=== PATIENT | female | born 1955 | race Caucasian/White ===

== ENCOUNTER → 2016-04-15 | Day surgery (SDC) | payer MEDICARE, OTHER ==
[~2016-04-15] MED LIST: ASPI81TA81 PO; CETI1TAB21 PO; CLIN1CAP6 PO; DAPT250I IV; EPIN1INJ21 IV PUSH; EPIN1INJ21 SQ; GABA300C5 PO; IBUP-232 PO; LEVO200T4 PO; LIDOCAINE HCL 1% PF 30 ML VIAL OTHER ONE; MAGN100T2 PO; MAGN1CAP2 PO; MSIR15 INTRACATH; NEXI20CA PO; NORC5TAB PO; PERC10TA27 PO; PRED20 PO; PROPOFOL 200 MG/20 ML AMP IV ONE; SERO300T PO; SODIUM CHLORIDE 0.9% 10 ML VIAL ONE; SOLU250I IV PUSH; TRAZ100T4 PO; TRAZ100T6 PO; TRIAMCINOLONE ACETONIDE 40 MG/ML VIAL NB ONE; ZOFR4TAB SL; ZYRTTAB2 PO; methylPREDNISolone ACETATE 80 MG/ML VIAL ONE
--- NOTE | 2016-04-15 22:36 | M6 ---
cc: PEDRO CUNNINGHAM M.D. DATE 04/15/2016 1955 PROCEDURE Fluoroscopically guided L5-S1 translaminar epidural steroid injection. History and physical was completed and signed. Consent was signed. Procedure site was marked. Medications were listed and reconciled. Pain score was recorded. Allergies were noted. Time out was taken. Fluoroscopy time was recorded where applicable. Sedation was administered or directed by Dr. Cunningham. The patient was given oxygen. The patient was monitored by a registered nurse. Total procedure time was greater than 15 minutes. IV was started, blood pressure cuff, pulse oximeter and EKG were applied. The patient was placed in the prone position on a Scottie table sedated with small amounts of propofol titrated to effect. Vital signs were monitored and remained stable throughout the procedure. The lumbar area was prepped with alcohol and 10% Betadine solution and draped with sterile drapes. Fluoroscopy was used to visualize the L5-S1 translaminar space. The skin was infiltrated with 1% Xylocaine using a 27 gauge needle. Then a 3-1/2 inch 18-gauge Sorto needle was advanced using fluoroscopic guidance and the [id number] technique into the epidural space at L5-S1 slightly to the left of the midline. There was negative aspiration for blood or any other type of fluid. The patient was given 10 mL of 0.5% Xylocaine 80 mg of Depo-Medrol. Following this, the patient was taken to the recovery room with stable vital signs neurologically intact. W. MD DAVID Monsivais/ /10:41 AM /10:33 PM
== END | disposition home or self-care (01) ==
LOC: PHSDC 08:23
PROVIDERS: ATTEND Pain Medicine Interventional Pain Medicine
DX: M54.9 Dorsalgia, unspecified (principal)
CPT/HCPCS: 62323; 99152; J1040; J3301

== ENCOUNTER → 2016-05-11 | Day surgery (SDC) | payer MEDICARE, OTHER ==
[~2016-05-11] MED LIST changes: +BUPIVACAINE HCL PF 0.5% 30 ML VIAL ONE; -LIDOCAINE HCL 1% PF 30 ML VIAL OTHER ONE; -SODIUM CHLORIDE 0.9% 10 ML VIAL ONE; +TRIAMCINOLONE ACETONIDE 40 MG/ML VIAL I-ARTICULR ONE; -TRIAMCINOLONE ACETONIDE 40 MG/ML VIAL NB ONE; +methylPREDNISolone ACETATE 40 MG/ML VIAL I-ARTICULR ONE; -methylPREDNISolone ACETATE 80 MG/ML VIAL ONE
--- NOTE | 2016-05-13 09:48 | M6 ---
cc: PEDRO CUNNINGHAM M.D. DATE: 05/11/2016 DATE OF : 1955 PROCEDURE Fluoroscopically guided injection bilateral sacroiliac joints. History and physical was completed and signed. Consent was signed. Procedure site was marked. Medications were listed and reconciled. Pain score was recorded. Allergies were noted. Time out was taken. Fluoroscopy time was recorded where applicable. Sedation was administered or directed by Dr. Cunningham. The patient was given oxygen. The patient was monitored by a registered nurse. Total procedure time was greater than 15 minutes. IV was started, blood pressure cuff, pulse oximeter and EKG were applied. The patient was placed in the prone position on a Scottie table, sedated with small amounts of propofol titrated to effect. Vital signs were monitored and remained stable throughout the procedure. Sacral area was prepped with alcohol and 10% Betadine solution and draped with sterile drapes. Fluoroscopy was used shooting from medial to lateral to clearly visualize the posterior joint line of the bilateral sacroiliac joints. Separate sterile 5-inch 22-gauge spinal needles were advanced into these joints under fluoroscopic guidance. There was negative aspiration for blood or any other type of fluid and the patient was given 2 mL of 0.5% Marcaine, 20 mg of Depo-Medrol and 20 mg of Kenalog at each location. Following this the patient was observed in the recovery area with stable vital signs prior to being discharged. W. MD DAVID Monsivais/BETY /10:37 AM /9:36 AM
== END | disposition home or self-care (01) ==
LOC: PHSDC 08:21
PROVIDERS: ATTEND Pain Medicine Interventional Pain Medicine
DX: M54.5 Low back pain (principal)
CPT/HCPCS: 99152; G0260; J1030; J3301; 27096

== ENCOUNTER 2016-06-11 09:26 | Emergency (ER) | payer MEDICARE, OTHER ==
[~2016-06-11] VITALS: Ht 167.6 cm; Wt 88.0 kg
[~2016-06-11 09:26] MED LIST changes: -BUPIVACAINE HCL PF 0.5% 30 ML VIAL ONE; -CETI1TAB21 PO; -CLIN1CAP6 PO; -DAPT250I IV; -EPIN1INJ21 IV PUSH; -EPIN1INJ21 SQ; -MAGN100T2 PO; -NEXI20CA PO; -NORC5TAB PO; -PRED20 PO; -PROPOFOL 200 MG/20 ML AMP IV ONE; -SOLU250I IV PUSH; -TRAZ100T6 PO; -TRIAMCINOLONE ACETONIDE 40 MG/ML VIAL I-ARTICULR ONE; -methylPREDNISolone ACETATE 40 MG/ML VIAL I-ARTICULR ONE
[2016-06-11 09:35] VITALS: BP 155/72; PULSE 51; RESP 14; TEMP 97.9; O2SAT 95
--- NOTE | 2016-06-11 10:21 | PD ---
HPI Chief Complaint: Injury Time Seen by Provider: 10:17 Travel History International Travel<30 days: No Contact w/Intl Traveler<30days: No Traveled to known affect area: No History of Present Illness HPI 61-year-old female presents to the emergency department for evaluation of erythema and pain to her left third finger. She states she has a broken finger for 3 months. She cannot remember how she broke her finger, but states she has been treated by her primary care physician is supposed to get a referral to a hand surgeon, but has not yet gotten it. She states that since she broke it 3 months ago, she has been unable to move the DIP joint. She states she states the splint off yesterday and noticed some erythema and worsening pain. She reports some purulent drainage yesterday, but none today. She denies any fevers or chills. Patient is drowsy during my exam, but is easily arousable. She does report having a morphine pump due to chronic back pain. She denies any other complaints or injuries at this time. PFSH Past Medical History Hx Anticoagulant Therapy: Yes Arthritis: Yes Asthma: No Atrial Fibrillation: Yes Autoimmune Disease: No Blood Disorders: No Anxiety: Yes Depression: Yes Heart Rhythm Problems: No Cancer: Yes (HX THYROID CA) Cardiac Catheterization: Yes (20 % CLOGGED ) Cardiovascular Problems: Yes High Cholesterol: Yes Chemotherapy: No Chest Pain: Yes Congestive Heart Failure: No COPD: No Cerebrovascular Accident: No Coronary Artery Disease: Yes Diabetes: No Diminished Hearing: No Endocrine: Yes Gastrointestinal Disorders: Yes GERD: Yes Glaucoma: No Genitourinary: No Headaches: No Hepatitis: No Hiatal Hernia: No Hypertension: Yes (PT DENIES) Immune Disorder: No Implanted Vascular Access Dvce: Yes Kidney Stones: No Medical other: Yes (GERD, HX ULCERS ; ARTHRITIS) Musculoskeletal: Yes Neurologic: Yes Psychiatric: Yes Reproductive: No Respiratory: Yes (COPD ) Migraines: Yes Myocardial Infarction: No Radiation Therapy: Yes Renal Failure: No Seizures: No Sickle Cell Disease: No Sleep Apnea: Yes (O2 2L NC AT NIGHT) Thyroid Disease: Yes Ulcer: Yes PNEUMOCCOCAL Vaccine (Year): 2 ?: Not Menopausal: Yes Tubal Ligation: Yes Past Surgical History Abdominal Surgery: Yes (STOMACH SURGERY FOR ACID REFLUX) AICD: No Appendectomy: No Arteriovenous Shunt: No Body Medical Devices: MORPHINE PUMP LEFT LOWER ABD NEW ONE 02/2012 Cardiac Surgery: No Cholecystectomy: Yes Coronary Artery Bypass Graft: No Ear Surgery: No Endocrine Surgery: Yes (THYROIDECTOMY RELATED TO CANCER) Eye Surgery: No Genitourinary Surgery: No Gynecologic Surgery: Yes (TUBAL LIG.) Hysterectomy: No Insulin Pump: No Joint Replacement: No Neurologic Surgery: No Oral Surgery: Yes Pacemaker: No Thoracic Surgery: Yes Tonsillectomy: Yes Other Surgery: Yes (THYROIDECTOMY) Social History Alcohol Use: No Tobacco Use: No Substance Use: No Allergies-Medications (Allergen,Severity, Reaction): Coded Allergies: Bactrim (Verified Allergy, Severe, 06/11/16) Codeine (Verified Allergy, Severe, NAUSEA, 06/11/16) Flexeril (Verified Allergy, Severe, 06/11/16) Paxil (Verified Allergy, Severe, 06/11/16) MRI PRECAUTION (Verified Adverse Reaction, Severe, IMPLANTED MORPHINE PUMP -ABD-JA-06/02/09, 06/11/16) Reported Meds & Prescriptions Reported Meds & Active Scripts Active Reported Aspir-81 (Aspirin) 81 Mg Tabdr 1 Tab PO HS Zyrtec-D Allergy/Congestion 12 HR (Cetirizine-Pseudoephedrine 12 HR) 5-120 Mg Tab 1 Tab PO HS Gabapentin 300 Mg Cap 300 Mg PO BID Ibuprofen 600 Mg Tab 600 Mg PO Q8HR PRN Levothyroxine (Levothyroxine Sodium) 200 Mcg Tab 200 Mcg PO DAILY Magnesium Citrate 125 Mg Cap 250 Mg PO DAILY PRN Morphine IR (Morphine Sulfate) 15 Mg Tab 15 Mg INTRACATH Q1HR NEB PRN Zofran (Ondansetron HCl) 4 Mg Tab 4 Mg SL Q6HR PRN Percocet (Oxycodone-Acetaminophen) 10-325 mg Tab 1 Tab PO Q6H PRN Seroquel (Quetiapine Fumarate) 300 Mg Tab 300 Mg PO DAILY Trazodone (Trazodone HCl) 100 Mg Tab 200 Mg PO HS Review of Systems Except as stated in HPI: all other systems reviewed are Neg Physical Exam Narrative GENERAL: Well-developed well-nourished female patient ambulatory. Afebrile., SKIN: Warm and dry. Patient has some mild erythema to the distal aspect of left third nail. This is consistent with a paronychia. No fluctuance at this time. HEAD: Normocephalic. Atraumatic. EYES: No scleral icterus. No injection or drainage. NECK: Supple, trachea midline. No JVD or lymphadenopathy. CARDIOVASCULAR: Regular rate and rhythm without murmurs, gallops, or rubs. RESPIRATORY: Breath sounds equal bilaterally. No accessory muscle use. Lungs sounds clear to auscultation. MUSCULOSKELETAL: No cyanosis, or edema. Data Data Last Documented VS Vital Signs Date Time Temp Pulse Resp B/P Pulse Ox O2 Delivery O2 Flow Rate FiO2 06/11/16 09:35 97.9 51 14 155/72 95 Orders Finger ([id number]) (06/11/16 ) MDM Medical Decision Making Medical Screen Exam Complete: Yes Emergency Medical Condition: Yes Medical Record Reviewed: Yes Interpretation(s) Last Impressions Finger X-Ray 06/11/16 0000 Signed Impressions: Service Date/Time: , June 11, 2016 10:36 - CONCLUSION: Erosive arthritic process of the distal interphalangeal joint of the third finger with significant soft tissue swelling. No definite evidence of fracture. Jesus Montiel MD Differential Diagnosis paronychia versus cellulitis versus fracture Narrative Course 61-year-old female presents to the emergency department for evaluation of worsening left third finger pain that she took off the splint yesterday. Physical exam is consistent with a paronychia. It does appear this paronychia has already drained as there is no fluctuance at this time. X-ray of the left third finger is ordered and pending. Patient will be started on clindamycin for paronychia. She is allergic to Bactrim. X-ray left third finger shows erosive arthritic process of the distal interphalangeal joint of the third finger with significant soft tissue swelling. No definite evidence of fracture. I discussed the case with my attending physician, Dr. Sloan, who also examined the patient. He reviewed x-ray He thinks the patient may have a reactive arthritis or possibly gout. Patient will be discharged prescription for clindamycin for possible cellulitis and prednisone for inflammation. The patient is agreeable to this plan. The patient was discharged in stable condition with instructions, including return instructions and follow up instructions. Diagnosis Primary Impression: Cellulitis of finger of left hand Additional Impression: Arthritis Referrals: Margarita Arshad MD call for appointment Patient Instructions: Arthritis (ED), Cellulitis (ED), General Instructions Additional Instructions: Take antibiotic as directed until gone. Take prednisone as directed. Follow-up with a hand surgeon. Dr. Arshad is the hand surgeon contact assembler today. Her number is attached. Wear splint. Return to the emergency department for any acute worsening of symptoms. Med/Other Pt SpecificInfo: Prescription(s) given Scripts Prednisone 20 Mg Tab20 Mg PO BID 5 Days Ref 0 Prov:Marguerite Coelho 06/11/16 Clindamycin 300 Mg [id number] Mg PO Q6H 10 Days Ref 0 Prov:Marguerite Coelho 06/11/16 Disposition: 01 DISCHARGE HOME Condition: Stable Marguerite Coelho Jun 11, 2016 10:21
--- NOTE | 2016-06-11 10:58 | RADRPT ---
EXAM DATE/TIME: 06/11/2016 10:36 [facility] COMPARISON: No previous studies available for comparison. INDICATIONS : Patient states she broke her finger three months ago. Distal interphalangeal joint of third digit on left hand is swollen and red. MEDICAL HISTORY : Cardiovascular disease. Hypertension. SURGICAL HISTORY : Cholecystectomy. Tubal ligation. ENCOUNTER: Initial ACUITY: 3 months PAIN SCORE: 8/10 LOCATION: Left Third digit. FINDINGS: Examination of the third digit of the left hand demonstrates articular and periarticular bony erosion s. Discrete fracture is not obvious. There significant paratracheal inflammation especially along the dorsum of the distal interphalangeal joint. CONCLUSION: Erosive arthritic process of the distal interphalangeal joint of the third finger with significant so ft tissue swelling. No definite evidence of fracture. Jesus Montiel MD on June 11, 2016 at 10:55 Board Certified Radiologist. This report was verified electronically.
[2016-06-11] MEDS ORDERED: CLIN1CAP6 PO (11:19)
[2016-06-11] MEDS ORDERED: PRED20 PO (11:19)
[2016-09-28] MEDS ORDERED: MAGN100T2 PO (11:11)
[2016-09-28] MEDS ORDERED: TRAZ100T6 PO (11:11)
[2016-09-28] MEDS ORDERED: CETI1TAB21 PO (11:11)
== END 2016-06-11 11:46 | disposition home or self-care (01) ==
LOC: NEPB 09:26
DX: L03.012 Cellulitis of left finger (principal); M19.90 Unspecified osteoarthritis, unspecified site; I48.91 Unspecified atrial fibrillation; Z79.01 Long term (current) use of anticoagulants
CPT/HCPCS: 73140; 99283

== ENCOUNTER 2016-07-11 08:47 | Inpatient (IN) | payer MEDICARE, OTHER ==
[2016-07-11] VITALS (12 sets, daily range): BP systolic 157–173; BP diastolic 72–101; PULSE 57–101; RESP 13–32; TEMP 98.1–100; O2SAT 92–98
[~2016-07-11] VITALS: Ht 168.9 cm; Wt 87.2 kg
[~2016-07-11 08:47] MED LIST changes: +CLIN1CAP6 PO; +PRED20 PO
[2016-07-11] MEDS ORDERED: LORazepam 2 MG/ML VIAL ONE (08:51)
[2016-07-11] MEDS ORDERED: HALOPERIDOL LACTATE 5 MG/ML AMP ONE (08:51)
[2016-07-11] MEDS ORDERED: LORazepam 2 MG/ML VIAL IM ONE (09:00)
[2016-07-11] MEDS ORDERED: HALOPERIDOL LACTATE 5 MG/ML AMP IM ONE (09:00)
--- NOTE | 2016-07-11 09:06 | PD ---
HPI Chief Complaint: altered mental status Time Seen by Provider: 08:50 Travel History International Travel<30 days: No Contact w/Intl Traveler<30days: No Traveled to known affect area: No History of Present Illness HPI 61-year-old female was brought in by EMS for altered mental status. Patient's mother called EMS this morning because patient was pacing around her place. Patient was cooperative in the beginning and then became combative on the way to the ED. Patient has history of chronic back pain and is on morphine pump. No known psychiatric history was obtained. In view of medical record, Patient is on trazodone, Seroquel. Patient also has history thyroid cancer status post thyroidectomy and on levothyroxine. Patient's uncooperative, combative now and unable to provide any information. Patient complains of hurting all over the body. PFSH Past Medical History Hx Anticoagulant Therapy: Yes Arthritis: Yes Asthma: No Atrial Fibrillation: Yes Autoimmune Disease: No Blood Disorders: No Anxiety: Yes Depression: Yes Heart Rhythm Problems: No Cancer: Yes (HX THYROID CA) Cardiac Catheterization: Yes (20 % CLOGGED ) Cardiovascular Problems: Yes High Cholesterol: Yes Chemotherapy: No Chest Pain: Yes Congestive Heart Failure: No COPD: No Cerebrovascular Accident: No Coronary Artery Disease: Yes Diabetes: No Diminished Hearing: No Endocrine: Yes Gastrointestinal Disorders: Yes GERD: Yes Glaucoma: No Genitourinary: No Headaches: No Hepatitis: No Hiatal Hernia: No Hypertension: Yes (PT DENIES) Immune Disorder: No Implanted Vascular Access Dvce: Yes Kidney Stones: No Musculoskeletal: Yes Neurologic: Yes Psychiatric: Yes Reproductive: No Respiratory: Yes (COPD ) Migraines: Yes Myocardial Infarction: No Radiation Therapy: Yes Renal Failure: No Seizures: No Sickle Cell Disease: No Sleep Apnea: Yes (O2 2L NC AT NIGHT) Thyroid Disease: Yes Ulcer: Yes PNEUMOCCOCAL Vaccine (Year): 2 Menopausal: Yes Tubal Ligation: Yes Past Surgical History Abdominal Surgery: Yes (STOMACH SURGERY FOR ACID REFLUX) AICD: No Appendectomy: No Arteriovenous Shunt: No Body Medical Devices: MORPHINE PUMP LEFT LOWER ABD NEW ONE 02/2012 Cardiac Surgery: No Cholecystectomy: Yes Coronary Artery Bypass Graft: No Ear Surgery: No Endocrine Surgery: Yes (THYROIDECTOMY RELATED TO CANCER) Eye Surgery: No Genitourinary Surgery: No Gynecologic Surgery: Yes (TUBAL LIG.) Hysterectomy: No Insulin Pump: No Joint Replacement: No Neurologic Surgery: No Oral Surgery: Yes Pacemaker: No Thoracic Surgery: Yes Tonsillectomy: Yes Other Surgery: Yes (THYROIDECTOMY) Social History Alcohol Use: No Tobacco Use: No Substance Use: No Allergies-Medications (Allergen,Severity, Reaction): Coded Allergies: Bactrim (Verified Allergy, Severe, 06/11/16) Codeine (Verified Allergy, Severe, NAUSEA, 06/11/16) Flexeril (Verified Allergy, Severe, 06/11/16) Paxil (Verified Allergy, Severe, 06/11/16) MRI PRECAUTION (Verified Adverse Reaction, Severe, IMPLANTED MORPHINE PUMP -ABD-JA-06/02/09, 06/11/16) Reported Meds & Prescriptions Reported Meds & Active Scripts Active Prednisone 20 Mg Tab 20 Mg PO BID 5 Days Clindamycin (Clindamycin HCl) 300 Mg Cap 300 Mg PO Q6H 10 Days Reported Aspir-81 (Aspirin) 81 Mg Tabdr 1 Tab PO HS Zyrtec-D Allergy/Congestion 12 HR (Cetirizine-Pseudoephedrine 12 HR) 5-120 Mg Tab 1 Tab PO HS Gabapentin 300 Mg Cap 300 Mg PO BID Ibuprofen 600 Mg Tab 600 Mg PO Q8HR PRN Levothyroxine (Levothyroxine Sodium) 200 Mcg Tab 200 Mcg PO DAILY Magnesium Citrate 125 Mg Cap 250 Mg PO DAILY PRN Morphine IR (Morphine Sulfate) 15 Mg Tab 15 Mg INTRACATH Q1HR NEB PRN Zofran (Ondansetron HCl) 4 Mg Tab 4 Mg SL Q6HR PRN Percocet (Oxycodone-Acetaminophen) 10-325 mg Tab 1 Tab PO Q6H PRN Seroquel (Quetiapine Fumarate) 300 Mg Tab 300 Mg PO DAILY Trazodone (Trazodone HCl) 100 Mg Tab 200 Mg PO HS Review of Systems ROS Limitations: Altered Mental Status Physical Exam Narrative GENERAL: Well-nourished, well-developed patient. SKIN: Focused skin assessment warm/dry. HEAD: Normocephalic. EYES: No scleral icterus. No injection or drainage. Pupils 2 mm equal reactive. NECK: Supple, trachea midline. No JVD or lymphadenopathy. CARDIOVASCULAR: Regular rate and rhythm without murmurs, gallops, or rubs. RESPIRATORY: Breath sounds equal bilaterally. No accessory muscle use. GASTROINTESTINAL: Abdomen soft, non-tender, nondistended. MUSCULOSKELETAL: No cyanosis, or edema. BACK: Nontender without obvious deformity. No CVA tenderness. Neurologic exam: Patient's combative, uncooperative. Patient moves all extremities well. No obvious focal neurological deficit. Data Data Last Documented VS Vital Signs Date Time Temp Pulse Resp B/P Pulse Ox O2 Delivery O2 Flow Rate FiO2 07/11/16 09:06 98 07/11/16 09:06 165/88 07/11/16 08:49 100.0 101 21 Orders Lorazepam Inj (Ativan Inj) (07/11/16 09:00) Haloperidol Inj (Haldol Inj) (07/11/16 09:00) Haloperidol Inj (Haldol Inj) (07/11/16 08:51) Lorazepam Inj (Ativan Inj) (07/11/16 08:51) Complete Blood Count With Diff (07/11/16 08:58) Comprehensive Metabolic Panel (07/11/16 08:58) Prothrombin Time / Inr (Pt) (07/11/16 08:58) Act Partial Throm Time (Ptt) (07/11/16 08:58) Blood Culture (07/11/16 08:58) Urinalysis - C+S If Indicated (07/11/16 08:58) Cath For Specimen (07/11/16 08:58) Thyroid Stimulating Hormone (07/11/16 08:58) Chest, Single Ap (07/11/16 08:58) Ct Brain W/O Iv Contrast(Rout) (07/11/16 08:58) Iv Access Insert/Monitor (07/11/16 08:58) Ecg Monitoring (07/11/16 08:58) Oximetry (07/11/16 08:58) Drug Screen, Random Urine (07/11/16 08:58) Alcohol (Ethanol) (07/11/16 08:58) Salicylates (Aspirin) (07/11/16 08:58) Tylenol (Acetaminophen) (07/11/16 08:58) Lactic Acid (07/11/16 08:58) Restraints Violent (07/11/16 09:09) Urinary Catheter Insert/Apply (07/11/16 09:10) Vancomycin Inj (Vancomycin Inj) (07/11/16 10:45) Piperacil-Tazo 3.375 Gm Premix (Zosyn 3. (07/11/16 10:45) Lactic Acid (07/11/16 10:55) Free T3 (07/11/16 10:56) Free Thyroxine (T4) (07/11/16 10:56) Aspirin Ec (Ecotrin Ec) (07/11/16 21:00) Lactic Acid (07/11/16 10:58) Arterial Blood Gas (Abg) (07/11/16 ) Sodium Chlor 0.9% 1000 Ml Inj (Ns 1000 M (07/11/16 11:00) Sodium Chlor 0.9% 1000 Ml Inj (Ns 1000 M (07/11/16 11:00) Sodium Chlor 0.9% 1000 Ml Inj (Ns 1000 M (07/11/16 11:00) Potassium Chlor 20 Meq Premix (Kcl 20 Me (07/11/16 11:00) Admit To Inpatient (07/11/16 ) Code Status (07/11/16 10:59) Vital Signs (Adult) MICHAEL.Q1H (07/11/16 10:59) Activity Bed Rest (07/11/16 10:59) ^ Elevate Head Of Bed (07/11/16 10:59) Diet Npo (07/11/16 Lunch) Sodium Chlor 0.9% 1000 Ml Inj (Ns 1000 M (07/11/16 10:59) Sodium Chloride 0.9% Flush (Ns Flush) (07/11/16 21:00) Acetaminophen (Tylenol) (07/11/16 11:00) Pantoprazole Inj (Protonix Inj) (07/12/16 09:00) Albuterol-Ipratropium Neb (Duoneb Neb) (07/11/16 11:00) Albuterol-Ipratropium Neb (Duoneb Neb) (07/11/16 11:00) Complete Blood Count With Diff (07/12/16 04:00) Comprehensive Metabolic Panel (07/12/16 04:00) Magnesium (Mg) (07/12/16 04:00) Lactic Acid (07/11/16 15:00) Chest, Single Ap (07/12/16 06:00) Echo 2d Comp W/Dopp(Routine) (07/11/16 ) Cpr Ambulance Driver / Telemetry MICHAEL.Q8H (07/11/16 10:59) Scd Bilateral/Knee High MICHAEL.BID (07/11/16 10:59) Eduardo Bilateral/Knee High MICHAEL.QSHIFT (07/11/16 10:59) ^ Initiate Protocol (07/11/16 10:59) ^ Instruction (07/11/16 10:59) Misc Nursing Information (07/11/16 11:00) Chlorhexidine 2% Cloth (Chlorhexidine 2% (07/12/16 04:00) Chlorhexidine 2% Cloth (Chlorhexidine 2% (07/11/16 11:00) Mrsa Pcr Surveillance (07/11/16 10:59) Inpatient Certification (07/11/16 ) Piperacil-Tazo 3.375 Gm Premix (Zosyn 3. (07/11/16 11:15) Levofloxacin 750 Mg Premix Inj (Levaquin (07/11/16 11:15) Labs Laboratory Tests Test 07/11/16 09:15 White Blood Count 9.0 TH/MM3 Red Blood Count 3.77 MIL/MM3 Hemoglobin 11.4 GM/DL Hematocrit 34.1 % Mean Corpuscular Volume 90.4 FL Mean Corpuscular Hemoglobin 30.4 PG Mean Corpuscular Hemoglobin 33.6 % Concent Red Cell Distribution Width 14.5 % Platelet Count 226 TH/MM3 Mean Platelet Volume 8.3 FL Neutrophils (%) (Auto) 71.9 % Lymphocytes (%) (Auto) 18.6 % Monocytes (%) (Auto) 9.0 % Eosinophils (%) (Auto) 0.0 % Basophils (%) (Auto) 0.5 % Neutrophils # (Auto) 6.4 TH/MM3 Lymphocytes # (Auto) 1.7 TH/MM3 Monocytes # (Auto) 0.8 TH/MM3 Eosinophils # (Auto) 0.0 TH/MM3 Basophils # (Auto) 0.0 TH/MM3 CBC Comment DIFF FINAL Differential Comment Prothrombin Time 11.4 SEC Prothromb Time International 1.0 RATIO Ratio Activated Partial 24.6 SEC Thromboplast Time Urine Color YELLOW Urine Turbidity CLEAR Urine pH 8.0 Urine Specific [place] 1.015 Urine Protein 30 mg/dL Urine Glucose (UA) NEG mg/dL Urine Ketones 80 mg/dL Urine Occult Blood SMALL Urine Nitrite NEG Urine Bilirubin NEG Urine Urobilinogen LESS THAN 2.0 MG/DL Urine Leukocyte Esterase NEG Urine Squamous Epithelial <1 /hpf Cells Microscopic Urinalysis Comment CULT NOT INDICATED Sodium Level 141 MEQ/L Potassium Level 3.0 MEQ/L Chloride Level 103 MEQ/L Carbon Dioxide Level 17.1 MEQ/L Anion Gap 21 MEQ/L Blood Urea Nitrogen 11 MG/DL Creatinine 1.51 MG/DL Estimat Glomerular Filtration 35 ML/MIN Rate Random Glucose 139 MG/DL Lactic Acid Level 11.8 mmol/L Calcium Level 9.1 MG/DL Total Bilirubin 0.5 MG/DL Aspartate Amino Transf 44 U/L (AST/SGOT) Alanine Aminotransferase 17 U/L (ALT/SGPT) Alkaline Phosphatase 73 U/L Total Protein 8.7 GM/DL Albumin 3.5 GM/DL Thyroid Stimulating Hormone 0.010 uIU/ML 3rd Gen Salicylates Level 1.8 MG/DL Urine Opiates Screen POS Acetaminophen Level LESS THAN 2.0 MCG/ML Urine Barbiturates Screen NEG Urine Amphetamines Screen NEG Urine Benzodiazepines Screen NEG Urine Cocaine Screen NEG Urine Cannabinoids Screen NEG Ethyl Alcohol Level LESS THAN 3 MG/DL MDM Medical Decision Making Medical Screen Exam Complete: Yes Emergency Medical Condition: Yes Interpretation(s) 10:30 AM. Last Impressions Head CT 07/11/16857 Signed Impressions: Service Date/Time: Monday, July 11, 2016 09:27 - CONCLUSION: Normal examination. Richa Luna MD Chest X-Ray 07/11/16857 Signed Impressions: Service Date/Time: Monday, July 11, 2016 09:43 - CONCLUSION: Abnormal exam with findings suggestive of either noncardiogenic pulmonary edema versus volume overload. Richa Luna MD 10:39 AM. CBC within normal limit. WBC 9.0. 71 neutrophil. Potassium 3.0. Bicarbonate 17.1. Creatinine 1.51. Lactic acid 11.8. TSH 0.010. Urine drug screen positive for opiates. UA negative. Differential Diagnosis Differential diagnosis including acute psychosis, schizophrenia, electrolyte imbalance, sepsis, intracranial pathology. Narrative Course 61-year-old female with altered mental status. Patient's combative upon arrival to ED. Restraint was ordered. Ativan 2 mg IM. Haldol 5 mg IM given. Vancomycin 1 g IV. Zosyn 3.375 g IV given. I spoke with Dr. Londono, technical service specialist. Normal saline solution 3 L IV bolus. Repeat lactic acid. Patient will be admitted to [facility]. Diagnosis Primary Impression: Sepsis Qualified Code: A41.9 - Sepsis, due to unspecified organism Ned Sloan MD Jul 11, 2016 09:06
[2016-07-11 09:40] LABS: AUTOMATED NEUTROPHIL # 6.4 TH/MM3 (1.8-7.7); BASOPHIL % 0.5 % (0.0-2.0); HEMATOCRIT 34.1 % (35.0-46.0); HEMO FLAGS DIFF FINAL; LYMPH % 18.6 % (9.0-44.0); LYMPHOCYTE # 1.7 TH/MM3 (1.0-4.8); MEAN CELL VOLUME 90.4 FL (80.0-100.0); MEAN CORPUSCULAR HEMOGLOBIN 30.4 PG (27.0-34.0); MEAN CORPUSCULAR HGB CONC 33.6 % (32.0-36.0); NEUT % 71.9 % (16.0-70.0); PLATELET COUNT 226 TH/MM3 (150-450); RED BLOOD COUNT 3.77 MIL/MM3 (4.00-5.30); RED CELL DISTRIBUTION WIDTH 14.5 % (11.6-17.2)
--- NOTE | 2016-07-11 09:47 | RADRPT ---
EXAM DATE/TIME: 07/11/2016 09:27 [facility] COMPARISON: CT BRAIN W/O CONTRAST, November 22, 2015, 20:09. INDICATIONS : Altered mental status. RADIATION DOSE: 56.35 CTDIvol (mGy) MEDICAL HISTORY : Hypertension. Cardiovascular disease SURGICAL HISTORY : None. ENCOUNTER: Initial ACUITY: 1 day PAIN SCALE: Non-responsive LOCATION: cranial TECHNIQUE: Multiple contiguous axial images were obtained of the head. Using automated exposure control and adj ustment of the mA and/or kV according to patient size, radiation dose was kept as low as reasonably a chievable to obtain optimal diagnostic quality images. FINDINGS: CEREBRUM: The ventricles are normal for age. No evidence of midline shift, mass lesion, hemorrhage or acute in farction. No extra-axial fluid collections are seen. POSTERIOR FOSSA: The cerebellum and brainstem are intact. The 4th ventricle is midline. The cerebellopontine angle i s unremarkable. EXTRACRANIAL: The visualized portion of the orbits is intact. SKULL: The calvaria is intact. No evidence of skull fracture. CONCLUSION: Normal examination. Richa Luna MD on July 11, 2016 at 9:44 Board Certified Radiologist. This report was verified electronically.
[2016-07-11 09:49] LABS: APTT (PATIENT) 24.6 SEC (24.3-30.1); PROTHROMBIN TIME - PATIENT 11.4 SEC (9.8-11.6)
[2016-07-11 09:59] LABS: BLOOD, URINE SMALL (NEG); GLUCOSE,URINE NEG (NEG); KETONE, URINE 80 mg/dL (NEG); NITRITE,URINE NEG (NEG); SQUAMOUS EPITHELIAL CELL URINE <1 /hpf (0-5); URINE COLOR YELLOW (YELLW/STRAW)
--- NOTE | 2016-07-11 09:59 | RADRPT ---
EXAM DATE/TIME: 07/11/2016 09:43 [facility] COMPARISON: CHEST SINGLE AP, November 22, 2015, 18:26. INDICATIONS : Altered mental status. MEDICAL HISTORY : Hypertension. Cardiovascular disease. SURGICAL HISTORY : None. ENCOUNTER: Initial ACUITY: 1 day PAIN SCORE: Non-responsive. LOCATION: Bilateral chest FINDINGS: Single view of the chest demonstrates interval enlargement of the cardiac silhouette, likely artifact secondary to supine imaging. There is cephalization of pulmonary vasculature with adjacent indistinc tness of the parenchyma concerning for possible noncardiogenic pulmonary edema or versus volume overl oad. CONCLUSION: Abnormal exam with findings suggestive of either noncardiogenic pulmonary edema versus volume overloa dVasiliy Luna MD on July 11, 2016 at 9:55 Board Certified Radiologist. This report was verified electronically.
[2016-07-11 10:00] LABS: COMMENT (UR) CULT NOT INDICATED; CULTURE IF INDICATED CULT NOT INDICATED
[2016-07-11 10:02] LABS: ANION GAP 21 MEQ/L (5-15)
[2016-07-11 10:12] LABS: ALKALINE PHOSPHATASE 73 U/L (45-117); ALT (GPT) 17 U/L (10-53); AST (GOT) 44 U/L (15-37); BICARBONATE 17.1 MEQ/L (21.0-32.0); BLOOD UREA NITROGEN 11 MG/DL (7-18); CHLORIDE 103 MEQ/L (98-107); GLOMERULAR FILTRATION RATE 35 ML/MIN (>89); SODIUM (NA) 141 MEQ/L (136-145); TOTAL BILIRUBIN ADULT 0.5 MG/DL (0.2-1.0)
[2016-07-11 10:13] LABS: AMPHETAMINE, URINE NEG (NEG); BARBITURATES, URINE NEG (NEG); COCAINE, URINE NEG (NEG)
[2016-07-11 10:15] LABS: ACETAMINOPHEN LESS THAN 2.0 MCG/ML (10.0-30.0)
[2016-07-11] MEDS ORDERED: PIPERACIL-TAZO 3.375 GM PREMIX 50 ML IV ONE (10:45)
[2016-07-11] MEDS ORDERED: VANCOMYCIN INJ 1,000 MG in SODIUM CHLOR 0.9% 250 ML INJ 250 ML IV ONE (10:45)
[2016-07-11] MEDS: RESP: ALBUTEROL 2.5 MG/IPRATROPIUM 0.5 MG NEB (SCH) INH ×3 (11:00→20:39)
[2016-07-11] MEDS ORDERED: CHLORHEXIDINE GLUCONATE 2 % 1 PACK (2 CLOTHS) TOP PRN (11:00)
[2016-07-11] MEDS ORDERED: MISCELLANEOUS NURSING INFORMATION XX SCH (11:00)
[2016-07-11] MEDS ORDERED: POTASSIUM CHLOR 20 MEQ PREMIX 100 ML IV ONE (11:00)
[2016-07-11] MEDS ORDERED: RESP: ALBUTEROL 2.5 MG/IPRATROPIUM 0.5 MG NEB (PRN) INH (11:00)
[2016-07-11] MEDS ORDERED: SODIUM CHLOR 0.9% 1000 ML INJ 1,000 ML IV ONE ×3 (11:00)
[2016-07-11 11:18] LABS: BLOOD GAS BASE EXCESS 1.2 mmol/L (-2-2); BLOOD GAS CARBOXYHEMOGLOBIN 1.2 % (0-4); BLOOD GAS HCO3 25 mmol/L (22-26); BLOOD GAS METHEMOGLOBIN 0.5 % (0-2); BLOOD GAS O2 HGB SATURATION 93 % (90-100); BLOOD GAS PCO2 40 mmHg (38-42); BLOOD GAS PO2 71 mmHG (61-120); CRITICAL VALUE NO; DRAW SITE RT RADIAL; FIO2 21 %; NUMBER OF ARTERIAL PUNCTURES 1; OXYGEN DEVICE BiPAP; STAT YES; TEMP CORR TO 98.6; ULNAR PULSE PRESENT
--- NOTE | 2016-07-11 11:50 | RADRPT ---
EXAM DATE/TIME: 07/11/2016 11:21 [facility] COMPARISON: CT ABDOMEN & PELVIS W/O CONTRAST, May 20, 2015, 12:21. INDICATIONS : Evaluate for infection. ORAL CONTRAST: No oral contrast ingested. RADIATION DOSE: 9.96 CTDIvol (mGy) ; Combined studies - Thorax/Abdomen/Pelvis MEDICAL HISTORY : Carcinoma, thyroid. Cardiovascular disease SURGICAL HISTORY : Cholecystectomy. ENCOUNTER: Initial ACUITY: 1 day PAIN SCALE: Non-responsive LOCATION: Bilateral abdomen. TECHNIQUE: Volumetric scanning of the abdomen and pelvis was performed. Using automated exposure control and adjustment of the mA and/or kV according to patient size, radiation dose was kept as low as reasonably achievable to obtain optimal diagnostic quality images. FINDINGS: LOWER LUNGS: The visualized lower lungs are clear. LIVER: Homogeneous density without lesion. There is no dilation of the biliary tree. No calcifi ed gallstones. SPLEEN: Normal size without lesion. PANCREAS: Within normal limits. KIDNEYS: Stable appearance of multifocal left renal cortical thinning. The right kidney demonstra lolita similar areas of cortical thinning but to a lesser extent. This pattern is unchanged. No evidence of stones, concerning mass or hydronephrosis. ADRENAL GLANDS: Within normal limits. VASCULAR: There is no aortic aneurysm. BOWEL/MESENTERY: The stomach, small bowel, and colon demonstrate no acute abnormality. There is no free intraperitoneal air or fluid. Stable diverticuli identified within the descending and sigmoid colon without evidence of adjacent inflammatory change. ABDOMINAL WALL: Within normal limits. There is a neurostimulator overlies the left pelvis. RETROPERITONEUM: There is no lymphadenopathy. BLADDER: No wall thickening or mass. Carney balloon identified within the bladder. REPRODUCTIVE: Within normal limits. INGUINAL: There is no lymphadenopathy or hernia. MUSCULOSKELETAL: Within normal limits for patient age. CONCLUSION: No evidence of inflammatory process within the abdomen or pelvis. Stable areas of sandee al cortical thinning consistent with prior infection and scar. Stable diverticulosis. Richa perales MD on July 11, 2016 at 11:44 Board Certified Radiologist. This report was verified electronically.
--- NOTE | 2016-07-11 11:54 | RADRPT ---
EXAM DATE/TIME: 07/11/2016 11:21 [facility] COMPARISON: CT PULMONARY ANGIOGRAM, May 07, 2015, 19:04. INDICATIONS : Evaluate for infection. RADIATION DOSE: 9.96 CTDIvol (mGy) ; Combined studies - Thorax/Abdomen/Pelvis MEDICAL HISTORY : Carcinoma, not otherwise specified. Cardiovascular disease Ulcer. SURGICAL HISTORY : Cholecystectomy. ENCOUNTER: Initial ACUITY: 1 day PAIN SCALE: Non-responsive LOCATION: Bilateral chest TECHNIQUE: Volumetric scanning of the chest was performed. Using automated exposure control and adjustment of t he mA and/or kV according to patient size, radiation dose was kept as low as reasonably achievable to obtain optimal diagnostic quality images. FINDINGS: There is stable significant cardiomegaly present with diffuse engorgement of the pulmonary vascu lature and adjacent perivascular ground glass opacity. These findings are consistent with congestive heart failure or pulmonary edema. No evidence of air space consolidation, mass or pneumothorax. The osseous structures of the thorax are unremarkable. CONCLUSION: No evidence of infection. Findings consistent with congestive heart failure and pulmonary edema. This is a new finding as compared to the prior CT. Richa Luna MD on July 11, 2016 at 11:49 Board Certified Radiologist. This report was verified electronically.
[2016-07-11 12:12] LABS: FREE T3 1.49 PG/ML (2.18-3.98); FREE T4 1.13 NG/DL (0.76-1.46)
--- NOTE | 2016-07-11 13:28 | HHI.HP ---
[facility] Service Critical Care Medicine Primary Care Physician Unknown Admission Diagnosis sepsis. Hypokalemia. Renal insufficiency. Hyperthyroidism Diagnosis: (1) Acute encephalopathy Diagnosis: Principal (2) Lactic acidemia Diagnosis: Principal (3) Sepsis Diagnosis: Principal (4) Pneumonia Diagnosis: Principal (5) Pulmonary edema Diagnosis: Principal (6) Cellulitis of finger of left hand Diagnosis: Principal (7) Probable osteomyelitis L middle finger Diagnosis: Principal (8) Hypokalemia Diagnosis: Principal (9) Rhabdomyolysis Diagnosis: Principal (10) Chronic back pain Diagnosis: Secondary (11) GERD (gastroesophageal reflux disease) Diagnosis: Secondary (12) Hypothyroidism Diagnosis: Secondary (13) Hyperlipidemia Diagnosis: Secondary (14) Hypertension Diagnosis: Secondary Chief Complaint: Acute mental status change Sepsis Travel History International Travel<30 Days: No Contact w/Intl Traveler <30 Da: No Traveled to Known Affected Are: No Sepsis Criteria SIRS Criteria (2 or more): Heart rate over 90, RR > 20 or PaCO2 < 32 Severe Sepsis (+one): Lactate >2 History of Present Illness 61-year-old female with history of hypertension, high cholesterol, hypothyroidism, GERD, morphine pump for chronic back pain brought in by EMS for altered mental status. Patient's mother called EMS this morning because patient was pacing around at her place ( I'm unable to reach the mother to confirm this). Apparently was cooperative in the beginning and then became combative on the way to the ED. No known psychiatric history, but takes trazodone and Seroquel. Recently placed on clindamycin for a left middle finger cellulitis. Lab work showed initially a lactate of 11.8 but repeat was only 2.2. White count was normal potassium was 3 creatinine was 1.5. TSH was normal CK was elevated at 1160. Chest x-ray and CT of the chest showed pulmonary edema. CT brain did not show any acute findings. Hr Director admission requested for probable sepsis with acute encephalopathy. On my evaluation patient is agitated intermittently. She is able to tell her name and also tell me that she is in a hospital. Left middle finger appears red and swollen. Broad spectrum antibiotics will be given with vanc, Zosyn and Levaquin. ID consulted. Suspicion of meningitis or encephalitis is low given no neck stiffness, no fever now and normal WBC count Review of Systems ROS Limitations: Altered Mental Status Past Family Social History Allergies: Coded Allergies: Bactrim (Verified Allergy, Severe, 06/11/16) Codeine (Verified Allergy, Severe, NAUSEA, 06/11/16) Flexeril (Verified Allergy, Severe, 06/11/16) Paxil (Verified Allergy, Severe, 06/11/16) MRI PRECAUTION (Verified Adverse Reaction, Severe, IMPLANTED MORPHINE PUMP -ABD-JA-06/02/09, 06/11/16) Past Medical History High cholesterol Hypertension GERD h/o Thyroid cancer Hypothyroidism Sleep apnea (uses oxygen at night) COPD Arthritis Anxiety Depression Chronic back pain on Morphine pump Past Surgical History Thyroidectomy Surgery for acid reflux (Probably fundoplication) Cholecystectomy Morphine pump placement in L abdomen Tubal ligation Reported Medications Aspir-81 (Aspirin) 81 Mg Tabdr 1 Tab PO HS Zyrtec-D Allergy/Congestion 12 HR (Cetirizine-Pseudoephedrine 12 HR) 5-120 Mg Tab 1 Tab PO HS Gabapentin 300 Mg Cap 300 Mg PO BID Ibuprofen 600 Mg Tab 600 Mg PO Q8HR PRN Levothyroxine (Levothyroxine Sodium) 200 Mcg Tab 200 Mcg PO DAILY Magnesium Citrate 125 Mg Cap 250 Mg PO DAILY PRN Morphine IR (Morphine Sulfate) 15 Mg Tab 15 Mg INTRACATH Q1HR NEB PRN Zofran (Ondansetron HCl) 4 Mg Tab 4 Mg SL Q6HR PRN Percocet (Oxycodone-Acetaminophen) 10-325 mg Tab 1 Tab PO Q6H PRN Seroquel (Quetiapine Fumarate) 300 Mg Tab 300 Mg PO DAILY Trazodone (Trazodone HCl) 100 Mg Tab 200 Mg PO HS Prednisone 20 Mg Tab 20 Mg PO BID 5 Days Clindamycin (Clindamycin HCl) 300 Mg Cap 300 Mg PO Q6H 10 Days Active Ordered Medications Reviewed Family History Maternal grandmother at 72 of possible [place]. Father of colon cancer in his 70s. Social History Unable to obtain history from patient but previous history and physical indicates no alcohol or tobacco use Physical Exam Vital Signs Vital Signs Date Time Temp Pulse Resp B/P Pulse Ox O2 Delivery O2 Flow Rate FiO2 07/11/16 12:46 161/99 96 07/11/16 11:54 101 167/101 96 Room Air 07/11/16 09:06 98 07/11/16 09:06 165/88 07/11/16 08:49 100.0 101 21 165/88 Physical Exam GENERAL: Well-nourished, well-developed patient. Lying in bed, intermittently agitated SKIN: Warm, dry. HEAD: Normocephalic. EYES: No scleral icterus. No injection or drainage. Pupils 2 mm equal reactive. NECK: Supple, trachea midline. No JVD or lymphadenopathy. No neck stiffness CARDIOVASCULAR: Regular rate and rhythm without murmurs, gallops, or rubs. RESPIRATORY: Breath sounds equal bilaterally. No accessory muscle use. No wheezes or crackles GASTROINTESTINAL: Abdomen soft, non-tender, nondistended. MUSCULOSKELETAL: No cyanosis, or edema. L middle finger red and swollen. BACK: Nontender without obvious deformity. No CVA tenderness. NEURO: Patient's agitated uncooperative. Able to tell her name and that she is in hospital. Moves all extremities well. No obvious focal neurological deficit. Laboratory Laboratory Tests Test 07/11/16 07/11/16 07/11/16 09:15 11:05 11:37 White Blood Count 9.0 Red Blood Count 3.77 Hemoglobin 11.4 Hematocrit 34.1 Mean Corpuscular Volume 90.4 Mean Corpuscular Hemoglobin 30.4 Mean Corpuscular Hemoglobin 33.6 Concent Red Cell Distribution Width 14.5 Platelet Count 226 Mean Platelet Volume 8.3 Neutrophils (%) (Auto) 71.9 Lymphocytes (%) (Auto) 18.6 Monocytes (%) (Auto) 9.0 Eosinophils (%) (Auto) 0.0 Basophils (%) (Auto) 0.5 Neutrophils # (Auto) 6.4 Lymphocytes # (Auto) 1.7 Monocytes # (Auto) 0.8 Eosinophils # (Auto) 0.0 Basophils # (Auto) 0.0 CBC Comment DIFF FINAL Differential Comment Prothrombin Time 11.4 Prothromb Time International 1.0 Ratio Activated Partial 24.6 Thromboplast Time Urine Color YELLOW Urine Turbidity CLEAR Urine pH 8.0 Urine Specific [place] 1.015 Urine Protein 30 Urine Glucose (UA) NEG Urine Ketones 80 Urine Occult Blood SMALL Urine Nitrite NEG Urine Bilirubin NEG Urine Urobilinogen LESS THAN 2.0 Urine Leukocyte Esterase NEG Urine Squamous Epithelial <1 Cells Microscopic Urinalysis Comment CULT NOT INDICATED Sodium Level 141 Potassium Level 3.0 Chloride Level 103 Carbon Dioxide Level 17.1 Anion Gap 21 Blood Urea Nitrogen 11 Creatinine 1.51 Estimat Glomerular Filtration 35 Rate Random Glucose 139 Lactic Acid Level 11.8 2.2 Calcium Level 9.1 Total Bilirubin 0.5 Aspartate Amino Transf 44 (AST/SGOT) Alanine Aminotransferase 17 (ALT/SGPT) Alkaline Phosphatase 73 Total Protein 8.7 Albumin 3.5 Thyroid Stimulating Hormone 0.010 3rd Gen Salicylates Level 1.8 Urine Opiates Screen POS Acetaminophen Level LESS THAN 2.0 Urine Barbiturates Screen NEG Urine Amphetamines Screen NEG Urine Benzodiazepines Screen NEG Urine Cocaine Screen NEG Urine Cannabinoids Screen NEG Ethyl Alcohol Level LESS THAN 3 Blood Gas Puncture Site RT RADIAL Blood Gas Patient Temperature 98.6 Blood Gas HCO3 25 Blood Gas Base Excess 1.2 Blood Gas Oxygen Saturation 93 Arterial Blood pH 7.42 Arterial Blood Partial 40 Pressure CO2 Arterial Blood Partial 71 Pressure O2 Arterial Blood Oxygen Content 13.0 Arterial Blood 1.2 Carboxyhemoglobin Arterial Blood Methemoglobin 0.5 Blood Gas Hemoglobin 10.0 Oxygen Delivery Device BiPAP Blood Gas Inspired Oxygen 21 Free Thyroxine 1.13 Free Triiodothyronine (T3) 1.49 pg/dL Date/Time Procedure Status Source Growth 07/11/16 09:30 Aerobic Blood Culture Received Blood Peripheral Pending 07/11/16 09:30 Anaerobic Blood Culture Received Blood Peripheral Pending Result Diagram: 07/11/1691407/11/1615 Imaging CXR -pulmonary edema Septic Shock Reassessment Heart: Regular rate and rhythm Lungs: Clear Skin: Warm, Dry Peripheral Pulses: Bounding Right Radial Bounding Left Radial Assessment and Plan Assessment and Plan NEURO: Acute metabolic encephalopathy/agitated delirium Depression -CT of the head is negative, delirium seems to be secondary to metabolic encephalopathy -Patient does take Seroquel and trazodone, history in the chart states only psych history of depression -Continue Precedex for sedation -Neurology consult, EEG ordered RESP: Pulmonary edema Probable atypical pneumonia Obstructive sleep apnea -Nasal cannula oxygen -DuoNeb every 6 hours scheduled and when necessary -CT chest shows pulmonary edema, clinically appears noncardiogenic CV: Lactic acidemia -Normal saline IV fluids 5 L bolus and 125 ml per hour -Trend lactic acid -Clinically patient appears dehydrated and not in cardiogenic pulmonary edema -2D Echo. cardiac enzymes GI: -Nothing by mouth until mental status improves. Protonix for GI prophylaxis : Acute on Chronic kidney disease -Monitor renal function closely. Carney catheter. Aggressive hydration as above ID: Severe sepsis Probable atypical pneumonia Left middle finger cellulitis rule out osteomyelitis -Placed on vancomycin Zosyn and Levaquin -Check left hand x-ray May need MRI -Infectious diseases consulted HEME: -Monitor CBC, CMP, coags ENDO: Hypokalemia -Electrolyte replacement per protocol PROPH: -Bilateral lower extremity SCDs. Hold chemical DVT prophylaxis for 24 hours in case patient needs lumbar puncture LINES: -Utilize peripheral IVs, central line if needed CC time 50 min Code Status Full Discussed Condition With Dr Sloan Problem Qualifiers (1) Sepsis: Qualified Code: A41.9 - Sepsis, due to unspecified organism (2) Pneumonia: (3) Pulmonary edema: Qualified Code: J81.0 - Acute pulmonary edema Robe Londono MD Jul 11, 2016 13:28
[2016-07-11] MEDS ORDERED: SODIUM CHLOR 0.9% 1000 ML INJ 2,000 ML IV ONE (13:30)
[2016-07-11] MEDS: DEXMEDETOMIDINE INJ 200 MCG in SODIUM CHLORIDE 0.9% INJ 50 ML IV SCH ×3 (13:35→20:00)
[2016-07-11] MEDS: LEVOFLOXACIN 750 MG PREMIX INJ 150 ML IV SCH (13:35)
[2016-07-11] MEDS ORDERED: PIPERACIL-TAZO 3.375 GM PREMIX 50 ML IV SCH (14:00)
[2016-07-11] MEDS ORDERED: POTASSIUM PHOSPHATE MONOBASIC 500 MG TAB PO/TUBE PRN (14:15)
[2016-07-11] MEDS ORDERED: MAGNESIUM OXIDE 400 MG TAB PO PRN (14:15)
[2016-07-11] MEDS ORDERED: POTASSIUM PHOSPHATE MONOBASIC 500 MG TAB PO PRN (14:15)
[2016-07-11] MEDS ORDERED: MAGNESIUM SULFATE INJ 2 GM in SODIUM CHLORIDE 0.9% INJ 96 ML IV PRN (14:15)
[2016-07-11] MEDS ORDERED: POTASSIUM CHLOR 20 MEQ PREMIX 100 ML IV PRN (14:15)
[2016-07-11] MEDS ORDERED: MAGNESIUM SULFATE INJ 4 GM in SODIUM CHLORIDE 0.9% INJ 92 ML IV PRN (14:15)
[2016-07-11] MEDS ORDERED: SODIUM PHOSPHATE INJ 30 MMOL in SODIUM CHLOR 0.9% 250 ML INJ 240 ML IV PRN (14:15)
[2016-07-11] MEDS ORDERED: Vancomycin Consult Pharmacy 1 EA OTHER SCH (14:15)
[2016-07-11] MEDS ORDERED: POTASSIUM CHLOR 40 MEQ PREMIX 100 ML IV PRN ×2 (14:15)
--- NOTE | 2016-07-11 15:06 | RADRPT ---
EXAM DATE/TIME: 07/11/2016 14:36 [facility] COMPARISON: No previous studies available for comparison. INDICATIONS : Inflammation of left 3rd digit. MEDICAL HISTORY : None. SURGICAL HISTORY : None. ENCOUNTER: Initial ACUITY: 1 day PAIN SCORE: Non-responsive. LOCATION: Left Hand FINDINGS: The bony structures are grossly intact. There is moderate osteoarthritis at the third DIP joint. Ther e is some soft tissue swelling. No acute fracture or joint dislocation is seen. There is some mild de generative changes involving the fourth and fifth DIP joints. No foreign bodies are demonstrated. CONCLUSION: Moderate primary osteoarthritis involving in the third DIP joint. Porfirio Barrera MD on July 11, 2016 at 15:02 Board Certified Radiologist. This report was verified electronically.
[2016-07-11 16:01] LABS: MAGNESIUM 2.2 MG/DL (1.5-2.5)
[2016-07-11] MEDS: SODIUM CHLOR 0.9% 1000 ML INJ 1,000 ML IV SCH ×2 (16:22→23:22)
[2016-07-11] MEDS: PIPERACIL-TAZO 3.375 GM PREMIX 50 ML IV SCH ×2 (16:22→23:22)
--- NOTE | 2016-07-11 17:55 | PD.ID.CON ---
History of Present Illness Service ID Consult Requested By Reason for Consult Evaluation and Mment of Sepsis, cellulitis left 3rd index finger. Primary Care Physician Unknown Diagnoses: History of Present Illness Most of the history was from review of medical records. No family could be reached. Only niece number on file. Asked RN and handicrafts teacher to get patients mom' s number. is a 61 y/o CF with h/o HTN, high cholesterol, hypothyroidism, GERD, morphine pump intrathecal for chronic back pain brought in by EMS for altered mental status. Patient's mother called EMS this morning because patient was pacing around at her place. This remains to be confirmed as Mom cannot be reached. Apparently was cooperative in the beginning and then became combative on the way to the ED. No known psychiatric history, but takes trazodone and Seroquel. Patient is on a lot of medications that can affect mentation including pain medication pump. Concern for polypharmacy. Recently placed on clindamycin for a left middle finger cellulitis. Also patient on prednisone unknown duration and indication. Lab work showed initially a lactate of 11.8 but repeat was only 2.2. White count was normal potassium was 3 creatinine was 1.5. TSH was normal CK was elevated at 1160. Chest x-ray and CT of the chest showed pulmonary edema. CT brain did not show any acute findings Patient admitted to the ICU for probable sepsis with acute encephalopathy. Sepsis workup initiated and patient started on broad spectrum antibiotics with IV vanc, Zosyn IV and Levaquin. ID consulted for probable sepsis, left finger cellulitis. At the time of my evaluation, patient is in [facility] on precedex drip, s/p 5L IVF boluses for lactic acid 11.8 on admission. UO good, not on pressors. No fevers other than low grade 100.8 on admission. WBC ok. Review of Systems ROS Limitations: Altered Mental Status (on precedex) Past Family Social History Allergies: Coded Allergies: Bactrim (Verified Allergy, Severe, 06/11/16) Codeine (Verified Allergy, Severe, NAUSEA, 06/11/16) Flexeril (Verified Allergy, Severe, 06/11/16) Paxil (Verified Allergy, Severe, 06/11/16) MRI PRECAUTION (Verified Adverse Reaction, Severe, IMPLANTED MORPHINE PUMP -ABD-JA-06/02/09, 06/11/16) Past Medical History High cholesterol Hypertension GERD h/o Thyroid cancer Hypothyroidism Sleep apnea (uses oxygen at night) COPD Arthritis Anxiety Depression Chronic back pain on Morphine pump Past Surgical History Thyroidectomy Surgery for acid reflux (Probably fundoplication) Cholecystectomy Morphine pump placement in L abdomen Tubal ligation Reported Medications Reported Meds & Active Scripts Active Prednisone 20 Mg Tab 20 Mg PO BID 5 Days Clindamycin (Clindamycin HCl) 300 Mg Cap 300 Mg PO Q6H 10 Days Reported Aspir-81 (Aspirin) 81 Mg Tabdr 1 Tab PO HS Zyrtec-D Allergy/Congestion 12 HR (Cetirizine-Pseudoephedrine 12 HR) 5-120 Mg Tab 1 Tab PO HS Gabapentin 300 Mg Cap 300 Mg PO BID Ibuprofen 600 Mg Tab 600 Mg PO Q8HR PRN Levothyroxine (Levothyroxine Sodium) 200 Mcg Tab 200 Mcg PO DAILY Magnesium Citrate 125 Mg Cap 250 Mg PO DAILY PRN Morphine IR (Morphine Sulfate) 15 Mg Tab 15 Mg INTRACATH Q1HR NEB PRN Zofran (Ondansetron HCl) 4 Mg Tab 4 Mg SL Q6HR PRN Percocet (Oxycodone-Acetaminophen) 10-325 mg Tab 1 Tab PO Q6H PRN Seroquel (Quetiapine Fumarate) 300 Mg Tab 300 Mg PO DAILY Trazodone (Trazodone HCl) 100 Mg Tab 200 Mg PO HS Active Ordered Medications Current Medications Medications (Trade) Dose Ordered Sig/Obdulia Route Start Time Stop Time Status Last Admin Aspirin 81 mg 81 mg HS PO 07/11/16 21:00 (NS 1000 ml Inj) 1,000 ml @ 150 mls/hr Q6H40M IV 07/11/16 10:59 07/11/16 16:22 (NS Flush) 2 ml BID IV FLUSH 07/11/16 21:00 (Tylenol) 650 mg Q6H PRN PO 07/11/16 11:00 (Protonix Inj) 40 mg DAILY IV 07/12/16 09:00 Miscellaneous Information 1 Q361D XX 07/11/16 11:00 (Chlorhexidine 2% Cloth) 3 pack Taper DAILY@04 TOP 07/12/16 04:00 07/08/17 03:59 Chlorhexidine Gluconate 3 pack 3 pack UNSCH PRN TOP 07/11/16 11:00 Levofloxacin/ Dextrose 150 ml @ 100 mls/hr Q24H IV 07/11/16 13:00 07/11/16 13:35 Piperacillin Sod/ Tazobactam Sod 50 ml @ 100 mls/hr Q6H IV 07/11/16 17:00 07/11/16 16:22 Dexmedetomidine HCl 200 mcg/ Sodium Chloride 52 ml @ 0 mls/hr TITRATE IV 07/11/16 14:00 07/11/16 16:22 Potassium Chloride 100 ml @ 50 mls/hr Q2H PRN IV 07/11/16 14:15 Potassium Chloride 100 ml @ 50 mls/hr Q2H PRN IV 07/11/16 14:15 Potassium Chloride 100 ml @ 25 mls/hr UNSCH PRN IV 07/11/16 14:15 Potassium Chloride 100 ml @ 50 mls/hr Q2H PRN IV 07/11/16 14:15 (Magnesium Sulfate Inj/NS Inj) 100 ml @ 50 mls/hr UNSCH PRN IV 07/11/16 14:15 Magnesium Oxide 800 mg 800 mg UNSCH PRN PO 07/11/16 14:15 (Magnesium Sulfate Inj/NS Inj) 100 ml @ 50 mls/hr UNSCH PRN IV 07/11/16 14:15 Potassium Phosphate 2000 mg 2,000 mg Q4H PRN PO 07/11/16 14:15 (Sodium Phosphate Inj/NS 250 ml Inj) 250 ml @ 42 mls/hr UNSCH PRN IV 07/11/16 14:15 Potassium Phosphate 2000 mg 2,000 mg UNSCH PRN PO/TUBE 07/11/16 14:15 Potassium Phosphate 30 mmol/ Sodium Chloride 260 ml @ 42 mls/hr UNSCH PRN IV 07/11/16 14:15 Pharmacy Profile Note 0 ml @ 0 mls/hr UNSCH OTHER 07/11/16 14:15 (Vancomycin Inj/ NS 250 ml Inj) 262.5 ml @ 250 mls/hr Q24H IV 07/12/16 10:00 Miscellaneous Information SPECIFIC LAB TO BE [facility]... ONCE ONCE .XX 07/14/16 09:45 07/14/16 09:46 Family History could not be obtained. Social History could not be obtained. Lives with her mother. Physical Exam Vital Signs Vital Signs Date Time Temp Pulse Resp B/P Pulse Ox O2 Delivery O2 Flow Rate FiO2 07/11/16 16:00 77 07/11/16 16:00 98.6 77 13 157/79 95 07/11/16 15:09 94 Nasal Cannula 2.00 07/11/16 15:00 101 07/11/16 13:00 98.9 100 32 158/72 92 07/11/16 12:46 161/99 96 07/11/16 11:54 101 167/101 96 Room Air 07/11/16 09:06 98 07/11/16 09:06 165/88 07/11/16 08:49 100.0 101 21 165/88 Physical Exam GENERAL: Obese CF patient, in no apparent distress. SKIN: No rashes, ecchymoses or lesions. Cool and dry. HEAD: Atraumatic. Normocephalic. No temporal or scalp tenderness. EYES: Pupils equal round and reactive. Extraocular motions intact. No scleral icterus. No injection or drainage. ENT: Nose without bleeding, purulent drainage or septal hematoma. Throat without erythema, tonsillar hypertrophy or exudate. Uvula midline. Airway patent. NECK: Trachea midline. Supple, nontender, no neck stiffness. Pain on flexion of neck but complains of pain when touched in most joints and body parts. CARDIOVASCULAR: RRR RESPIRATORY: Clear to auscultation. Breath sounds equal bilaterally. GASTROINTESTINAL: Abdomen soft, non-tender, nondistended. Morphine pump site with no e/o infection. MUSCULOSKELETAL: Bilateral LE with no edema or joint swelling. Left 3rd finger with swelling, erythema, mild warmth can be flexed. NEUROLOGICAL: Awake and alert. Grossly non focal. Psych: on Precedex appears calm and cooperative now. IV line sites with no e.o infection. Laboratory Laboratory Tests Test 07/11/16 07/11/16 07/11/16 07/11/16 09:15 11:05 11:37 16:46 White Blood Count 9.0 Red Blood Count 3.77 Hemoglobin 11.4 Hematocrit 34.1 Mean Corpuscular Volume 90.4 Mean Corpuscular Hemoglobin 30.4 Mean Corpuscular Hemoglobin 33.6 Concent Red Cell Distribution Width 14.5 Platelet Count 226 Mean Platelet Volume 8.3 Neutrophils (%) (Auto) 71.9 Lymphocytes (%) (Auto) 18.6 Monocytes (%) (Auto) 9.0 Eosinophils (%) (Auto) 0.0 Basophils (%) (Auto) 0.5 Neutrophils # (Auto) 6.4 Lymphocytes # (Auto) 1.7 Monocytes # (Auto) 0.8 Eosinophils # (Auto) 0.0 Basophils # (Auto) 0.0 CBC Comment DIFF FINAL Differential Comment Prothrombin Time 11.4 Prothromb Time International 1.0 Ratio Activated Partial 24.6 Thromboplast Time Urine Color YELLOW Urine Turbidity CLEAR Urine pH 8.0 Urine Specific [place] 1.015 Urine Protein 30 Urine Glucose (UA) NEG Urine Ketones 80 Urine Occult Blood SMALL Urine Nitrite NEG Urine Bilirubin NEG Urine Urobilinogen LESS THAN 2.0 Urine Leukocyte Esterase NEG Urine Squamous Epithelial <1 Cells Microscopic Urinalysis Comment CULT NOT INDICATED Sodium Level 141 Potassium Level 3.0 Chloride Level 103 Carbon Dioxide Level 17.1 Anion Gap 21 Blood Urea Nitrogen 11 Creatinine 1.51 Estimat Glomerular Filtration 35 Rate Random Glucose 139 Lactic Acid Level 11.8 2.2 0.7 Calcium Level 9.1 Total Bilirubin 0.5 Aspartate Amino Transf 44 (AST/SGOT) Alanine Aminotransferase 17 (ALT/SGPT) Alkaline Phosphatase 73 Total Protein 8.7 Albumin 3.5 Thyroid Stimulating Hormone 0.010 3rd Gen Salicylates Level 1.8 Urine Opiates Screen POS Acetaminophen Level LESS THAN 2.0 Urine Barbiturates Screen NEG Urine Amphetamines Screen NEG Urine Benzodiazepines Screen NEG Urine Cocaine Screen NEG Urine Cannabinoids Screen NEG Ethyl Alcohol Level LESS THAN 3 Blood Gas Puncture Site RT RADIAL Blood Gas Patient Temperature 98.6 Blood Gas HCO3 25 Blood Gas Base Excess 1.2 Blood Gas Oxygen Saturation 93 Arterial Blood pH 7.42 Arterial Blood Partial 40 Pressure CO2 Arterial Blood Partial 71 Pressure O2 Arterial Blood Oxygen Content 13.0 Arterial Blood 1.2 Carboxyhemoglobin Arterial Blood Methemoglobin 0.5 Blood Gas Hemoglobin 10.0 Oxygen Delivery Device BiPAP Blood Gas Inspired Oxygen 21 Phosphorus Level 1.5 Magnesium Level 2.2 Total Creatine Kinase 1160 Creatine Kinase MB 16.0 Creatine Kinase MB % 1.4 Troponin I 0.04 Free Thyroxine 1.13 Free Triiodothyronine (T3) 1.49 pg/dL Date/Time Procedure Status Source Growth 07/11/16 13:48 Legionella Antigen Received Urine Catheterized Urine Pending 07/11/16 13:48 Streptococcus pneumoniae Antigen (M Received Urine Catheterized Urine Pending 07/11/16 13:48 Influenza Types A,B Antigen (JOSE) - Final Complete Nasal Washing NEGATIVE FOR FLU A AND B ANTIGEN.... 07/11/16 09:30 Aerobic Blood Culture Received Blood Peripheral Pending 07/11/16 09:30 Anaerobic Blood Culture Received Blood Peripheral Pending Result Diagram: 07/11/1615 07/11/1615 Imaging Last Impressions Chest CT 07/11/16 1115 Signed Impressions: Service Date/Time: Monday, July 11, 2016 11:21 - CONCLUSION: No evidence of infection. Findings consistent with congestive heart failure and pulmonary edema. This is a new finding as compared to the prior CT. Richa Luna MD Abdomen/Pelvis CT 07/11/16 1115 Signed Impressions: Service Date/Time: Monday, July 11, 2016 11:21 - CONCLUSION: No evidence of inflammatory process within the abdomen or pelvis. Stable areas of renal cortical thinning consistent with prior infection and scar. Stable diverticulosis. Richa Luna MD Head CT 07/11/16 0858 Signed Impressions: Service Date/Time: Monday, July 11, 2016 09:27 - CONCLUSION: Normal examination. Richa Luna MD Chest X-Ray 07/11/16 0858 Signed Impressions: Service Date/Time: Monday, July 11, 2016 09:43 - CONCLUSION: Abnormal exam with findings suggestive of either noncardiogenic pulmonary edema versus volume overload. Richa Luna MD Hand X-Ray 07/11/16 0000 Signed Impressions: Service Date/Time: Monday, July 11, 2016 14:36 - CONCLUSION: Moderate primary osteoarthritis involving in the third DIP joint. Porfirio Barrera MD Assessment and Plan Assessment and Plan Possible Sepsis (fever, tachycardia, elevated lactic acid on admission) with acute encephalopathy Left 3rd finger cellulitis. Aspiration risk Acute metabolic encephalopathy: polypharmacy, ? overdose, sepsis. Elevated lactic acid: prerenal, sepsis, cardiac (ECHO pending) Intrathecal morphine pump at risk for meningitis. Recs: At present clinical picture c/w cellulitis and pain med related change in mentation Will try to contact mother again in am to assess if pump recently manipulated and details prior to presentation. Continue Levaquin IV Continue Vanco IV (target 10-15 for cellulitis) Continue Zosyn IV Follow urine output and Cr on Zosyn IV and Vanco IV combo. Follow mentation. Will follow along with you Bakari Arias agree low risk of meningitis. Dodiew RN and handicrafts teacher to get Mothers contact number. Amanda Ryder MD Jul 11, 2016 17:55
[2016-07-11] MEDS: ASPIRIN EC 81 MG TABEC PO SCH (20:00)
[2016-07-11] MEDS: SODIUM CHLORIDE 0.9% FLUSH 10 ML FLUSH IV FLUSH SCH (20:03)
--- NOTE | 2016-07-11 21:01 | MB ---
cc: SEBAS WIGGINS MD DATE OF CONSULTATION 07/11/16 DATE OF 55 REASON FOR CONSULTATION Acute encephalopathy. HISTORY OF PRESENT ILLNESS History is taken from the chart. The patient is a 61-year-old woman with a history of hypertension, hyperlipidemia, reflux, hypothyroidism, chronic back pain on a morphine pump brought in by EMS for altered mental status. Apparently, her mother called EMS. The patient was pacing, not acting appropriately. Unfortunately, staff can no longer reach the mother. There is no history of psychiatric disease, but the patient is on Seroquel and trazodone, recently on clindamycin for left middle finger cellulitis. Initial lactate was 11.8 when she came in, repeat was only 2.2. Neurology is asked to evaluate her for acute encephalopathy. Currently, she is on Precedex and relaxed in no acute distress. ALLERGIES BACTRIM CODEINE FLEXERIL PAXIL. MRI PRECAUTIONS DUE TO THE IMPLANTABLE MORPHINE PUMP. PAST MEDICAL HISTORY As stated 1. Hypothyroidism, 2. Thyroid cancer, 3. Sleep apnea MEDICATIONS At home, 1. Baby aspirin 2. Zyrtec D 3. Gabapentin 4. Ibuprofen 5. Levothyroxine 6. Magnesium 7. Morphine IR 8. Zofran. 9. Percocet 10. Seroquel, 11. Trazodone 12. Prednisone 13. Clindamycin. FAMILY HISTORY [place] and colon cancer. SOCIAL HISTORY Unable to obtain. PHYSICAL EXAMINATION VITAL SIGNS: Currently temperature is 100 axillary, respiratory rate 21, blood pressure 161/99, satting at 94% 2 liters nasal cannula. Pulse is 101. HEENT: Pupils are reactive. Face looks symmetrical. NEUROLOGIC: She withdraws to pain is non verbal currently. Toes downgoing. Does not follow due to sedation any other part of the Exam. LABORATORY DATA Reviewed. Hemoglobin is 11.4. Coag panel is normal. Chemistries as stated current lactic acid 2.2. Electrolytes are pending. CKs 1160. TSH 0.10. T3 1.4 9, T4 1.13. Urine - small blood. Toxicology positive for opiates. IMAGING STUDIES Abdomen pelvis CT stable. Areas of renal cortical thinning with prior infection and scar. No evidence of any inflammatory process. Chest CT consistent with congestive heart failure, pulmonary edema. HEAD CT normal exam. IMPRESSION A 61-year-old woman with what appears to be an acute metabolic encephalopathy, possible delirium. We will go ahead and get an EEG. Continue her Precedex. Continue care per the stave cutter. 2-D echo due to possible cardiopulmonary tissues.. Concerning that pain pump is filled at this time or is there an issue with it. Could this have been something of a withdrawal. At this point this is unknown. Recommend continuation of current care. We will go ahead and order the EEG. If CT is negative, I will hold off on doing an MRI unless indicated. MD DAISY Ching/ /3:58 PM /8:50 PM
[2016-07-11] MEDS: CHLORHEXIDINE GLUCONATE 2 % 1 PACK (2 CLOTHS) TOP SCH (23:22)
[2016-07-12] VITALS (12 sets, daily range): BP systolic 152–173; BP diastolic 79–94; PULSE 48–111; RESP 12–32; TEMP 98–98.6; O2SAT 94–98
[2016-07-12] MEDS: DEXMEDETOMIDINE INJ 200 MCG in SODIUM CHLORIDE 0.9% INJ 50 ML IV SCH ×2 (01:24→04:47)
[2016-07-12] MEDS: PIPERACIL-TAZO 3.375 GM PREMIX 50 ML IV SCH ×4 (03:16→21:35)
[2016-07-12 03:40] LABS: AUTOMATED NEUTROPHIL # 4.3 TH/MM3 (1.8-7.7); BASOPHIL % 0.4 % (0.0-2.0); EOSINOPHIL # 0.1 TH/MM3 (0-0.4); EOSINOPHIL % 1.2 % (0.0-4.0); HEMATOCRIT 30.2 % (35.0-46.0); HEMO FLAGS DIFF FINAL; LYMPH % 22.4 % (9.0-44.0); LYMPHOCYTE # 1.5 TH/MM3 (1.0-4.8); MEAN CELL VOLUME 89.5 FL (80.0-100.0); MEAN CORPUSCULAR HEMOGLOBIN 30.1 PG (27.0-34.0); MEAN CORPUSCULAR HGB CONC 33.6 % (32.0-36.0); MONO % 10.8 % (0.0-8.0); NEUT % 65.2 % (16.0-70.0); PLATELET COUNT 155 TH/MM3 (150-450); RED BLOOD COUNT 3.38 MIL/MM3 (4.00-5.30); RED CELL DISTRIBUTION WIDTH 14.7 % (11.6-17.2); WHITE BLOOD COUNT 6.7 TH/MM3 (4.0-11.0)
[2016-07-12] MEDS: RESP: ALBUTEROL 2.5 MG/IPRATROPIUM 0.5 MG NEB (SCH) INH ×4 (04:00→22:00)
[2016-07-12 04:07] LABS: ALKALINE PHOSPHATASE 54 U/L (45-117); ALT (GPT) 17 U/L (10-53); ANION GAP 10 MEQ/L (5-15); AST (GOT) 43 U/L (15-37); BICARBONATE 24.2 MEQ/L (21.0-32.0); BLOOD UREA NITROGEN 7 MG/DL (7-18); CHLORIDE 114 MEQ/L (98-107); CREATINE KINASE 1302 U/L (26-192); GLOMERULAR FILTRATION RATE 64 ML/MIN (>89); MAGNESIUM 2.1 MG/DL (1.5-2.5); SODIUM (NA) 148 MEQ/L (136-145); TOTAL BILIRUBIN ADULT 0.5 MG/DL (0.2-1.0)
[2016-07-12 04:27] LABS: CKMB 10.6 NG/ML (0.5-3.6)
[2016-07-12] MEDS: POTASSIUM PHOSPHATE INJ 30 MMOL in SODIUM CHLOR 0.9% 250 ML INJ 250 ML IV PRN ×2 (04:48→21:35)
--- NOTE | 2016-07-12 06:36 | RADRPT ---
EXAM DATE/TIME: 07/12/2016 05:27 [facility] COMPARISON: CHEST SINGLE AP, July 11, 2016, 9:43. INDICATIONS : Shortness of breath, possible pulmonary disease. MEDICAL HISTORY : Carcinoma, thyroid. Cardiovascular disease. SURGICAL HISTORY : Cholecystectomy. ENCOUNTER: Subsequent ACUITY: 2 days PAIN SCORE: Non-responsive. LOCATION: Bilateral chest FINDINGS: The heart size is normal. There is mild diffuse proximal of the interstitium. No focal alveolar conso lidation is seen. The costophrenic angles are clear. CONCLUSION: Prominence of the interstitium which could represent some mild edema. Bry Garrett MD on July 12, 2016 at 6:34 Board Certified Radiologist. This report was verified electronically.
[2016-07-12] MEDS: SODIUM CHLOR 0.9% 1000 ML INJ 1,000 ML IV SCH (06:59)
--- NOTE | 2016-07-12 07:58 | PD.TRANSFR ---
Transfer Summary Admission Date Jul 11, 2016 at 11:03 Admitting Diagnosis sepsis. Hypokalemia. Renal insufficiency. Hyperthyroidism Diagnoses: (1) Acute encephalopathy Diagnosis: Principal (2) Lactic acidemia Diagnosis: Principal (3) Sepsis Diagnosis: Principal (4) Pneumonia Diagnosis: Principal (5) Pulmonary edema Diagnosis: Principal (6) Cellulitis of finger of left hand Diagnosis: Principal (7) Probable osteomyelitis L middle finger Diagnosis: Principal (8) Hypokalemia Diagnosis: Principal (9) Rhabdomyolysis Diagnosis: Principal (10) Chronic back pain Diagnosis: Secondary (11) GERD (gastroesophageal reflux disease) Diagnosis: Secondary (12) Hypothyroidism Diagnosis: Secondary (13) Hyperlipidemia Diagnosis: Secondary (14) Hypertension Diagnosis: Secondary Transfer Summary/Subjective 61-year-old female with history of hypertension, high cholesterol, hypothyroidism, GERD, morphine pump for chronic back pain brought in by EMS for altered mental status. Patient's mother called EMS this morning because patient was pacing around at her place ( I'm unable to reach the mother to confirm this). Apparently was cooperative in the beginning and then became combative on the way to the ED. No known psychiatric history, but takes trazodone and Seroquel. Recently placed on clindamycin for a left middle finger cellulitis. Lab work showed initially a lactate of 11.8 but repeat was only 2.2. White count was normal potassium was 3 creatinine was 1.5. TSH was normal CK was elevated at 1160. Chest x-ray and CT of the chest showed pulmonary edema. CT brain did not show any acute findings. Learning Support Specialist admission requested for probable sepsis with acute encephalopathy. On my evaluation patient is agitated intermittently. She is able to tell her name and also tell me that she is in a hospital. Left middle finger appears red and swollen. Broad spectrum antibiotics will be given with vanc, Zosyn and Levaquin. ID consulted. Suspicion of meningitis or encephalitis is low given no neck stiffness, no fever now and normal WBC count SUBJ: 07/12-hemodynamically stable neurological exam much improved. Patient is alert awake oriented to person and place, did not remember the date. Patient stated that she has very poor memory. Urine output is adequate CPK remains elevated at 1300. Cultures all pending at this time. Chest x-ray shows improving infiltrates Objective Vital Signs Date Time Temp Pulse Resp B/P Pulse Ox O2 Delivery O2 Flow Rate FiO2 07/12/16 06:00 48 07/12/16 04:00 98.2 14 172/92 97 07/11/16 21:00 Nasal Cannula 4.00 Intake and Output 07/11/16 07/11/16 07/12/16 08:00 16:00 00:00 Intake Total 5000 ml 2823 ml Output Total 1500 ml 901 ml Balance 3500 ml 1922 ml Result Diagram: 07/12/16 0319 07/12/16 0319 Other Results Microbiology Date/Time Procedure Status Source Growth 07/11/16 13:48 Influenza Types A,B Antigen (JOSE) - Final Complete Nasal Washing NEGATIVE FOR FLU A AND B ANTIGEN.... Laboratory Tests Test 07/11/16 11:05 Blood Gas Puncture Site RT RADIAL Blood Gas Patient Temperature 98.6 Blood Gas HCO3 25 mmol/L (22-26) Blood Gas Base Excess 1.2 mmol/L (-2-2) Blood Gas Oxygen Saturation 93 % (90-100) Arterial Blood pH 7.42 (7.380-7.420) Arterial Blood Partial 40 mmHg (38-42) Pressure CO2 Arterial Blood Partial 71 mmHG Pressure O2 (61-120) Arterial Blood Oxygen Content 13.0 Vol % (12.0-20.0) Arterial Blood 1.2 % (0-4) Carboxyhemoglobin Arterial Blood Methemoglobin 0.5 % (0-2) Blood Gas Hemoglobin 10.0 G/DL (12.0-16.0) Oxygen Delivery Device BiPAP Blood Gas Inspired Oxygen 21 % Imaging CXR -pulmonary edema Objective Remarks GENERAL: Well-nourished, well-developed patient. Lying in bed, calm SKIN: Warm, dry. HEAD: Normocephalic. EYES: No scleral icterus. No injection or drainage. Pupils 2 mm equal reactive. NECK: Supple, trachea midline. No JVD or lymphadenopathy. No neck stiffness CARDIOVASCULAR: Regular rate and rhythm without murmurs, gallops, or rubs. RESPIRATORY: Breath sounds equal bilaterally. No accessory muscle use. No wheezes or crackles GASTROINTESTINAL: Abdomen soft, non-tender, nondistended. MUSCULOSKELETAL: No cyanosis, or edema. L middle finger red and swollen. BACK: Nontender without obvious deformity. No CVA tenderness. NEURO: Patient is awake alert oriented to person and place. Did not remember date. Very pleasant today follows commands Urinary Catheter: Yes Assessment to: Continue A/P Assessment and Plan NEURO: Acute metabolic encephalopathy/agitated delirium Depression -CT of the head is negative, delirium seems to be secondary to metabolic encephalopathy-now resolved -Patient does take Seroquel and trazodone, history in the chart states only psych history of depression -DC Precedex for sedation. Use PRN Ativan for agitation and morphine for breakthrough pain -Neurology consult appreciated, EEG ordered RESP: Pulmonary edema Probable atypical pneumonia Obstructive sleep apnea -Nasal cannula oxygen -DuoNeb every 6 hours scheduled and when necessary -CT chest shows pulmonary edema, clinically appears noncardiogenic -Broad-spectrum antibiotics with vancomycin and Zosyn and Levaquin -Legionella and pneumococcal antigen pending, influenza negative CV: Lactic acidemia -s/p Normal saline IV fluids 5 L bolus and and maintenance fluid at 150 ml per hour -Trend lactic acid -Clinically patient appears dehydrated and not in cardiogenic pulmonary edema -2D Echo. cardiac enzymes GI: -Start regular diet, discontinue Protonix : Acute on Chronic kidney disease Rhabdomyolysis -Monitor renal function closely. Carney catheter. Aggressive hydration as above -Check serial CPKs ID: Severe sepsis Probable atypical pneumonia Left middle finger cellulitis -Placed on vancomycin Zosyn and Levaquin -Left hand x-ray -moderate osteoarthritis -Infectious diseases -Dr Ryder HEME: -Monitor CBC, CMP, coags ENDO: Hypokalemia -Electrolyte replacement per protocol PROPH: -Bilateral lower extremity SCDs. Start Lovnox 40 mg sq daily. Dc protonix LINES: -Utilize peripheral IVs, central line if needed Level 3 OOB. Transferred to [facility]. Hospitalist consulted to assume care in Robe Conteh MD Jul 12, 2016 07:58
[2016-07-12] MEDS: ENOXAPARIN SODIUM 40 MG/0.4 ML SYRINGE SQ SCH (08:25)
[2016-07-12] MEDS: LORazepam 2 MG/ML VIAL IV PUSH PRN ×4 (08:25→21:53)
[2016-07-12] MEDS: 1/2 NS + KCL 20 MEQ INJ 1,000 ML IV SCH ×3 (08:25→23:15)
[2016-07-12] MEDS: SODIUM CHLORIDE 0.9% FLUSH 10 ML FLUSH IV FLUSH SCH ×2 (08:25→20:11)
[2016-07-12] MEDS ORDERED: PANTOPRAZOLE SODIUM 40 MG VIAL IV SCH (09:00)
[2016-07-12] MEDS: VANCOMYCIN INJ 1,250 MG in SODIUM CHLOR 0.9% 250 ML INJ 250 ML IV SCH (10:26)
[2016-07-12] MEDS: LEVOFLOXACIN 750 MG PREMIX INJ 150 ML IV SCH (12:39)
[2016-07-12] MEDS: MORPHINE SULFATE 4 MG/ML INJ IV PUSH PRN ×2 (16:46→20:10)
[2016-07-12] MEDS ORDERED: LORazepam 2 MG/ML VIAL IV ONE (18:00)
[2016-07-12] MEDS: ASPIRIN EC 81 MG TABEC PO SCH (20:10)
[2016-07-12 20:56] LABS: POTASSIUM 2.9 MEQ/L (3.5-5.1)
--- NOTE | 2016-07-12 22:01 | EC ---
Study Study Date:07/12/2016 STUDY CONCLUSIONS SUMMARY - Left ventricle: The cavity size was normal. Wall thickness was normal. Systolic function was normal. The estimated ejection fraction was in the range of 50% to 55%. Wall motion was normal; there were no regional wall motion abnormalities. - Aortic valve: Valve area: 2.92cm^2 (Vmax). - Mitral valve: Mild regurgitation. - Tricuspid valve: Mild regurgitation. - Pulmonary arteries: PA peak pressure: 34mm Hg (S). If LV function is below 40, please consider prescribing an ACEI or ARB or document rationale for non-use. PROCEDURE DATA STUDY STATUS: Elective. Procedure: Transthoracic echocardiography. Image quality was good. Scanning was performed from the parasternal, apical, and subcostal acoustic windows. Study completion: The patient tolerated the procedure well. Transthoracic echocardiography. M-mode, complete 2D, complete spectral Doppler, and color Doppler. Height: Height: 67in. Weight: Weight: 179.6lb. Body mass index: BMI: 28.2kg/m^2. Body surface area: BSA: 1.93m^2. Patient status: Inpatient. CARDIAC ANATOMY LEFT VENTRICLE: The cavity size was normal. Wall thickness was normal. Systolic function was normal. The estimated ejection fraction was in the range of 50% to 55%. Wall motion was normal; there were no regional wall motion abnormalities. AORTIC VALVE: Trileaflet; normal thickness leaflets. Doppler: Transvalvular velocity was within the normal range. There was no stenosis. No regurgitation. Valve area: 2.92cm^2 (Vmax). Indexed valve area: 1.51cm^2/m^2 (Vmax). Peak gradient: 10mm Hg (S). AORTA: Aortic root: The aortic root was normal in size. MITRAL VALVE: Structurally normal valve. Doppler: Transvalvular velocity was within the normal range. There was no evidence for stenosis. Mild regurgitation. Peak gradient: 5mm Hg (D). LEFT ATRIUM: The atrium was normal in size. RIGHT VENTRICLE: The cavity size was normal. Wall thickness was normal. PULMONIC VALVE: Doppler: Transvalvular velocity was within the normal range. There was no evidence for stenosis. No regurgitation. TRICUSPID VALVE: Structurally normal valve. Doppler: Transvalvular velocity was within the normal range. Mild regurgitation. PULMONARY ARTERY: The main pulmonary artery was normal-sized. Systolic pressure was within the normal range. RIGHT ATRIUM: The atrium was normal in size. PERICARDIUM: There was no pericardial effusion. SYSTEMIC VEINS: Inferior vena cava: The vessel was normal in size. Patient weight: 179.6lb _Ejection fraction:_ 65-75% _Fractional shortening:_ 32% up to 5Kg 5-11.5Kg 11.6-22.9Kg 23-45Kg 45-57Kg Aortic Root 7-13 <17 13-22 17-27 17-27 LA diam 6-13 <23 24-38 33-47 37-40 RVID 10-17 7-15 7-15 7-18 8-17 LVIDd 12-22 <32 24-38 33-47 37-40 LVPW 2-4 3-6 5-7 6-8 7-8 IVS 2-4 3-6 5-7 6-8 7-8 BASIC MEASUREMENTS ADULT NORMAL Left ventricle LV internal dimension, ED, chordal *37.1 mm 43-52 level, PLAX LV internal dimension, ES, chordal 28.5 mm 23-38 level, PLAX Fractional shortening, chordal level, *23 % >29 PLAX LV posterior wall thickness, ED 8.49 mm IVS/LVPW ratio, ED 0.97 <1.3 Ventricular septum Septal thickness, ED 8.2 mm Aortic valve Leaflet separation 20 mm 15-26 BASIC MEASUREMENTS ADULT NORMAL Aortic valve Leaflet separation 20 mm 15-26 Aorta Root diameter, ED 28 mm 20-37 Left atrium Anterior-posterior dimension, ES 38 mm 19-40 Anterior-posterior dimension index, ES 1.97 cm/m^2 <2.2 LA/aortic root ratio 1.36 DOPPLER MEASUREMENTS ADULT NORMAL Main pulmonary artery Pressure, S *34 mm Hg =30 Aortic valve Peak velocity, S 160 cm/s Peak gradient, S 10 mm Hg Valve area, Vmax 2.92 cm^2 Valve area index, Vmax 1.51 cm^2/m^2 Mitral valve Peak E-wave velocity 111 cm/s Peak A-wave velocity 111 cm/s Deceleration time 165 ms 150-230 Peak gradient, D 5 mm Hg Peak E/A ratio 1 Maximal regurgitant velocity 561 cm/s Tricuspid valve Regurgitant peak velocity 277 cm/s Peak RV-RA gradient, S 31 mm Hg Maximal regurgitant velocity 277 cm/s Systemic veins Estimated CVP 10 mm Hg Right ventricle RV pressure, S *41 mm Hg <30 Pulmonic valve Peak velocity, S 128 cm/s LEGEND: Mean values are shown as u=mean value. Asterisk (*) vernon values outside specified normal range. Prepared and signed by Korey Eric [id number]
[2016-07-12] MEDS ORDERED: traZODone HCL 100 MG TAB PO SCH (22:50)
[2016-07-12] MEDS: QUEtiapine FUMARATE 300 MG TAB PO ONE (23:30)
[2016-07-12] MEDS ORDERED: SODIUM CHLORIDE 0.65% NASAL SPRAY 45 ML BTL NASAL PRN (23:45)
[2016-07-12] MEDS: QUEtiapine FUMARATE 300 MG TAB PO SCH (23:46)
[2016-07-13] VITALS (8 sets, daily range): BP systolic 126–163; BP diastolic 63–89; PULSE 73–106; RESP 11–25; TEMP 98–99.4; O2SAT 95–100
[2016-07-13] MEDS: CHLORHEXIDINE GLUCONATE 2 % 1 PACK (2 CLOTHS) TOP SCH (04:00)
[2016-07-13] MEDS: RESP: ALBUTEROL 2.5 MG/IPRATROPIUM 0.5 MG NEB (SCH) INH ×4 (04:00→21:00)
[2016-07-13] MEDS: 1/2 NS + KCL 20 MEQ INJ 1,000 ML IV SCH ×2 (04:22→12:43)
[2016-07-13] MEDS: PIPERACIL-TAZO 3.375 GM PREMIX 50 ML IV SCH ×2 (04:22→11:08)
[2016-07-13 06:24] LABS: BICARBONATE 23.4 MEQ/L (21.0-32.0); CALCIUM-PROTEIN CORRECTED 7.6 MG/DL (8.5-10.1); TOTAL BILIRUBIN ADULT 0.6 MG/DL (0.2-1.0)
[2016-07-13 06:27] LABS: POTASSIUM 2.8 MEQ/L (3.5-5.1)
[2016-07-13] MEDS: POTASSIUM CHLOR 20 MEQ PREMIX 100 ML IV PRN ×4 (06:36→13:26)
--- NOTE | 2016-07-13 07:57 | MG ---
cc: SEBAS WIGGINS M.D., SINOJ K. MD Lab No: [id number] Date: 07/13/2016 Age: 61 Sex: F Hyperventilation and photic omitted. Awake. Patient agitated during the study. CT is normal. EEG in 2003 was normal. This is a 61-year-old woman with change in mental status, combative, on a morphine pump for chronic back pain. History of thyroid cancer, thyroidectomy, chronic back pain, depression, hyperlipidemia, migraines. On Zosyn, Protonix and other medications. DESCRIPTION OF RECORD The EKG looks artifactual. She is moving a lot. There were some PLEDs at the beginning portion at epoch 69. As the EEG progressed there may have been also some sharp waves seen. IMPRESSION Abnormal EEG due to what looks like BI-PLEDs as well as some sharp wave activity bilaterally, may be focus of seizures in this patient. Clinical correlation. MD DAISY Ching/MICHAEL /7:39 AM /7:50 AM
[2016-07-13] MEDS: SODIUM CHLORIDE 0.9% FLUSH 10 ML FLUSH IV FLUSH SCH ×2 (09:00→21:00)
[2016-07-13] MEDS: ENOXAPARIN SODIUM 40 MG/0.4 ML SYRINGE SQ SCH (09:03)
[2016-07-13] MEDS: QUEtiapine FUMARATE 300 MG TAB PO SCH (09:03)
[2016-07-13] MEDS: VANCOMYCIN INJ 1,250 MG in SODIUM CHLOR 0.9% 250 ML INJ 250 ML IV SCH (09:04)
--- NOTE | 2016-07-13 10:01 | HHI.PR ---
Subjective Remarks alert today eeg abnl repeat today.No mri has pain pump follows with Dr Cunningham. Objective Vital Signs Date Time Temp Pulse Resp B/P Pulse Ox O2 Delivery O2 Flow Rate FiO2 07/13/16 08:00 98.6 74 11 129/63 95 07/13/16 08:00 74 07/13/16 07:00 97 Nasal Cannula 4.00 07/13/16 04:00 98.0 77 11 129/66 99 07/13/16 04:00 77 07/13/16 00:00 98.6 90 12 163/80 100 07/13/16 00:00 90 07/12/16 20:00 98.4 99 32 170/94 96 07/12/16 20:00 99 07/12/16 19:00 96 Nasal Cannula 4.00 07/12/16 18:00 95 07/12/16 16:00 98.6 111 22 157/79 94 07/12/16 16:00 106 07/12/16 14:00 88 07/12/16 12:00 98.0 91 21 173/86 97 07/12/16 12:00 91 07/12/16 10:00 77 I/O 07/12/16 07/12/16 07/12/16 07/13/16 07/13/16 07/13/16 07:00 15:00 23:00 07:00 15:00 23:00 Intake Total 1146 ml 1861 ml 1470 ml 1310 ml Output Total 750 ml 1125 ml 1300 ml 750 ml Balance 396 ml 736 ml 170 ml 560 ml Intake Oral 50 ml 720 ml 480 ml 240 ml IV Total 1096 ml 1141 ml 990 ml 1070 ml Output Urine Total 750 ml 1125 ml 1300 ml 750 ml # Bowel Movements 9 5 1 awake and alert follows perrla motor grossly normal eeg pleds and sharps-repeat today echo pending Result Diagram: 07/12/16 0319 07/13/16 0531 Assessment and Plan Assessment and Plan encephalopathy improved abnormal eeg -ff/u eeg today if still abnl will add AED continue current medical care. Bruna Roy MD Jul 13, 2016 10:01
[2016-07-13] MEDS: LORazepam 2 MG/ML VIAL IV PUSH PRN ×2 (10:32→23:42)
--- NOTE | 2016-07-13 12:53 | HHI.IDPN ---
Subjective Subjective Remarks is a 61 y/o CF with h/o HTN, high cholesterol, hypothyroidism, GERD, morphine pump intrathecal for chronic back pain brought in by EMS for altered mental status. Patient's mother called EMS this morning because patient was pacing around at her place. This remains to be confirmed as Mom cannot be reached. Apparently was cooperative in the beginning and then became combative on the way to the ED. No known psychiatric history, but takes trazodone and Seroquel. Patient is on a lot of medications that can affect mentation including pain medication pump. Concern for polypharmacy. Recently placed on clindamycin for a left middle finger cellulitis. Also patient on prednisone unknown duration and indication. Lab work showed initially a lactate of 11.8 but repeat was only 2.2. White count was normal potassium was 3 creatinine was 1.5. TSH was normal CK was elevated at 1160. Chest x-ray and CT of the chest showed pulmonary edema. CT brain did not show any acute findings. ID following for left middle finger cellulitis. Overnight events reviewed. No fever No rash No diarrhea More alert. EEG with ? seizure. Antibiotics Zosyn IV Vanco IV Levaquin IV Lines Line sites with no e.o infection Past Medical History reviewed Allergies: Coded Allergies: Bactrim (Verified Allergy, Severe, 06/11/16) Codeine (Verified Allergy, Severe, NAUSEA, 06/11/16) Flexeril (Verified Allergy, Severe, 06/11/16) Paxil (Verified Allergy, Severe, 06/11/16) MRI PRECAUTION (Verified Adverse Reaction, Severe, IMPLANTED MORPHINE PUMP -ABD-JA-06/02/09, 06/11/16) Objective . Vital Signs Date Time Temp Pulse Resp B/P Pulse Ox O2 Delivery O2 Flow Rate FiO2 07/13/16 10:00 99 Nasal Cannula 2.00 07/13/16 08:00 98.6 74 11 129/63 95 07/13/16 08:00 74 07/13/16 07:00 97 Nasal Cannula 4.00 07/13/16 04:00 98.0 77 11 129/66 99 07/13/16 04:00 77 07/13/16 00:00 98.6 90 12 163/80 100 07/13/16 00:00 90 07/12/16 20:00 98.4 99 32 170/94 96 07/12/16 20:00 99 07/12/16 19:00 96 Nasal Cannula 4.00 07/12/16 18:00 95 07/12/16 16:00 98.6 111 22 157/79 94 07/12/16 16:00 106 07/12/16 14:00 88 07/12/16 07/12/16 07/13/16 15:00 23:00 07:00 Intake Total 1861 ml 1470 ml 1310 ml Output Total 1125 ml 1300 ml 750 ml Balance 736 ml 170 ml 560 ml Intake Oral 720 ml 480 ml 240 ml IV Total 1141 ml 990 ml 1070 ml Output Urine Total 1125 ml 1300 ml 750 ml # Bowel Movements 9 5 1 . Laboratory Tests Test 07/12/16 03:19 White Blood Count 6.7 TH/MM3 Red Blood Count 3.38 MIL/MM3 Hemoglobin 10.2 GM/DL Hematocrit 30.2 % Mean Corpuscular Volume 89.5 FL Mean Corpuscular Hemoglobin 30.1 PG Mean Corpuscular Hemoglobin 33.6 % Concent Red Cell Distribution Width 14.7 % Platelet Count 155 TH/MM3 Mean Platelet Volume 7.8 FL Neutrophils (%) (Auto) 65.2 % Lymphocytes (%) (Auto) 22.4 % Monocytes (%) (Auto) 10.8 % Eosinophils (%) (Auto) 1.2 % Basophils (%) (Auto) 0.4 % Neutrophils # (Auto) 4.3 TH/MM3 Lymphocytes # (Auto) 1.5 TH/MM3 Monocytes # (Auto) 0.7 TH/MM3 Eosinophils # (Auto) 0.1 TH/MM3 Basophils # (Auto) 0.0 TH/MM3 CBC Comment DIFF FINAL Differential Comment Laboratory Tests Test 07/11/16 07/12/16 07/12/16 07/13/16 16:46 03:19 19:14 05:31 Lactic Acid Level 0.7 mmol/L Sodium Level 148 MEQ/L 142 MEQ/L Potassium Level 3.0 MEQ/L 2.9 MEQ/L 2.8 MEQ/L Chloride Level 114 MEQ/L 108 MEQ/L Carbon Dioxide Level 24.2 MEQ/L 23.4 MEQ/L Anion Gap 10 MEQ/L 11 MEQ/L Blood Urea Nitrogen 7 MG/DL 4 MG/DL Creatinine 0.89 MG/DL 0.78 MG/DL Estimat Glomerular Filtration 64 ML/MIN 75 ML/MIN Rate Random Glucose 112 MG/DL 74 MG/DL Calcium Level 7.5 MG/DL 7.2 MG/DL Magnesium Level 2.1 MG/DL Total Bilirubin 0.5 MG/DL 0.6 MG/DL Aspartate Amino Transf 43 U/L 47 U/L (AST/SGOT) Alanine Aminotransferase 17 U/L 23 U/L (ALT/SGPT) Alkaline Phosphatase 54 U/L 49 U/L Total Creatine Kinase 1302 U/L Creatine Kinase MB 10.6 NG/ML Creatine Kinase MB % 0.8 % Total Protein 6.7 GM/DL 6.3 GM/DL Albumin 2.7 GM/DL 2.5 GM/DL Phosphorus Level 2.4 MG/DL Protein Corrected Calcium 7.6 MG/DL Microbiology Date/Time Procedure Status Source Growth 07/11/16 09:15 Aerobic Blood Culture - Preliminary Resulted Blood Peripheral NO GROWTH IN 2 DAYS 07/11/16 09:15 Anaerobic Blood Culture - Preliminary Resulted Blood Peripheral NO GROWTH IN 2 DAYS 07/11/16 09:30 Aerobic Blood Culture - Preliminary Resulted Blood Peripheral NO GROWTH IN 2 DAYS 07/11/16 09:30 Anaerobic Blood Culture - Preliminary Resulted Blood Peripheral NO GROWTH IN 2 DAYS 07/11/16 13:48 Influenza Types A,B Antigen (JOSE) - Final Complete Nasal Washing NEGATIVE FOR FLU A AND B ANTIGEN.... 07/11/16 13:48 Legionella Antigen - Final Complete Urine Catheterized Urine PRESUMPTIVE NEGATIVE FOR LEGIONELLA P... 07/11/16 13:48 Streptococcus pneumoniae Antigen (M - Final Complete Urine Catheterized Urine PRESUMPTIVE NEGATIVE FOR STREPTOCOCCU... Imaging Last Impressions Chest X-Ray 07/12/16 0600 Signed Impressions: Service Date/Time: Tuesday, July 12, 2016 05:27 - CONCLUSION: Prominence of the interstitium which could represent some mild edema. Bry Garrett MD Chest CT 07/11/16 1115 Signed Impressions: Service Date/Time: Monday, July 11, 2016 11:21 - CONCLUSION: No evidence of infection. Findings consistent with congestive heart failure and pulmonary edema. This is a new finding as compared to the prior CT. Richa Luna MD Abdomen/Pelvis CT 07/11/16 1115 Signed Impressions: Service Date/Time: Monday, July 11, 2016 11:21 - CONCLUSION: No evidence of inflammatory process within the abdomen or pelvis. Stable areas of renal cortical thinning consistent with prior infection and scar. Stable diverticulosis. Richa Luna MD Head CT 07/11/16 0858 Signed Impressions: Service Date/Time: Monday, July 11, 2016 09:27 - CONCLUSION: Normal examination. Richa Luna MD Hand X-Ray 07/11/16 0000 Signed Impressions: Service Date/Time: Monday, July 11, 2016 14:36 - CONCLUSION: Moderate primary osteoarthritis involving in the third DIP joint. Porfirio Barrera MD Physical Exam GENERAL: Obese CF patient, in no apparent distress. SKIN: No rashes, ecchymoses or lesions. Cool and dry. HEAD: Atraumatic. Normocephalic. No temporal or scalp tenderness. EYES: Pupils equal round and reactive. Extraocular motions intact. No scleral icterus. No injection or drainage. ENT: Nose without bleeding, purulent drainage or septal hematoma. Throat without erythema, tonsillar hypertrophy or exudate. Uvula midline. Airway patent. NECK: Trachea midline. Supple, nontender, no neck stiffness. Pain on flexion of neck but complains of pain when touched in most joints and body parts. CARDIOVASCULAR: RRR RESPIRATORY: Clear to auscultation. Breath sounds equal bilaterally. GASTROINTESTINAL: Abdomen soft, non-tender, nondistended. Morphine pump site with no e/o infection. MUSCULOSKELETAL: Bilateral LE with no edema or joint swelling. Left 3rd finger with swelling, erythema, mild warmth can be flexed. NEUROLOGICAL: Awake and alert. Grossly non focal. Psych: on Precedex appears calm and cooperative now. IV line sites with no e.o infection. Assessment & Plan Remarks Possible Sepsis (fever, tachycardia, elevated lactic acid on admission) with acute encephalopathy Left 3rd finger cellulitis. Aspiration risk Acute metabolic encephalopathy: polypharmacy, ? overdose, sepsis. Elevated lactic acid: prerenal, sepsis, cardiac (ECHO pending) Intrathecal morphine pump at risk for meningitis. Recs: At present clinical picture c/w cellulitis and pain med related change in mentation DC Levaquin IV Continue Vanco IV (target 10-15 for cellulitis) DC Zosyn IV Follow mentation. Follow EEG report/ D/w Dr.Rimpel to address pain med pump and polypharmacy prior to admission. Hand surgery consult: cellulitis, unable to flex finger ? tenosynovitis, partially treated with oral prior to admissions. Amanda Ryder MD Jul 13, 2016 12:53
--- NOTE | 2016-07-13 14:27 | HHI.PR ---
Subjective Remarks Patient reports that she is feeling better today. Appear somewhat groggy but she is oriented 4. She does have a morphine pump that gets refilled every 6 weeks. She cannot recall the exact date it is due for refill. She reports the left third finger has been red and swollen for a few weeks. She reports she has been on multiple antibiotics outpatient with no improvement. Objective Vitals Vital Signs Date Time Temp Pulse Resp B/P Pulse Ox O2 Delivery O2 Flow Rate FiO2 07/13/16 12:00 98.9 90 13 126/65 99 07/13/16 12:00 90 07/13/16 10:00 99 Nasal Cannula 2.00 07/13/16 08:00 98.6 74 11 129/63 95 07/13/16 08:00 74 07/13/16 07:00 97 Nasal Cannula 4.00 07/13/16 04:00 98.0 77 11 129/66 99 07/13/16 04:00 77 07/13/16 00:00 98.6 90 12 163/80 100 07/13/16 00:00 90 07/12/16 20:00 98.4 99 32 170/94 96 07/12/16 20:00 99 07/12/16 19:00 96 Nasal Cannula 4.00 07/12/16 18:00 95 07/12/16 16:00 98.6 111 22 157/79 94 07/12/16 16:00 106 I/O 07/12/16 07/12/16 07/12/16 07/13/16 07/13/16 07/13/16 07:00 15:00 23:00 07:00 15:00 23:00 Intake Total 1146 ml 1861 ml 1470 ml 1310 ml Output Total 750 ml 1125 ml 1300 ml 750 ml Balance 396 ml 736 ml 170 ml 560 ml Intake Oral 50 ml 720 ml 480 ml 240 ml IV Total 1096 ml 1141 ml 990 ml 1070 ml Output Urine Total 750 ml 1125 ml 1300 ml 750 ml # Bowel Movements 9 5 1 Result Diagram: 07/12/16 0319 07/13/16 0531 Imaging Last Impressions Chest X-Ray 07/12/16 0600 Signed Impressions: Service Date/Time: Tuesday, July 12, 2016 05:27 - CONCLUSION: Prominence of the interstitium which could represent some mild edema. Bry Garrett MD Chest CT 07/11/16 1115 Signed Impressions: Service Date/Time: Monday, July 11, 2016 11:21 - CONCLUSION: No evidence of infection. Findings consistent with congestive heart failure and pulmonary edema. This is a new finding as compared to the prior CT. Richa Luna MD Abdomen/Pelvis CT 07/11/16 1115 Signed Impressions: Service Date/Time: Monday, July 11, 2016 11:21 - CONCLUSION: No evidence of inflammatory process within the abdomen or pelvis. Stable areas of renal cortical thinning consistent with prior infection and scar. Stable diverticulosis. Richa Luna MD Head CT 07/11/16 0858 Signed Impressions: Service Date/Time: Monday, July 11, 2016 09:27 - CONCLUSION: Normal examination. Richa Luna MD Hand X-Ray 07/11/16 0000 Signed Impressions: Service Date/Time: Monday, July 11, 2016 14:36 - CONCLUSION: Moderate primary osteoarthritis involving in the third DIP joint. Porfirio Barrera MD Objective Remarks GENERAL: Patient appear older than stated age. Somewhat somnolent but oriented and able to carry a conversation. CARDIOVASCULAR: Normal rate and regular rhythm without murmurs, gallops, or rubs. RESPIRATORY: Good respiratory efforts. Breath sounds equal and clear to auscultation bilaterally. GASTROINTESTINAL: Abdomen soft, non-tender, non-distended. Normal active bowel sounds MUSCULOSKELETAL: Left third finger is erythematous and swollen. She is unable to flex at the DIP. NEURO: Alert & Oriented x4 to person, place, time, situation. Moves all ext x4 PSYCH: Somnolent A/P Problem List: (1) Acute encephalopathy ICD Code: G93.40 Status: Acute (2) Lactic acidemia ICD Code: E87.2 Status: Acute (3) Sepsis ICD Code: A41.9 Status: Acute (4) Pneumonia ICD Code: J18.9 Status: Acute (5) Pulmonary edema ICD Code: J81.1 Status: Acute (6) Cellulitis of finger of left hand ICD Code: L03.012 Status: Acute (7) Probable osteomyelitis L middle finger Status: Acute (8) Hypokalemia ICD Code: E87.6 Status: Acute (9) Rhabdomyolysis ICD Code: M62.82 Status: Acute (10) Chronic back pain ICD Code: M54.9 Status: Acute (11) GERD (gastroesophageal reflux disease) ICD Code: K21.9 Status: Acute (12) Hypothyroidism ICD Code: E03.9 Status: Acute (13) Hyperlipidemia ICD Code: E78.5 Status: Acute (14) Hypertension ICD Code: I10 Status: Acute Assessment and Plan 61-year-old female with: Acute metabolic encephalopathy/agitated delirium Depression -CT of the head is negative, delirium seems to be secondary to metabolic encephalopathy-now resolved -Patient does take Seroquel and trazodone. There is a history of depression in the chart. -Patient appeared to be too sedated. Will cut trazodone down to 100 mg. Will discuss with RN to minimize Ativan and morphine. -Neurology following. EEG is abnormal. Follow-up EEG today, if abnormal urology will consider adding antiepileptics. Severe sepsis on presentation: Left middle finger cellulitis - Placed on vancomycin. Zosyn Dced - Left hand x-ray -moderate osteoarthritis - Discussed with infectious disease. Hand surgery consulted. Concern for tenosynovitis as she has been having this infection for a few weeks without improvement. Pulmonary edema Probable atypical pneumonia Obstructive sleep apnea -Nasal cannula oxygen -DuoNeb every 6 hours scheduled and when necessary -CT chest shows pulmonary edema, clinically appears noncardiogenic - Currently on Vancomycin per ID - 2-D echocardiogram shows preserved EF. Chronic back pain: - Patient follows with pain management. She has a morphine pump. As far as she knows it is functioning. - Limit additional narcotics. If she gets too sedated, would call her pain management physician to inquire about turning the pump off. Lactic acidemia -s/p Normal saline IV fluids 5 L bolus. IV fluid at 100 cc per hour Acute on Chronic kidney disease Rhabdomyolysis -Monitor renal function closely. Carney catheter. Continue hydration as above -Check serial CPKs Hypokalemia -Electrolyte replacement per protocol PROPH: -Bilateral lower extremity SCDs. Lovenox 40 mg sq daily. Problem Qualifiers (1) Sepsis: Qualified Code: A41.9 - Sepsis, due to unspecified organism (2) Pneumonia: (3) Pulmonary edema: Qualified Code: J81.0 - Acute pulmonary edema Tayla Valdivia MD Jul 13, 2016 14:27
--- NOTE | 2016-07-13 20:53 | MG ---
cc: ABDULAZIZ MAGAÑA MD Lab No: Date: 07/13/2016 Age: Sex: F Race: EEG RECORD NUMBER [id number] DATE OF 1955 HISTORY A 61-year-old, history mental status changes. DESCRIPTION 7-8 posterior rhythm with admixed 3-5 Hz activity, left to right frequency artifact. Muscle tension artifact. Bursts 2-3 Hz delta occurring. Tiny sharp transient C3-P3 epoch 3 followed by generalized slowing. Limited driving with photic stimulation. Frontal central sharp transients epoch 62. Spindle activity appreciated as well. Tiny sharp transients C3-P3, epoch 112. Single lead EKG showing sinus rhythm. INTERPRETATION Mild encephalopathy suggestion of cortical irritability left frontal central region. No active seizures. Improved from previous EEG. Clinical correlation. Abdulaziz Magaña MD MG/KK /8:03 PM /8:39 PM
[2016-07-13] MEDS: traZODone HCL 100 MG TAB PO SCH (21:00)
[2016-07-13] MEDS: ASPIRIN EC 81 MG TABEC PO SCH (21:09)
[2016-07-13] MEDS: MORPHINE SULFATE 4 MG/ML INJ IV PUSH PRN (22:47)
[2016-07-14] VITALS (11 sets, daily range): BP systolic 130–161; BP diastolic 76–93; PULSE 73–106; RESP 12–23; TEMP 98.3–99.2; O2SAT 92–97
[2016-07-14] MEDS: CHLORHEXIDINE GLUCONATE 2 % 1 PACK (2 CLOTHS) TOP SCH (04:00)
[2016-07-14] MEDS: VANCOMYCIN INJ 1,250 MG in SODIUM CHLOR 0.9% 250 ML INJ 250 ML IV SCH ×2 (04:22→20:52)
[2016-07-14] MEDS: 1/2 NS + KCL 20 MEQ INJ 1,000 ML IV SCH (04:22)
[2016-07-14 05:51] LABS: HEMATOCRIT 28.5 % (35.0-46.0); MEAN CORPUSCULAR HEMOGLOBIN 30.2 PG (27.0-34.0); PLATELET COUNT 168 TH/MM3 (150-450); RED CELL DISTRIBUTION WIDTH 14.9 % (11.6-17.2); REVIEW FLAG FINAL; WHITE BLOOD COUNT 6.6 TH/MM3 (4.0-11.0)
[2016-07-14 06:11] LABS: BICARBONATE 22.7 MEQ/L (21.0-32.0); POTASSIUM 3.4 MEQ/L (3.5-5.1)
[2016-07-14 06:30] LABS: CKMB 4.8 NG/ML (0.5-3.6)
--- NOTE | 2016-07-14 06:45 | MB ---
cc: SARAH ELIZABETH MD DATE OF CONSULTATION 07/13/2016 REASON FOR CONSULTATION Left middle finger pain and swelling. HISTORY OF PRESENT ILLNESS Chika Manley is a 61-year-old female who presented to the emergency room on 07/11/2016 after her mother called the ambulance after she was found in an altered mental status. I was not called for evaluation until 07/13/2016. Upon my evaluation today, the patient was oriented and was able to interact and answer questions. Her mother was not present upon evaluation. The patient states that she has a history of approximately three months of swelling over the left middle finger without any known trauma. She states she had seen multiple physicians including her physician Dr. Griffin and was on clindamycin as well as other antibiotics with no significant improvement in her symptoms. The patient is currently on vancomycin. She reports no significant improvement over the past two days while being in the hospital. PAST MEDICAL HISTORY 1. Hypertension 2. Hypercholesterolemia 3. Hypothyroidism 4. Gastroesophageal reflux disease 5. Morphine pump for chronic back pain 6. Thyroid cancer 7. Sleep apnea 8. COPD PAST SURGICAL HISTORY 1. Thyroidectomy 2. Fundoplication 3. Cholecystectomy 4. Morphine pump 5. Tubal ligation MEDICATIONS 1. Aspirin 2. Zyrtec 3. Gabapentin 4. Ibuprofen 5. Levothyroxine 6. Magnesium 7. Morphine 8. Zofran 9. Percocet 10. Seroquel 11. Trazodone 12. Prednisone 13. Clindamycin SOCIAL HISTORY Denies any tobacco, alcohol or drug use. PHYSICAL EXAMINATION On exam this evening, temperature 98.6, blood pressure 147/87, pulse 73. LABORATORY DATA White count 6.7. Blood cultures and negative at this point. IMAGING STUDIES X-rays of the left hand show arthritis of the left middle finger DIP joint concern for septic arthritis. PHYSICAL EXAMINATION Exam of the left hand shows erythema from the left middle finger proximal phalanx distally. The patient is able to fire FDS and FDP without significant pain. Sensation is intact on the radial ulnar side. She does have capillary refill to the finger again with erythema both volarly and dorsally to the level of the PIP joint. No significant pain in the hand or palm. No significant pain in the index, ring or small fingers. No significant swelling over the flexor tendon sheath. No pain with passive extension of the finger. ASSESSMENT/PLAN This is a 61-year-old right-hand dominant female with per the patient approximately a 3-month history of pain and swelling over the left middle finger DIP joint which extends to the PIP joint with no significant improvement on oral antibiotics and no significant improvement on IV antibiotics. Concern for osteomyelitis of the left middle finger. I will discuss this case with Dr. Ryder of infectious disease. I will follow ESR/CRP. The patient should continue on IV antibiotics. I will consider an MRI, but do not believe that the patient is cleared for an MRI due to the morphine pump, but will discuss with the biometric fingerprinting technician. Ideally, MRI to evaluate for possible osteomyelitis. Other options discussed with the patient including continued IV antibiotics and observation versus biopsy and culture versus amputation of the left middle finger at the DIP joint. At this time, the patient stated she would not consent to amputation. She may be interested in proceeding with biopsy. Again, I will discuss the case with infectious disease. We should also find out why the patient is on prednisone and if medically stable, wean the patient off the prednisone. I will consider surgical intervention on Wednesday if the patient again is cleared from a medical standpoint. MD KWABENA Martinez/RAUL /11:28 PM /6:38 AM ANABELA
[2016-07-14] MEDS: QUEtiapine FUMARATE 300 MG TAB PO SCH (08:28)
[2016-07-14] MEDS: ENOXAPARIN SODIUM 40 MG/0.4 ML SYRINGE SQ SCH (08:28)
[2016-07-14] MEDS: SODIUM CHLORIDE 0.9% FLUSH 10 ML FLUSH IV FLUSH SCH ×2 (08:29→20:53)
[2016-07-14] MEDS: RESP: ALBUTEROL 2.5 MG/IPRATROPIUM 0.5 MG NEB (SCH) INH ×3 (10:35→22:01)
[2016-07-14] MEDS: LORazepam 2 MG/ML VIAL IV PUSH PRN (11:30)
--- NOTE | 2016-07-14 13:48 | HHI.PR ---
Subjective Remarks Patient reports she is feeling okay. Anxious to get out of the ICU. No chest pain or shortness of breath. Afebrile Objective Vitals Vital Signs Date Time Temp Pulse Resp B/P Pulse Ox O2 Delivery O2 Flow Rate FiO2 07/14/16 12:00 80 07/14/16 08:00 96 Nasal Cannula 4.00 07/14/16 08:00 75 07/14/16 06:00 73 07/14/16 04:00 73 07/14/16 04:00 98.9 73 12 141/76 95 07/14/16 02:00 76 07/14/16 00:00 83 07/14/16 00:00 99.2 83 15 158/81 92 07/13/16 22:00 78 07/13/16 20:00 99.4 106 25 153/89 99 07/13/16 20:00 106 07/13/16 19:00 100 Nasal Cannula 3.00 07/13/16 16:00 98.6 73 12 147/87 98 07/13/16 16:00 73 I/O 07/13/16 07/13/16 07/13/16 07/14/16 07/14/16 07/14/16 07:00 15:00 23:00 07:00 15:00 23:00 Intake Total 1310 ml 2012 ml 857 ml 700 ml Output Total 750 ml 1300 ml 1200 ml 950 ml Balance 560 ml 712 ml -343 ml -250 ml Intake Oral 240 ml 200 ml IV Total 1070 ml 1812 ml 857 ml 700 ml Output Urine Total 750 ml 1300 ml 1200 ml 950 ml # Bowel Movements 1 1 1 Result Diagram: 07/14/16 0526 07/14/16 05 Objective Remarks GENERAL: Patient appear older than stated age. CARDIOVASCULAR: Normal rate and regular rhythm without murmurs, gallops, or rubs. RESPIRATORY: Good respiratory efforts. Breath sounds equal and clear to auscultation bilaterally. GASTROINTESTINAL: Abdomen soft, non-tender, non-distended. Normal active bowel sounds MUSCULOSKELETAL: Left third finger is erythematous and swollen. She is unable to flex at the DIP. NEURO: Alert & Oriented x4 to person, place, time, situation. Moves all ext x4 PSYCH: Somnolent A/P Problem List: (1) Acute encephalopathy ICD Code: G93.40 Status: Acute (2) Lactic acidemia ICD Code: E87.2 Status: Acute (3) Sepsis ICD Code: A41.9 Status: Acute (4) Pneumonia ICD Code: J18.9 Status: Acute (5) Pulmonary edema ICD Code: J81.1 Status: Acute (6) Cellulitis of finger of left hand ICD Code: L03.012 Status: Acute (7) Probable osteomyelitis L middle finger Status: Acute (8) Hypokalemia ICD Code: E87.6 Status: Acute (9) Rhabdomyolysis ICD Code: M62.82 Status: Acute (10) Chronic back pain ICD Code: M54.9 Status: Acute (11) GERD (gastroesophageal reflux disease) ICD Code: K21.9 Status: Acute (12) Hypothyroidism ICD Code: E03.9 Status: Acute (13) Hyperlipidemia ICD Code: E78.5 Status: Acute (14) Hypertension ICD Code: I10 Status: Acute Assessment and Plan 61-year-old female with: Acute metabolic encephalopathy/agitated delirium Depression -CT of the head is negative, delirium seems to be secondary to metabolic encephalopathy-now resolved -Patient does take Seroquel and trazodone. There is a history of depression in the chart. -Patient appeared to be too sedated. Trazodone was decreased to 100 mg. Discussed with RN to minimize Ativan and morphine. -Neurology following. EEG is abnormal. Follow-up EEG improved. No seizure activities. Severe sepsis on presentation: Left middle finger cellulitis - Placed on vancomycin. Zosyn Dced - Left hand x-ray -moderate osteoarthritis - Discussed with infectious disease. Hand surgery following, considering surgical intervention. - Patient is currently not on any steroids. Apparently she was given a 5 day supply of prednisone when she presented to the emergency room on June 11 for pain in the finger Pulmonary edema Probable atypical pneumonia Obstructive sleep apnea -Nasal cannula oxygen -DuoNeb every 6 hours scheduled and when necessary -CT chest shows pulmonary edema, clinically appears noncardiogenic - Currently on Vancomycin per ID - 2-D echocardiogram shows preserved EF. Chronic back pain: - Patient follows with pain management. She has a morphine pump. As far as she knows it is functioning. - Limit additional narcotics. If she gets too sedated, would call her pain management physician to inquire about turning the pump off. Lactic acidemia -s/p Normal saline IV fluids 5 L bolus. Acute on Chronic kidney disease Rhabdomyolysis -Monitor renal function closely. Carney catheter. Continue hydration as above -Rhabdomyolysis improving with IV fluid. Hypokalemia -Electrolyte replacement per protocol PROPH: -Bilateral lower extremity SCDs. Lovenox 40 mg sq daily. Discharge Planning Stable for transfer to floor. Consult PT Problem Qualifiers (1) Sepsis: Qualified Code: A41.9 - Sepsis, due to unspecified organism (2) Pneumonia: (3) Pulmonary edema: Qualified Code: J81.0 - Acute pulmonary edema Tayla Valdivia MD Jul 14, 2016 13:47
[2016-07-14] MEDS: POTASSIUM CHLOR 20 MEQ PREMIX 100 ML IV PRN (15:21)
[2016-07-14] MEDS ORDERED: PHARMACY ORDERED LAB ONE (20:45)
[2016-07-14] MEDS: traZODone HCL 100 MG TAB PO SCH (20:53)
[2016-07-14] MEDS: ASPIRIN EC 81 MG TABEC PO SCH (20:53)
[2016-07-15] VITALS: BP 158/86; PULSE 110; RESP 20; TEMP 99.5; O2SAT 96
[2016-07-15] MEDS: RESP: ALBUTEROL 2.5 MG/IPRATROPIUM 0.5 MG NEB (SCH) INH (04:00)
[2016-07-15] MEDS: CHLORHEXIDINE GLUCONATE 2 % 1 PACK (2 CLOTHS) TOP SCH ×2 (04:00→21:41)
[2016-07-15] MEDS: MORPHINE SULFATE 4 MG/ML INJ IV PUSH PRN ×3 (04:14→23:24)
[2016-07-15 08:00] VITALS: BP 144/67; PULSE 100; RESP 16; TEMP 98.9; O2SAT 96
[2016-07-15] MEDS: QUEtiapine FUMARATE 300 MG TAB PO SCH (08:44)
[2016-07-15] MEDS: ENOXAPARIN SODIUM 40 MG/0.4 ML SYRINGE SQ SCH (08:44)
[2016-07-15] MEDS: SODIUM CHLORIDE 0.9% FLUSH 10 ML FLUSH IV FLUSH SCH ×2 (08:44→21:00)
--- NOTE | 2016-07-15 10:20 | HHI.PR ---
Subjective Remarks Patient reports she is feeling better. She would like to take Seroquel at night instead of the morning. Afebrile. Finger swelling and erythema is unchanged. Objective Vitals Vital Signs Date Time Temp Pulse Resp B/P Pulse Ox O2 Delivery O2 Flow Rate FiO2 07/15/16 08:00 98.9 100 16 144/67 96 07/15/16 04:19 18 07/15/16 00:00 99.5 110 20 158/86 96 07/14/16 22:02 97 21 07/14/16 22:00 106 07/14/16 20:00 98.9 101 23 161/78 94 07/14/16 20:00 101 07/14/16 19:00 96 Nasal Cannula 3.00 07/14/16 19:00 96 Nasal Cannula 3.00 07/14/16 16:00 98.5 100 14 157/85 97 07/14/16 12:00 98.3 79 15 148/80 93 07/14/16 12:00 80 I/O 07/14/16 07/14/16 07/14/16 07/15/16 07/15/16 07/15/16 07:00 15:00 23:00 07:00 15:00 23:00 Intake Total 700 ml 972 ml 490 ml 240 ml Output Total 950 ml 1023 ml 1600 ml 450 ml Balance -250 ml -51 ml -1110 ml -210 ml Intake Oral 240 ml 240 ml IV Total 700 ml 972 ml 250 ml Output Urine Total 950 ml 1023 ml 1600 ml 450 ml # Bowel Movements 2 2 Result Diagram: 07/14/16 0526 07/14/16 05 Objective Remarks GENERAL: Patient appear older than stated age. CARDIOVASCULAR: Normal rate and regular rhythm without murmurs, gallops, or rubs. RESPIRATORY: Good respiratory efforts. Breath sounds equal and clear to auscultation bilaterally. GASTROINTESTINAL: Abdomen soft, non-tender, non-distended. Normal active bowel sounds MUSCULOSKELETAL: Left third finger is erythematous and swollen. She is unable to flex at the DIP. NEURO: Alert & Oriented x4 to person, place, time, situation. Moves all ext x4 PSYCH: Calm A/P Problem List: (1) Acute encephalopathy ICD Code: G93.40 Status: Acute (2) Lactic acidemia ICD Code: E87.2 Status: Acute (3) Sepsis ICD Code: A41.9 Status: Acute (4) Pneumonia ICD Code: J18.9 Status: Acute (5) Pulmonary edema ICD Code: J81.1 Status: Acute (6) Cellulitis of finger of left hand ICD Code: L03.012 Status: Acute (7) Probable osteomyelitis L middle finger Status: Acute (8) Hypokalemia ICD Code: E87.6 Status: Acute (9) Rhabdomyolysis ICD Code: M62.82 Status: Acute (10) Chronic back pain ICD Code: M54.9 Status: Acute (11) GERD (gastroesophageal reflux disease) ICD Code: K21.9 Status: Acute (12) Hypothyroidism ICD Code: E03.9 Status: Acute (13) Hyperlipidemia ICD Code: E78.5 Status: Acute (14) Hypertension ICD Code: I10 Status: Acute Assessment and Plan 61-year-old female with: Acute metabolic encephalopathy/agitated delirium: Resolved Depression -CT of the head is negative, delirium seems to be secondary to metabolic encephalopathy-now resolved -Patient does take Seroquel and trazodone. There is a history of depression in the chart. -Trazodone was decreased to 100 mg. -Neurology following. EEG is abnormal. Follow-up EEG improved. No seizure activities. Severe sepsis on presentation: Left middle finger cellulitis - Placed on vancomycin. Zosyn Dced - Left hand x-ray -moderate osteoarthritis. Unable to get MRI due to morphine pump - Discussed with infectious disease. Hand surgery following, considering surgical intervention. - Patient is currently not on any steroids. Apparently she was given a 5 day supply of prednisone when she presented to the emergency room on June 11 for pain in the finger Pulmonary edema: Resolved Probable atypical pneumonia Obstructive sleep apnea -Nasal cannula oxygen -DuoNeb every 6 hours scheduled and when necessary -CT chest shows pulmonary edema, clinically appears noncardiogenic - Currently on Vancomycin per ID - 2-D echocardiogram shows preserved EF. Chronic back pain: - Patient follows with pain management. She has a morphine pump. As far as she knows it is functioning. - Limit additional narcotics. If she gets too sedated, would call her pain management physician to inquire about turning the pump off. Lactic acidemia -s/p Normal saline IV fluids 5 L bolus. Acute on Chronic kidney disease Rhabdomyolysis -Monitor renal function closely. Carney catheter. Continue hydration as above -Rhabdomyolysis improving with IV fluid. Hypokalemia -Electrolyte replacement per protocol PROPH: -Bilateral lower extremity SCDs. Lovenox 40 mg sq daily. Discharge Planning Continue IV antibiotics. Hand surgery and ID following. PT consulted Problem Qualifiers (1) Sepsis: Qualified Code: A41.9 - Sepsis, due to unspecified organism (2) Pneumonia: (3) Pulmonary edema: Qualified Code: J81.0 - Acute pulmonary edema Tayla Valdivia MD Jul 15, 2016 10:20
[2016-07-15] MEDS: CETIRIZINE HCL 10 MG TAB PO SCH (10:41)
[2016-07-15 12:00] VITALS: BP 142/76; PULSE 98; RESP 18; TEMP 97.1; O2SAT 96
[2016-07-15 12:46] VITALS: O2SAT 96
[2016-07-15 13:23] LABS: HEMATOCRIT 31.7 % (35.0-46.0); MEAN CELL VOLUME 89.6 FL (80.0-100.0); MEAN CORPUSCULAR HEMOGLOBIN 29.4 PG (27.0-34.0); MEAN CORPUSCULAR HGB CONC 32.8 % (32.0-36.0); PLATELET COUNT 177 TH/MM3 (150-450); RED BLOOD COUNT 3.54 MIL/MM3 (4.00-5.30); RED CELL DISTRIBUTION WIDTH 14.9 % (11.6-17.2); REVIEW FLAG FINAL; WHITE BLOOD COUNT 11.8 TH/MM3 (4.0-11.0)
[2016-07-15 14:18] LABS: BICARBONATE 22.5 MEQ/L (21.0-32.0); POTASSIUM 3.4 MEQ/L (3.5-5.1)
[2016-07-15] MEDS ORDERED: PHARMACY ORDERED LAB ONE (14:45)
[2016-07-15] MEDS: VANCOMYCIN INJ 1,250 MG in SODIUM CHLOR 0.9% 250 ML INJ 250 ML IV SCH (16:10)
--- NOTE | 2016-07-15 17:14 | HHI.PR ---
Addendum to Inpatient Note Addendum Reason: Additional Documentation Additional Information d/w and : plan on bone biospy and exploration as it appears to be partially treated osteomyelitis. Will follow once cultures done in am and intra op findings available. Send Micro and path for osteomyelitis workup. Amanda Ryder MD Jul 15, 2016 17:14
[2016-07-15 20:10] VITALS: BP 155/75; PULSE 109; RESP 18; TEMP 99.7; O2SAT 94
[2016-07-15] MEDS: ASPIRIN EC 81 MG TABEC PO SCH (21:40)
[2016-07-15] MEDS: traZODone HCL 100 MG TAB PO SCH (21:40)
[2016-07-15] MEDS: ONDANSETRON HCL 4 MG/2 ML VIAL IV PRN (22:25)
[2016-07-16 00:27] VITALS: BP 121/65; PULSE 80; RESP 17; TEMP 98.9; O2SAT 96
[2016-07-16] MEDS ORDERED: METOPROLOL TARTRATE 25 MG TAB PO PRN (02:45)
[2016-07-16] MEDS: LACTATED RINGER'S 1000 ML INJ 1,000 ML IV SCH (02:45)
[2016-07-16] MEDS ORDERED: CHLORHEXIDINE GLUCONATE 2 % 1 PACK (2 CLOTHS) TOPICAL PRN (02:45)
[2016-07-16] MEDS ORDERED: POVIDONE IODINE 5% (ANTISEPSIS KIT) 4 APPLICATIONS EACH NARE PRN (02:45)
[2016-07-16 05:14] LABS: HEMATOCRIT 33.3 % (35.0-46.0); MEAN CELL VOLUME 89.6 FL (80.0-100.0); MEAN CORPUSCULAR HEMOGLOBIN 29.6 PG (27.0-34.0); MEAN CORPUSCULAR HGB CONC 33.1 % (32.0-36.0); PLATELET COUNT 187 TH/MM3 (150-450); RED BLOOD COUNT 3.72 MIL/MM3 (4.00-5.30); RED CELL DISTRIBUTION WIDTH 14.8 % (11.6-17.2); REVIEW FLAG FINAL; WHITE BLOOD COUNT 13.1 TH/MM3 (4.0-11.0)
[2016-07-16 05:34] LABS: BICARBONATE 25.8 MEQ/L (21.0-32.0); POTASSIUM 3.3 MEQ/L (3.5-5.1)
[2016-07-16] MEDS: LEVOTHYROXINE SODIUM 125 MCG TAB PO SCH (05:52)
[2016-07-16] MEDS: VANCOMYCIN INJ 1,500 MG in SODIUM CHLORID 0.9% 500 ML INJ 500 ML IV SCH (07:48)
[2016-07-16] MEDS: ENOXAPARIN SODIUM 40 MG/0.4 ML SYRINGE SQ SCH (07:48)
[2016-07-16] MEDS: CETIRIZINE HCL 10 MG TAB PO SCH (07:48)
[2016-07-16] MEDS: SODIUM CHLORIDE 0.9% FLUSH 10 ML FLUSH IV FLUSH SCH ×2 (07:49→20:07)
[2016-07-16 08:00] VITALS: BP 120/75; PULSE 90; RESP 16; TEMP 98.2; O2SAT 94
[2016-07-16] MEDS: MORPHINE SULFATE 4 MG/ML INJ IV PUSH PRN ×2 (10:52→18:21)
[2016-07-16 12:00] VITALS: BP 141/74; PULSE 79; RESP 17; TEMP 96.5; O2SAT 96
--- NOTE | 2016-07-16 14:25 | HHI.PR ---
Subjective Remarks Patient seen in follow up for sepsis, cellulitis with possible osteo on the finger She reports she is feeling ok today. Left finger swelling and erythema is unchanged. No chest pain or shortness of breath. Plan to have biopsy tomorrow with hand surgery. Objective Vitals Vital Signs Date Time Temp Pulse Resp B/P Pulse Ox O2 Delivery O2 Flow Rate FiO2 07/16/16 12:00 96.5 79 17 141/74 96 07/16/16 08:00 98.2 90 16 120/75 94 07/16/16 00:27 98.9 80 17 121/65 96 07/15/16 20:10 99.7 109 18 155/75 94 I/O 07/15/16 07/15/16 07/15/16 07/16/16 07/16/16 07/16/16 07:00 15:00 23:00 07:00 15:00 23:00 Intake Total 240 ml 240 ml 642 ml Output Total 450 ml 750 ml 400 ml 400 ml Balance -210 ml -510 ml 242 ml -400 ml Intake Oral 240 ml 240 ml 380 ml IV Total 262 ml Output Urine Total 450 ml 750 ml 400 ml 400 ml # Bowel Movements 2 0 Result Diagram: 07/16/16 0420 07/16/16 0420 Objective Remarks GENERAL: Patient appear older than stated age. CARDIOVASCULAR: Normal rate and regular rhythm without murmurs, gallops, or rubs. RESPIRATORY: Good respiratory efforts. Breath sounds equal and clear to auscultation bilaterally. GASTROINTESTINAL: Abdomen soft, non-tender, non-distended. Normal active bowel sounds MUSCULOSKELETAL: Left third finger is erythematous and swollen. She is unable to flex at the DIP. NEURO: Alert & Oriented x4 to person, place, time, situation. Moves all ext x4 PSYCH: Appropriate mood and affect. A/P Problem List: (1) Acute encephalopathy ICD Code: G93.40 Status: Acute (2) Lactic acidemia ICD Code: E87.2 Status: Acute (3) Sepsis ICD Code: A41.9 Status: Acute (4) Pneumonia ICD Code: J18.9 Status: Acute (5) Pulmonary edema ICD Code: J81.1 Status: Acute (6) Cellulitis of finger of left hand ICD Code: L03.012 Status: Acute (7) Probable osteomyelitis L middle finger Status: Acute (8) Hypokalemia ICD Code: E87.6 Status: Acute (9) Rhabdomyolysis ICD Code: M62.82 Status: Acute (10) Chronic back pain ICD Code: M54.9 Status: Acute (11) GERD (gastroesophageal reflux disease) ICD Code: K21.9 Status: Acute (12) Hypothyroidism ICD Code: E03.9 Status: Acute (13) Hyperlipidemia ICD Code: E78.5 Status: Acute (14) Hypertension ICD Code: I10 Status: Acute Assessment and Plan 61-year-old female with: Acute metabolic encephalopathy/agitated delirium: Resolved Depression -CT of the head is negative, delirium seems to be secondary to metabolic encephalopathy-now resolved -Patient does take Seroquel and trazodone. There is a history of depression in the chart. -Trazodone was decreased to 100 mg. -Neurology following. EEG is abnormal. Follow-up EEG improved. No seizure activities. Severe sepsis on presentation: Probable source, Left middle finger cellulitis - Placed on vancomycin. Zosyn Dced - Left hand x-ray -moderate osteoarthritis. Unable to get MRI due to morphine pump - Discussed with infectious disease. Hand surgery following, Planning for biopsy in AM. - Patient is currently not on any steroids. Apparently she was given a 5 day supply of prednisone when she presented to the emergency room on June 11 for pain in the finger Pulmonary edema: Resolved Probable atypical pneumonia Obstructive sleep apnea -Nasal cannula oxygen -DuoNeb every 6 hours scheduled and when necessary -CT chest shows pulmonary edema, clinically appears noncardiogenic - Currently on Vancomycin per ID - 2-D echocardiogram shows preserved EF. Chronic back pain: - Patient follows with pain management. She has a morphine pump. As far as she knows it is functioning. - Limit additional narcotics. If she gets too sedated, would call her pain management physician to inquire about turning the pump off. Lactic acidemia -s/p Normal saline IV fluids 5 L bolus. Acute on Chronic kidney disease Rhabdomyolysis -Monitor renal function closely. Carney catheter. Continue hydration as above -Rhabdomyolysis improving with IV fluid. Hypokalemia -Electrolyte replacement per protocol PROPH: -Bilateral lower extremity SCDs. Lovenox 40 mg sq daily. Discharge Planning Continue IV antibiotics. Hand surgery and ID following. PT consulted Problem Qualifiers (1) Sepsis: Qualified Code: A41.9 - Sepsis, due to unspecified organism (2) Pneumonia: (3) Pulmonary edema: Qualified Code: J81.0 - Acute pulmonary edema Tayla Valdivia MD Jul 16, 2016 14:25
[2016-07-16 16:00] VITALS: BP 152/83; PULSE 130; RESP 18; TEMP 97.8; O2SAT 91
[2016-07-16 20:00] VITALS: BP 133/73; PULSE 96; RESP 18; TEMP 100.2; O2SAT 97
[2016-07-16] MEDS: traZODone HCL 100 MG TAB PO SCH (20:07)
[2016-07-16] MEDS: QUEtiapine FUMARATE 300 MG TAB PO SCH (20:08)
[2016-07-16] MEDS: ASPIRIN EC 81 MG TABEC PO SCH (20:08)
[2016-07-16] MEDS: ACETAMINOPHEN 325 MG TAB PO PRN (20:09)
[2016-07-16] MEDS: ONDANSETRON HCL 4 MG/2 ML VIAL IV PRN (20:21)
[2016-07-16 22:45] VITALS: O2SAT 97
--- NOTE | 2016-07-16 23:16 | PD.ORT.PN ---
Objective Vitals Vital Signs Date Time Temp Pulse Resp B/P Pulse Ox O2 Delivery O2 Flow Rate FiO2 07/16/16 22:45 97 21 07/16/16 20:00 100.2 96 18 133/73 97 07/16/16 16:00 97.8 130 18 152/83 91 07/16/16 12:00 96.5 79 17 141/74 96 07/16/16 08:00 98.2 90 16 120/75 94 07/16/16 00:27 98.9 80 17 121/65 96 I/O 07/15/16 07/15/16 07/15/16 07/16/16 07/16/16 07/16/16 07:00 15:00 23:00 07:00 15:00 23:00 Intake Total 240 ml 240 ml 642 ml 240 ml 480 ml Output Total 450 ml 750 ml 400 ml 400 ml 800 ml 650 ml Balance -210 ml -510 ml 242 ml -400 ml -560 ml -170 ml Intake Oral 240 ml 240 ml 380 ml 240 ml 480 ml IV Total 262 ml Output Urine Total 450 ml 750 ml 400 ml 400 ml 800 ml 650 ml # Bowel Movements 2 0 2 0 Result Diagram: 07/16/16 0420 07/16/16 0420 Assessment & Plan Assessment and Plan 61yF with several month history of pain and erythema left middle finger -Called by nurse 07/15 that patient able to have MRI even with pain pump but that patient refused to cooperate and lay still for MRI -NPO at midnight for possible biopsy tomorrow versus discussing importance MRI with patient, clinically patient may eventually require amputation of DIP joint due to concern for osteomyelitis -Dr Ryder recommends biopsy to possibly assist with cultures although they may be negative due to patient being on antibiotics for several weeks -will continue to follow Margarita Arshad MD Jul 16, 2016 23:16
[2016-07-17] VITALS: BP 122/80; PULSE 89; RESP 18; TEMP 96.8; O2SAT 96
[2016-07-17] MEDS: MORPHINE SULFATE 4 MG/ML INJ IV PUSH PRN ×3 (01:20→21:38)
[2016-07-17] MEDS: VANCOMYCIN INJ 1,500 MG in SODIUM CHLORID 0.9% 500 ML INJ 500 ML IV SCH ×2 (01:47→20:58)
[2016-07-17] MEDS: CHLORHEXIDINE GLUCONATE 2 % 1 PACK (2 CLOTHS) TOP SCH (04:00)
[2016-07-17] MEDS: LEVOTHYROXINE SODIUM 125 MCG TAB PO SCH ×2 (06:00→11:31)
[2016-07-17] MEDS ORDERED: LIDOCAINE HCL 2% 50 ML VIAL ONE (07:24)
[2016-07-17] MEDS ORDERED: BUPIVACAINE HCL PF 0.5% 30 ML VIAL ONE (07:24)
[2016-07-17] MEDS ORDERED: BACITRACIN TOP OINT 15 GM TUBE ONE ×2 (07:24→14:12)
[2016-07-17] MEDS ORDERED: GENTAMICIN SULFATE 80 MG/2 ML VIAL ONE (07:24)
[2016-07-17] MEDS ORDERED: MUPIROCIN 2% OINT 22 GM TUBE ONE (07:25)
[2016-07-17 08:00] VITALS: BP 128/80; PULSE 80; RESP 17; TEMP 96.3; O2SAT 96
[2016-07-17] MEDS: ENOXAPARIN SODIUM 40 MG/0.4 ML SYRINGE SQ SCH (08:00)
[2016-07-17] MEDS: CETIRIZINE HCL 10 MG TAB PO SCH (11:31)
[2016-07-17] MEDS ORDERED: LIDOCAINE HCL 1% 50 ML VIAL ONE (11:51)
[2016-07-17] MEDS ORDERED: PROPOFOL 200 MG/20 ML AMP IV ONE (12:00)
[2016-07-17] MEDS ORDERED: ONDANSETRON HCL 4 MG/2 ML VIAL IV PUSH ONE (12:00)
[2016-07-17] MEDS ORDERED: ACETAMINOPHEN 1000 MG/100 ML VIAL IV ONE (13:01)
[2016-07-17] MEDS ORDERED: FAMOTIDINE 20 MG/2 ML VIAL ONE (13:01)
[2016-07-17] MEDS ORDERED: DEXAMETHASONE SOD PHOS 4 MG/ML VIAL ONE (14:18)
[2016-07-17] MEDS ORDERED: MIDAZOLAM HCL 2 MG/2 ML VIAL ONE (14:18)
[2016-07-17] MEDS ORDERED: NEOMYCIN/POLYMYXIN 1 ML G.U. IRRIGANT IR ONE (14:43)
--- NOTE | 2016-07-17 15:24 | HHI.PR ---
Addendum to Inpatient Note Addendum Reason: Additional Documentation Additional Information Attempted to see pt: gone to OR. covering for me this weekend. Amanda Ryder MD Jul 17, 2016 15:24
--- NOTE | 2016-07-17 15:33 | HHI.PR ---
Subjective Remarks Patient seen in follow up for sepsis, cellulitis with possible osteo on the finger. Patient seen in PACU. S/P I/D and bone biopsy of left middle finger. She reports feeling ok. No Pain Objective Vitals Vital Signs Date Time Temp Pulse Resp B/P Pulse Ox O2 Delivery O2 Flow Rate FiO2 07/17/16 08:00 96.3 80 17 128/80 96 07/17/16 00:00 96.8 89 18 122/80 96 07/16/16 22:45 97 21 07/16/16 20:00 100.2 96 18 133/73 97 07/16/16 16:00 97.8 130 18 152/83 91 I/O 07/16/16 07/16/16 07/16/16 07/17/16 07/17/16 07/17/16 07:00 15:00 23:00 07:00 15:00 23:00 Intake Total 240 ml 480 ml 0 ml 0 ml Output Total 400 ml 800 ml 650 ml 850 ml 700 ml Balance -400 ml -560 ml -170 ml -850 ml -700 ml Intake Oral 240 ml 480 ml 0 ml 0 ml Output Urine Total 400 ml 800 ml 650 ml 850 ml 700 ml # Bowel Movements 2 0 1 1 Result Diagram: 07/16/16 0420 07/17/16 0506 Objective Remarks GENERAL: Patient appear older than stated age. CARDIOVASCULAR: Normal rate and regular rhythm without murmurs, gallops, or rubs. RESPIRATORY: Good respiratory efforts. Breath sounds equal and clear to auscultation bilaterally. GASTROINTESTINAL: Abdomen soft, non-tender, non-distended. Normal active bowel sounds MUSCULOSKELETAL: Left third finger post op dressing appear intact. NEURO: Alert & Oriented x4 to person, place, time, situation. Moves all ext x4 PSYCH: Appropriate mood and affect. A/P Problem List: (1) Acute encephalopathy ICD Code: G93.40 Status: Acute (2) Lactic acidemia ICD Code: E87.2 Status: Acute (3) Sepsis ICD Code: A41.9 Status: Acute (4) Pneumonia ICD Code: J18.9 Status: Acute (5) Pulmonary edema ICD Code: J81.1 Status: Acute (6) Cellulitis of finger of left hand ICD Code: L03.012 Status: Acute (7) Probable osteomyelitis L middle finger Status: Acute (8) Hypokalemia ICD Code: E87.6 Status: Acute (9) Rhabdomyolysis ICD Code: M62.82 Status: Acute (10) Chronic back pain ICD Code: M54.9 Status: Acute (11) GERD (gastroesophageal reflux disease) ICD Code: K21.9 Status: Acute (12) Hypothyroidism ICD Code: E03.9 Status: Acute (13) Hyperlipidemia ICD Code: E78.5 Status: Acute (14) Hypertension ICD Code: I10 Status: Acute Assessment and Plan 61-year-old female with: Acute metabolic encephalopathy/agitated delirium: Resolved Depression -CT of the head is negative, delirium seems to be secondary to metabolic encephalopathy-now resolved -Patient does take Seroquel and trazodone. There is a history of depression in the chart. -Trazodone was decreased to 100 mg. -Neurology following. EEG is abnormal. Follow-up EEG improved. No seizure activities. Severe sepsis on presentation: Probable source, Left middle finger cellulitis - Placed on vancomycin. Zosyn Dced - Left hand x-ray -moderate osteoarthritis. Unable to get MRI due to morphine pump - Discussed with infectious disease. Hand surgery following, S/P I&D and bone biopsy - Follow path and cultures. ID following. Pulmonary edema: Resolved Probable atypical pneumonia Obstructive sleep apnea -Nasal cannula oxygen -DuoNeb every 6 hours scheduled and when necessary -CT chest shows pulmonary edema, clinically appears noncardiogenic - Currently on Vancomycin per ID - 2-D echocardiogram shows preserved EF. Chronic back pain: - Patient follows with pain management. She has a morphine pump. As far as she knows it is functioning. - Limit additional narcotics. If she gets too sedated, would call her pain management physician to inquire about turning the pump off. Lactic acidemia -s/p Normal saline IV fluids 5 L bolus. Acute on Chronic kidney disease Rhabdomyolysis -Resolved with hydration -Remove Carney. PROPH: -Bilateral lower extremity SCDs. Lovenox 40 mg sq daily. Discharge Planning Continue IV antibiotics. Hand surgery and ID following. Follow cultures and pathology. Problem Qualifiers (1) Sepsis: Qualified Code: A41.9 - Sepsis, due to unspecified organism (2) Pneumonia: (3) Pulmonary edema: Qualified Code: J81.0 - Acute pulmonary edema Tayla Valdivia MD Jul 17, 2016 15:33
[2016-07-17] MEDS ORDERED: DO NOT ADM ANY ANTICOAGULANT DRUGS PRN (15:37)
--- NOTE | 2016-07-17 16:40 | PD.ORT.PN ---
Subjective Subjective Remarks Patient reports pain controlled. Objective Vitals Vital Signs Date Time Temp Pulse Resp B/P Pulse Ox O2 Delivery O2 Flow Rate FiO2 07/17/16 16:00 97.3 81 12 154/99 99 Nasal Cannula 2 07/17/16 15:45 82 12 156/90 98 Nasal Cannula 2 07/17/16 15:34 97.3 83 20 160/92 99 Nasal Cannula 2 07/17/16 08:00 96.3 80 17 128/80 96 07/17/16 00:00 96.8 89 18 122/80 96 07/16/16 22:45 97 21 07/16/16 20:00 100.2 96 18 133/73 97 I/O 07/16/16 07/16/16 07/16/16 07/17/16 07/17/16 07/17/16 07:00 15:00 23:00 07:00 15:00 23:00 Intake Total 240 ml 480 ml 0 ml 0 ml 200 ml Output Total 400 ml 800 ml 650 ml 850 ml 700 ml Balance -400 ml -560 ml -170 ml -850 ml -700 ml 200 ml Intake Oral 240 ml 480 ml 0 ml 0 ml Other 200 ml Output Urine Total 400 ml 800 ml 650 ml 850 ml 700 ml # Bowel Movements 2 0 1 1 Result Diagram: 07/16/16 0420 07/17/16 0506 Objective Remarks Dressing in place, <2 sec capillary refill to finger, able to fire fdp, finger extensor Assessment & Plan Assessment and Plan 61yF with several month history of pain and erythema left middle finger, concern for osteomyelitis -Patient refused MRI -Consented for I&D, bone biopsy left middle finger, elevated WBC 13 today, ESR 49, CRP 1.8, no other source of infection -No gross purulence intraop, cultures sent from superficial as well as DIP joint , pathology also sent -Dorsal incision made, extensor tendon intact -Dressing change Sun by Dr Robles, will continue to follow Margarita Arshad MD Jul 17, 2016 16:40
[2016-07-17] MEDS: SODIUM CHLORIDE 0.9% FLUSH 10 ML FLUSH IV FLUSH SCH ×2 (18:08→20:58)
[2016-07-17 20:00] VITALS: BP 148/91; PULSE 89; RESP 20; TEMP 98.2; O2SAT 96
[2016-07-17] MEDS: traZODone HCL 100 MG TAB PO SCH (20:58)
[2016-07-17] MEDS: QUEtiapine FUMARATE 300 MG TAB PO SCH (20:58)
[2016-07-17] MEDS: ASPIRIN EC 81 MG TABEC PO SCH (20:58)
[2016-07-18] VITALS: BP 159/86; PULSE 94; RESP 20; TEMP 97.2; O2SAT 96
[2016-07-18] MEDS: LACTATED RINGER'S 1000 ML INJ 1,000 ML IV SCH (02:45)
[2016-07-18] MEDS: MORPHINE SULFATE 4 MG/ML INJ IV PUSH PRN ×5 (03:15→21:20)
[2016-07-18] MEDS: CHLORHEXIDINE GLUCONATE 2 % 1 PACK (2 CLOTHS) TOP SCH (04:00)
[2016-07-18 05:55] LABS: MEAN CELL VOLUME 90.8 FL (80.0-100.0); MEAN CORPUSCULAR HEMOGLOBIN 29.7 PG (27.0-34.0); MEAN CORPUSCULAR HGB CONC 32.7 % (32.0-36.0); PLATELET COUNT 204 TH/MM3 (150-450); RED CELL DISTRIBUTION WIDTH 15.3 % (11.6-17.2); REVIEW FLAG FINAL; WHITE BLOOD COUNT 6.8 TH/MM3 (4.0-11.0)
[2016-07-18 06:19] LABS: BICARBONATE 24.7 MEQ/L (21.0-32.0); POTASSIUM 3.6 MEQ/L (3.5-5.1)
[2016-07-18 08:00] VITALS: BP 146/79; PULSE 83; RESP 17; TEMP 96.4; O2SAT 95
[2016-07-18] MEDS: CETIRIZINE HCL 10 MG TAB PO SCH (09:40)
[2016-07-18] MEDS: ENOXAPARIN SODIUM 40 MG/0.4 ML SYRINGE SQ SCH (09:40)
[2016-07-18] MEDS: SODIUM CHLORIDE 0.9% FLUSH 10 ML FLUSH IV FLUSH SCH ×2 (09:41→20:40)
[2016-07-18 12:00] VITALS: BP 165/95; PULSE 91; RESP 18; TEMP 97.2; O2SAT 98
--- NOTE | 2016-07-18 12:12 | HHI.PR ---
Subjective Remarks resting comfortably with no distress. however has some pain to the left hand. no fever. Objective Vitals Vital Signs Date Time Temp Pulse Resp B/P Pulse Ox O2 Delivery O2 Flow Rate FiO2 07/18/16 08:00 96.4 83 17 146/79 95 07/18/16 03:20 20 07/18/16 00:00 97.2 94 20 159/86 96 07/17/16 20:00 98.2 89 20 148/91 96 07/17/16 16:00 97.3 81 12 154/99 99 Nasal Cannula 2 07/17/16 15:45 82 12 156/90 98 Nasal Cannula 2 07/17/16 15:34 97.3 83 20 160/92 99 Nasal Cannula 2 I/O 07/17/16 07/17/16 07/17/16 07/18/16 07/18/16 07/18/16 07:00 15:00 23:00 07:00 15:00 23:00 Intake Total 0 ml 0 ml 440 ml 1220 ml Output Total 850 ml 700 ml 250 ml Balance -850 ml -700 ml 190 ml 1220 ml Intake Oral 0 ml 0 ml 240 ml 720 ml IV Total 500 ml Other 200 ml Output Urine Total 850 ml 700 ml 250 ml # Voids 5 # Bowel Movements 1 1 Result Diagram: 07/18/16 0406 07/18/16 0406 Imaging Last Impressions Chest X-Ray 07/12/16 0600 Signed Impressions: Service Date/Time: Tuesday, July 12, 2016 05:27 - CONCLUSION: Prominence of the interstitium which could represent some mild edema. Bry Garrett MD Chest CT 07/11/16 1115 Signed Impressions: Service Date/Time: Monday, July 11, 2016 11:21 - CONCLUSION: No evidence of infection. Findings consistent with congestive heart failure and pulmonary edema. This is a new finding as compared to the prior CT. Richa Luna MD Abdomen/Pelvis CT 07/11/16 1115 Signed Impressions: Service Date/Time: Monday, July 11, 2016 11:21 - CONCLUSION: No evidence of inflammatory process within the abdomen or pelvis. Stable areas of renal cortical thinning consistent with prior infection and scar. Stable diverticulosis. Richa Luna MD Head CT 07/11/16 0858 Signed Impressions: Service Date/Time: Monday, July 11, 2016 09:27 - CONCLUSION: Normal examination. Richa Luna MD Hand X-Ray 07/11/16 0000 Signed Impressions: Service Date/Time: Monday, July 11, 2016 14:36 - CONCLUSION: Moderate primary osteoarthritis involving in the third DIP joint. Porfirio Barrera MD Objective Remarks GENERAL: This is a well-nourished, well-developed patient, in no apparent distress. CARDIOVASCULAR: Regular rate and regular rhythm without murmurs, gallops, or rubs. RESPIRATORY: Clear to auscultation. Breath sounds equal bilaterally. No wheezes , rales, or rhonchi. GASTROINTESTINAL: Abdomen soft, non-tender, nondistended. Normal, active bowel sounds MUSCULOSKELETAL:left hand covered with clean dressing. NEURO: Alert & Oriented x4 to person, place, time, situation. Moves all ext x4 Procedures I/D of the left middle finger/ bone biopsy Medications and IVs Current Medications Haloperidol Lactate (Haldol Inj) 5 mg STK-MED ONCE .ROUTE ; Start 07/11/16 at 08: 51; Stop 07/11/16 at 08:52; Status DC Lorazepam (Ativan Inj) 2 mg ONCE ONCE IM ; Start 07/11/16 at 09:00; Stop at 09:01; Status DC Haloperidol Lactate (Haldol Inj) 5 mg ONCE ONCE IM ; Start 07/11/16 at 09:00; Stop 07/11/16 at 09:01; Status DC Lorazepam 2 mg 2 mg STK-MED ONCE .ROUTE ; Start 07/11/16 at 08:51; Stop 07/11/16 at 08:52; Status DC Vancomycin HCl 1000 mg/Sodium Chloride 250 ml @ 250 mls/hr ONCE ONCE IV Last administered on 07/11/16t 11:11; Start 07/11/16 at 10:45; Stop 07/11/16 at 11:44; Status DC Piperacillin Sod/ Tazobactam Sod (Zosyn 3.375 Gm Premix) 50 ml @ 100 mls/hr ONCE ONCE IV Last administered on 07/11/16t 11:11; Start 07/11/16 at 10:45; Stop 07/11/16 at 11:14; Status DC Aspirin 81 mg 81 mg HS PO Last administered on 07/17/16 20:58; Start 07/11/16 at 21:00 Sodium Chloride 1,000 ml @ 999 mls/hr BOLUS ONCE IV Last administered on 11:14; Start 07/11/16 at 11:00; Stop 07/11/16 at 12:00; Status DC Sodium Chloride 1,000 ml @ 999 mls/hr BOLUS ONCE IV Last administered on 11:13; Start 07/11/16 at 11:00; Stop 07/11/16 at 12:00; Status DC Sodium Chloride 1,000 ml @ 999 mls/hr BOLUS ONCE IV Last administered on 11:13; Start 07/11/16 at 11:00; Stop 07/11/16 at 12:00; Status DC Potassium Chloride 100 ml @ 50 mls/hr BOLUS ONCE IV Last administered on 12:45; Start 07/11/16 at 11:00; Stop 07/11/16 at 12:59; Status DC Sodium Chloride (NS 1000 ml Inj) 1,000 ml @ 150 mls/hr Q6H40M IV Last administered on 07/11/16 23:22; Start 07/11/16 at 10:59; Stop 07/12/16 at 07:46; Status DC Sodium Chloride (NS Flush) 2 ml BID IV FLUSH Last administered on 07/18/16 09: 41; Start 07/11/16 at 21:00 Acetaminophen (Tylenol) 650 mg Q6H PRN PO PAIN 1-10 AND/OR FEVER >101F Last administered on 07/16/16 20:09; Start 07/11/16 at 11:00 Pantoprazole Sodium (Protonix Inj) 40 mg DAILY IV ; Start 07/12/16 at 09:00; Stop 07/12/16 at 09:00; Status DC Albuterol/ Ipratropium (Duoneb Neb) 1 ampule Q6HR NEB INH Last administered on 07/14/16 22:01; Start 07/11/16 at 11:00; Stop 07/15/16 at 11:02; Status DC Albuterol/ Ipratropium (Duoneb Neb) 1 ampule Q4HR NEB PRN INH WHEEZING Last administered on 07/15/16 12:45; Start 07/11/16 at 11:00 Miscellaneous Information 1 Q361D XX Last administered on 07/11/16 11:00; Start 07/11/16 at 11:00 Chlorhexidine Gluconate (Chlorhexidine 2% Cloth) Taper DAILY@04 TOP Last administered on 07/14/16 04:00; Start 07/12/16 at 04:00; Stop 07/08/17 at 03:59 Chlorhexidine Gluconate 3 pack 3 pack UNSCH PRN TOP HYGIENIC CARE; Start at 11:00 Piperacillin Sod/ Tazobactam Sod 50 ml @ 100 mls/hr Q6H IV ; Start 07/11/16 at 14:00; Stop 07/11/16 at 14:00; Status DC Levofloxacin/ Dextrose 150 ml @ 100 mls/hr Q24H IV Last administered on 12:39; Start 07/11/16 at 13:00; Stop 07/13/16 at 11:21; Status DC Piperacillin Sod/ Tazobactam Sod 50 ml @ 100 mls/hr Q6H IV Last administered on 07/13/16 11:08; Start 07/11/16 at 17:00; Stop 07/13/16 at 11:22; Status DC Dexmedetomidine HCl 200 mcg/ Sodium Chloride 52 ml @ 0 mls/hr TITRATE IV Last administered on 07/12/16 04:47; Start 07/11/16 at 14:00; Stop 07/12/16 at 07:55; Status DC Sodium Chloride 2,000 ml @ 0 mls/hr Q0M ONCE IV Last administered on 07/11/16 13:35; Start 07/11/16 at 13:30; Stop 07/11/16 at 13:31; Status DC Potassium Chloride 100 ml @ 50 mls/hr Q2H PRN IV For Potassium 2.8 - 3.2 mEq/L ; Start 07/11/16 at 14:15; Stop 07/15/16 at 10:41; Status DC Potassium Chloride 100 ml @ 50 mls/hr Q2H PRN IV For Potassium 2.8 - 3.2 mEq/ L Last administered on 07/14/16 15:21; Start 07/11/16 at 14:15; Stop 07/15/16 at 10:41; Status DC Potassium Chloride 100 ml @ 25 mls/hr UNSCH PRN IV For Potassium 3.3 - 3.5 mEq /L; Start 07/11/16 at 14:15; Stop 07/15/16 at 10:41; Status DC Potassium Chloride 100 ml @ 50 mls/hr Q2H PRN IV For Potassium 3.3 - 3.5 mEq/ L Last administered on 07/14/16t 06:34; Start 07/11/16 at 14:15; Stop 07/15/16 at 10:41; Status DC Magnesium Sulfate/ Sodium Chloride (Magnesium Sulfate Inj/NS Inj) 100 ml @ 50 mls/hr UNSCH PRN IV For Magnesium 0.9 - 1.1 mg/dL; Start 07/11/16 at 14:15; Stop 07/15/16 at 10:41; Status DC Magnesium Oxide 800 mg 800 mg UNSCH PRN PO For Magnesium 1.2 - 1.6 mg/dL; Start 07/11/16 at 14:15; Stop 07/15/16 at 10:41; Status DC Magnesium Sulfate/ Sodium Chloride (Magnesium Sulfate Inj/NS Inj) 100 ml @ 50 mls/hr UNSCH PRN IV For Magnesium 1.2 - 1.6 mg/dL; Start 07/11/16 at 14:15; Stop 07/15/16 at 10:41; Status DC Potassium Phosphate 2000 mg 2,000 mg Q4H PRN PO For Phosphorus < 2.5 mg/dL; Start 07/11/16 at 14:15; Stop 07/15/16 at 10:41; Status DC Sodium Phosphate/ Sodium Chloride (Sodium Phosphate Inj/NS 250 ml Inj) 250 ml @ 42 mls/hr UNSCH PRN IV For Phosphorus < 2.5 mg/dL; Start 07/11/16 at 14:15; Stop 07/15/16 at 10:41; Status DC Potassium Phosphate 2000 mg 2,000 mg UNSCH PRN PO/TUBE SEE LABEL COMMENTS; Start 07/11/16 at 14:15; Stop 07/15/16 at 10:41; Status DC Potassium Phosphate 30 mmol/ Sodium Chloride 260 ml @ 42 mls/hr UNSCH PRN IV SEE LABEL COMMENTS Last administered on 07/12/16t 21:35; Start 07/11/16 at 14:15; Stop 07/15/16 at 10:41; Status DC Pharmacy Profile Note 0 ml @ 0 mls/hr UNSCH OTHER ; Start 07/11/16 at 14:15 Vancomycin HCl/ Sodium Chloride (Vancomycin Inj/ NS 250 ml Inj) 262.5 ml @ 250 mls/hr Q24H IV Last administered on 07/13/16 09:04; Start 07/12/16 at 10:00; Stop 07/13/16 at 12:21; Status DC Miscellaneous Information SPECIFIC LAB TO BE NATALYA... ONCE ONCE .XX ; Start 07/14 at 20:45; Stop 07/14/16 at 20:46; Status DC Potassium Chloride/Sodium Chloride (1/2 NS + KCl 20 Meq Inj) 1,000 ml @ 100 mls /hr Q10H IV Last administered on 07/14/16 04:22; Start 07/12/16 at 07:45; Stop 07/14/16 at 16:23; Status DC Enoxaparin Sodium (Lovenox Inj) 40 mg Q24H SQ Last administered on 07/18/16 09 :40; Start 07/12/16 at 08:00 Lorazepam (Ativan Inj) 0.5 mg Q4H PRN IV PUSH agitation Last administered on 11:30; Start 07/12/16 at 08:00 Morphine Sulfate (Morphine Inj) 2 mg Q3H PRN IV PUSH pain 6-10 Last administered on 07/18/16 12:01; Start 07/12/16 at 08:00 Lorazepam (Ativan Inj) 1 mg NOW ONCE IV ; Start 07/12/16 at 18:00; Stop 07/12/16 at 18:01; Status DC Trazodone HCl (Desyrel) 200 mg HS PO Last administered on 07/12/16 23:14; Start 07/12/16 at 22:50; Stop 07/13/16 at 14:17; Status DC Quetiapine Fumarate (SEROquel) 300 mg DAILY PO Last administered on 07/15/16 08:44; Start 07/12/16 at 23:30; Stop 07/15/16 at 10:45; Status DC Quetiapine Fumarate (SEROquel) 300 mg NOW ONCE PO Last administered on 23:30; Start 07/12/16 at 23:30; Stop 07/12/16 at 23:31; Status DC Sodium Chloride 1 spray 1 spray Q4H PRN NASAL NASAL CONGESTION; Start 07/12/16 at 23:45; Status Cancel Vancomycin HCl/ Sodium Chloride (Vancomycin Inj/ NS 250 ml Inj) 262.5 ml @ 262.5 mls/ hr Q18H IV Last administered on 07/15/16 16:10; Start 07/14/16 at 03:00; Stop 07/15/16 at 21:00; Status DC Trazodone HCl (Desyrel) 100 mg HS PO Last administered on 07/17/16 20:58; Start 07/13/16 at 21:00 Miscellaneous Information SPECIFIC LAB TO BE DRAWN:VANCO TROUGH DATE TO BE DR... ONCE ONCE .XX Last administered on 07/15/16 14:45; Start 07/15/16 at 14 :45; Stop 07/15/16 at 14:46; Status DC Quetiapine Fumarate (SEROquel) 300 mg HS PO Last administered on 07/17/16 20: 58; Start 07/16/16 at 21:00 Levothyroxine Sodium (Synthroid) 125 mcg DAILY@0600 PO Last administered on 11:31; Start 07/16/16 at 06:00 Cetirizine HCl (ZyrTEC) 10 mg DAILY PO Last administered on 07/18/16 09:40; Start 07/15/16 at 10:41 Ondansetron HCl 4 mg 4 mg Q6H PRN IV NAUSEA Last administered on 07/16/16 20: 21; Start 07/15/16 at 10:45 Vancomycin HCl 1500 mg/Sodium Chloride 515 ml @ 250 mls/hr Q18H IV Last administered on 07/17/16 20:58; Start 07/16/16 at 09:00; Stop 07/18/16 at 18:00 Lactated Ringer's (Lr 1000 ml Inj) 1,000 ml @ 0 mls/hr Q24H IV ; Start at 02:45 Metoprolol Tartrate (Lopressor) 25 mg MANAGER TRADE PRN PO SEE LABEL COMMENTS; Start 07/16/16 at 02:45; Stop 07/19/16 at 02:44 Povidone Iodine (Betadine 5% Antisepsis Kit) 1 applic MANAGER TRADE PRN EACH NARE SEE LABEL COMMENTS; Start 07/16/16 at 02:45; Stop 07/19/16 at 02:44 Chlorhexidine Gluconate (Chlorhexidine 2% Cloth) 3 pack MANAGER TRADE PRN TOPICAL SEE LABEL COMMENTS; Start 07/16/16 at 02:45; Stop 07/19/16 at 02:44 Miscellaneous Information SPECIFIC LAB TO BE DRAWN:VANCOMYCIN TROUGH DATE TO... ONCE ONCE .XX ; Start 07/20/16 at 02:45; Stop 07/20/16 at 02:46; Status Cancel Bupivacaine HCl (Marcaine Pf 0.5% Inj) 30 ml STK-MED ONCE .ROUTE ; Start at 07:24; Stop 07/17/16 at 07:25; Status DC Lidocaine HCl (Xylocaine 2% Inj) 50 ml STK-MED ONCE .ROUTE Last administered on 07/17/16 14:43; Start 07/17/16 at 07:24; Stop 07/17/16 at 07:25; Status DC Bacitracin (Baciguent Oint) 15 applic STK-MED ONCE .ROUTE ; Start 07/17/16 at 07 :24; Stop 07/17/16 at 07:25; Status DC Gentamicin Sulfate (Gentamicin Inj) 80 mg STK-MED ONCE .ROUTE ; Start 07/17/16 at 07:24; Stop 07/17/16 at 07:25; Status DC Mupirocin (Bactroban 2% Oint) 22 applic STK-MED ONCE .ROUTE ; Start 07/17/16 at 07:25; Stop 07/17/16 at 07:26; Status DC Lidocaine HCl (Xylocaine 1% Inj (50 ml)) 50 ml STK-MED ONCE .ROUTE ; Start 07/17 at 11:51; Stop 07/17/16 at 11:52; Status DC Acetaminophen (Ofirmev Inj) 1,000 mg STK-MED ONCE IV Last administered on 13:03; Start 07/17/16 at 13:01; Stop 07/17/16 at 13:02; Status DC Famotidine (Pepcid Inj) 20 mg STK-MED ONCE .ROUTE Last administered on 13:01; Start 07/17/16 at 13:01; Stop 07/17/16 at 13:02; Status DC Bacitracin (Baciguent Oint) 15 applic STK-MED ONCE .ROUTE ; Start 07/17/16 at 14 :12; Stop 07/17/16 at 14:13; Status DC Midazolam HCl (Versed Inj) 2 mg STK-MED ONCE .ROUTE Last administered on 14:19; Start 07/17/16 at 14:18; Stop 07/17/16 at 14:19; Status DC Dexamethasone Sodium Phosphate (Decadron Inj) 4 mg STK-MED ONCE .ROUTE Last administered on 07/17/16 14:19; Start 07/17/16 at 14:18; Stop 07/17/16 at 14:19 ; Status DC Neomycin/Polymyxin (Neosporin G.u. Irr) 2 ml STK-MED ONCE IR Last administered on 07/17/16 14:43; Start 07/17/16 at 14:43; Stop 07/17/16 at 14:59; Status DC Fentanyl Citrate (fentaNYL INJ) 100 mcg STK-MED ONCE .ROUTE ; Start 07/17/16 at 15:38; Stop 07/17/16 at 15:39; Status DC Miscellaneous Information ALL NURSING DEPARTME... UNSCH PRN .XX SEE LABEL COMMENTS; Start 07/17/16 at 15:37; Stop 07/18/16 at 15:36 Vancomycin HCl/ Sodium Chloride (Vancomycin Inj/ NS 500 ml Inj) 515 ml @ 257.5 mls/ hr Q24H IV ; Start 07/19/16 at 15:00 Miscellaneous Information SPECIFIC LAB TO BE NATALYA... ONCE ONCE .XX ; Start 07/21 at 14:45; Stop 07/21/16 at 14:46 A/P Assessment and Plan A/P Acute metabolic encephalopathy/agitated delirium: Resolved Depression -CT of the head is negative, delirium seems to be secondary to metabolic encephalopathy-now resolved -Patient does take Seroquel and trazodone. There is a history of depression in the chart. -Trazodone was decreased to 100 mg qhs. -Neurology following. EEG is abnormal. Follow-up EEG improved. No seizure activities. Severe sepsis on presentation: Probable source, Left middle finger cellulitis -s/p I/D of the left middle finger and bone biopsy - Placed on vancomycin. Zosyn Dced - Left hand x-ray -moderate osteoarthritis. Unable to get MRI due to morphine pump - Follow path and cultures. -hand surgery and ID following. Pulmonary edema: Resolved Probable atypical pneumonia Obstructive sleep apnea -Nasal cannula oxygen -DuoNeb every 6 hours scheduled and when necessary -CT chest shows pulmonary edema, clinically appears noncardiogenic - Currently on Vancomycin per ID - 2-D echocardiogram shows preserved EF. Chronic back pain: - Patient follows with pain management. She has a morphine pump. As far as she knows it is functioning. - Limit additional narcotics. If she gets too sedated, would call her pain management physician to inquire about turning the pump off. Lactic acidemia -s/p Normal saline IV fluids 5 L bolus. Acute on Chronic kidney disease Rhabdomyolysis -Resolved with hydration -Remove Carney. PROPH: -Bilateral lower extremity SCDs. Lovenox 40 mg sq daily. Discharge Planning when cleared by hand surgery and ID. Kaylynn Tejada MD Jul 18, 2016 12:12
[2016-07-18 13:22] VITALS: O2SAT 96
[2016-07-18] MEDS: VANCOMYCIN INJ 1,500 MG in SODIUM CHLORID 0.9% 500 ML INJ 500 ML IV SCH (14:39)
[2016-07-18] MEDS: ONDANSETRON HCL 4 MG/2 ML VIAL IV PRN (14:40)
[2016-07-18] MEDS: LORazepam 2 MG/ML VIAL IV PUSH PRN (14:42)
[2016-07-18 16:00] VITALS: BP 166/91; PULSE 95; RESP 18; TEMP 97.9; O2SAT 97
--- NOTE | 2016-07-18 18:34 | MP ---
cc: GENE ELIZABETH MD DATE OF SURGERY 07/17/16 PREOPERATIVE DIAGNOSIS Concern for osteomyelitis left middle finger. POSTOPERATIVE DIAGNOSIS Concern for osteomyelitis left middle finger. PROCEDURE 1. Incision and drainage left middle finger distal interphalangeal joint. 2. Biopsy left middle finger distal interphalangeal joint. SURGEON Dr. Kuldeep Elizabeth ANESTHESIA General and local TOURNIQUET TIME 22 minutes at 250 mmHg SPECIMEN Cultures x2, pathology x2 INDICATIONS FOR PROCEDURE Tammy Manley is a 61-year-old female who was admitted to the hospital for altered mental status. Upon the patient becoming more oriented, she reported a 3-month history of pain and swelling over the left middle finger without any known injury. She states she has been on multiple antibiotics without any significant improvement. She reports mild improvement on the IV antibiotics in the hospital. She was found to have elevated white count of 13, ESR 49, CRP 1.8. The patient refused the MRI multiple times. Treatment options were discussed with the patient including continued observation on IV antibiotics versus a biopsy and she elected to proceed with surgical intervention. This was also discussed with Dr. Ryder of infectious disease. Risks were explained but not limited to wound complications, infection, sepsis, need for amputation of the finger, stiffness, pain, need for additional surgeries and she elected to proceed. DESCRIPTION OF PROCEDURE The patient was identified in the preoperative holding area and the correct extremity was marked. The patient was taken to the operating room. Anesthesia was induced. Left upper extremity was prepped and draped in normal sterile fashion. 2% lidocaine with no epinephrine was used to perform a digital block over the left middle finger. Tourniquet was inflated without Esmarch to 250 mmHg for 22 minutes. A dorsal curvilinear incision was made over the DIP joint. Upon making a skin incision, there was no significant purulence. The extensor tendon was intact and protected. There was some synovium which was sent for pathology and culture as well as superficial and deep culture from the DIP joint. There was a mild amount of fluid in the DIP joint, but again no gross purulence. The wound was irrigated with 2 liters of antibiotic saline. Tourniquet was released. Hemostasis was obtained. The wound was closed loosely with chromic. The patient is placed into a soft dressing and awoken from anesthesia without any complications. Hopefully, the pathology or cultures will be informative in regards to the etiology of the left middle finger pain and swelling. MD CHA Martinez /4:44 PM /6:13 PM [facility]
[2016-07-18 20:00] VITALS: BP 175/90; PULSE 85; RESP 20; TEMP 96.8; O2SAT 96
[2016-07-18] MEDS ORDERED: METOPROLOL TARTRATE 25 MG TAB PO PRN (20:15)
[2016-07-18] MEDS: traZODone HCL 100 MG TAB PO SCH (20:42)
[2016-07-18] MEDS: ASPIRIN EC 81 MG TABEC PO SCH (20:42)
[2016-07-18] MEDS: QUEtiapine FUMARATE 300 MG TAB PO SCH (20:42)
[2016-07-19] MEDS: LACTATED RINGER'S 1000 ML INJ 1,000 ML IV SCH (02:45)
[2016-07-19] MEDS: CHLORHEXIDINE GLUCONATE 2 % 1 PACK (2 CLOTHS) TOP SCH ×2 (03:19→19:26)
[2016-07-19] MEDS: MORPHINE SULFATE 4 MG/ML INJ IV PUSH PRN ×3 (03:59→21:55)
[2016-07-19] MEDS: LEVOTHYROXINE SODIUM 125 MCG TAB PO SCH (06:24)
[2016-07-19 08:00] VITALS: BP 134/78; PULSE 82; RESP 12; TEMP 97.5; O2SAT 94
[2016-07-19] MEDS: CETIRIZINE HCL 10 MG TAB PO SCH (09:15)
[2016-07-19] MEDS: SODIUM CHLORIDE 0.9% FLUSH 10 ML FLUSH IV FLUSH SCH ×2 (09:16→21:00)
[2016-07-19] MEDS: ENOXAPARIN SODIUM 40 MG/0.4 ML SYRINGE SQ SCH (09:16)
--- NOTE | 2016-07-19 11:32 | HHI.PR ---
Subjective Remarks resting comfortably with no distress. afebrile. pain is controlled. d/w the RN. Objective Vitals Vital Signs Date Time Temp Pulse Resp B/P Pulse Ox O2 Delivery O2 Flow Rate FiO2 07/19/16 08:00 97.5 82 12 134/78 94 07/18/16 21:25 18 07/18/16 20:00 96.8 85 20 175/90 96 07/18/16 16:00 97.9 95 18 166/91 97 07/18/16 13:22 96 21 07/18/16 12:00 97.2 91 18 165/95 98 I/O 07/18/16 07/18/16 07/18/16 07/19/16 07/19/16 07/19/16 07:00 15:00 23:00 07:00 15:00 23:00 Intake Total 1220 ml 240 ml 240 ml 480 ml Output Total 600 ml Balance 1220 ml -360 ml 240 ml 480 ml Intake Oral 720 ml 240 ml 240 ml 480 ml IV Total 500 ml Output Urine Total 600 ml # Voids 5 4 3 # Bowel Movements 1 1 Result Diagram: 07/18/16 0406 07/19/16 0335 Imaging Last Impressions Chest X-Ray 07/12/16 0600 Signed Impressions: Service Date/Time: Tuesday, July 12, 2016 05:27 - CONCLUSION: Prominence of the interstitium which could represent some mild edema. Bry Garrett MD Chest CT 07/11/16 1115 Signed Impressions: Service Date/Time: Monday, July 11, 2016 11:21 - CONCLUSION: No evidence of infection. Findings consistent with congestive heart failure and pulmonary edema. This is a new finding as compared to the prior CT. Richa Luna MD Abdomen/Pelvis CT 07/11/16 1115 Signed Impressions: Service Date/Time: Monday, July 11, 2016 11:21 - CONCLUSION: No evidence of inflammatory process within the abdomen or pelvis. Stable areas of renal cortical thinning consistent with prior infection and scar. Stable diverticulosis. Richa Luna MD Head CT 07/11/16 0858 Signed Impressions: Service Date/Time: Monday, July 11, 2016 09:27 - CONCLUSION: Normal examination. Richa Luna MD Hand X-Ray 07/11/16 0000 Signed Impressions: Service Date/Time: Monday, July 11, 2016 14:36 - CONCLUSION: Moderate primary osteoarthritis involving in the third DIP joint. Porfirio Barrera MD Objective Remarks GENERAL: This is a well-nourished, well-developed patient, in no apparent distress. CARDIOVASCULAR: Regular rate and regular rhythm without murmurs, gallops, or rubs. RESPIRATORY: Clear to auscultation. Breath sounds equal bilaterally. No wheezes , rales, or rhonchi. GASTROINTESTINAL: Abdomen soft, non-tender, nondistended. Normal, active bowel sounds MUSCULOSKELETAL:left hand covered with clean dressing. NEURO: Alert & Oriented x4 to person, place, time, situation. Moves all ext x4 Procedures I/D of the left middle finger/ bone biopsy Medications and IVs Current Medications Haloperidol Lactate (Haldol Inj) 5 mg STK-MED ONCE .ROUTE ; Start 07/11/16 at 08: 51; Stop 07/11/16 at 08:52; Status DC Lorazepam (Ativan Inj) 2 mg ONCE ONCE IM ; Start 07/11/16 at 09:00; Stop at 09:01; Status DC Haloperidol Lactate (Haldol Inj) 5 mg ONCE ONCE IM ; Start 07/11/16 at 09:00; Stop 07/11/16 at 09:01; Status DC Lorazepam 2 mg 2 mg STK-MED ONCE .ROUTE ; Start 07/11/16 at 08:51; Stop 07/11/16 at 08:52; Status DC Vancomycin HCl 1000 mg/Sodium Chloride 250 ml @ 250 mls/hr ONCE ONCE IV Last administered on 07/11/16 11:11; Start 07/11/16 at 10:45; Stop 07/11/16 at 11:44; Status DC Piperacillin Sod/ Tazobactam Sod (Zosyn 3.375 Gm Premix) 50 ml @ 100 mls/hr ONCE ONCE IV Last administered on 07/11/16 11:11; Start 07/11/16 at 10:45; Stop 07/11/16 at 11:14; Status DC Aspirin 81 mg 81 mg HS PO Last administered on 07/18/16 20:42; Start 07/11/16 at 21:00 Sodium Chloride 1,000 ml @ 999 mls/hr BOLUS ONCE IV Last administered on 11:14; Start 07/11/16 at 11:00; Stop 07/11/16 at 12:00; Status DC Sodium Chloride 1,000 ml @ 999 mls/hr BOLUS ONCE IV Last administered on 11:13; Start 07/11/16 at 11:00; Stop 07/11/16 at 12:00; Status DC Sodium Chloride 1,000 ml @ 999 mls/hr BOLUS ONCE IV Last administered on 11:13; Start 07/11/16 at 11:00; Stop 07/11/16 at 12:00; Status DC Potassium Chloride 100 ml @ 50 mls/hr BOLUS ONCE IV Last administered on 12:45; Start 07/11/16 at 11:00; Stop 07/11/16 at 12:59; Status DC Sodium Chloride (NS 1000 ml Inj) 1,000 ml @ 150 mls/hr Q6H40M IV Last administered on 07/11/16 23:22; Start 07/11/16 at 10:59; Stop 07/12/16 at 07:46; Status DC Sodium Chloride (NS Flush) 2 ml BID IV FLUSH Last administered on 07/19/16 09: 16; Start 07/11/16 at 21:00 Acetaminophen (Tylenol) 650 mg Q6H PRN PO PAIN 1-10 AND/OR FEVER >101F Last administered on 07/16/16 20:09; Start 07/11/16 at 11:00 Pantoprazole Sodium (Protonix Inj) 40 mg DAILY IV ; Start 07/12/16 at 09:00; Stop 07/12/16 at 09:00; Status DC Albuterol/ Ipratropium (Duoneb Neb) 1 ampule Q6HR NEB INH Last administered on 07/14/16 22:01; Start 07/11/16 at 11:00; Stop 07/15/16 at 11:02; Status DC Albuterol/ Ipratropium (Duoneb Neb) 1 ampule Q4HR NEB PRN INH WHEEZING Last administered on 07/15/16 12:45; Start 07/11/16 at 11:00 Miscellaneous Information 1 Q361D XX Last administered on 07/11/16 11:00; Start 07/11/16 at 11:00 Chlorhexidine Gluconate (Chlorhexidine 2% Cloth) Taper DAILY@04 TOP Last administered on 07/14/16 04:00; Start 07/12/16 at 04:00; Stop 07/08/17 at 03:59 Chlorhexidine Gluconate 3 pack 3 pack UNSCH PRN TOP HYGIENIC CARE; Start at 11:00 Piperacillin Sod/ Tazobactam Sod 50 ml @ 100 mls/hr Q6H IV ; Start 07/11/16 at 14:00; Stop 07/11/16 at 14:00; Status DC Levofloxacin/ Dextrose 150 ml @ 100 mls/hr Q24H IV Last administered on 12:39; Start 07/11/16 at 13:00; Stop 07/13/16 at 11:21; Status DC Piperacillin Sod/ Tazobactam Sod 50 ml @ 100 mls/hr Q6H IV Last administered on 07/13/16 11:08; Start 07/11/16 at 17:00; Stop 07/13/16 at 11:22; Status DC Dexmedetomidine HCl 200 mcg/ Sodium Chloride 52 ml @ 0 mls/hr TITRATE IV Last administered on 07/12/16 04:47; Start 07/11/16 at 14:00; Stop 07/12/16 at 07:55; Status DC Sodium Chloride 2,000 ml @ 0 mls/hr Q0M ONCE IV Last administered on 07/11/16 13:35; Start 07/11/16 at 13:30; Stop 07/11/16 at 13:31; Status DC Potassium Chloride 100 ml @ 50 mls/hr Q2H PRN IV For Potassium 2.8 - 3.2 mEq/L ; Start 07/11/16 at 14:15; Stop 07/15/16 at 10:41; Status DC Potassium Chloride 100 ml @ 50 mls/hr Q2H PRN IV For Potassium 2.8 - 3.2 mEq/ L Last administered on 07/14/16 15:21; Start 07/11/16 at 14:15; Stop 07/15/16 at 10:41; Status DC Potassium Chloride 100 ml @ 25 mls/hr UNSCH PRN IV For Potassium 3.3 - 3.5 mEq /L; Start 07/11/16 at 14:15; Stop 07/15/16 at 10:41; Status DC Potassium Chloride 100 ml @ 50 mls/hr Q2H PRN IV For Potassium 3.3 - 3.5 mEq/ L Last administered on 07/14/16 06:34; Start 07/11/16 at 14:15; Stop 07/15/16 at 10:41; Status DC Magnesium Sulfate/ Sodium Chloride (Magnesium Sulfate Inj/NS Inj) 100 ml @ 50 mls/hr UNSCH PRN IV For Magnesium 0.9 - 1.1 mg/dL; Start 07/11/16 at 14:15; Stop 07/15/16 at 10:41; Status DC Magnesium Oxide 800 mg 800 mg UNSCH PRN PO For Magnesium 1.2 - 1.6 mg/dL; Start 07/11/16 at 14:15; Stop 07/15/16 at 10:41; Status DC Magnesium Sulfate/ Sodium Chloride (Magnesium Sulfate Inj/NS Inj) 100 ml @ 50 mls/hr UNSCH PRN IV For Magnesium 1.2 - 1.6 mg/dL; Start 07/11/16 at 14:15; Stop 07/15/16 at 10:41; Status DC Potassium Phosphate 2000 mg 2,000 mg Q4H PRN PO For Phosphorus < 2.5 mg/dL; Start 07/11/16 at 14:15; Stop 07/15/16 at 10:41; Status DC Sodium Phosphate/ Sodium Chloride (Sodium Phosphate Inj/NS 250 ml Inj) 250 ml @ 42 mls/hr UNSCH PRN IV For Phosphorus < 2.5 mg/dL; Start 07/11/16 at 14:15; Stop 07/15/16 at 10:41; Status DC Potassium Phosphate 2000 mg 2,000 mg UNSCH PRN PO/TUBE SEE LABEL COMMENTS; Start 07/11/16 at 14:15; Stop 07/15/16 at 10:41; Status DC Potassium Phosphate 30 mmol/ Sodium Chloride 260 ml @ 42 mls/hr UNSCH PRN IV SEE LABEL COMMENTS Last administered on 07/12/16t 21:35; Start 07/11/16 at 14:15; Stop 07/15/16 at 10:41; Status DC Pharmacy Profile Note 0 ml @ 0 mls/hr UNSCH OTHER ; Start 07/11/16 at 14:15 Vancomycin HCl/ Sodium Chloride (Vancomycin Inj/ NS 250 ml Inj) 262.5 ml @ 250 mls/hr Q24H IV Last administered on 07/13/16 09:04; Start 07/12/16 at 10:00; Stop 07/13/16 at 12:21; Status DC Miscellaneous Information SPECIFIC LAB TO BE NATALYA... ONCE ONCE .XX ; Start 07/14 at 20:45; Stop 07/14/16 at 20:46; Status DC Potassium Chloride/Sodium Chloride (1/ NS + KCl 20 Meq Inj) 1,000 ml @ 100 mls /hr Q10H IV Last administered on 07/14/16 04:22; Start 07/12/16 at 07:45; Stop 07/14/16 at 16:23; Status DC Enoxaparin Sodium (Lovenox Inj) 40 mg Q24H SQ Last administered on 07/19/16 09 :16; Start 07/12/16 at 08:00 Lorazepam (Ativan Inj) 0.5 mg Q4H PRN IV PUSH agitation Last administered on 14:42; Start 07/12/16 at 08:00 Morphine Sulfate (Morphine Inj) 2 mg Q3H PRN IV PUSH pain 6-10 Last administered on 07/19/16 09:16; Start 07/12/16 at 08:00 Lorazepam (Ativan Inj) 1 mg NOW ONCE IV ; Start 07/12/16 at 18:00; Stop 07/12/16 at 18:01; Status DC Trazodone HCl (Desyrel) 200 mg HS PO Last administered on 07/12/16 23:14; Start 07/12/16 at 22:50; Stop 07/13/16 at 14:17; Status DC Quetiapine Fumarate (SEROquel) 300 mg DAILY PO Last administered on 07/15/16 08:44; Start 07/12/16 at 23:30; Stop 07/15/16 at 10:45; Status DC Quetiapine Fumarate (SEROquel) 300 mg NOW ONCE PO Last administered on 23:30; Start 07/12/16 at 23:30; Stop 07/12/16 at 23:31; Status DC Sodium Chloride 1 spray 1 spray Q4H PRN NASAL NASAL CONGESTION; Start 07/12/16 at 23:45; Status Cancel Vancomycin HCl/ Sodium Chloride (Vancomycin Inj/ NS 250 ml Inj) 262.5 ml @ 262.5 mls/ hr Q18H IV Last administered on 07/15/16 16:10; Start 07/14/16 at 03:00; Stop 07/15/16 at 21:00; Status DC Trazodone HCl (Desyrel) 100 mg HS PO Last administered on 07/18/16 20:42; Start 07/13/16 at 21:00 Miscellaneous Information SPECIFIC LAB TO BE DRAWN:VANCO TROUGH DATE TO BE DR... ONCE ONCE .XX Last administered on 07/15/16 14:45; Start 07/15/16 at 14 :45; Stop 07/15/16 at 14:46; Status DC Quetiapine Fumarate (SEROquel) 300 mg HS PO Last administered on 07/18/16 20: 42; Start 07/16/16 at 21:00 Levothyroxine Sodium (Synthroid) 125 mcg DAILY@0600 PO Last administered on 06:24; Start 07/16/16 at 06:00 Cetirizine HCl (ZyrTEC) 10 mg DAILY PO Last administered on 07/19/16 09:15; Start 07/15/16 at 10:41 Ondansetron HCl 4 mg 4 mg Q6H PRN IV NAUSEA Last administered on 07/18/16 14: 40; Start 07/15/16 at 10:45 Vancomycin HCl 1500 mg/Sodium Chloride 515 ml @ 250 mls/hr Q18H IV Last administered on 07/18/16 14:39; Start 07/16/16 at 09:00; Stop 07/18/16 at 18:00 ; Status DC Lactated Ringer's (Lr 1000 ml Inj) 1,000 ml @ 0 mls/hr Q24H IV ; Start at 02:45 Metoprolol Tartrate (Lopressor) 25 mg RATING EXAMINER PRN PO SEE LABEL COMMENTS; Start 07/16/16 at 02:45; Stop 07/19/16 at 02:44; Status DC Povidone Iodine (Betadine 5% Antisepsis Kit) 1 applic RATING EXAMINER PRN EACH NARE SEE LABEL COMMENTS; Start 07/16/16 at 02:45; Stop 07/19/16 at 02:44; Status DC Chlorhexidine Gluconate (Chlorhexidine 2% Cloth) 3 pack RATING EXAMINER PRN TOPICAL SEE LABEL COMMENTS; Start 07/16/16 at 02:45; Stop 07/19/16 at 02:44; Status DC Miscellaneous Information SPECIFIC LAB TO BE DRAWN:VANCOMYCIN TROUGH DATE TO... ONCE ONCE .XX ; Start 07/20/16 at 02:45; Stop 07/20/16 at 02:46; Status Cancel Bupivacaine HCl (Marcaine Pf 0.5% Inj) 30 ml STK-MED ONCE .ROUTE ; Start at 07:24; Stop 07/17/16 at 07:25; Status DC Lidocaine HCl (Xylocaine 2% Inj) 50 ml STK-MED ONCE .ROUTE Last administered on 07/17/16 14:43; Start 07/17/16 at 07:24; Stop 07/17/16 at 07:25; Status DC Bacitracin (Baciguent Oint) 15 applic STK-MED ONCE .ROUTE ; Start 07/17/16 at 07 :24; Stop 07/17/16 at 07:25; Status DC Gentamicin Sulfate (Gentamicin Inj) 80 mg STK-MED ONCE .ROUTE ; Start 07/17/16 at 07:24; Stop 07/17/16 at 07:25; Status DC Mupirocin (Bactroban 2% Oint) 22 applic STK-MED ONCE .ROUTE ; Start 07/17/16 at 07:25; Stop 07/17/16 at 07:26; Status DC Lidocaine HCl (Xylocaine 1% Inj (50 ml)) 50 ml STK-MED ONCE .ROUTE ; Start 07/17 at 11:51; Stop 07/17/16 at 11:52; Status DC Acetaminophen (Ofirmev Inj) 1,000 mg STK-MED ONCE IV Last administered on 13:03; Start 07/17/16 at 13:01; Stop 07/17/16 at 13:02; Status DC Famotidine (Pepcid Inj) 20 mg STK-MED ONCE .ROUTE Last administered on 13:01; Start 07/17/16 at 13:01; Stop 07/17/16 at 13:02; Status DC Bacitracin (Baciguent Oint) 15 applic STK-MED ONCE .ROUTE ; Start 07/17/16 at 14 :12; Stop 07/17/16 at 14:13; Status DC Midazolam HCl (Versed Inj) 2 mg STK-MED ONCE .ROUTE Last administered on 14:19; Start 07/17/16 at 14:18; Stop 07/17/16 at 14:19; Status DC Dexamethasone Sodium Phosphate (Decadron Inj) 4 mg STK-MED ONCE .ROUTE Last administered on 07/17/16 14:19; Start 07/17/16 at 14:18; Stop 07/17/16 at 14:19 ; Status DC Neomycin/Polymyxin (Neosporin G.u. Irr) 2 ml STK-MED ONCE IR Last administered on 07/17/16 14:43; Start 07/17/16 at 14:43; Stop 07/17/16 at 14:59; Status DC Fentanyl Citrate (fentaNYL INJ) 100 mcg STK-MED ONCE .ROUTE ; Start 07/17/16 at 15:38; Stop 07/17/16 at 15:39; Status DC Miscellaneous Information ALL NURSING DEPARTME... UNSCH PRN .XX SEE LABEL COMMENTS; Start 07/17/16 at 15:37; Stop 07/18/16 at 15:37; Status DC Vancomycin HCl/ Sodium Chloride (Vancomycin Inj/ NS 500 ml Inj) 515 ml @ 257.5 mls/ hr Q24H IV ; Start 07/19/16 at 15:00 Miscellaneous Information SPECIFIC LAB TO BE NATALYA... ONCE ONCE .XX ; Start 07/21 at 14:45; Stop 07/21/16 at 14:46 Metoprolol Tartrate (Lopressor) 12.5 mg Q12HR PRN PO SBP>180, DBP>95; Start at 20:15 A/P Assessment and Plan A/P Acute metabolic encephalopathy/agitated delirium: Resolved Depression -CT of the head is negative, delirium seems to be secondary to metabolic encephalopathy-now resolved -Patient does take Seroquel and trazodone. There is a history of depression in the chart. -Trazodone was decreased to 100 mg qhs. -Neurology following. EEG is abnormal. Follow-up EEG improved. No seizure activities. Severe sepsis on presentation: Probable source, Left middle finger cellulitis -s/p I/D of the left middle finger and bone biopsy - Placed on vancomycin. Zosyn Dced - Left hand x-ray -moderate osteoarthritis. Unable to get MRI due to morphine pump - Follow path and cultures. -hand surgery and ID following. Pulmonary edema: Resolved Probable atypical pneumonia Obstructive sleep apnea -Nasal cannula oxygen -DuoNeb every 6 hours scheduled and when necessary -CT chest shows pulmonary edema, clinically appears noncardiogenic - Currently on Vancomycin per ID - 2-D echocardiogram shows preserved EF. Chronic back pain: - Patient follows with pain management. She has a morphine pump. As far as she knows it is functioning. - Limit additional narcotics. Lactic acidemia -s/p Normal saline IV fluids 5 L bolus. Acute on Chronic kidney disease Rhabdomyolysis -Resolved with hydration -Remove Carney. PROPH: -Bilateral lower extremity SCDs. Lovenox 40 mg sq daily. Discharge Planning when cleared by hand surgery and ID. Kaylynn Tejada MD Jul 19, 2016 11:32
[2016-07-19 12:00] VITALS: BP 147/90; PULSE 83; RESP 16; TEMP 98; O2SAT 96
--- NOTE | 2016-07-19 12:29 | HHI.PR ---
Subjective Remarks Covering for Dr. Arshad complains of mild pain over the left middle finger no fever no tingling or numbness Objective Vital Signs Date Time Temp Pulse Resp B/P Pulse Ox O2 Delivery O2 Flow Rate FiO2 07/19/16 08:00 97.5 82 12 134/78 94 07/18/16 21:25 18 07/18/16 20:00 96.8 85 20 175/90 96 07/18/16 16:00 97.9 95 18 166/91 97 07/18/16 13:22 96 21 I/O 07/18/16 07/18/16 07/18/16 07/19/16 07/19/16 07/19/16 07:00 15:00 23:00 07:00 15:00 23:00 Intake Total 1220 ml 240 ml 240 ml 480 ml Output Total 600 ml Balance 1220 ml -360 ml 240 ml 480 ml Intake Oral 720 ml 240 ml 240 ml 480 ml IV Total 500 ml Output Urine Total 600 ml # Voids 5 4 3 # Bowel Movements 1 1 left middle finger: dressing in place. examination after removal of dressing reveals surgical incision site clean and dry surrounding swelling and erythema noted no drainage range of motion limited and painful cultures: negative to date WBC count: normal Result Diagram: 07/18/16 0406 07/19/16 0335 Assessment and Plan Assessment and Plan 61 year old female s/p bone/joint biopsy left middle finger POD 2 Plan: dressing changed keep the part elevated range of motion exercises continue with antibiotics based on ID recommendations. Dr. Arshad will follow Ilan Hutson MD Jul 19, 2016 12:29
[2016-07-19 13:12] VITALS: O2SAT 94
[2016-07-19] MEDS: VANCOMYCIN 1,500 MG/NS 500 ML IV SCH ×2 (13:58)
[2016-07-19] MEDS: ACETAMINOPHEN/HYDROcodone 325 MG/5 MG TAB PO PRN ×2 (13:59→18:05)
[2016-07-19 16:00] VITALS: BP 149/89; PULSE 81; RESP 16; TEMP 97.8; O2SAT 97
[2016-07-19] MEDS: ONDANSETRON HCL 4 MG/2 ML VIAL IV PRN (16:35)
[2016-07-19 20:00] VITALS: BP 188/98; PULSE 83; RESP 20; TEMP 97.8; O2SAT 98
[2016-07-19] MEDS: ASPIRIN EC 81 MG TABEC PO SCH (20:25)
[2016-07-19] MEDS: QUEtiapine FUMARATE 300 MG TAB PO SCH (20:25)
[2016-07-19] MEDS: traZODone HCL 100 MG TAB PO SCH (20:25)
[2016-07-19 21:35] VITALS: O2SAT 98
[2016-07-20] VITALS: BP 149/86; PULSE 80; RESP 20; TEMP 98.2; O2SAT 97
[2016-07-20] MEDS: LACTATED RINGER'S 1000 ML INJ 1,000 ML IV SCH (02:45)
[2016-07-20] MEDS ORDERED: PHARMACY ORDERED LAB ONE (02:45)
[2016-07-20] MEDS: LEVOTHYROXINE SODIUM 125 MCG TAB PO SCH (05:59)
[2016-07-20] MEDS: ACETAMINOPHEN/HYDROcodone 325 MG/5 MG TAB PO PRN ×4 (06:00→23:55)
[2016-07-20 07:08] VITALS: O2SAT 98
[2016-07-20 08:00] VITALS: BP 149/77; PULSE 82; RESP 10; TEMP 97.8; O2SAT 94
[2016-07-20] MEDS: ENOXAPARIN SODIUM 40 MG/0.4 ML SYRINGE SQ SCH (08:52)
[2016-07-20] MEDS: CETIRIZINE HCL 10 MG TAB PO SCH (08:53)
[2016-07-20] MEDS: SODIUM CHLORIDE 0.9% FLUSH 10 ML FLUSH IV FLUSH SCH ×2 (08:53→21:00)
--- NOTE | 2016-07-20 10:30 | HHI.PR ---
Subjective Remarks in no acute distress. pain to the left hand is fairly controlled. says that she had a ' black stool '. no fever. Objective Vitals Vital Signs Date Time Temp Pulse Resp B/P Pulse Ox O2 Delivery O2 Flow Rate FiO2 07/20/16 08:00 97.8 82 10 149/77 94 07/20/16 07:08 98 21 07/20/16 00:00 98.2 80 20 149/86 97 07/19/16 21:35 98 21 07/19/16 20:00 97.8 83 20 188/98 98 07/19/16 16:00 97.8 81 16 149/89 97 07/19/16 13:12 94 21 07/19/16 12:00 98.0 83 16 147/90 96 I/O 07/19/16 07/19/16 07/19/16 07/20/16 07/20/16 07/20/16 07:00 15:00 23:00 07:00 15:00 23:00 Intake Total 480 ml 720 ml 480 ml 480 ml Output Total 700 ml 400 ml 650 ml Balance 480 ml 20 ml 80 ml -170 ml Intake Oral 480 ml 720 ml 480 ml 480 ml IV Total 0 ml Output Urine Total 700 ml 400 ml 650 ml # Voids 3 # Bowel Movements 2 0 0 Result Diagram: 07/18/16 0406 07/19/16 0335 Imaging Last Impressions Chest X-Ray 07/12/16 0600 Signed Impressions: Service Date/Time: Tuesday, July 12, 2016 05:27 - CONCLUSION: Prominence of the interstitium which could represent some mild edema. Bry Garrett MD Chest CT 07/11/16 1115 Signed Impressions: Service Date/Time: Monday, July 11, 2016 11:21 - CONCLUSION: No evidence of infection. Findings consistent with congestive heart failure and pulmonary edema. This is a new finding as compared to the prior CT. Richa Luna MD Abdomen/Pelvis CT 07/11/16 1115 Signed Impressions: Service Date/Time: Monday, July 11, 2016 11:21 - CONCLUSION: No evidence of inflammatory process within the abdomen or pelvis. Stable areas of renal cortical thinning consistent with prior infection and scar. Stable diverticulosis. Richa Luna MD Head CT 07/11/16 0858 Signed Impressions: Service Date/Time: Monday, July 11, 2016 09:27 - CONCLUSION: Normal examination. Richa Luna MD Hand X-Ray 07/11/16 0000 Signed Impressions: Service Date/Time: Monday, July 11, 2016 14:36 - CONCLUSION: Moderate primary osteoarthritis involving in the third DIP joint. Porfirio Barrera MD Objective Remarks GENERAL: This is a well-nourished, well-developed patient, in no apparent distress. CARDIOVASCULAR: Regular rate and regular rhythm without murmurs, gallops, or rubs. RESPIRATORY: Clear to auscultation. Breath sounds equal bilaterally. No wheezes , rales, or rhonchi. GASTROINTESTINAL: Abdomen soft, non-tender, nondistended. Normal, active bowel sounds MUSCULOSKELETAL:left hand covered with clean dressing. NEURO: Alert & Oriented x4 to person, place, time, situation. Moves all ext x4 Procedures I/D of the left middle finger/ bone biopsy Medications and IVs Current Medications Haloperidol Lactate (Haldol Inj) 5 mg STK-MED ONCE .ROUTE ; Start 07/11/16 at 08: 51; Stop 07/11/16 at 08:52; Status DC Lorazepam (Ativan Inj) 2 mg ONCE ONCE IM ; Start 07/11/16 at 09:00; Stop at 09:01; Status DC Haloperidol Lactate (Haldol Inj) 5 mg ONCE ONCE IM ; Start 07/11/16 at 09:00; Stop 07/11/16 at 09:01; Status DC Lorazepam 2 mg 2 mg STK-MED ONCE .ROUTE ; Start 07/11/16 at 08:51; Stop 07/11/16 at 08:52; Status DC Vancomycin HCl 1000 mg/Sodium Chloride 250 ml @ 250 mls/hr ONCE ONCE IV Last administered on 07/11/16t 11:11; Start 07/11/16 at 10:45; Stop 07/11/16 at 11:44; Status DC Piperacillin Sod/ Tazobactam Sod (Zosyn 3.375 Gm Premix) 50 ml @ 100 mls/hr ONCE ONCE IV Last administered on 07/11/16t 11:11; Start 07/11/16 at 10:45; Stop 07/11/16 at 11:14; Status DC Aspirin 81 mg 81 mg HS PO Last administered on 07/19/16 20:25; Start 07/11/16 at 21:00 Sodium Chloride 1,000 ml @ 999 mls/hr BOLUS ONCE IV Last administered on 11:14; Start 07/11/16 at 11:00; Stop 07/11/16 at 12:00; Status DC Sodium Chloride 1,000 ml @ 999 mls/hr BOLUS ONCE IV Last administered on 11:13; Start 07/11/16 at 11:00; Stop 07/11/16 at 12:00; Status DC Sodium Chloride 1,000 ml @ 999 mls/hr BOLUS ONCE IV Last administered on 11:13; Start 07/11/16 at 11:00; Stop 07/11/16 at 12:00; Status DC Potassium Chloride 100 ml @ 50 mls/hr BOLUS ONCE IV Last administered on 12:45; Start 07/11/16 at 11:00; Stop 07/11/16 at 12:59; Status DC Sodium Chloride (NS 1000 ml Inj) 1,000 ml @ 150 mls/hr Q6H40M IV Last administered on 07/11/16 23:22; Start 07/11/16 at 10:59; Stop 07/12/16 at 07:46; Status DC Sodium Chloride (NS Flush) 2 ml BID IV FLUSH Last administered on 07/20/16 08: 53; Start 07/11/16 at 21:00 Acetaminophen (Tylenol) 650 mg Q6H PRN PO PAIN 1-4 AND/OR FEVER >101F Last administered on 07/16/16 20:09; Start 07/11/16 at 11:00 Pantoprazole Sodium (Protonix Inj) 40 mg DAILY IV ; Start 07/12/16 at 09:00; Stop 07/12/16 at 09:00; Status DC Albuterol/ Ipratropium (Duoneb Neb) 1 ampule Q6HR NEB INH Last administered on 07/14/16 22:01; Start 07/11/16 at 11:00; Stop 07/15/16 at 11:02; Status DC Albuterol/ Ipratropium (Duoneb Neb) 1 ampule Q4HR NEB PRN INH WHEEZING Last administered on 07/15/16 12:45; Start 07/11/16 at 11:00 Miscellaneous Information 1 Q361D XX Last administered on 07/11/16 11:00; Start 07/11/16 at 11:00 Chlorhexidine Gluconate (Chlorhexidine 2% Cloth) Taper DAILY@04 TOP Last administered on 07/14/16 04:00; Start 07/12/16 at 04:00; Stop 07/08/17 at 03:59 Chlorhexidine Gluconate 3 pack 3 pack UNSCH PRN TOP HYGIENIC CARE; Start at 11:00 Piperacillin Sod/ Tazobactam Sod 50 ml @ 100 mls/hr Q6H IV ; Start 07/11/16 at 14:00; Stop 07/11/16 at 14:00; Status DC Levofloxacin/ Dextrose 150 ml @ 100 mls/hr Q24H IV Last administered on 12:39; Start 07/11/16 at 13:00; Stop 07/13/16 at 11:21; Status DC Piperacillin Sod/ Tazobactam Sod 50 ml @ 100 mls/hr Q6H IV Last administered on 07/13/16 11:08; Start 07/11/16 at 17:00; Stop 07/13/16 at 11:22; Status DC Dexmedetomidine HCl 200 mcg/ Sodium Chloride 52 ml @ 0 mls/hr TITRATE IV Last administered on 07/12/16 04:47; Start 07/11/16 at 14:00; Stop 07/12/16 at 07:55; Status DC Sodium Chloride 2,000 ml @ 0 mls/hr Q0M ONCE IV Last administered on 07/11/16 13:35; Start 07/11/16 at 13:30; Stop 07/11/16 at 13:31; Status DC Potassium Chloride 100 ml @ 50 mls/hr Q2H PRN IV For Potassium 2.8 - 3.2 mEq/L ; Start 07/11/16 at 14:15; Stop 07/15/16 at 10:41; Status DC Potassium Chloride 100 ml @ 50 mls/hr Q2H PRN IV For Potassium 2.8 - 3.2 mEq/ L Last administered on 07/14/16 15:21; Start 07/11/16 at 14:15; Stop 07/15/16 at 10:41; Status DC Potassium Chloride 100 ml @ 25 mls/hr UNSCH PRN IV For Potassium 3.3 - 3.5 mEq /L; Start 07/11/16 at 14:15; Stop 07/15/16 at 10:41; Status DC Potassium Chloride 100 ml @ 50 mls/hr Q2H PRN IV For Potassium 3.3 - 3.5 mEq/ L Last administered on 07/14/16t 06:34; Start 07/11/16 at 14:15; Stop 07/15/16 at 10:41; Status DC Magnesium Sulfate/ Sodium Chloride (Magnesium Sulfate Inj/NS Inj) 100 ml @ 50 mls/hr UNSCH PRN IV For Magnesium 0.9 - 1.1 mg/dL; Start 07/11/16 at 14:15; Stop 07/15/16 at 10:41; Status DC Magnesium Oxide 800 mg 800 mg UNSCH PRN PO For Magnesium 1.2 - 1.6 mg/dL; Start 07/11/16 at 14:15; Stop 07/15/16 at 10:41; Status DC Magnesium Sulfate/ Sodium Chloride (Magnesium Sulfate Inj/NS Inj) 100 ml @ 50 mls/hr UNSCH PRN IV For Magnesium 1.2 - 1.6 mg/dL; Start 07/11/16 at 14:15; Stop 07/15/16 at 10:41; Status DC Potassium Phosphate 2000 mg 2,000 mg Q4H PRN PO For Phosphorus < 2.5 mg/dL; Start 07/11/16 at 14:15; Stop 07/15/16 at 10:41; Status DC Sodium Phosphate/ Sodium Chloride (Sodium Phosphate Inj/NS 250 ml Inj) 250 ml @ 42 mls/hr UNSCH PRN IV For Phosphorus < 2.5 mg/dL; Start 07/11/16 at 14:15; Stop 07/15/16 at 10:41; Status DC Potassium Phosphate 2000 mg 2,000 mg UNSCH PRN PO/TUBE SEE LABEL COMMENTS; Start 07/11/16 at 14:15; Stop 07/15/16 at 10:41; Status DC Potassium Phosphate 30 mmol/ Sodium Chloride 260 ml @ 42 mls/hr UNSCH PRN IV SEE LABEL COMMENTS Last administered on 07/12/16t 21:35; Start 07/11/16 at 14:15; Stop 07/15/16 at 10:41; Status DC Pharmacy Profile Note 0 ml @ 0 mls/hr UNSCH OTHER ; Start 07/11/16 at 14:15 Vancomycin HCl/ Sodium Chloride (Vancomycin Inj/ NS 250 ml Inj) 262.5 ml @ 250 mls/hr Q24H IV Last administered on 07/13/16 09:04; Start 07/12/16 at 10:00; Stop 07/13/16 at 12:21; Status DC Miscellaneous Information SPECIFIC LAB TO BE NATALYA... ONCE ONCE .XX ; Start 07/14 at 20:45; Stop 07/14/16 at 20:46; Status DC Potassium Chloride/Sodium Chloride (1/2 NS + KCl 20 Meq Inj) 1,000 ml @ 100 mls /hr Q10H IV Last administered on 07/14/16 04:22; Start 07/12/16 at 07:45; Stop 07/14/16 at 16:23; Status DC Enoxaparin Sodium (Lovenox Inj) 40 mg Q24H SQ Last administered on 07/20/16 08 :52; Start 07/12/16 at 08:00 Lorazepam (Ativan Inj) 0.5 mg Q4H PRN IV PUSH agitation Last administered on 14:42; Start 07/12/16 at 08:00 Morphine Sulfate (Morphine Inj) 2 mg Q3H PRN IV PUSH BREAKTHROUGH PAIN Last administered on 07/19/16 21:55; Start 07/12/16 at 08:00 Lorazepam (Ativan Inj) 1 mg NOW ONCE IV ; Start 07/12/16 at 18:00; Stop 07/12/16 at 18:01; Status DC Trazodone HCl (Desyrel) 200 mg HS PO Last administered on 07/12/16 23:14; Start 07/12/16 at 22:50; Stop 07/13/16 at 14:17; Status DC Quetiapine Fumarate (SEROquel) 300 mg DAILY PO Last administered on 07/15/16 08:44; Start 07/12/16 at 23:30; Stop 07/15/16 at 10:45; Status DC Quetiapine Fumarate (SEROquel) 300 mg NOW ONCE PO Last administered on 23:30; Start 07/12/16 at 23:30; Stop 07/12/16 at 23:31; Status DC Sodium Chloride 1 spray 1 spray Q4H PRN NASAL NASAL CONGESTION; Start 07/12/16 at 23:45; Status Cancel Vancomycin HCl/ Sodium Chloride (Vancomycin Inj/ NS 250 ml Inj) 262.5 ml @ 262.5 mls/ hr Q18H IV Last administered on 07/15/16 16:10; Start 07/14/16 at 03:00; Stop 07/15/16 at 21:00; Status DC Trazodone HCl (Desyrel) 100 mg HS PO Last administered on 07/19/16 20:25; Start 07/13/16 at 21:00 Miscellaneous Information SPECIFIC LAB TO BE DRAWN:VANCO TROUGH DATE TO BE DR... ONCE ONCE .XX Last administered on 07/15/16 14:45; Start 07/15/16 at 14 :45; Stop 07/15/16 at 14:46; Status DC Quetiapine Fumarate (SEROquel) 300 mg HS PO Last administered on 07/19/16 20: 25; Start 07/16/16 at 21:00 Levothyroxine Sodium (Synthroid) 125 mcg DAILY@0600 PO Last administered on 05:59; Start 07/16/16 at 06:00 Cetirizine HCl (ZyrTEC) 10 mg DAILY PO Last administered on 07/20/16 08:53; Start 07/15/16 at 10:41 Ondansetron HCl 4 mg 4 mg Q6H PRN IV NAUSEA Last administered on 07/19/16 16: 35; Start 07/15/16 at 10:45 Vancomycin HCl 1500 mg/Sodium Chloride 515 ml @ 250 mls/hr Q18H IV Last administered on 07/18/16 14:39; Start 07/16/16 at 09:00; Stop 07/18/16 at 18:00 ; Status DC Lactated Ringer's (Lr 1000 ml Inj) 1,000 ml @ 0 mls/hr Q24H IV ; Start at 02:45 Metoprolol Tartrate (Lopressor) 25 mg JUNIOR DESIGNER PRN PO SEE LABEL COMMENTS; Start 07/16/16 at 02:45; Stop 07/19/16 at 02:44; Status DC Povidone Iodine (Betadine 5% Antisepsis Kit) 1 applic JUNIOR DESIGNER PRN EACH NARE SEE LABEL COMMENTS; Start 07/16/16 at 02:45; Stop 07/19/16 at 02:44; Status DC Chlorhexidine Gluconate (Chlorhexidine 2% Cloth) 3 pack JUNIOR DESIGNER PRN TOPICAL SEE LABEL COMMENTS; Start 07/16/16 at 02:45; Stop 07/19/16 at 02:44; Status DC Miscellaneous Information SPECIFIC LAB TO BE DRAWN:VANCOMYCIN TROUGH DATE TO... ONCE ONCE .XX ; Start 07/20/16 at 02:45; Stop 07/20/16 at 02:46; Status Cancel Bupivacaine HCl (Marcaine Pf 0.5% Inj) 30 ml STK-MED ONCE .ROUTE ; Start at 07:24; Stop 07/17/16 at 07:25; Status DC Lidocaine HCl (Xylocaine 2% Inj) 50 ml STK-MED ONCE .ROUTE Last administered on 07/17/16t 14:43; Start 07/17/16 at 07:24; Stop 07/17/16 at 07:25; Status DC Bacitracin (Baciguent Oint) 15 applic STK-MED ONCE .ROUTE ; Start 07/17/16 at 07 :24; Stop 07/17/16 at 07:25; Status DC Gentamicin Sulfate (Gentamicin Inj) 80 mg STK-MED ONCE .ROUTE ; Start 07/17/16 at 07:24; Stop 07/17/16 at 07:25; Status DC Mupirocin (Bactroban 2% Oint) 22 applic STK-MED ONCE .ROUTE ; Start 07/17/16 at 07:25; Stop 07/17/16 at 07:26; Status DC Lidocaine HCl (Xylocaine 1% Inj (50 ml)) 50 ml STK-MED ONCE .ROUTE ; Start 07/17 at 11:51; Stop 07/17/16 at 11:52; Status DC Acetaminophen (Ofirmev Inj) 1,000 mg STK-MED ONCE IV Last administered on t 13:03; Start 07/17/16 at 13:01; Stop 07/17/16 at 13:02; Status DC Famotidine (Pepcid Inj) 20 mg STK-MED ONCE .ROUTE Last administered on 13:01; Start 07/17/16 at 13:01; Stop 07/17/16 at 13:02; Status DC Bacitracin (Baciguent Oint) 15 applic STK-MED ONCE .ROUTE ; Start 07/17/16 at 14 :12; Stop 07/17/16 at 14:13; Status DC Midazolam HCl (Versed Inj) 2 mg STK-MED ONCE .ROUTE Last administered on 14:19; Start 07/17/16 at 14:18; Stop 07/17/16 at 14:19; Status DC Dexamethasone Sodium Phosphate (Decadron Inj) 4 mg STK-MED ONCE .ROUTE Last administered on 07/17/16 14:19; Start 07/17/16 at 14:18; Stop 07/17/16 at 14:19 ; Status DC Neomycin/Polymyxin (Neosporin G.u. Irr) 2 ml STK-MED ONCE IR Last administered on 07/17/16 14:43; Start 07/17/16 at 14:43; Stop 07/17/16 at 14:59; Status DC Fentanyl Citrate (fentaNYL INJ) 100 mcg STK-MED ONCE .ROUTE ; Start 07/17/16 at 15:38; Stop 07/17/16 at 15:39; Status DC Miscellaneous Information ALL NURSING DEPARTME... UNSCH PRN .XX SEE LABEL COMMENTS; Start 07/17/16 at 15:37; Stop 07/18/16 at 15:37; Status DC Vancomycin HCl/ Sodium Chloride (Vancomycin Inj/ NS 500 ml Inj) 515 ml @ 257.5 mls/ hr Q24H IV Last administered on 07/19/16 13:58; Start 07/19/16 at 15:00 Miscellaneous Information SPECIFIC LAB TO BE NATALYA... ONCE ONCE .XX ; Start 07/21 at 14:45; Stop 07/21/16 at 14:46 Metoprolol Tartrate (Lopressor) 12.5 mg Q12HR PRN PO SBP>180, DBP>95; Start at 20:15 Acetaminophen/ Hydrocodone Bitart (Holcomb 5-325 Mg) 1 tab Q4H PRN PO PAIN 6-10 Last administered on 4/17/17at 06:00; Start 07/19/16 at 11:45 A/P Assessment and Plan A/P Acute metabolic encephalopathy/agitated delirium: Resolved Depression -CT of the head is negative, delirium seems to be secondary to metabolic encephalopathy-now resolved -Patient does take Seroquel and trazodone. There is a history of depression in the chart. -Trazodone was decreased to 100 mg qhs. -Neurology following. EEG is abnormal. Follow-up EEG improved. No seizure activities. Severe sepsis on presentation: Probable source, Left middle finger cellulitis -s/p I/D of the left middle finger and bone biopsy - Placed on vancomycin. - Left hand x-ray -moderate osteoarthritis. Unable to get MRI due to morphine pump - Follow path and cultures. -hand surgery and ID following. Pulmonary edema: Resolved Probable atypical pneumonia Obstructive sleep apnea -neb treatment -CT chest shows pulmonary edema, clinically appears noncardiogenic - Currently on Vancomycin per ID - 2-D echocardiogram shows preserved EF. Chronic back pain: - Patient follows with pain management. She has a morphine pump. As far as she knows it is functioning. - Limit additional narcotics. Lactic acidemia -s/p Normal saline IV fluids 5 L bolus. Acute on Chronic kidney disease Rhabdomyolysis -Resolved with hydration questionable melena check the stool for blood monitor H/H hold lovenox for now PROPH: -Bilateral lower extremity SCDs. Lovenox on hold as noted above. Kaylynn Tejada MD Jul 20, 2016 10:30
[2016-07-20 12:00] VITALS: BP 158/92; PULSE 81; RESP 14; TEMP 97.8; O2SAT 98
[2016-07-20] MEDS: ONDANSETRON HCL 4 MG/2 ML VIAL IV PRN (14:04)
[2016-07-20] MEDS: MORPHINE SULFATE 4 MG/ML INJ IV PUSH PRN (14:04)
--- NOTE | 2016-07-20 14:57 | HHI.IDPN ---
Subjective Subjective Remarks is a 61 y/o CF with h/o HTN, high cholesterol, hypothyroidism, GERD, morphine pump intrathecal for chronic back pain brought in by EMS for altered mental status. Patient's mother called EMS this morning because patient was pacing around at her place. This remains to be confirmed as Mom cannot be reached. Apparently was cooperative in the beginning and then became combative on the way to the ED. No known psychiatric history, but takes trazodone and Seroquel. Patient is on a lot of medications that can affect mentation including pain medication pump. Concern for polypharmacy. Recently placed on clindamycin for a left middle finger cellulitis. Also patient on prednisone unknown duration and indication. Lab work showed initially a lactate of 11.8 but repeat was only 2.2. White count was normal potassium was 3 creatinine was 1.5. TSH was normal CK was elevated at 1160. Chest x-ray and CT of the chest showed pulmonary edema. CT brain did not show any acute findings. ID following for left middle finger cellulitis. Overnight events reviewed. No fever No rash No diarrhea More alert. Antibiotics Vanco IV Lines Line sites with no e.o infection Past Medical History reviewed Allergies: Coded Allergies: Bactrim (Verified Allergy, Severe, 06/11/16) Codeine (Verified Allergy, Severe, NAUSEA, 06/11/16) Flexeril (Verified Allergy, Severe, 06/11/16) Paxil (Verified Allergy, Severe, 06/11/16) Objective . Vital Signs Date Time Temp Pulse Resp B/P Pulse Ox O2 Delivery O2 Flow Rate FiO2 07/20/16 12:00 97.8 81 14 158/92 98 07/20/16 08:00 97.8 82 10 149/77 94 07/20/16 07:08 98 21 07/20/16 00:00 98.2 80 20 149/86 97 07/19/16 21:35 98 21 07/19/16 20:00 97.8 83 20 188/98 98 07/19/16 16:00 97.8 81 16 149/89 97 07/19/16 07/19/16 07/20/16 15:00 23:00 07:00 Intake Total 720 ml 480 ml 480 ml Output Total 700 ml 400 ml 650 ml Balance 20 ml 80 ml -170 ml Intake Oral 720 ml 480 ml 480 ml IV Total 0 ml Output Urine Total 700 ml 400 ml 650 ml # Bowel Movements 2 0 0 . Laboratory Tests Test 07/20/16 11:45 Hemoglobin 10.7 GM/DL Hematocrit 33.0 % Laboratory Tests Test 07/19/16 03:35 Creatinine 1.15 MG/DL Estimat Glomerular Filtration 48 ML/MIN Rate Imaging Last Impressions Chest X-Ray 07/12/16 0600 Signed Impressions: Service Date/Time: Tuesday, July 12, 2016 05:27 - CONCLUSION: Prominence of the interstitium which could represent some mild edema. Bry Garrett MD Chest CT 07/11/16 1115 Signed Impressions: Service Date/Time: Monday, July 11, 2016 11:21 - CONCLUSION: No evidence of infection. Findings consistent with congestive heart failure and pulmonary edema. This is a new finding as compared to the prior CT. Richa Luna MD Abdomen/Pelvis CT 07/11/16 1115 Signed Impressions: Service Date/Time: Monday, July 11, 2016 11:21 - CONCLUSION: No evidence of inflammatory process within the abdomen or pelvis. Stable areas of renal cortical thinning consistent with prior infection and scar. Stable diverticulosis. Richa Luna MD Head CT 07/11/16 0858 Signed Impressions: Service Date/Time: Monday, July 11, 2016 09:27 - CONCLUSION: Normal examination. Richa Luna MD Hand X-Ray 07/11/16 0000 Signed Impressions: Service Date/Time: Monday, July 11, 2016 14:36 - CONCLUSION: Moderate primary osteoarthritis involving in the third DIP joint. Porfirio Barrera MD Physical Exam GENERAL: Obese CF patient, in no apparent distress. SKIN: No rashes, ecchymoses or lesions. Cool and dry. HEAD: Atraumatic. Normocephalic. No temporal or scalp tenderness. EYES: Pupils equal round and reactive. Extraocular motions intact. No scleral icterus. No injection or drainage. ENT: Nose without bleeding, purulent drainage or septal hematoma. Throat without erythema, tonsillar hypertrophy or exudate. Uvula midline. Airway patent. NECK: Trachea midline. Supple, nontender, no neck stiffness. Pain on flexion of neck but complains of pain when touched in most joints and body parts. CARDIOVASCULAR: RRR RESPIRATORY: Clear to auscultation. Breath sounds equal bilaterally. GASTROINTESTINAL: Abdomen soft, non-tender, nondistended. Morphine pump site with no e/o infection. MUSCULOSKELETAL: Bilateral LE with no edema or joint swelling. Left 3rd finger in dressing. NEUROLOGICAL: Awake and alert. Grossly non focal. Psych: on Precedex appears calm and cooperative now. IV line sites with no e.o infection. Assessment & Plan Remarks Possible Sepsis (fever, tachycardia, elevated lactic acid on admission) with acute encephalopathy resolved, Left 3rd finger cellulitis ? osteomyelitis. Aspiration risk Acute metabolic encephalopathy: polypharmacy, ? overdose, sepsis. resolved. Elevated lactic acid: prerenal, sepsis, cardiac (ECHO pending) Intrathecal morphine pump at risk for meningitis. Recs: Continue Vanco IV (target 10-15 for cellulitis) No PICC till cleared by ID. await path for bone to decide IV vs oral antibiotics and length on DC. Please call me with bone path results. Amanda Ryder MD Jul 20, 2016 14:57
[2016-07-20] MEDS: VANCOMYCIN 1,500 MG/NS 500 ML IV SCH ×2 (15:13)
[2016-07-20 16:00] VITALS: BP 149/79; PULSE 84; RESP 16; TEMP 98.8; O2SAT 98
[2016-07-20] MEDS: CHLORHEXIDINE GLUCONATE 2 % 1 PACK (2 CLOTHS) TOP SCH (19:24)
[2016-07-20 20:00] VITALS: BP 177/90; PULSE 85; RESP 20; TEMP 100.2; O2SAT 99
[2016-07-20] MEDS: ASPIRIN EC 81 MG TABEC PO SCH (20:10)
[2016-07-20] MEDS: QUEtiapine FUMARATE 300 MG TAB PO SCH (20:10)
[2016-07-20] MEDS: traZODone HCL 100 MG TAB PO SCH (20:11)
--- NOTE | 2016-07-20 21:51 | PD.ORT.PN ---
Subjective Subjective Remarks Patient reports moderate pain left middle finger. Denies paresthesias. Objective Vitals Vital Signs Date Time Temp Pulse Resp B/P Pulse Ox O2 Delivery O2 Flow Rate FiO2 07/20/16 16:00 98.8 84 16 149/79 98 07/20/16 12:00 97.8 81 14 158/92 98 07/20/16 08:00 97.8 82 10 149/77 94 07/20/16 07:08 98 21 07/20/16 00:00 98.2 80 20 149/86 97 I/O 07/19/16 07/19/16 07/19/16 07/20/16 07/20/16 07/20/16 07:00 15:00 23:00 07:00 15:00 23:00 Intake Total 480 ml 720 ml 480 ml 480 ml 860 ml Output Total 700 ml 400 ml 650 ml 400 ml Balance 480 ml 20 ml 80 ml -170 ml 460 ml Intake Oral 480 ml 720 ml 480 ml 480 ml 860 ml IV Total 0 ml 0 ml Output Urine Total 700 ml 400 ml 650 ml 400 ml # Voids 3 # Bowel Movements 2 0 0 0 Result Diagram: 07/20/16 1145 07/19/16 0335 Objective Remarks Dressing in place, <2 sec capillary refill to finger, able to fire fdp,erythema distal to DIP joint, no purulence, pain with finger extension, sitlt radial and ulnar side finger Assessment & Plan Assessment and Plan 61yF with several month history of pain and erythema left middle finger, concern for osteomyelitis -Patient refused MRI -No gross purulence intraop, cultures sent from superficial as well as DIP joint , pathology also sent, cultures and pathology still pending -Daily dressing change, continue to follow Margarita Arshad MD Jul 20, 2016 21:51
[2016-07-21] VITALS: BP 150/82; PULSE 82; RESP 18; TEMP 99; O2SAT 98
[2016-07-21] MEDS: ACETAMINOPHEN 325 MG TAB PO PRN (01:34)
[2016-07-21] MEDS: LACTATED RINGER'S 1000 ML INJ 1,000 ML IV SCH ×3 (02:45→16:39)
[2016-07-21] MEDS: MORPHINE SULFATE 4 MG/ML INJ IV PUSH PRN ×3 (02:51→23:51)
[2016-07-21] MEDS: LEVOTHYROXINE SODIUM 125 MCG TAB PO SCH (05:32)
[2016-07-21 08:00] VITALS: BP 163/91; PULSE 89; RESP 18; TEMP 96.8; O2SAT 92
[2016-07-21] MEDS: ACETAMINOPHEN/HYDROcodone 325 MG/5 MG TAB PO PRN ×3 (08:38→21:49)
[2016-07-21] MEDS: CETIRIZINE HCL 10 MG TAB PO SCH (08:38)
[2016-07-21] MEDS: SODIUM CHLORIDE 0.9% FLUSH 10 ML FLUSH IV FLUSH SCH ×2 (08:39→21:00)
--- NOTE | 2016-07-21 10:18 | HHI.PR ---
Subjective Remarks In the bed. Says she feels tired. Had pain in her finger with slight palpation and movement. Says she has intermittent pain in her finger, throbbing at times and nagging pain. No fevers or chills overnight. denies chest pain or sob. No seizures. Objective Vitals Vital Signs Date Time Temp Pulse Resp B/P Pulse Ox O2 Delivery O2 Flow Rate FiO2 07/21/16 08:00 96.8 89 18 163/91 92 07/21/16 00:00 99.0 82 18 150/82 98 07/20/16 20:00 100.2 85 20 177/90 99 07/20/16 16:00 98.8 84 16 149/79 98 07/20/16 12:00 97.8 81 14 158/92 98 I/O 07/20/16 07/20/16 07/20/16 07/21/16 07/21/16 07/21/16 07:00 15:00 23:00 07:00 15:00 23:00 Intake Total 480 ml 860 ml 0 ml 240 ml Output Total 650 ml 400 ml 550 ml Balance -170 ml 460 ml 0 ml -310 ml Intake Oral 480 ml 860 ml 240 ml IV Total 0 ml 0 ml 0 ml 0 ml Output Urine Total 650 ml 400 ml 550 ml # Bowel Movements 0 0 0 Result Diagram: 07/20/16 1145 07/21/16 0531 Imaging Last Impressions Chest X-Ray 07/12/16 0600 Signed Impressions: Service Date/Time: Tuesday, July 12, 2016 05:27 - CONCLUSION: Prominence of the interstitium which could represent some mild edema. Bry Garrett MD Chest CT 07/11/16 1115 Signed Impressions: Service Date/Time: Monday, July 11, 2016 11:21 - CONCLUSION: No evidence of infection. Findings consistent with congestive heart failure and pulmonary edema. This is a new finding as compared to the prior CT. Richa Luna MD Abdomen/Pelvis CT 07/11/16 1115 Signed Impressions: Service Date/Time: Monday, July 11, 2016 11:21 - CONCLUSION: No evidence of inflammatory process within the abdomen or pelvis. Stable areas of renal cortical thinning consistent with prior infection and scar. Stable diverticulosis. Richa Luna MD Head CT 07/11/16 0858 Signed Impressions: Service Date/Time: Monday, July 11, 2016 09:27 - CONCLUSION: Normal examination. Richa Luna MD Hand X-Ray 07/11/16 0000 Signed Impressions: Service Date/Time: Monday, July 11, 2016 14:36 - CONCLUSION: Moderate primary osteoarthritis involving in the third DIP joint. Porfirio Barrera MD Objective Remarks GENERAL: This is a pleasant 61 F, well-nourished, well-developed patient, in no apparent distress. CARDIOVASCULAR: Regular rate and regular rhythm without murmurs, gallops, or rubs. RESPIRATORY: Clear to auscultation. Breath sounds equal bilaterally. No wheezes , rales, or rhonchi. GASTROINTESTINAL: Abdomen soft, non-tender, nondistended. Pain pump at the left upper quadrant. Normal, active bowel sounds MUSCULOSKELETAL:left hand covered with clean dressing. Intact neuro vascular. NEURO: Alert & Oriented x4 to person, place, time, situation. Moves all ext x4 Procedures I/D of the left middle finger/ bone biopsy A/P Problem List: (1) Acute encephalopathy ICD Code: G93.40 Status: Acute (2) Lactic acidemia ICD Code: E87.2 Status: Acute (3) Sepsis ICD Code: A41.9 Status: Acute (4) Pneumonia ICD Code: J18.9 Status: Acute (5) Pulmonary edema ICD Code: J81.1 Status: Acute (6) Cellulitis of finger of left hand ICD Code: L03.012 Status: Acute (7) Probable osteomyelitis L middle finger Status: Acute (8) Hypokalemia ICD Code: E87.6 Status: Acute (9) Rhabdomyolysis ICD Code: M62.82 Status: Acute (10) Chronic back pain ICD Code: M54.9 Status: Acute (11) GERD (gastroesophageal reflux disease) ICD Code: K21.9 Status: Acute (12) Hypothyroidism ICD Code: E03.9 Status: Acute (13) Hyperlipidemia ICD Code: E78.5 Status: Acute (14) Hypertension ICD Code: I10 Status: Acute Assessment and Plan Acute metabolic encephalopathy/agitated delirium: Resolved Depression -CT of the head is negative, delirium seems to be secondary to metabolic encephalopathy-now resolved -Patient does take Seroquel and trazodone. There is a history of depression in the chart. -Trazodone was decreased to 100 mg qhs. -Neurology following. EEG is abnormal. Follow-up EEG improved. No seizure activities. Severe sepsis on presentation: Probable source, Left middle finger cellulitis -s/p I/D of the left middle finger and bone biopsy - On vancomycin IV. - Left hand x-ray -moderate osteoarthritis. Unable to get MRI due to morphine pump (abd) - Follow path and cultures. - Hand surgery and ID following. - Awaiting biopsy for further treatment indications - Blood cx NTD, place picc/or midline if indicated by ID specialist - Noted worsening kidney function patient is on vanco. Start IVF . Monitor closely Pulmonary edema: Resolved Probable atypical pneumonia Obstructive sleep apnea -neb treatment -CT chest shows pulmonary edema, clinically appears noncardiogenic - Currently on Vancomycin per ID - 2-D echocardiogram shows preserved EF. Chronic back pain: - Patient follows with pain management. She has a morphine pump. As far as she knows it is functioning. - Limit additional narcotics. Lactic acidemia -s/p Normal saline IV fluids 5 L bolus. LA to normal. Monitor Acute on Chronic kidney disease Rhabdomyolysis -Resolved with hydration. -Noted worsening kidney function patient is on vanco. IVF. Monitor kidney function closely. Avoid nephrotoxins if possible. questionable melena check the stool for blood monitor H/H hold lovenox for now PROPH: -Bilateral lower extremity SCDs. Lovenox on hold as noted above. Discussed with the patient, nurse. Problem Qualifiers (1) Sepsis: Qualified Code: A41.9 - Sepsis, due to unspecified organism (2) Pneumonia: (3) Pulmonary edema: Qualified Code: J81.0 - Acute pulmonary edema Lindy Boston MD Jul 21, 2016 10:18
[2016-07-21 12:00] VITALS: BP 136/68; PULSE 81; RESP 16; TEMP 98.4; O2SAT 95
[2016-07-21] MEDS ORDERED: PHARMACY ORDERED LAB ONE (14:45)
[2016-07-21 16:00] VITALS: BP 177/90; PULSE 83; RESP 17; TEMP 98.3; O2SAT 94
[2016-07-21] MEDS: VANCOMYCIN 1,500 MG/NS 500 ML IV SCH ×2 (16:00)
[2016-07-21 20:00] VITALS: BP 168/103; PULSE 83; RESP 20; TEMP 99.5; O2SAT 94
[2016-07-21] MEDS: QUEtiapine FUMARATE 300 MG TAB PO SCH (21:00)
[2016-07-21] MEDS: traZODone HCL 100 MG TAB PO SCH (21:00)
[2016-07-21] MEDS: ASPIRIN EC 81 MG TABEC PO SCH (21:00)
[2016-07-21] MEDS: CHLORHEXIDINE GLUCONATE 2 % 1 PACK (2 CLOTHS) TOP SCH (23:07)
[2016-07-22] VITALS: BP 150/97; PULSE 89; RESP 20; TEMP 98.5; O2SAT 94
[2016-07-22] MEDS: LACTATED RINGER'S 1000 ML INJ 1,000 ML IV SCH ×4 (02:45→22:13)
[2016-07-22] MEDS: ACETAMINOPHEN/HYDROcodone 325 MG/5 MG TAB PO PRN ×4 (04:27→22:07)
[2016-07-22 05:54] LABS: AUTOMATED NEUTROPHIL # 2.8 TH/MM3 (1.8-7.7); BASOPHIL # 0.1 TH/MM3 (0-0.2); BASOPHIL % 1.3 % (0.0-2.0); EOSINOPHIL # 0.3 TH/MM3 (0-0.4); EOSINOPHIL % 4.8 % (0.0-4.0); HEMATOCRIT 29.1 % (35.0-46.0); HEMO FLAGS DIFF FINAL; LYMPH % 31.8 % (9.0-44.0); LYMPHOCYTE # 1.8 TH/MM3 (1.0-4.8); MEAN CELL VOLUME 90.1 FL (80.0-100.0); MEAN CORPUSCULAR HEMOGLOBIN 29.6 PG (27.0-34.0); MEAN CORPUSCULAR HGB CONC 32.8 % (32.0-36.0); MONO % 12.3 % (0.0-8.0); NEUT % 49.8 % (16.0-70.0); PLATELET COUNT 181 TH/MM3 (150-450); RED BLOOD COUNT 3.23 MIL/MM3 (4.00-5.30); RED CELL DISTRIBUTION WIDTH 15.2 % (11.6-17.2); WHITE BLOOD COUNT 5.6 TH/MM3 (4.0-11.0)
[2016-07-22 06:12] LABS: BICARBONATE 28.2 MEQ/L (21.0-32.0); POTASSIUM 3.4 MEQ/L (3.5-5.1)
[2016-07-22] MEDS: LEVOTHYROXINE SODIUM 125 MCG TAB PO SCH (06:36)
[2016-07-22 08:00] VITALS: BP 145/81; PULSE 76; RESP 17; TEMP 96.8; O2SAT 93
[2016-07-22] MEDS: CETIRIZINE HCL 10 MG TAB PO SCH (08:36)
[2016-07-22] MEDS: SODIUM CHLORIDE 0.9% FLUSH 10 ML FLUSH IV FLUSH SCH ×2 (08:37→21:00)
[2016-07-22] MEDS ORDERED: POTASSIUM CHLORIDE 10 MEQ CONTROLLED RELEASE TAB PO ONE (09:15)
[2016-07-22] MEDS ORDERED: NORC5TAB PO (09:21)
--- NOTE | 2016-07-22 09:22 | HHI.DCPOC ---
Discharge Care Plan Goals to Promote Your Health * To prevent worsening of your condition and complications * To maintain your health at the optimal level Directions to Meet Your Goals Take your medications as prescribed Follow your dietary instruction Follow activity as directed Keep your appointments as scheduled Take your immunizations and boosters as scheduled If your symptoms worsen call your PCP, if no PCP go to Urgent Care Center or Emergency Room Smoking is Dangerous to Your Health. Avoid second hand smoke Call the 24-hour hour crisis hotline for domestic abuse at Lindy Boston MD Jul 22, 2016 09:22
--- NOTE | 2016-07-22 09:22 | HHI.DS ---
Discharge Summary Admission Date Jul 11, 2016 at 11:03 Discharge Date: Jul 23, 2016 Admitting Diagnosis sepsis. Hypokalemia. Renal insufficiency. Hyperthyroidism (1) Acute encephalopathy ICD Code: G93.40 Diagnosis: Principal (2) Lactic acidemia ICD Code: E87.2 Diagnosis: Principal (3) Sepsis ICD Code: A41.9 Diagnosis: Principal (4) Pneumonia ICD Code: J18.9 Diagnosis: Principal (5) Pulmonary edema ICD Code: J81.1 Diagnosis: Principal (6) Cellulitis of finger of left hand ICD Code: L03.012 Diagnosis: Principal (7) Probable osteomyelitis L middle finger Diagnosis: Principal (8) Hypokalemia ICD Code: E87.6 Diagnosis: Principal (9) Rhabdomyolysis ICD Code: M62.82 Diagnosis: Principal (10) Chronic back pain ICD Code: M54.9 Diagnosis: Secondary (11) GERD (gastroesophageal reflux disease) ICD Code: K21.9 Diagnosis: Secondary (12) Hypothyroidism ICD Code: E03.9 Diagnosis: Secondary (13) Hyperlipidemia ICD Code: E78.5 Diagnosis: Secondary (14) Hypertension ICD Code: I10 Diagnosis: Secondary Procedures I/D of the left middle finger/ bone biopsy Brief History - From Admission 61-year-old female with history of hypertension, high cholesterol, hypothyroidism, GERD, morphine pump for chronic back pain brought in by EMS for altered mental status. Patient's mother called EMS this morning because patient was pacing around at her place ( I'm unable to reach the mother to confirm this). Apparently was cooperative in the beginning and then became combative on the way to the ED. No known psychiatric history, but takes trazodone and Seroquel. Recently placed on clindamycin for a left middle finger cellulitis. Lab work showed initially a lactate of 11.8 but repeat was only 2.2. White count was normal potassium was 3 creatinine was 1.5. TSH was normal CK was elevated at 1160. Chest x-ray and CT of the chest showed pulmonary edema. CT brain did not show any acute findings. 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 On my evaluation patient is agitated intermittently. She is able to tell her name and also tell me that she is in a hospital. Left middle finger appears red and swollen. Broad spectrum antibiotics will be given with vanc, Zosyn and Levaquin. ID consulted. Suspicion of meningitis or encephalitis is low given no neck stiffness, no fever now and normal WBC count CBC/BMP: 07/22/16 0452 07/22/16 0452 Significant Findings Laboratory Tests Test 07/20/16 07/21/16 07/21/16 07/22/16 11:45 05:31 14:55 04:52 Hemoglobin 10.7 GM/DL 9.5 GM/DL (11.6-15.3) (11.6-15.3) Hematocrit 33.0 % 29.1 % (35.0-46.0) (35.0-46.0) Creatinine 1.21 MG/DL 1.21 MG/DL (0.50-1.00) (0.50-1.00) Estimat Glomerular Filtration 45 ML/MIN (>89) 45 ML/MIN (>89) Rate Vancomycin Level Trough 20.2 MCG/ML (5.0-10.0) Red Blood Count 3.23 MIL/MM3 (4.00-5.30) Monocytes (%) (Auto) 12.3 % (0.0-8.0) Eosinophils (%) (Auto) 4.8 % (0.0-4.0) Potassium Level 3.4 MEQ/L (3.5-5.1) Calcium Level 8.0 MG/DL (8.5-10.1) Imaging Last Impressions Chest X-Ray 07/23/16 0000 Signed Impressions: Service Date/Time: July 12:40 - CONCLUSION: Mild degree of pulmonary venous congestion. Alma Rosa Burnett MD Chest CT 07/11/16 1115 Signed Impressions: Service Date/Time: Monday, July 11, 2016 11:21 - CONCLUSION: No evidence of infection. Findings consistent with congestive heart failure and pulmonary edema. This is a new finding as compared to the prior CT. Richa Luna MD Abdomen/Pelvis CT 07/11/16 1115 Signed Impressions: Service Date/Time: Monday, July 11, 2016 11:21 - CONCLUSION: No evidence of inflammatory process within the abdomen or pelvis. Stable areas of renal cortical thinning consistent with prior infection and scar. Stable diverticulosis. Richa Luna MD Head CT 07/11/16 0858 Signed Impressions: Service Date/Time: Monday, July 11, 2016 09:27 - CONCLUSION: Normal examination. Richa Luna MD Hand X-Ray 07/11/16 0000 Signed Impressions: Service Date/Time: Monday, July 11, 2016 14:36 - CONCLUSION: Moderate primary osteoarthritis involving in the third DIP joint. Porfirio Barrera MD PE at Discharge GENERAL: This is a pleasant 61 F, well-nourished, well-developed patient, in no apparent distress. CARDIOVASCULAR: Regular rate and regular rhythm without murmurs, gallops, or rubs. RESPIRATORY: Clear to auscultation. Breath sounds equal bilaterally. No wheezes , rales, or rhonchi. GASTROINTESTINAL: Abdomen soft, non-tender, nondistended. Pain pump at the left upper quadrant. Normal, active bowel sounds MUSCULOSKELETAL:left hand covered with clean dressing. Intact neuro vascular. NEURO: Alert & Oriented x4 to person, place, time, situation. Moves all ext x4 Transfer Summary 61-year-old female with history of hypertension, high cholesterol, hypothyroidism, GERD, morphine pump for chronic back pain brought in by EMS for altered mental status. Patient's mother called EMS this morning because patient was pacing around at her place ( I'm unable to reach the mother to confirm this). Apparently was cooperative in the beginning and then became combative on the way to the ED. No known psychiatric history, but takes trazodone and Seroquel. Recently placed on clindamycin for a left middle finger cellulitis. Lab work showed initially a lactate of 11.8 but repeat was only 2.2. White count was normal potassium was 3 creatinine was 1.5. TSH was normal CK was elevated at 1160. Chest x-ray and CT of the chest showed pulmonary edema. CT brain did not show any acute findings. 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 On my evaluation patient is agitated intermittently. She is able to tell her name and also tell me that she is in a hospital. Left middle finger appears red and swollen. Broad spectrum antibiotics will be given with vanc, Zosyn and Levaquin. ID consulted. Suspicion of meningitis or encephalitis is low given no neck stiffness, no fever now and normal WBC count SUBJ: 07/12-hemodynamically stable neurological exam much improved. Patient is alert awake oriented to person and place, did not remember the date. Patient stated that she has very poor memory. Urine output is adequate CPK remains elevated at 1300. Cultures all pending at this time. Chest x-ray shows improving infiltrates Pt update on day of discharge Patient says she feels much better. Awaiting for PICC line placement. She doesn' t have any pain at this time. No fevers or chills. No n/v/d/c. Hospital Course Acute metabolic encephalopathy/agitated delirium: Resolved Depression -CT of the head is negative, delirium seems to be secondary to metabolic encephalopathy-now resolved -Patient does take Seroquel and trazodone. There is a history of depression in the chart. -Trazodone was decreased to 100 mg qhs. -Neurology following. EEG is abnormal. Follow-up EEG improved. No seizure activities. Severe sepsis on presentation: Probable source, Left middle finger cellulitis -s/p I/D of the left middle finger and bone biopsy - On vancomycin IV. - Left hand x-ray -moderate osteoarthritis. Unable to get MRI due to morphine pump (abd) - Follow path and cultures. - Hand surgery and ID following. - Awaiting biopsy for further treatment indications - Blood cx NTD, place picc/or midline if indicated by ID specialist - Noted worsening kidney function patient is on vanco. Start IVF . Monitor closely Pulmonary edema: Resolved Probable atypical pneumonia Obstructive sleep apnea -neb treatment -CT chest shows pulmonary edema, clinically appears noncardiogenic - Currently on Vancomycin per ID - 2-D echocardiogram shows preserved EF. Chronic back pain: - Patient follows with pain management. She has a morphine pump. As far as she knows it is functioning. - Limit additional narcotics. Lactic acidemia -s/p Normal saline IV fluids 5 L bolus. LA to normal. Monitor Acute on Chronic kidney disease Rhabdomyolysis -Resolved with hydration. -Noted worsening kidney function patient is on vanco. IVF. Monitor kidney function closely. Avoid nephrotoxins if possible. questionable melena check the stool for blood monitor H/H hold lovenox for now PROPH: -Bilateral lower extremity SCDs. Lovenox on hold as noted above. Discussed with the patient, nurse. Discussed with the case management and infectious disease for discharge plan. PICC line was placed and the patient received the antibotic IV today prior to DC. Improved . She was discharged in stable condition. To follow up as OP with PCP and consultants. Pt Condition on Discharge: Stable Discharge Disposition: Disch w/ Home Health Serv Discharge Time: > 30 minutes Discharge Instructions DIET: Follow Instructions for: Heart Healthy Diet Activities you can perform: Regular-No Restrictions Follow up Referrals: Appointment for Follow Up - 1 Week with Margarita Arshad MD Appointment for Follow Up - 08/05/16 @ [facility] [place] with MD Dr.Reba Arsen [place] [facility] - 1 Week PCP Follow-up - 3-5 Days New Medications: Daptomycin Inj (Daptomycin Inj) 500 Mg Vial 700 MG IV Q24H Must dilute in appropriate IV Fluid prior to administration Osteomyelitis Days 42 Ref 0 VIAL Epinephrine Inj (Epinephrine Inj) 1 Mg/Ml Inj 0.3 MG IV PUSH ONCE PRN ALLERGIC REACTION #1 VIAL Epinephrine Inj (Epinephrine Inj) 1 Mg/Ml Inj 0.3 MG SQ ONCE Give with any signs of respiratory distress. PRN ALLERGIC REACTION #1 VIAL Hydrocodone-Acetaminophen ([place]) 5-325 mg Tab 1 TAB PO Q4H PRN PAIN #10 Ref 0 TAB Hydrocortisone Inj (Solu-Cortef Inj) 250 Mg Inj 250 MG IV PUSH ONCE Give over 30-60 seconds. PRN ALLERGIC REACTION #1 Ref 0 VIAL Continued Medications: Aspirin DR (Aspir-81) 81 Mg Tabdr 1 TAB PO HS Blood Clot Prevention Cetirizine-Pseudoephedrine 12 HR (Zyrtec-D Allergy/Congestion 12 HR) 5-120 Mg Tab 1 TAB PO HS Allergies Ref 0 TAB Gabapentin (Gabapentin) 300 Mg Cap 300 MG PO BID Pain Management #60 Ref 0 CAP Ibuprofen (Ibuprofen) 600 Mg Tab 600 MG PO Q8HR PRN PAIN Ref 0 TAB Levothyroxine (Levothyroxine) 200 Mcg Tab 200 MCG PO DAILY Thyroid #30 Ref 0 TAB Magnesium Citrate (Magnesium Citrate) 125 Mg Cap 250 MG PO DAILY PRN CONSTIPATION Ref 0 CAP Morphine IR (Morphine IR) 15 Mg Tab 15 MG INTRACATH Q1HR NEB PRN PAIN Ref 0 TAB Ondansetron (Zofran) 4 Mg Tab 4 MG SL Q6HR PRN NAUSEA OR VOMITING Ref 0 TAB Oxycodone-Acetaminophen (Percocet) 10-325 mg Tab 1 TAB PO Q6H PRN PAIN Ref 0 TAB Prednisone (Prednisone) 20 Mg Tab 20 MG PO BID Days 5 Ref 0 TAB Quetiapine (Seroquel) 300 Mg Tab 300 MG PO DAILY Depression Control #30 Ref 0 TAB Trazodone (Trazodone) 100 Mg Tab 200 MG PO HS Control Depression #30 Ref 0 TAB Discontinued Medications: Clindamycin (Clindamycin) 300 Mg Cap 300 MG PO Q6H Infection Days 10 Ref 0 CAP Lindy Boston MD Jul 22, 2016 09:22
--- NOTE | 2016-07-22 09:26 | HHI.FF ---
Face to Face Verification Diagnosis: (1) Arthritis (2) Pneumonia (3) Acute encephalopathy (4) Lactic acidemia (5) Rhabdomyolysis (6) Sepsis (7) CKD (chronic kidney disease) (8) Cellulitis of finger of left hand Home Health Nursing Order: Medical education Signs/symptoms of disease process Medication education-adverse effect Nursing assessment with vital signs IV medication administration I have seen patient Tammy Manley on 07/22/16. My clinical findings support the need for the requested home health care services because: Ltd mobility - disease progression I certify that my clinical findings support that this patient is homebound because: Post-op weakness Lindy Boston MD Jul 22, 2016 09:26
[2016-07-22] MEDS ORDERED: DAPT250I IV (10:02)
[2016-07-22] MEDS ORDERED: EPIN1INJ21 IV PUSH (10:04)
[2016-07-22] MEDS ORDERED: EPIN1INJ21 SQ (10:04)
[2016-07-22] MEDS ORDERED: SOLU250I IV PUSH (10:04)
--- NOTE | 2016-07-22 10:08 | HHI.FF ---
cc: Zhanna Leger MD Infusion Therapy Location of Infusion Therapy: Home Health Care IV Infusion Order Patient Information Appointment Date: Jul 23, 2016 Patient Weight 87.2 kg Diagnosis: Diagnosis Finger osteomyelitis Coded Allergies: Bactrim (Verified Allergy, Severe, 06/11/16) Codeine (Verified Allergy, Severe, NAUSEA, 06/11/16) Flexeril (Verified Allergy, Severe, 06/11/16) Paxil (Verified Allergy, Severe, 06/11/16) Administer Medication Daptomycin 700 mg IV every 24 hours Start Treatment: Jul 23, 2016 Stop Treatment: August 24, 2016 Additional Information Venous access: PICC Line Additional Instructions [x] Peripheral flush and dressing changes per protocol [x] Implanted port and central online affiliate marketing manager: * Implanted port: 10 ml Normal Saline followed by 5 ml Heparin 100 units/ml Heparin flush after each use and monthly to maintain. [] May leave port accessed during therapy. [] May leave peripheral site accessed for duration of therapy. [x] If patient has SOB or respiratory distress, check oxygen saturation. If less than 90% or clinical signs of respiratory distress, administer oxygen at 2 L/min. via nasal cannula and notify physician. [x] Anaphylaxis/Reaction orders: * Stop infusion. * Keep IV line open with saline flush. * Notify physician. * Monitor vital signs every 15 minutes until symptoms resolve. * Check Oxygen saturation; Oxygen at 2 L/min. via nasal cannula if less than 90% or clinical signs of respiratory distress. * Administer diphenhydramine (Benadryl) 25 mg IV STAT, (unless patient has received as pre-med). May repeat once, if necessary. * Solu-Cortef 250 mg IVP over 30-60 seconds, use 100 mg vials for each dissolution. * Epinephrine (1mg/1 ml) 0.3 mg subcutaneously or IVP now with any signs of respiratory distress. * Check with physician for new additional pre-med orders if patient is re- challenged or re-treated. [x] May remove PICC line when treatment complete, after confirming with Physician. [x] If the patient is admitted to the hospital, the ED, or transferred via [facility] , complete transfer form including medication reconciliation order sheet. Laboratory Tests Weekly Labs: CBC w/diff, Creatinine, CRP, LFT's (Hepatic function test), Serum CK Levels Additional Information Please draw weekly labs, fax to numbers below. Please call with abnormals, change in clinical condition or problems to: Dr.Reba Leger or or covering ID Physician Follow up appt: Patient to schedule follow up appt with Dr.Reba Leger within 2 weeks post discharge. Follow up with PCP Follow up with other MDs as planned. Counseling: Counseled about medication side effects Counseled about PICC line care and hand hygiene. Amanda Ryder MD Jul 22, 2016 10:08
--- NOTE | 2016-07-22 10:10 | HHI.PR ---
Addendum to Inpatient Note Addendum Reason: Additional Documentation Additional Information Eosinophils high Creatinine persistently high, concern for Vancomycin Induced Acute Intestitial Nephritis Recs DC Vanco IV Start Daptomycin IV (ASP criteria: as above; AIN vanco induced) Post hospital infusion orders in chart. Bakari Buckner: no PICC till insurance approves Daptomycin IV Bakari Hair Spring Cutter: Dhara Lam to assist with insurance approval. Will see patient later today prior to DC needs follow up with Dr.Reba Arsen VILA MD as outpt. Office notified. Amanda Ryder MD Jul 22, 2016 10:10
--- NOTE | 2016-07-22 12:35 | HHI.PR ---
Subjective Remarks Patient appears in nad. Says she feels better today. Says she would not like to have hand surgery. No chest pain, shortness of breath, nausea or vomiting. Discussed with Dr. Staley plan for PICC line possibly today, Dr. Staley will come and evaluate the patient. Patient will need antibiotics by IV of discharge Discussed also with the case management, is following for discharge plan antibiotics at discharge. Objective Vitals Vital Signs Date Time Temp Pulse Resp B/P Pulse Ox O2 Delivery O2 Flow Rate FiO2 07/22/16 08:00 96.8 76 17 145/81 93 07/22/16 00:00 98.5 89 20 150/97 94 07/21/16 20:00 99.5 83 20 168/103 94 07/21/16 16:00 98.3 83 17 177/90 94 I/O 07/21/16 07/21/16 07/21/16 07/22/16 07/22/16 07/22/16 07:00 15:00 23:00 07:00 15:00 23:00 Intake Total 240 ml 340 ml 480 ml 0 ml Output Total 550 ml 300 ml 300 ml Balance -310 ml 340 ml 180 ml -300 ml Intake Oral 240 ml 340 ml 480 ml 0 ml IV Total 0 ml Output Urine Total 550 ml 300 ml 300 ml # Voids 4 # Bowel Movements 0 1 1 Result Diagram: 07/22/16 0452 07/22/16 0452 Imaging Last Impressions Chest X-Ray 07/12/16 0600 Signed Impressions: Service Date/Time: Tuesday, July 12, 2016 05:27 - CONCLUSION: Prominence of the interstitium which could represent some mild edema. Bry Garrett MD Chest CT 07/11/16 1115 Signed Impressions: Service Date/Time: Monday, July 11, 2016 11:21 - CONCLUSION: No evidence of infection. Findings consistent with congestive heart failure and pulmonary edema. This is a new finding as compared to the prior CT. Richa Luna MD Abdomen/Pelvis CT 07/11/16 1115 Signed Impressions: Service Date/Time: Monday, July 11, 2016 11:21 - CONCLUSION: No evidence of inflammatory process within the abdomen or pelvis. Stable areas of renal cortical thinning consistent with prior infection and scar. Stable diverticulosis. Richa Luna MD Head CT 07/11/16 0858 Signed Impressions: Service Date/Time: Monday, July 11, 2016 09:27 - CONCLUSION: Normal examination. Richa Luna MD Hand X-Ray 07/11/16 0000 Signed Impressions: Service Date/Time: Monday, July 11, 2016 14:36 - CONCLUSION: Moderate primary osteoarthritis involving in the third DIP joint. Porfirio Barrera MD Objective Remarks GENERAL: This is a pleasant 61 F, well-nourished, well-developed patient, in no apparent distress. CARDIOVASCULAR: Regular rate and regular rhythm without murmurs, gallops, or rubs. RESPIRATORY: Clear to auscultation. Breath sounds equal bilaterally. No wheezes , rales, or rhonchi. GASTROINTESTINAL: Abdomen soft, non-tender, nondistended. Pain pump at the left upper quadrant. Normal, active bowel sounds MUSCULOSKELETAL:left hand covered with clean dressing. Intact neuro vascular. NEURO: Alert & Oriented x4 to person, place, time, situation. Moves all ext x4 Procedures I/D of the left middle finger/ bone biopsy A/P Problem List: (1) Acute encephalopathy ICD Code: G93.40 Status: Acute (2) Lactic acidemia ICD Code: E87.2 Status: Acute (3) Sepsis ICD Code: A41.9 Status: Acute (4) Pneumonia ICD Code: J18.9 Status: Acute (5) Pulmonary edema ICD Code: J81.1 Status: Acute (6) Cellulitis of finger of left hand ICD Code: L03.012 Status: Acute (7) Probable osteomyelitis L middle finger Status: Acute (8) Hypokalemia ICD Code: E87.6 Status: Acute (9) Rhabdomyolysis ICD Code: M62.82 Status: Acute (10) Chronic back pain ICD Code: M54.9 Status: Acute (11) GERD (gastroesophageal reflux disease) ICD Code: K21.9 Status: Acute (12) Hypothyroidism ICD Code: E03.9 Status: Acute (13) Hyperlipidemia ICD Code: E78.5 Status: Acute (14) Hypertension ICD Code: I10 Status: Acute Assessment and Plan Acute metabolic encephalopathy/agitated delirium: Resolved Depression -CT of the head is negative, delirium seems to be secondary to metabolic encephalopathy-now resolved -Patient does take Seroquel and trazodone. There is a history of depression in the chart. -Trazodone was decreased to 100 mg qhs. -Neurology following. EEG is abnormal. Follow-up EEG improved. No seizure activities. Severe sepsis on presentation: Probable source, Left middle finger cellulitis -s/p I/D of the left middle finger and bone biopsy - On vancomycin IV. - Left hand x-ray -moderate osteoarthritis. Unable to get MRI due to morphine pump (abd) - Follow path and cultures. - Hand surgery and ID following. - Awaiting biopsy for further treatment indications - Blood cx NTD, place picc/or midline if indicated by ID specialist - Noted worsening kidney function patient is on vanco. Start IVF . Monitor closely Pulmonary edema: Resolved Probable atypical pneumonia Obstructive sleep apnea -neb treatment -CT chest shows pulmonary edema, clinically appears noncardiogenic - Currently on Vancomycin per ID - 2-D echocardiogram shows preserved EF. Chronic back pain: - Patient follows with pain management. She has a morphine pump. As far as she knows it is functioning. - Limit additional narcotics. Lactic acidemia -s/p Normal saline IV fluids 5 L bolus. LA to normal. Monitor Acute on Chronic kidney disease Rhabdomyolysis -Resolved with hydration. -Noted worsening kidney function patient is on vanco. IVF. Monitor kidney function closely. Avoid nephrotoxins if possible. questionable melena check the stool for blood monitor H/H hold lovenox for now PROPH: -Bilateral lower extremity SCDs. Lovenox on hold as noted above. Discussed with the patient, nurse. Discussed with the case management and infectious disease for discharge plan. PICC line to be placed today per infectious disease specialist Case Management following Discharge when arrangements done per case management Problem Qualifiers (1) Sepsis: Qualified Code: A41.9 - Sepsis, due to unspecified organism (2) Pneumonia: (3) Pulmonary edema: Qualified Code: J81.0 - Acute pulmonary edema Lindy Boston MD Jul 22, 2016 12:35
[2016-07-22] MEDS: MORPHINE SULFATE 4 MG/ML INJ IV PUSH PRN ×2 (13:59→19:18)
[2016-07-22 16:00] VITALS: BP 161/99; PULSE 72; RESP 18; TEMP 98.8; O2SAT 95
[2016-07-22] MEDS: DAPTOmycin INJ 700 MG in SODIUM CHLORIDE 0.9% INJ 100 ML IV SCH (19:18)
[2016-07-22 20:00] VITALS: BP 170/87; PULSE 86; RESP 20; TEMP 98.8; O2SAT 96
[2016-07-22] MEDS: traZODone HCL 100 MG TAB PO SCH (22:03)
[2016-07-22] MEDS: ASPIRIN EC 81 MG TABEC PO SCH (22:03)
[2016-07-22] MEDS: QUEtiapine FUMARATE 300 MG TAB PO SCH (22:03)
[2016-07-22] MEDS: ONDANSETRON HCL 4 MG/2 ML VIAL IV PRN (22:10)
[2016-07-23] VITALS: BP 161/79; PULSE 82; RESP 20; TEMP 97.8; O2SAT 97
[2016-07-23] MEDS: LACTATED RINGER'S 1000 ML INJ 1,000 ML IV SCH ×2 (01:54→08:24)
[2016-07-23] MEDS: CHLORHEXIDINE GLUCONATE 2 % 1 PACK (2 CLOTHS) TOP SCH (04:00)
[2016-07-23 05:46] LABS: AUTOMATED NEUTROPHIL # 2.3 TH/MM3 (1.8-7.7); BASOPHIL # 0.1 TH/MM3 (0-0.2); BASOPHIL % 1.3 % (0.0-2.0); EOSINOPHIL # 0.4 TH/MM3 (0-0.4); EOSINOPHIL % 6.6 % (0.0-4.0); HEMATOCRIT 31.1 % (35.0-46.0); HEMO FLAGS DIFF FINAL; LYMPH % 37.5 % (9.0-44.0); LYMPHOCYTE # 2.1 TH/MM3 (1.0-4.8); MEAN CELL VOLUME 89.3 FL (80.0-100.0); MEAN CORPUSCULAR HEMOGLOBIN 30.1 PG (27.0-34.0); MEAN CORPUSCULAR HGB CONC 33.7 % (32.0-36.0); MONO % 13.5 % (0.0-8.0); NEUT % 41.1 % (16.0-70.0); PLATELET COUNT 193 TH/MM3 (150-450); RED BLOOD COUNT 3.49 MIL/MM3 (4.00-5.30); WHITE BLOOD COUNT 5.6 TH/MM3 (4.0-11.0)
[2016-07-23 05:51] LABS: BICARBONATE 28.6 MEQ/L (21.0-32.0); POTASSIUM 3.8 MEQ/L (3.5-5.1)
[2016-07-23] MEDS ORDERED: VANCOMYCIN 1,500 MG/NS 500 ML IV SCH ×2 (06:00)
[2016-07-23] MEDS: LEVOTHYROXINE SODIUM 125 MCG TAB PO SCH (06:13)
[2016-07-23 08:00] VITALS: BP 150/84; PULSE 77; RESP 19; TEMP 97.6; O2SAT 95
[2016-07-23] MEDS: CETIRIZINE HCL 10 MG TAB PO SCH (08:22)
[2016-07-23] MEDS: SODIUM CHLORIDE 0.9% FLUSH 10 ML FLUSH IV FLUSH SCH (08:23)
[2016-07-23] MEDS: ACETAMINOPHEN/HYDROcodone 325 MG/5 MG TAB PO PRN ×2 (08:24→13:20)
[2016-07-23 12:00] VITALS: BP 151/79; PULSE 78; RESP 19; TEMP 98.5; O2SAT 95
[2016-07-23] MEDS ORDERED: SODIUM CHLORIDE 0.9% FLUSH 10 ML FLUSH IV FLUSH PRN (12:45)
--- NOTE | 2016-07-23 12:49 | HHI.PR ---
Addendum to Inpatient Note Additional Information DC Orders in chart. Patient to be discharged today after PICC line placed. Will sign off please call back if any change in clinical condition or questions. Amanda Ryder MD Jul 23, 2016 12:49
--- NOTE | 2016-07-23 12:55 | RADRPT ---
EXAM DATE/TIME: 07/23/2016 12:40 [facility] COMPARISON: CT THORAX W/O CONTRAST, July 11, 2016, 11:21. CHEST SINGLE AP, July 11, 2016, 9:43. INDICATIONS : Evaluate PICC line placement MEDICAL HISTORY : Carcinoma, thyroid. Cardiovascular disease. SURGICAL HISTORY : Cholecystectomy. ENCOUNTER: Subsequent ACUITY: 1 week PAIN SCORE: 0/10 LOCATION: chest FINDINGS: Right subclavian PICC line is present with tip overlapping the expected region of the SVC. There is m ild degree of perivascular pulmonary venous congestion. Focal consolidation is not seen. Heart and me diastinum are unremarkable for technique. CONCLUSION: Mild degree of pulmonary venous congestion. Alma Rosa Burnett MD on July 23, 2016 at 12:51 Board Certified Radiologist. This report was verified electronically.
[2016-07-23] MEDS: DAPTOmycin INJ 700 MG in SODIUM CHLORIDE 0.9% INJ 100 ML IV SCH (13:15)
[2016-07-24] MEDS ORDERED: SODIUM CHLORIDE 0.9% FLUSH 10 ML FLUSH IV FLUSH SCH (09:00)
[2016-07-26] MEDS ORDERED: PHARMACY ORDERED LAB ONE (05:45)
[2016-09-28] MEDS ORDERED: TRAZ100T6 PO (11:11)
[2016-09-28] MEDS ORDERED: CETI1TAB21 PO (11:11)
[2016-09-28] MEDS ORDERED: MAGN100T2 PO (11:11)
== END 2016-07-23 14:55 | disposition home health service (06) | DRG 871 ==
LOC: NEPC 08:47 → NEDA 11:03 → HIMN 13:00 → N07A 07-14 22:59
PROVIDERS: ADMIT Hospitalist; ATTEND Hospitalist
PROC: 0RBX0ZX Excision of Left Finger Phalangeal Joint, Open Approach, Diagnostic (ICD-10-PCS; principal; 2016-07-17 14:20)
PROC: 02HV33Z Insertion of Infusion Device into Superior Vena Cava, Percutaneous Approach (ICD-10-PCS; 2016-07-23)
DX: A41.9 Sepsis, unspecified organism (principal); G93.41 Metabolic encephalopathy; J81.0 Acute pulmonary edema; E87.2 Acidosis; N00.9 Acute nephritic syndrome with unspecified morphologic changes; J18.9 Pneumonia, unspecified organism; M62.82 Rhabdomyolysis; I48.91 Unspecified atrial fibrillation; J44.0 Chronic obstructive pulmonary disease with (acute) lower respiratory infection; M86.9 Osteomyelitis, unspecified; E86.0 Dehydration; R65.20 Severe sepsis without septic shock; G47.33 Obstructive sleep apnea (adult) (pediatric); L03.012 Cellulitis of left finger; E87.6 Hypokalemia; I12.9 Hypertensive chronic kidney disease with stage 1 through stage 4 chronic kidney disease, or unspecified chronic kidney disease; N18.9 Chronic kidney disease, unspecified; K21.9 Gastro-esophageal reflux disease without esophagitis; E78.5 Hyperlipidemia, unspecified; G89.29 Other chronic pain; M54.9 Dorsalgia, unspecified; E89.0 Postprocedural hypothyroidism; M19.90 Unspecified osteoarthritis, unspecified site; E78.00 Pure hypercholesterolemia, unspecified; M65.842 Other synovitis and tenosynovitis, left hand; T36.8X5A Adverse effect of other systemic antibiotics, initial encounter; F41.9 Anxiety disorder, unspecified; F32.9 Major depressive disorder, single episode, unspecified; Y92.239 Unspecified place in hospital as the place of occurrence of the external cause; I25.10 Atherosclerotic heart disease of native coronary artery without angina pectoris; Z85.850 Personal history of malignant neoplasm of thyroid; Z88.2 Allergy status to sulfonamides; Z88.5 Allergy status to narcotic agent; Z99.81 Dependence on supplemental oxygen
CPT/HCPCS: 36569; 36600; 51702; 70450; 71010; 71250; 73120; 74176; 76937; 80048; 80053; 80202; 80307; 81001; 82272; 82550; 82552; 82565; 82805; 83605; 83735; 84100; 84132; 84439; 84443; 84481; 84484; 85014; 85018; 85025; 85027; 85610; 85652; 85730; 86140; 87015; 87040; 87070; 87102; 87116; 87205; 87206; 87449; 87641; 87804; 88305; 88311; 93306; 94640; 94664; 95819; J0131; J0878; J1100; J1580; J1630; J1650; J1956; J2060; J2250; J2270; J2405; J2543; J3010; J3370; J3480; J7030; J7040; J7050

== ENCOUNTER → 2016-09-16 | Day surgery (SDC) | payer MEDICARE, OTHER ==
[~2016-09-16] MED LIST changes: +CETI1TAB21 PO; -CLIN1CAP6 PO; +DAPT250I IV; +EPIN1INJ21 IV PUSH; +EPIN1INJ21 SQ; +KETOROLAC TROMETHAMINE 30 MG/ML (IVP) VIAL IV PUSH ONE; +MAGN100T2 PO; +MEPERIDINE HCL 25 MG/ML VIAL IV ONE; +NORC5TAB PO; +PROPOFOL 200 MG/20 ML AMP IV ONE; +SODIUM CHLORIDE 0.9% 10 ML VIAL ONE; +SOLU250I IV PUSH; +TRAZ100T6 PO
--- NOTE | 2016-09-16 10:11 | M6 ---
cc: PEDRO CUNNINGHAM M.D. DATE 09/16/1977 DATE OF 1955 PROCEDURE Fluoroscopically guided injection neurolytic substance bilateral sacroiliac joints (3% phenol). History and physical was completed and signed. Consent was signed. Procedure site was marked. Medications were listed and reconciled. Pain score was recorded. Allergies were noted. Time out was taken. Fluoroscopy time was recorded where applicable. Sedation was administered or directed by Dr. Cunningham. The patient was given oxygen. The patient was monitored by a registered nurse. Total procedure time was greater than 15 minutes. PROCEDURE NOTE IV was started. Blood pressure cuff, pulse oximeter and EKG were applied. The patient was placed in the prone position on a Scottie table, sedated with small amounts of propofol titrated to effect. Vital signs were monitored and remained stable throughout the procedure. The sacral area was prepped with alcohol and 10% Betadine solution and draped with sterile drapes. Fluoroscopy was used shooting from medial to lateral to clearly visualize the posterior joint line of the bilateral sacroiliac joint. Separate sterile 5-inch, 22-gauge spinal needles were advanced into these joints under fluoroscopic guidance. There was negative aspiration for blood or any other type of fluid. At each location the patient was given 2 mL of 3% phenol. Following this the patient was taken to the recovery room with stable vital signs, neurologically intact. W. MD DAVID Monsivais/GIDEON /8:55 AM /10:10 AM
== END | disposition home or self-care (01) ==
LOC: PHSDC 06:49
PROVIDERS: ATTEND Pain Medicine Interventional Pain Medicine
DX: M54.5 Low back pain (principal)
CPT/HCPCS: 64640; 99152; J1885; J2175

== ENCOUNTER → 2016-09-30 | Day surgery (SDC) | payer MEDICARE, OTHER ==
[~2016-09-30] MED LIST changes: -EPIN1INJ21 IV PUSH; -EPIN1INJ21 SQ; -KETOROLAC TROMETHAMINE 30 MG/ML (IVP) VIAL IV PUSH ONE; -MAGN1CAP2 PO; -NORC5TAB PO; -PRED20 PO; -SOLU250I IV PUSH; -TRAZ100T4 PO; -ZOFR4TAB SL; -ZYRTTAB2 PO
--- NOTE | 2016-10-02 21:42 | M6 ---
cc: PEDRO CUNNINGHAM M.D. DATE: 09/30/2016. DATE OF : 1955. PROCEDURE PERFORMED: Fluoroscopically-guided injection neurolytic substance bilateral sacroiliac joints (3% phenol). DESCRIPTION OF THE PROCEDURE IN DETAIL: History and physical was completed and signed. Consent was signed. Procedure site was marked. Medications were listed and reconciled. Pain score was recorded. Allergies were noted. Time out was taken. Fluoroscopy time was recorded where applicable. Sedation was administered or directed by Dr. Cunningham. The patient was given oxygen. The patient was monitored by a registered nurse. Total procedure time was greater than 15 minutes. IV was started, blood pressure cuff, pulse oximeter and EKG were applied. The patient was placed in the prone position on a Scottie table and sedated with small amounts of propofol titrated to effect. Vital signs were monitored and remained stable throughout the procedure. The lumbar area was prepped with alcohol and 10% Betadine solution and draped with sterile drapes. Fluoroscopy was used shooting from medial to lateral to clearly visualize the posterior joint line of the bilateral sacroiliac joints. Separate sterile 5-inch 22-gauge spinal needles were advanced into each joint under fluoroscopic guidance. There was negative aspiration for blood or any other type of fluid and at each location the patient was given 2 mL of 3% phenol. Following this, the patient was taken to the recovery room with stable vital signs neurologically intact. She will be evaluated immediately and with followup to determine if she has a subjective decrease in her usual pain and a corresponding objective increase her functional capabilities. W. MD DAVID Monsivais/MARLENA /8:22 AM /9:44 PM
== END | disposition home or self-care (01) ==
LOC: PHSDC 06:51
PROVIDERS: ATTEND Pain Medicine Interventional Pain Medicine
DX: M54.5 Low back pain (principal); M25.552 Pain in left hip; M25.551 Pain in right hip
CPT/HCPCS: 64640; 99152; J2175

== ENCOUNTER → 2016-11-11 | Day surgery (SDC) | payer MEDICAID, MEDICARE ==
[~2016-11-11] MED LIST changes: +LIDOCAINE HCL 1% 30 ML VIAL NERV BLOCK ONE; -MAGN100T2 PO; -MEPERIDINE HCL 25 MG/ML VIAL IV ONE; +methylPREDNISolone ACETATE 80 MG/ML VIAL ONE
--- NOTE | 2016-11-14 17:38 | M6 ---
cc: Giovanni CUNNINGHAM DATE 11/11/2016 1955 PROCEDURE Fluoroscopically guided L5-S1 translaminar epidural steroid injection. History and physical was completed and signed. Consent was signed. Procedure site was marked. Medications were listed and reconciled. Pain score was recorded. Allergies were noted. Time out was taken. Fluoroscopy time was recorded where applicable. Sedation was administered or directed by Dr. Cunningham. The patient was given oxygen. The patient was monitored by a registered nurse. Total procedure time was greater than 15 minutes. IV was started, blood pressure cuff, pulse oximeter and EKG were applied. The patient was placed in the prone position on a Scottie table sedated with small amounts of propofol titrated to effect. Vital signs were monitored and remained stable throughout the procedure. Lumbar area was prepped with alcohol and 10% Betadine solution and draped with sterile drapes. Fluoroscopy was used to visualize the L5-S1 intralaminar space. The skin was infiltrated with 1% Xylocaine using a 27 gauge needle. Then a 3-1/2-inch 18-gauge Sorto needle was advanced using fluoroscopic guidance and the [id number] technique into the epidural space at L5-S1 slightly to the right of the midline. There was negative aspiration for blood or any other type of fluid and the patient was given 10 mL of 0.5% Xylocaine which contained 80 mg of Depo-Medrol. MD DAVID Alvarado/ /10:40 AM /5:33 PM
== END | disposition home or self-care (01) ==
LOC: PHSDC 07:59
PROVIDERS: ATTEND Pain Medicine Interventional Pain Medicine
DX: M54.5 Low back pain (principal); M79.661 Pain in right lower leg
CPT/HCPCS: 62323; 99152; J1040

== ENCOUNTER 2017-01-10 00:32 | Inpatient (IN) | payer MEDICARE, MEDICAID ==
[~2017-01-10] VITALS: Ht 167.6 cm; Wt 85.0 kg
[~2017-01-10 00:32] MED LIST changes: -DAPT250I IV; -LIDOCAINE HCL 1% 30 ML VIAL NERV BLOCK ONE; -PROPOFOL 200 MG/20 ML AMP IV ONE; -SODIUM CHLORIDE 0.9% 10 ML VIAL ONE; -methylPREDNISolone ACETATE 80 MG/ML VIAL ONE
[2017-01-10 03:22] LABS: AUTOMATED NEUTROPHIL # 2.8 TH/MM3 (1.8-7.7); BASOPHIL # 0.1 TH/MM3 (0-0.2); EOSINOPHIL # 0.2 TH/MM3 (0-0.4); EOSINOPHIL % 3.7 % (0.0-4.0); HEMO FLAGS DIFF FINAL; LYMPH % 33.7 % (9.0-44.0); LYMPHOCYTE # 1.8 TH/MM3 (1.0-4.8); MEAN CELL VOLUME 88.2 FL (80.0-100.0); MEAN CORPUSCULAR HGB CONC 31.8 % (32.0-36.0); MONO % 11.1 % (0.0-8.0); NEUT % 50.5 % (16.0-70.0); PLATELET COUNT 165 TH/MM3 (150-450); RED BLOOD COUNT 3.86 MIL/MM3 (4.00-5.30); RED CELL DISTRIBUTION WIDTH 15.8 % (11.6-17.2); WHITE BLOOD COUNT 5.5 TH/MM3 (4.0-11.0)
--- NOTE | 2017-01-10 03:35 | PD ---
HPI Chief Complaint: Pain: Acute or Chronic Time Seen by Provider: 01:02 Travel History International Travel<30 days: No Contact w/Intl Traveler<30days: No Traveled to known affect area: No History of Present Illness HPI The patient is a 61-year-old female who presents to the emergency department for generalized pain and weakness of 5 days' duration. The patient states she developed left hand numbness and tingling 5 days ago. The patient then developed bilateral lower extremity weakness and then developed right upper extremity weakness. The patient also complains of subjective fevers, productive cough producing green sputum, mild nausea, decreased appetite, and mild shortness of breath. The patient denies any chest pain, abdominal pain, or diarrhea. She denies any associated dysuria. The patient was unable to follow-up with her primary physician over the last several days. The drums are moderate, there are no current alleviating or exacerbating factors. The patient does have a history of chronic back pain and is currently on a morphine pump. She is followed by her primary physician, Dr. Griffin. [facility] Past Medical History Hx Anticoagulant Therapy: Yes Arthritis: Yes Asthma: No Atrial Fibrillation: Yes Autoimmune Disease: No Blood Disorders: No Anxiety: Yes Depression: Yes Heart Rhythm Problems: No Cancer: Yes (HX THYROID CA) Cardiac Catheterization: Yes (20 % CLOGGED ) Cardiovascular Problems: Yes High Cholesterol: Yes Chemotherapy: No Chest Pain: Yes Congestive Heart Failure: No COPD: No Cerebrovascular Accident: No Coronary Artery Disease: Yes Diabetes: No Diminished Hearing: No Endocrine: Yes Gastrointestinal Disorders: Yes GERD: Yes Glaucoma: No Genitourinary: No Headaches: No Hepatitis: No Hiatal Hernia: No Hypertension: Yes (PT DENIES) Immune Disorder: No Implanted Vascular Access Dvce: Yes Kidney Stones: No Musculoskeletal: Yes Neurologic: Yes Psychiatric: Yes Reproductive: No Respiratory: Yes (COPD ) Migraines: Yes Myocardial Infarction: No Radiation Therapy: Yes Renal Failure: No Seizures: No Sickle Cell Disease: No Sleep Apnea: Yes (O2 2L NC AT NIGHT) Thyroid Disease: Yes Ulcer: Yes PNEUMOCCOCAL Vaccine (Year): 2 Menopausal: Yes Tubal Ligation: Yes Past Surgical History Abdominal Surgery: Yes (STOMACH SURGERY FOR ACID REFLUX) AICD: No Appendectomy: No Arteriovenous Shunt: No Body Medical Devices: MORPHINE PUMP LEFT LOWER ABD NEW ONE 02/2012 Cardiac Surgery: No Cholecystectomy: Yes Coronary Artery Bypass Graft: No Ear Surgery: No Endocrine Surgery: Yes (THYROIDECTOMY RELATED TO CANCER) Eye Surgery: No Genitourinary Surgery: No Gynecologic Surgery: Yes (TUBAL LIG.) Hysterectomy: No Insulin Pump: No Joint Replacement: No Neurologic Surgery: No Oral Surgery: Yes Pacemaker: No Thoracic Surgery: Yes Tonsillectomy: Yes Other Surgery: Yes (THYROIDECTOMY) Social History Alcohol Use: No Tobacco Use: No Substance Use: No Allergies-Medications (Allergen,Severity, Reaction): Coded Allergies: codeine (Unverified Allergy, Severe, NAUSEA, 01/10/17) cyclobenzaprine (Unverified Allergy, Severe, 01/10/17) paroxetine (Unverified Allergy, Severe, 01/10/17) sulfamethoxazole (Unverified Allergy, Severe, 01/10/17) trimethoprim (Unverified Allergy, Severe, 01/10/17) Reported Meds & Prescriptions Reported Meds & Active Scripts Active Reported Cetirizine-Pseudoephedrine 12 HR 5-120 Mg Tab 1 Tab PO HS Trazodone (Trazodone HCl) 100 Mg Tablet 200 Mg PO HS Aspir-81 (Aspirin) 81 Mg Tabdr 1 Tab PO HS Gabapentin 300 Mg Cap 300 Mg PO BID Ibuprofen 600 Mg Tab 600 Mg PO Q8HR PRN Levothyroxine (Levothyroxine Sodium) 200 Mcg Tab 200 Mcg PO DAILY Morphine IR (Morphine Sulfate) 15 Mg Tab 15 Mg INTRACATH Q1HR NEB PRN Percocet (Oxycodone-Acetaminophen) 10-325 mg Tab 1 Tab PO Q6H PRN Seroquel (Quetiapine Fumarate) 300 Mg Tab 300 Mg PO DAILY Review of Systems Except as stated in HPI: all other systems reviewed are Neg General / Constitutional: Positive: Fever, Chills HENT: Positive: Lightheadedness Cardiovascular: No: Chest Pain or Discomfort Respiratory: Positive: Cough, Shortness of Breath Gastrointestinal: Positive: Nausea, No: Vomiting, Diarrhea, Abdominal Pain Genitourinary: No: Dysuria Musculoskeletal: Positive: Myalgias, Arthralgias, Weakness Neurologic: Positive: Paresthesia Physical Exam Narrative GENERAL: Awake, alert, very pleasant 61-year-old female who appears her stated age and is in no acute respiratory distress. SKIN: Focused skin assessment warm/dry. HEAD: Atraumatic. Normocephalic. EYES: Pupils equal and round. No injection or drainage. ENT: No nasal bleeding or discharge. Mucous membranes pink and moist. NECK: Trachea midline. No JVD. CARDIOVASCULAR: Regular rate and rhythm. No murmur appreciated. RESPIRATORY: No accessory muscle use. Clear to auscultation. Breath sounds equal bilaterally. GASTROINTESTINAL: Abdomen soft, non-tender, nondistended. No rebound tenderness. MUSCULOSKELETAL: No obvious deformities. No clubbing. No cyanosis. No edema. NEUROLOGICAL: Awake and alert. No obvious cranial nerve deficits. Motor grossly within normal limits. Normal speech. Nonfocal. PSYCHIATRIC: Appropriate mood and affect; insight and judgment normal. Data Data Orders Orders Complete Blood Count With Diff (01/10/17 01:29) Creatine Kinase (Cpk) (01/10/17 01:29) Comprehensive Metabolic Panel (01/10/17 01:29) Lactic Acid (01/10/17 01:29) Influenzae A/B Antigen (01/10/17 01:30) Urinalysis - C+S If Indicated (01/10/17 03:35) Chest, Single Ap (01/10/17 ) Cath For Specimen (01/10/17 04:27) Urine Culture (01/10/17 04:30) Ceftriaxone Inj (Rocephin Inj) (01/10/17 05:30) Sodium Chlor 0.9% 1000 Ml Inj (Ns 1000 M (01/10/17 05:30) Admit Order (Ed Use Only) (01/10/17 05:37) Labs Laboratory Tests Test 01/10/17 01:29 01/10/17 04:30 White Blood Count 5.5 TH/MM3 Red Blood Count 3.86 MIL/MM3 Hemoglobin 10.8 GM/DL Hematocrit 34.0 % Mean Corpuscular Volume 88.2 FL Mean Corpuscular Hemoglobin 28.0 PG Mean Corpuscular Hemoglobin Concent 31.8 % Red Cell Distribution Width 15.8 % Platelet Count 165 TH/MM3 Mean Platelet Volume 8.2 FL Neutrophils (%) (Auto) 50.5 % Lymphocytes (%) (Auto) 33.7 % Monocytes (%) (Auto) 11.1 % Eosinophils (%) (Auto) 3.7 % Basophils (%) (Auto) 1.0 % Neutrophils # (Auto) 2.8 TH/MM3 Lymphocytes # (Auto) 1.8 TH/MM3 Monocytes # (Auto) 0.6 TH/MM3 Eosinophils # (Auto) 0.2 TH/MM3 Basophils # (Auto) 0.1 TH/MM3 CBC Comment DIFF FINAL Differential Comment Blood Urea Nitrogen 22 MG/DL Creatinine 2.76 MG/DL Random Glucose 99 MG/DL Total Protein 8.3 GM/DL Albumin 3.5 GM/DL Calcium Level 8.6 MG/DL Alkaline Phosphatase 84 U/L Aspartate Amino Transf (AST/SGOT) 21 U/L Alanine Aminotransferase (ALT/SGPT) 17 U/L Total Bilirubin 0.1 MG/DL Sodium Level 139 MEQ/L Potassium Level 3.8 MEQ/L Chloride Level 102 MEQ/L Carbon Dioxide Level 32.5 MEQ/L Anion Gap 5 MEQ/L Estimat Glomerular Filtration Rate 17 ML/MIN Lactic Acid Level 0.4 mmol/L Total Creatine Kinase 183 U/L Urine Color YELLOW Urine Turbidity HAZY Urine pH 6.0 Urine Specific [place] 1.023 Urine Protein 30 mg/dL Urine Glucose (UA) NEG mg/dL Urine Ketones NEG mg/dL Urine Occult Blood SMALL Urine Nitrite NEG Urine Bilirubin NEG Urine Urobilinogen LESS THAN 2.0 MG/DL Urine Leukocyte Esterase LARGE Urine RBC 5 /hpf Urine WBC 22 /hpf Urine Squamous Epithelial Cells 3 /hpf Urine Transitional Epithelial Cells 2 /hpf Urine Amorphous Sediment RARE Urine Bacteria RARE /hpf Urine Hyaline Casts 42 /lpf Urine Mucus FEW /lpf Microscopic Urinalysis Comment CULTURE INDICATED MDM Medical Decision Making Medical Screen Exam Complete: Yes Emergency Medical Condition: Yes Medical Record Reviewed: Yes Interpretation(s) Chest x-ray reveals no acute disease EKG reveals normal sinus rhythm with a rate of 74. No ischemic changes or ectopy noted. Laboratory Tests Test 01/10/17 01:29 01/10/17 04:30 White Blood Count 5.5 TH/MM3 Red Blood Count 3.86 MIL/MM3 Hemoglobin 10.8 GM/DL Hematocrit 34.0 % Mean Corpuscular Volume 88.2 FL Mean Corpuscular Hemoglobin 28.0 PG Mean Corpuscular Hemoglobin Concent 31.8 % Red Cell Distribution Width 15.8 % Platelet Count 165 TH/MM3 Mean Platelet Volume 8.2 FL Neutrophils (%) (Auto) 50.5 % Lymphocytes (%) (Auto) 33.7 % Monocytes (%) (Auto) 11.1 % Eosinophils (%) (Auto) 3.7 % Basophils (%) (Auto) 1.0 % Neutrophils # (Auto) 2.8 TH/MM3 Lymphocytes # (Auto) 1.8 TH/MM3 Monocytes # (Auto) 0.6 TH/MM3 Eosinophils # (Auto) 0.2 TH/MM3 Basophils # (Auto) 0.1 TH/MM3 CBC Comment DIFF FINAL Differential Comment Blood Urea Nitrogen 22 MG/DL Creatinine 2.76 MG/DL Random Glucose 99 MG/DL Total Protein 8.3 GM/DL Albumin 3.5 GM/DL Calcium Level 8.6 MG/DL Alkaline Phosphatase 84 U/L Aspartate Amino Transf (AST/SGOT) 21 U/L Alanine Aminotransferase (ALT/SGPT) 17 U/L Total Bilirubin 0.1 MG/DL Sodium Level 139 MEQ/L Potassium Level 3.8 MEQ/L Chloride Level 102 MEQ/L Carbon Dioxide Level 32.5 MEQ/L Anion Gap 5 MEQ/L Estimat Glomerular Filtration Rate 17 ML/MIN Lactic Acid Level 0.4 mmol/L Total Creatine Kinase 183 U/L Urine Color YELLOW Urine Turbidity HAZY Urine pH 6.0 Urine Specific [place] 1.023 Urine Protein 30 mg/dL Urine Glucose (UA) NEG mg/dL Urine Ketones NEG mg/dL Urine Occult Blood SMALL Urine Nitrite NEG Urine Bilirubin NEG Urine Urobilinogen LESS THAN 2.0 MG/DL Urine Leukocyte Esterase LARGE Urine RBC 5 /hpf Urine WBC 22 /hpf Urine Squamous Epithelial Cells 3 /hpf Urine Transitional Epithelial Cells 2 /hpf Urine Amorphous Sediment RARE Urine Bacteria RARE /hpf Urine Hyaline Casts 42 /lpf Urine Mucus FEW /lpf Microscopic Urinalysis Comment CULTURE INDICATED Date/Time Source Procedure Growth Status 01/10/17 01:30 Nasal Washing Influenza Types A,B Antigen (JOSE) - Final NEGATIVE FOR FLU A AND B ANTIGEN.... Complete 01/10/17 04:30 Urine Clean Catch Urine Culture Pending Received Differential Diagnosis Differential diagnosis includes viral syndrome, influenza, electrolyte abnormality, hypokalemia, hypocalcemia, hyperkalemia, acute kidney injury, dehydration, pneumonia, pyelonephritis, sepsis. Narrative Course IV was established, labs are drawn and sent, and the patient was placed on cardiac telemetry monitoring and continuous pulse oximetry monitoring. EKG was ordered and interpreted. Chest x-ray was obtained. The patient was administered IV fluids, Toradol, and Zofran. Influenza screen was sent to lab, was negative. UA is positive for UTI. Creatinine is elevated at 2.76, her last creatinine was normal at 1.16. The patient does note decreased mobility, she may be dehydrated with acute kidney injury, underlying UTI, which is resulting in myalgias. Chest x-rays unremarkable, no evidence of pneumonia. I discussed the patient with her primary physician, Dr. Griffin, who agrees with 23 hour observation. The patient will need IV fluids, antibiotics, and PT evaluation. Physician Communication Physician Communication I discussed the patient with Dr. Griffin who agrees with 23 hour observation. Diagnosis Primary Impression: Acute kidney injury Additional Impressions: UTI (urinary tract infection) Qualified Codes: N30.00 - Acute cystitis without hematuria Dehydration Admitting Information Admitting Physician Requests: Observation Condition: Stable Jatinder Quiros MD Jan 10, 2017 03:35
[2017-01-10 03:47] LABS: ALKALINE PHOSPHATASE 84 U/L (45-117); ALT (GPT) 17 U/L (10-53); ANION GAP 5 MEQ/L (5-15); AST (GOT) 21 U/L (15-37); BICARBONATE 32.5 MEQ/L (21.0-32.0); BLOOD UREA NITROGEN 22 MG/DL (7-18); CHLORIDE 102 MEQ/L (98-107); CREATINE KINASE 183 U/L (26-192); GLOMERULAR FILTRATION RATE 17 ML/MIN (>89); POTASSIUM 3.8 MEQ/L (3.5-5.1); SODIUM (NA) 139 MEQ/L (136-145); TOTAL BILIRUBIN ADULT 0.1 MG/DL (0.2-1.0)
[2017-01-10 05:06] LABS: BACTERIA, URINE RARE /hpf; BLOOD, URINE SMALL (NEG); COMMENT (UR) CULTURE INDICATED; CULTURE IF INDICATED CULTURE INDICATED; GLUCOSE,URINE NEG (NEG); HYALINE CAST, URINE 42 /lpf (RARE); KETONE, URINE NEG (NEG); MUCUS URINE FEW /lpf (OCC); NITRITE,URINE NEG (NEG); SQUAMOUS EPITHELIAL CELL URINE 3 /hpf (0-5); TRANSITIONAL EPI CELLS, URINE 2 /hpf; URINE COLOR YELLOW (YELLW/STRAW)
[2017-01-10] MEDS ORDERED: SODIUM CHLOR 0.9% 1000 ML INJ 1,000 ML IV ONE (05:30)
[2017-01-10] MEDS ORDERED: cefTRIAXone INJ 1,000 MG in SODIUM CHLORIDE 0.9% INJ 100 ML IV ONE (05:30)
[2017-01-10] MEDS ORDERED: ONDANSETRON HCL 4 MG/2 ML VIAL IV PUSH PRN (05:45)
[2017-01-10] MEDS ORDERED: ACETAMINOPHEN 325 MG TAB PO PRN (05:45)
[2017-01-10] MEDS ORDERED: SODIUM CHLORIDE 0.9% FLUSH 10 ML FLUSH IVF PRN (05:45)
[2017-01-10] MEDS ORDERED: ACETAMINOPHEN 650 MG SUPP RECTAL PRN (05:45)
[2017-01-10] MEDS: SODIUM CHLORIDE 0.9% FLUSH 10 ML FLUSH IV FLUSH SCH ×2 (07:45→22:01)
[2017-01-10 07:46] VITALS: BP 155/88; PULSE 69; RESP 20; TEMP 97.5; O2SAT 94
[2017-01-10] MEDS: SODIUM CHLOR 0.9% 1000 ML INJ 1,000 ML IV SCH ×3 (10:36→22:11)
[2017-01-10 11:30] VITALS: BP 134/85; PULSE 77; RESP 20; TEMP 97.5; O2SAT 95
--- NOTE | 2017-01-10 12:11 | HHI.HP ---
History of Present Illness Primary Care Physician Adrien Griffin, DO Admission Diagnosis acute kidney injury, dehydration, UTI, myalgias Diagnoses: (1) UTI (urinary tract infection) (2) Acute kidney injury Review of Systems Constitutional: COMPLAINS OF: Fever Musculoskeletal: COMPLAINS OF: Back pain Past Family Social History Allergies: Coded Allergies: codeine (Unverified Allergy, Severe, NAUSEA, 01/10/17) cyclobenzaprine (Unverified Allergy, Severe, 01/10/17) paroxetine (Unverified Allergy, Severe, 01/10/17) sulfamethoxazole (Unverified Allergy, Severe, 01/10/17) trimethoprim (Unverified Allergy, Severe, 01/10/17) Past Medical History chronic back pain GUD, Past Surgical History gastroplasty for GUD lumbar surgery x 4 pain pump installed Reported Medications Reported Meds & Active Scripts Active Reported Cetirizine-Pseudoephedrine 12 HR 5-120 Mg Tab 1 Tab PO HS Trazodone (Trazodone HCl) 100 Mg Tablet 200 Mg PO HS Aspir-81 (Aspirin) 81 Mg Tabdr 1 Tab PO HS Gabapentin 300 Mg Cap 300 Mg PO BID Ibuprofen 600 Mg Tab 600 Mg PO Q8HR PRN Levothyroxine (Levothyroxine Sodium) 200 Mcg Tab 200 Mcg PO DAILY Morphine IR (Morphine Sulfate) 15 Mg Tab 15 Mg INTRACATH Q1HR NEB PRN Percocet (Oxycodone-Acetaminophen) 10-325 mg Tab 1 Tab PO Q6H PRN Seroquel (Quetiapine Fumarate) 300 Mg Tab 300 Mg PO DAILY Active Ordered Medications Inpatient Medications Acetaminophen (Tylenol Supp) 650 mg Q4H PRN RECTAL Temp>101F, Headache; Start 01/10/17 at 05:45 Acetaminophen (Tylenol) 650 mg Q4H PRN PO Temp>101F, Headache; Start 01/10/17 at 05:45 Ceftriaxone Sodium 1000 mg/ Sodium Chloride 100 ml @ 200 mls/hr ONCE ONCE IV Last administered on 01/10/17t 06:37; Start 01/10/17 at 05:30; Stop 01/10/17 at 05:59; Status DC Ondansetron HCl (Zofran Inj) 4 mg Q6H PRN IV PUSH NAUSEA OR VOMITING; Start at 05:45 Sodium Chloride 1,000 ml @ 125 mls/hr Q8H IV Last administered on 01/10/17t 10 :36; Start 01/10/17 at 05:45 Sodium Chloride (NS Flush) 2 ml UNSCH PRN IVF FLUSH AFTER USING IV ACCESS; Start 01/10/17 at 05:45 Family History father with colon cancer Social History non smoker non drinker Physical Exam Vital Signs Vital Signs Date Time Temp Pulse Resp B/P (MAP) Pulse Ox O2 Delivery O2 Flow Rate FiO2 01/10/17 07:46 97.5 69 20 155/88 (110) 94 Physical Exam GENERAL: This is a well-nourished, well-developed patient, in no apparent distress. SKIN: No rashes, ecchymoses or lesions. Cool and dry. HEAD: Atraumatic. Normocephalic. No temporal or scalp tenderness. EYES: Pupils equal round and reactive. Extraocular motions intact. No scleral icterus. No injection or drainage. ENT: Nose without bleeding, purulent drainage or septal hematoma. Throat without erythema, tonsillar hypertrophy or exudate. Uvula midline. Airway patent. NECK: Trachea midline. No JVD or lymphadenopathy. Supple, nontender, no meningeal signs. CARDIOVASCULAR: Regular rate and rhythm without murmurs, gallops, or rubs. RESPIRATORY: Clear to auscultation. Breath sounds equal bilaterally. No wheezes , rales, or rhonchi. GASTROINTESTINAL: Abdomen soft, non-tender, nondistended. No hepato-splenomegaly , or palpable masses. No guarding.pain pump present MUSCULOSKELETAL: Extremities without clubbing, cyanosis, or edema. No joint tenderness, effusion, or edema noted. No calf tenderness. Negative Homans sign bilaterally.back pain present NEUROLOGICAL: Awake and alert. Cranial nerves II through XII intact. Motor and sensory grossly within normal limits. Five out of 5 muscle strength in all muscle groups. Normal speech. Laboratory Laboratory Tests Test 01/10/17 01:29 01/10/17 04:30 White Blood Count 5.5 Red Blood Count 3.86 Hemoglobin 10.8 Hematocrit 34.0 Mean Corpuscular Volume 88.2 Mean Corpuscular Hemoglobin 28.0 Mean Corpuscular Hemoglobin Concent 31.8 Red Cell Distribution Width 15.8 Platelet Count 165 Mean Platelet Volume 8.2 Neutrophils (%) (Auto) 50.5 Lymphocytes (%) (Auto) 33.7 Monocytes (%) (Auto) 11.1 Eosinophils (%) (Auto) 3.7 Basophils (%) (Auto) 1.0 Neutrophils # (Auto) 2.8 Lymphocytes # (Auto) 1.8 Monocytes # (Auto) 0.6 Eosinophils # (Auto) 0.2 Basophils # (Auto) 0.1 CBC Comment DIFF FINAL Differential Comment Blood Urea Nitrogen 22 Creatinine 2.76 Random Glucose 99 Total Protein 8.3 Albumin 3.5 Calcium Level 8.6 Alkaline Phosphatase 84 Aspartate Amino Transf (AST/SGOT) 21 Alanine Aminotransferase (ALT/SGPT) 17 Total Bilirubin 0.1 Sodium Level 139 Potassium Level 3.8 Chloride Level 102 Carbon Dioxide Level 32.5 Anion Gap 5 Estimat Glomerular Filtration Rate 17 Lactic Acid Level 0.4 Total Creatine Kinase 183 Urine Color YELLOW Urine Turbidity HAZY Urine pH 6.0 Urine Specific Stirling 1.023 Urine Protein 30 Urine Glucose (UA) NEG Urine Ketones NEG Urine Occult Blood SMALL Urine Nitrite NEG Urine Bilirubin NEG Urine Urobilinogen LESS THAN 2.0 Urine Leukocyte Esterase LARGE Urine RBC 5 Urine WBC 22 Urine Squamous Epithelial Cells 3 Urine Transitional Epithelial Cells 2 Urine Amorphous Sediment RARE Urine Bacteria RARE Urine Hyaline Casts 42 Urine Mucus FEW Microscopic Urinalysis Comment CULTURE INDICATED Date/Time Source Procedure Growth Status 01/10/17 01:30 Nasal Washing Influenza Types A,B Antigen (JOSE) - Final NEGATIVE FOR FLU A AND B ANTIGEN.... Complete 01/10/17 04:30 Urine Clean Catch Urine Culture Pending Received Result Diagram: 01/10/17 0129 01/10/17 0129 Imaging Last 24 hours Impressions Chest X-Ray 01/10/17 0000 Impressions: Service Date/Time: Tuesday, January 10, 2017 02:12 - CONCLUSION: No acute disease. Arnaud Guzman Jr., MD Caprini VTE Risk Assessment Caprini VTE Risk Assessment: No/Low Risk (score <= 1) Caprini Risk Assessment Model Point Value = 1 Point Value = 2 Point Value = 3 Point Value = 5 Age 41-60 Minor surgery BMI > 25 kg/m2 Swollen legs Varicose veins or History of unexplained or recurrent spontaneous Oral contraceptives or hormone replacement Sepsis (< 1 month) Serious lung disease, including pneumonia (< 1 month) Abnormal pulmonary function Acute myocardial infarction Congestive heart failure (< 1 month) History of inflammatory bowel disease Medical patient at bed rest Age 61-74 Arthroscopic surgery Major open surgery (> 45 min) Laparoscopic surgery (> 45 min) Malignancy Confined to bed (> 72 hours) Immobilizing plaster cast Central venous access Age >= 75 History of VTE Family history of VTE Factor V Leiden Prothrombin [id number] Lupus anticoagulant Anticardiolipin antibodies Elevated serum homocysteine Heparin-induced thrombocytopenia Other congenital or acquired thrombophilia Stroke (< 1 month) Elective arthroplasty Hip, pelvis, or leg fracture Acute spinal cord injury (< 1 month) Prophylaxis Regimen Total Risk Factor Score Risk Level Prophylaxis Regimen 0-1 Low Early ambulation 2 Moderate Order ONE of the following: *Sequential Compression Device (SCD) *Heparin 5000 units SQ BID 3-4 Higher Order ONE of the following medications: *Heparin 5000 units SQ TID *Enoxaparin/Lovenox 40 mg SQ daily (WT < 150 kg, CrCl > 30 mL/min) *Enoxaparin/Lovenox 30 mg SQ daily (WT < 150 kg, CrCl > 10-29 mL/min) *Enoxaparin/Lovenox 30 mg SQ BID (WT < 150 kg, CrCl > 30 mL/min) AND/OR *Sequential Compression Device (SCD) 5 or more Highest Order ONE of the following medications: *Heparin 5000 units SQ TID (Preferred with Epidurals) *Enoxaparin/Lovenox 40 mg SQ daily (WT < 150 kg, CrCl > 30 mL/min) *Enoxaparin/Lovenox 30 mg SQ daily (WT < 150 kg, CrCl > 10-29 mL/min) *Enoxaparin/Lovenox 30 mg SQ BID (WT < 150 kg, CrCl > 30 mL/min) AND *Sequential Compression Device (SCD) Assessment and Plan Problem List: (1) UTI (urinary tract infection) ICD Codes: N39.0 - Urinary tract infection, site not specified Status: Acute (2) Acute kidney injury ICD Codes: N17.9 - Acute kidney failure, unspecified Status: Acute Assessment and Plan uti will give cipro avoid cephalosporins with GLORIA hydrate have pt eval Discharge Planning to rehab Problem Qualifiers (1) UTI (urinary tract infection): Qualified Codes: N30.00 - Acute cystitis without hematuria Adrien Griffin DO Jan 10, 2017 12:11
[2017-01-10] MEDS ORDERED: MORPHINE SULFATE 15 MG TAB PO PRN (12:15)
[2017-01-10] MEDS ORDERED: IBUPROFEN 600 MG TAB PO PRN (12:15)
--- NOTE | 2017-01-10 12:44 | RADRPT ---
EXAM DATE/TIME: 01/10/2017 02:12 [facility] COMPARISON: CHEST SINGLE AP, July 23, 2016, 12:40. INDICATIONS : Chest pain. MEDICAL HISTORY : Carcinoma, thyroid. Cardiovascular disease SURGICAL HISTORY : Cholecystectomy. Lumbar fusion. ENCOUNTER: Initial ACUITY: 1 day PAIN SCORE: 0/10 LOCATION: Bilateral chest FINDINGS: A single view of the chest demonstrates the lungs to be symmetrically aerated without evidence of mas s, infiltrate or effusion. The cardiomediastinal contours are unremarkable. Osseous structures are intact. CONCLUSION: No acute disease. Arnaud Guzman Jr., MD on January 10, 2017 at 2:25 Board Certified Radiologist. This report was verified electronically.
--- NOTE | 2017-01-10 12:59 | EKG ---
Date Performed: 01/10/2017 Time Performed: 02:50:11 PTAGE: 61 years EKG: Sinus rhythm NORMAL ECG NO PREVIOUS TRACING DOCTOR: Korey Eric Interpretating Date/Time 01/10/2017 12:56:48
[2017-01-10] MEDS: CIPROFLOXACIN 400 MG PREMIX 200 ML IV SCH (14:30)
[2017-01-10] MEDS: oxyCODONE/ACETAMINOPHEN 10 MG/325 MG TAB PO PRN ×2 (15:01→22:03)
[2017-01-10 16:00] VITALS: BP 131/84; PULSE 74; RESP 18; TEMP 97.4; O2SAT 95
[2017-01-10 20:00] VITALS: BP 180/96; PULSE 72; RESP 17; TEMP 97.4; O2SAT 95
[2017-01-10] MEDS: traZODone HCL 100 MG TAB PO SCH (22:01)
[2017-01-10] MEDS: CETIRIZINE HCL 10 MG TAB PO SCH (22:01)
[2017-01-10] MEDS: GABAPENTIN 300 MG CAP PO SCH (22:01)
[2017-01-10] MEDS: ASPIRIN EC 81 MG TABEC PO SCH (22:02)
[2017-01-10 23:15] VITALS: BP 195/112; PULSE 76; RESP 18; TEMP 97.2; O2SAT 92
[2017-01-11] MEDS: ENALAPRILAT 2.5 MG/2 ML VIAL IV PUSH PRN (00:49)
[2017-01-11] MEDS: cloNIDine HCL 0.1 MG TAB PO SCH ×4 (00:52→17:55)
[2017-01-11 01:36] VITALS: BP 133/69
[2017-01-11 04:45] VITALS: BP 137/81; PULSE 77; RESP 18; TEMP 97; O2SAT 97
[2017-01-11] MEDS: SODIUM CHLOR 0.9% 1000 ML INJ 1,000 ML IV SCH ×4 (05:22→23:32)
[2017-01-11] MEDS: LEVOTHYROXINE SODIUM 200 MCG TAB PO SCH (05:22)
[2017-01-11 08:00] VITALS: BP 124/68; PULSE 68; RESP 16; TEMP 97.1; O2SAT 92
[2017-01-11 09:28] LABS: BICARBONATE 29.5 MEQ/L (21.0-32.0)
[2017-01-11] MEDS: GABAPENTIN 300 MG CAP PO SCH ×2 (09:45→21:07)
[2017-01-11] MEDS: oxyCODONE/ACETAMINOPHEN 10 MG/325 MG TAB PO PRN ×2 (09:45→21:07)
[2017-01-11] MEDS: QUEtiapine FUMARATE 300 MG TAB PO SCH (09:45)
[2017-01-11] MEDS: SODIUM CHLORIDE 0.9% FLUSH 10 ML FLUSH IV FLUSH SCH ×2 (09:48→21:08)
[2017-01-11] MEDS ORDERED: PNEUMOCOCCAL POLYVALENT INJ 25 MCG/0.5 ML SYR IM ONE (10:00)
[2017-01-11] MEDS ORDERED: INFLUENZA VIRUS VACCINE (QUADRIVALENT) 0.5 ML SYR IM ONE (10:00)
[2017-01-11] MEDS ORDERED: LORazepam 0.5 MG TAB PO SCH (11:15)
[2017-01-11 12:00] VITALS: BP 124/71; PULSE 58; RESP 16; TEMP 97.2; O2SAT 91
--- NOTE | 2017-01-11 12:02 | HHI.PR ---
Subjective Remarks She was admitted with C/O generalized weakness and back pain. Objective HEENT - AT/NC Lungs - CTA CV - RRR without rub or gallop Abd - Obese with active BS and no tenderness MS - Reduced ROM with LBP Extrem - edema present Vital Signs Date Time Temp Pulse Resp B/P (MAP) Pulse Ox O2 Delivery O2 Flow Rate FiO2 01/11/17 08:00 97.1 68 16 124/68 (86) 92 01/11/17 04:45 97.0 77 18 137/81 (99) 97 01/11/17 02:47 Room Air 01/11/17 01:36 133/69 (90) 01/10/17 23:15 97.2 76 18 195/112 (139) 92 01/10/17 22:56 18 01/10/17 20:00 97.4 72 17 180/96 (124) 95 01/10/17 16:00 97.4 74 18 131/84 (100) 95 I/O 01/10/17 01/10/17 01/10/17 01/11/17 01/11/17 01/11/17 07:00 15:00 23:00 07:00 15:00 23:00 Intake Total 240 ml 1960 ml Balance 240 ml 1960 ml Intake Oral 240 ml 960 ml IV Total 1000 ml # Voids 1 3 # Bowel Movements 0 Result Diagram: 01/10/17 0129 01/11/17825 Objective Remarks MRI ordered and pending Medications and IVs Current Medications Medications (Trade) Dose Ordered Sig/Obdulia Route Start Time Stop Time Status Last Admin (Zofran Inj) 4 mg Q6H PRN IV PUSH 01/10/17 05:45 (Tylenol) 650 mg Q4H PRN PO 01/10/17 05:45 (Tylenol Supp) 650 mg Q4H PRN RECTAL 01/10/17 05:45 (NS Flush) 2 ml BID IV FLUSH 01/10/17 09:00 01/11/17 09:48 (NS Flush) 2 ml UNSCH PRN IVF 01/10/17 05:45 Sodium Chloride 1,000 ml @ 125 mls/hr Q8H IV 01/10/17 05:45 01/11/17 05:22 (Ecotrin Ec) 81 mg HS PO 01/10/17 21:00 01/10/17 22:02 (Neurontin) 300 mg BID PO 01/10/17 21:00 01/11/17 09:45 (Motrin) 600 mg Q8H PRN PO 01/10/17 12:15 (Synthroid) 200 mcg DAILY@0600 PO 01/11/17 06:00 01/11/17 05:22 (Msir) 15 mg Q1H PRN PO 01/10/17 12:15 01/10/17 16:06 (SEROquel) 300 mg DAILY PO 01/11/17 09:00 01/11/17 09:45 (ZyrTEC) 10 mg HS PO 01/10/17 21:00 01/10/17 22:01 (Desyrel) 200 mg HS PO 01/10/17 21:00 01/10/17 22:01 Ciprofloxacin/ Dextrose 200 ml @ 200 mls/hr Q24H IV 01/10/17 13:00 01/10/17 14:30 (Catapres) 0.1 mg TID PO 01/11/17 00:34 01/11/17 09:45 (Vasotec Inj) 2.5 mg Q6H PRN IV PUSH 01/11/17 00:30 01/11/17 00:49 (Percocet 10-325 Mg) 1 tab Q4H PRN PO 01/11/17 00:45 01/11/17 09:45 (Ativan) 0.5 mg [employer] ASSISTANT PO 01/11/17 11:15 01/12/17 11:14 Assessment and Plan Problem List: (1) Dehydration ICD Codes: E86.0 - Dehydration Status: Acute Plan: IV hydration (2) UTI (urinary tract infection) ICD Codes: N39.0 - Urinary tract infection, site not specified Status: Acute Plan: Empiric antibiotics pending C&S (3) Acute kidney injury ICD Codes: N17.9 - Acute kidney failure, unspecified Status: Acute Plan: Gently hydration (4) CKD (chronic kidney disease), stage IV ICD Codes: N18.4 - Chronic kidney disease, stage 4 (severe) Status: Acute Plan: F/U renal plan Discussed Condition With Patient and mother Discharge Planning Home Problem Qualifiers (1) UTI (urinary tract infection): Qualified Codes: N30.00 - Acute cystitis without hematuria Armando Torres Jan 11, 2017 12:02
[2017-01-11] MEDS ORDERED: LORazepam 2 MG/ML VIAL IV ONE (15:00)
[2017-01-11 16:00] VITALS: BP 158/88; PULSE 57; RESP 16; TEMP 96.1; O2SAT 93
[2017-01-11] MEDS: CIPROFLOXACIN 400 MG PREMIX 200 ML IV SCH (16:15)
[2017-01-11 20:00] VITALS: BP 195/98; PULSE 62; RESP 16; TEMP 96.2; O2SAT 95
[2017-01-11] MEDS: traZODone HCL 100 MG TAB PO SCH (21:07)
[2017-01-11] MEDS: ASPIRIN EC 81 MG TABEC PO SCH (21:07)
[2017-01-11] MEDS: CETIRIZINE HCL 10 MG TAB PO SCH (21:07)
[2017-01-12] VITALS (8 sets, daily range): BP systolic 133–171; BP diastolic 77–95; PULSE 58–73; RESP 16–18; TEMP 95.8–98.3; O2SAT 91–99
[2017-01-12] MEDS: ENALAPRILAT 2.5 MG/2 ML VIAL IV PUSH PRN ×2 (01:40→19:41)
[2017-01-12] MEDS: LEVOTHYROXINE SODIUM 200 MCG TAB PO SCH (05:23)
[2017-01-12] MEDS: SODIUM CHLOR 0.9% 1000 ML INJ 1,000 ML IV SCH ×3 (05:23→22:38)
--- NOTE | 2017-01-12 09:09 | HHI.PR ---
Subjective Remarks She was admitted with C/O generalized weakness and back pain and W/U is in progress. For MRI under anesthesia today after failed study with Ativan yesterday. Objective Vital Signs Date Time Temp Pulse Resp B/P (MAP) Pulse Ox O2 Delivery O2 Flow Rate FiO2 01/12/17 04:00 96.0 60 16 149/92 (111) 94 01/12/17 00:00 98.3 72 17 160/95 (116) 95 01/11/17 20:00 96.2 62 16 195/98 (130) 95 01/11/17 16:00 96.1 57 16 158/88 (111) 93 01/11/17 12:00 97.2 58 16 124/71 (88) 91 I/O 01/11/17 01/11/17 01/11/17 01/12/17 01/12/17 01/12/17 07:00 15:00 23:00 07:00 15:00 23:00 Intake Total 1960 ml 480 ml 680 ml 340 ml Balance 1960 ml 480 ml 680 ml 340 ml Intake Oral 960 ml 480 ml 480 ml 240 ml IV Total 1000 ml 200 ml 100 ml # Voids 3 1 5 5 # Bowel Movements 0 0 0 0 Result Diagram: 01/10/17 0129 01/11/17 0826 Objective Remarks MRI ordered and pending Assessment and Plan Problem List: (1) Dehydration ICD Codes: E86.0 - Dehydration Status: Acute Plan: IV hydration (2) UTI (urinary tract infection) ICD Codes: N39.0 - Urinary tract infection, site not specified Status: Acute Plan: Empiric antibiotics pending C&S (3) Acute kidney injury ICD Codes: N17.9 - Acute kidney failure, unspecified Status: Acute Plan: Gently hydration (4) CKD (chronic kidney disease), stage IV ICD Codes: N18.4 - Chronic kidney disease, stage 4 (severe) Status: Acute Plan: F/U renal plan Problem Qualifiers (1) UTI (urinary tract infection): Qualified Codes: N30.00 - Acute cystitis without hematuria Armando Torres Jan 12, 2017 09:09
[2017-01-12] MEDS: QUEtiapine FUMARATE 300 MG TAB PO SCH (09:24)
[2017-01-12] MEDS: cloNIDine HCL 0.1 MG TAB PO SCH ×3 (09:24→17:07)
[2017-01-12] MEDS: GABAPENTIN 300 MG CAP PO SCH ×2 (09:24→20:45)
[2017-01-12] MEDS: SODIUM CHLORIDE 0.9% FLUSH 10 ML FLUSH IV FLUSH SCH ×2 (09:24→20:45)
[2017-01-12] MEDS ORDERED: PNEUMOCOCCAL POLYVALENT INJ 25 MCG/0.5 ML SYR IM ONE (10:00)
[2017-01-12] MEDS ORDERED: INFLUENZA VIRUS VACCINE (QUADRIVALENT) 0.5 ML SYR IM ONE (10:00)
[2017-01-12] MEDS ORDERED: LIDOCAINE HCL 1% PF 5 ML AMPULE OTHER ONE (12:00)
[2017-01-12] MEDS ORDERED: PROPOFOL 200 MG/20 ML AMP IV ONE (12:00)
[2017-01-12] MEDS ORDERED: GADODIAMIDE PF 287 MG/ML 20 ML VIAL (for RAD MRI) IVCONTRAST ONE (14:44)
[2017-01-12] MEDS ORDERED: DO NOT ADM ANY ANTICOAGULANT DRUGS PRN (15:15)
[2017-01-12] MEDS ORDERED: *morphine SULFATE 8 MG/ML PERIprocedure ONLY ONE (15:16)
--- NOTE | 2017-01-12 15:38 | RADRPT ---
EXAM DATE/TIME: 01/12/2017 14:25 [facility] COMPARISON: No previous studies available for comparison. INDICATIONS : Severe back pain radiating to legs. CONTRAST: 16 cc Omniscan (gadodiamide) IV MEDICAL HISTORY : Carcinoma, thyroid. SURGICAL HISTORY : Thyroidectomy. Stomach surgery. ENCOUNTER: Subsequent ACUITY: 2 day PAIN SCORE: 7/10 LOCATION: back. TECHNIQUE: Multiplanar multisequence MRI of the lumbar spine was performed with and without contrast. FINDINGS: Sagittal images demonstrate normal vertebral body alignment and curvature. No focal areas of marrow r eplacement are identified. The conus terminates normally. Axial images were performed from T12-L1 thr ough L5-S1. There are reactive endplate changes of the Modic type two variety at L4-L5. Following the administration of contrast no abnormal enhancement is identified. T12-L1: No significant abnormalities identified. L1-L2: No significant abnormalities identified. L2-L3: There is mild diffuse annular bulge of the disc. The neural foramina are clear bilaterally. There is no significant spinal canal stenosis. L3-L4: There is mild annular bulge of the disc. There is mild facet arthritis and ligamentum flavum hypertro phy bilaterally. The neural foramina are clear bilaterally. L4-L5: No significant abnormalities identified. L5-S1: There is no evidence of disc protrusion or spinal canal stenosis. There is mild facet arthritis bilat erally. The neural foramina are clear bilaterally. CONCLUSION: 1. No evidence of disc protrusion or spinal canal stenosis. Mild multilevel facet arthritis Taiwo Reid MD on January 12, 2017 at 15:32 Board Certified Radiologist. This report was verified electronically.
[2017-01-12] MEDS: CIPROFLOXACIN 400 MG PREMIX 200 ML IV SCH (16:57)
[2017-01-12] MEDS: oxyCODONE/ACETAMINOPHEN 10 MG/325 MG TAB PO PRN (19:42)
[2017-01-12] MEDS: CETIRIZINE HCL 10 MG TAB PO SCH (20:45)
[2017-01-12] MEDS: ASPIRIN EC 81 MG TABEC PO SCH (20:46)
[2017-01-12] MEDS: traZODone HCL 100 MG TAB PO SCH (20:46)
[2017-01-13] VITALS: BP 142/74; PULSE 60; RESP 17; TEMP 97.3; O2SAT 95
[2017-01-13] MEDS: SODIUM CHLOR 0.9% 1000 ML INJ 1,000 ML IV SCH ×3 (00:10→18:32)
[2017-01-13 04:00] VITALS: BP 137/88; PULSE 56; RESP 16; TEMP 97; O2SAT 95
[2017-01-13] MEDS: oxyCODONE/ACETAMINOPHEN 10 MG/325 MG TAB PO PRN ×4 (05:39→22:32)
[2017-01-13] MEDS: LEVOTHYROXINE SODIUM 200 MCG TAB PO SCH (05:39)
[2017-01-13 08:00] VITALS: BP 163/81; PULSE 66; PULSE 73; RESP 18; TEMP 97.5; TEMP 97.6; O2SAT 94
[2017-01-13] MEDS: SODIUM CHLORIDE 0.9% FLUSH 10 ML FLUSH IV FLUSH SCH ×2 (08:18→20:18)
[2017-01-13] MEDS: cloNIDine HCL 0.1 MG TAB PO SCH ×3 (10:13→17:01)
[2017-01-13] MEDS: QUEtiapine FUMARATE 300 MG TAB PO SCH (10:13)
[2017-01-13] MEDS: GABAPENTIN 300 MG CAP PO SCH ×2 (10:13→20:17)
--- NOTE | 2017-01-13 11:56 | HHI.PR ---
Subjective Remarks She was admitted with C/O generalized weakness and back pain and W/U is in progress. MRI under anesthesia revealsed mild arthritis with no cord impingement , but now she C/O pain in the right leg unrelieved by neurontin. Objective Vital Signs Date Time Temp Pulse Resp B/P (MAP) Pulse Ox O2 Delivery O2 Flow Rate FiO2 01/13/17 11:32 15 01/13/17 08:00 Room Air 01/13/17 08:00 97.6 73 18 163/81 (108) 94 01/13/17 04:00 97.0 56 16 137/88 (104) 95 01/13/17 00:00 97.3 60 17 142/74 (96) 95 01/12/17 20:20 95 01/12/17 19:15 97.9 63 16 171/92 (118) 95 01/12/17 15:45 95.8 58 16 153/89 (110) 95 01/12/17 15:30 56 18 164/82 (109) 99 Room Air 01/12/17 15:10 97.7 58 18 176/89 (118) 100 Room Air 01/12/17 12:00 96.8 60 18 146/90 (108) 91 I/O 01/12/17 01/12/17 01/12/17 01/13/17 01/13/17 01/13/17 07:00 15:00 23:00 07:00 15:00 23:00 Intake Total 340 ml 0 ml 100 ml 2155 ml 325 ml Balance 340 ml 0 ml 100 ml 2155 ml 325 ml Intake Oral 240 ml 0 ml 480 ml IV Total 100 ml 1675 ml 325 ml Other 100 ml # Voids 5 2 3 # Bowel Movements 0 0 0 Result Diagram: 01/10/17 0129 01/11/17 0826 Objective Remarks HEENT - AT/NC Resp - CTA CV - RRR without murmur rub or gallop Extrem - FROM Neuro - alert and oriented Medications and IVs Current Medications Medications (Trade) Dose Ordered Sig/Obdulia Route Start Time Stop Time Status Last Admin (Zofran Inj) 4 mg Q6H PRN IV PUSH 01/10/17 05:45 (Tylenol) 650 mg Q4H PRN PO 01/10/17 05:45 (Tylenol Supp) 650 mg Q4H PRN RECTAL 01/10/17 05:45 (NS Flush) 2 ml BID IV FLUSH 01/10/17 09:00 01/12/17 20:45 (NS Flush) 2 ml UNSCH PRN IVF 01/10/17 05:45 Sodium Chloride 1,000 ml @ 125 mls/hr Q8H IV 01/10/17 05:45 01/13/17 08:18 (Ecotrin Ec) 81 mg HS PO 01/10/17 21:00 01/12/17 20:46 (Neurontin) 300 mg BID PO 01/10/17 21:00 01/13/17 10:13 (Motrin) 600 mg Q8H PRN PO 01/10/17 12:15 (Synthroid) 200 mcg DAILY@0600 PO 01/11/17 06:00 01/13/17 05:39 (Msir) 15 mg Q1H PRN PO 01/10/17 12:15 01/10/17 16:06 (SEROquel) 300 mg DAILY PO 01/11/17 09:00 01/13/17 10:13 (ZyrTEC) 10 mg HS PO 01/10/17 21:00 01/12/17 20:45 (Desyrel) 200 mg HS PO 01/10/17 21:00 01/12/17 20:46 Ciprofloxacin/ Dextrose 200 ml @ 200 mls/hr Q24H IV 01/10/17 13:00 01/12/17 16:57 (Catapres) 0.1 mg TID PO 01/11/17 00:34 01/13/17 10:13 (Vasotec Inj) 2.5 mg Q6H PRN IV PUSH 01/11/17 00:30 01/12/17 19:41 (Percocet 10-325 Mg) 1 tab Q4H PRN PO 01/11/17 00:45 01/13/17 10:14 Miscellaneous Information ALL NURSING DEPARTME... UNSCH PRN .XX 01/12/17 15:15 01/13/17 15:14 Assessment and Plan Problem List: (1) Dehydration ICD Codes: E86.0 - Dehydration Status: Resolved Plan: IV hydration (2) UTI (urinary tract infection) ICD Codes: N39.0 - Urinary tract infection, site not specified Status: Acute Plan: Empiric antibiotics with 50-100K mixed ayleen (3) Acute kidney injury ICD Codes: N17.9 - Acute kidney failure, unspecified Status: Resolved Plan: Gently hydration improved GFR from 17 to 48 ml/min. Will recheck in the AM. (4) CKD (chronic kidney disease), stage IV ICD Codes: N18.4 - Chronic kidney disease, stage 4 (severe) Status: Resolved Plan: F/U renal plan (5) Leg pain, bilateral ICD Codes: M79.604 - Pain in right leg; M79.605 - Pain in left leg Status: Acute Plan: Cont Neurontin and consult neuro to assess Discussed Condition With patient Discharge Planning May need rehab referral as debility has worsened this adm Problem Qualifiers (1) UTI (urinary tract infection): Qualified Codes: N30.00 - Acute cystitis without hematuria Armando Torres Jan 13, 2017 11:56
[2017-01-13 12:00] VITALS: BP 111/61; PULSE 66; RESP 18; TEMP 97.5; O2SAT 92
[2017-01-13] MEDS: CIPROFLOXACIN 400 MG PREMIX 200 ML IV SCH (13:23)
[2017-01-13 14:35] LABS: AUTOMATED NEUTROPHIL # 2.5 TH/MM3 (1.8-7.7); BASOPHIL % 0.8 % (0.0-2.0); EOSINOPHIL # 0.2 TH/MM3 (0-0.4); EOSINOPHIL % 4.9 % (0.0-4.0); HEMATOCRIT 30.9 % (35.0-46.0); HEMO FLAGS DIFF FINAL; LYMPH % 32.7 % (9.0-44.0); LYMPHOCYTE # 1.5 TH/MM3 (1.0-4.8); MEAN CELL VOLUME 87.1 FL (80.0-100.0); MEAN CORPUSCULAR HGB CONC 32.1 % (32.0-36.0); MONO % 8.4 % (0.0-8.0); NEUT % 53.2 % (16.0-70.0); PLATELET COUNT 156 TH/MM3 (150-450); RED BLOOD COUNT 3.55 MIL/MM3 (4.00-5.30); RED CELL DISTRIBUTION WIDTH 15.9 % (11.6-17.2); WHITE BLOOD COUNT 4.7 TH/MM3 (4.0-11.0)
[2017-01-13 14:58] LABS: ANION GAP 8 MEQ/L (5-15); AST (GOT) 16 U/L (15-37); BICARBONATE 28.5 MEQ/L (21.0-32.0); BLOOD UREA NITROGEN 7 MG/DL (7-18); CHLORIDE 103 MEQ/L (98-107); GLOMERULAR FILTRATION RATE 60 ML/MIN (>89); POTASSIUM 3.7 MEQ/L (3.5-5.1); SODIUM (NA) 139 MEQ/L (136-145)
[2017-01-13 14:59] LABS: ALT (GPT) 12 U/L (10-53)
[2017-01-13 15:01] LABS: ALKALINE PHOSPHATASE 74 U/L (45-117); TOTAL BILIRUBIN ADULT 0.2 MG/DL (0.2-1.0)
[2017-01-13 16:10] VITALS: BP 156/103; PULSE 67; RESP 16; TEMP 97.1; O2SAT 95
--- NOTE | 2017-01-13 17:21 | MB ---
cc: ELISABETH MIGUEL M.D. DATE OF CONSULTATION: 01/13/2017 REASON FOR CONSULTATION: HISTORY OF PRESENT ILLNESS: The patient is a 61 year-old right-handed woman with UTI, hypothyroidism, possibly some cancer in the thyroid in the past, who came in with a UTI. She felt like she was hot all over her body. Yesterday she developed some burning pain in the right anterior thigh. She has had history of low back surgery and chronic pain, has a pain pump in, pain down her legs. It still tingles and bartholomew slightly she tells me in the right anterior thigh. ALLERGIES CODEINE. CYCLOBENZAPRINE PAROXETINE SULFA TRIMETHOPRIM PAST MEDICAL HISTORY/PAST SURGICAL HISTORY: 1. Low back surgery. 2. Pain pump installed. 3. Chronic back pain. MEDICATIONS AT HOME: 1. Sudafed. 2. Trazodone 200 at bed time. 3. 81 of aspirin. 4. Neurontin 300 b.i.d. 5. Ibuprofen 6. Morphine in the catheter. 7. Thyroid medicine. 8. Percocet. 9. Seroquel 300 a day. 10. Tylenol. 11. Zofran. REVIEW OF SYSTEMS: She denied any history of hypertension, diabetes, hypercholesterolemia, SD, CABG, cardiac arrhythmia, A-fib, Coumadin, renal, hepatic, pulmonary disease, besides recent kidney problem here. There is a history of thyroid problems. No history of lupus, ulcer, seizure, stroke. SOCIAL HISTORY: She is not a smoker or drinker. She lives with her mother. FAMILY HISTORY: Positive for cancer in the father, negative for seizure or stroke. PHYSICAL EXAMINATION: Afebrile, 73, 18, 163/81. Neck: There are no carotid bruits. Heart: Regular rhythm, I did not detect a murmur. Pupils are equal, visual messer are full. Extraocular movements intact without nystagmus. Face symmetric, normal station. Tongue was midline. There was no drift. She had normal strength in upper and lower extremities bilaterally including the right iliopsoas, hamstring, quad, tibialis anterior, foot inversion and eversion, toe extensors, gastrocs are intact bilaterally. She can stand on her toes well. DTRs are trace to absent throughout upper and lower extremities bilaterally. Pinprick was intact throughout upper and lower extremities bilaterally. She is not ataxic on [id number]. Gait is normal. She can stand without using her arms. No apparent distress at this time. Specifically no numbness over the anterior lateral thigh on the right. There were no inguinal masses, nodes or tenderness on the right side. LABORATORY DATA CBC shows hematocrit of 30, otherwise normal. UA large amount of leuko esterase, 22 white cells, creatinine was 2.76 now 0.95. LFTs are normal. CPK was negative. Albumin is low at 2.9. She had a MRI of her lumbar spine done multilevel arthritis. No spinal stenosis is noted. IMPRESSION Some pain in the anterior lateral thigh could be a slight meralgia paresthetica. I think her exam looks fine. It does not seem to be bothering her too much. At this point, you could increase her gabapentin if it bothers her anymore to 600 b.i.d. or even 900 b.i.d. or 1200 b.i.d. Otherwise, I think she looks well neurologically. She did have some aches and pains, however, and even making a fist was tender. She could have some fibromyalgia would be a consideration, however, she says this is new for her. So, if in fact it is new, will check a sed rate, rheumatoid factor, CPK. I did review her MRI of her LS spine films and considering she has had multiple surgeries, it actually looks near normal. I don't see anything that would be causing any significant right thigh tingling. I note she does nod off when I first came in. Her head was against the bed railing. The med team may be able to back off on some of her sedating medications. MD CARLOS Bay/ANITA /3:06 PM /4:57 PM
[2017-01-13 19:00] VITALS: BP 182/86; PULSE 68; RESP 18; TEMP 97.3; O2SAT 96
[2017-01-13 20:03] LABS: RHEUMATOID FACTOR TRIGGER LESS THAN 10.0 IU/ML (0.0-14.9)
[2017-01-13] MEDS: CETIRIZINE HCL 10 MG TAB PO SCH (20:17)
[2017-01-13] MEDS: ASPIRIN EC 81 MG TABEC PO SCH (20:17)
[2017-01-13] MEDS: traZODone HCL 100 MG TAB PO SCH (20:18)
[2017-01-13] MEDS: ENALAPRILAT 2.5 MG/2 ML VIAL IV PUSH PRN (23:46)
[2017-01-14 00:44] VITALS: BP 196/92; PULSE 70; RESP 16; TEMP 96.6; O2SAT 94
[2017-01-14] MEDS: oxyCODONE/ACETAMINOPHEN 10 MG/325 MG TAB PO PRN ×3 (04:12→12:45)
[2017-01-14] MEDS: LEVOTHYROXINE SODIUM 200 MCG TAB PO SCH (05:52)
[2017-01-14 06:10] VITALS: BP 174/105; PULSE 66; RESP 18; TEMP 96.6; O2SAT 93
--- NOTE | 2017-01-14 07:16 | HHI.PR ---
Objective Vital Signs Date Time Temp Pulse Resp B/P (MAP) Pulse Ox O2 Delivery O2 Flow Rate FiO2 01/14/17 06:10 96.6 66 18 174/105 (128) 93 01/14/17 00:44 96.6 70 16 196/92 (126) 94 01/13/17 19:00 97.3 68 18 182/86 (118) 96 01/13/17 16:10 97.1 67 16 156/103 (120) 95 01/13/17 12:00 97.5 66 18 111/61 (78) 92 01/13/17 11:32 15 01/13/17 08:00 97.5 66 18 01/13/17 08:00 Room Air 01/13/17 08:00 97.6 73 18 163/81 (108) 94 I/O 01/13/17 01/13/17 01/13/17 01/14/17 01/14/17 01/14/17 07:00 15:00 23:00 07:00 15:00 23:00 Intake Total 2155 ml 525 ml 1000 ml Balance 2155 ml 525 ml 1000 ml Intake Oral 480 ml IV Total 1675 ml 525 ml 1000 ml # Voids 3 3 2 # Bowel Movements 0 Result Diagram: 01/13/17 1336 01/13/17 1336 Objective Remarks feeeling fine now gets up moving rle nl Assessment and Plan Assessment and Plan imp cpk rf nl ben pend esr 42 but uti defer to med team ok dc by fl med team fu ben result Taiwo Peoples MD Jan 14, 2017 07:16
[2017-01-14 08:00] VITALS: BP 167/98; PULSE 64; RESP 18; TEMP 96.5; O2SAT 92
[2017-01-14] MEDS: QUEtiapine FUMARATE 300 MG TAB PO SCH (08:24)
[2017-01-14] MEDS: GABAPENTIN 300 MG CAP PO SCH (08:24)
[2017-01-14] MEDS: cloNIDine HCL 0.1 MG TAB PO SCH ×2 (08:24→12:45)
[2017-01-14] MEDS: SODIUM CHLORIDE 0.9% FLUSH 10 ML FLUSH IV FLUSH SCH (08:24)
[2017-01-14] MEDS ORDERED: GABA300C5 PO (09:11)
[2017-01-14] MEDS ORDERED: CLON.1 PO (09:11)
[2017-01-14] MEDS ORDERED: OXYC1TAB36 PO (09:11)
--- NOTE | 2017-01-14 09:15 | HHI.DS ---
Discharge Summary Admission Date Jan 10, 2017 at 12:12 Admitting Diagnosis acute kidney injury, dehydration, UTI, myalgias (1) CKD (chronic kidney disease) ICD Codes: N18.9 - Chronic kidney disease, unspecified Status: Chronic (2) UTI (urinary tract infection) Diagnosis: Principal ICD Codes: N39.0 - Urinary tract infection, site not specified Status: Resolved (3) Acute kidney injury ICD Codes: N17.9 - Acute kidney failure, unspecified Status: Resolved (4) Hypertension ICD Codes: I10 - Essential (primary) hypertension Status: Chronic CBC/BMP: 01/13/17 1336 01/13/17 1336 Significant Findings Laboratory Tests Test 01/13/17 13:36 01/13/17 19:08 Red Blood Count 3.55 MIL/MM3 (4.00-5.30) Hemoglobin 9.9 GM/DL (11.6-15.3) Hematocrit 30.9 % (35.0-46.0) Monocytes (%) (Auto) 8.4 % (0.0-8.0) Eosinophils (%) (Auto) 4.9 % (0.0-4.0) Random Glucose 113 MG/DL (74-106) Albumin 2.9 GM/DL (3.4-5.0) Calcium Level 8.0 MG/DL (8.5-10.1) Estimat Glomerular Filtration Rate 60 ML/MIN (>89) Erythrocyte Sedimentation Rate 42 mm/hr (0-30) PE at Discharge HEENT - AT/NC Resp - CTA CV - RRR without murmur rub or gallop Extrem - FROM Neuro - alert and oriented Hospital Course Patient was admitted with acute kidney injury and UTI. She received IV antibiotics and gently hydration and GLORIA resolved. The UTI responded to antibiotics and she is back to her baseline. She was seen in consultation by Neuro and will need F/U with Dr. Mustafa in 2-3 weeks. She is for D/C today to SNF and we will F/U with her in the facility. Pt Condition on Discharge: Fair Discharge Disposition: Discharge to SNF Discharge Instructions DIET: Follow Instructions for: Heart Healthy Diet Activities you can perform: Regular-No Restrictions, Full Weight Bearing Armando Torres Jan 14, 2017 09:15
[2017-01-14 12:00] VITALS: BP 115/69; PULSE 72; RESP 16; TEMP 97; O2SAT 94
[2017-01-14] MEDS: CIPROFLOXACIN 400 MG PREMIX 200 ML IV SCH (12:45)
[2017-01-15 11:52] LABS: ANA SCREEN NEG (NEG)
== END 2017-01-14 16:12 | DRG 683 ==
LOC: NEPC 00:32 → NEDA 05:39 → NEPGCP 06:53 → OBSVTOIN 12:12 → N06A 20:00
PROVIDERS: ADMIT Family Medicine; ATTEND Family Medicine
DX: N17.9 Acute kidney failure, unspecified (principal); N39.0 Urinary tract infection, site not specified; I48.91 Unspecified atrial fibrillation; E86.0 Dehydration; I12.9 Hypertensive chronic kidney disease with stage 1 through stage 4 chronic kidney disease, or unspecified chronic kidney disease; F32.9 Major depressive disorder, single episode, unspecified; G89.29 Other chronic pain; M54.5 Low back pain; E89.0 Postprocedural hypothyroidism; F41.9 Anxiety disorder, unspecified; N18.4 Chronic kidney disease, stage 4 (severe); K21.9 Gastro-esophageal reflux disease without esophagitis; I25.10 Atherosclerotic heart disease of native coronary artery without angina pectoris; J44.9 Chronic obstructive pulmonary disease, unspecified; Z79.01 Long term (current) use of anticoagulants; Z79.82 Long term (current) use of aspirin
CPT/HCPCS: 71010; 72158; 76937; 80048; 80053; 81001; 82550; 82607; 83605; 84443; 85025; 85652; 86038; 86430; 86592; 87086; 87804; 90471; 90472; 90686; 90732; 93005; 99285; A9579; G0008; G0009; J0696; J0744; J2060; J2270; J3010; J7030; Q2038

== ENCOUNTER 2017-01-31 23:22 | Observation (INO) | payer MEDICARE, MEDICAID ==
[~2017-01-31] VITALS: Ht 170.2 cm; Wt 87.0 kg
[~2017-01-31 23:22] MED LIST changes: +CLON.1 PO; -MSIR15 INTRACATH; +OXYC1TAB36 PO; -PERC10TA27 PO
[2017-01-31 23:26] VITALS: BP 143/92; PULSE 102; RESP 16; TEMP 98.1; O2SAT 96
[2017-01-31] MEDS ORDERED: ZOFR4TAB PO (23:38)
[2017-01-31] MEDS ORDERED: METH10TA PO (23:38)
[2017-02-01] VITALS (11 sets, daily range): BP systolic 131–167; BP diastolic 74–93; PULSE 81–97; RESP 18; TEMP 98.1; O2SAT 93–96
[2017-02-01] MEDS ORDERED: ASPIRIN 81 MG CHEW TAB CHEW ONE (00:15)
--- NOTE | 2017-02-01 00:26 | PD ---
HPI Chief Complaint: Pain: Acute or Chronic Time Seen by Provider: 23:42 Travel History International Travel<30 days: No Contact w/Intl Traveler<30days: No Traveled to known affect area: No History of Present Illness HPI The patient is a 61 year old female who presents to the [facility] emergency department with a history of multiple systemic complaints, the first of which is chest pain. The patient reports that she has a left-sided chest pain that began at approximately 3 PM today. The patient reports that the pain as an aching sensation. She denies radiation of the pain. She reports that she has had shortness of breath with exertion today. The patient is unsure what makes the pain worse, however she said that the pain seems to improve with resting. She reports that she does have a history of coronary artery disease on cardiac catheterization done approximately 5 years ago. She reports that she had a reported 20% blockage. She denies any prior history of myocardial infarction. She denies any prior history of hypertension. She reports that she does have a history of hyperlipidemia. She reports that she last had a stress test done 5 years ago. She reports that her primary care physician is Dr. Griffin. The patient incidentally also reports that she has left hip pain. She reports that the left hip pain began today. She reports that she was concerned that it may be related to tripping, however she does not recall tripping. She reports that she has difficulty with her memory due to being on multiple sedative medications including gabapentin, morphine pain,, and Percocet. She also reports that her pain management doctor, Dr. Cunningham started her on methadone which she took for the first time today. She reports that about an hour after taking the methadone she began to have nausea and vomiting. She reports that she's had nausea and vomiting approximately 5 times since then. She reports that she took a leftover Zofran which seems to have helped some with the nausea. The patient incidentally also reports having a headache and neck pain. On review of systems otherwise, the patient denies having any recent known fevers, cough, congestion, abdominal pain, diarrhea, urinary symptoms, or new neurologic symptoms. The patient reports that she has problems with chronic constipation. Her last bowel movement was 2 days ago. [facility] Past Medical History Narrative Medical The patient's past medical history is significant for chronic back pain. The patient reports that she has neuropathy that involves bilateral lower extremities, history of hyperlipidemia, hypothyroid disorder, seasonal allergies , anxiety and depression, COPD, coronary artery disease, thyroid cancer, migraine headaches, acid reflux Hx Anticoagulant Therapy: Yes Arthritis: Yes Asthma: No Atrial Fibrillation: Yes Autoimmune Disease: No Blood Disorders: No Anxiety: Yes Depression: Yes Heart Rhythm Problems: Yes Cancer: Yes (thyroid cancer) Cardiac Catheterization: Yes (20 % CLOGGED ) Cardiovascular Problems: Yes (HTN) High Cholesterol: Yes Chemotherapy: No Chest Pain: Yes Congestive Heart Failure: No COPD: Yes Cerebrovascular Accident: No Coronary Artery Disease: Yes Diabetes: No Diminished Hearing: No Endocrine: Yes Gastrointestinal Disorders: Yes GERD: Yes Glaucoma: No Genitourinary: Yes Headaches: No Hepatitis: No Hiatal Hernia: No Hypertension: Yes Immune Disorder: No Implanted Vascular Access Dvce: Yes (MORPHINE PUMP) Kidney Stones: No Medical other: Yes (GERD, HX ULCERS ; ARTHRITIS) Musculoskeletal: Yes Neurologic: Yes (reports seizures) Psychiatric: No Reproductive: No Respiratory: Yes (ASHTMA) Migraines: Yes Myocardial Infarction: No Radiation Therapy: No Renal Failure: No Seizures: No Sickle Cell Disease: No Sleep Apnea: No Thyroid Disease: Yes (thyroidectomy, from thyroid cancer) Ulcer: Yes PNEUMOCCOCAL Vaccine (Year): 2 Menopausal: Yes Tubal Ligation: Yes Past Surgical History Narrative Surgical The patient's past surgical history is significant for Abdominal Surgery: Yes (STOMACH SURGERY FOR ACID REFLUX) AICD: No Appendectomy: No Arteriovenous Shunt: No Body Medical Devices: morphine pain pump implanted in lower back Cardiac Surgery: No Cholecystectomy: Yes Coronary Artery Bypass Graft: No Ear Surgery: No Endocrine Surgery: Yes (THYROIDECTOMY RELATED TO CANCER) Eye Surgery: No Genitourinary Surgery: No Gynecologic Surgery: Yes (TUBAL LIG.) Hysterectomy: Yes Insulin Pump: No Joint Replacement: No Neurologic Surgery: No Oral Surgery: Yes Pacemaker: No Thoracic Surgery: Yes Tonsillectomy: Yes Other Surgery: Yes (THYROIDECTOMY) Social History Alcohol Use: No Tobacco Use: No Substance Use: No Allergies-Medications (Allergen,Severity, Reaction): Coded Allergies: codeine (Unverified Allergy, Severe, NAUSEA, 01/31/17) cyclobenzaprine (Unverified Allergy, Severe, 01/31/17) paroxetine (Unverified Allergy, Severe, 01/31/17) sulfamethoxazole (Unverified Allergy, Severe, 01/31/17) trimethoprim (Unverified Allergy, Severe, 01/31/17) Reported Meds & Prescriptions Reported Meds & Active Scripts Active Oxycodone-Acetaminophen 10-325 mg Tab 1 Tab PO Q4H PRN 5 Days Catapres (Clonidine) 0.1 Mg Tab 0.1 Mg PO TID MDD 0.9 quantity 30 Days Gabapentin 300 Mg Cap 600 Mg PO BID Reported Methadone (Methadone HCl) 10 Mg Tab 10 Mg PO TID Methadone (Methadone HCl) 10 Mg Tab 10 Mg PO TID Zofran (Ondansetron HCl) 4 Mg Tab 4 Mg PO Q12HR PRN Cetirizine-Pseudoephedrine 12 HR 5-120 Mg Tab 1 Tab PO HS Trazodone (Trazodone HCl) 100 Mg Tablet 200 Mg PO HS Aspir-81 (Aspirin) 81 Mg Tabdr 1 Tab PO HS Ibuprofen 600 Mg Tab 600 Mg PO Q8HR PRN Levothyroxine (Levothyroxine Sodium) 200 Mcg Tab 200 Mcg PO DAILY Seroquel (Quetiapine Fumarate) 300 Mg Tab 300 Mg PO DAILY Review of Systems Except as stated in HPI: all other systems reviewed are Neg General / Constitutional: No: Fever Eyes: No: Visual changes HENT: No: Headaches, Congestion Cardiovascular: Positive: Chest Pain or Discomfort Respiratory: Positive: Shortness of Breath, No: Cough Gastrointestinal: Positive: Nausea, Vomiting, Constipation, No: Diarrhea, Abdominal Pain, Hematemesis, Hematochezia, Changes in Bowel Habits, Indigestion , Loss of Appetite Genitourinary: No: Dysuria Musculoskeletal: No: Pain Skin: No Rash Neurologic: No: Weakness Psychiatric: No: Depression Endocrine: No: Polydipsia Hematologic/Lymphatic: No: Easy Bruising Physical Exam Narrative General: The patient is a well-developed well-nourished female in no acute distress. Head and Neck exam: Head is normocephalic atraumatic. Eyes: EOMI, pupils are equal round and reactive to light. Nose: Midline septum with pink mucous membranes Mouth: Dentition unremarkable. Moist mucus membranes. Posterior oropharynx is not erythematous. No tonsillar hypertrophy. Uvula midline. Airway patent. Neck: No palpable lymphadenopathy. No nuchal rigidity. No thyromegaly. Cardiovascular: Regular rate and rhythm without murmurs, gallops, or rubs. No pulse deficit to the extremities. Lungs: Clear to auscultation bilaterally. No wheezes, rhonchi, or rales. Abdomen: Soft, without tenderness to palpation in all 4 quadrants of the abdomen. No guarding, rebound, or rigidity. Normal bowel sounds are audible. No tenderness on palpation of McBurney's point. Extremities: No clubbing, cyanosis, or edema. 2+ pulses in all 4 extremities. The patient reports having pain in the left hip with palpation of the lateral aspect of the hip. There is no erythema or ecchymosis. The patient has no loss of range of motion. The patient has no increased pain with internal and external rotation of the left hip. There is no shortening. Back: No spinous process tenderness to palpation. Left-sided CVA tenderness on palpation. Neurologic Exam: Grossly nonfocal. The patient is able to stand and ambulate. She does report having left lateral hip pain with standing. Skin Exam: No rash noted. Intact skin that is warm and dry. Data Data Last Documented VS Vital Signs Date Time Temp Pulse Resp B/P (MAP) Pulse Ox O2 Delivery O2 Flow Rate FiO2 02/01/17 01:27 94 18 151/86 (107) 93 Nasal Cannula 2.00 01/31/17 23:26 98.1 Orders Orders Electrocardiogram (02/01/17:14) Complete Blood Count With Diff (02/01/17:14) Comprehensive Metabolic Panel (02/01/17:14) Creatine Kinase (Cpk) (02/01/17:14) Ckmb (Isoenzyme) Profile (02/01/17:14) Troponin I (02/01/17:14) B-Type Natriuretic Peptide (02/01/17:14) Prothrombin Time / Inr (Pt) (02/01/17:14) Act Partial Throm Time (Ptt) (02/01/17:14) Lipase (02/01/17:14) Urinalysis - C+S If Indicated (02/01/17:14) Magnesium (Mg) (02/01/17:14) Chest, Single Ap (02/01/17:14) Iv Access Insert/Monitor (02/01/17:14) Ecg Monitoring (10/30/17 00:14) Oximetry (02/01/17 00:14) Hip, Uni(Ap&Lat) W Ap Pelvis (02/01/17 00:14) Aspirin Chew (Aspirin Chew) (02/01/17 00:15) CKMB (02/01/17 00:25) CKMB% (02/01/17 00:25) Nitroglycerin 2% Oint (Nitroglycerin 2% (02/01/17 02:15) Admit Order (Ed Use Only) (02/01/17 02:16) Labs Laboratory Tests Test 02/01/17 00:25 White Blood Count 3.8 TH/MM3 Red Blood Count 3.56 MIL/MM3 Hemoglobin 10.2 GM/DL Hematocrit 30.9 % Mean Corpuscular Volume 86.8 FL Mean Corpuscular Hemoglobin 28.7 PG Mean Corpuscular Hemoglobin Concent 33.1 % Red Cell Distribution Width 15.4 % Platelet Count 149 TH/MM3 Mean Platelet Volume 8.7 FL Neutrophils (%) (Auto) 45.0 % Lymphocytes (%) (Auto) 35.0 % Monocytes (%) (Auto) 15.3 % Eosinophils (%) (Auto) 3.6 % Basophils (%) (Auto) 1.1 % Neutrophils # (Auto) 1.7 TH/MM3 Lymphocytes # (Auto) 1.3 TH/MM3 Monocytes # (Auto) 0.6 TH/MM3 Eosinophils # (Auto) 0.1 TH/MM3 Basophils # (Auto) 0.0 TH/MM3 CBC Comment DIFF FINAL Differential Comment Prothrombin Time 10.5 SEC Prothromb Time International Ratio 1.0 RATIO Activated Partial Thromboplast Time 25.4 SEC Urine Color YELLOW Urine Turbidity CLEAR Urine pH 6.0 Urine Specific [place] 1.025 Urine Protein 30 mg/dL Urine Glucose (UA) NEG mg/dL Urine Ketones NEG mg/dL Urine Occult Blood NEG Urine Nitrite NEG Urine Bilirubin NEG Urine Urobilinogen 2.0 MG/DL Urine Leukocyte Esterase SMALL Urine RBC LESS THAN 1 /hpf Urine WBC 3 /hpf Urine Squamous Epithelial Cells <1 /hpf Urine Renal Epithelial Cells <1 /hpf Urine Hyaline Casts 1 /lpf Urine Mucus FEW /lpf Microscopic Urinalysis Comment CULT NOT INDICATED Blood Urea Nitrogen 13 MG/DL Creatinine 1.05 MG/DL Random Glucose 89 MG/DL Total Protein 8.0 GM/DL Albumin 3.2 GM/DL Calcium Level 8.1 MG/DL Magnesium Level 1.9 MG/DL Alkaline Phosphatase 76 U/L Aspartate Amino Transf (AST/SGOT) 22 U/L Alanine Aminotransferase (ALT/SGPT) 16 U/L Total Bilirubin 0.2 MG/DL Sodium Level 141 MEQ/L Potassium Level 3.9 MEQ/L Chloride Level 107 MEQ/L Carbon Dioxide Level 28.4 MEQ/L Anion Gap 6 MEQ/L Estimat Glomerular Filtration Rate 53 ML/MIN Total Creatine Kinase 128 U/L Creatine Kinase MB 2.6 NG/ML Troponin I LESS THAN 0.02 NG/ML B-Type Natriuretic Peptide 165 PG/ML Lipase 59 U/L [facility] Medical Decision Making Medical Screen Exam Complete: Yes Emergency Medical Condition: Yes Medical Record Reviewed: Yes Interpretation(s) Last Impressions Hip and Pelvis X-Ray 02/01/1713 Signed Impressions: Service Date/Time: Tuesday, January 31, 2017 23:28 - CONCLUSION: Unremarkable examination of the left hip. Bry Case MD Chest X-Ray 02/01/1713 Signed Impressions: Service Date/Time: Tuesday, January 31, 2017 23:28 - CONCLUSION: Mild symmetric interstitial infiltrates Bry Case MD Differential Diagnosis Acute coronary syndrome, versus acid reflux, versus medication side effect Narrative Course During the course of the patients emergency department visit, the patients history, examination, and differential diagnosis were reviewed with the patient. The patient was placed on a environmental resource specialist with oximetry and frequent blood pressure monitoring. The patient had IV access obtained and blood work sent for analysis. The patient was placed on a environmental resource specialist with oximetry and blood pressure monitoring. An ECG was done on arrival. The patient's ECG reveals a sinus rhythm heart rate of 89, QRS duration is 88 ms, QTC [address] segment elevation. T waves are inverted in V1. The patient was initially provided aspirin 324 mg by mouth 1, nitroglycerin 1 inch the chest wall. The patients laboratory studies were reviewed and remarkable for a white count of 3.8, hemoglobin 10.2, platelets 149 with 15.3 monocytes, CMP is remarkable for creatinine 1.05, GFR 53, calcium 8.1, CPK 128, troponin I is less than 0.02 , BNP is 165, lipase 59, urinalysis shows 30 protein, small leukocyte esterase, otherwise unremarkable Radiology studies were reviewed and remarkable for a left hip and pelvis x-ray that showed no acute abnormality, chest x-ray showed what appeared to be atelectasis. Given the patient's prior history of reported coronary artery disease on cardiac catheterization and no recent stress testing, the patient will be admitted to the hospital for rule out serial cardiac enzyme protocol followed by stress testing. Regarding the patient's nausea and vomiting one hour after taking methadone for the first time, I suspect that this is related to a medication side effect. The patient has had no further episodes of vomiting while in the emergency department. The patients results were discussed with the patient, including the plan of care. I explained that further testing and/ or monitoring is indicated based on the patients history, examination, and/ or laboratory findings. Therefore, I recommended admission for additional evaluation. The patient expressed understanding and was agreeable with this plan. The patient was admitted to the hospital in stable condition and sent to a bed under the care of the chest pain center. Diagnosis Primary Impression: Chest pain, rule out acute myocardial infarction Additional Impression: Medication side effect Qualified Codes: T88.7XXA - Unspecified adverse effect of drug or medicament, initial encounter Admitting Information Admitting Physician Requests: Naomi Zimmerman MD Feb 01, 2017 00:26
--- NOTE | 2017-02-01 00:43 | RADRPT ---
EXAM DATE/TIME: 01/31/2017 23:28 [facility] COMPARISON: CHEST SINGLE AP, January 10, 2017, 2:12. INDICATIONS : Short of breath. MEDICAL HISTORY : None. SURGICAL HISTORY : None. ENCOUNTER: Initial ACUITY: 1 day PAIN SCORE: 0/10 LOCATION: Bilateral chest FINDINGS: Mild perihilar and upper lobe interstitial infiltrates present. No lobar consolidation or pleural eff usion. Cardiac mediastinal contours are grossly stable accounting for differences in technique and pr ojection. CONCLUSION: Mild symmetric interstitial infiltrates Bry Case MD on February 01, 2017 at 0:39 Board Certified Radiologist. This report was verified electronically.
--- NOTE | 2017-02-01 00:44 | RADRPT ---
EXAM DATE/TIME: 01/31/2017 23:28 [facility] COMPARISON: No previous studies available for comparison. INDICATIONS : Hip pain in left anterior hip. MEDICAL HISTORY : None. SURGICAL HISTORY : None. ENCOUNTER: Initial ACUITY: 1 day PAIN SCORE: 0/10 LOCATION: Left hip FINDINGS: Examination of the left hip was performed with AP Pelvis. The primary and secondary trabecular patte rn of the femoral neck is intact. The hip joint is of normal width without significant sclerosis or bony hypertrophy. The acetabulum is grossly intact. CONCLUSION: Unremarkable examination of the left hip. Bry Case MD on February 01, 2017 at 0:42 Board Certified Radiologist. This report was verified electronically.
[2017-02-01 00:50] LABS: BILIRUBIN, URINE NEG (NEG); BLOOD, URINE NEG (NEG); GLUCOSE,URINE NEG (NEG); HYALINE CAST, URINE 1 /lpf (RARE); KETONE, URINE NEG (NEG); MUCUS URINE FEW /lpf (OCC); NITRITE,URINE NEG (NEG); RENAL EPITHELIAL CELLS <1 /hpf; SQUAMOUS EPITHELIAL CELL URINE <1 /hpf (0-5); URINE COLOR YELLOW (YELLW/STRAW); URINE LEUKOCYTE ESTERASE SMALL (NEG)
[2017-02-01 00:52] LABS: AUTOMATED NEUTROPHIL # 1.7 TH/MM3 (1.8-7.7); BASOPHIL % 1.1 % (0.0-2.0); EOSINOPHIL # 0.1 TH/MM3 (0-0.4); EOSINOPHIL % 3.6 % (0.0-4.0); HEMATOCRIT 30.9 % (35.0-46.0); HEMOGLOBIN 10.2 GM/DL (11.6-15.3); LYMPHOCYTE # 1.3 TH/MM3 (1.0-4.8); MEAN CELL VOLUME 86.8 FL (80.0-100.0); MEAN CORPUSCULAR HEMOGLOBIN 28.7 PG (27.0-34.0); MEAN CORPUSCULAR HGB CONC 33.1 % (32.0-36.0); MEAN PLATELET VOLUME 8.7 FL (7.0-11.0); MONO % 15.3 % (0.0-8.0); MONOCYTE # 0.6 TH/MM3 (0-0.9); PLATELET COUNT 149 TH/MM3 (150-450); RED BLOOD COUNT 3.56 MIL/MM3 (4.00-5.30); RED CELL DISTRIBUTION WIDTH 15.4 % (11.6-17.2); WHITE BLOOD COUNT 3.8 TH/MM3 (4.0-11.0)
[2017-02-01 00:57] LABS: ALBUMIN 3.2 GM/DL (3.4-5.0); ALT (GPT) 16 U/L (10-53); AST (GOT) 22 U/L (15-37); BICARBONATE 28.4 MEQ/L (21.0-32.0); BLOOD UREA NITROGEN 13 MG/DL (7-18); CALCIUM 8.1 MG/DL (8.5-10.1); CHLORIDE 107 MEQ/L (98-107); CREATININE 1.05 MG/DL (0.50-1.00); GLOMERULAR FILTRATION RATE 53 ML/MIN (>89); GLUCOSE,RANDOM 89 MG/DL (74-106); LIPASE 59 U/L (73-393); MAGNESIUM 1.9 MG/DL (1.5-2.5); SODIUM (NA) 141 MEQ/L (136-145)
[2017-02-01 01:02] LABS: ALKALINE PHOSPHATASE 76 U/L (45-117); TOTAL BILIRUBIN ADULT 0.2 MG/DL (0.2-1.0); TROPONIN I LESS THAN 0.02 NG/ML (0.02-0.05)
[2017-02-01 01:10] LABS: PROTHROMBIN TIME - PATIENT 10.5 SEC (9.8-11.6)
[2017-02-01] MEDS ORDERED: METH10TA PO (01:35)
[2017-02-01] MEDS ORDERED: NITROGLYCERIN 2% OINT 1 GM PACKET TOPICAL ONE (02:15)
[2017-02-01] MEDS ORDERED: ACETAMINOPHEN 500 MG CPLT PO PRN (03:45)
[2017-02-01] MEDS ORDERED: SODIUM CHLORIDE 0.9% FLUSH 10 ML FLUSH IV FLUSH PRN (03:45)
[2017-02-01 04:38] LABS: TROPONIN I LESS THAN 0.02 NG/ML (0.02-0.05)
[2017-02-01 07:23] LABS: TROPONIN I LESS THAN 0.02 NG/ML (0.02-0.05)
[2017-02-01] MEDS ORDERED: NITROGLYCERIN 0.4 MG SL 25 TABS/BTL SL PRN (07:30)
[2017-02-01] MEDS ORDERED: ONDANSETRON HCL 4 MG/2 ML VIAL IV PUSH PRN (07:30)
--- NOTE | 2017-02-01 08:11 | HHI.HP ---
[facility] Primary Care Physician Adrien Griffin DO Chief Complaint Headache and chest pain History of Present Illness 61 year old female with history of hypothyroidism, chronic pain, GERD, and COPD presents to the ER for further evaluation of chest pain. Patient is a poor historian and frequently falls to sleep during interview. States "sorry, I have a headache and am really tired." Onset of chest pain began after taking first dose of Methadone yesterday. Locations chest of chest. Characterized as " someone sitting on my chest." No radiation of pain. Duration one hour. No associated symptoms of nausea, vomiting, dyspnea, or diaphorases. Endorses headache occurred at same time. Precipitating factors she relates to first dose of Methadone. No known relieving factors. Denies similar pain in the past. Denies following with a welding inspector. Denies any current chest pain, continues to have headache located in neck, back of head, frontal area, and eyes. Review of Systems General: No weakness, fever, chills, recent illness, or change in appetite. Follows with a pain management physician for chronic pain issues. Current fatigue she related to current headache and not sleeping last night. HEENT: Current FRASER since yesterday, history of migraines. Denies headache to be the worse pain ever. No vision changes. CV: As stated above. No current CP, pressure, or tightness. RESP: No SOB, cough, or sputum production. History of COPD. GI: No nausea, vomiting, or bowel changes. : No dysuria, urgency, frequency. Endorses recently hospitalized for a UTI. EXT: Following with neurology due to paraesthesias right lower leg. Stating " the doctors can't figure out why my leg is numb." MS: Chronic neck and back pain, history of multiple lumbar surgeries. Follows with Dr. Cunningham for pain management. Ambulated independently without the need of a cane or walker. NEURO: No dizziness, difficulty with balance, or LOC. PSYCH: History of anxiety and depression stable on current medication regimen. SKIN: No rashes, no concerning lesions Past Family Social History Allergies: Coded Allergies: codeine (Unverified Allergy, Severe, NAUSEA, 01/31/17) cyclobenzaprine (Unverified Allergy, Severe, 01/31/17) paroxetine (Unverified Allergy, Severe, 01/31/17) sulfamethoxazole (Unverified Allergy, Severe, 01/31/17) trimethoprim (Unverified Allergy, Severe, 01/31/17) Past Medical History Hypothyroidism, HLD, COPD, anxiety, depression, GERD, chronic pain, hyperlipidemia Past Surgical History Lumbar surgeries x4, tubal ligation, thyroidectomy, cholecystectomy Reported Medications Reported Meds & Active Scripts Active Oxycodone-Acetaminophen 10-325 mg Tab 1 Tab PO Q4H PRN 5 Days Catapres (Clonidine) 0.1 Mg Tab 0.1 Mg PO TID MDD 0.9 quantity 30 Days Gabapentin 300 Mg Cap 600 Mg PO BID Methadone (Methadone HCl) 10 Mg Tab 10 Mg PO TID Methadone (Methadone HCl) 10 Mg Tab 10 Mg PO TID Zofran (Ondansetron HCl) 4 Mg Tab 4 Mg PO Q12HR PRN Cetirizine-Pseudoephedrine 12 HR 5-120 Mg Tab 1 Tab PO HS Trazodone (Trazodone HCl) 100 Mg Tablet 200 Mg PO HS Aspir-81 (Aspirin) 81 Mg Tabdr 1 Tab PO HS Ibuprofen 600 Mg Tab 600 Mg PO Q8HR PRN Levothyroxine (Levothyroxine Sodium) 200 Mcg Tab 200 Mcg PO DAILY Seroquel (Quetiapine Fumarate) 300 Mg Tab 300 Mg PO DAILY Active Ordered Medications Current Medications Medications (Trade) Dose Ordered Sig/Obdulia Route Start Time Stop Time Status Last Admin (NS Flush) 2 ml UNSCH PRN IV FLUSH 02/01/17 03:45 (NS Flush) 2 ml BID IV FLUSH 02/01/17 09:00 (Tylenol) 500 mg Q4H PRN PO 02/01/17 03:45 02/01/17 06:47 (Zofran Inj) 4 mg Q6H PRN IV PUSH 02/01/17 07:30 (Nitrostat Sl) 0.4 mg Q5M PRN SL 02/01/17 07:30 (Aspirin) 325 mg DAILY PO 02/01/17 09:00 Family History Noncontributory for early onset cardiovascular disease. Social History Known hypertension and hyperlipidemia. Denies taking current medication for cholesterol management. No known diabetes. Lifelong nonsmoker. Denies any alcohol or illegal drug use. Past cardiac testing 08/11/2011 Lexiscan Normal examination without signs of ischemia. 08/2006 Cardiac catheterization (Dr. Rice) Conclusions 1. Noncardiac chest pain. 2. Normal coronary anatomy. 3. Normal left ventricular function. Reports following with Dr. Mendoza in the past, denies having a welding inspector currently. Physical Exam Vital Signs Vital Signs Date Time Temp Pulse Resp B/P (MAP) Pulse Ox O2 Delivery O2 Flow Rate FiO2 02/01/17 07:38 96 Nasal Cannula 2.00 02/01/17 07:34 81 02/01/17 05:06 98.1 93 18 136/74 (94) 93 02/01/17 04:35 94 02/01/17 04:07 86 18 144/82 (102) 94 Nasal Cannula 2.00 02/01/17 03:45 94 Nasal Cannula 2.00 02/01/17 02:33 97 18 167/93 (117) 95 Nasal Cannula 2.00 02/01/17 01:27 94 18 151/86 (107) 93 Nasal Cannula 2.00 02/01/17 00:08 96 18 131/89 (103) 94 Nasal Cannula 2.00 01/31/17 23:26 98.1 102 16 143/92 (109) 96 Room Air Physical Exam GENERAL: Alert, drowsy, poor historian, WN, WD, NAD, obese, female who appears older than stated age HEAD: NC, AT NECK: Supple, no masses, trachea midline CV: RRR, without murmur, rub, gallop, no JVD, S1-S2 no S3-S4. RESP: Clear lungs throughout bilateral, no crackles, wheeze, rhonchi, symmetrical chest rise, nonlabored, able to speak in full sentences ABD: Soft, NT, ND, no masses, positive bowel tones EXT: Pulses +24, trace bilateral lower leg edema MS: Normal tone 4 extremities, nontender, no obvious deformities, full range of motion NEURO: CN II through CN XII grossly intact, motor strength 5/5 PSYCH: A+O 3, flat affect, appropriate speech, insight and judgment questionable due to drowsy state. Able to discuss and understand plan of care. SKIN: Normal turgor, normal texture, no lesions, no rashes Laboratory Laboratory Tests Test 02/01/17 00:25 02/01/17 03:53 02/01/17 06:29 White Blood Count 3.8 Red Blood Count 3.56 Hemoglobin 10.2 Hematocrit 30.9 Mean Corpuscular Volume 86.8 Mean Corpuscular Hemoglobin 28.7 Mean Corpuscular Hemoglobin Concent 33.1 Red Cell Distribution Width 15.4 Platelet Count 149 Mean Platelet Volume 8.7 Neutrophils (%) (Auto) 45.0 Lymphocytes (%) (Auto) 35.0 Monocytes (%) (Auto) 15.3 Eosinophils (%) (Auto) 3.6 Basophils (%) (Auto) 1.1 Neutrophils # (Auto) 1.7 Lymphocytes # (Auto) 1.3 Monocytes # (Auto) 0.6 Eosinophils # (Auto) 0.1 Basophils # (Auto) 0.0 CBC Comment DIFF FINAL Differential Comment Prothrombin Time 10.5 Prothromb Time International Ratio 1.0 Activated Partial Thromboplast Time 25.4 Urine Color YELLOW Urine Turbidity CLEAR Urine pH 6.0 Urine Specific [place] 1.025 Urine Protein 30 Urine Glucose (UA) NEG Urine Ketones NEG Urine Occult Blood NEG Urine Nitrite NEG Urine Bilirubin NEG Urine Urobilinogen 2.0 Urine Leukocyte Esterase SMALL Urine RBC LESS THAN 1 Urine WBC 3 Urine Squamous Epithelial Cells <1 Urine Renal Epithelial Cells <1 Urine Hyaline Casts 1 Urine Mucus FEW Microscopic Urinalysis Comment CULT NOT INDICATED Blood Urea Nitrogen 13 Creatinine 1.05 Random Glucose 89 Total Protein 8.0 Albumin 3.2 Calcium Level 8.1 Magnesium Level 1.9 Alkaline Phosphatase 76 Aspartate Amino Transf (AST/SGOT) 22 Alanine Aminotransferase (ALT/SGPT) 16 Total Bilirubin 0.2 Sodium Level 141 Potassium Level 3.9 Chloride Level 107 Carbon Dioxide Level 28.4 Anion Gap 6 Estimat Glomerular Filtration Rate 53 Total Creatine Kinase 128 103 92 Creatine Kinase MB 2.6 2.0 Troponin I LESS THAN 0.02 LESS THAN 0.02 LESS THAN 0.02 B-Type Natriuretic Peptide 165 Lipase 59 Result Diagram: 02/01/172402/01/1724 Imaging Last Impressions Hip and Pelvis X-Ray 02/01/1713 Signed Impressions: Service Date/Time: Tuesday, January 31, 2017 23:28 - CONCLUSION: Unremarkable examination of the left hip. Bry Case MD Chest X-Ray 02/01/1713 Signed Impressions: Service Date/Time: Tuesday, January 31, 2017 23:28 - CONCLUSION: Mild symmetric interstitial infiltrates Bry Case MD Course EKG 1st AVB, no st t segment changes Caprini VTE Risk Assessment Caprini VTE Risk Assessment: No/Low Risk (score <= 1) Caprini Risk Assessment Model Point Value = 1 Point Value = 2 Point Value = 3 Point Value = 5 Age 41-60 Minor surgery BMI > 25 kg/m2 Swollen legs Varicose veins or History of unexplained or recurrent spontaneous Oral contraceptives or hormone replacement Sepsis (< 1 month) Serious lung disease, including pneumonia (< 1 month) Abnormal pulmonary function Acute myocardial infarction Congestive heart failure (< 1 month) History of inflammatory bowel disease Medical patient at bed rest Age 61-74 Arthroscopic surgery Major open surgery (> 45 min) Laparoscopic surgery (> 45 min) Malignancy Confined to bed (> 72 hours) Immobilizing plaster cast Central venous access Age >= 75 History of VTE Family history of VTE Factor V Leiden Prothrombin [id number] Lupus anticoagulant Anticardiolipin antibodies Elevated serum homocysteine Heparin-induced thrombocytopenia Other congenital or acquired thrombophilia Stroke (< 1 month) Elective arthroplasty Hip, pelvis, or leg fracture Acute spinal cord injury (< 1 month) Prophylaxis Regimen Total Risk Factor Score Risk Level Prophylaxis Regimen 0-1 Low Early ambulation 2 Moderate Order ONE of the following: *Sequential Compression Device (SCD) *Heparin 5000 units SQ BID 3-4 Higher Order ONE of the following medications: *Heparin 5000 units SQ TID *Enoxaparin/Lovenox 40 mg SQ daily (WT < 150 kg, CrCl > 30 mL/min) *Enoxaparin/Lovenox 30 mg SQ daily (WT < 150 kg, CrCl > 10-29 mL/min) *Enoxaparin/Lovenox 30 mg SQ BID (WT < 150 kg, CrCl > 30 mL/min) AND/OR *Sequential Compression Device (SCD) 5 or more Highest Order ONE of the following medications: *Heparin 5000 units SQ TID (Preferred with Epidurals) *Enoxaparin/Lovenox 40 mg SQ daily (WT < 150 kg, CrCl > 30 mL/min) *Enoxaparin/Lovenox 30 mg SQ daily (WT < 150 kg, CrCl > 10-29 mL/min) *Enoxaparin/Lovenox 30 mg SQ BID (WT < 150 kg, CrCl > 30 mL/min) AND *Sequential Compression Device (SCD) Assessment and Plan Assessment and Plan #1 Chest pain-admitted to chest pain center. Ruled out with 3 ses of EKGs, cardiac enzymes, and monitored overnight. Seen and evaluated by Dr. Taiwo Sosa. Proceed with chemical stress test. If unremarkable, plans to discharge home with follow up with PCP. #2 Cephalgia-original plan to give hydromorphone, however due to allergy Toradol 30mg IVx1 ordered. #3 Chronic pain-instructed to stop taking Methadone, notify pain Md of suspected reaction to Methadone, and to follow up with Dr. Cunningham #4 Hypertension-continue to monitor #5 Adverse reaction to Methadone-stop Methadone 10:50 Notified by RN patient will not complete chemical stress testing due to anxiety. Ativan 0.5mg x1 dose IV ordered. 14:30 Lexiscan results unremarkable. Discussed with patient. Patient continues to complain of headache, similar to migraines she normally has. Requesting Percocet before discharge stating she normally takes a Percocet when she develops severe headaches. Discussed her allergy to codeine, states she tolerates Percocet. Dejah Parker Feb 01, 2017 08:11
--- NOTE | 2017-02-01 08:18 | HHI.HP ---
History of Present Illness Service [facility] Primary Care Physician Adrien Griffin, DO Admission Diagnosis cp r/o PR Diagnoses: (1) Adverse reaction to methadone Diagnosis: Principal (2) Nausea & vomiting Diagnosis: Secondary (3) Chest pain, unspecified Diagnosis: Secondary Review of Systems ROS Limitations: Clinical Condition Constitutional: DENIES: Diaphoretic episodes, Fatigue, Fever, Weight gain, Weight loss, Chills, Dizziness, Change in appetite, Night Sweats Endocrine: DENIES: Abnorml menstrual pattern, Heat/cold intolerance, Polydipsia , Polyuria, Polyphagia Eyes: DENIES: Blurred vision, Diplopia, Eye inflammation, Eye pain, Vision loss , Photosensitivity, Double Vision Ears, nose, mouth, throat: DENIES: Tinnitus, Hearing loss, Vertigo, Nasal discharge, Oral lesions, Throat pain, Hoarseness, Ear Pain, Running Nose, Epistaxis, Sinus Pain, Toothache, Odynophagia Respiratory: DENIES: Apneas, Cough, Snoring, Wheezing, Hemoptysis, Sputum production, Shortness of breath Cardiovascular: COMPLAINS OF: Chest pain Gastrointestinal: COMPLAINS OF: Nausea Genitourinary: DENIES: Abnormal vaginal bleeding, Dysmenorrhea, Dyspareunia, Sexual dysfunction, Urinary frequency, Urinary incontinence, Urgency, Hematuria , Dysuria, Nocturia, Vaginal discharge Musculoskeletal: COMPLAINS OF: Joint pain Integumentary: DENIES: Abnormal pigmentation, Pruritus, Rash, Nail changes, Breast masses, Breast skin changes, Nipple discharge Hematologic/lymphatic: DENIES: Bruising, Lymphadenopathy Immunologic/allergic: DENIES: Eczema, Urticaria Neurologic: DENIES: Abnormal gait, Headache, Localized weakness, Paresthesias, Seizures, Speech Problems, Tremor, Poor Balance Psychiatric: DENIES: Anxiety, Confusion, Mood changes, Depression, Hallucinations, Agitation, Suicidal Ideation, Homicidal Ideation, Delusions Past Family Social History Allergies: Coded Allergies: codeine (Unverified Allergy, Severe, NAUSEA, 01/31/17) cyclobenzaprine (Unverified Allergy, Severe, 01/31/17) paroxetine (Unverified Allergy, Severe, 01/31/17) sulfamethoxazole (Unverified Allergy, Severe, 01/31/17) trimethoprim (Unverified Allergy, Severe, 01/31/17) Past Medical History Chronic pain syndrome followed by Dr. Cunningham. She has H/O CAD with minimal blockage 5 years ago per patient. Past Surgical History Current Medications Medications (Trade) Dose Ordered Sig/Obdulia Route Start Time Stop Time Status Last Admin (NS Flush) 2 ml UNSCH PRN IV FLUSH 02/01/17 03:45 (NS Flush) 2 ml BID IV FLUSH 02/01/17 09:00 (Tylenol) 500 mg Q4H PRN PO 02/01/17 03:45 02/01/17 06:47 (Zofran Inj) 4 mg Q6H PRN IV PUSH 02/01/17 07:30 (Nitrostat Sl) 0.4 mg Q5M PRN SL 02/01/17 07:30 (Aspirin) 325 mg DAILY PO 02/01/17 09:00 Active Ordered Medications Current Medications Medications (Trade) Dose Ordered Sig/Obdulia Route Start Time Stop Time Status Last Admin (NS Flush) 2 ml UNSCH PRN IV FLUSH 02/01/17 03:45 (NS Flush) 2 ml BID IV FLUSH 02/01/17 09:00 (Tylenol) 500 mg Q4H PRN PO 02/01/17 03:45 02/01/17 06:47 (Zofran Inj) 4 mg Q6H PRN IV PUSH 02/01/17 07:30 (Nitrostat Sl) 0.4 mg Q5M PRN SL 02/01/17 07:30 (Aspirin) 325 mg DAILY PO 02/01/17 09:00 Family History Noncontributory to this event Social History Denies ETOH and Cigs Physical Exam Vital Signs Vital Signs Date Time Temp Pulse Resp B/P (MAP) Pulse Ox O2 Delivery O2 Flow Rate FiO2 02/01/17 07:38 96 Nasal Cannula 2.00 02/01/17 07:34 81 02/01/17 05:06 98.1 93 18 136/74 (94) 93 02/01/17 04:35 94 02/01/17 04:07 86 18 144/82 (102) 94 Nasal Cannula 2.00 02/01/17 03:45 94 Nasal Cannula 2.00 02/01/17 02:33 97 18 167/93 (117) 95 Nasal Cannula 2.00 02/01/17 01:27 94 18 151/86 (107) 93 Nasal Cannula 2.00 02/01/17 00:08 96 18 131/89 (103) 94 Nasal Cannula 2.00 01/31/17 23:26 98.1 102 16 143/92 (109) 96 Room Air Physical Exam GENERAL: This is a well-nourished, well-developed patient, in no apparent distress. SKIN: No rashes, ecchymoses or lesions. Cool and dry. HEAD: Atraumatic. Normocephalic. No temporal or scalp tenderness. EYES: Pupils equal round and reactive. Extraocular motions intact. No scleral icterus. No injection or drainage. ENT: Nose without bleeding, purulent drainage or septal hematoma. Throat without erythema, tonsillar hypertrophy or exudate. Uvula midline. Airway patent. NECK: Trachea midline. No JVD or lymphadenopathy. Supple, nontender, no meningeal signs. CARDIOVASCULAR: Regular rate and rhythm without murmurs, gallops, or rubs. RESPIRATORY: Clear to auscultation. Breath sounds equal bilaterally. No wheezes , rales, or rhonchi. GASTROINTESTINAL: Abdomen soft, non-tender, nondistended. No hepato-splenomegaly , or palpable masses. No guarding. MUSCULOSKELETAL: Extremities without clubbing, cyanosis, with trace edema. Point tenderness over left hip without deformity or LROM. No calf tenderness. NEUROLOGICAL: Awake and alert. Cranial nerves II through XII intact. Motor and sensory grossly within normal limits. Five out of 5 muscle strength in all muscle groups. Normal speech. Laboratory Laboratory Tests Test 02/01/17 00:25 02/01/17 03:53 02/01/17 06:29 White Blood Count 3.8 Red Blood Count 3.56 Hemoglobin 10.2 Hematocrit 30.9 Mean Corpuscular Volume 86.8 Mean Corpuscular Hemoglobin 28.7 Mean Corpuscular Hemoglobin Concent 33.1 Red Cell Distribution Width 15.4 Platelet Count 149 Mean Platelet Volume 8.7 Neutrophils (%) (Auto) 45.0 Lymphocytes (%) (Auto) 35.0 Monocytes (%) (Auto) 15.3 Eosinophils (%) (Auto) 3.6 Basophils (%) (Auto) 1.1 Neutrophils # (Auto) 1.7 Lymphocytes # (Auto) 1.3 Monocytes # (Auto) 0.6 Eosinophils # (Auto) 0.1 Basophils # (Auto) 0.0 CBC Comment DIFF FINAL Differential Comment Prothrombin Time 10.5 Prothromb Time International Ratio 1.0 Activated Partial Thromboplast Time 25.4 Urine Color YELLOW Urine Turbidity CLEAR Urine pH 6.0 Urine Specific [place] 1.025 Urine Protein 30 Urine Glucose (UA) NEG Urine Ketones NEG Urine Occult Blood NEG Urine Nitrite NEG Urine Bilirubin NEG Urine Urobilinogen 2.0 Urine Leukocyte Esterase SMALL Urine RBC LESS THAN 1 Urine WBC 3 Urine Squamous Epithelial Cells <1 Urine Renal Epithelial Cells <1 Urine Hyaline Casts 1 Urine Mucus FEW Microscopic Urinalysis Comment CULT NOT INDICATED Blood Urea Nitrogen 13 Creatinine 1.05 Random Glucose 89 Total Protein 8.0 Albumin 3.2 Calcium Level 8.1 Magnesium Level 1.9 Alkaline Phosphatase 76 Aspartate Amino Transf (AST/SGOT) 22 Alanine Aminotransferase (ALT/SGPT) 16 Total Bilirubin 0.2 Sodium Level 141 Potassium Level 3.9 Chloride Level 107 Carbon Dioxide Level 28.4 Anion Gap 6 Estimat Glomerular Filtration Rate 53 Total Creatine Kinase 128 103 92 Creatine Kinase MB 2.6 2.0 Troponin I LESS THAN 0.02 LESS THAN 0.02 LESS THAN 0.02 B-Type Natriuretic Peptide 165 Lipase 59 Result Diagram: 02/01/175 02/01/1724 Imaging Last 24 hours Impressions Hip and Pelvis X-Ray 02/01/1713 Signed Impressions: Service Date/Time: Tuesday, January 31, 2017 23:28 - CONCLUSION: Unremarkable examination of the left hip. Bry Case MD Chest X-Ray 02/01/1713 Signed Impressions: Service Date/Time: Tuesday, January 31, 2017 23:28 - CONCLUSION: Mild symmetric interstitial infiltrates Bry Case MD Course She presented following first dose of methadone and presented with nausea and vaimiting with CP that has resolved with antiemetics and discontinuation of methadone. Caprini VTE Risk Assessment Caprini VTE Risk Assessment: No/Low Risk (score <= 1) Caprini Risk Assessment Model Point Value = 1 Point Value = 2 Point Value = 3 Point Value = 5 Age 41-60 Minor surgery BMI > 25 kg/m2 Swollen legs Varicose veins or History of unexplained or recurrent spontaneous Oral contraceptives or hormone replacement Sepsis (< 1 month) Serious lung disease, including pneumonia (< 1 month) Abnormal pulmonary function Acute myocardial infarction Congestive heart failure (< 1 month) History of inflammatory bowel disease Medical patient at bed rest Age 61-74 Arthroscopic surgery Major open surgery (> 45 min) Laparoscopic surgery (> 45 min) Malignancy Confined to bed (> 72 hours) Immobilizing plaster cast Central venous access Age >= 75 History of VTE Family history of VTE Factor V Leiden Prothrombin [id number] Lupus anticoagulant Anticardiolipin antibodies Elevated serum homocysteine Heparin-induced thrombocytopenia Other congenital or acquired thrombophilia Stroke (< 1 month) Elective arthroplasty Hip, pelvis, or leg fracture Acute spinal cord injury (< 1 month) Prophylaxis Regimen Total Risk Factor Score Risk Level Prophylaxis Regimen 0-1 Low Early ambulation 2 Moderate Order ONE of the following: *Sequential Compression Device (SCD) *Heparin 5000 units SQ BID 3-4 Higher Order ONE of the following medications: *Heparin 5000 units SQ TID *Enoxaparin/Lovenox 40 mg SQ daily (WT < 150 kg, CrCl > 30 mL/min) *Enoxaparin/Lovenox 30 mg SQ daily (WT < 150 kg, CrCl > 10-29 mL/min) *Enoxaparin/Lovenox 30 mg SQ BID (WT < 150 kg, CrCl > 30 mL/min) AND/OR *Sequential Compression Device (SCD) 5 or more Highest Order ONE of the following medications: *Heparin 5000 units SQ TID (Preferred with Epidurals) *Enoxaparin/Lovenox 40 mg SQ daily (WT < 150 kg, CrCl > 30 mL/min) *Enoxaparin/Lovenox 30 mg SQ daily (WT < 150 kg, CrCl > 10-29 mL/min) *Enoxaparin/Lovenox 30 mg SQ BID (WT < 150 kg, CrCl > 30 mL/min) AND *Sequential Compression Device (SCD) Assessment and Plan Problem List: (1) Hip pain, left ICD Codes: M25.552 - Pain in left hip Status: Acute Plan: xray is negative (2) Nausea & vomiting ICD Codes: R11.2 - Nausea with vomiting, unspecified Status: Acute Plan: continue antiemetics as needed (3) Adverse reaction to methadone ICD Codes: T40.3X5A - Adverse effect of methadone, initial encounter Status: Acute Plan: Cont to hold Methadone (4) Chest pain ICD Codes: R07.9 - Chest pain, unspecified Status: Acute Plan: Monitor as CP has resolved without treatment Discussed Condition With family Discharge Planning Will monitor closely today and D./C home if sx do not recur and she remains stable today Problem Qualifiers (1) Adverse reaction to methadone: Qualified Codes: T40.3X5A - Adverse effect of methadone, initial encounter (2) Nausea & vomiting: (3) Chest pain, unspecified: Qualified Codes: R07.89 - Other chest pain (4) Chest pain: Qualified Codes: R07.89 - Other chest pain Armando Torres Feb 01, 2017 08:18
[2017-02-01] MEDS ORDERED: KETOROLAC TROMETHAMINE 30 MG/ML (IVP) VIAL IV PUSH ONE (08:45)
[2017-02-01] MEDS ORDERED: SODIUM CHLORIDE 0.9% FLUSH 10 ML FLUSH IV FLUSH SCH (09:00)
[2017-02-01] MEDS ORDERED: ASPIRIN 325 MG TAB PO SCH (09:00)
[2017-02-01] MEDS ORDERED: LORazepam 2 MG/ML VIAL IV PUSH ONE (11:00)
[2017-02-01] MEDS ORDERED: QUEtiapine FUMARATE 300 MG TAB PO SCH (11:00)
[2017-02-01] MEDS ORDERED: REGADENOSON INJ 0.4 MG/5 ML SYR ONE (11:36)
--- NOTE | 2017-02-01 13:54 | RADRPT ---
EXAM DATE/TIME: 02/01/2017 10:17 [place] COMPARISON: No previous studies available for comparison. INDICATIONS : Mid chest pain for one day. Angina. DOSE: 25.7 mCi Tc99m Myoview at stress. 8.6 mCi Tc99m Myoview at rest. 0.4 mg Lexiscan STRESS SYMPTOMS: Nausea EJECTION FRACTION: 66% MEDICAL HISTORY : Hypertension. Asthma SURGICAL HISTORY : Thyroidectomy. Tubal ligation. Cardiac catherization ENCOUNTER: Initial ACUITY: 2 days PAIN SCALE: 2/10 LOCATION: Left chest discomfort TECHNIQUE: The patient underwent pharmacologic stress with infusion of prescribed dose. Continuous ECG tracing was monitored during stress. Gated SPECT imaging was performed after stress and conventional SPECT i maging was performed at rest. The examination was performed on a SPECT/CT scanner, both attenuation and non-corrected datasets were reviewed. FINDINGS: DISTRIBUTION: The maximum perfused segment at stress is in the inferior wall. PERFUSION STUDY: The pattern of perfusion at stress is within normal limits. GATED STUDY: There is intact wall motion and thickening without hypokinetic or dyskinetic segments. CONCLUSION: 1. Unremarkable myocardial perfusion scan. RISK CATEGORY: Low (<1% Annual Mortality Rate) Taiwo Reid MD on February 01, 2017 at 13:17 Board Certified Radiologist. This report was verified electronically.
--- NOTE | 2017-02-01 14:24 | HHI.DCPOC ---
Discharge Care Plan Diagnosis: (1) Atypical chest pain (2) Adverse reaction to methadone Goals to Promote Your Health * To prevent worsening of your condition and complications * To maintain your health at the optimal level Directions to Meet Your Goals Take your medications as prescribed Follow your dietary instruction Follow activity as directed Keep your appointments as scheduled Take your immunizations and boosters as scheduled If your symptoms worsen call your PCP, if no PCP go to Urgent Care Center or Emergency Room Smoking is Dangerous to Your Health. Avoid second hand smoke Call the 24-hour hour crisis hotline for domestic abuse at Dejah Parker Feb 01, 2017 14:24
--- NOTE | 2017-02-01 14:24 | HHI.DCPOC ---
Discharge Care Plan Diagnosis: (1) Atypical chest pain (2) Adverse reaction to methadone Goals to Promote Your Health * To prevent worsening of your condition and complications * To maintain your health at the optimal level Directions to Meet Your Goals Take your medications as prescribed Follow your dietary instruction Follow activity as directed Keep your appointments as scheduled Take your immunizations and boosters as scheduled If your symptoms worsen call your PCP, if no PCP go to Urgent Care Center or Emergency Room Smoking is Dangerous to Your Health. Avoid second hand smoke Call the 24-hour hour crisis hotline for domestic abuse at Dejah Parker Feb 01, 2017 14:24
--- NOTE | 2017-02-01 14:24 | HHI.DCPOC ---
Discharge Care Plan Diagnosis: (1) Atypical chest pain (2) Adverse reaction to methadone Goals to Promote Your Health * To prevent worsening of your condition and complications * To maintain your health at the optimal level Directions to Meet Your Goals Take your medications as prescribed Follow your dietary instruction Follow activity as directed Keep your appointments as scheduled Take your immunizations and boosters as scheduled If your symptoms worsen call your PCP, if no PCP go to Urgent Care Center or Emergency Room Smoking is Dangerous to Your Health. Avoid second hand smoke Call the 24-hour hour crisis hotline for domestic abuse at Dejah Parker Feb 01, 2017 14:24
[2017-02-01] MEDS ORDERED: oxyCODONE/ACETAMINOPHEN 5 MG/325 MG TAB PO ONE (14:45)
--- NOTE | 2017-02-01 15:34 | EKG ---
Date Performed: 02/01/2017 Time Performed: 03:58:54 PTAGE: 61 years EKG: Sinus rhythm WITH FIRST DEGREE AV BLOCK ABNORMAL ECG INTERPRETATION BASED ON A DEFAULT AGE OF 40 YEARS PREVIOUS TRACING : 02/01/2017 00.42 Since previous tracing, no significant change noted DOCTOR: Taiwo Sosa Interpretating Date/Time 02/01/2017 15:33:02
--- NOTE | 2017-02-01 15:35 | EKG ---
Date Performed: 02/01/2017 Time Performed: 00:42:12 PTAGE: 61 years EKG: Sinus rhythm WITH FIRST DEGREE AV BLOCK ABNORMAL ECG PREVIOUS TRACING : 01/10/2017 02.50 Since previous tracing, no significant change noted DOCTOR: Taiwo Sosa Interpretating Date/Time 02/01/2017 15:33:22
--- NOTE | 2017-02-01 15:36 | TR ---
Date Performed: 02/01/2017 Time Performed: 11:40:35 DOCTOR: Taiwo Sosa DRUG LIST: CLINICAL HISTORY: REASON FOR TEST: REASON FOR ENDING: OBSERVATION: CONCLUSION: Lexiscan stress test was performed under standard four minute protocol. Radionuclid e was injected one minute prior to ending the test. No electrocardiographic abormalities were present to suggest ischemia. Nuclear imaging and interpretation are pending. COMMENTS:
--- NOTE | 2017-02-01 15:36 | EKG ---
Date Performed: 02/01/2017 Time Performed: 06:15:59 PTAGE: 61 years EKG: Sinus rhythm WITH FIRST DEGREE AV BLOCK ABNORMAL ECG PREVIOUS TRACING : 02/01/2017 03.58 Since previous tracing, no significant change noted DOCTOR: Taiwo Sosa Interpretating Date/Time 02/01/2017 15:34:00
[2017-02-01] MEDS ORDERED: GABAPENTIN 300 MG CAP PO SCH (21:00)
[2017-02-02] MEDS ORDERED: LEVOTHYROXINE SODIUM 200 MCG TAB PO SCH (06:00)
== END 2017-02-01 17:06 | disposition home or self-care (01) ==
LOC: NEPE 23:22 → NEDA 02-01 02:18 → NEPFCDU 02-01 04:04
PROVIDERS: ADMIT Internal Medicine Interventional Cardiology; ATTEND Internal Medicine Interventional Cardiology
DX: R07.89 Other chest pain (principal); T40.3X5A Adverse effect of methadone, initial encounter; I10 Essential (primary) hypertension; I25.10 Atherosclerotic heart disease of native coronary artery without angina pectoris; I48.91 Unspecified atrial fibrillation; E78.5 Hyperlipidemia, unspecified; J44.9 Chronic obstructive pulmonary disease, unspecified; E03.9 Hypothyroidism, unspecified; F41.9 Anxiety disorder, unspecified; G89.4 Chronic pain syndrome; K21.9 Gastro-esophageal reflux disease without esophagitis; K59.09 Other constipation; Z79.82 Long term (current) use of aspirin; Z85.850 Personal history of malignant neoplasm of thyroid
CPT/HCPCS: 71010; 73502; 78452; 80053; 81001; 82550; 82552; 83690; 83735; 83880; 84484; 85025; 85610; 85730; 93005; 93017; 96374; 96375; 99285; A9502; G0378; J1885; J2060; J2405; J2785

== ENCOUNTER 2017-03-02 18:46 | Inpatient (IN) | payer MEDICARE, MEDICAID ==
[~2017-03-02] VITALS: Ht 170.2 cm; Wt 82.0 kg
[~2017-03-02 18:46] MED LIST changes: +METH10TA PO; +TRAZ100T10 PO; -TRAZ100T6 PO; +ZOFR4TAB PO
[2017-03-02 18:56] VITALS: BP 187/106; PULSE 84; RESP 21; TEMP 99.1; O2SAT 98
[2017-03-02 19:01] VITALS: BP 187/106; PULSE 86; RESP 21; TEMP 99.1; O2SAT 98
[2017-03-02] MEDS ORDERED: ONDANSETRON HCL 4 MG/2 ML VIAL IV ONE (19:15)
[2017-03-02] MEDS ORDERED: SODIUM CHLOR 0.9% 1000 ML INJ 1,000 ML IV ONE (19:15)
--- NOTE | 2017-03-02 19:21 | PD ---
HPI Chief Complaint: Chest Pain Time Seen by Provider: 19:14 Travel History International Travel<30 days: No Contact w/Intl Traveler<30days: No Traveled to known affect area: No History of Present Illness HPI The patient is a 62 year old female who presents to the [facility] emergency department with a history of reportedly not feeling well for the last week. The patient reports that she's had a dry cough, congestion, clear rhinorrhea, vomiting, loose stools. She reports that she seen her primary care physician on 2 occasions regarding this over the last week, however the medicine that was provided was not helping. Recall the name of the medication that she was provided. She reports that she has not been taking her other chronic medications for the last 2 days that she has not felt well. She reports that she's had a subjective fever at home. She reports that she's had chills. She reports that today she's had nausea and vomiting 8. She denies having any blood in her emesis. She reports that she's had loose stools 3 today. She denies having any blood in her stool. She denies being on any known antibiotics recently. She reports having chest pressure associated with these symptoms. She reports having midepigastric abdominal pain. She reports that over the last 3 days she's had urinary frequency without dysuria or urinary urgency. She denies having any history of diabetes.On review of systems otherwise, the patient denies having any neck pain, shortness of breath , or neurologic symptoms. [facility] Past Medical History Narrative Medical The patient's past medical history is significant for a psychiatric disorder, history of chronic pain with an implanted pain pump and chronic opiate use and to the care of pain management, history of hypertension, irregular heartbeat, history of thyroid cancer, COPD Hx Anticoagulant Therapy: Yes Arthritis: Yes Asthma: No Atrial Fibrillation: Yes Autoimmune Disease: No Blood Disorders: No Anxiety: Yes Depression: Yes Heart Rhythm Problems: Yes Cancer: Yes (thyroid cancer) Cardiac Catheterization: Yes (20 % CLOGGED ) Cardiovascular Problems: Yes High Cholesterol: Yes Chemotherapy: No Chest Pain: Yes Congestive Heart Failure: No COPD: Yes Cerebrovascular Accident: No Coronary Artery Disease: Yes Diabetes: No Diminished Hearing: No Endocrine: Yes Gastrointestinal Disorders: Yes GERD: Yes Glaucoma: No Genitourinary: Yes Headaches: No Hepatitis: No Hiatal Hernia: No Hypertension: Yes Immune Disorder: No Implanted Vascular Access Dvce: Yes (MORPHINE PUMP) Kidney Stones: No Medical other: Yes (GERD, HX ULCERS ; ARTHRITIS) Musculoskeletal: Yes Neurologic: Yes (reports seizures) Psychiatric: No Reproductive: No Respiratory: Yes Migraines: Yes Myocardial Infarction: No Radiation Therapy: No Renal Failure: No Seizures: No Sickle Cell Disease: No Sleep Apnea: No Thyroid Disease: Yes (thyroidectomy, from thyroid cancer) Ulcer: Yes PNEUMOCCOCAL Vaccine (Year): 2 Menopausal: Yes Tubal Ligation: Yes Past Surgical History Narrative Surgical The patient's past surgical history is significant for an implantable pain pump placement, history of thyroidectomy, hysterectomy, tonsillectomy Abdominal Surgery: Yes (STOMACH SURGERY FOR ACID REFLUX) AICD: No Appendectomy: No Arteriovenous Shunt: No Body Medical Devices: morphine pain pump implanted in lower back Cardiac Surgery: No Cholecystectomy: Yes Coronary Artery Bypass Graft: No Ear Surgery: No Endocrine Surgery: Yes (THYROIDECTOMY RELATED TO CANCER) Eye Surgery: No Genitourinary Surgery: No Gynecologic Surgery: Yes (TUBAL LIG.) Hysterectomy: Yes Insulin Pump: No Joint Replacement: No Neurologic Surgery: No Oral Surgery: Yes Pacemaker: No Thoracic Surgery: Yes Tonsillectomy: Yes Other Surgery: Yes (THYROIDECTOMY) Social History Alcohol Use: No Tobacco Use: No Substance Use: No Allergies-Medications (Allergen,Severity, Reaction): Coded Allergies: codeine (Unverified Allergy, Severe, NAUSEA, 03/02/17) cyclobenzaprine (Unverified Allergy, Severe, 03/02/17) paroxetine (Unverified Allergy, Severe, 03/02/17) sulfamethoxazole (Unverified Allergy, Severe, 03/02/17) trimethoprim (Unverified Allergy, Severe, 03/02/17) Reported Meds & Prescriptions Reported Meds & Active Scripts Active Oxycodone-Acetaminophen 10-325 mg Tab 1 Tab PO Q4H PRN 5 Days Catapres (Clonidine) 0.1 Mg Tab 0.1 Mg PO TID MDD 0.9 quantity 30 Days Gabapentin 300 Mg Cap 600 Mg PO BID Reported Methadone (Methadone HCl) 10 Mg Tab 10 Mg PO TID Zofran (Ondansetron HCl) 4 Mg Tab 4 Mg PO Q12HR PRN Cetirizine-Pseudoephedrine 12 HR 5-120 Mg Tab 1 Tab PO HS Trazodone (Trazodone HCl) 100 Mg Tablet 200 Mg PO HS Aspir-81 (Aspirin) 81 Mg Tabdr 1 Tab PO HS Ibuprofen 600 Mg Tab 600 Mg PO Q8HR PRN Levothyroxine (Levothyroxine Sodium) 200 Mcg Tab 200 Mcg PO DAILY Seroquel (Quetiapine Fumarate) 300 Mg Tab 300 Mg PO DAILY Review of Systems General / Constitutional: Positive: Fever Eyes: No: Visual changes HENT: Positive: Rhinorrhea, Congestion, No: Headaches Cardiovascular: Positive: Chest Pain or Discomfort, No: Dyspnea on exertion Respiratory: Positive: Cough, No: Shortness of Breath Gastrointestinal: Positive: Nausea, Vomiting, Diarrhea, Abdominal Pain, Changes in Bowel Habits, Indigestion, Loss of Appetite, No: Hematemesis, Hematochezia Genitourinary: Positive: Frequency, No: Urgency, Dysuria Musculoskeletal: No: Pain Skin: No Rash Neurologic: No: Weakness, Focal Abnormalities, Change in Mentation, Slurred Speech, Sensory Disturbance Psychiatric: No: Depression Endocrine: No: Polydipsia Hematologic/Lymphatic: No: Easy Bruising Physical Exam Narrative General: The patient is a well-developed well-nourished female in no acute distress. Head and Neck exam: Head is normocephalic atraumatic. Eyes: EOMI, pupils are equal round and reactive to light. Nose: Midline septum with pink mucous membranes Mouth: Dentition unremarkable. Moist mucus membranes. Posterior oropharynx is not erythematous. No tonsillar hypertrophy. Uvula midline. Airway patent. Neck: No palpable lymphadenopathy. No nuchal rigidity. No thyromegaly. Cardiovascular: Regular rate and rhythm without murmurs, gallops, or rubs. Lungs: Clear to auscultation bilaterally. No wheezes, rhonchi, or rales. Abdomen: Soft, with tenderness on palpation of the midepigastric area, no other tenderness on palpation of the other quadrants of the abdomen. Negative Allen' s sign. No tenderness on palpation of McBurney's point. No guarding, rebound, or rigidity. Normal bowel sounds are audible. Extremities: No clubbing, cyanosis, or edema. 2+ pulses in all 4 extremities. Back: No costovertebral angle tenderness to palpation. Neurologic Exam: Grossly nonfocal. Skin Exam: No rash noted. Intact skin that is warm and dry. Data Data Last Documented VS Vital Signs Date Time Temp Pulse Resp B/P (MAP) Pulse Ox O2 Delivery O2 Flow Rate FiO2 03/02/17 19:01 99.1 86 21 187/106 (133) 98 Room Air Orders Orders Electrocardiogram (03/02/17 19:14) Complete Blood Count With Diff (03/02/17 19:14) Comprehensive Metabolic Panel (03/02/17 19:14) Creatine Kinase (Cpk) (03/02/17 19:14) Ckmb (Isoenzyme) Profile (03/02/17 19:14) Troponin I (03/02/17 19:14) B-Type Natriuretic Peptide (03/02/17 19:14) Prothrombin Time / Inr (Pt) (03/02/17 19:14) Act Partial Throm Time (Ptt) (03/02/17 19:14) Lipase (03/02/17 19:14) Urinalysis - C+S If Indicated (03/02/17 19:14) Cath For Specimen (03/02/17 19:14) Magnesium (Mg) (03/02/17 19:14) Chest, Single Ap (03/02/17 19:14) Iv Access Insert/Monitor (03/02/17 19:14) Ecg Monitoring (03/02/17 19:14) Oximetry (03/02/17 19:14) Sodium Chlor 0.9% 1000 Ml Inj (Ns 1000 M (03/02/17 19:15) Ondansetron Inj (Zofran Inj) (03/02/17 19:15) Metoclopramide Inj (Reglan Inj) (03/02/17 21:00) Oral Rehydration (03/02/17 20:59) Admit Order (Ed Use Only) (03/02/17 21:42) Labs Laboratory Tests Test 03/02/17 19:30 03/02/17 19:40 White Blood Count 6.9 TH/MM3 Red Blood Count 4.07 MIL/MM3 Hemoglobin 11.6 GM/DL Hematocrit 34.8 % Mean Corpuscular Volume 85.4 FL Mean Corpuscular Hemoglobin 28.4 PG Mean Corpuscular Hemoglobin Concent 33.3 % Red Cell Distribution Width 15.7 % Platelet Count 189 TH/MM3 Mean Platelet Volume 8.0 FL Neutrophils (%) (Auto) 73.9 % Lymphocytes (%) (Auto) 14.4 % Monocytes (%) (Auto) 10.5 % Eosinophils (%) (Auto) 0.5 % Basophils (%) (Auto) 0.7 % Neutrophils # (Auto) 5.1 TH/MM3 Lymphocytes # (Auto) 1.0 TH/MM3 Monocytes # (Auto) 0.7 TH/MM3 Eosinophils # (Auto) 0.0 TH/MM3 Basophils # (Auto) 0.0 TH/MM3 CBC Comment DIFF FINAL Differential Comment Prothrombin Time 10.6 SEC Prothromb Time International Ratio 1.0 RATIO Activated Partial Thromboplast Time 24.7 SEC Blood Urea Nitrogen 13 MG/DL Creatinine 1.06 MG/DL Random Glucose 119 MG/DL Total Protein 7.6 GM/DL Albumin 3.0 GM/DL Calcium Level 8.3 MG/DL Magnesium Level 1.8 MG/DL Alkaline Phosphatase 98 U/L Aspartate Amino Transf (AST/SGOT) 20 U/L Alanine Aminotransferase (ALT/SGPT) 35 U/L Total Bilirubin 0.3 MG/DL Sodium Level 139 MEQ/L Potassium Level 3.6 MEQ/L Chloride Level 105 MEQ/L Carbon Dioxide Level 25.2 MEQ/L Anion Gap 9 MEQ/L Estimat Glomerular Filtration Rate 53 ML/MIN Total Creatine Kinase 50 U/L Troponin I LESS THAN 0.02 NG/ML B-Type Natriuretic Peptide 97 PG/ML Lipase 63 U/L Urine Color LIGHT-YELLOW Urine Turbidity CLEAR Urine pH 8.0 Urine Specific [place] 1.008 Urine Protein NEG mg/dL Urine Glucose (UA) NEG mg/dL Urine Ketones NEG mg/dL Urine Occult Blood NEG Urine Nitrite NEG Urine Bilirubin NEG Urine Urobilinogen LESS THAN 2.0 MG/DL Urine Leukocyte Esterase NEG Urine WBC LESS THAN 1 /hpf Microscopic Urinalysis Comment CULT NOT INDICATED MDM Medical Decision Making Medical Screen Exam Complete: Yes Emergency Medical Condition: Yes Medical Record Reviewed: Yes Interpretation(s) Last Impressions Chest X-Ray 03/02/171913 Signed Impressions: Service Date/Time: Thursday, March 02, 2017 19:30 - CONCLUSION: No acute disease. Anthony Muñiz MD Differential Diagnosis Pneumonia, versus acute coronary syndrome, versus acid reflux, versus pancreatitis, versus biliary colic, versus acute cholecystitis, versus gastroenteritis, versus dehydration, versus electrolyte arrangements, versus pyelonephritis Narrative Course During the course of the patients emergency department visit, the patients history, examination, and differential diagnosis were reviewed with the patient. The patient was placed on a cardiac sonographer with oximetry and frequent blood pressure monitoring. The patient had IV access obtained and blood work sent for analysis. The patient had an ECG done on arrival that shows a sinus rhythm heart rate of 85, no acute ST segment elevation, T waves are inverted in lead 3, V1. QRS duration is 82 ms, QTC 420 ms. from reviewing the patient's electronic medical record, the patient does have a history of being admitted to the chest pain center recently with a rule out serial cardiac enzyme protocol followed by chemical stress test on February 01 that was low probability for ACS. The patient was initially provided normal saline IV fluids. The patient was given Zofran 4 mg IV for nausea. The patients laboratory studies were reviewed and remarkable for a white count of 6.9, hemoglobin 11.6, platelets 189 with 73.9 neutrophils, 10.5 monocytes, CMP is remarkable for creatinine 1.06, glucose 119, calcium 8.3, CPK 50, troponin I less than 0.02, BNP 97, lipase 63. PT 10.6, PTT 24.7. Urinalysis is within normal limits. Radiology studies were reviewed and remarkable for a chest x-ray shows no acute cardiopulmonary disease. On reexamination the patient reports that she continues to feel nauseated and has vomited again in the emergency department. The patient was given Reglan 5 mg IV. I reviewed the electronic medical record shows that the patient has not seen a GI doctor recently. She denies ever having gastric emptying studies done and reports that she has had recurrent problems with nausea and vomiting. I did discuss this with the admitting team. The patients results were discussed with the patient, including the plan of care. I explained that further testing and/ or monitoring is indicated based on the patients history, examination, and/ or laboratory findings. Therefore, I recommended admission for additional evaluation. The patient expressed understanding and was agreeable with this plan. The patient was admitted to the hospital in stable condition and sent to a bed under the care of Dr. Griffin. Physician Communication Physician Communication The patient's case including history, pertinent physical examination findings, and laboratory studies were discussed with Dejah, the nurse practitioner. It was agreed that the patient would be admitted to Dr. Griffin's service. Admitting Information Admitting Physician Requests: Naomi Zimmerman MD Mar 02, 2017 19:21
[2017-03-02 19:49] LABS: AUTOMATED NEUTROPHIL # 5.1 TH/MM3 (1.8-7.7); BASOPHIL % 0.7 % (0.0-2.0); EOSINOPHIL % 0.5 % (0.0-4.0); HEMATOCRIT 34.8 % (35.0-46.0); HEMO FLAGS DIFF FINAL; LYMPH % 14.4 % (9.0-44.0); MEAN CELL VOLUME 85.4 FL (80.0-100.0); MEAN CORPUSCULAR HEMOGLOBIN 28.4 PG (27.0-34.0); MEAN CORPUSCULAR HGB CONC 33.3 % (32.0-36.0); MONO % 10.5 % (0.0-8.0); NEUT % 73.9 % (16.0-70.0); PLATELET COUNT 189 TH/MM3 (150-450); RED BLOOD COUNT 4.07 MIL/MM3 (4.00-5.30); RED CELL DISTRIBUTION WIDTH 15.7 % (11.6-17.2); WHITE BLOOD COUNT 6.9 TH/MM3 (4.0-11.0)
--- NOTE | 2017-03-02 19:49 | RADRPT ---
EXAM DATE/TIME: 03/02/2017 19:30 [facility] COMPARISON: CHEST SINGLE AP, January 31, 2017, 23:28. INDICATIONS : Nausea, vomiting. MEDICAL HISTORY : None. SURGICAL HISTORY : None. ENCOUNTER: Initial ACUITY: 3 days PAIN SCORE: 0/10 LOCATION: Bilateral chest FINDINGS: A single view of the chest demonstrates the lungs to be symmetrically aerated without evidence of mas s, infiltrate or effusion. The cardiomediastinal contours are unremarkable. Osseous structures are intact. CONCLUSION: No acute disease. Anthony Muñiz MD on March 02, 2017 at 19:47 Board Certified Radiologist. This report was verified electronically.
[2017-03-02 19:58] LABS: BLOOD, URINE NEG (NEG); GLUCOSE,URINE NEG (NEG); KETONE, URINE NEG (NEG); NITRITE,URINE NEG (NEG); URINE COLOR LIGHT-YELLOW (YELLW/STRAW)
[2017-03-02 20:03] LABS: COMMENT (UR) CULT NOT INDICATED; CULTURE IF INDICATED CULT NOT INDICATED
[2017-03-02 20:04] LABS: APTT (PATIENT) 24.7 SEC (24.3-30.1); PROTHROMBIN TIME - PATIENT 10.6 SEC (9.8-11.6)
[2017-03-02 20:15] LABS: ANION GAP 9 MEQ/L (5-15); AST (GOT) 20 U/L (15-37); BICARBONATE 25.2 MEQ/L (21.0-32.0); BLOOD UREA NITROGEN 13 MG/DL (7-18); CHLORIDE 105 MEQ/L (98-107); GLOMERULAR FILTRATION RATE 53 ML/MIN (>89); MAGNESIUM 1.8 MG/DL (1.5-2.5); POTASSIUM 3.6 MEQ/L (3.5-5.1); SODIUM (NA) 139 MEQ/L (136-145)
[2017-03-02 20:16] LABS: ALT (GPT) 35 U/L (10-53)
[2017-03-02 20:20] LABS: ALKALINE PHOSPHATASE 98 U/L (45-117); TOTAL BILIRUBIN ADULT 0.3 MG/DL (0.2-1.0)
[2017-03-02 20:21] LABS: CREATINE KINASE 50 U/L (26-192)
[2017-03-02] MEDS ORDERED: METOCLOPRAMIDE HCL 10 MG/2 ML VIAL IV PUSH ONE (21:00)
[2017-03-02] MEDS ORDERED: SENNOSIDES 8.6 MG TAB PO PRN (22:00)
[2017-03-02] MEDS ORDERED: MAGNESIUM HYDROXIDE SUSP 30 ML CUP PO PRN (22:00)
[2017-03-02] MEDS ORDERED: BISACODYL 10 MG SUPP RECTAL PRN (22:00)
[2017-03-02] MEDS ORDERED: SODIUM CHLORIDE 0.9% FLUSH 10 ML FLUSH IV FLUSH PRN (22:00)
[2017-03-02 22:37] VITALS: BP 135/86; PULSE 89; RESP 18; O2SAT 95
[2017-03-03] VITALS (10 sets, daily range): BP systolic 111–168; BP diastolic 60–94; PULSE 75–110; RESP 17–20; TEMP 98.4–100.1; O2SAT 94–96
[2017-03-03] MEDS: IBUPROFEN 600 MG TAB PO PRN ×2 (01:26→09:06)
[2017-03-03] MEDS: ONDANSETRON HCL 4 MG/2 ML VIAL IVP PRN ×2 (01:26→12:35)
[2017-03-03] MEDS: traZODone HCL 100 MG TAB PO SCH ×2 (01:26→21:00)
--- NOTE | 2017-03-03 05:06 | EKG ---
Date Performed: 03/02/2017 Time Performed: 19:49:38 PTAGE: 62 years EKG: Sinus rhythm MODERATE VOLTAGE CRITERIA FOR LVH, CONSIDER NORMAL VARIANT BORDERLINE ECG Compared to prior electroc ardiogram, first degree A-V block no longer present. PREVIOUS TRACING : 02/01/2017 06.15 DOCTOR: Rico Landa Interpretating Date/Time 03/03/2017 05:05:43
[2017-03-03 05:52] LABS: AUTOMATED NEUTROPHIL # 4.7 TH/MM3 (1.8-7.7); BASOPHIL # 0.1 TH/MM3 (0-0.2); BASOPHIL % 0.8 % (0.0-2.0); EOSINOPHIL % 0.3 % (0.0-4.0); HEMATOCRIT 33.2 % (35.0-46.0); HEMO FLAGS DIFF FINAL; MEAN CORPUSCULAR HEMOGLOBIN 28.2 PG (27.0-34.0); MEAN CORPUSCULAR HGB CONC 32.8 % (32.0-36.0); NEUT % 72.9 % (16.0-70.0); PLATELET COUNT 191 TH/MM3 (150-450); RED BLOOD COUNT 3.86 MIL/MM3 (4.00-5.30); RED CELL DISTRIBUTION WIDTH 16.2 % (11.6-17.2); WHITE BLOOD COUNT 6.5 TH/MM3 (4.0-11.0)
[2017-03-03 06:14] LABS: POTASSIUM 3.8 MEQ/L (3.5-5.1)
--- NOTE | 2017-03-03 08:11 | PD.CONS ---
HPI History of Present Illness This is a 62 year old female who presented to the emergency room for generalized malaise with abdominal pain, nausea, vomiting, and loose stools. She reports that her symptoms have been going on for the past week and just seems to be getting worse during that time. She was seen by her primary care physician a few times, but states he could not get to the bottom of her symptoms and therefore referred her to the emergency room for further evaluation. She reports that she has been having nausea and vomiting intermittently, consisting of bilious material but no hematemesis. She has occasional heartburn, but not on a regular basis. She states she also has associated mid epigastric pain that radiates to her left and right upper quadrants. This is not related to food and seems to be "sore" from persistent nausea and vomiting. She denies any diarrhea, but states she has been having loose stools. Normally, she moves her bowels twice a day, but over the past few weeks, it has been more once a day to every 2-3 days. She has not seen any black tarry stool. She does have occasional bright red blood per rectum when she wipes, but none within the stool. EGD/Colonoscopy (06/12/15)---> white exudates consistent with candidiasis in the distal esophagus. There was a short stricture at the gastroesophageal junction; the stricture was dilated using a 17 mm savory dilator over guidewire, there was mild antral gastropathy noted, retroflex views revealed no abnormalities. 3 small sessile polyps were found in the sigmoid colon semi-colon polypectomy was performed with the cold snare, small colitis was found in the rectum and sigmoid colon; the mucosa was edematous, erythematous and had petechiae; multiple biopsies were performed using cold forceps, mild diverticulosis was noted in the sigmoid colon, retroflex views revealed no abnormalities, revealed no abnormalities of the rectum. Pathology revealed antral mucosa with no significant histopathologic abnormalities, sigmoid polyp fragments of acutely and chronically inflamed granulation tissue. No colonic epithelium identified. Rectal biopsy colonic mucosa with very mild acute inflammation of crypt epithelium-nonspecific and may be seen with inflammatory bowel disease, ischemia, and infectious conditions , and an acute self-limited colitis. It was recommended that she have a repeat colonoscopy in one year. Of note, her father is from colon cancer. She has a Morphine pain pump for chronic back pain. She has a history of PUD and had a partial gastrectomy about 7 years ago. (Olive Avery BRETT) PFSH Past Medical History Adjustment disorder Lower GI bleeding Colitis Colon polyps Constipation COPD Dysphagia Esophageal stricture GERD Hypertension Hypothyroidism Migraines Gastropathy Diverticulosis Malignant neoplasm of thyroid Past Surgical History Back surgery Cholecystectomy Colonoscopy EGD with dilatation Implantable pain pump Partial gastrectomy Thyroid surgery Tubal ligation (Olive Averyrell WEST) Coded Allergies: codeine (Unverified Allergy, Severe, NAUSEA, 03/02/17) cyclobenzaprine (Unverified Allergy, Severe, 03/02/17) paroxetine (Unverified Allergy, Severe, 03/02/17) sulfamethoxazole (Unverified Allergy, Severe, 03/02/17) trimethoprim (Unverified Allergy, Severe, 03/02/17) Medications Allergies Coded Allergies Type Severity Reaction Last Updated Verified codeine Allergy Severe NAUSEA 03/02/17 No cyclobenzaprine Allergy Severe 03/02/17 No paroxetine Allergy Severe 03/02/17 No sulfamethoxazole Allergy Severe 03/02/17 No trimethoprim Allergy Severe 03/02/17 No Active Scripts Medications Dose Route/Sig Max Daily Dose Days Date Category Methadone (Methadone HCl) 10 Mg Tab 10 Mg PO TID 01/31/17 Reported Zofran (Ondansetron HCl) 4 Mg Tab 4 Mg PO Q12HR PRN 01/31/17 Reported Oxycodone-Acetaminophen 10-325 mg Tab 1 Tab PO Q4H PRN 5 01/14/17 Rx Catapres (Clonidine) 0.1 Mg Tab 0.1 Mg PO TID MDD 0.9 quantity 30 01/14/17 Rx Gabapentin 300 Mg Cap 600 Mg PO BID 01/14/17 Rx Cetirizine-Pseudoephedrine 12 HR 5-120 Mg Tab 1 Tab PO HS 09/28/16 Reported Trazodone (Trazodone HCl) 100 Mg Tablet 200 Mg PO HS 09/28/16 Reported Aspir-81 (Aspirin) 81 Mg Tabdr 1 Tab PO HS 04/13/16 Reported Ibuprofen 600 Mg Tab 600 Mg PO Q8HR PRN 04/13/16 Reported Levothyroxine (Levothyroxine Sodium) 200 Mcg Tab 200 Mcg PO DAILY 04/13/16 Reported Seroquel (Quetiapine Fumarate) 300 Mg Tab 300 Mg PO DAILY 04/13/16 Reported Family History Father from colon cancer age 74-76. Social History Denies the use of tobacco, etoh, illicit drug use. (Olive Avery) Review of Systems Constitutional: COMPLAINS OF: Fatigue, Change in appetite, DENIES: Fever, Weight loss, Chills Respiratory: COMPLAINS OF: Cough Cardiovascular: DENIES: Chest pain Gastrointestinal: COMPLAINS OF: Abdominal pain, Diarrhea (loose), Nausea, Vomiting, DENIES: Black stools, Bloody stools, Constipation, Heartburn, Hematemesis Musculoskeletal: COMPLAINS OF: Joint pain, Back pain Integumentary: COMPLAINS OF: Rash Neurologic: DENIES: Headache Psychiatric: DENIES: Confusion (Olive Avery) GI Exam Vitals I&O Vital Signs Date Time Temp Pulse Resp B/P (MAP) Pulse Ox O2 Delivery O2 Flow Rate FiO2 03/03/17 04:00 98.8 87 20 157/82 (107) 95 03/03/17 00:00 100.1 110 20 111/67 (82) 95 03/02/17 22:37 03/02/17 22:37 89 18 135/86 (102) 95 Room Air 03/02/17 19:01 99.1 86 21 187/106 (133) 98 Room Air 03/02/17 19:00 86 21 98 Room Air 03/02/17 18:56 99.1 84 21 187/106 (133) 98 I/O 03/02/17 03/02/17 03/02/17 03/03/17 03/03/17 03/03/17 07:00 15:00 23:00 07:00 15:00 23:00 Intake Total 1200 ml Balance 1200 ml Intake Oral 200 ml IV Total 1000 ml # Voids 2 Imaging Last Impressions Chest X-Ray 03/02/171913 Signed Impressions: Service Date/Time: Thursday, March 02, 2017 19:30 - CONCLUSION: No acute disease. Anthony Muñiz MD Laboratory Test 03/02/17 19:30 03/02/17 19:40 03/03/17 04:40 White Blood Count 6.9 TH/MM3 6.5 TH/MM3 Red Blood Count 4.07 MIL/MM3 3.86 MIL/MM3 Hemoglobin 11.6 GM/DL 10.9 GM/DL Hematocrit 34.8 % 33.2 % Mean Corpuscular Volume 85.4 FL 86.0 FL Mean Corpuscular Hemoglobin 28.4 PG 28.2 PG Mean Corpuscular Hemoglobin Concent 33.3 % 32.8 % Red Cell Distribution Width 15.7 % 16.2 % Platelet Count 189 TH/MM3 191 TH/MM3 Mean Platelet Volume 8.0 FL 8.4 FL Neutrophils (%) (Auto) 73.9 % 72.9 % Lymphocytes (%) (Auto) 14.4 % 16.0 % Monocytes (%) (Auto) 10.5 % 10.0 % Eosinophils (%) (Auto) 0.5 % 0.3 % Basophils (%) (Auto) 0.7 % 0.8 % Neutrophils # (Auto) 5.1 TH/MM3 4.7 TH/MM3 Lymphocytes # (Auto) 1.0 TH/MM3 1.0 TH/MM3 Monocytes # (Auto) 0.7 TH/MM3 0.6 TH/MM3 Eosinophils # (Auto) 0.0 TH/MM3 0.0 TH/MM3 Basophils # (Auto) 0.0 TH/MM3 0.1 TH/MM3 CBC Comment DIFF FINAL DIFF FINAL Differential Comment Prothrombin Time 10.6 SEC Prothromb Time International Ratio 1.0 RATIO Activated Partial Thromboplast Time 24.7 SEC Blood Urea Nitrogen 13 MG/DL 13 MG/DL Creatinine 1.06 MG/DL 0.99 MG/DL Random Glucose 119 MG/DL 119 MG/DL Total Protein 7.6 GM/DL Albumin 3.0 GM/DL Calcium Level 8.3 MG/DL 8.1 MG/DL Magnesium Level 1.8 MG/DL Alkaline Phosphatase 98 U/L Aspartate Amino Transf (AST/SGOT) 20 U/L Alanine Aminotransferase (ALT/SGPT) 35 U/L Total Bilirubin 0.3 MG/DL Sodium Level 139 MEQ/L 137 MEQ/L Potassium Level 3.6 MEQ/L 3.8 MEQ/L Chloride Level 105 MEQ/L 104 MEQ/L Carbon Dioxide Level 25.2 MEQ/L 27.0 MEQ/L Anion Gap 9 MEQ/L 6 MEQ/L Estimat Glomerular Filtration Rate 53 ML/MIN 57 ML/MIN Total Creatine Kinase 50 U/L Troponin I LESS THAN 0.02 NG/ML B-Type Natriuretic Peptide 97 PG/ML Lipase 63 U/L Urine Color LIGHT-YELLOW Urine Turbidity CLEAR Urine pH 8.0 Urine Specific [place] 1.008 Urine Protein NEG mg/dL Urine Glucose (UA) NEG mg/dL Urine Ketones NEG mg/dL Urine Occult Blood NEG Urine Nitrite NEG Urine Bilirubin NEG Urine Urobilinogen LESS THAN 2.0 MG/DL Urine Leukocyte Esterase NEG Urine WBC LESS THAN 1 /hpf Microscopic Urinalysis Comment CULT NOT INDICATED Physical Examination HEENT: Normocephalic; atraumatic; no jaundice CHEST: CTA CARDIAC: RRR ABDOMEN: Soft, nondistended, mild epigastric pain; no hepatosplenomegaly; bowel sounds are present in all four quadrants. EXTREMITIES: No clubbing, cyanosis, or edema. SKIN: spotted rash/scabs to extremities- pt states flea bites. DIRECT MARKETING COORDINATOR: No focal deficits; alert and oriented times three. (Olive Avery) Assessment and Plan Plan ASSESSMENT: - Abdominal pain, n/v. 1 week hx of epigastric pain radiating to LUQ/RUQ ( describes as sore from vomiting) and n/v consisting of bilious material, loose stools. 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 FHx colon cancer in father. EGD/Colonoscopy (06/12/15)---> white exudates consistent with candidiasis in the distal esophagus. There was a short stricture at the gastroesophageal junction; the stricture was dilated using a 17 mm savory dilator over guidewire, there was mild antral gastropathy noted, retroflex views revealed no abnormalities. 3 small sessile polyps were found in the sigmoid colon semi-colon polypectomy was performed with the cold snare, small colitis was found in the rectum and sigmoid colon ; the mucosa was edematous, erythematous and had petechiae; multiple biopsies were performed using cold forceps, mild diverticulosis was noted in the sigmoid colon, retroflex views revealed no abnormalities, revealed no abnormalities of the rectum. Pathology revealed antral mucosa with no significant histopathologic abnormalities, sigmoid polyp fragments of acutely and chronically inflamed granulation tissue. No colonic epithelium identified. Rectal biopsy colonic mucosa with very mild acute inflammation of crypt epithelium-nonspecific and may be seen with inflammatory bowel disease, ischemia, and infectious conditions, and an acute self-limited colitis. It was recommended that she have a repeat colonoscopy in one year. Of note, her father is from colon cancer. She has a Morphine pain pump for chronic back pain. Will get CT scan abdomen and pelvis, stool studies. Plan for egd/colonoscopy in am. - Change in bowels, loose stools. Will check stool studies. CT to evaluate for colitis. EGD/Colonoscopy in am. - BRBPR, occasional. Scant amount BRBPR when she wipes herself. - Anemia. 10.9/33.2 - GLORIA, Improved. Creat 0.99. - HTN, Hypothyroidism, Chronic back pain. per attending. - FHx colorectal cancer in father. PLAN: - Plan for egd/colonoscopy in am - Obtain consents - Clear liquids - NPO after MN - Golytley prep - Add Protonix 40mg po BID - D/C Ibuprofen - Stool studies- C/S, CDiff, O&P, Giardia - CT scan abdomen and pelvis with IV/PO contrast - CBC, BMP in am - Supportive care - Further recommendations to follow based on results of above - Pt seen and examined by Dr. Beaulieu and myself and this note is written on her behalf (Olive Avery) Physician Comments seen, examined agree with above CT abdomen/pelvis pending she describes more a Nilay fundoplication not a partial gastrectomy surgery (Rajni Beaulieu MD) Olive Avery Mar 03, 2017 08:11 Rajni Beaulieu MD Mar 03, 2017 19:29
[2017-03-03] MEDS ORDERED: DOCUSATE SODIUM 50 MG/SENNA 8.6 MG TAB PO SCH (09:00)
[2017-03-03] MEDS: SODIUM CHLORIDE 0.9% FLUSH 10 ML FLUSH IV FLUSH SCH ×2 (09:06→21:15)
[2017-03-03] MEDS ORDERED: NON-FORMULARY DRUG (Ondansetron (Zofran) 4 MG) PO PRN (10:30)
--- NOTE | 2017-03-03 10:30 | HHI.HP ---
History of Present Illness Service Family medicine Primary Care Physician Adrien Griffin, DO Admission Diagnosis Intractable vomiting, dehydration Diagnoses: History of Present Illness This is a 62 year old female who presented to the emergency room for nausea, vomiting, and loose stools. She reports that her symptoms have been going on for the past week and just seems to be getting worse during that time. She was seen by her primary care physician twice and the last week with no relief in symptoms. She has a past medical history of HTN, back pain with implanted pain pump and chronic opiate use, Thyroid cancer, depression, anxiety, and COPD. Review of Systems Constitutional: COMPLAINS OF: Fever, Chills Respiratory: DENIES: Hemoptysis, Sputum production, Shortness of breath Gastrointestinal: COMPLAINS OF: Abdominal pain, Nausea, Vomiting Genitourinary: COMPLAINS OF: Urinary frequency Musculoskeletal: COMPLAINS OF: Joint pain Integumentary: DENIES: Pruritus, Rash Neurologic: DENIES: Abnormal gait, Headache, Paresthesias Psychiatric: COMPLAINS OF: Depression Past Family Social History Allergies: Coded Allergies: codeine (Unverified Allergy, Severe, NAUSEA, 03/02/17) cyclobenzaprine (Unverified Allergy, Severe, 03/02/17) paroxetine (Unverified Allergy, Severe, 03/02/17) sulfamethoxazole (Unverified Allergy, Severe, 03/02/17) trimethoprim (Unverified Allergy, Severe, 03/02/17) Past Medical History HTN Arthritis Depression Anxiety Thyroid cancer GERD Back pain with implanted morphine pump Ulcers Migranes Past Surgical History Gastric resection thyroidectomy Active Ordered Medications Current Medications Medications (Trade) Dose Ordered Sig/Obdulia Route Start Time Stop Time Status Last Admin (NS Flush) 2 ml UNSCH PRN IV FLUSH 03/02/17 22:00 (NS Flush) 2 ml BID IV FLUSH 03/03/17 09:00 03/03/17 09:06 (Zofran Inj) 4 mg Q6H PRN IVP 03/02/17 22:00 03/03/17 01:26 (Reglan Inj) 5 mg Q6H PRN IV PUSH 03/02/17 22:00 (Anahi-Colace) 1 tab BID PO 03/03/17 09:00 03/03/17 09:05 (Milk Of Magnesia Liq) 30 ml Q12H PRN PO 03/02/17 22:00 (Senokot) 17.2 mg Q12H PRN PO 03/02/17 22:00 (Dulcolax Supp) 10 mg DAILY PRN RECTAL 03/02/17 22:00 (Desyrel) 100 mg HS PO 03/03/17 00:00 03/03/17 01:26 (Colyte Liq) 4,000 ml ONCE ONCE PO 03/03/17 16:00 03/03/17 16:01 UNV (Protonix) 40 mg Q12HR PO 03/03/17 09:30 UNV Family History father from colon cancer Social History Denies ETOH and smoking history Lives with family Disabled Physical Exam Vital Signs Vital Signs Date Time Temp Pulse Resp B/P (MAP) Pulse Ox O2 Delivery O2 Flow Rate FiO2 03/03/17 09:27 98.8 81 18 154/78 (103) 94 03/03/17 04:00 98.8 87 20 157/82 (107) 95 03/03/17 00:00 100.1 110 20 111/67 (82) 95 03/02/17 22:37 03/02/17 22:37 89 18 135/86 (102) 95 Room Air 03/02/17 19:01 99.1 86 21 187/106 (133) 98 Room Air 03/02/17 19:00 86 21 98 Room Air 03/02/17 18:56 99.1 84 21 187/106 (133) 98 Physical Exam GENERAL: This is a well-nourished, well-developed patient, in no apparent distress. SKIN: No rashes, ecchymoses or lesions. Cool and dry. CARDIOVASCULAR: Regular rate and rhythm without murmurs, gallops, or rubs. RESPIRATORY: Clear to auscultation. Breath sounds equal bilaterally. No wheezes , rales, or rhonchi. GASTROINTESTINAL: Abdomen soft, non-tender, nondistended. No hepato-splenomegaly , or palpable masses. No guarding. MUSCULOSKELETAL: Extremities without clubbing, cyanosis, or edema. No joint tenderness, effusion, or edema noted. No calf tenderness. Negative Homans sign bilaterally. NEUROLOGICAL: Awake and alert. Normal speech. Laboratory Laboratory Tests Test 03/02/17 19:30 03/02/17 19:40 03/03/17 04:40 White Blood Count 6.9 6.5 Red Blood Count 4.07 3.86 Hemoglobin 11.6 10.9 Hematocrit 34.8 33.2 Mean Corpuscular Volume 85.4 86.0 Mean Corpuscular Hemoglobin 28.4 28.2 Mean Corpuscular Hemoglobin Concent 33.3 32.8 Red Cell Distribution Width 15.7 16.2 Platelet Count 189 191 Mean Platelet Volume 8.0 8.4 Neutrophils (%) (Auto) 73.9 72.9 Lymphocytes (%) (Auto) 14.4 16.0 Monocytes (%) (Auto) 10.5 10.0 Eosinophils (%) (Auto) 0.5 0.3 Basophils (%) (Auto) 0.7 0.8 Neutrophils # (Auto) 5.1 4.7 Lymphocytes # (Auto) 1.0 1.0 Monocytes # (Auto) 0.7 0.6 Eosinophils # (Auto) 0.0 0.0 Basophils # (Auto) 0.0 0.1 CBC Comment DIFF FINAL DIFF FINAL Differential Comment Prothrombin Time 10.6 Prothromb Time International Ratio 1.0 Activated Partial Thromboplast Time 24.7 Blood Urea Nitrogen 13 13 Creatinine 1.06 0.99 Random Glucose 119 119 Total Protein 7.6 Albumin 3.0 Calcium Level 8.3 8.1 Magnesium Level 1.8 Alkaline Phosphatase 98 Aspartate Amino Transf (AST/SGOT) 20 Alanine Aminotransferase (ALT/SGPT) 35 Total Bilirubin 0.3 Sodium Level 139 137 Potassium Level 3.6 3.8 Chloride Level 105 104 Carbon Dioxide Level 25.2 27.0 Anion Gap 9 6 Estimat Glomerular Filtration Rate 53 57 Total Creatine Kinase 50 Troponin I LESS THAN 0.02 B-Type Natriuretic Peptide 97 Lipase 63 Urine Color LIGHT-YELLOW Urine Turbidity CLEAR Urine pH 8.0 Urine Specific [place] 1.008 Urine Protein NEG Urine Glucose (UA) NEG Urine Ketones NEG Urine Occult Blood NEG Urine Nitrite NEG Urine Bilirubin NEG Urine Urobilinogen LESS THAN 2.0 Urine Leukocyte Esterase NEG Urine WBC LESS THAN 1 Microscopic Urinalysis Comment CULT NOT INDICATED Result Diagram: 03/03/1743903/03/17439 Imaging Last 72 hours Impressions Chest X-Ray 03/02/171913 Signed Impressions: Service Date/Time: Thursday, March 02, 2017 19:30 - CONCLUSION: No acute disease. MD Terri Akers VTE Risk Assessment Caprini VTE Risk Assessment: No/Low Risk (score <= 1) Tenzinrini Risk Assessment Model Point Value = 1 Point Value = 2 Point Value = 3 Point Value = 5 Age 41-60 Minor surgery BMI > 25 kg/m2 Swollen legs Varicose veins or History of unexplained or recurrent spontaneous Oral contraceptives or hormone replacement Sepsis (< 1 month) Serious lung disease, including pneumonia (< 1 month) Abnormal pulmonary function Acute myocardial infarction Congestive heart failure (< 1 month) History of inflammatory bowel disease Medical patient at bed rest Age 61-74 Arthroscopic surgery Major open surgery (> 45 min) Laparoscopic surgery (> 45 min) Malignancy Confined to bed (> 72 hours) Immobilizing plaster cast Central venous access Age >= 75 History of VTE Family history of VTE Factor V Leiden Prothrombin [id number] Lupus anticoagulant Anticardiolipin antibodies Elevated serum homocysteine Heparin-induced thrombocytopenia Other congenital or acquired thrombophilia Stroke (< 1 month) Elective arthroplasty Hip, pelvis, or leg fracture Acute spinal cord injury (< 1 month) Prophylaxis Regimen Total Risk Factor Score Risk Level Prophylaxis Regimen 0-1 Low Early ambulation 2 Moderate Order ONE of the following: *Sequential Compression Device (SCD) *Heparin 5000 units SQ BID 3-4 Higher Order ONE of the following medications: *Heparin 5000 units SQ TID *Enoxaparin/Lovenox 40 mg SQ daily (WT < 150 kg, CrCl > 30 mL/min) *Enoxaparin/Lovenox 30 mg SQ daily (WT < 150 kg, CrCl > 10-29 mL/min) *Enoxaparin/Lovenox 30 mg SQ BID (WT < 150 kg, CrCl > 30 mL/min) AND/OR *Sequential Compression Device (SCD) 5 or more Highest Order ONE of the following medications: *Heparin 5000 units SQ TID (Preferred with Epidurals) *Enoxaparin/Lovenox 40 mg SQ daily (WT < 150 kg, CrCl > 30 mL/min) *Enoxaparin/Lovenox 30 mg SQ daily (WT < 150 kg, CrCl > 10-29 mL/min) *Enoxaparin/Lovenox 30 mg SQ BID (WT < 150 kg, CrCl > 30 mL/min) AND *Sequential Compression Device (SCD) Assessment and Plan Problem List: (1) Abdominal pain ICD Codes: R10.9 - Unspecified abdominal pain (2) Nausea & vomiting ICD Codes: R11.2 - Nausea with vomiting, unspecified (3) Abdominal pain ICD Codes: R10.9 - Unspecified abdominal pain Status: Acute (4) Nausea & vomiting ICD Codes: R11.2 - Nausea with vomiting, unspecified Status: Acute (5) Insomnia ICD Codes: G47.00 - Insomnia, unspecified Status: Acute (6) Hypertension ICD Codes: I10 - Essential (primary) hypertension Status: Chronic (7) Hypothyroidism ICD Codes: E03.9 - Hypothyroidism, unspecified Status: Acute (8) GERD (gastroesophageal reflux disease) ICD Codes: K21.9 - Gastro-esophageal reflux disease without esophagitis Status: Acute Assessment and Plan 03/03/17 Nausea and vomiting: GI consulted CT scan of abdomen and pelvis ordered. Plan for EGD and colonscopy in AM. Stool studies also ordered. Protonix BID. Zofran and reglan PRN Anemia: HGB 10.9 will continue to monitor. HTN: Elevated will add norvasc daily Hypothyroidism : replacement continued will check TSH level in AM GLORIA: Improving. On IVF Back pain: Continue gabapentin. Reports that she does not take methadone of Percocet which is on reconcile meds. Has implanted pain pump will monitor. Migraines: Will order Fioricet as needed. I and the FOOTBALL COACH have both examined this patient and reviewed this note and I agree with these findings and plan of care. Kimberly Paiz. FOOTBALL COACH Mar 03, 2017 10:30
[2017-03-03] MEDS: PANTOPRAZOLE SOD 40 MG DELAYED RELEASE TAB PO SCH ×2 (10:36→21:16)
[2017-03-03] MEDS ORDERED: POVIDONE IODINE 5% (ANTISEPSIS KIT) 4 APPLICATIONS EACH NARE PRN (11:15)
[2017-03-03] MEDS ORDERED: LACTATED RINGER'S 1000 ML IV PRN (11:15)
[2017-03-03] MEDS ORDERED: CHLORHEXIDINE GLUCONATE 2 % 1 PACK (2 CLOTHS) TOPICAL PRN (11:15)
[2017-03-03] MEDS ORDERED: METOPROLOL TARTRATE 25 MG TAB PO PRN (11:15)
[2017-03-03] MEDS ORDERED: SODIUM CHLORID 0.9% 500 ML IV PRN (11:15)
[2017-03-03] MEDS ORDERED: DIATRIZOATE MEGLUM/DIATRIZOATE SOD 9 ML CUP PO ONE (11:30)
[2017-03-03] MEDS: ACETAMIN 325 MG/BUTALBITAL 50 MG/CAFFEINE 40 MG TAB PO PRN ×2 (14:50→22:00)
[2017-03-03] MEDS ORDERED: PEG (High)/E-LYTE SOLN 4000 ML BTL PO ONE (16:00)
[2017-03-03] MEDS: METOCLOPRAMIDE HCL 10 MG/2 ML VIAL IV PUSH PRN (17:02)
[2017-03-03] MEDS ORDERED: IOHEXOL 350 MG/ML 10 ML VIAL (for RAD DIAG) IVCONTRAST ONE (18:23)
--- NOTE | 2017-03-03 19:58 | RADRPT ---
EXAM DATE/TIME: 03/03/2017 18:04 [facility] COMPARISON: CT ABDOMEN & PELVIS W CONTRAST, November 22, 2015, 21:19. INDICATIONS : Diffuse abdomen pain in mid region. IV CONTRAST: 100 cc Omnipaque 350 (iohexol) IV ORAL CONTRAST: Prescribed oral contrast ingested. RADIATION DOSE: 9.96 CTDIvol (mGy) MEDICAL HISTORY : Cardiovascular disease. Thyroid cancer. SURGICAL HISTORY : Cholecystectomy. Tubal ligation.Tubal ligation.Pain pump. ENCOUNTER: Initial ACUITY: 2 days PAIN SCALE: 3/10 LOCATION: Bilateral upper quadrant TECHNIQUE: Volumetric scanning of the abdomen and pelvis was performed. Using automated exposure control and ad justment of the mA and/or kV according to patient size, radiation dose was kept as low as reasonably achievable to obtain optimal diagnostic quality images. DICOM format image data is available electro nically for review and comparison. FINDINGS: LOWER LUNGS: The visualized lower lungs are clear. Small paraesophageal hiatal hernia LIVER: Stable hypodensity in the inferior-aspect of the left hepatic lobe and lower right hepatic lobe with the latter measuring 8 mm in diameter-both characteristic of benign cysts. There is no dilation of t he biliary tree. Patient appears to be status post cholecystectomy. SPLEEN: Normal size without lesion. PANCREAS: Within normal limits. KIDNEYS: Severe cortical scarring and lobulation in both kidneys, unchanged. ADRENAL GLANDS: Within normal limits. VASCULAR: There is no aortic aneurysm. BOWEL/MESENTERY: Severe, uncomplicated diverticular disease of the descending and sigmoid colon without diverticulitis . ABDOMINAL WALL: Within normal limits. RETROPERITONEUM: There is no lymphadenopathy. BLADDER: No wall thickening or mass. REPRODUCTIVE: Within normal limits. INGUINAL: There is no lymphadenopathy or hernia. MUSCULOSKELETAL: Spinal stimulator with the control panel in the left lower abdominal quadrant and the lead wire enter ing the mid lumbar spine tracking cephalad. Otherwise intact. CONCLUSION: 1. No acute intraperitoneal or pelvic process to explain current clinical symptoms. 2. Stable findings with significant diverticular disease involving the descending and sigmoid colon w ithout diverticulitis, small paraesophageal hiatal hernia and benign small hepatic cysts. Ketan Aguirre MD on March 03, 2017 at 19:51 Board Certified Radiologist. This report was verified electronically.
[2017-03-03] MEDS ORDERED: TRAZODONE 200 MG PO SCH (21:00)
[2017-03-03] MEDS: GABAPENTIN 300 MG CAP PO SCH (21:16)
[2017-03-04] VITALS (9 sets, daily range): BP systolic 100–168; BP diastolic 71–98; PULSE 69–100; RESP 17–20; TEMP 97.6–98.2; O2SAT 93–96
[2017-03-04 00:36] LABS: C. DIFF EPI 027 PRESUMPTIVE NEGATIVE (NEGATIVE)
[2017-03-04] MEDS: LEVOTHYROXINE SODIUM 200 MCG TAB PO SCH (05:07)
[2017-03-04 07:18] LABS: AUTOMATED NEUTROPHIL # 3.5 TH/MM3 (1.8-7.7); BASOPHIL # 0.1 TH/MM3 (0-0.2); BASOPHIL % 0.8 % (0.0-2.0); EOSINOPHIL # 0.2 TH/MM3 (0-0.4); EOSINOPHIL % 3.5 % (0.0-4.0); HEMATOCRIT 31.6 % (35.0-46.0); HEMO FLAGS DIFF FINAL; LYMPH % 28.2 % (9.0-44.0); LYMPHOCYTE # 1.8 TH/MM3 (1.0-4.8); MEAN CELL VOLUME 86.4 FL (80.0-100.0); MEAN CORPUSCULAR HEMOGLOBIN 28.5 PG (27.0-34.0); MEAN CORPUSCULAR HGB CONC 32.9 % (32.0-36.0); MONO % 12.8 % (0.0-8.0); NEUT % 54.7 % (16.0-70.0); PLATELET COUNT 155 TH/MM3 (150-450); RED BLOOD COUNT 3.66 MIL/MM3 (4.00-5.30); RED CELL DISTRIBUTION WIDTH 16.1 % (11.6-17.2); WHITE BLOOD COUNT 6.4 TH/MM3 (4.0-11.0)
[2017-03-04 07:58] LABS: BICARBONATE 29.3 MEQ/L (21.0-32.0); FREE T3 1.44 PG/ML (2.18-3.98); FREE T4 0.91 NG/DL (0.76-1.46)
[2017-03-04 08:03] LABS: POTASSIUM 2.7 MEQ/L (3.5-5.1)
[2017-03-04] MEDS: ACETAMIN 325 MG/BUTALBITAL 50 MG/CAFFEINE 40 MG TAB PO PRN ×2 (08:11→17:42)
[2017-03-04] MEDS: QUEtiapine FUMARATE 300 MG TAB PO SCH (08:12)
[2017-03-04] MEDS: PANTOPRAZOLE SOD 40 MG DELAYED RELEASE TAB PO SCH ×2 (08:12→21:07)
[2017-03-04] MEDS: GABAPENTIN 300 MG CAP PO SCH ×2 (08:12→21:08)
[2017-03-04] MEDS: SODIUM CHLORIDE 0.9% FLUSH 10 ML FLUSH IV FLUSH SCH ×2 (08:12→21:08)
[2017-03-04] MEDS ORDERED: POTASSIUM CHLORIDE 20 MEQ CONTROLLED RELEASE TAB PO ONE (08:45)
[2017-03-04] MEDS ORDERED: POTASSIUM CHLOR 20 MEQ PREMIX 100 ML IV ONE (09:30)
[2017-03-04] MEDS ORDERED: SODIUM CHLOR 0.9% 250 ML INJ 250 ML IV ONE (10:45)
--- NOTE | 2017-03-04 11:17 | HHI.PR ---
Subjective Remarks Patient has had prep for EGD and colonoscopy today. reports she was up all night. Hypokalemia noted on labs. Objective Vital Signs Date Time Temp Pulse Resp B/P (MAP) Pulse Ox O2 Delivery O2 Flow Rate FiO2 03/04/17 09:06 16 03/04/17 08:58 77 03/04/17 08:00 98.2 72 20 168/98 (121) 93 03/04/17 05:00 97.6 69 17 149/83 (105) 94 03/04/17 00:30 98.1 77 17 168/76 (106) 94 03/03/17 23:00 88 03/03/17 20:30 98.6 96 17 129/60 (83) 94 03/03/17 18:30 98.4 75 17 164/90 (114) 94 03/03/17 16:54 76 03/03/17 12:57 77 03/03/17 12:00 98.4 75 18 168/94 (118) 96 I/O 03/03/17 03/03/17 03/03/17 03/04/17 03/04/17 03/04/17 07:00 15:00 23:00 07:00 15:00 23:00 Intake Total 1440 ml 240 ml Balance 1440 ml 240 ml Intake Oral 1440 ml 240 ml # Voids 2 13 3 1 # Bowel Movements 3 3 Result Diagram: 03/04/17 0615 03/04/17 0615 Imaging Last 72 hours Impressions Abdomen/Pelvis CT 03/03/17 0000 Signed Impressions: Service Date/Time: Friday, March 03, 2017 18:04 - CONCLUSION: 1. No acute intraperitoneal or pelvic process to explain current clinical symptoms. 2. Stable findings with significant diverticular disease involving the descending and sigmoid colon without diverticulitis, small paraesophageal hiatal hernia and benign small hepatic cysts. Ketan Aguirre MD Chest X-Ray 03/02/17 191 Signed Impressions: Service Date/Time: Thursday, March 02, 2017 19:30 - CONCLUSION: No acute disease. Anthony Muñiz MD Objective Remarks GENERAL: alert and cooperative SKIN: Warm and dry. HEAD: Normocephalic. EYES: No scleral icterus. No injection or drainage. NECK: Supple, trachea midline. No JVD or lymphadenopathy. CARDIOVASCULAR: Regular rate and rhythm without murmurs, gallops, or rubs. RESPIRATORY: Breath sounds equal bilaterally. No accessory muscle use. GASTROINTESTINAL: Abdomen soft, non-tender, nondistended. MUSCULOSKELETAL: No cyanosis, or edema. BACK: Nontender without obvious deformity. No CVA tenderness. Medications and IVs Current Medications Medications (Trade) Dose Ordered Sig/Obdulia Route Start Time Stop Time Status Last Admin (NS Flush) 2 ml UNSCH PRN IV FLUSH 03/02/17 22:00 (NS Flush) 2 ml BID IV FLUSH 03/03/17 09:00 03/04/17 08:12 (Zofran Inj) 4 mg Q6H PRN IVP 03/02/17 22:00 03/03/17 12:35 (Reglan Inj) 5 mg Q6H PRN IV PUSH 03/02/17 22:00 03/03/17 17:02 (Dulcolax Supp) 10 mg DAILY PRN RECTAL 03/02/17 22:00 (Desyrel) 100 mg HS PO 03/03/17 00:00 03/03/17 01:26 (Protonix) 40 mg Q12HR PO 03/03/17 09:30 03/04/17 08:12 (Neurontin) 600 mg BID PO 03/03/17 21:00 03/04/17 08:12 (Synthroid) 200 mcg DAILY@0600 PO 03/04/17 06:00 03/04/17 05:07 (SEROquel) 300 mg DAILY PO 03/04/17 09:00 03/04/17 08:12 (Norvasc) 10 mg DAILY PO 03/03/17 11:30 03/04/17 08:12 (Fioricet 325-50-40) 1 tab Q8H PRN PO 03/03/17 12:00 03/04/17 08:11 Lactated Ringer's 1,000 ml @ 30 mls/hr Q24H PRN IV 03/03/17 11:15 03/06/17 11:14 Sodium Chloride 500 ml @ 30 mls/hr [id number] PRN IV 03/03/17 11:15 03/06/17 11:14 (Lopressor) 25 mg PRODUCT CONTROLLER PRN PO 03/03/17 11:15 03/06/17 11:14 (Betadine 5% Antisepsis Kit) 1 applic PRODUCT CONTROLLER PRN EACH NARE 03/03/17 11:15 03/06/17 11:14 (Chlorhexidine 2% Cloth) 3 pack PRODUCT CONTROLLER PRN TOPICAL 03/03/17 11:15 03/06/17 11:14 Potassium Chloride 100 ml @ 50 mls/hr ONCE ONCE IV 03/04/17 09:30 03/04/17 11:29 03/04/17 09:57 Assessment and Plan Problem List: (1) Abdominal pain ICD Codes: R10.9 - Unspecified abdominal pain (2) Nausea & vomiting ICD Codes: R11.2 - Nausea with vomiting, unspecified (3) Abdominal pain ICD Codes: R10.9 - Unspecified abdominal pain Status: Acute (4) Nausea & vomiting ICD Codes: R11.2 - Nausea with vomiting, unspecified Status: Acute (5) Insomnia ICD Codes: G47.00 - Insomnia, unspecified Status: Acute (6) Hypertension ICD Codes: I10 - Essential (primary) hypertension Status: Chronic (7) Hypothyroidism ICD Codes: E03.9 - Hypothyroidism, unspecified Status: Acute (8) GERD (gastroesophageal reflux disease) ICD Codes: K21.9 - Gastro-esophageal reflux disease without esophagitis Status: Acute Assessment and Plan 03/03/17 Nausea and vomiting: GI consulted CT scan of abdomen and pelvis ordered. Plan for EGD and colonscopy in AM. Stool studies also ordered. Protonix BID. Zofran and reglan PRN Anemia: HGB 10.9 will continue to monitor. HTN: Elevated will add norvasc daily Hypothyroidism : replacement continued will check TSH level in AM GLORIA: Improving. On IVF Back pain: Continue gabapentin. Reports that she does not take methadone of Percocet which is on reconcile meds. Has implanted pain pump will monitor. Migraines: Will order Fioricet as needed. 03/04/17 Abominal discomfort: CT scan of abdomen and pelvis with no acute intraperitoneal or pelvic process to explain current clinical symptoms. Stable findings with significant diverticular disease involving the descending and sigmoid colon without diverticulitis, small paraesophageal hiatal hernia and benign small hepatic cysts. EGD and colonscopy today. Stool studies are pending. HTN: continues to be elevated. Norvasc added yesterday will add PRN clonidine. Hypokalemia: K 2.7 Replacement given. Recheck ordered. Anemia: HGB stable will continue to monitor. Hypocalcemia: Will order protein corrected calcium. Ca 7.7 I and the BLOOD TESTER have both examined this patient and reviewed this note and I agree with these findings and plan of care. Kimberly Paiz. BLOOD TESTER Mar 04, 2017 11:17
[2017-03-04] MEDS ORDERED: cloNIDine HCL 0.1 MG TAB PO PRN (11:30)
[2017-03-04] MEDS ORDERED: LIDOCAINE HCL 1% PF 5 ML SYRINGE OTHER ONE (12:00)
[2017-03-04] MEDS ORDERED: PROPOFOL 200 MG/20 ML AMP IV ONE (12:00)
[2017-03-04 12:06] LABS: CALCIUM-PROTEIN CORRECTED 7.7 MG/DL (8.5-10.1)
--- NOTE | 2017-03-04 14:05 | GIPROC ---
[facility] [address] [facility]. [facility], [address] COLONOSCOPY PROCEDURE REPORT EXAM DATE: 03/04/2017 PATIENT NAME: Tammy Manley MR #: [id number] BIRTHDATE: 1955 ENDOSCOPIST: Rajni Beaulieu MD ORDER #: [id number] EEO OFFICER: Jace Deleon and Osiris Casanova STATUS: inpatient INDICATIONS: The patient is a 62 yr old female here for a colonoscopy due to diarrhea, abd pain PROCEDURE PERFORMED: Colonoscopy with biopsy MEDICATIONS: None and Per Anesthesia. PREP QUALITY: good PREP TYPE:Other: ESTIMATED BLOOD LOSS: None CONSENT: The patient understands the risks and benefits of the procedure and understands that these risks include, but are not limited to: sedation, allergic reaction, infection, perforation and/or bleeding. Alternative means of evaluation and treatment include, among others: physical exam, x-rays, and/or surgical intervention. The patient elects to proceed with this endoscopic procedure. medical equipment was checked for proper function. Hand hygiene and appropriate measures for infection prevention was taken. After the risks, benefits and alternatives of the procedure were thoroughly explained, Informed consent was verified, confirmed and timeout was successfully executed by the treatment team. A digital exam revealed external hemorrhoids The Pentax EC-[id number] endoscope was introduced through the anus and advanced to the cecum, which was identified by both the appendix and ileocecal valve. The instrument was then slowly withdrawn as the colon was fully examined. COLON FINDINGS: The colonic mucosa appeared normal. Diverticulosis sigmoid, descending -random biopsy from ascending, descending to r/o microscopic colitis. Retroflexed views revealed internal hemorrhoids and Retroflexed views revealed small internal hemorrhoids The scope was then completely withdrawn from the patient and the procedure terminated. PROCEDURE WITHDRAWAL TIME:6minutes ADVERSE EVENTS: There were no complications. IMPRESSIONS: 1. The colonic mucosa appeared normal 2. Retroflexed views revealed internal hemorrhoids 3. Retroflexed views revealed small internal hemorrhoids 4. Revealed external hemorrhoids RECOMMENDATIONS: 1. Await biopsy results. Biopsy results will not be ready for 7-10 days. If you don't hear from us in two weeks, call our office for results. 2. Benefiber 2 tsp daily 3. Probiotics from any [facility] or health food store 4. Yearly rectal exams RECALL: Return 5 years Colonoscopy Rajni Beaulieu MD eSigned: Rajni Beaulieu MD 03/04/2017 2:05 PM cc:
--- NOTE | 2017-03-04 14:08 | GIPROC ---
[facility] [address] [facility]. [facility], [address] EGD WITH DILATION PROCEDURE REPORT EXAM DATE: 03/04/2017 PATIENT NAME: Tammy Manley MR#: [id number] BIRTHDATE: 1955 ATTENDING: Rajni Beaulieu MD ORDER #: [id number] STALLION KEEPER: Jace Deleon and Osiris Casanova STATUS: inpatient INDICATIONS: The patient is a 62 yr old female here for an EGD with dilation due to nausea, vomiting, dysphagia PROCEDURE PERFORMED: EGD w/ biopsy EGD w/ dilation of esophagus via guidewire MEDICATIONS: None and Per Anesthesia. TOPICAL ANESTHETIC: none CONSENT: The patient understands the risks and benefits of the procedure and understands that these risks include, but are not limited to: sedation, allergic reaction, infection, perforation and/or bleeding. Alternative means of evaluation and treatment include, among others: physical exam, x-rays, and/or surgical intervention. The patient elects to proceed with this endoscopic procedure. medical equipment was checked for proper function. Hand hygiene and appropriate measures for infection prevention was taken. After the risks, benefits and alternatives of the procedure were thoroughly explained, Informed consent was verified, confirmed and timeout was successfully executed by the treatment team. The patient was anesthetized with topical anesthesia and the EC-[id number] (Pedi C) endoscope was introduced through the mouth and advanced to the second portion of the duodenum. The instrument was slowly withdrawn as the mucosa was fully examined. 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 Dilation was performed at gastroesophageal junction. DILATOR: SIZE(S): RESISTANCE: HEME: APPEARANCE: Dilator: Savary over guidewire Size(s): 16 COMMENT: Retroflexed views revealed a hiatal hernia ADVERSE EVENTS: There were no complications. IMPRESSIONS: 1. 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 Retroflexed views revealed a hiatal hernia RECOMMENDATIONS: 1. Await biopsy results. Biopsy results will not be ready for 7-10 days. If you don't hear from us in two weeks, call our office for biopsy results. 2. Anti-reflux regimen 3. Continue PPI 4. Dilatations PRN REPEAT EXAM: Return 3 years EGD Rajni Beaulieu MD eSigned: Rajni Beaulieu MD 03/04/2017 2:07 PM cc: PATIENT NAME: Tammy Manley MR#: [id number]
[2017-03-04] MEDS ORDERED: CETIRIZINE HCL 10 MG TAB PO PRN (17:30)
[2017-03-04] MEDS: traZODone HCL 100 MG TAB PO SCH (21:08)
[2017-03-05] VITALS (11 sets, daily range): BP systolic 134–158; BP diastolic 75–96; PULSE 72–95; RESP 18–20; TEMP 97.4–99.7; O2SAT 92–98
[2017-03-05] MEDS: ACETAMIN 325 MG/BUTALBITAL 50 MG/CAFFEINE 40 MG TAB PO PRN ×2 (03:49→16:00)
[2017-03-05] MEDS ORDERED: POTASSIUM CHLORIDE 20 MEQ CONTROLLED RELEASE TAB PO ONE (05:45)
[2017-03-05] MEDS: LEVOTHYROXINE SODIUM 200 MCG TAB PO SCH (06:19)
[2017-03-05] MEDS: PANTOPRAZOLE SOD 40 MG DELAYED RELEASE TAB PO SCH ×2 (07:44→20:16)
[2017-03-05] MEDS: QUEtiapine FUMARATE 300 MG TAB PO SCH (07:44)
[2017-03-05] MEDS: GABAPENTIN 300 MG CAP PO SCH ×2 (07:44→20:16)
[2017-03-05] MEDS: SODIUM CHLORIDE 0.9% FLUSH 10 ML FLUSH IV FLUSH SCH ×2 (07:45→20:18)
[2017-03-05] MEDS: CALCIUM CARBONATE 1.25 GM (CA 500 MG) TAB PO SCH ×2 (07:45→20:16)
--- NOTE | 2017-03-05 08:33 | HHI.PR ---
Subjective Remarks Resting comfortably this morning. No abdominal pain reported. Objective Vital Signs Date Time Temp Pulse Resp B/P (MAP) Pulse Ox O2 Delivery O2 Flow Rate FiO2 03/05/17 08:25 98.5 75 18 158/89 (112) 94 03/05/17 05:44 98.8 86 18 147/75 (99) 98 03/05/17 04:02 77 03/05/17 00:09 98.4 79 18 134/83 (100) 96 03/05/17 00:00 72 03/04/17 20:43 98.1 76 18 100/71 (81) 96 03/04/17 20:27 82 03/04/17 17:17 77 03/04/17 16:00 97.8 100 20 112/81 (91) 95 03/04/17 14:43 72 20 94 03/04/17 14:41 90 Nasal Cannula 2 03/04/17 14:15 74 18 114/58 (76) 92 03/04/17 13:54 97.0 72 18 118/64 (82) 94 03/04/17 12:00 98.2 98 20 130/92 (105) 96 03/04/17 09:06 16 03/04/17 08:58 77 I/O 03/04/17 03/04/17 03/04/17 03/05/17 03/05/17 03/05/17 07:00 15:00 23:00 07:00 15:00 23:00 Intake Total 240 ml 750 ml Output Total 300 ml Balance 240 ml 750 ml -300 ml Intake Oral 240 ml IV Total 200 ml Other 550 ml Output Urine Total 300 ml # Voids 3 3 2 # Bowel Movements 3 2 1 Result Diagram: 03/04/17 0615 03/05/17 0109 Imaging Last 72 hours Impressions Abdomen/Pelvis CT 03/03/17 0000 Signed Impressions: Service Date/Time: Friday, March 03, 2017 18:04 - CONCLUSION: 1. No acute intraperitoneal or pelvic process to explain current clinical symptoms. 2. Stable findings with significant diverticular disease involving the descending and sigmoid colon without diverticulitis, small paraesophageal hiatal hernia and benign small hepatic cysts. Ketan Aguirre MD Chest X-Ray 03/02/17 1914 Signed Impressions: Service Date/Time: Thursday, March 02, 2017 19:30 - CONCLUSION: No acute disease. Anthony Muñiz MD Procedures 04/03 EGD and colonscopy Objective Remarks GENERAL: alert and cooperative SKIN: Warm and dry. HEAD: Normocephalic. EYES: No scleral icterus. No injection or drainage. NECK: Supple, trachea midline. No JVD or lymphadenopathy. CARDIOVASCULAR: Regular rate and rhythm without murmurs, gallops, or rubs. RESPIRATORY: Breath sounds equal bilaterally. No accessory muscle use. GASTROINTESTINAL: Abdomen soft, non-tender, nondistended. MUSCULOSKELETAL: No cyanosis, or edema. BACK: Nontender without obvious deformity. No CVA tenderness. Medications and IVs Current Medications Medications (Trade) Dose Ordered Sig/Obdulia Route Start Time Stop Time Status Last Admin (NS Flush) 2 ml UNSCH PRN IV FLUSH 03/02/17 22:00 (NS Flush) 2 ml BID IV FLUSH 03/03/17 09:00 03/05/17 07:45 (Zofran Inj) 4 mg Q6H PRN IVP 03/02/17 22:00 03/03/17 12:35 (Reglan Inj) 5 mg Q6H PRN IV PUSH 03/02/17 22:00 03/03/17 17:02 (Dulcolax Supp) 10 mg DAILY PRN RECTAL 03/02/17 22:00 (Desyrel) 100 mg HS PO 03/03/17 00:00 03/04/17 21:08 (Protonix) 40 mg Q12HR PO 03/03/17 09:30 03/05/17 07:44 (Neurontin) 600 mg BID PO 03/03/17 21:00 03/05/17 07:44 (Synthroid) 200 mcg DAILY@0600 PO 03/04/17 06:00 03/05/17 06:19 (SEROquel) 300 mg DAILY PO 03/04/17 09:00 03/05/17 07:44 (Norvasc) 10 mg DAILY PO 03/03/17 11:30 03/05/17 07:44 (Fioricet 325-50-40) 1 tab Q8H PRN PO 03/03/17 12:00 03/05/17 03:49 Lactated Ringer's 1,000 ml @ 30 mls/hr Q24H PRN IV 03/03/17 11:15 03/06/17 11:14 03/04/17 12:19 Sodium Chloride 500 ml @ 30 mls/hr [id number] PRN IV 03/03/17 11:15 03/06/17 11:14 (Lopressor) 25 mg FORENSIC EXAMINER PRN PO 03/03/17 11:15 03/06/17 11:14 (Betadine 5% Antisepsis Kit) 1 applic FORENSIC EXAMINER PRN EACH NARE 03/03/17 11:15 03/06/17 11:14 (Chlorhexidine 2% Cloth) 3 pack FORENSIC EXAMINER PRN TOPICAL 03/03/17 11:15 03/06/17 11:14 (Catapres) 0.1 mg Q6H PRN PO 03/04/17 11:30 (ZyrTEC) 10 mg DAILY PRN PO 03/04/17 17:30 03/04/17 17:40 (Oscal) 1,000 mg BID PO 03/05/17 09:00 03/05/17 07:45 Assessment and Plan Problem List: (1) Abdominal pain ICD Codes: R10.9 - Unspecified abdominal pain (2) Nausea & vomiting ICD Codes: R11.2 - Nausea with vomiting, unspecified (3) Nausea & vomiting ICD Codes: R11.2 - Nausea with vomiting, unspecified Status: Acute (4) Insomnia ICD Codes: G47.00 - Insomnia, unspecified Status: Acute (5) Hypertension ICD Codes: I10 - Essential (primary) hypertension Status: Chronic (6) Hypothyroidism ICD Codes: E03.9 - Hypothyroidism, unspecified Status: Acute (7) GERD (gastroesophageal reflux disease) ICD Codes: K21.9 - Gastro-esophageal reflux disease without esophagitis Status: Acute Assessment and Plan 03/03/17 Nausea and vomiting: GI consulted CT scan of abdomen and pelvis ordered. Plan for EGD and colonscopy in AM. Stool studies also ordered. Protonix BID. Zofran and reglan PRN Anemia: HGB 10.9 will continue to monitor. HTN: Elevated will add norvasc daily Hypothyroidism : replacement continued will check TSH level in AM GLORIA: Improving. On IVF Back pain: Continue gabapentin. Reports that she does not take methadone of Percocet which is on reconcile meds. Has implanted pain pump will monitor. Migraines: Will order Fioricet as needed. 03/04/17 Abominal discomfort: CT scan of abdomen and pelvis with no acute intraperitoneal or pelvic process to explain current clinical symptoms. Stable findings with significant diverticular disease involving the descending and sigmoid colon without diverticulitis, small paraesophageal hiatal hernia and benign small hepatic cysts. EGD and colonscopy today. Stool studies are pending. HTN: continues to be elevated. Norvasc added yesterday will add PRN clonidine. Hypokalemia: K 2.7 Replacement given. Recheck ordered. Anemia: HGB stable will continue to monitor. Hypocalcemia: Will order protein corrected calcium. Ca 7.7 03/05/17 Abdominal pain: denies any discomfort this morning. No nausea or vomiting. EGD and Colonscopy yesterday. Gastritis noted on EGD. Benefiber recommended and probiotics. HTN: continue Norvasc daily Hypokalemia: repeat K 3.4. 40 MEq given Hypocalcemia: Protein corrected calcium 7.7. Oscal ordered BID I and the MOBILE PHONE SALESPERSON have both examined this patient and reviewed this note and I agree with these findings and plan of care. Adrien Griffin DO Discussed Condition With Nursing Kimberly CruzP Mar 05, 2017 08:33
[2017-03-05] MEDS: CETIRIZINE HCL 10 MG TAB PO SCH ×2 (09:13→20:16)
[2017-03-05] MEDS: MORPHINE SULFATE 15 MG CONTROLLED RELEASE TAB PO SCH ×2 (09:13→20:18)
--- NOTE | 2017-03-05 12:12 | HHI.GIFU ---
Subjective Remarks REsting in bed. No complaints other than wanting diet advanced. No n/v. No abdominal pain at this time. No bleeding. (Olive Avery) Objective Vitals I&O Vital Signs Date Time Temp Pulse Resp B/P (MAP) Pulse Ox O2 Delivery O2 Flow Rate FiO2 03/05/17 11:40 97.4 85 20 143/84 (103) 92 03/05/17 08:25 98.5 75 18 158/89 (112) 94 03/05/17 08:25 86 03/05/17 05:44 98.8 86 18 147/75 (99) 98 03/05/17 04:02 77 03/05/17 00:09 98.4 79 18 134/83 (100) 96 03/05/17 00:00 72 03/04/17 20:43 98.1 76 18 100/71 (81) 96 03/04/17 20:27 82 03/04/17 17:17 77 03/04/17 16:00 97.8 100 20 112/81 (91) 95 03/04/17 14:43 72 20 94 03/04/17 14:41 90 Nasal Cannula 2 03/04/17 14:15 74 18 114/58 (76) 92 03/04/17 13:54 97.0 72 18 118/64 (82) 94 I/O 03/04/17 03/04/17 03/04/17 03/05/17 03/05/17 03/05/17 06:59 14:59 22:59 06:59 14:59 22:59 Intake Total 240 ml 750 ml Output Total 300 ml Balance 240 ml 750 ml -300 ml Intake Oral 240 ml IV Total 200 ml Other 550 ml Output Urine Total 300 ml # Voids 3 3 2 # Bowel Movements 3 2 1 Laboratory Laboratory Tests Test 03/05/17 01:09 Potassium Level 3.4 Date/Time Source Procedure Growth Status 03/03/17 21:00 Stool Stool Cryptosporidium Exam - Final NEGATIVE - NO CRYPTOSPORIDIUM ANTIGEN... Complete 03/03/17 21:00 Stool Stool Stool Pus (JOSE) - Final MODERATE WBC'S Complete 03/03/17 21:00 Stool Stool Giardia Antigen (JOSE) - Final NEGATIVE - NO GIARDIA ANTIGEN DETECTE... Complete Imaging Last Impressions Abdomen/Pelvis CT 03/03/17 0000 Signed Impressions: Service Date/Time: Friday, March 03, 2017 18:04 - CONCLUSION: 1. No acute intraperitoneal or pelvic process to explain current clinical symptoms. 2. Stable findings with significant diverticular disease involving the descending and sigmoid colon without diverticulitis, small paraesophageal hiatal hernia and benign small hepatic cysts. Ketan Aguirre MD Chest X-Ray 03/02/17 1914 Signed Impressions: Service Date/Time: Thursday, March 02, 2017 19:30 - CONCLUSION: No acute disease. Anthony Muñiz MD Physical Exam HEENT: Normocephalic; atraumatic; no jaundice. CHEST: CTA CARDIAC: RRR ABDOMEN: Soft, nondistended, nontender; no hepatosplenomegaly; bowel sounds are present in all four quadrants. EXTREMITIES: No clubbing, cyanosis, or edema. SKIN: Normal; no rash; no jaundice. FLAT KNITTER HELPER: No focal deficits; alert and oriented times three. (Olive AveryP) Assessment and Plan Plan ASSESSMENT: - Abdominal pain, n/v. 1 week hx of epigastric pain radiating to LUQ/RUQ ( describes as sore from vomiting) and n/v consisting of bilious material, loose stools. 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 FHx colon cancer in father. CT Scan abdomen and pelvis (03/03/17)---> No acute intraperitoneal or pelvic process to explain current clinical symptoms. Stable findings with significant diverticular disease involving the descending and sigmoid colon without diverticulitis, small paraesophageal hiatal hernia and benign small hepatic cysts. S/P EGD with dilatation, colonoscopy (03/04/17)---> 1. Gastritis antrum-biopsy esophagitis distal esophagsu-biopsy, duodenum normal-biopsy, retroflexion-s/ p Nilay fundoplication stricture distal esophagus s/p dilatation -Savary 16 2. Retroflexed views revealed a hiatal hernia 1. The colonic mucosa appeared normal 2. Retroflexed views revealed internal hemorrhoids 3. Retroflexed views revealed small internal hemorrhoids 4. Revealed external hemorrhoids. Pathology following. Cryptosporidium/Giardia negative. Moderate WBC. CDiff negative. Symptoms improved. Improved. Wanting regular diet. - Change in bowels, loose stools. EGD/Colonoscopy as above. CT as above. - BRBPR, occasional. Scant amount BRBPR when she wipes herself. Not currently having - Anemia. Stable. - GLORIA, Improved. Stable - HTN, Hypothyroidism, Chronic back pain. per attending. - FHx colorectal cancer in father. PLAN: - Okay to d/c home from GI standpoint - Await pathology - Protonix 40mg po BID - FU [place] 2 weeks - Pt seen and examined by Dr. Beaulieu and myself and this note is written on her behalf (Olive Avery) Olive Avery Mar 05, 2017 12:12 Rajni Beaulieu MD Mar 05, 2017 19:31
[2017-03-05] MEDS: ONDANSETRON HCL 4 MG/2 ML VIAL IVP PRN (18:18)
[2017-03-05] MEDS: traZODone HCL 100 MG TAB PO SCH (20:16)
[2017-03-06] VITALS (11 sets, daily range): BP systolic 129–170; BP diastolic 75–99; PULSE 77–111; RESP 18–20; TEMP 99.1–100.2; O2SAT 93–97
[2017-03-06] MEDS: ACETAMIN 325 MG/BUTALBITAL 50 MG/CAFFEINE 40 MG TAB PO PRN ×2 (01:16→15:51)
[2017-03-06] MEDS: LEVOTHYROXINE SODIUM 200 MCG TAB PO SCH (05:43)
[2017-03-06] MEDS ORDERED: IBUPROFEN 800 MG TAB PO ONE (05:45)
--- NOTE | 2017-03-06 08:15 | HHI.PR ---
Subjective Remarks pt with cephalgia and low temp today motrin given as she takes this at home also RUQ pain with palpation Objective Vital Signs Date Time Temp Pulse Resp B/P (MAP) Pulse Ox O2 Delivery O2 Flow Rate FiO2 03/06/17 04:47 100.1 91 18 137/88 (104) 97 03/06/17 04:00 96 03/06/17 01:16 99.5 106 18 170/99 (122) 95 03/05/17 20:56 99.7 90 18 140/95 (110) 96 03/05/17 20:12 95 03/05/17 16:00 92 03/05/17 15:43 98.4 89 20 150/96 (114) 94 03/05/17 12:30 80 03/05/17 11:40 97.4 85 20 143/84 (103) 92 03/05/17 08:25 98.5 75 18 158/89 (112) 94 03/05/17 08:25 86 I/O 03/05/17 03/05/17 03/05/17 03/06/17 03/06/17 03/06/17 07:00 15:00 23:00 07:00 15:00 23:00 Intake Total 840 ml Output Total 300 ml Balance -300 ml 840 ml Intake Oral 840 ml Output Urine Total 300 ml # Voids 2 4 2 1 # Bowel Movements 1 0 Result Diagram: 03/04/17 0615 03/05/17 0109 Imaging Last Impressions Abdomen/Pelvis CT 03/03/17 0000 Signed Impressions: Service Date/Time: Friday, March 03, 2017 18:04 - CONCLUSION: 1. No acute intraperitoneal or pelvic process to explain current clinical symptoms. 2. Stable findings with significant diverticular disease involving the descending and sigmoid colon without diverticulitis, small paraesophageal hiatal hernia and benign small hepatic cysts. Ketan Aguirre MD Chest X-Ray 03/02/17 1914 Signed Impressions: Service Date/Time: Thursday, March 02, 2017 19:30 - CONCLUSION: No acute disease. Anthony Muñiz MD Procedures 04/03 EGD and colonscopy Objective Remarks GENERAL: Well-nourished, well-developed patient. SKIN: Warm and dry. HEAD: Normocephalic. EYES: No scleral icterus. No injection or drainage. NECK: Supple, trachea midline. No JVD or lymphadenopathy. CARDIOVASCULAR: Regular rate and rhythm without murmurs, gallops, or rubs. RESPIRATORY: Breath sounds equal bilaterally. No accessory muscle use. GASTROINTESTINAL: Abdomen soft,with TUQ tenderness EXTREMITIES: No cyanosis, or edema. NEUROLOGICAL: Awake, alert, and oriented x 3. Non-focal. Medications and IVs Inpatient Medications Acetaminophen/ Butalbital/ Caffeine (Fioricet 325-50-40) 1 tab Q8H PRN PO headache Last administered on 03/06/17 01:16; Start 03/03/17 at 12:00 Amlodipine Besylate (Norvasc) 10 mg DAILY PO Last administered on 03/05/17 07: 44; Start 03/03/17 at 11:30 Bisacodyl (Dulcolax Supp) 10 mg DAILY PRN RECTAL SEVERE CONSITIPATION; Start 03/02/17 at 22:00 Calcium Carbonate (Oscal) 1,000 mg BID PO Last administered on 03/05/17 20:16 ; Start 03/05/17 at 09:00 Cetirizine HCl (ZyrTEC) 10 mg Q12HR PO Last administered on 03/05/17 20:16; Start 03/05/17 at 09:00 Chlorhexidine Gluconate (Chlorhexidine 2% Cloth) 3 pack VALVE TECHNICIAN PRN TOPICAL SEE LABEL COMMENTS; Start 03/03/17 at 11:15; Stop 03/06/17 at 11:14 Clonidine (Catapres) 0.1 mg Q6H PRN PO SBP>160, DBP>90 Last administered on 00:01; Start 03/04/17 at 11:30 Diatrizoate Meglum/ Diatrizoate Sod ( Gastroview Liq) 18 ml ONCE ONCE PO Last administered on 03/03/17 11:38; Start 03/03/17 at 11:30; Stop 03/03/17 at 11:31; Status DC Gabapentin (Neurontin) 600 mg BID PO Last administered on 03/05/17 20:16; Start 03/03/17 at 21:00 Ibuprofen (Motrin) 800 mg NOW ONCE PO Last administered on 03/06/17 05:43; Start 03/06/17 at 05:45; Stop 03/06/17 at 05:46; Status DC Lactated Ringer's 1,000 ml @ 30 mls/hr Q24H PRN IV SEE LABEL COMMENTS Last administered on 03/04/17 12:19; Start 03/03/17 at 11:15; Stop 03/06/17 at 11: 14 Levothyroxine Sodium (Synthroid) 200 mcg DAILY@0600 PO Last administered on 05:43; Start 03/04/17 at 06:00 Magnesium Hydroxide (Milk Of Magnesia Liq) 30 ml Q12H PRN PO Mild constipation ; Start 03/02/17 at 22:00; Stop 03/03/17 at 10:25; Status DC Metoclopramide HCl (Reglan Inj) 5 mg Q6H PRN IV PUSH SEE LABEL COMMENTS Last administered on 03/03/17 17:02; Start 03/02/17 at 22:00 Metoprolol Tartrate (Lopressor) 25 mg VALVE TECHNICIAN PRN PO SEE LABEL COMMENTS; Start 03/03/17 at 11:15; Stop 03/06/17 at 11:14 Morphine Sulfate (Oramorph Sr) 15 mg Q12HR PO Last administered on 03/05/17 20 :18; Start 03/05/17 at 09:00 Non-Formulary Medication 200 mg HS PO ; Start 03/03/17 at 21:00; Stop at 21:00; Status DC Ondansetron HCl (Zofran Inj) 4 mg Q6H PRN IVP NAUSEA OR VOMITING Last administered on 03/05/17 18:18; Start 03/02/17 at 22:00 Pantoprazole Sodium (Protonix) 40 mg Q12HR PO Last administered on 03/05/17 20 :16; Start 03/03/17 at 09:30 Polyethylene Glycol/ Electrolytes (Colyte Liq) 4,000 ml ONCE ONCE PO Last administered on 03/03/17 16:03; Start 03/03/17 at 16:00; Stop 03/03/17 at 16 :01; Status DC Potassium Chloride (KCl) 40 meq ONCE ONCE PO Last administered on 03/05/17 06 :20; Start 03/05/17 at 05:45; Stop 03/05/17 at 05:46; Status DC Povidone Iodine (Betadine 5% Antisepsis Kit) 1 applic VALVE TECHNICIAN PRN EACH NARE SEE LABEL COMMENTS; Start 03/03/17 at 11:15; Stop 03/06/17 at 11:14 Quetiapine Fumarate (SEROquel) 300 mg DAILY PO Last administered on 03/05/17 07:44; Start 03/04/17 at 09:00 Senna/Docusate Sodium (Anahi-Colace) 1 tab BID PO Last administered on 09:05; Start 03/03/17 at 09:00; Stop 03/03/17 at 10:25; Status DC Sennosides (Senokot) 17.2 mg Q12H PRN PO Moderate constipation; Start at 22:00; Stop 03/03/17 at 10:25; Status DC Sodium Chloride 250 ml @ 0 mls/hr ONCE ONCE IV Last administered on 10:44; Start 03/04/17 at 10:45; Stop 03/04/17 at 10:46; Status DC Sodium Chloride (NS Flush) 2 ml BID IV FLUSH Last administered on 03/05/17 20: 18; Start 03/03/17 at 09:00 Trazodone HCl (Desyrel) 100 mg HS PO Last administered on 03/05/17 20:16; Start 03/03/17 at 00:00 Assessment and Plan Assessment and Plan abdominal pain reso;ving low temp will moniter Discussed Condition With pt and nursing will change serroquel to hs per pt request Adrien Griffin DO Mar 06, 2017 08:15
[2017-03-06] MEDS: ONDANSETRON HCL 4 MG/2 ML VIAL IVP PRN ×2 (08:26→23:21)
[2017-03-06] MEDS: CETIRIZINE HCL 10 MG TAB PO SCH ×2 (08:27→20:43)
[2017-03-06] MEDS: MORPHINE SULFATE 15 MG CONTROLLED RELEASE TAB PO SCH ×2 (08:28→20:44)
[2017-03-06] MEDS: GABAPENTIN 300 MG CAP PO SCH ×2 (08:28→20:43)
[2017-03-06] MEDS: CALCIUM CARBONATE 1.25 GM (CA 500 MG) TAB PO SCH ×3 (08:28→20:43)
[2017-03-06] MEDS: SODIUM CHLORIDE 0.9% FLUSH 10 ML FLUSH IV FLUSH SCH ×2 (08:28→20:44)
[2017-03-06] MEDS: PANTOPRAZOLE SOD 40 MG DELAYED RELEASE TAB PO SCH ×2 (08:28→20:44)
[2017-03-06] MEDS: QUEtiapine FUMARATE 300 MG TAB PO SCH ×2 (08:31→20:44)
[2017-03-06] MEDS: METOCLOPRAMIDE HCL 10 MG/2 ML VIAL IV PUSH PRN (13:02)
[2017-03-06] MEDS: IBUPROFEN 800 MG TAB PO PRN ×2 (14:58→20:49)
[2017-03-06] MEDS: traZODone HCL 100 MG TAB PO SCH (20:43)
[2017-03-07] VITALS (12 sets, daily range): BP systolic 112–169; BP diastolic 57–95; PULSE 78–104; RESP 16–22; TEMP 98–99.5; O2SAT 93–96
[2017-03-07] MEDS: ACETAMIN 325 MG/BUTALBITAL 50 MG/CAFFEINE 40 MG TAB PO PRN ×2 (03:01→11:42)
[2017-03-07] MEDS: LEVOTHYROXINE SODIUM 200 MCG TAB PO SCH (05:26)
[2017-03-07] MEDS: ONDANSETRON HCL 4 MG/2 ML VIAL IVP PRN (08:34)
[2017-03-07] MEDS: MORPHINE SULFATE 15 MG CONTROLLED RELEASE TAB PO SCH ×2 (08:35→21:00)
[2017-03-07] MEDS: SODIUM CHLORIDE 0.9% FLUSH 10 ML FLUSH IV FLUSH SCH ×2 (08:35→21:00)
[2017-03-07] MEDS: GABAPENTIN 300 MG CAP PO SCH ×2 (08:35→21:11)
[2017-03-07] MEDS: CETIRIZINE HCL 10 MG TAB PO SCH ×2 (08:35→21:11)
[2017-03-07] MEDS: CALCIUM CARBONATE 1.25 GM (CA 500 MG) TAB PO SCH ×2 (08:35→21:00)
[2017-03-07] MEDS: PANTOPRAZOLE SOD 40 MG DELAYED RELEASE TAB PO SCH ×2 (08:35→21:10)
--- NOTE | 2017-03-07 10:09 | HHI.PR ---
Subjective Remarks pt with cephalgia and low temp remain must consider neurological origin will consult neuro may require CSF exam Objective Vital Signs Date Time Temp Pulse Resp B/P (MAP) Pulse Ox O2 Delivery O2 Flow Rate FiO2 03/07/17 08:00 99.1 92 16 169/79 (109) 93 03/07/17 06:15 91 03/07/17 04:00 99.5 104 20 150/95 (113) 93 03/07/17 02:10 98 03/07/17 00:00 98.0 78 18 130/85 (100) 93 03/06/17 20:45 97 03/06/17 20:00 99.7 98 18 143/75 (97) 96 03/06/17 16:57 111 03/06/17 16:41 100.2 99 20 136/96 (109) 94 03/06/17 12:50 98 03/06/17 11:42 99.7 104 20 129/75 (93) 96 I/O 03/06/17 03/06/17 03/06/17 03/07/17 03/07/17 03/07/17 07:00 15:00 23:00 07:00 15:00 23:00 Intake Total 940 ml Balance 940 ml Intake Oral 940 ml # Voids 1 8 5 # Bowel Movements 0 1 Result Diagram: 03/04/1761403/05/17 0109 Procedures 04/03 EGD and colonscopy Objective Remarks GENERAL: Well-nourished, well-developed patient. SKIN: Warm and dry. HEAD: Normocephalic.tender over forehead EYES: No scleral icterus. No injection or drainage. NECK: tender with movement trachea midline. No JVD or lymphadenopathy. CARDIOVASCULAR: Regular rate and rhythm without murmurs, gallops, or rubs. RESPIRATORY: Breath sounds equal bilaterally. No accessory muscle use. GASTROINTESTINAL: Abdomen soft,with TUQ tenderness EXTREMITIES: No cyanosis, or edema. NEUROLOGICAL: Awake, alert, and oriented x 3. Non-focal. Medications and IVs Inpatient Medications Acetaminophen/ Butalbital/ Caffeine (Fioricet 325-50-40) 1 tab Q8H PRN PO headache Last administered on 03/07/17t 03:01; Start 03/03/17 at 12:00 Amlodipine Besylate (Norvasc) 10 mg DAILY PO Last administered on 03/07/17 08: 35; Start 03/03/17 at 11:30 Bisacodyl (Dulcolax Supp) 10 mg DAILY PRN RECTAL SEVERE CONSITIPATION; Start 03/02/17 at 22:00 Calcium Carbonate (Oscal) 1,000 mg BID PO Last administered on 03/07/17 08:35 ; Start 03/05/17 at 09:00 Cetirizine HCl (ZyrTEC) 10 mg Q12HR PO Last administered on 03/07/17 08:35; Start 03/05/17 at 09:00 Chlorhexidine Gluconate (Chlorhexidine 2% Cloth) 3 pack CONSTRUCTION STONEMASON PRN TOPICAL SEE LABEL COMMENTS; Start 03/03/17 at 11:15; Stop 03/06/17 at 11:18; Status DC Clonidine (Catapres) 0.1 mg Q6H PRN PO SBP>160, DBP>90 Last administered on 00:01; Start 03/04/17 at 11:30 Diatrizoate Meglum/ Diatrizoate Sod ( Gastroview Liq) 18 ml ONCE ONCE PO Last administered on 03/03/17 11:38; Start 03/03/17 at 11:30; Stop 03/03/17 at 11:31; Status DC Gabapentin (Neurontin) 600 mg BID PO Last administered on 03/07/17 08:35; Start 03/03/17 at 21:00 Ibuprofen (Motrin) 800 mg NOW ONCE PO Last administered on 03/06/17 05:43; Start 03/06/17 at 05:45; Stop 03/06/17 at 05:46; Status DC Lactated Ringer's 1,000 ml @ 30 mls/hr Q24H PRN IV SEE LABEL COMMENTS Last administered on 03/04/17 12:19; Start 03/03/17 at 11:15; Stop 03/06/17 at 11: 18; Status DC Levothyroxine Sodium (Synthroid) 200 mcg DAILY@0600 PO Last administered on 05:26; Start 03/04/17 at 06:00 Magnesium Hydroxide (Milk Of Magnesia Liq) 30 ml Q12H PRN PO Mild constipation ; Start 03/02/17 at 22:00; Stop 03/03/17 at 10:25; Status DC Metoclopramide HCl (Reglan Inj) 5 mg Q6H PRN IV PUSH SEE LABEL COMMENTS Last administered on 03/06/17 13:02; Start 03/02/17 at 22:00 Metoprolol Tartrate (Lopressor) 25 mg CONSTRUCTION STONEMASON PRN PO SEE LABEL COMMENTS; Start 03/03/17 at 11:15; Stop 03/06/17 at 11:18; Status DC Morphine Sulfate (Oramorph Sr) 15 mg Q12HR PO Last administered on 03/07/17 08 :35; Start 03/05/17 at 09:00 Non-Formulary Medication 200 mg HS PO ; Start 03/03/17 at 21:00; Stop at 21:00; Status DC Ondansetron HCl (Zofran Inj) 4 mg Q6H PRN IVP NAUSEA OR VOMITING Last administered on 03/07/17 08:34; Start 03/02/17 at 22:00 Pantoprazole Sodium (Protonix) 40 mg Q12HR PO Last administered on 03/07/17 08 :35; Start 03/03/17 at 09:30 Polyethylene Glycol/ Electrolytes (Colyte Liq) 4,000 ml ONCE ONCE PO Last administered on 03/03/17 16:03; Start 03/03/17 at 16:00; Stop 03/03/17 at 16 :01; Status DC Potassium Chloride (KCl) 40 meq ONCE ONCE PO Last administered on 03/05/17 06 :20; Start 03/05/17 at 05:45; Stop 03/05/17 at 05:46; Status DC Povidone Iodine (Betadine 5% Antisepsis Kit) 1 applic CONSTRUCTION STONEMASON PRN EACH NARE SEE LABEL COMMENTS; Start 03/03/17 at 11:15; Stop 03/06/17 at 11:18; Status DC Quetiapine Fumarate (SEROquel) 300 mg HS PO Last administered on 03/06/17 20: 44; Start 03/06/17 at 21:00 Senna/Docusate Sodium (Anahi-Colace) 1 tab BID PO Last administered on 09:05; Start 03/03/17 at 09:00; Stop 03/03/17 at 10:25; Status DC Sennosides (Senokot) 17.2 mg Q12H PRN PO Moderate constipation; Start at 22:00; Stop 03/03/17 at 10:25; Status DC Sodium Chloride 250 ml @ 0 mls/hr ONCE ONCE IV Last administered on 10:44; Start 03/04/17 at 10:45; Stop 03/04/17 at 10:46; Status DC Sodium Chloride (NS Flush) 2 ml BID IV FLUSH Last administered on 03/07/17 08: 35; Start 03/03/17 at 09:00 Trazodone HCl (Desyrel) 100 mg HS PO Last administered on 03/06/17 20:43; Start 03/03/17 at 00:00 Assessment and Plan Assessment and Plan abdominal pain persists now complicated by headache and temperature will consult neurology Adrien Griffin DO Mar 07, 2017 10:09
--- NOTE | 2017-03-07 12:51 | RADRPT ---
EXAM DATE/TIME: 03/07/2017 12:22 [facility] COMPARISON: CT BRAIN W/O CONTRAST, July 11, 2016, 9:27. INDICATIONS : Headache and fever. RADIATION DOSE: 43.65 CTDIvol (mGy) MEDICAL HISTORY : Hypertension. CAD, Afib Thyroid cancer SURGICAL HISTORY : Thyroidectomy. ENCOUNTER: Initial ACUITY: 1 day PAIN SCALE: 6/10 LOCATION: cranial TECHNIQUE: Multiple contiguous axial images were obtained of the head. Using automated exposure control and adj ustment of the mA and/or kV according to patient size, radiation dose was kept as low as reasonably a chievable to obtain optimal diagnostic quality images. DICOM format image data is available electro nically for review and comparison. FINDINGS: CEREBRUM: The ventricles are normal for age. No evidence of midline shift, mass lesion, hemorrhage or acute in farction. No extra-axial fluid collections are seen. POSTERIOR FOSSA: The cerebellum and brainstem are intact. The 4th ventricle is midline. The cerebellopontine angle i s unremarkable. EXTRACRANIAL: The visualized portion of the orbits is intact. SKULL: The calvaria is intact. No evidence of skull fracture. CONCLUSION: No acute intracranial disease. Anthony Muñiz MD on March 07, 2017 at 12:48 Board Certified Radiologist. This report was verified electronically.
[2017-03-07] MEDS: IBUPROFEN 800 MG TAB PO PRN (13:45)
--- NOTE | 2017-03-07 13:57 | PD.CONS ---
History of Present Illness Service Neurology Consult Requested By Dr. Griffin Reason for Consult headache Primary Care Physician Adrien Griffin, DO History of Present Illness 62 y/o female initially evaluated by the ER for GI symptoms (nausea, vomiting, diarrhea) has started having increased headaches in the last 4-5 days notes that frequency is now daily and constant tends to start at base of skull reports it is a pressure, no throbbing or shooting pain also notes pain in her neck with the headache no change in vision, though eyes occasionally hurt when she has the headache has nausea associated with the headache, no dizziness feels Fioricet is making the headache more tolerable has hx of headaches starting in the last 2 years but noted they tended to be frontal had been trying to get in to see a doctor about the headaches CT scan was completed today (Gianna Gong) Review of Systems All other ROS: ROS reviewed as documented in chart (Gianna Gong) Past Family Social History Allergies: Coded Allergies: codeine (Unverified Allergy, Severe, NAUSEA, 03/02/17) cyclobenzaprine (Unverified Allergy, Severe, 03/02/17) paroxetine (Unverified Allergy, Severe, 03/02/17) sulfamethoxazole (Unverified Allergy, Severe, 03/02/17) trimethoprim (Unverified Allergy, Severe, 03/02/17) Past Medical History HTN Arthritis Depression Anxiety Thyroid cancer GERD Back pain with implanted morphine pump Ulcers Migranes Past Surgical History Gastric resection thyroidectomy pain pump Active Ordered Medications Current Medications Medications (Trade) Dose Ordered Sig/Obdulia Route Start Time Stop Time Status Last Admin (NS Flush) 2 ml UNSCH PRN IV FLUSH 03/02/17 22:00 (NS Flush) 2 ml BID IV FLUSH 03/03/17 09:00 03/07/17 08:35 (Zofran Inj) 4 mg Q6H PRN IVP 03/02/17 22:00 03/07/17 08:34 (Reglan Inj) 5 mg Q6H PRN IV PUSH 03/02/17 22:00 03/06/17 13:02 (Dulcolax Supp) 10 mg DAILY PRN RECTAL 03/02/17 22:00 (Desyrel) 100 mg HS PO 03/03/17 00:00 03/06/17 20:43 (Protonix) 40 mg Q12HR PO 03/03/17 09:30 03/07/17 08:35 (Neurontin) 600 mg BID PO 03/03/17 21:00 03/07/17 08:35 (Synthroid) 200 mcg DAILY@0600 PO 03/04/17 06:00 03/07/17 05:26 (Norvasc) 10 mg DAILY PO 03/03/17 11:30 03/07/17 08:35 (Fioricet 325-50-40) 1 tab Q8H PRN PO 03/03/17 12:00 03/07/17 11:42 (Catapres) 0.1 mg Q6H PRN PO 03/04/17 11:30 03/06/17 00:01 (Oscal) 1,000 mg BID PO 03/05/17 09:00 03/07/17 08:35 (ZyrTEC) 10 mg Q12HR PO 03/05/17 09:00 03/07/17 08:35 (Oramorph Sr) 15 mg Q12HR PO 03/05/17 09:00 03/07/17 08:35 (Motrin) 800 mg TID PRN PO 03/06/17 05:45 03/06/17 20:49 (SEROquel) 300 mg HS PO 03/06/17 21:00 03/06/17 20:44 (KCl) 10 meq BID PO 03/07/17 21:00 Family History father- colon ca, Social History Denies ETOH and smoking history Lives with family Disabled (Gianna Gong) Exam I&O / VS Vital Signs Date Time Temp Pulse Resp B/P (MAP) Pulse Ox O2 Delivery O2 Flow Rate FiO2 03/07/17 13:22 83 03/07/17 10:01 98 03/07/17 08:00 99.1 92 16 169/79 (109) 93 03/07/17 06:15 91 03/07/17 04:00 99.5 104 20 150/95 (113) 93 03/07/17 02:10 98 03/07/17 00:00 98.0 78 18 130/85 (100) 93 03/06/17 20:45 97 03/06/17 20:00 99.7 98 18 143/75 (97) 96 03/06/17 16:57 111 03/06/17 16:41 100.2 99 20 136/96 (109) 94 General: Alert and Oriented, No acute distress Eye: PERRL, EOMI Respiratory: Non-labored respirations Cardiology: Normal rate Neurologic: Alert, Normal sensory, Normal motor, No focal defects, CN II-XII intact Psychiatric: Cooperative Exam Comments a&o x3, face symm, tender to palp jurgen temporal arteries, TTP to cspine and trap , muscle strength 5/5, sensation normal, eomi, no drift (Gianna Gong) Review/Management Diagnosis Last [address] 03/07/17 0000 Signed Impressions: Service Date/Time: Tuesday, March 07, 2017 12:22 - CONCLUSION: No acute intracranial disease. Anthony Muñiz MD Diagnosis/Plan: (1) Headache ICD Codes: R51 - Headache Status: Acute Plan: worsening headache in pt with hx of chronic headaches ct negative consider MRI - she reports pump is MRI compatible but pt declines MRI at this time due to claustrophobia + temporal artery tenderness bilaterally also neck pain will check ESR/CRP repeat CBC, CMP EEG consider CT spine consider increasing Gabapentin from 600mg bid to 600mg tid, or addition of muscle relaxer no change in mental status but neck pain ?LP noting some benefit with Fioricet prn (Gianna Gong) Daily Summary pt seen and examined. d/w PA. f/u esr/crp. start prednisone. follow exam. no meningeal signs (Karan Hardy MD) Problem Qualifiers (1) Headache: Qualified Codes: G44.52 - New daily persistent headache (ndph) Gianna Gong Mar 07, 2017 13:57 Karan Hardy MD Mar 07, 2017 15:15
[2017-03-07] MEDS: methylPREDNISolone SOD SUCC 125 MG/2 ML VIAL IV SCH ×2 (15:26→21:11)
[2017-03-07 17:16] LABS: AUTOMATED NEUTROPHIL # 2.8 TH/MM3 (1.8-7.7); BASOPHIL % 0.6 % (0.0-2.0); EOSINOPHIL # 0.1 TH/MM3 (0-0.4); EOSINOPHIL % 1.3 % (0.0-4.0); HEMATOCRIT 36.7 % (35.0-46.0); HEMO FLAGS DIFF FINAL; LYMPH % 42.5 % (9.0-44.0); LYMPHOCYTE # 2.8 TH/MM3 (1.0-4.8); MEAN CELL VOLUME 87.5 FL (80.0-100.0); MEAN CORPUSCULAR HEMOGLOBIN 28.3 PG (27.0-34.0); MEAN CORPUSCULAR HGB CONC 32.4 % (32.0-36.0); MONO % 12.7 % (0.0-8.0); NEUT % 42.9 % (16.0-70.0); PLATELET COUNT 194 TH/MM3 (150-450); RED CELL DISTRIBUTION WIDTH 16.8 % (11.6-17.2); WHITE BLOOD COUNT 6.6 TH/MM3 (4.0-11.0)
[2017-03-07 17:31] LABS: ANION GAP 8 MEQ/L (5-15); AST (GOT) 18 U/L (15-37); BICARBONATE 28.1 MEQ/L (21.0-32.0); BLOOD UREA NITROGEN 10 MG/DL (7-18); CHLORIDE 101 MEQ/L (98-107); GLOMERULAR FILTRATION RATE 39 ML/MIN (>89); SODIUM (NA) 137 MEQ/L (136-145)
[2017-03-07 17:35] LABS: ALKALINE PHOSPHATASE 84 U/L (45-117); ALT (GPT) 21 U/L (10-53); TOTAL BILIRUBIN ADULT 0.4 MG/DL (0.2-1.0)
[2017-03-07] MEDS: QUEtiapine FUMARATE 300 MG TAB PO SCH (21:10)
[2017-03-07] MEDS: POTASSIUM CHLORIDE 10 MEQ CAP PO SCH (21:10)
[2017-03-07] MEDS: traZODone HCL 100 MG TAB PO SCH (21:11)
[2017-03-08] VITALS (10 sets, daily range): BP systolic 123–145; BP diastolic 61–80; PULSE 71–102; RESP 18–20; TEMP 97–98.3; O2SAT 94–97
[2017-03-08] MEDS: ACETAMIN 325 MG/BUTALBITAL 50 MG/CAFFEINE 40 MG TAB PO PRN ×2 (02:07→10:06)
[2017-03-08] MEDS: LEVOTHYROXINE SODIUM 200 MCG TAB PO SCH (05:02)
[2017-03-08] MEDS: methylPREDNISolone SOD SUCC 125 MG/2 ML VIAL IV SCH (05:03)
[2017-03-08] MEDS: IBUPROFEN 800 MG TAB PO PRN (05:03)
--- NOTE | 2017-03-08 08:34 | HHI.PR ---
Review/Management Diagnosis Last [address] 03/07/17 0000 Signed Impressions: Service Date/Time: Tuesday, March 07, 2017 12:22 - CONCLUSION: No acute intracranial disease. Anthony Muñiz MD Diagnosis/Plan: (1) Headache ICD Codes: R51 - Headache Status: Acute Plan: worsening headache in pt with hx of chronic headaches; ? arthritis/spasm looks comfortable no fever x [address] cspine stop steroids. nml esr/crp d/w medical. will find out if she can get mri/mra done with her pump Subjective Subjective Comments No acute events reported occipital headache off/on x months No chest pain No dyspnea Active Medications Current Medications Medications (Trade) Dose Ordered Sig/Obdulia Route Start Time Stop Time Status Last Admin (NS Flush) 2 ml UNSCH PRN IV FLUSH 03/02/17 22:00 (NS Flush) 2 ml BID IV FLUSH 03/03/17 09:00 03/07/17 21:00 (Zofran Inj) 4 mg Q6H PRN IVP 03/02/17 22:00 03/07/17 08:34 (Reglan Inj) 5 mg Q6H PRN IV PUSH 03/02/17 22:00 03/06/17 13:02 (Dulcolax Supp) 10 mg DAILY PRN RECTAL 03/02/17 22:00 (Desyrel) 100 mg HS PO 03/03/17 00:00 03/07/17 21:11 (Protonix) 40 mg Q12HR PO 03/03/17 09:30 03/07/17 21:10 (Neurontin) 600 mg BID PO 03/03/17 21:00 03/07/17 21:11 (Synthroid) 200 mcg DAILY@0600 PO 03/04/17 06:00 03/08/17 05:02 (Norvasc) 10 mg DAILY PO 03/03/17 11:30 03/07/17 08:35 (Fioricet 325-50-40) 1 tab Q8H PRN PO 03/03/17 12:00 03/08/17 02:07 (Catapres) 0.1 mg Q6H PRN PO 03/04/17 11:30 03/06/17 00:01 (Oscal) 1,000 mg BID PO 03/05/17 09:00 03/07/17 08:35 (ZyrTEC) 10 mg Q12HR PO 03/05/17 09:00 03/07/17 21:11 (Oramorph Sr) 15 mg Q12HR PO 03/05/17 09:00 03/07/17 08:35 (Motrin) 800 mg TID PRN PO 03/06/17 05:45 03/08/17 05:03 (SEROquel) 300 mg HS PO 03/06/17 21:00 03/07/17 21:10 (KCl) 10 meq BID PO 03/07/17 21:00 03/07/17 21:10 (SoluMEDROL INJ) 250 mg Q6H IV 03/07/17 16:00 03/08/17 05:03 Allergies Allergies Coded Allergies codeine (Unverified Allergy, Severe, NAUSEA, 03/02/17) cyclobenzaprine (Unverified Allergy, Severe, 03/02/17) paroxetine (Unverified Allergy, Severe, 03/02/17) sulfamethoxazole (Unverified Allergy, Severe, 03/02/17) trimethoprim (Unverified Allergy, Severe, 03/02/17) Review of Systems All other ROS: ROS reviewed as documented in chart Exam I&O / VS Vital Signs Date Time Temp Pulse Resp B/P (MAP) Pulse Ox O2 Delivery O2 Flow Rate FiO2 03/08/17 04:00 97.0 83 18 123/75 (91) 97 03/08/17 00:42 85 03/08/17 00:00 97.5 71 20 145/61 (89) 95 03/07/17 22:17 87 03/07/17 20:00 98.1 85 22 163/77 (105) 96 03/07/17 17:57 86 03/07/17 16:00 98.5 87 16 112/57 (75) 95 03/07/17 13:22 83 03/07/17 12:00 98.4 93 16 114/83 (93) 93 03/07/17 10:01 98 General: Alert and Oriented, No acute distress Eye: PERRL, EOMI Respiratory: Non-labored respirations Cardiology: Normal rate Neurologic: Alert, Normal sensory, Normal motor, No focal defects, CN II-XII intact Psychiatric: Cooperative Exam Comments sitting up in bed, playing games on her cell phone, looks well, no synagogue tenderness, neck supple, eomi, face sym, ou 3-2mm, 5/5 all 4 ext Objective Micro and Labs Laboratory Tests Test 03/07/17 16:15 White Blood Count 6.6 Red Blood Count 4.20 Hemoglobin 11.9 Hematocrit 36.7 Mean Corpuscular Volume 87.5 Mean Corpuscular Hemoglobin 28.3 Mean Corpuscular Hemoglobin Concent 32.4 Red Cell Distribution Width 16.8 Platelet Count 194 Mean Platelet Volume 8.2 Neutrophils (%) (Auto) 42.9 Lymphocytes (%) (Auto) 42.5 Monocytes (%) (Auto) 12.7 Eosinophils (%) (Auto) 1.3 Basophils (%) (Auto) 0.6 Neutrophils # (Auto) 2.8 Lymphocytes # (Auto) 2.8 Monocytes # (Auto) 0.8 Eosinophils # (Auto) 0.1 Basophils # (Auto) 0.0 CBC Comment DIFF FINAL Differential Comment Erythrocyte Sedimentation Rate 23 Blood Urea Nitrogen 10 Creatinine 1.38 Random Glucose 94 Total Protein 8.2 Albumin 3.4 Calcium Level 7.8 Alkaline Phosphatase 84 Aspartate Amino Transf (AST/SGOT) 18 Alanine Aminotransferase (ALT/SGPT) 21 Total Bilirubin 0.4 Sodium Level 137 Potassium Level 3.0 Chloride Level 101 Carbon Dioxide Level 28.1 Anion Gap 8 Estimat Glomerular Filtration Rate 39 C-Reactive Protein LESS THAN 0.29 Date/Time Source Procedure Growth Status 03/03/17 21:00 Stool Stool Cryptosporidium Exam - Final NEGATIVE - NO CRYPTOSPORIDIUM ANTIGEN... Complete 03/03/17 21:00 Stool Stool Stool Pus (JOSE) - Final MODERATE WBC'S Complete 03/03/17 21:00 Stool Stool Giardia Antigen (JOSE) - Final NEGATIVE - NO GIARDIA ANTIGEN DETECTE... Complete Problem Qualifiers (1) Headache: Qualified Codes: G44.52 - New daily persistent headache (ndph) Karan Hardy MD Mar 08, 2017 08:34
[2017-03-08] MEDS: CALCIUM CARBONATE 1.25 GM (CA 500 MG) TAB PO SCH ×2 (08:39→20:07)
[2017-03-08] MEDS: PANTOPRAZOLE SOD 40 MG DELAYED RELEASE TAB PO SCH ×2 (08:39→20:07)
[2017-03-08] MEDS: GABAPENTIN 300 MG CAP PO SCH ×2 (08:39→20:07)
[2017-03-08] MEDS: CETIRIZINE HCL 10 MG TAB PO SCH ×2 (08:39→20:07)
[2017-03-08] MEDS: SODIUM CHLORIDE 0.9% FLUSH 10 ML FLUSH IV FLUSH SCH ×2 (08:39→20:07)
[2017-03-08] MEDS: POTASSIUM CHLORIDE 10 MEQ CAP PO SCH ×2 (08:39→20:07)
[2017-03-08] MEDS: MORPHINE SULFATE 15 MG CONTROLLED RELEASE TAB PO SCH ×2 (08:39→20:08)
[2017-03-08] MEDS: SODIUM CHLOR 0.9% 1000 ML INJ 1,000 ML IV SCH ×2 (10:30→22:20)
--- NOTE | 2017-03-08 10:40 | HHI.PR ---
Subjective Remarks Resting comfortably this morning. Minimal abdominal discomfort. Reports headache. Also reports strong smelling urine Objective Vital Signs Date Time Temp Pulse Resp B/P (MAP) Pulse Ox O2 Delivery O2 Flow Rate FiO2 03/08/17 08:29 97.6 81 18 140/80 (100) 94 03/08/17 04:00 97.0 83 18 123/75 (91) 97 03/08/17 00:42 85 03/08/17 00:00 97.5 71 20 145/61 (89) 95 03/07/17 22:17 87 03/07/17 20:00 98.1 85 22 163/77 (105) 96 03/07/17 17:57 86 03/07/17 16:00 98.5 87 16 112/57 (75) 95 03/07/17 13:22 83 03/07/17 12:00 98.4 93 16 114/83 (93) 93 I/O 03/07/17 03/07/17 03/07/17 03/08/17 03/08/17 03/08/17 07:00 15:00 23:00 07:00 15:00 23:00 Intake Total 720 ml Balance 720 ml Intake Oral 720 ml # Voids 5 5 8 1 # Bowel Movements 1 Result Diagram: 03/07/17 1615 03/07/17 1615 Procedures 04/03 EGD and colonscopy Objective Remarks GENERAL: alert and cooperative SKIN: Warm and dry. HEAD: Normocephalic. EYES: No scleral icterus. No injection or drainage. NECK: Supple, trachea midline. No JVD or lymphadenopathy. CARDIOVASCULAR: Regular rate and rhythm without murmurs, gallops, or rubs. RESPIRATORY: Breath sounds equal bilaterally. No accessory muscle use. GASTROINTESTINAL: Abdomen soft, non-tender, nondistended. MUSCULOSKELETAL: No cyanosis, or edema. BACK: Nontender without obvious deformity. No CVA tenderness. Medications and IVs Current Medications Medications (Trade) Dose Ordered Sig/Obdulia Route Start Time Stop Time Status Last Admin (NS Flush) 2 ml UNSCH PRN IV FLUSH 03/02/17 22:00 (NS Flush) 2 ml BID IV FLUSH 03/03/17 09:00 03/08/17 08:39 (Zofran Inj) 4 mg Q6H PRN IVP 03/02/17 22:00 03/07/17 08:34 (Reglan Inj) 5 mg Q6H PRN IV PUSH 03/02/17 22:00 03/06/17 13:02 (Dulcolax Supp) 10 mg DAILY PRN RECTAL 03/02/17 22:00 (Desyrel) 100 mg HS PO 03/03/17 00:00 03/07/17 21:11 (Protonix) 40 mg Q12HR PO 03/03/17 09:30 03/08/17 08:39 (Neurontin) 600 mg BID PO 03/03/17 21:00 03/08/17 08:39 (Synthroid) 200 mcg DAILY@0600 PO 03/04/17 06:00 03/08/17 05:02 (Norvasc) 10 mg DAILY PO 03/03/17 11:30 03/08/17 08:38 (Fioricet 325-50-40) 1 tab Q8H PRN PO 03/03/17 12:00 03/08/17 10:06 (Catapres) 0.1 mg Q6H PRN PO 03/04/17 11:30 03/06/17 00:01 (Oscal) 1,000 mg BID PO 03/05/17 09:00 03/08/17 08:39 (ZyrTEC) 10 mg Q12HR PO 03/05/17 09:00 03/08/17 08:39 (Oramorph Sr) 15 mg Q12HR PO 03/05/17 09:00 03/07/17 08:35 (Motrin) 800 mg TID PRN PO 03/06/17 05:45 03/08/17 05:03 (SEROquel) 300 mg HS PO 03/06/17 21:00 03/07/17 21:10 (KCl) 10 meq BID PO 03/07/17 21:00 03/08/17 08:39 Sodium Chloride 1,000 ml @ 75 mls/hr [id number] IV 03/08/17 09:00 Assessment and Plan Problem List: (1) Abdominal pain ICD Codes: R10.9 - Unspecified abdominal pain (2) Nausea & vomiting ICD Codes: R11.2 - Nausea with vomiting, unspecified (3) Nausea & vomiting ICD Codes: R11.2 - Nausea with vomiting, unspecified Status: Acute (4) Insomnia ICD Codes: G47.00 - Insomnia, unspecified Status: Acute (5) Hypertension ICD Codes: I10 - Essential (primary) hypertension Status: Chronic (6) Hypothyroidism ICD Codes: E03.9 - Hypothyroidism, unspecified Status: Acute (7) GERD (gastroesophageal reflux disease) ICD Codes: K21.9 - Gastro-esophageal reflux disease without esophagitis Status: Acute Assessment and Plan 03/03/17 Nausea and vomiting: GI consulted CT scan of abdomen and pelvis ordered. Plan for EGD and colonscopy in AM. Stool studies also ordered. Protonix BID. Zofran and reglan PRN Anemia: HGB 10.9 will continue to monitor. HTN: Elevated will add norvasc daily Hypothyroidism : replacement continued will check TSH level in AM GLORIA: Improving. On IVF Back pain: Continue gabapentin. Reports that she does not take methadone of Percocet which is on reconcile meds. Has implanted pain pump will monitor. Migraines: Will order Fioricet as needed. 03/04/17 Abominal discomfort: CT scan of abdomen and pelvis with no acute intraperitoneal or pelvic process to explain current clinical symptoms. Stable findings with significant diverticular disease involving the descending and sigmoid colon without diverticulitis, small paraesophageal hiatal hernia and benign small hepatic cysts. EGD and colonscopy today. Stool studies are pending. HTN: continues to be elevated. Norvasc added yesterday will add PRN clonidine. Hypokalemia: K 2.7 Replacement given. Recheck ordered. Anemia: HGB stable will continue to monitor. Hypocalcemia: Will order protein corrected calcium. Ca 7.7 03/05/17 Abdominal pain: denies any discomfort this morning. No nausea or vomiting. EGD and Colonscopy yesterday. Gastritis noted on EGD. Benefiber recommended and probiotics. HTN: continue Norvasc daily Hypokalemia: repeat K 3.4. 40 MEq given Hypocalcemia: Protein corrected calcium 7.7. Oscal ordered BID 03/08/17 Abdominal pain; minimal discomfort. GI has signed off Hypokalemia: Potassium level is pending for today Headache: Neurology consulted. Afebrile for last 24 hours. Neurology recommends MRI, MRA, MRV of brain. Also MRI of c spine. Called pain clinic to check if implanted pain pump is compatible. She instructed me that the picking tech will evaluated and most likley it is. Also will need to IPS come after MRI to check pump. Orders are placed. I and the MEDICAL TRANSCRIBER have both examined this patient and reviewed this note and I agree with these findings and plan of care. Adrien Griffin DO Discussed Condition With Nursing and neurology Discharge Planning Home with [facility] Kimberly Cruz Mar 08, 2017 10:40
[2017-03-08] MEDS ORDERED: LORazepam 2 MG/ML VIAL IV PUSH ONE (11:00)
[2017-03-08] MEDS ORDERED: GADOBENATE DIM PF 529 MG/ML 20ML VIAL (for RAD MRI) IV ONE (15:40)
--- NOTE | 2017-03-08 16:00 | RADRPT ---
EXAM DATE/TIME: 03/08/2017 15:02 [facility] COMPARISON: MRI BRAIN W & W/O CONTRAST, March 08, 2017, 15:02. INDICATIONS : Cephalgia. MEDICAL HISTORY : Carcinoma, thyroid. Hypertension. SURGICAL HISTORY : Thyroidectomy. Fusion, lumbar. ENCOUNTER: Initial ACUITY: 2 day PAIN SCORE: 5/10 LOCATION: head Please note a normal MRA of the brain does not entirely exclude the possibility of a small aneurysm, nor the possibility of distal intracranial vessel disease. TECHNIQUE: 3D time of flight MRA was performed. Source images, multiplanar STS MIP, and 3D volume MIP reconstru ctions were reviewed. FINDINGS: Anterior circulation: There is focal signal loss in the distal cervical internal carotid artery on the right. Distal intrac ranial internal carotid arteries are otherwise patent with flow extending to the middle and anterior cerebral arteries. There is no evidence for aneurysm, vessel truncation or stenosis, and no evidence for vascular malformation. Posterior circulation: Symmetric distal vertebral arteries with flow extending to basilar artery. Patent left P-comm. There is no evidence for aneurysm, vessel truncation or stenosis, and no evidence for vascular malformatio n. CONCLUSION: 1. Focal signal loss in the distal cervical internal carotid artery which is likely artifactual. Yates carlos, a focal flow-limiting lesion cannot be excluded. This can be further evaluated with CTA examinat ion if clinically warranted. 2. Otherwise, unremarkable MRA examination of the brain. Specifically, no evidence for aneurysm or la rge vessel occlusion. Leonides Ceja MD on March 08, 2017 at 15:49 Board Certified Radiologist. This report was verified electronically.
--- NOTE | 2017-03-08 16:39 | RADRPT ---
EXAM DATE/TIME: 03/08/2017 15:02 [facility] COMPARISON: MRV BRAIN W/WO CONTRAST, March 08, 2017, 15:02. INDICATIONS : Cephalgia. CONTRAST: 20 cc Multihance (gadobenate) IV MEDICAL HISTORY : Carcinoma, thyroid. Hypertension. SURGICAL HISTORY : Fusion, lumbar. Hysterectomy. Cholecystectomy. ENCOUNTER: Initial ACUITY: 2 day PAIN SCORE: 4/10 LOCATION: head TECHNIQUE: Multiplanar, multisequence MRI of the brain was performed both prior to and following the administrat ion of paramagnetic contrast. FINDINGS: There is mild motion artifact. CEREBRUM: The ventricles are normal for age. No evidence of midline shift, mass lesion, hemorrhage or acute in farction. No extraaxial fluid collections are seen. The pituitary gland and suprasellar cistern are normal in configuration. WHITE MATTER: There is mild periventricular and subcortical white matter signal change bilaterally in POSTERIOR FOSSA: The cerebellum and brainstem demonstrate no acute finding. The 4th ventricle is midline. The cerebel lopontine angle is unremarkable. The cerebellar tonsils are normal in position. DIFFUSION IMAGING: No focal areas of restricted diffusion are seen. No evidence of acute infarction. EXTRACRANIAL: Sinuses and orbits demonstrate no acute finding. POST-CONTRAST: No abnormal areas of parenchymal or dural enhancement. No evidence of blood-brain barrier breakdown. CONCLUSION: 1. No acute intracranial abnormality is identified. 2. There are mild chronic white matter changes characteristic of chronic microvascular ischemia. Bry Staples MD on March 08, 2017 at 16:33 Board Certified Radiologist. This report was verified electronically.
--- NOTE | 2017-03-08 17:06 | RADRPT ---
EXAM DATE/TIME: 03/08/2017 15:02 COMPARISON: No previous studies available for comparison. INDICATIONS : Cephalgia. CONTRAST: 20 cc Multihance (gadobenate) IV MEDICAL HISTORY : Carcinoma, thyroid. Hypertension. SURGICAL HISTORY : Cholecystectomy. Fusion, lumbar. Thyroidectomy. ENCOUNTER: Initial ACUITY: 2 day PAIN SCORE: 5/10 LOCATION: head FINDINGS: Focal filling defect in the right transverse sinus is most characteristic of an arachnoid granulation . Otherwise, dural sinuses are otherwise widely patent. CONCLUSION: 1. Focal filling defect in the right transverse sinus is characteristic of a normal arachnoid granula tion. 2. Dural sinuses are otherwise widely patent. Ketan Aguirre MD on March 08, 2017 at 16:35 Board Certified Radiologist. This report was verified electronically.
[2017-03-08] MEDS ORDERED: POTASSIUM CHLORIDE 10 MEQ CONTROLLED RELEASE TAB PO ONE (18:00)
[2017-03-08] MEDS: traZODone HCL 100 MG TAB PO SCH (20:07)
[2017-03-08] MEDS: QUEtiapine FUMARATE 300 MG TAB PO SCH (20:07)
[2017-03-08] MEDS: ONDANSETRON HCL 4 MG/2 ML VIAL IVP PRN (20:18)
--- NOTE | 2017-03-08 22:38 | RADRPT ---
EXAM DATE/TIME: 03/08/2017 22:02 [facility] COMPARISON: No previous studies available for comparison. INDICATIONS : Patient complains of neck pain. RADIATION DOSE: 22.78 CTDIvol (mGy) MEDICAL HISTORY : Carcinoma, thyroid. Cardiovascular disease Hypertension. SURGICAL HISTORY : Tonsillectomy. Thyroidectomy.Cholecystectomy. ENCOUNTER: Initial ACUITY: 1 day PAIN SCALE: 5/10 LOCATION: neck TECHNIQUE: Volumetric scanning of the cervical spine was performed. Multiplanar reconstructions in the sagittal, coronal and oblique axial planes were performed. Using automated exposure control and adjustment o f the mA and/or kV according to patient size, radiation dose was kept as low as reasonably achievable to obtain optimal diagnostic quality images. DICOM format image data is available electronically f or review and comparison. FINDINGS: VERTEBRAE: Normal vertebral body height. ALIGNMENT: No evidence of subluxation. C2-C3: The bony spinal canal is normal in size. No evidence of disc bulge or herniation. The neural forami na are bilaterally patent. C3-C4: The bony spinal canal is normal in size. No evidence of disc bulge or herniation. The neural forami na are bilaterally patent. C4-C5: The bony spinal canal is normal in size. No evidence of disc bulge or herniation. The neural forami na are bilaterally patent. C5-C6: Minimal spinal stenosis and mild to moderate bilateral foraminal narrowing is noted secondary to diff use disc osteophyte complex and uncovertebral joint spurring. C6-C7: Minimal spinal stenosis and mild left neural foraminal narrowing is noted secondary to diffuse disc o steophyte complex and uncovertebral joint spurring. C7-T1: The bony spinal canal is normal in size. No evidence of disc bulge or herniation. The neural forami na are bilaterally patent. CONCLUSION: 1. Minimal spinal stenoses at C5-6 and C6-7 with mild to moderate bilateral foraminal narrowing at C5 -6 and mild left neural foraminal narrowing at C6-7. 2. Mild cervical spondylosis at C5-6 and to a lesser extent C3-4 and C6-7. 3. No acute fracture or prevertebral soft tissue swelling. 4. Degenerative changes involving the C1 and C2 articulation. Nguyễn Alatorre MD on March 08, 2017 at 22:28 Board Certified Radiologist. This report was verified electronically.
[2017-03-09] VITALS (8 sets, daily range): BP systolic 122–148; BP diastolic 62–84; PULSE 85–99; RESP 17–18; TEMP 97.2–98.1; O2SAT 95–97
[2017-03-09] MEDS: LEVOTHYROXINE SODIUM 200 MCG TAB PO SCH (05:32)
--- NOTE | 2017-03-09 07:27 | MG ---
cc: JULIANA MEI MD Lab No: [id number]____ Date: 03/08/2017 Age: 62 Sex: F Race: ___ DATE OF [address] Gong INDICATIONS Daily constant headache, not feeling well, vomiting, history of thyroid cancer, thyroidectomy, chronic backache, anticoagulant therapy, atrial fibrillation, anxiety, depression, cardiac cath high cholesterol, chest pain, coronary artery disease, GERD, hypertension, COPD, falls, migraines, radiation therapy, sleep apnea, morphine pump left lower abdomen, head trauma, syncope and caffeine use. MEDICATIONS 1. Solu-Medrol 2. Motrin 3. Zyrtec 4. Catapres 5. Synthroid 6. Norvasc 7. Gabapentin 8. Protonix 9. Zofran DESCRIPTION The background activity is 8-9 Hz alpha located posteriorly bilateral and symmetrical with posterior anterior gradient. There is excessive movement and muscle artifact throughout the recording. Photic stimulation did not elicit a driving response. Hyperventilation was omitted. During the recording, there was drop out of the background activity, that was replaced by theta rhythm, with transition to stage II sleep. There were no electrographic seizures or epileptiform discharges. INTERPRETATION This is an awake, drowsy and asleep EEG. There were no electrographic seizures or epileptiform discharges during the recording. Clinical correlation is recommended. MD FRANCO Fitch/DJAly /8:42 PM /7:12 AM [facility] FACILITYCheyenne
[2017-03-09] MEDS ORDERED: LORazepam 2 MG/ML VIAL IV PUSH ONE (08:00)
[2017-03-09] MEDS: CETIRIZINE HCL 10 MG TAB PO SCH (08:13)
[2017-03-09] MEDS: CALCIUM CARBONATE 1.25 GM (CA 500 MG) TAB PO SCH (08:13)
[2017-03-09] MEDS: GABAPENTIN 300 MG CAP PO SCH (08:14)
[2017-03-09] MEDS: PANTOPRAZOLE SOD 40 MG DELAYED RELEASE TAB PO SCH (08:15)
[2017-03-09] MEDS: SODIUM CHLORIDE 0.9% FLUSH 10 ML FLUSH IV FLUSH SCH (08:15)
[2017-03-09] MEDS ORDERED: POTA10CA PO (08:15)
[2017-03-09] MEDS ORDERED: PANT40TA3 PO (08:15)
[2017-03-09] MEDS ORDERED: Acet-Butal-Caff 325-50-40 Mg PO (08:15)
[2017-03-09] MEDS: MORPHINE SULFATE 15 MG CONTROLLED RELEASE TAB PO SCH (08:15)
[2017-03-09] MEDS ORDERED: CETI10 PO (08:15)
[2017-03-09] MEDS ORDERED: ZOFR4TAB PO (08:15)
[2017-03-09] MEDS ORDERED: AMLO10 PO (08:15)
[2017-03-09] MEDS: POTASSIUM CHLORIDE 10 MEQ CAP PO SCH (08:16)
--- NOTE | 2017-03-09 08:16 | HHI.PR ---
Review/Management Diagnosis Last [address] 03/07/17 0000 Signed Impressions: Service Date/Time: Tuesday, March 07, 2017 12:22 - CONCLUSION: No acute intracranial disease. Anthony Muñiz MD Diagnosis/Plan: (1) Headache ICD Codes: R51 - Headache Status: Chronic Plan: worsening headache in pt with hx of chronic headaches; ? arthritis/spasm/ rebound nsaid do looks comfortable mri brain naicp cr elevated- likely dehydration- per medical recs f/u mri cspine avoid daily nsaids d/c planning today; outpatient f/u with her pain doctor Subjective Subjective Comments No acute events reported mild posterior neck pain eating/sleeping well No chest pain No dyspnea Active Medications Current Medications Medications (Trade) Dose Ordered Sig/Obdulia Route Start Time Stop Time Status Last Admin (NS Flush) 2 ml UNSCH PRN IV FLUSH 03/02/17 22:00 (NS Flush) 2 ml BID IV FLUSH 03/03/17 09:00 03/08/17 08:39 (Zofran Inj) 4 mg Q6H PRN IVP 03/02/17 22:00 03/08/17 20:18 (Reglan Inj) 5 mg Q6H PRN IV PUSH 03/02/17 22:00 03/06/17 13:02 (Dulcolax Supp) 10 mg DAILY PRN RECTAL 03/02/17 22:00 (Desyrel) 100 mg HS PO 03/03/17 00:00 03/08/17 20:07 (Protonix) 40 mg Q12HR PO 03/03/17 09:30 03/08/17 20:07 (Neurontin) 600 mg BID PO 03/03/17 21:00 03/08/17 20:07 (Synthroid) 200 mcg DAILY@0600 PO 03/04/17 06:00 03/09/17 05:32 (Norvasc) 10 mg DAILY PO 03/03/17 11:30 03/08/17 08:38 (Fioricet 325-50-40) 1 tab Q8H PRN PO 03/03/17 12:00 03/08/17 10:06 (Catapres) 0.1 mg Q6H PRN PO 03/04/17 11:30 03/06/17 00:01 (Oscal) 1,000 mg BID PO 03/05/17 09:00 03/08/17 20:07 (ZyrTEC) 10 mg Q12HR PO 03/05/17 09:00 03/08/17 20:07 (Oramorph Sr) 15 mg Q12HR PO 03/05/17 09:00 03/07/17 08:35 (Motrin) 800 mg TID PRN PO 03/06/17 05:45 03/08/17 05:03 (SEROquel) 300 mg HS PO 03/06/17 21:00 03/08/17 20:07 (KCl) 10 meq BID PO 03/07/17 21:00 03/08/17 20:07 Allergies Allergies Coded Allergies codeine (Unverified Allergy, Severe, NAUSEA, 03/02/17) cyclobenzaprine (Unverified Allergy, Severe, 03/02/17) paroxetine (Unverified Allergy, Severe, 03/02/17) sulfamethoxazole (Unverified Allergy, Severe, 03/02/17) trimethoprim (Unverified Allergy, Severe, 03/02/17) Review of Systems All other ROS: ROS reviewed as documented in chart Exam I&O / VS 03/09/17 03/09/17 03/10/17 15:00 23:00 07:00 # Voids 1 # Bowel Movements 1 Vital Signs Date Time Temp Pulse Resp B/P (MAP) Pulse Ox O2 Delivery O2 Flow Rate FiO2 03/09/17 07:59 98.1 92 18 124/69 (87) 95 03/09/17 05:23 97.2 85 18 148/84 (105) 95 03/09/17 05:00 85 03/09/17 00:32 97.2 92 18 122/68 (86) 95 03/09/17 00:30 90 03/08/17 20:30 102 03/08/17 20:05 97.9 102 18 124/61 (82) 96 03/08/17 16:24 98.2 102 18 143/70 (94) 96 03/08/17 12:30 79 03/08/17 12:01 98.3 95 18 131/78 (95) 94 03/08/17 08:29 97.6 81 18 140/80 (100) 94 General: Alert and Oriented, No acute distress Eye: PERRL, EOMI Respiratory: Non-labored respirations Cardiology: Normal rate Neurologic: Alert, Normal sensory, Normal motor, No focal defects, CN II-XII intact Psychiatric: Cooperative Exam Comments sitting up in bed, looks well, conversating without difficulty, no episcopalian tenderness, neck supple, eomi, face sym, 5/5 all 4 ext Objective Micro and Labs Laboratory Tests Test 03/08/17 11:39 Potassium Level 3.4 Date/Time Source Procedure Growth Status 03/03/17 21:00 Stool Stool Cryptosporidium Exam - Final NEGATIVE - NO CRYPTOSPORIDIUM ANTIGEN... Complete 03/03/17 21:00 Stool Stool Stool Pus (JOSE) - Final MODERATE WBC'S Complete 03/03/17 21:00 Stool Stool Giardia Antigen (JOSE) - Final NEGATIVE - NO GIARDIA ANTIGEN DETECTE... Complete Problem Qualifiers (1) Headache: Qualified Codes: G44.52 - New daily persistent headache (ndph) Karan Hardy MD Mar 09, 2017 08:16
[2017-03-09] MEDS: ONDANSETRON HCL 4 MG/2 ML VIAL IVP PRN (08:25)
[2017-03-09 09:58] LABS: BICARBONATE 25.5 MEQ/L (21.0-32.0); POTASSIUM 3.7 MEQ/L (3.5-5.1)
[2017-03-09] MEDS ORDERED: MORPHINE SULFATE IT ONE (10:30)
--- NOTE | 2017-03-09 11:35 | RADRPT ---
EXAM DATE/TIME: 03/09/2017 10:17 [facility] COMPARISON: No previous studies available for comparison. INDICATIONS : Pain. MEDICAL HISTORY : Hypertension. Carcinoma, thyroid. SURGICAL HISTORY : Thyroidectomy. Fusion, lumbar. ENCOUNTER: Initial ACUITY: 2 day PAIN SCORE: 3/10 LOCATION: neck TECHNIQUE: Multiplanar, multisequence MRI examination of the cervical spine was performed. FINDINGS: Sagittal images demonstrate normal vertebral body alignment and curvature. No focal areas of marrow r eplacement are identified. The craniocervical junction appears normal. The cord itself is normal in c aliber and signal intensity. Axial images were performed from C2-3 through C7-T1. There is multilevel disc space narrowing and marginal osteophyte formation maximal at C5-C6. C2-C3: No significant abnormalities identified. C3-C4: A small central protrusion is present impinging not significantly impinging on the thecal sac. There is no significant spinal canal stenosis. The neural foramina are clear bilaterally. C4-C5: A small central protrusion is present impinging not significantly impinging on the thecal sac. There is no significant spinal canal stenosis. The neural foramina are clear bilaterally. C5-C6: There is broad-based annular bulge of disc. There is mild neural foraminal narrowing on the left. The re is mild spinal canal stenosis. There is uncovertebral joint hypertrophy on left side. C6-C7: There is broad-based annular bulge of disc. There is mild spinal canal stenosis. There is mild left s ided neural foraminal narrowing. C7-T1: No significant abnormalities identified. CONCLUSION: 1. Degenerative disease with mild spinal canal stenosis at C5-C6 and C6-C7. Mild left-sided foraminal narrowing at these levels Taiwo Reid MD on March 09, 2017 at 11:24 Board Certified Radiologist. This report was verified electronically.
--- NOTE | 2017-03-09 12:08 | HHI.FF ---
Face to Face Verification Diagnosis: (1) GERD (gastroesophageal reflux disease) (2) Chronic back pain (3) Multiple polyps of sigmoid colon (4) Esophageal candidiasis (5) Hyperlipidemia (6) Hypertension Home Health Nursing Order: Medical education Signs/symptoms of disease process Medication education-adverse effect Nursing assessment with vital signs I have seen patient Tammy Manley on 03/09/17. My clinical findings support the need for the requested home health care services because: Ltd mobility - disease progression Deconditioned w/ increased weakness Need for psychosocial assistance Impaired cognition/judgement I certify that my clinical findings support that this patient is homebound because: Need for psychosocial assistance Kimberly Cruz Mar 09, 2017 12:08
--- NOTE | 2017-03-09 12:15 | HHI.DS ---
Discharge Summary Admission Date Mar 02, 2017 at 22:04 Discharge Date: Mar 09, 2017 Admitting Diagnosis Intractable vomiting, dehydration (1) Abdominal pain ICD Codes: R10.9 - Unspecified abdominal pain (2) Nausea & vomiting ICD Codes: R11.2 - Nausea with vomiting, unspecified Status: Acute (3) Headache ICD Codes: R51 - Headache Procedures 04/03 EGD and colonscopy Brief History This is a 62 year old female who presented to the emergency room for nausea, vomiting, and loose stools. She reports that her symptoms have been going on for the past week and just seems to be getting worse during that time. She was seen by her primary care physician twice and the last week with no relief in symptoms. She has a past medical history of HTN, back pain with implanted pain pump and chronic opiate use, Thyroid cancer, depression, anxiety, and COPD. CBC/BMP: 03/07/17 1615 03/09/17 0909 Significant Findings Laboratory Tests Test 03/07/17 16:15 03/08/17 11:39 03/09/17 09:09 Monocytes (%) (Auto) 12.7 % (0.0-8.0) Creatinine 1.38 MG/DL (0.50-1.00) Calcium Level 7.8 MG/DL (8.5-10.1) 8.3 MG/DL (8.5-10.1) Potassium Level 3.0 MEQ/L (3.5-5.1) 3.4 MEQ/L (3.5-5.1) Estimat Glomerular Filtration Rate 39 ML/MIN (>89) 57 ML/MIN (>89) Blood Urea Nitrogen 22 MG/DL (7-18) Random Glucose 118 MG/DL (74-106) Imaging Last 72 hours Impressions Cervical Spine MRI 03/09/17 0000 Signed Impressions: Service Date/Time: Thursday, March 09, 2017 10:17 - CONCLUSION: 1. Degenerative disease with mild spinal canal stenosis at C5-C6 and C6-C7. Mild left-sided foraminal narrowing at these levels Taiwo Reid MD Head/Brain Mag Res Venography 03/08/17 0000 Signed Impressions: Service Date/Time: Wednesday, March 08, 2017 15:02 - CONCLUSION: 1. Focal filling defect in the right transverse sinus is characteristic of a normal arachnoid granulation. 2. Dural sinuses are otherwise widely patent. Ketan Aguirre MD Head Magnetic Resonance Angiography 03/08/17 Signed Impressions: Service Date/Time: Wednesday, March 08, 2017 15:02 - CONCLUSION: 1. Focal signal loss in the distal cervical internal carotid artery which is likely artifactual. However, a focal flow-limiting lesion cannot be excluded. This can be further evaluated with CTA examination if clinically warranted. 2. Otherwise , unremarkable MRA examination of the brain. Specifically, no evidence for aneurysm or large vessel occlusion. Leonides Ceja MD Cervical Spine CT 03/08/17 Signed Impressions: Service Date/Time: Wednesday, March 08, 2017 22:02 - CONCLUSION: 1. Minimal spinal stenoses at C5-6 and C6-7 with mild to moderate bilateral foraminal narrowing at C5-6 and mild left neural foraminal narrowing at C6-7. 2. Mild cervical spondylosis at C5-6 and to a lesser extent C3-4 and C6-7. 3. No acute fracture or prevertebral soft tissue swelling. 4. Degenerative changes involving the C1 and C2 articulation. Nguyễn Alatorre MD Brain MRI 03/08/17 Signed Impressions: Service Date/Time: Wednesday, March 08, 2017 15:02 - CONCLUSION: 1. No acute intracranial abnormality is identified. 2. There are mild chronic white matter changes characteristic of chronic microvascular ischemia. Bry Staples MD Head CT 03/07/17 0000 Signed Impressions: Service Date/Time: Tuesday, March 07, 2017 12:22 - CONCLUSION: No acute intracranial disease. Anthony Muñiz MD PE at Discharge GENERAL: alert and cooperative SKIN: Warm and dry. HEAD: Normocephalic. EYES: No scleral icterus. No injection or drainage. NECK: Supple, trachea midline. No JVD or lymphadenopathy. CARDIOVASCULAR: Regular rate and rhythm without murmurs, gallops, or rubs. RESPIRATORY: Breath sounds equal bilaterally. No accessory muscle use. GASTROINTESTINAL: Abdomen soft, non-tender, nondistended. MUSCULOSKELETAL: No cyanosis, or edema. BACK: Nontender without obvious deformity. No CVA tenderness. Hospital Course This is a 62 year old female who presented to the emergency room for nausea, vomiting, and loose stools. She reports that her symptoms have been going on for the past week and just seems to be getting worse during that time. She was seen by her primary care physician twice and the last week with no relief in symptoms. She has a past medical history of HTN, back pain with implanted pain pump and chronic opiate use, Thyroid cancer, depression, anxiety, and COPD. During her hospital course she had a GI work up including a EGD and colonscopy. S/P EGD with dilatation, colonoscopy (03/04/17)---> 1. Gastritis antrum- biopsy esophagitis distal esophagsu-biopsy, duodenum normal-biopsy, retroflexion -s/p Nilay fundoplication stricture distal esophagus s/p dilatation -Savary 16 2. Retroflexed views revealed a hiatal hernia 1. The colonic mucosa appeared normal 2. Retroflexed views revealed internal hemorrhoids 3. Retroflexed views revealed small internal hemorrhoids 4. Revealed external hemorrhoids. Pathology following. Cryptosporidium/Giardia negative. Moderate WBC. CDiff negative. Symptoms improved. GI signed off and patient will follow up outpatient. Neurology was also consulted for headache and low grade temp. Temperature resolved. MRI, MRA , MRV, and MRI of C spine done. No acute findings noted. Patient is being discharged home with [facility] and instructed to follow up at office in 1 week. Pt Condition on Discharge: Fair Discharge Disposition: Disch w/ Home Health Serv Discharge Instructions DIET: Follow Instructions for: As Tolerated, No Restrictions Activities you can perform: Regular-No Restrictions Follow up Referrals: Appointment for Follow Up @ [facility] - 2 Weeks @ [facility] PCP Follow-up @ [facility] New Medications: Amlodipine (Norvasc) 10 Mg Tab 10 MG PO DAILY for Blood Pressure Management for 30 Days, #30 TAB Cetirizine (Cetirizine) 10 Mg Tab 10 MG PO Q12HR for Allergies for 30 Days, TAB Pantoprazole (Pantoprazole) 40 Mg Tab 40 MG PO Q12HR for Reflux for 30 Days, TAB Potassium Chloride ER (Potassium Chloride ER) 10 Meq Cap 10 MEQ PO BID for Electrolyte Replacement for 30 Days, #60 CAP [Idlo-Zxqfd-Kklk 325-50-40 Mg] () 1 TAB TAB 1 TAB PO Q8H PRN for headache for 10 Days Continued Medications: Aspirin DR (Aspir-81) 81 Mg Tabdr 1 TAB PO HS for Blood Clot Prevention Clonidine (Catapres) 0.1 Mg Tab 0.1 MG PO TID for Blood Pressure Management MDD 0.9 quantity for 30 Days, #90 TAB Gabapentin (Gabapentin) 300 Mg Cap 600 MG PO BID for Pain Management, #60 CAP 3 Refills Levothyroxine (Levothyroxine) 200 Mcg Tab 200 MCG PO DAILY for Thyroid, #30 TAB 0 Refills Methadone (Methadone) 10 Mg Tab 10 MG PO TID, TAB 0 Refills Ondansetron (Zofran) 4 Mg Tab 4 MG PO Q12HR PRN for NAUSEA OR VOMITING for 30 Days, TAB 0 Refills (This prescription has been renewed) Quetiapine (Seroquel) 300 Mg Tab 300 MG PO DAILY for Depression Control, #30 TAB 0 Refills Trazodone (Trazodone) 100 Mg Tablet 200 MG PO HS for Control Depression, #30 TAB 0 Refills Discontinued Medications: Cetirizine-Pseudoephedrine 12 HR (Cetirizine-Pseudoephedrine 12 HR) 5-120 Mg Tab 1 TAB PO HS for Allergies, TAB 0 Refills Oxycodone-Acetaminophen (Oxycodone-Acetaminophen) 10-325 mg Tab 1 TAB PO Q4H PRN for PAIN GREATER THAN 5 for 5 Days, #30 TAB Kimberly Cruz Mar 09, 2017 12:15
== END 2017-03-09 16:45 | disposition home health service (06) | DRG 392 ==
LOC: NEPC 18:46 → NEDA 21:46 → OBSVTOIN 22:04 → N05A 23:05
PROVIDERS: ADMIT Family Medicine; ATTEND Family Medicine
PROC: 0DB38ZX Excision of Lower Esophagus, Via Natural or Artificial Opening Endoscopic, Diagnostic (ICD-10-PCS; 2017-03-04)
PROC: 0D748ZZ Dilation of Esophagogastric Junction, Via Natural or Artificial Opening Endoscopic (ICD-10-PCS; 2017-03-04)
PROC: 0DBK8ZX Excision of Ascending Colon, Via Natural or Artificial Opening Endoscopic, Diagnostic (ICD-10-PCS; 2017-03-04)
PROC: 0DBM8ZX Excision of Descending Colon, Via Natural or Artificial Opening Endoscopic, Diagnostic (ICD-10-PCS; 2017-03-04)
PROC: 0DB98ZX Excision of Duodenum, Via Natural or Artificial Opening Endoscopic, Diagnostic (ICD-10-PCS; principal; 2017-03-04 13:15)
PROC: 0DB68ZX Excision of Stomach, Via Natural or Artificial Opening Endoscopic, Diagnostic (ICD-10-PCS; 2017-03-04 13:15)
DX: K29.70 Gastritis, unspecified, without bleeding (principal); N17.9 Acute kidney failure, unspecified; E83.51 Hypocalcemia; K22.2 Esophageal obstruction; K21.0 Gastro-esophageal reflux disease with esophagitis; I10 Essential (primary) hypertension; D64.9 Anemia, unspecified; G44.52 New daily persistent headache (NDPH); G43.909 Migraine, unspecified, not intractable, without status migrainosus; E89.0 Postprocedural hypothyroidism; E87.6 Hypokalemia; K44.9 Diaphragmatic hernia without obstruction or gangrene; K64.4 Residual hemorrhoidal skin tags; K64.8 Other hemorrhoids; K57.30 Diverticulosis of large intestine without perforation or abscess without bleeding; E86.0 Dehydration; J44.9 Chronic obstructive pulmonary disease, unspecified; G89.29 Other chronic pain; M54.9 Dorsalgia, unspecified; F41.9 Anxiety disorder, unspecified; F32.9 Major depressive disorder, single episode, unspecified; Z88.5 Allergy status to narcotic agent; Z88.2 Allergy status to sulfonamides; Z88.8 Allergy status to other drugs, medicaments and biological substances; Z85.850 Personal history of malignant neoplasm of thyroid; Z79.891 Long term (current) use of opiate analgesic
CPT/HCPCS: 62369; 70450; 70544; 70546; 70553; 71010; 72125; 72141; 74177; 76937; 80048; 80053; 81001; 82550; 83690; 83735; 83880; 84132; 84155; 84439; 84443; 84481; 84484; 85025; 85610; 85652; 85730; 86140; 87205; 87328; 87329; 87493; 87506; 88305; 88312; 93005; 95819; 96361; 96374; 96375; A9577; C1769; J2060; J2274; J2405; J2765; J2930; J3480; J7030; J7050; J7120; Q9963; Q9967

== ENCOUNTER 2017-03-11 11:16 | Emergency (ER) | payer MEDICARE, MEDICAID ==
[~2017-03-11] VITALS: Ht 167.6 cm; Wt 85.0 kg
[~2017-03-11 11:16] MED LIST changes: +AMLO10 PO; +Acet-Butal-Caff 325-50-40 Mg PO; +CETI10 PO; -CETI1TAB21 PO; -IBUP-232 PO; -OXYC1TAB36 PO; +PANT40TA3 PO; +POTA10CA PO
[2017-03-11 11:18] VITALS: BP 160/99; PULSE 115; RESP 30; TEMP 98.8; O2SAT 98
[2017-03-11] MEDS ORDERED: PANTOPRAZOLE SOD 40 MG DELAYED RELEASE TAB PO ONE (11:45)
[2017-03-11] MEDS ORDERED: ONDANSETRON HCL 4 MG/2 ML VIAL IVP ONE (11:45)
[2017-03-11] MEDS ORDERED: SODIUM CHLOR 0.9% 1000 ML INJ 1,000 ML IV ONE (11:45)
[2017-03-11] MEDS ORDERED: SODIUM CHLORIDE 0.9% FLUSH 10 ML FLUSH IV FLUSH PRN (11:45)
[2017-03-11] MEDS ORDERED: METOCLOPRAMIDE HCL 10 MG TAB PO ONE (12:00)
[2017-03-11 12:24] VITALS: O2SAT 98
--- NOTE | 2017-03-11 12:31 | PD ---
HPI Chief Complaint: Cold / Flu Symptoms Time Seen by Provider: 11:32 Travel History International Travel<30 days: No Contact w/Intl Traveler<30days: No Traveled to known affect area: No History of Present Illness HPI 62-year-old female presents to emergency department complaining of being "cold" , diarrhea, and nausea with vomiting for 2 days. Patient states that she was discharged from the hospital 2 days ago and started having symptoms that evening. Says that she had nonbloody diarrhea 5 times last night and has been unable to keep anything down despite the Zofran that she was discharged with. Patient also states that she has some abdominal pain that is diffuse and constant. Patient denies fever, chest pain, shortness of breath, leg pain. Says she has been compliant with her medication except this morning since she cannot keep anything down. PFSH Past Medical History Hx Anticoagulant Therapy: Yes Arthritis: Yes (HANDS) Asthma: No Atrial Fibrillation: Yes Autoimmune Disease: No Blood Disorders: No Anxiety: Yes Depression: Yes Heart Rhythm Problems: No Cancer: Yes (thyroid cancer) Cardiac Catheterization: Yes (20 % CLOGGED ) Cardiovascular Problems: Yes High Cholesterol: Yes Chemotherapy: No Chest Pain: No Congestive Heart Failure: No COPD: No Cerebrovascular Accident: No Coronary Artery Disease: Yes Diabetes: No Diminished Hearing: No Endocrine: Yes Gastrointestinal Disorders: Yes GERD: No Glaucoma: No Genitourinary: No Headaches: No Hepatitis: No Hiatal Hernia: No Hypertension: Yes Immune Disorder: No Implanted Vascular Access Dvce: Yes (MORPHINE PUMP) Kidney Stones: No Medical other: Yes (GERD, HX ULCERS ; ARTHRITIS) Musculoskeletal: Yes Neurologic: Yes Psychiatric: No Reproductive: No Respiratory: No Migraines: Yes Myocardial Infarction: No Radiation Therapy: No Renal Failure: No Seizures: No Sickle Cell Disease: No Sleep Apnea: No Thyroid Disease: Yes (thyroidectomy, from thyroid cancer) Ulcer: Yes PNEUMOCCOCAL Vaccine (Year): 2 ?: Not Menopausal: Yes Tubal Ligation: Yes Past Surgical History Abdominal Surgery: Yes ("STOMACH/ESOPHAGUS" sx) AICD: No Appendectomy: No Arteriovenous Shunt: No Body Medical Devices: morphine pain pump implanted in lower back Cardiac Surgery: No Cholecystectomy: Yes Coronary Artery Bypass Graft: No Ear Surgery: No Endocrine Surgery: No Eye Surgery: No Genitourinary Surgery: No Gynecologic Surgery: No Hysterectomy: Yes Insulin Pump: No Joint Replacement: No Neurologic Surgery: No Oral Surgery: No Pacemaker: No Thoracic Surgery: No Tonsillectomy: Yes Other Surgery: Yes (THYROIDECTOMY) Social History Alcohol Use: No Tobacco Use: No Substance Use: No Allergies-Medications (Allergen,Severity, Reaction): Coded Allergies: codeine (Unverified Allergy, Severe, NAUSEA, 03/11/17) cyclobenzaprine (Unverified Allergy, Severe, 03/11/17) paroxetine (Unverified Allergy, Severe, 03/11/17) sulfamethoxazole (Unverified Allergy, Severe, 03/11/17) trimethoprim (Unverified Allergy, Severe, 03/11/17) Reported Meds & Prescriptions Reported Meds & Active Scripts Active Reglan (Metoclopramide HCl) 10 Mg Tab 10 Mg PO QID 10 Days Norvasc (Amlodipine Besylate) 10 Mg Tab 10 Mg PO DAILY 30 Days Cetirizine (Cetirizine HCl) 10 Mg Tab 10 Mg PO Q12HR 30 Days Potassium Chloride ER (Potassium Chloride) 10 Meq Cap 10 Meq PO BID 30 Days Pantoprazole (Pantoprazole Sodium) 40 Mg Tab 40 Mg PO Q12HR 30 Days [Tvoj-Uvzkv-Fbgn 325-50-40 Mg] 1 TAB Tab 1 Tab PO Q8H PRN 10 Days Zofran (Ondansetron HCl) 4 Mg Tab 4 Mg PO Q12HR PRN 30 Days Catapres (Clonidine) 0.1 Mg Tab 0.1 Mg PO TID MDD 0.9 quantity 30 Days Gabapentin 300 Mg Cap 600 Mg PO BID Reported Methadone (Methadone HCl) 10 Mg Tab 10 Mg PO TID Trazodone (Trazodone HCl) 100 Mg Tablet 200 Mg PO HS Aspir-81 (Aspirin) 81 Mg Tabdr 1 Tab PO HS Levothyroxine (Levothyroxine Sodium) 200 Mcg Tab 200 Mcg PO DAILY Seroquel (Quetiapine Fumarate) 300 Mg Tab 300 Mg PO DAILY Review of Systems Except as stated in HPI: all other systems reviewed are Neg Physical Exam Narrative GENERAL: Well-developed well-nourished in mild distress SKIN: Focused skin assessment warm/dry. HEAD: Atraumatic. Normocephalic. EYES: Pupils equal and round. No scleral icterus. No injection or drainage. ENT: No nasal bleeding or discharge. Mucous membranes pink and moist. mildly dry mucus membranes NECK: Trachea midline. No JVD. No lymphadenopathy. CARDIOVASCULAR: Regular rate and rhythm. No murmur appreciated. RESPIRATORY: No accessory muscle use. Clear to auscultation. Breath sounds equal bilaterally. GASTROINTESTINAL: Voluntary versus involuntary guarding, diffusely tender without masses, normoactive bowel sounds MUSCULOSKELETAL: No obvious deformities. No clubbing. No cyanosis. No edema. Aida' sign negative bilaterally NEUROLOGICAL: Awake and alert. No obvious cranial nerve deficits. Motor grossly within normal limits. Normal speech. PSYCHIATRIC: Appropriate mood and affect; insight and judgment normal. Data Data Last Documented VS Vital Signs Date Time Temp Pulse Resp B/P (MAP) Pulse Ox O2 Delivery O2 Flow Rate FiO2 03/11/17 14:21 94 16 192/116 (141) 98 Room Air 03/11/17 11:18 98.8 Orders Orders Complete Blood Count With Diff (03/11/17 11:39) Comprehensive Metabolic Panel (03/11/17 11:39) Lipase (03/11/17 11:39) Lactic Acid (03/11/17 11:39) Prothrombin Time / Inr (Pt) (03/11/17 11:39) Act Partial Throm Time (Ptt) (03/11/17 11:39) Urinalysis - C+S If Indicated (03/11/17 11:39) Iv Access Insert/Monitor (03/11/17 11:39) Ecg Monitoring (03/11/17 11:39) Oximetry (03/11/17 11:39) Ondansetron Inj (Zofran Inj) (03/11/17 11:45) Sodium Chloride 0.9% Flush (Ns Flush) (03/11/17 11:45) C Diff Toxin Pcr (03/11/17 11:39) Stool Ova And Parasite Screen (03/11/17 11:39) Stool Wbc (Leukocytes) (03/11/17 11:39) Thyroid Stimulating Hormone (03/11/17 11:45) Pantoprazole (Protonix) (03/11/17 11:45) Sodium Chlor 0.9% 1000 Ml Inj (Ns 1000 M (03/11/17 11:45) Metoclopramide (Reglan) (03/11/17 12:00) Ed Discharge Order (03/11/17 13:56) Labs Laboratory Tests Test 03/11/17 12:20 03/11/17 13:45 White Blood Count 7.3 TH/MM3 Red Blood Count 4.48 MIL/MM3 Hemoglobin 12.9 GM/DL Hematocrit 38.6 % Mean Corpuscular Volume 86.1 FL Mean Corpuscular Hemoglobin 28.8 PG Mean Corpuscular Hemoglobin Concent 33.5 % Red Cell Distribution Width 16.7 % Platelet Count 222 TH/MM3 Mean Platelet Volume 8.6 FL Neutrophils (%) (Auto) 68.4 % Lymphocytes (%) (Auto) 21.0 % Monocytes (%) (Auto) 10.0 % Eosinophils (%) (Auto) 0.3 % Basophils (%) (Auto) 0.3 % Neutrophils # (Auto) 5.0 TH/MM3 Lymphocytes # (Auto) 1.5 TH/MM3 Monocytes # (Auto) 0.7 TH/MM3 Eosinophils # (Auto) 0.0 TH/MM3 Basophils # (Auto) 0.0 TH/MM3 CBC Comment DIFF FINAL Differential Comment Prothrombin Time 10.4 SEC Prothromb Time International Ratio 1.0 RATIO Activated Partial Thromboplast Time 22.6 SEC Urine Color YELLOW Urine Turbidity CLEAR Urine pH 8.0 Urine Specific [place] 1.010 Urine Protein NEG mg/dL Urine Glucose (UA) NEG mg/dL Urine Ketones NEG mg/dL Urine Occult Blood NEG Urine Nitrite NEG Urine Bilirubin NEG Urine Urobilinogen LESS THAN 2.0 MG/DL Urine Leukocyte Esterase MOD Urine RBC LESS THAN 1 /hpf Urine WBC 1 /hpf Urine Squamous Epithelial Cells 2 /hpf Urine Transitional Epithelial Cells <1 /hpf Urine Bacteria OCC /hpf Microscopic Urinalysis Comment CULT NOT INDICATED Blood Urea Nitrogen 14 MG/DL Creatinine 1.21 MG/DL Random Glucose 132 MG/DL Total Protein 8.8 GM/DL Albumin 3.5 GM/DL Calcium Level 8.9 MG/DL Alkaline Phosphatase 95 U/L Aspartate Amino Transf (AST/SGOT) 28 U/L Alanine Aminotransferase (ALT/SGPT) 27 U/L Total Bilirubin 0.6 MG/DL Sodium Level 137 MEQ/L Potassium Level 3.5 MEQ/L Chloride Level 104 MEQ/L Carbon Dioxide Level 24.4 MEQ/L Anion Gap 9 MEQ/L Estimat Glomerular Filtration Rate 45 ML/MIN Lactic Acid Level 1.3 mmol/L Lipase 116 U/L [facility] Medical Decision Making Medical Screen Exam Complete: Yes Emergency Medical Condition: Yes Differential Diagnosis Nonspecific diarrhea, C. difficile, diverticulitis, nonspecific abdominal pain, Narrative Course 62-year-old female presents to emergency department complaining of being "cold" , diarrhea, and nausea with vomiting for 2 days. Patient states that she was discharged from the hospital 2 days ago and started having symptoms that evening. Says that she had nonbloody diarrhea 5 times last night and has been unable to keep anything down despite the Zofran that she was discharged with. Patient also states that she has some abdominal pain that is diffuse and constant. Patient denies fever, chest pain, shortness of breath, leg pain. Says she has been compliant with her medication except this morning since she cannot keep anything down. Vital signs stable. Patient's respirations were slightly elevated upon arrival however they decreased after examination. Patient was anxious upon arrival. Physical exam- nontoxic appearing and anxious. Diffuse abdominal tenderness. Laboratory Tests Test 03/11/17 12:20 White Blood Count 7.3 TH/MM3 Red Blood Count 4.48 MIL/MM3 Hemoglobin 12.9 GM/DL Hematocrit 38.6 % Mean Corpuscular Volume 86.1 FL Mean Corpuscular Hemoglobin 28.8 PG Mean Corpuscular Hemoglobin Concent 33.5 % Red Cell Distribution Width 16.7 % Platelet Count 222 TH/MM3 Mean Platelet Volume 8.6 FL Neutrophils (%) (Auto) 68.4 % Lymphocytes (%) (Auto) 21.0 % Monocytes (%) (Auto) 10.0 % Eosinophils (%) (Auto) 0.3 % Basophils (%) (Auto) 0.3 % Neutrophils # (Auto) 5.0 TH/MM3 Lymphocytes # (Auto) 1.5 TH/MM3 Monocytes # (Auto) 0.7 TH/MM3 Eosinophils # (Auto) 0.0 TH/MM3 Basophils # (Auto) 0.0 TH/MM3 CBC Comment DIFF FINAL Differential Comment Prothrombin Time 10.4 SEC Prothromb Time International Ratio 1.0 RATIO Activated Partial Thromboplast Time 22.6 SEC Urine Color YELLOW Urine Turbidity CLEAR Urine pH 8.0 Urine Specific [place] 1.010 Urine Protein NEG mg/dL Urine Glucose (UA) NEG mg/dL Urine Ketones NEG mg/dL Urine Occult Blood NEG Urine Nitrite NEG Urine Bilirubin NEG Urine Urobilinogen LESS THAN 2.0 MG/DL Urine Leukocyte Esterase MOD Urine RBC LESS THAN 1 /hpf Urine WBC 1 /hpf Urine Squamous Epithelial Cells 2 /hpf Urine Transitional Epithelial Cells <1 /hpf Urine Bacteria OCC /hpf Microscopic Urinalysis Comment CULT NOT INDICATED Blood Urea Nitrogen 14 MG/DL Creatinine 1.21 MG/DL Random Glucose 132 MG/DL Total Protein 8.8 GM/DL Albumin 3.5 GM/DL Calcium Level 8.9 MG/DL Alkaline Phosphatase 95 U/L Aspartate Amino Transf (AST/SGOT) 28 U/L Alanine Aminotransferase (ALT/SGPT) 27 U/L Total Bilirubin 0.6 MG/DL Sodium Level 137 MEQ/L Potassium Level 3.5 MEQ/L Chloride Level 104 MEQ/L Carbon Dioxide Level 24.4 MEQ/L Anion Gap 9 MEQ/L Estimat Glomerular Filtration Rate 45 ML/MIN Lactic Acid Level 1.3 mmol/L Lipase 116 U/L Note: Patient was discharged from the hospital 2 days ago after a thorough workup to include multiple labs, stool tests, CT abd/pel, EGD, and colonoscopy. Pt was advised to use probiotics, PPIs as prescribed, and zofran for the nausea. After interviewing the patient again, pt states she was taking the protonix as prescribed but did not initially tell the nurse at intake. Because of the recent testing and evaluation, avoided a repeat abdomen and pelvis CT as her symptoms do not warrant imaging at this time. Zofran has been ineffective so used Reglan with remarkable improvement in symptoms. Pt was able to walk and ambulate normally while in the ED. she is ready to go home. Pt will be discharged with Reglan and strongly advised to follow up with her PCP STEVE. Pt agrees with plan and will comply. Diagnosis Primary Impression: Nausea & vomiting Qualified Codes: R11.2 - Nausea with vomiting, unspecified Referrals: Primary Care Physician Additional Instructions: Follow-up with primary care physician within 2-3 days. Increase your fluid intake and avoid sick contacts to avoid becoming sick. Do not use zofran and reglan together. Continue medications as previously prescribed. Scripts Metoclopramide (Reglan) 10 Mg Tab 10 MG PO QID for 10 Days, #30 TAB 0 Refills Prov: Vidhi Shah MD 03/11/17 Disposition: 01 DISCHARGE HOME Condition: Stable Alice Canales Mar 11, 2017 12:31
[2017-03-11 13:12] LABS: BASOPHIL % 0.3 % (0.0-2.0); EOSINOPHIL % 0.3 % (0.0-4.0); HEMATOCRIT 38.6 % (35.0-46.0); HEMO FLAGS DIFF FINAL; LYMPHOCYTE # 1.5 TH/MM3 (1.0-4.8); MEAN CELL VOLUME 86.1 FL (80.0-100.0); MEAN CORPUSCULAR HEMOGLOBIN 28.8 PG (27.0-34.0); MEAN CORPUSCULAR HGB CONC 33.5 % (32.0-36.0); NEUT % 68.4 % (16.0-70.0); PLATELET COUNT 222 TH/MM3 (150-450); RED BLOOD COUNT 4.48 MIL/MM3 (4.00-5.30); RED CELL DISTRIBUTION WIDTH 16.7 % (11.6-17.2); WHITE BLOOD COUNT 7.3 TH/MM3 (4.0-11.0)
[2017-03-11 13:19] LABS: APTT (PATIENT) 22.6 SEC (24.3-30.1); PROTHROMBIN TIME - PATIENT 10.4 SEC (9.8-11.6)
[2017-03-11 13:32] LABS: ALKALINE PHOSPHATASE 95 U/L (45-117); ALT (GPT) 27 U/L (10-53); TOTAL BILIRUBIN ADULT 0.6 MG/DL (0.2-1.0)
[2017-03-11 13:35] LABS: ANION GAP 9 MEQ/L (5-15); AST (GOT) 28 U/L (15-37); BICARBONATE 24.4 MEQ/L (21.0-32.0); BLOOD UREA NITROGEN 14 MG/DL (7-18); CHLORIDE 104 MEQ/L (98-107); GLOMERULAR FILTRATION RATE 45 ML/MIN (>89); SODIUM (NA) 137 MEQ/L (136-145)
[2017-03-11 13:37] LABS: BACTERIA, URINE OCC /hpf; BLOOD, URINE NEG (NEG); COMMENT (UR) CULT NOT INDICATED; CULTURE IF INDICATED CULT NOT INDICATED; GLUCOSE,URINE NEG (NEG); KETONE, URINE NEG (NEG); NITRITE,URINE NEG (NEG); SQUAMOUS EPITHELIAL CELL URINE 2 /hpf (0-5); TRANSITIONAL EPI CELLS, URINE <1 /hpf; URINE COLOR YELLOW (YELLW/STRAW)
[2017-03-11 13:38] LABS: POTASSIUM 3.5 MEQ/L (3.5-5.1)
[2017-03-11] MEDS ORDERED: REGL10TA5 PO (13:53)
[2017-03-11 14:21] VITALS: BP 192/116; PULSE 94; RESP 16; O2SAT 98
[2017-03-11 15:22] LABS: C. DIFF EPI 027 PRESUMPTIVE NEGATIVE (NEGATIVE)
[2017-03-11] MEDS ORDERED: LACTCAP8 PO (22:09)
[2017-03-11] MEDS ORDERED: METR-1 PO (22:09)
[2017-03-11] MEDS ORDERED: SUCR1S PO (22:10)
[2017-03-12] MEDS ORDERED: KLOR25PO2 PO (16:32)
== END 2017-03-11 14:41 | disposition home or self-care (01) ==
LOC: NEPE 11:16
DX: A04.72 Enterocolitis due to Clostridium difficile, not specified as recurrent (principal); R11.2 Nausea with vomiting, unspecified; R10.84 Generalized abdominal pain; I10 Essential (primary) hypertension; E07.9 Disorder of thyroid, unspecified; E78.00 Pure hypercholesterolemia, unspecified; Z87.39 Personal history of other diseases of the musculoskeletal system and connective tissue; Z86.79 Personal history of other diseases of the circulatory system; Z86.59 Personal history of other mental and behavioral disorders; Z85.850 Personal history of malignant neoplasm of thyroid; Z87.19 Personal history of other diseases of the digestive system; Z86.69 Personal history of other diseases of the nervous system and sense organs; Z79.01 Long term (current) use of anticoagulants
CPT/HCPCS: 80053; 81001; 83605; 83690; 84443; 85025; 85610; 85730; 87205; 87328; 87329; 87493; 99285; J7030

== ENCOUNTER 2017-03-11 18:37 | Emergency (ER) | payer MEDICAID, MEDICARE ==
[~2017-03-11 18:37] MED LIST changes: +REGL10TA5 PO
[2017-03-11 18:40] VITALS: BP 186/110; PULSE 105; RESP 16; TEMP 99.8; O2SAT 98
--- NOTE | 2017-03-11 20:27 | PD ---
HPI Chief Complaint: GI Complaint Time Seen by Provider: 20:15 Travel History International Travel<30 days: No Contact w/Intl Traveler<30days: No Traveled to known affect area: No History of Present Illness HPI Patient was recently in the hospital for EGD colonoscopy and sent home. She comes back earlier today abdominal pain. Then was sent home with Reglan for nausea. She was called back apparently by the lab. Because she had a positive C. difficile culture. It was a stools specimen sent today. Recent admission with colonscopy EGD and continues with pain and now diarrhea I look in the labs and she has positive C-diff. Pt reports excessive diarrhea and lower abdo pain.. t was on antibiotics in the hospital and had colonoscopy. the + cdiff assay was Stool culture was from today's earlier visit PFS Past Medical History Hx Anticoagulant Therapy: Yes Arthritis: Yes (HANDS) Asthma: No Atrial Fibrillation: Yes Autoimmune Disease: No Blood Disorders: No Anxiety: Yes Depression: Yes Heart Rhythm Problems: No Cancer: Yes (thyroid cancer) Cardiac Catheterization: Yes (20 % CLOGGED ) Cardiovascular Problems: Yes High Cholesterol: Yes Chemotherapy: No Chest Pain: No Congestive Heart Failure: No COPD: No Cerebrovascular Accident: No Coronary Artery Disease: Yes Diabetes: No Diminished Hearing: No Endocrine: Yes Gastrointestinal Disorders: Yes GERD: No Glaucoma: No Genitourinary: No Headaches: No Hepatitis: No Hiatal Hernia: No Hypertension: Yes Immune Disorder: No Implanted Vascular Access Dvce: Yes (MORPHINE PUMP) Kidney Stones: No Medical other: Yes (GERD, HX ULCERS ; ARTHRITIS) Musculoskeletal: Yes Neurologic: Yes Psychiatric: No Reproductive: No Respiratory: No Migraines: Yes Myocardial Infarction: No Radiation Therapy: No Renal Failure: No Seizures: No Sickle Cell Disease: No Sleep Apnea: No Thyroid Disease: Yes (thyroidectomy, from thyroid cancer) Ulcer: Yes PNEUMOCCOCAL Vaccine (Year): 2 Menopausal: Yes Tubal Ligation: Yes Past Surgical History Abdominal Surgery: Yes ("STOMACH/ESOPHAGUS" sx) AICD: No Appendectomy: No Arteriovenous Shunt: No Body Medical Devices: morphine pain pump implanted in lower back Cardiac Surgery: No Cholecystectomy: Yes Coronary Artery Bypass Graft: No Ear Surgery: No Endocrine Surgery: No Eye Surgery: No Genitourinary Surgery: No Gynecologic Surgery: No Hysterectomy: Yes Insulin Pump: No Joint Replacement: No Neurologic Surgery: No Oral Surgery: No Pacemaker: No Thoracic Surgery: No Tonsillectomy: Yes Other Surgery: Yes (THYROIDECTOMY) Social History Alcohol Use: No Tobacco Use: No Substance Use: No Allergies-Medications (Allergen,Severity, Reaction): Coded Allergies: cyclobenzaprine (Verified Allergy, Severe, hives, 03/12/17) paroxetine (Verified Allergy, Severe, rash, 03/12/17) sulfamethoxazole (Verified Allergy, Severe, rash, 03/12/17) trimethoprim (Verified Allergy, Intermediate, rash, 03/12/17) codeine (Verified Adverse Reaction, Severe, NAUSEA, 03/12/17) Reported Meds & Prescriptions Reported Meds & Active Scripts Active Klor-Con 25 (Potassium Chloride) 25 Meq Pow 40 Meq PO DAILY 5 Days Sucralfate Liq (Sucralfate) 1 Gram/10 Ml Tiffanie 1 Gm PO TID on empty stomach Probiotic (Lactobacillus Acidophilus) 10 Billion Cell Cap 1 Cap PO TIDAC Flagyl (Metronidazole) 500 Mg Tab 500 Mg PO TID Reglan (Metoclopramide HCl) 10 Mg Tab 10 Mg PO QID 10 Days Norvasc (Amlodipine Besylate) 10 Mg Tab 10 Mg PO DAILY 30 Days Cetirizine (Cetirizine HCl) 10 Mg Tab 10 Mg PO Q12HR 30 Days Potassium Chloride ER (Potassium Chloride) 10 Meq Cap 10 Meq PO BID 30 Days Pantoprazole (Pantoprazole Sodium) 40 Mg Tab 40 Mg PO Q12HR 30 Days [[id number]-Swvbo-Kdmu 325-50-40 Mg] 1 TAB Tab 1 Tab PO Q8H PRN 10 Days Zofran (Ondansetron HCl) 4 Mg Tab 4 Mg PO Q12HR PRN 30 Days Catapres (Clonidine) 0.1 Mg Tab 0.1 Mg PO TID MDD 0.9 quantity 30 Days Gabapentin 300 Mg Cap 600 Mg PO BID Reported Methadone (Methadone HCl) 10 Mg Tab 10 Mg PO TID Trazodone (Trazodone HCl) 100 Mg Tablet 200 Mg PO HS Aspir-81 (Aspirin) 81 Mg Tabdr 1 Tab PO HS Levothyroxine (Levothyroxine Sodium) 200 Mcg Tab 200 Mcg PO DAILY Seroquel (Quetiapine Fumarate) 300 Mg Tab 300 Mg PO DAILY Review of Systems Except as stated in HPI: all other systems reviewed are Neg Gastrointestinal: Positive: Diarrhea, Abdominal Pain Physical Exam Narrative GENERAL: Patient is awake alert nontoxic appearing she has little red bumps on her forearms SKIN: Warm and dry. Patient complaining of small tiny papules that do not itch she said they appeared in the last 30 minutes but some of them look like they' ve been scratched and appeared to be not acute HEAD: Atraumatic. Normocephalic. EYES: Pupils equal and round. No scleral icterus. No injection or drainage. ENT: No nasal bleeding or discharge. Mucous membranes pink and moist. NECK: Trachea midline. No JVD. CARDIOVASCULAR: Regular rate and rhythm. RESPIRATORY: No accessory muscle use. Clear to auscultation. Breath sounds equal bilaterally. GASTROINTESTINAL: Abdomen mild obesity NEUROLOGICAL: Awake and alert. No obvious cranial nerve deficits. Motor grossly within normal limits. Five out of 5 muscle strength in the arms and legs. Normal speech. PSYCHIATRIC: Appropriate mood and affect; insight and judgment normal. Data Data Last Documented VS Vital Signs Date Time Temp Pulse Resp B/P (MAP) Pulse Ox O2 Delivery O2 Flow Rate FiO2 03/11/17 22:19 03/11/17 18:40 99.8 105 16 98 Room Air Orders Orders Complete Blood Count With Diff (03/11/17 20:39) Comprehensive Metabolic Panel (03/11/17 20:39) Metronidazole (Flagyl) (03/11/17 20:45) Sucralfate Liq (Carafate Liq) (03/11/17 20:45) Ed Discharge Order (03/11/17 22:05) Labs Laboratory Tests Test 03/11/17 20:45 White Blood Count 9.5 TH/MM3 Red Blood Count 4.44 MIL/MM3 Hemoglobin 12.5 GM/DL Hematocrit 38.4 % Mean Corpuscular Volume 86.5 FL Mean Corpuscular Hemoglobin 28.2 PG Mean Corpuscular Hemoglobin Concent 32.5 % Red Cell Distribution Width 16.7 % Platelet Count 237 TH/MM3 Mean Platelet Volume 8.2 FL Neutrophils (%) (Auto) 70.5 % Lymphocytes (%) (Auto) 19.4 % Monocytes (%) (Auto) 9.7 % Eosinophils (%) (Auto) 0.2 % Basophils (%) (Auto) 0.2 % Neutrophils # (Auto) 6.7 TH/MM3 Lymphocytes # (Auto) 1.8 TH/MM3 Monocytes # (Auto) 0.9 TH/MM3 Eosinophils # (Auto) 0.0 TH/MM3 Basophils # (Auto) 0.0 TH/MM3 CBC Comment DIFF FINAL Differential Comment Blood Urea Nitrogen 14 MG/DL Creatinine 1.29 MG/DL Random Glucose 157 MG/DL Total Protein 8.8 GM/DL Albumin 3.7 GM/DL Calcium Level 8.4 MG/DL Alkaline Phosphatase 94 U/L Aspartate Amino Transf (AST/SGOT) 30 U/L Alanine Aminotransferase (ALT/SGPT) 34 U/L Total Bilirubin 0.5 MG/DL Sodium Level 138 MEQ/L Potassium Level 3.1 MEQ/L Chloride Level 104 MEQ/L Carbon Dioxide Level 26.3 MEQ/L Anion Gap 8 MEQ/L Estimat Glomerular Filtration Rate 42 ML/MIN MDM Medical Decision Making Medical Screen Exam Complete: Yes Emergency Medical Condition: Yes Differential Diagnosis Diarrhea viral versus infectious diarrhea versus C. difficile diarrhea Narrative Course Patient was called back in for a stool culture sent today that showed C. difficile antigen. She is having diarrhea but she has not needed to use the bathroom since she's been ER for 2 hours she is stable enough to send home with a trial of Flagyl by mouth 3 times a day 500 mg and follow-up with her outpatient doctor for repeat culture for the toxin assay I will give her 500 mg 3 times a day 2 weeks also I will give her probiotics as well as sucralfate for her stomach prophylaxis against GERD that could be caused by the Flagyl Diagnosis Primary Impression: C. difficile colitis Additional Impression: Colitis due to Clostridium difficile Patient Instructions: Clostridium Difficile Infection (ED), Colitis (ED), General Instructions Scripts Sucralfate Liq (Sucralfate Liq) 1 Gram/10 Ml Tiffanie 1 GM PO TID for Duodenal ulcer, #900 ML 0 Refills on empty stomach Prov: Blas Sesay MD 03/11/17 Lactobacillus Acidophilus (Probiotic) 10 Billion Cell Cap 1 CAP PO TIDAC for Nutritional Supplement, #90 CAP 0 Refills Prov: Blas Sesay MD 03/11/17 Metronidazole (Flagyl) 500 Mg Tab 500 MG PO TID for Infection, #42 TAB 0 Refills Prov: Blas Sesay MD 03/11/17 Disposition: 01 DISCHARGE HOME Condition: Good Blas Sesay MD Mar 11, 2017 20:27
[2017-03-11] MEDS ORDERED: SUCRALFATE 1 GM/10 ML CUP PO ONE (20:45)
[2017-03-11] MEDS ORDERED: metroNIDAZOLE 500 MG TAB PO ONE (20:45)
[2017-03-11 21:07] LABS: AUTOMATED NEUTROPHIL # 6.7 TH/MM3 (1.8-7.7); BASOPHIL % 0.2 % (0.0-2.0); EOSINOPHIL % 0.2 % (0.0-4.0); HEMATOCRIT 38.4 % (35.0-46.0); HEMO FLAGS DIFF FINAL; LYMPH % 19.4 % (9.0-44.0); LYMPHOCYTE # 1.8 TH/MM3 (1.0-4.8); MEAN CELL VOLUME 86.5 FL (80.0-100.0); MEAN CORPUSCULAR HEMOGLOBIN 28.2 PG (27.0-34.0); MEAN CORPUSCULAR HGB CONC 32.5 % (32.0-36.0); MONO % 9.7 % (0.0-8.0); NEUT % 70.5 % (16.0-70.0); PLATELET COUNT 237 TH/MM3 (150-450); RED BLOOD COUNT 4.44 MIL/MM3 (4.00-5.30); RED CELL DISTRIBUTION WIDTH 16.7 % (11.6-17.2); WHITE BLOOD COUNT 9.5 TH/MM3 (4.0-11.0)
[2017-03-11 21:21] LABS: ALT (GPT) 34 U/L (10-53)
[2017-03-11 21:24] LABS: ALKALINE PHOSPHATASE 94 U/L (45-117); TOTAL BILIRUBIN ADULT 0.5 MG/DL (0.2-1.0)
[2017-03-11 21:26] LABS: ANION GAP 8 MEQ/L (5-15); AST (GOT) 30 U/L (15-37); BICARBONATE 26.3 MEQ/L (21.0-32.0); BLOOD UREA NITROGEN 14 MG/DL (7-18); CHLORIDE 104 MEQ/L (98-107); GLOMERULAR FILTRATION RATE 42 ML/MIN (>89); POTASSIUM 3.1 MEQ/L (3.5-5.1); SODIUM (NA) 138 MEQ/L (136-145)
[2017-03-11] MEDS ORDERED: METR-1 PO (22:09)
[2017-03-11] MEDS ORDERED: LACTCAP8 PO (22:09)
[2017-03-11] MEDS ORDERED: SUCR1S PO (22:10)
[2017-03-12] MEDS ORDERED: KLOR25PO2 PO (16:32)
== END 2017-03-11 22:20 | disposition home or self-care (01) ==
LOC: NEPE 18:37
DX: A04.72 Enterocolitis due to Clostridium difficile, not specified as recurrent (principal); I10 Essential (primary) hypertension; E07.9 Disorder of thyroid, unspecified; E78.00 Pure hypercholesterolemia, unspecified; Z79.01 Long term (current) use of anticoagulants; Z87.39 Personal history of other diseases of the musculoskeletal system and connective tissue; Z86.79 Personal history of other diseases of the circulatory system; Z86.59 Personal history of other mental and behavioral disorders; Z85.850 Personal history of malignant neoplasm of thyroid; Z87.19 Personal history of other diseases of the digestive system; Z86.69 Personal history of other diseases of the nervous system and sense organs
CPT/HCPCS: 80053; 85025; 99284

== ENCOUNTER 2017-03-12 11:08 | Emergency (ER) | payer MEDICARE ==
[~2017-03-12] VITALS: Ht 167.6 cm; Wt 81.0 kg
[~2017-03-12 11:08] MED LIST changes: +LACTCAP8 PO; +METR-1 PO; +SUCR1S PO
[2017-03-12 11:14] VITALS: PULSE 94; RESP 17; TEMP 99.1; O2SAT 98
[2017-03-12 11:18] VITALS: BP 134/90; PULSE 106; PULSE 98; RESP 17; TEMP 99.1; O2SAT 98
[2017-03-12 11:25] VITALS: BP_SYST 134; BP_SYST 146; BP_DIAS 90; BP_DIAS 96; PULSE 96; RESP 17; O2SAT 98
[2017-03-12 11:26] VITALS: RESP 17; O2SAT 98
[2017-03-12] MEDS ORDERED: SODIUM CHLORIDE 0.9% FLUSH 10 ML FLUSH IVF PRN (11:30)
[2017-03-12] MEDS ORDERED: ALUMINUM/MAGNESIUM/SIMETH 30 ML CUP PO ONE (11:30)
[2017-03-12] MEDS ORDERED: SODIUM CHLORID 0.9% 500 ML INJ 500 ML IV ONE (11:30)
[2017-03-12] MEDS ORDERED: metroNIDAZOLE 500 MG INJ 100 ML IV ONE (11:30)
[2017-03-12] MEDS ORDERED: PANTOPRAZOLE SODIUM 40 MG VIAL IV PUSH ONE (11:30)
--- NOTE | 2017-03-12 11:30 | PD ---
HPI Chief Complaint: Chest Pain Time Seen by Provider: 11:18 (Alice Canales) Time Seen by Provider: 11:18 (Mercedes Alas MD) Travel History International Travel<30 days: No Contact w/Intl Traveler<30days: No Traveled to known affect area: No (Alice Canales) History of Present Illness HPI 62-year-old female presents to emergency department with chest pressure that started about 1-1/2 hours ago while laying down. Patient states that nothing makes her pain better or worse and is constant, nonradiating. Patient states that she does not remember having a cardiac history but did have a stress test a couple months ago that was normal. Patient denies shortness of breath. She has had nausea, vomiting, and diarrhea for the last week or so. For which she was fully evaluated in the hospital with an EGD and colonoscopy. On the way to the hospital, patient received 4 baby aspirin, and 2 nitroglycerin, and 4 mg Zofran with mild symptom improvement. Patient has been unable take any of her medications today because of nausea. She also states that Dr. Walker advised her to go to the hospital for admission for evaluation of her symptoms. Patient has a pain pump continues to have issues with this. She notified me that her pain management lead customer service representative will be coming in to evaluate her pain pump. (Alice Canales) PFSH Past Medical History Hx Anticoagulant Therapy: Yes Arthritis: Yes (HANDS) Asthma: No Atrial Fibrillation: Yes Autoimmune Disease: No Blood Disorders: No Anxiety: Yes Depression: Yes Heart Rhythm Problems: No Cancer: Yes (thyroid cancer) Cardiac Catheterization: Yes (20 % CLOGGED ) Cardiovascular Problems: Yes High Cholesterol: Yes Chemotherapy: No Chest Pain: No Congestive Heart Failure: No COPD: No Cerebrovascular Accident: No Coronary Artery Disease: Yes Diabetes: No Diminished Hearing: No Endocrine: Yes Gastrointestinal Disorders: Yes GERD: No Glaucoma: No Genitourinary: No Headaches: No Hepatitis: No Hiatal Hernia: No Hypertension: Yes Immune Disorder: No Implanted Vascular Access Dvce: Yes (MORPHINE PUMP) Kidney Stones: No Musculoskeletal: Yes Neurologic: Yes Psychiatric: No Reproductive: No Respiratory: No Migraines: Yes Myocardial Infarction: No Radiation Therapy: No Renal Failure: No Seizures: No Sickle Cell Disease: No Sleep Apnea: No Thyroid Disease: Yes (thyroidectomy, from thyroid cancer) Ulcer: Yes PNEUMOCCOCAL Vaccine (Year): 2 ?: Not Menopausal: Yes Tubal Ligation: Yes (Alice Canales) Past Surgical History Abdominal Surgery: Yes ("STOMACH/ESOPHAGUS" sx) AICD: No Appendectomy: No Arteriovenous Shunt: No Body Medical Devices: morphine pain pump implanted in lower back Cardiac Surgery: No Cholecystectomy: Yes Coronary Artery Bypass Graft: No Ear Surgery: No Endocrine Surgery: No Eye Surgery: No Genitourinary Surgery: No Gynecologic Surgery: No Hysterectomy: Yes Insulin Pump: No Joint Replacement: No Neurologic Surgery: No Oral Surgery: No Pacemaker: No Thoracic Surgery: No Tonsillectomy: Yes Other Surgery: Yes (THYROIDECTOMY) (Alice Canales) Social History Alcohol Use: No Tobacco Use: No Substance Use: No (Alice Canales) Allergies-Medications (Allergen,Severity, Reaction): Coded Allergies: cyclobenzaprine (Verified Allergy, Severe, hives, 03/12/17) paroxetine (Verified Allergy, Severe, rash, 03/12/17) sulfamethoxazole (Verified Allergy, Severe, rash, 03/12/17) trimethoprim (Verified Allergy, Intermediate, rash, 03/12/17) codeine (Verified Adverse Reaction, Severe, NAUSEA, 03/12/17) Reported Meds & Prescriptions Reported Meds & Active Scripts Active Klor-Con 25 (Potassium Chloride) 25 Meq Pow 40 Meq PO DAILY 5 Days Sucralfate Liq (Sucralfate) 1 Gram/10 Ml Tiffanie 1 Gm PO TID on empty stomach Probiotic (Lactobacillus Acidophilus) 10 Billion Cell Cap 1 Cap PO TIDAC Flagyl (Metronidazole) 500 Mg Tab 500 Mg PO TID Reglan (Metoclopramide HCl) 10 Mg Tab 10 Mg PO QID 10 Days Norvasc (Amlodipine Besylate) 10 Mg Tab 10 Mg PO DAILY 30 Days Cetirizine (Cetirizine HCl) 10 Mg Tab 10 Mg PO Q12HR 30 Days Potassium Chloride ER (Potassium Chloride) 10 Meq Cap 10 Meq PO BID 30 Days Pantoprazole (Pantoprazole Sodium) 40 Mg Tab 40 Mg PO Q12HR 30 Days [Iiru-Cuuov-Ctdr 325-50-40 Mg] 1 TAB Tab 1 Tab PO Q8H PRN 10 Days Zofran (Ondansetron HCl) 4 Mg Tab 4 Mg PO Q12HR PRN 30 Days Catapres (Clonidine) 0.1 Mg Tab 0.1 Mg PO TID MDD 0.9 quantity 30 Days Gabapentin 300 Mg Cap 600 Mg PO BID Reported Methadone (Methadone HCl) 10 Mg Tab 10 Mg PO TID Trazodone (Trazodone HCl) 100 Mg Tablet 200 Mg PO HS Aspir-81 (Aspirin) 81 Mg Tabdr 1 Tab PO HS Levothyroxine (Levothyroxine Sodium) 200 Mcg Tab 200 Mcg PO DAILY Seroquel (Quetiapine Fumarate) 300 Mg Tab 300 Mg PO DAILY (Mercedes Alas MD) Review of Systems Except as stated in HPI: all other systems reviewed are Neg (Alice Canales) Physical Exam Narrative GENERAL: Well-developed well-nourished in mild distress SKIN: Focused skin assessment warm/dry. HEAD: Atraumatic. Normocephalic. EYES: Pupils equal and round. No scleral icterus. No injection or drainage. ENT: No nasal bleeding or discharge. Mucous membranes pink and moist. NECK: Trachea midline. No JVD. No lymphadenopathy CARDIOVASCULAR: Regular rate and rhythm. No murmur appreciated. RESPIRATORY: No accessory muscle use. Clear to auscultation. Breath sounds equal bilaterally. GASTROINTESTINAL: Abdomen soft, mildly tender nondistended without organomegaly MUSCULOSKELETAL: No obvious deformities. No clubbing. No cyanosis. No edema. NEUROLOGICAL: Awake and alert. No obvious cranial nerve deficits. Motor grossly within normal limits. Normal speech. PSYCHIATRIC: Appropriate mood and affect; insight and judgment normal. (Alice Canales) Data Data Orders Orders Electrocardiogram (03/12/17 11:18) Ckmb (Isoenzyme) Profile (03/12/17 11:18) Complete Blood Count With Diff (03/12/17 11:18) Comprehensive Metabolic Panel (03/12/17 11:18) Magnesium (Mg) (03/12/17 11:18) Prothrombin Time / Inr (Pt) (03/12/17 11:18) Act Partial Throm Time (Ptt) (03/12/17 11:18) Troponin I (03/12/17 11:18) Lipase (03/12/17 11:18) Chest, Single Ap (03/12/17 11:18) Ecg Monitoring (03/12/17 11:18) Bilateral Bp Monitoring (03/12/17 11:18) Iv Access Insert/Monitor (03/12/17 11:18) Oximetry (03/12/17 11:18) Oxygen Administration (03/12/17 11:18) Sodium Chloride 0.9% Flush (Ns Flush) (03/12/17 11:30) Sodium Chlorid 0.9% 500 Ml Inj (Ns 500 M (03/12/17 11:30) Al-Mag Hy-Si 40-40-4 Mg/Ml Liq (Mag-Al P (03/12/17 11:30) Pantoprazole Inj (Protonix Inj) (03/12/17 11:30) Metronidazole 500 Mg Inj (Flagyl 500 Mg (03/12/17 11:30) Troponin I (03/12/17 14:30) Potassium Chloride (Kcl) (03/12/17 13:00) Ed Discharge Order (03/12/17 16:48) (Mercedes Alas MD) Labs Laboratory Tests Test 03/12/17 11:32 03/12/17 14:30 White Blood Count 6.9 TH/MM3 Red Blood Count 4.05 MIL/MM3 Hemoglobin 11.7 GM/DL Hematocrit 35.0 % Mean Corpuscular Volume 86.4 FL Mean Corpuscular Hemoglobin 29.0 PG Mean Corpuscular Hemoglobin Concent 33.5 % Red Cell Distribution Width 16.7 % Platelet Count 206 TH/MM3 Mean Platelet Volume 8.2 FL Neutrophils (%) (Auto) 63.5 % Lymphocytes (%) (Auto) 24.9 % Monocytes (%) (Auto) 10.7 % Eosinophils (%) (Auto) 0.5 % Basophils (%) (Auto) 0.4 % Neutrophils # (Auto) 4.4 TH/MM3 Lymphocytes # (Auto) 1.7 TH/MM3 Monocytes # (Auto) 0.7 TH/MM3 Eosinophils # (Auto) 0.0 TH/MM3 Basophils # (Auto) 0.0 TH/MM3 CBC Comment DIFF FINAL Differential Comment Prothrombin Time 11.3 SEC Prothromb Time International Ratio 1.1 RATIO Activated Partial Thromboplast Time 21.1 SEC Blood Urea Nitrogen 11 MG/DL Creatinine 1.12 MG/DL Random Glucose 141 MG/DL Total Protein 7.7 GM/DL Albumin 3.5 GM/DL Calcium Level 8.3 MG/DL Magnesium Level 1.9 MG/DL Alkaline Phosphatase 83 U/L Aspartate Amino Transf (AST/SGOT) 18 U/L Alanine Aminotransferase (ALT/SGPT) 30 U/L Total Bilirubin 0.5 MG/DL Sodium Level 142 MEQ/L Potassium Level 3.0 MEQ/L Chloride Level 108 MEQ/L Carbon Dioxide Level 25.0 MEQ/L Anion Gap 9 MEQ/L Estimat Glomerular Filtration Rate 49 ML/MIN Total Creatine Kinase 86 U/L Troponin I LESS THAN 0.02 NG/ML LESS THAN 0.02 NG/ML Lipase 100 U/L (Mercedes Alas MD) [facility] Medical Decision Making Medical Screen Exam Complete: Yes Emergency Medical Condition: Yes Differential Diagnosis Atypical chest pain, STEMI, and STEMI, angina, esophagitis, diffuse esophageal spasms, Narrative Course 62-year-old female presents to emergency department with chest pressure that started about 1-1/2 hours ago while laying down. Patient states that nothing makes her pain better or worse and is constant, nonradiating. Patient states that she does not remember having a cardiac history but did have a stress test a couple months ago that was normal. Patient denies shortness of breath. She has had nausea, vomiting, and diarrhea for the last week or so. For which she was fully evaluated in the hospital with an EGD and colonoscopy. On the way to the hospital, patient received 4 baby aspirin, and 2 nitroglycerin, and 4 mg Zofran with mild symptom improvement. Patient has been unable take any of her medications today because of nausea. She also states that Dr. Walker advised her to go to the hospital for admission for evaluation of her symptoms. Patient has a pain pump continues to have issues with this. She notified me that her pain management lead customer service representative will be coming in to evaluate her pain pump. Protonix and Flagyl administered emergency department. GI cocktail administered for symptom relief. Fluid challenge. Laboratory Tests Test 03/12/17 11:32 03/12/17 14:30 White Blood Count 6.9 TH/MM3 Red Blood Count 4.05 MIL/MM3 Hemoglobin 11.7 GM/DL Hematocrit 35.0 % Mean Corpuscular Volume 86.4 FL Mean Corpuscular Hemoglobin 29.0 PG Mean Corpuscular Hemoglobin Concent 33.5 % Red Cell Distribution Width 16.7 % Platelet Count 206 TH/MM3 Mean Platelet Volume 8.2 FL Neutrophils (%) (Auto) 63.5 % Lymphocytes (%) (Auto) 24.9 % Monocytes (%) (Auto) 10.7 % Eosinophils (%) (Auto) 0.5 % Basophils (%) (Auto) 0.4 % Neutrophils # (Auto) 4.4 TH/MM3 Lymphocytes # (Auto) 1.7 TH/MM3 Monocytes # (Auto) 0.7 TH/MM3 Eosinophils # (Auto) 0.0 TH/MM3 Basophils # (Auto) 0.0 TH/MM3 CBC Comment DIFF FINAL Differential Comment Prothrombin Time 11.3 SEC Prothromb Time International Ratio 1.1 RATIO Activated Partial Thromboplast Time 21.1 SEC Blood Urea Nitrogen 11 MG/DL Creatinine 1.12 MG/DL Random Glucose 141 MG/DL Total Protein 7.7 GM/DL Albumin 3.5 GM/DL Calcium Level 8.3 MG/DL Magnesium Level 1.9 MG/DL Alkaline Phosphatase 83 U/L Aspartate Amino Transf (AST/SGOT) 18 U/L Alanine Aminotransferase (ALT/SGPT) 30 U/L Total Bilirubin 0.5 MG/DL Sodium Level 142 MEQ/L Potassium Level 3.0 MEQ/L Chloride Level 108 MEQ/L Carbon Dioxide Level 25.0 MEQ/L Anion Gap 9 MEQ/L Estimat Glomerular Filtration Rate 49 ML/MIN Total Creatine Kinase 86 U/L Lipase 100 U/L Troponin I LESS THAN 0.02 NG/ML Last 24 hours Impressions Chest X-Ray 03/12/17 1118 Signed Impressions: Service Date/Time: Sunday, March 12, 2017 11:46 - CONCLUSION: No acute disease. Anthony Muñiz MD Patient has been seen 3 times within the last 2 days at this hospital. Upon discharge the patient was feeling better. I asked her what changed and patient does not know. While was in the room evaluating the patient her pain management doctor called and asked why she was in the hospital. Patient stated that she was in the emergency department again for C. difficile. I determined the patient's and that she was also here for chest pain. I spoke with my attending, Dr. Alas regarding this patient. We contacted case management for potential placement. I discussed this with the patient and she agreed to this. [id number] I discussed this case with case management and and she is not sure that she will meet criteria for intermediate facility for rehabilitation. Dr. Alas and I discussed this case again and she suggested we discuss this patient with Dr. Walker her primary care physician. C Dr. Alas's note regarding this conversation. Patient is to follow-up in the office Wednesday, ensure adequate fluid intake, and take medications as prescribed. PO potassium for her symptoms for 5 days secondary to diarrhea. Patient has Zofran and Reglan at home for her nausea, vomiting, and diarrhea. The patient strongly advised follow-up with her primary care physician. (Alice Canales) Physician Communication Physician Communication Dr. Alas spoke with Dr. Bowles office regarding this patient. Please see her note regarding the conversation. (Alice Canales) Diagnosis Primary Impression: Hypokalemia Additional Impressions: Clostridium difficile diarrhea Atypical chest pain Referrals: Primary Care Physician Additional Instructions: Follow-up with primary care physician within 2-3 days. Ensure adequate fluid intake to ensure proper hydration Take medications as prescribed. Scripts Potassium Chloride (Klor-Con 25) 25 Meq Pow 40 MEQ PO DAILY for 5 Days, #5 Prov: Mercedes Alas MD 03/12/17 Disposition: 01 DISCHARGE HOME Condition: Stable Alice Canales Mar 12, 2017 11:30 Mercedes Alas MD Mar 28, 2017 06:44
[2017-03-12 11:50] LABS: AUTOMATED NEUTROPHIL # 4.4 TH/MM3 (1.8-7.7); BASOPHIL % 0.4 % (0.0-2.0); EOSINOPHIL % 0.5 % (0.0-4.0); HEMO FLAGS DIFF FINAL; LYMPH % 24.9 % (9.0-44.0); LYMPHOCYTE # 1.7 TH/MM3 (1.0-4.8); MEAN CELL VOLUME 86.4 FL (80.0-100.0); MEAN CORPUSCULAR HGB CONC 33.5 % (32.0-36.0); MONO % 10.7 % (0.0-8.0); NEUT % 63.5 % (16.0-70.0); PLATELET COUNT 206 TH/MM3 (150-450); RED BLOOD COUNT 4.05 MIL/MM3 (4.00-5.30); RED CELL DISTRIBUTION WIDTH 16.7 % (11.6-17.2); WHITE BLOOD COUNT 6.9 TH/MM3 (4.0-11.0)
[2017-03-12 12:06] LABS: ALT (GPT) 30 U/L (10-53); ANION GAP 9 MEQ/L (5-15); AST (GOT) 18 U/L (15-37); BLOOD UREA NITROGEN 11 MG/DL (7-18); CHLORIDE 108 MEQ/L (98-107); GLOMERULAR FILTRATION RATE 49 ML/MIN (>89); MAGNESIUM 1.9 MG/DL (1.5-2.5); SODIUM (NA) 142 MEQ/L (136-145)
[2017-03-12 12:07] LABS: APTT (PATIENT) 21.1 SEC (24.3-30.1); INTERNATIONAL NORMALIZED RATIO 1.1 RATIO; PROTHROMBIN TIME - PATIENT 11.3 SEC (9.8-11.6)
[2017-03-12 12:11] LABS: ALKALINE PHOSPHATASE 83 U/L (45-117); TOTAL BILIRUBIN ADULT 0.5 MG/DL (0.2-1.0)
--- NOTE | 2017-03-12 12:20 | RADRPT ---
EXAM DATE/TIME: 03/12/2017 11:46 [facility] COMPARISON: CHEST SINGLE AP, March 02, 2017, 19:30. INDICATIONS : Chest pain. MEDICAL HISTORY : Hypertension. Carcinoma, thyroid. SURGICAL HISTORY : Thyroidectomy. Fusion, lumbar. Lumbar pain pump. ENCOUNTER: Initial ACUITY: 1 day PAIN SCORE: 6/10 LOCATION: Bilateral chest FINDINGS: A single view of the chest demonstrates the lungs to be symmetrically aerated without evidence of mas s, infiltrate or effusion. The cardiomediastinal contours are unremarkable. Osseous structures are intact. CONCLUSION: No acute disease. Anthony Muñiz MD on March 12, 2017 at 12:18 Board Certified Radiologist. This report was verified electronically.
[2017-03-12 12:38] LABS: CREATINE KINASE 86 U/L (26-192)
[2017-03-12 12:49] VITALS: BP 178/86; PULSE 86; RESP 16; O2SAT 98
[2017-03-12] MEDS ORDERED: POTASSIUM CHLORIDE 10 MEQ CONTROLLED RELEASE TAB PO ONE (13:00)
--- NOTE | 2017-03-12 14:18 | EKG ---
Date Performed: 03/12/2017 Time Performed: 11:18:20 PTAGE: 62 years EKG: probable Sinus tachycardia NONSPECIFIC T-WAVE ABNORMALITY ABNORMAL ECG Compared to prior el ectrocardiogram, rate has increased DOCTOR: Rico Landa Interpretating Date/Time 03/12/2017 14:16:21
[2017-03-12 14:40] VITALS: BP 172/83; PULSE 87; RESP 16; TEMP 97.9; O2SAT 98
[2017-03-12] MEDS ORDERED: KLOR25PO2 PO (16:32)
--- NOTE | 2017-03-12 17:34 | PD ---
Data Data Last Documented VS Vital Signs Date Time Temp Pulse Resp B/P (MAP) Pulse Ox O2 Delivery O2 Flow Rate FiO2 03/12/17 17:27 03/12/17 14:40 97.9 87 16 98 Room Air Orders Orders Electrocardiogram (03/12/17 11:18) Ckmb (Isoenzyme) Profile (03/12/17 11:18) Complete Blood Count With Diff (03/12/17 11:18) Comprehensive Metabolic Panel (03/12/17 11:18) Magnesium (Mg) (03/12/17 11:18) Prothrombin Time / Inr (Pt) (03/12/17 11:18) Act Partial Throm Time (Ptt) (03/12/17 11:18) Troponin I (03/12/17 11:18) Lipase (03/12/17 11:18) Chest, Single Ap (03/12/17 11:18) Ecg Monitoring (03/12/17 11:18) Bilateral Bp Monitoring (03/12/17 11:18) Iv Access Insert/Monitor (03/12/17 11:18) Oximetry (03/12/17 11:18) Oxygen Administration (03/12/17 11:18) Sodium Chloride 0.9% Flush (Ns Flush) (03/12/17 11:30) Sodium Chlorid 0.9% 500 Ml Inj (Ns 500 M (03/12/17 11:30) Al-Mag Hy-Si 40-40-4 Mg/Ml Liq (Mag-Al P (03/12/17 11:30) Pantoprazole Inj (Protonix Inj) (03/12/17 11:30) Metronidazole 500 Mg Inj (Flagyl 500 Mg (03/12/17 11:30) Troponin I (03/12/17 14:30) Potassium Chloride (Kcl) (03/12/17 13:00) Ed Discharge Order (03/12/17 16:48) Labs Laboratory Tests Test 03/12/17 11:32 03/12/17 14:30 White Blood Count 6.9 TH/MM3 Red Blood Count 4.05 MIL/MM3 Hemoglobin 11.7 GM/DL Hematocrit 35.0 % Mean Corpuscular Volume 86.4 FL Mean Corpuscular Hemoglobin 29.0 PG Mean Corpuscular Hemoglobin Concent 33.5 % Red Cell Distribution Width 16.7 % Platelet Count 206 TH/MM3 Mean Platelet Volume 8.2 FL Neutrophils (%) (Auto) 63.5 % Lymphocytes (%) (Auto) 24.9 % Monocytes (%) (Auto) 10.7 % Eosinophils (%) (Auto) 0.5 % Basophils (%) (Auto) 0.4 % Neutrophils # (Auto) 4.4 TH/MM3 Lymphocytes # (Auto) 1.7 TH/MM3 Monocytes # (Auto) 0.7 TH/MM3 Eosinophils # (Auto) 0.0 TH/MM3 Basophils # (Auto) 0.0 TH/MM3 CBC Comment DIFF FINAL Differential Comment Prothrombin Time 11.3 SEC Prothromb Time International Ratio 1.1 RATIO Activated Partial Thromboplast Time 21.1 SEC Blood Urea Nitrogen 11 MG/DL Creatinine 1.12 MG/DL Random Glucose 141 MG/DL Total Protein 7.7 GM/DL Albumin 3.5 GM/DL Calcium Level 8.3 MG/DL Magnesium Level 1.9 MG/DL Alkaline Phosphatase 83 U/L Aspartate Amino Transf (AST/SGOT) 18 U/L Alanine Aminotransferase (ALT/SGPT) 30 U/L Total Bilirubin 0.5 MG/DL Sodium Level 142 MEQ/L Potassium Level 3.0 MEQ/L Chloride Level 108 MEQ/L Carbon Dioxide Level 25.0 MEQ/L Anion Gap 9 MEQ/L Estimat Glomerular Filtration Rate 49 ML/MIN Total Creatine Kinase 86 U/L Troponin I LESS THAN 0.02 NG/ML LESS THAN 0.02 NG/ML Lipase 100 U/L MDM Supervised Visit with KEVIN: Yes Narrative Course The history, exam, and medical decision-making in the associated midlevel provider note were completed with my assistance. I reviewed and agree with the findings presented. I attest that I had a [id number] encounter with the patient on the same day, and personally performed and documented my assessment and findings in the medical record. *My assessment and Findings: This is a 62-year-old female who presents to the emergency department with left chest discomfort, nausea, vomiting and diarrhea. She's had these symptoms for several weeks. She just completed a long hospital stay in the setting of these symptoms. She was seen here in the emergency department twice yesterday for the same symptoms. Yesterday she tested positive for C. difficile toxin and was started on Flagyl. Today is the first time she is endorsing chest pain. She had a reassuring stress test in January of this year. 2 sets of troponin are normal. I don't think the patient requires admission for chest pain as her pain is atypical. Her potassium is slightly low. She was given oral potassium replacement. She was given IV hydration. I did discuss the patient with the on -call physician assistant community director for Dr. Walker. I don't think the patient meets admission criteria for her c diff either. I think she can continue to manage this at home with oral hydration. She's been admitted to the hospital multiple times this year and has had several extensive workups, and the risks of hospital admission may outweigh the benefits. Physician assistant community director said Dr. Walker would be more than happy to see her in clinic on Wednesday. Patient will be discharged. Diagnosis Primary Impression: Hypokalemia Additional Impressions: Atypical chest pain Clostridium difficile diarrhea Referrals: Primary Care Physician Patient Instructions: General Instructions Departure Forms: Tests/Procedures Additional Instruction: Follow-up with primary care physician within 2-3 days. Ensure adequate fluid intake to ensure proper hydration Take medications as prescribed. Scripts Potassium Chloride (Klor-Con 25) 25 Meq Pow 40 MEQ PO DAILY for 5 Days, #5 Prov: Mercedes Alas MD 03/12/17 Disposition: 01 DISCHARGE HOME Condition: Stable Mercedes Alas MD Mar 12, 2017 17:34
== END 2017-03-12 17:27 | disposition home or self-care (01) ==
LOC: NEPC 11:08
DX: R07.89 Other chest pain (principal); E87.6 Hypokalemia; A04.72 Enterocolitis due to Clostridium difficile, not specified as recurrent; R94.31 Abnormal electrocardiogram [ECG] [EKG]; I10 Essential (primary) hypertension; I25.10 Atherosclerotic heart disease of native coronary artery without angina pectoris; I48.91 Unspecified atrial fibrillation; E78.00 Pure hypercholesterolemia, unspecified; F41.9 Anxiety disorder, unspecified
CPT/HCPCS: 71010; 80053; 82550; 83690; 83735; 84484; 85025; 85610; 85730; 93005; 96365; 96375; 99285; C9113; J7040

== ENCOUNTER → 2017-04-06 | Outpatient (CLI) | payer MEDICAID, MEDICARE ==
[~2017-04-06] MED LIST changes: +KLOR25PO2 PO
== END ==
LOC: PHPRE 12:36
PROVIDERS: ATTEND Pain Medicine Interventional Pain Medicine
DX: Z01.818 Encounter for other preprocedural examination (principal)

== ENCOUNTER 2017-05-16 11:56 | Inpatient (IN) | payer MEDICARE, MEDICAID ==
[~2017-05-16] VITALS: Ht 162.6 cm; Wt 84.5 kg
[~2017-05-16 11:56] MED LIST changes: -METH10TA PO; -METR-1 PO
[2017-05-16 12:00] VITALS: BP 208/100; PULSE 88; RESP 15; TEMP 98.2; O2SAT 97
[2017-05-16] MEDS ORDERED: SODIUM CHLOR 0.9% 1000 ML INJ 1,000 ML IV ONE (12:30)
[2017-05-16] MEDS ORDERED: LORazepam 2 MG/ML VIAL ONE ×4 (12:33→12:43)
--- NOTE | 2017-05-16 12:33 | PD ---
HPI Chief Complaint: Altered Mental Status Time Seen by Provider: 12:05 Travel History International Travel<30 days: No Contact w/Intl Traveler<30days: No Traveled to known affect area: No History of Present Illness HPI 62 y female presents to the ED with altered mental status since awaking this morning. The history is provided by a long time neighbor friend. States that the patient's mother was concerned because she has wounds to left hand secondary to bedbugs and believes that this may be infected. In addition, she says that patient is not making any sense. When questioning the patient about pain, patient says she does have pain however is unable to express where this pain is. The friend states that she has had fever with nausea. Again the history is limited as patient is rather altered. PFSH Past Medical History Hx Anticoagulant Therapy: Yes Arthritis: Yes (HANDS) Asthma: No Atrial Fibrillation: Yes Autoimmune Disease: No Blood Disorders: No Anxiety: Yes Depression: Yes Heart Rhythm Problems: No Cancer: Yes (thyroid cancer) Cardiac Catheterization: Yes (20 % CLOGGED ) Cardiovascular Problems: Yes High Cholesterol: Yes Chemotherapy: No Chest Pain: No Congestive Heart Failure: No COPD: No Cerebrovascular Accident: No Coronary Artery Disease: Yes Diabetes: No Diminished Hearing: No Endocrine: Yes Gastrointestinal Disorders: Yes (REFLUX; HX ULCERS) GERD: No Glaucoma: No Genitourinary: No Headaches: No Hepatitis: No Hiatal Hernia: No Hypertension: Yes Immune Disorder: No Implanted Vascular Access Dvce: Yes (MORPHINE PUMP) Kidney Stones: No Medical other: Yes (GERD, HX ULCERS ; ARTHRITIS) Musculoskeletal: Yes (CHRONIC BACK PAIN;ARTHRITIS) Neurologic: Yes (MIGRAINES) Psychiatric: No Reproductive: No Respiratory: Yes (SLEEP APNEA; OXYGEN AT NIGHT) Migraines: Yes Myocardial Infarction: No Radiation Therapy: No Renal Failure: No Seizures: No Sickle Cell Disease: No Sleep Apnea: No Thyroid Disease: Yes (thyroidectomy, from thyroid cancer) Ulcer: Yes PNEUMOCCOCAL Vaccine (Year): 2 Menopausal: Yes Tubal Ligation: Yes Past Surgical History Abdominal Surgery: Yes ("STOMACH/ESOPHAGUS" sx; NAFISA) AICD: No Appendectomy: No Arteriovenous Shunt: No Body Medical Devices: morphine pain pump implanted in lower back Cardiac Surgery: No Cholecystectomy: Yes Coronary Artery Bypass Graft: No Ear Surgery: No Endocrine Surgery: No Eye Surgery: No Genitourinary Surgery: No Gynecologic Surgery: No Hysterectomy: Yes Insulin Pump: No Joint Replacement: No Neurologic Surgery: No Oral Surgery: No Pacemaker: No Thoracic Surgery: No Tonsillectomy: Yes Other Surgery: Yes (THYROIDECTOMY) Social History Alcohol Use: No Tobacco Use: No Substance Use: No Allergies-Medications (Allergen,Severity, Reaction): Coded Allergies: cyclobenzaprine (Verified Allergy, Severe, hives, 03/12/17) paroxetine (Verified Allergy, Severe, rash, 03/12/17) sulfamethoxazole (Verified Allergy, Severe, rash, 03/12/17) trimethoprim (Verified Allergy, Intermediate, rash, 03/12/17) codeine (Verified Adverse Reaction, Severe, NAUSEA, 03/12/17) Reported Meds & Prescriptions Reported Meds & Active Scripts Active Klor-Con 25 (Potassium Chloride) 25 Meq Pow 40 Meq PO DAILY 5 Days Sucralfate Liq (Sucralfate) 1 Gram/10 Ml Tiffanie 1 Gm PO TID on empty stomach Probiotic (Lactobacillus Acidophilus) 10 Billion Cell Cap 1 Cap PO TIDAC Reglan (Metoclopramide HCl) 10 Mg Tab 10 Mg PO QID 10 Days Norvasc (Amlodipine Besylate) 10 Mg Tab 10 Mg PO DAILY 30 Days Cetirizine (Cetirizine HCl) 10 Mg Tab 10 Mg PO Q12HR 30 Days Potassium Chloride ER (Potassium Chloride) 10 Meq Cap 10 Meq PO BID 30 Days Pantoprazole (Pantoprazole Sodium) 40 Mg Tab 40 Mg PO Q12HR 30 Days [Whth-Jghmr-Isul 325-50-40 Mg] 1 TAB Tab 1 Tab PO Q8H PRN 10 Days Zofran (Ondansetron HCl) 4 Mg Tab 4 Mg PO Q12HR PRN 30 Days Catapres (Clonidine) 0.1 Mg Tab 0.1 Mg PO TID MDD 0.9 quantity 30 Days Gabapentin 300 Mg Cap 600 Mg PO BID Reported Trazodone (Trazodone HCl) 100 Mg Tablet 200 Mg PO HS Aspir-81 (Aspirin) 81 Mg Tabdr 1 Tab PO HS Levothyroxine (Levothyroxine Sodium) 200 Mcg Tab 200 Mcg PO DAILY Seroquel (Quetiapine Fumarate) 300 Mg Tab 300 Mg PO DAILY Review of Systems ROS Limitations: Altered Mental Status Except as stated in HPI: all other systems reviewed are Neg Physical Exam Narrative GENERAL: Well-developed well-nourished, in mild distress, altered. GCS 11-12, spontaneous eye opening, confused to nonverbal, painful response elicits tenderness to the area SKIN: Focused skin assessment warm/dry. Right hand-multiple areas of broken skin without edema or surrounding erythema HEAD: Atraumatic. Normocephalic. EYES: Pupils equal and round. No scleral icterus. No injection or drainage. ENT: No nasal bleeding or discharge. Mucous membranes pink and dry NECK: Trachea midline. No JVD. No lymphadenopathy CARDIOVASCULAR: Regular rate and rhythm. No murmur appreciated. RESPIRATORY: No accessory muscle use. Clear to auscultation. Breath sounds equal bilaterally. GASTROINTESTINAL: Abdomen soft, diffusely tender, nondistended. No organomegaly MUSCULOSKELETAL: No obvious deformities. No clubbing. No cyanosis. No edema. NEUROLOGICAL: Awake and alert. No obvious cranial nerve deficits. Motor grossly within normal limits. Normal speech. Data Data Last Documented VS Vital Signs Date Time Temp Pulse Resp B/P (MAP) Pulse Ox O2 Delivery O2 Flow Rate FiO2 05/16/17 18:42 97 18 186/90 (122) 100 Nasal Cannula 2.00 05/16/17 12:00 98.2 Orders Orders Electrocardiogram (05/16/17 12:16) Ammonia (05/16/17 12:16) Complete Blood Count With Diff (05/16/17 12:16) Comprehensive Metabolic Panel (05/16/17 12:16) Creatine Kinase (Cpk) (05/16/17 12:16) Prothrombin Time / Inr (Pt) (05/16/17 12:16) Act Partial Throm Time (Ptt) (05/16/17 12:16) Troponin I (05/16/17 12:16) Thyroid Stimulating Hormone (05/16/17 12:16) Urinalysis - C+S If Indicated (05/16/17 12:16) Lactic Acid Sepsis Protocol (05/16/17 12:16) Blood Culture (05/16/17 12:16) Chest, Single Ap (05/16/17 12:16) Ct Brain W/O Iv Contrast(Rout) (05/16/17 12:16) Blood Glucose (05/16/17 12:16) Ecg Monitoring (05/16/17 12:16) Iv Access Insert/Monitor (05/16/17 12:16) Oximetry (05/16/17 12:16) Oxygen Administration (05/16/17 12:16) Drug Screen, Random Urine (05/16/17 12:16) Sodium Chlor 0.9% 1000 Ml Inj (Ns 1000 M (05/16/17 12:30) Lorazepam Inj (Ativan Inj) (05/16/17 12:33) Lorazepam Inj (Ativan Inj) (05/16/17 12:34) Lorazepam Inj (Ativan Inj) (05/16/17 12:39) Lorazepam Inj (Ativan Inj) (05/16/17 12:43) Lorazepam Inj (Ativan Inj) (05/16/17 13:00) Lorazepam Inj (Ativan Inj) (05/16/17 13:00) Urine Culture (05/16/17 13:00) Ct Abd/Pel W Iv Contrast(Rout) (05/16/17 ) CKMB (05/16/17 14:30) CKMB% (05/16/17 14:30) Ondansetron Inj (Zofran Inj) (05/16/17 15:30) Iohexol 350 Inj (Omnipaque 350 Inj) (05/16/17 18:05) Ondansetron Inj (Zofran Inj) (05/16/17 18:15) Metoclopramide Inj (Reglan Inj) (05/16/17 18:15) Potassium Chlor 10 Meq Premix (Kcl 10 Me (05/16/17 18:30) Insert Ng Tube (05/16/17 18:44) Admit Order (Ed Use Only) (05/16/17 19:09) Consult Neurology (05/16/17 ) Labs Laboratory Tests Test 05/16/17 12:30 05/16/17 13:00 05/16/17 14:30 05/16/17 18:30 White Blood Count 9.9 TH/MM3 Red Blood Count 4.25 MIL/MM3 Hemoglobin 12.3 GM/DL Hematocrit 36.5 % Mean Corpuscular Volume 85.8 FL Mean Corpuscular Hemoglobin 28.9 PG Mean Corpuscular Hemoglobin Concent 33.7 % Red Cell Distribution Width 16.3 % Platelet Count 219 TH/MM3 Mean Platelet Volume 9.2 FL Neutrophils (%) (Auto) 78.8 % Lymphocytes (%) (Auto) 9.0 % Monocytes (%) (Auto) 11.6 % Eosinophils (%) (Auto) 0.0 % Basophils (%) (Auto) 0.6 % Neutrophils # (Auto) 7.8 TH/MM3 Lymphocytes # (Auto) 0.9 TH/MM3 Monocytes # (Auto) 1.2 TH/MM3 Eosinophils # (Auto) 0.0 TH/MM3 Basophils # (Auto) 0.1 TH/MM3 CBC Comment DIFF FINAL Differential Comment Lactic Acid Level 2.4 mmol/L 3.6 mmol/L Ammonia 16 MCMOL/L Prothrombin Time 11.4 SEC Prothromb Time International Ratio 1.1 RATIO Activated Partial Thromboplast Time 22.6 SEC Urine Color YELLOW Urine Turbidity CLEAR Urine pH 6.0 Urine Specific [place] 1.016 Urine Protein 100 mg/dL Urine Glucose (UA) NEG mg/dL Urine Ketones 10 mg/dL Urine Occult Blood LARGE Urine Nitrite NEG Urine Bilirubin NEG Urine Urobilinogen LESS THAN 2.0 MG/DL Urine Leukocyte Esterase SMALL Urine RBC 2 /hpf Urine WBC 3 /hpf Urine Squamous Epithelial Cells <1 /hpf Urine Bacteria RARE /hpf Urine Mucus FEW /lpf Microscopic Urinalysis Comment CATH-CULTURE IND Urine Opiates Screen POS Urine Barbiturates Screen POS Urine Amphetamines Screen NEG Urine Benzodiazepines Screen NEG Urine Cocaine Screen NEG Urine Cannabinoids Screen NEG Blood Urea Nitrogen 8 MG/DL Creatinine 1.08 MG/DL Random Glucose 177 MG/DL Total Protein 8.1 GM/DL Albumin 3.2 GM/DL Calcium Level 8.4 MG/DL Alkaline Phosphatase 72 U/L Aspartate Amino Transf (AST/SGOT) 39 U/L Alanine Aminotransferase (ALT/SGPT) 17 U/L Total Bilirubin 0.5 MG/DL Sodium Level 139 MEQ/L Potassium Level 3.1 MEQ/L Chloride Level 104 MEQ/L Carbon Dioxide Level 25.4 MEQ/L Anion Gap 10 MEQ/L Estimat Glomerular Filtration Rate 51 ML/MIN Total Creatine Kinase 962 U/L Creatine Kinase MB 8.9 NG/ML Creatine Kinase MB % 0.9 % Troponin I 0.04 NG/ML Thyroid Stimulating Hormone 3rd Gen 0.026 uIU/ML Phenobarbital Level LESS THAN 2.1 MCG/ML MDM Medical Decision Making Medical Screen Exam Complete: Yes Emergency Medical Condition: Yes Differential Diagnosis AMS, hepatic encephalopathy, sepsis Narrative Course 62 y female presents to the ED with altered mental status since awaking this morning. The history is provided by a long time neighbor friend. States that the patient's mother was concerned because she has wounds to left hand secondary to bedbugs and believes that this may be infected. In addition, she says that patient is not making any sense. When questioning the patient about pain, patient says she does have pain however is unable to express where this pain is. The friend states that she has had fever with nausea. Again the history is limited as patient is rather altered. While labs were being drawn, pt had a seizure that resulted in urinary incontinence with a postictal period. A total of 6mg Ativan administered for cessation of the seizure. Pt noted to be tachycardic. A discussion with her friend demonstrated that she in fact has a history of seizures but does not take any medication for this. EKG shows sinus tachycardia Laboratory Tests Test 05/16/17 12:30 05/16/17 13:00 White Blood Count 9.9 TH/MM3 Red Blood Count 4.25 MIL/MM3 Hemoglobin 12.3 GM/DL Hematocrit 36.5 % Mean Corpuscular Volume 85.8 FL Mean Corpuscular Hemoglobin 28.9 PG Mean Corpuscular Hemoglobin Concent 33.7 % Red Cell Distribution Width 16.3 % Platelet Count 219 TH/MM3 Mean Platelet Volume 9.2 FL Neutrophils (%) (Auto) 78.8 % Lymphocytes (%) (Auto) 9.0 % Monocytes (%) (Auto) 11.6 % Eosinophils (%) (Auto) 0.0 % Basophils (%) (Auto) 0.6 % Neutrophils # (Auto) 7.8 TH/MM3 Lymphocytes # (Auto) 0.9 TH/MM3 Monocytes # (Auto) 1.2 TH/MM3 Eosinophils # (Auto) 0.0 TH/MM3 Basophils # (Auto) 0.1 TH/MM3 CBC Comment DIFF FINAL Differential Comment Lactic Acid Level 2.4 mmol/L Ammonia 16 MCMOL/L Prothrombin Time 11.4 SEC Prothromb Time International Ratio 1.1 RATIO Activated Partial Thromboplast Time 22.6 SEC Urine Color YELLOW Urine Turbidity CLEAR Urine pH 6.0 Urine Specific [place] 1.016 Urine Protein 100 mg/dL Urine Glucose (UA) NEG mg/dL Urine Ketones 10 mg/dL Urine Occult Blood LARGE Urine Nitrite NEG Urine Bilirubin NEG Urine Urobilinogen LESS THAN 2.0 MG/DL Urine Leukocyte Esterase SMALL Urine RBC 2 /hpf Urine WBC 3 /hpf Urine Squamous Epithelial Cells <1 /hpf Urine Bacteria RARE /hpf Urine Mucus FEW /lpf Microscopic Urinalysis Comment CATH-CULTURE IND Urine Opiates Screen POS Urine Barbiturates Screen POS Urine Amphetamines Screen NEG Urine Benzodiazepines Screen NEG Urine Cocaine Screen NEG Urine Cannabinoids Screen NEG UA shows large blood, small leukocyte esterase, rare bacteria. No leukocytosis present. Ammonia 16, lactic acid 2.4. Note that this was drawn after the onset of seizure activity. Potassium 3.1- 10meq administered IV There is no obvious source of sepsis. Urine drug screen positive for opiates and barbituates, consistent with patient' s history of morphine pain pump and Fioricet. Upon reassessment, pt appears to have bilious vomiting. CT abdomen/pelvis w IV contrast ordered. Pt was able to tell me she had pain in the abdomen but not localized. Note that pt was in the ED an extended amount of time secondary to awaiting CT. Zofran and Reglan administered for nausea/ vomiting. Last Impressions Head CT 05/16/17 1216 Signed Impressions: Service Date/Time: Tuesday, May 16, 2017 13:50 - CONCLUSION: Intracranially negative. Sinus disease as described above with an air-fluid level right maxillary sinus suggesting acute sinusitis Major Alfred MD Chest X-Ray 05/16/17 1216 Signed Impressions: Service Date/Time: Tuesday, May 16, 2017 14:05 - CONCLUSION: No acute disease. No significant change has occurred. Major Alfred MD NG tube will be placed. Pt will be NPO. She will be admitted for AMS, acute encephalopathy, partial SBO vs ileus Please see Dr. Quiros's note as well regarding this patient. Recommend neuro consult. Consider GI consult vs Gen surgery Diagnosis Primary Impression: Acute encephalopathy Additional Impressions: Small bowel obstruction Hypokalemia Seizure Admitting Information Admitting Physician Requests: Admit Condition: Stable Alice Canales May 16, 2017 12:33
[2017-05-16] MEDS ORDERED: LORazepam 2 MG/ML VIAL IV PUSH ONE ×2 (13:00)
--- NOTE | 2017-05-16 13:03 | PD ---
Physical Exam Date Seen by Provider: May 16, 2017 Time Seen by Provider: 13:01 Narrative The patient is a 62-year-old female who is initially evaluated by the mid-level provider. Please refer to the initial history, physical, diagnostic evaluation, and treatment modality plan. Data Data Last Documented VS Vital Signs Date Time Temp Pulse Resp B/P (MAP) Pulse Ox O2 Delivery O2 Flow Rate FiO2 05/16/17 18:42 97 18 186/90 (122) 100 Nasal Cannula 2.00 05/16/17 12:00 98.2 Orders Orders Electrocardiogram (05/16/17 12:16) Ammonia (05/16/17 12:16) Complete Blood Count With Diff (05/16/17 12:16) Comprehensive Metabolic Panel (05/16/17 12:16) Creatine Kinase (Cpk) (05/16/17 12:16) Prothrombin Time / Inr (Pt) (05/16/17 12:16) Act Partial Throm Time (Ptt) (05/16/17 12:16) Troponin I (05/16/17 12:16) Thyroid Stimulating Hormone (05/16/17 12:16) Urinalysis - C+S If Indicated (05/16/17 12:16) Lactic Acid Sepsis Protocol (05/16/17 12:16) Blood Culture (05/16/17 12:16) Chest, Single Ap (05/16/17 12:16) Ct Brain W/O Iv Contrast(Rout) (05/16/17 12:16) Blood Glucose (05/16/17 12:16) Ecg Monitoring (05/16/17 12:16) Iv Access Insert/Monitor (05/16/17 12:16) Oximetry (05/16/17 12:16) Oxygen Administration (05/16/17 12:16) Drug Screen, Random Urine (05/16/17 12:16) Sodium Chlor 0.9% 1000 Ml Inj (Ns 1000 M (05/16/17 12:30) Lorazepam Inj (Ativan Inj) (05/16/17 12:33) Lorazepam Inj (Ativan Inj) (05/16/17 12:34) Lorazepam Inj (Ativan Inj) (05/16/17 12:39) Lorazepam Inj (Ativan Inj) (05/16/17 12:43) Lorazepam Inj (Ativan Inj) (05/16/17 13:00) Lorazepam Inj (Ativan Inj) (05/16/17 13:00) Urine Culture (05/16/17 13:00) Ct Abd/Pel W Iv Contrast(Rout) (05/16/17 ) CKMB (05/16/17 14:30) CKMB% (05/16/17 14:30) Ondansetron Inj (Zofran Inj) (05/16/17 15:30) Iohexol 350 Inj (Omnipaque 350 Inj) (05/16/17 18:05) Ondansetron Inj (Zofran Inj) (05/16/17 18:15) Metoclopramide Inj (Reglan Inj) (05/16/17 18:15) Potassium Chlor 10 Meq Premix (Kcl 10 Me (05/16/17 18:30) Insert Ng Tube (05/16/17 18:44) Admit Order (Ed Use Only) (05/16/17 19:09) Consult Neurology (05/16/17 ) Labs Laboratory Tests Test 05/16/17 12:30 05/16/17 13:00 05/16/17 14:30 05/16/17 18:30 White Blood Count 9.9 TH/MM3 Red Blood Count 4.25 MIL/MM3 Hemoglobin 12.3 GM/DL Hematocrit 36.5 % Mean Corpuscular Volume 85.8 FL Mean Corpuscular Hemoglobin 28.9 PG Mean Corpuscular Hemoglobin Concent 33.7 % Red Cell Distribution Width 16.3 % Platelet Count 219 TH/MM3 Mean Platelet Volume 9.2 FL Neutrophils (%) (Auto) 78.8 % Lymphocytes (%) (Auto) 9.0 % Monocytes (%) (Auto) 11.6 % Eosinophils (%) (Auto) 0.0 % Basophils (%) (Auto) 0.6 % Neutrophils # (Auto) 7.8 TH/MM3 Lymphocytes # (Auto) 0.9 TH/MM3 Monocytes # (Auto) 1.2 TH/MM3 Eosinophils # (Auto) 0.0 TH/MM3 Basophils # (Auto) 0.1 TH/MM3 CBC Comment DIFF FINAL Differential Comment Lactic Acid Level 2.4 mmol/L 3.6 mmol/L Ammonia 16 MCMOL/L Prothrombin Time 11.4 SEC Prothromb Time International Ratio 1.1 RATIO Activated Partial Thromboplast Time 22.6 SEC Urine Color YELLOW Urine Turbidity CLEAR Urine pH 6.0 Urine Specific [place] 1.016 Urine Protein 100 mg/dL Urine Glucose (UA) NEG mg/dL Urine Ketones 10 mg/dL Urine Occult Blood LARGE Urine Nitrite NEG Urine Bilirubin NEG Urine Urobilinogen LESS THAN 2.0 MG/DL Urine Leukocyte Esterase SMALL Urine RBC 2 /hpf Urine WBC 3 /hpf Urine Squamous Epithelial Cells <1 /hpf Urine Bacteria RARE /hpf Urine Mucus FEW /lpf Microscopic Urinalysis Comment CATH-CULTURE IND Urine Opiates Screen POS Urine Barbiturates Screen POS Urine Amphetamines Screen NEG Urine Benzodiazepines Screen NEG Urine Cocaine Screen NEG Urine Cannabinoids Screen NEG Blood Urea Nitrogen 8 MG/DL Creatinine 1.08 MG/DL Random Glucose 177 MG/DL Total Protein 8.1 GM/DL Albumin 3.2 GM/DL Calcium Level 8.4 MG/DL Alkaline Phosphatase 72 U/L Aspartate Amino Transf (AST/SGOT) 39 U/L Alanine Aminotransferase (ALT/SGPT) 17 U/L Total Bilirubin 0.5 MG/DL Sodium Level 139 MEQ/L Potassium Level 3.1 MEQ/L Chloride Level 104 MEQ/L Carbon Dioxide Level 25.4 MEQ/L Anion Gap 10 MEQ/L Estimat Glomerular Filtration Rate 51 ML/MIN Total Creatine Kinase 962 U/L Creatine Kinase MB 8.9 NG/ML Creatine Kinase MB % 0.9 % Troponin I 0.04 NG/ML Thyroid Stimulating Hormone 3rd Gen 0.026 uIU/ML Phenobarbital Level LESS THAN 2.1 MCG/ML [facility] Medical Record Reviewed: Yes Supervised Visit with KEVIN: Yes Interpretation(s) Last Impressions Head CT 05/16/17 1216 Signed Impressions: Service Date/Time: Tuesday, May 16, 2017 13:50 - CONCLUSION: Intracranially negative. Sinus disease as described above with an air-fluid level right maxillary sinus suggesting acute sinusitis Major Alfred MD Chest X-Ray 05/16/17 1216 Signed Impressions: Service Date/Time: Tuesday, May 16, 2017 14:05 - CONCLUSION: No acute disease. No significant change has occurred. Major Alfred MD Abdomen/Pelvis CT 05/16/17 0000 Signed Impressions: Service Date/Time: Tuesday, May 16, 2017 17:46 - CONCLUSION: 1. Multiple dilated loops of small bowel down to the right lower quadrant without significant air-fluid levels. No abdominal mass seen. Different considerations include ileus and partial obstruction. 2. Stable appearance to multiple sigmoid diverticula without radiographic evidence of diverticulitis. 3. 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 Arnaud Alan MD Laboratory Tests Test 05/16/17 12:30 05/16/17 13:00 05/16/17 14:30 05/16/17 18:30 White Blood Count 9.9 TH/MM3 Red Blood Count 4.25 MIL/MM3 Hemoglobin 12.3 GM/DL Hematocrit 36.5 % Mean Corpuscular Volume 85.8 FL Mean Corpuscular Hemoglobin 28.9 PG Mean Corpuscular Hemoglobin Concent 33.7 % Red Cell Distribution Width 16.3 % Platelet Count 219 TH/MM3 Mean Platelet Volume 9.2 FL Neutrophils (%) (Auto) 78.8 % Lymphocytes (%) (Auto) 9.0 % Monocytes (%) (Auto) 11.6 % Eosinophils (%) (Auto) 0.0 % Basophils (%) (Auto) 0.6 % Neutrophils # (Auto) 7.8 TH/MM3 Lymphocytes # (Auto) 0.9 TH/MM3 Monocytes # (Auto) 1.2 TH/MM3 Eosinophils # (Auto) 0.0 TH/MM3 Basophils # (Auto) 0.1 TH/MM3 CBC Comment DIFF FINAL Differential Comment Lactic Acid Level 2.4 mmol/L 3.6 mmol/L Ammonia 16 MCMOL/L Prothrombin Time 11.4 SEC Prothromb Time International Ratio 1.1 RATIO Activated Partial Thromboplast Time 22.6 SEC Urine Color YELLOW Urine Turbidity CLEAR Urine pH 6.0 Urine Specific [place] 1.016 Urine Protein 100 mg/dL Urine Glucose (UA) NEG mg/dL Urine Ketones 10 mg/dL Urine Occult Blood LARGE Urine Nitrite NEG Urine Bilirubin NEG Urine Urobilinogen LESS THAN 2.0 MG/DL Urine Leukocyte Esterase SMALL Urine RBC 2 /hpf Urine WBC 3 /hpf Urine Squamous Epithelial Cells <1 /hpf Urine Bacteria RARE /hpf Urine Mucus FEW /lpf Microscopic Urinalysis Comment CATH-CULTURE IND Urine Opiates Screen POS Urine Barbiturates Screen POS Urine Amphetamines Screen NEG Urine Benzodiazepines Screen NEG Urine Cocaine Screen NEG Urine Cannabinoids Screen NEG Blood Urea Nitrogen 8 MG/DL Creatinine 1.08 MG/DL Random Glucose 177 MG/DL Total Protein 8.1 GM/DL Albumin 3.2 GM/DL Calcium Level 8.4 MG/DL Alkaline Phosphatase 72 U/L Aspartate Amino Transf (AST/SGOT) 39 U/L Alanine Aminotransferase (ALT/SGPT) 17 U/L Total Bilirubin 0.5 MG/DL Sodium Level 139 MEQ/L Potassium Level 3.1 MEQ/L Chloride Level 104 MEQ/L Carbon Dioxide Level 25.4 MEQ/L Anion Gap 10 MEQ/L Estimat Glomerular Filtration Rate 51 ML/MIN Total Creatine Kinase 962 U/L Creatine Kinase MB 8.9 NG/ML Creatine Kinase MB % 0.9 % Troponin I 0.04 NG/ML Thyroid Stimulating Hormone 3rd Gen 0.026 uIU/ML Differential Diagnosis Differential diagnosis includes encephalitis, intracranial hemorrhage, new onset seizure, hyponatremia, elevated ammonia level, hypocalcemia, drug ingestion, medication side effect, delirium, sepsis. Narrative Course I, Dr. Quiros, have reviewed the advance practice practitioner's documentation and am in agreement, met with the patient face to face, made the diagnosis, and the medical decision making was done by me. *My assessment and Findings: The patient is a 62-year-old female was initially evaluated by the mid-level provider. Please refer to the initial history, physical, diagnostic evaluation, treatment modality plan. The patient arrived with altered mental status, was noted to be altered, not following commands. The patient then had what appeared to be a tonic-clonic seizure with eye deviation, tonic-clonic activity, and tachycardia. The patient had no IV at that time, was administered Ativan 1 g IM and then IV was established. The patient was administered a total of Ativan 4 mg intravenously prior to the seizure resolving. The patient was then somewhat lethargic, was placed on monitoring and O2 via nasal cannula. Stat CT the brain was obtained. I had a discussion with a friend of the family at bedside who called the family, family states the patient does have a history of seizures but is not currently taking any medications for seizures. However, the friend of the family is unsure if this is a reliable history. Review the EMR does reveal the patient is had several EEGs in the past, one was abnormal and one was normal. I spoke with the mother who is at bedside, she states the patient has had seizures before but does not take medications for seizures. Mother states the patient does live with her, is on chronic pain medications and psychiatric medications. She states the patient has been found unresponsive before with altered mental status, she states she has never had a specific diagnosis of her altered mental status. After the total of 5 mg Ativan, the patient was still somewhat restless, tachycardic with a heart rate of 105-110, not following commands. CT the brain was negative. Lactic acid was elevated, repeat lactic acid reveals elevation, may be secondary to seizure patient had in the emergency department. There is no further seizure activity. CT the abdomen and pelvis was obtained as the patient had bilious vomiting, questionable partial small bowel obstruction. The patient has an obvious encephalopathy, toxic screen is positive for barbiturates, therefore, phenobarbital level was sent to lab. Diagnosis Primary Impression: Acute encephalopathy Additional Impressions: Small bowel obstruction Lactic acidemia Condition: Serious Jatinder Quiros MD May 16, 2017 13:03
[2017-05-16 13:06] LABS: AUTOMATED NEUTROPHIL # 7.8 TH/MM3 (1.8-7.7); BASOPHIL # 0.1 TH/MM3 (0-0.2); BASOPHIL % 0.6 % (0.0-2.0); HEMATOCRIT 36.5 % (35.0-46.0); HEMOGLOBIN 12.3 GM/DL (11.6-15.3); LYMPHOCYTE # 0.9 TH/MM3 (1.0-4.8); MEAN CELL VOLUME 85.8 FL (80.0-100.0); MEAN CORPUSCULAR HEMOGLOBIN 28.9 PG (27.0-34.0); MEAN CORPUSCULAR HGB CONC 33.7 % (32.0-36.0); MEAN PLATELET VOLUME 9.2 FL (7.0-11.0); MONO % 11.6 % (0.0-8.0); MONOCYTE # 1.2 TH/MM3 (0-0.9); NEUT % 78.8 % (16.0-70.0); PLATELET COUNT 219 TH/MM3 (150-450); RED BLOOD COUNT 4.25 MIL/MM3 (4.00-5.30); RED CELL DISTRIBUTION WIDTH 16.3 % (11.6-17.2); WHITE BLOOD COUNT 9.9 TH/MM3 (4.0-11.0)
[2017-05-16 13:09] VITALS: BP 159/87; PULSE 116; RESP 18; O2SAT 98
[2017-05-16 13:22] LABS: BACTERIA, URINE RARE /hpf; BILIRUBIN, URINE NEG (NEG); BLOOD, URINE LARGE (NEG); GLUCOSE,URINE NEG (NEG); KETONE, URINE 10 mg/dL (NEG); MUCUS URINE FEW /lpf (OCC); NITRITE,URINE NEG (NEG); SQUAMOUS EPITHELIAL CELL URINE <1 /hpf (0-5); URINE COLOR YELLOW (YELLW/STRAW); URINE LEUKOCYTE ESTERASE SMALL (NEG)
[2017-05-16 13:25] LABS: LACTIC ACID SEPSIS PROTOCOL 2.4 mmol/L (0.4-2.0)
[2017-05-16 13:30] LABS: INTERNATIONAL NORMALIZED RATIO 1.1 RATIO; PROTHROMBIN TIME - PATIENT 11.4 SEC (9.8-11.6)
--- NOTE | 2017-05-16 14:10 | RADRPT ---
EXAM DATE/TIME: 05/16/2017 13:50 [facility] COMPARISON: CT BRAIN W/O CONTRAST, March 07, 2017, 12:22. INDICATIONS : Altered mental status. RADIATION DOSE: 56.35 CTDIvol (mGy) MEDICAL HISTORY : Cardiovascular disease. SURGICAL HISTORY : None. ENCOUNTER: Initial ACUITY: 1 day PAIN SCALE: Non-responsive LOCATION: cranial TECHNIQUE: Multiple contiguous axial images were obtained of the head. Using automated exposure control and adj ustment of the mA and/or kV according to patient size, radiation dose was kept as low as reasonably a chievable to obtain optimal diagnostic quality images. DICOM format image data is available electro nically for review and comparison. FINDINGS: CEREBRUM: The ventricles are normal for age. No evidence of midline shift, mass lesion, hemorrhage or acute in farction. No extra-axial fluid collections are seen. POSTERIOR FOSSA: The cerebellum and brainstem are intact. The 4th ventricle is midline. The cerebellopontine angle i s unremarkable. EXTRACRANIAL: The visualized portion of the orbits is intact. Sinus disease with an air fluid level in the posterio r right maxillary sinus and equal periosteal thickening in the ethmoid air cells as well as posterior ly in the left ethmoid sinus air cell. SKULL: The calvaria is intact. No evidence of skull fracture. CONCLUSION: Intracranially negative. Sinus disease as described above with an air-fluid l evel right maxillary sinus suggesting acute sinusitis Major Alfred MD on May 16, 2017 at 14:06 Board Certified Radiologist. This report was verified electronically.
--- NOTE | 2017-05-16 14:11 | RADRPT ---
EXAM DATE/TIME: 05/16/2017 14:05 [facility] COMPARISON: CHEST SINGLE AP, March 12, 2017, 11:46. INDICATIONS : Syncope, seizure MEDICAL HISTORY : Hypertension. Carcinoma, thyroid.Seizure SURGICAL HISTORY : Thyroidectomy. Fusion, lumbar. Lumbar pain pump ENCOUNTER: Initial ACUITY: 1 day PAIN SCORE: Non-responsive. LOCATION: chest FINDINGS: A single view of the chest demonstrates the lungs to be symmetrically aerated without evidence of mas s, infiltrate or effusion. The cardiomediastinal contours are unremarkable atherosclerotic changes o f aorta Osseous structures are intact. CONCLUSION: No acute disease. No significant change has occurred. Major Alfred MD on May 16, 2017 at 14:08 Board Certified Radiologist. This report was verified electronically.
[2017-05-16 15:08] LABS: ALBUMIN 3.2 GM/DL (3.4-5.0); ALT (GPT) 17 U/L (10-53); AST (GOT) 39 U/L (15-37); BICARBONATE 25.4 MEQ/L (21.0-32.0); BLOOD UREA NITROGEN 8 MG/DL (7-18); CALCIUM 8.4 MG/DL (8.5-10.1); CHLORIDE 104 MEQ/L (98-107); CREATININE 1.08 MG/DL (0.50-1.00); GLOMERULAR FILTRATION RATE 51 ML/MIN (>89); GLUCOSE,RANDOM 177 MG/DL (74-106); SODIUM (NA) 139 MEQ/L (136-145)
[2017-05-16 15:21] LABS: ALKALINE PHOSPHATASE 72 U/L (45-117); TOTAL BILIRUBIN ADULT 0.5 MG/DL (0.2-1.0); TOTAL PROTEIN 8.1 GM/DL (6.4-8.2); TROPONIN I 0.04 NG/ML (0.02-0.05)
[2017-05-16] MEDS ORDERED: ONDANSETRON HCL 4 MG/2 ML VIAL IV PUSH ONE ×2 (15:30→18:15)
[2017-05-16 17:03] VITALS: BP 164/82; PULSE 99; RESP 18; O2SAT 100
[2017-05-16] MEDS ORDERED: IOHEXOL 350 MG/ML 10 ML VIAL (for RAD DIAG) IVCONTRAST ONE (18:05)
[2017-05-16] MEDS ORDERED: METOCLOPRAMIDE HCL 10 MG/2 ML VIAL IV PUSH ONE (18:15)
[2017-05-16] MEDS ORDERED: POTASSIUM CHLOR 10 MEQ PREMIX 100 ML IV ONE (18:30)
--- NOTE | 2017-05-16 18:35 | RADRPT ---
EXAM DATE/TIME: 05/16/2017 17:46 [facility] COMPARISON: CT ABDOMEN & PELVIS W CONTRAST, March 03, 2017, 18:04. INDICATIONS : Abdominal pain. IV CONTRAST: 75 cc Omnipaque 350 (iohexol) IV ORAL CONTRAST: No oral contrast ingested. RADIATION DOSE: 13.92 CTDIvol (mGy) MEDICAL HISTORY : Cardiovascular disease. SURGICAL HISTORY : Cholecystectomy. Hysterectomy.Morphine pump ENCOUNTER: Initial ACUITY: 1 day PAIN SCALE: Non-responsive LOCATION: abdomen TECHNIQUE: Volumetric scanning of the abdomen and pelvis was performed. Using automated exposure control and ad justment of the mA and/or kV according to patient size, radiation dose was kept as low as reasonably achievable to obtain optimal diagnostic quality images. DICOM format image data is available electro nically for review and comparison. FINDINGS: LOWER LUNGS: The visualized lower lungs are clear. LIVER: 8mm low density lesion in the lower right lobe, probably a cyst unchanged from 03/03/17. No solid le sions seen. Cholecystectomy. SPLEEN: Normal size without lesion. PANCREAS: Within normal limits. KIDNEYS: Lobular appearance of the cortex of both kidneys, unchanged from prior. No evidence of hydronephrosi s. No calcified renal stones. ADRENAL GLANDS: Within normal limits. VASCULAR: There is no aortic aneurysm. BOWEL/MESENTERY: Normal multiple dilated loops of small bowel which measure up to 3.5 cm in dimension. The stomach is also mildly distended with air-fluid level. The transition in diameter occurs in the right lower qu adrant; no mass seen no focal induration in the transition zone. Multiple moderate size sigmoid dive rticula without radiographic evidence of diverticulitis; unchanged from prior. ABDOMINAL WALL: Within normal limits. RETROPERITONEUM: There is no lymphadenopathy. BLADDER: Carney catheter in nondistended bladder. REPRODUCTIVE: Within normal limits. INGUINAL: There is no lymphadenopathy or hernia. MUSCULOSKELETAL: Spinal stimulation electrode in the lumbar region. CONCLUSION: 1. Multiple dilated loops of small bowel down to the right lower quadrant without significant air-flu id levels. No abdominal mass seen. Different considerations include ileus and partial obstruction. 2. Stable appearance to multiple sigmoid diverticula without radiographic evidence of diverticulitis. 3. 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 Arnaud Alan MD on May 16, 2017 at 18:12 Board Certified Radiologist. This report was verified electronically.
[2017-05-16 18:42] VITALS: BP 186/90; PULSE 97; RESP 18; O2SAT 100
[2017-05-16] MEDS ORDERED: LACTULOSE SYRUP 20 GM/30 ML CUP PO PRN (19:15)
[2017-05-16] MEDS ORDERED: ACETAMINOPHEN 325 MG TAB PO PRN (19:15)
[2017-05-16] MEDS ORDERED: MAGNESIUM HYDROXIDE SUSP 30 ML CUP PO PRN (19:15)
[2017-05-16] MEDS ORDERED: LORazepam 2 MG/ML VIAL IV PUSH PRN (19:15)
[2017-05-16] MEDS ORDERED: SENNOSIDES 8.6 MG TAB PO PRN (19:15)
[2017-05-16] MEDS ORDERED: SODIUM CHLORIDE 0.9% FLUSH 10 ML FLUSH IV FLUSH PRN (19:15)
[2017-05-16] MEDS ORDERED: MORPHINE SULFATE 2 MG/ML INJ IV PUSH PRN (19:15)
[2017-05-16] MEDS ORDERED: BISACODYL 10 MG SUPP RECTAL PRN (19:15)
--- NOTE | 2017-05-16 19:18 | HHI.HP ---
[facility] Unknown Admission Diagnosis AMS, acute encephalopathy, SBO vs ileus Diagnoses: (1) Encephalopathy Diagnosis: Principal (2) UTI (urinary tract infection) Diagnosis: Principal (3) Seizure Diagnosis: Principal (4) Lactic acidosis Diagnosis: Principal (5) SBO (small bowel obstruction) Diagnosis: Principal (6) Renal insufficiency Diagnosis: Principal (7) Rhabdomyolysis Diagnosis: Principal Travel History International Travel<30 Days: No Contact w/Intl Traveler <30 Da: No Traveled to Known Affected Are: No History of Present Illness This is a 62-year-old female with a PMH of Anxiety, Depression, HTN, CAD, Hyperlipidemia, Thyroid CA s/p Thyroidectomy, Seizure Disorder, Migraine, Chronic Back Pain s/p Morphine Pump Implantation and GERD who was brought to the ER secondary to AMS. Patient very poor historian, unable to provide history. Per report, pt's Mother noted pt to be more confused, which she believes is secondary to her pain medication. While in ER, pt w/ seizure x2 requiring several doses of Ativan. Per review of records, pt w/ h/o seizure disorder, unclear what medications she takes. On arrival, BP 208/100, HR 88, O2 sat 97% on RA, Afebrile. W WBC Senna-Gen unremarkable. Creatinine 1.08, previously 1.12 on 03/12/17. Lactic Acid 2.4. INR 1.1. UA positive for UTI. Urine Drug Screen positive for Opiates and Barbiturates (on Fioricet/Morphine per review of home meds). CXR with no acute findings. CT Head negative. On exam, pt noted to have abdominal pain. CT Abd/Pelvis w/ dilated loops of small bowel likely ileus/partial obstruction. Review of Systems Except as stated in HPI: all other systems reviewed are Neg ROS: Unable to obtain secondary to AMS and postictal state. Past Family Social History Past Medical History PMH: Anxiety, Depression, HTN, CAD, Hyperlipidemia, Thyroid CA s/p Thyroidectomy, Seizure Disorder, Migraine, Chronic Back Pain s/p Morphine Pump Implantation and GERD Past Surgical History PAST SURGICAL HISTORY: Pain Pump Implantation, Cholecystectomy, Hysterectomy, Tonsillectomy, Thyroidectomy Allergies: Coded Allergies: cyclobenzaprine (Verified Allergy, Severe, hives, 03/12/17) paroxetine (Verified Allergy, Severe, rash, 03/12/17) sulfamethoxazole (Verified Allergy, Severe, rash, 03/12/17) trimethoprim (Verified Allergy, Intermediate, rash, 03/12/17) codeine (Verified Adverse Reaction, Severe, NAUSEA, 03/12/17) Family History PAST FAMILY HISTORY: Reviewed. No h/o DM or CAD Social History PAST SOCIAL HISTORY: Negative for alcohol, tobacco or drugs. Physical Exam Vital Signs Vital Signs Date Time Temp Pulse Resp B/P (MAP) Pulse Ox O2 Delivery O2 Flow Rate FiO2 05/16/17 18:42 97 18 186/90 (122) 100 Nasal Cannula 2.00 05/16/17 17:03 99 18 164/82 (109) 100 Nasal Cannula 2.00 05/16/17 13:09 98 Nasal Cannula 2.00 05/16/17 13:09 116 18 159/87 (111) 98 Nasal Cannula 2.00 05/16/17 13:09 98 Nasal Cannula 2.00 05/16/17 12:00 98.2 88 15 208/100 (136) 97 Physical Exam PE: GENERAL: Middle-aged white female in no acute distress. Post ictal, lethargic HEENT: PERRLA, EOMI. No scleral icterus or conjunctival pallor. No lid lag or facial droop. CARDIOVASCULAR: Regular rate and rhythm. No obvious murmurs to auscultation. No chest tenderness to palpation. RESPIRATORY: No obvious rhonchi or wheezing. Clear to auscultation. Breath sounds equal bilaterally. GASTROINTESTINAL: Abdomen soft, non-tender, nondistended. BS normal. MUSCULOSKELETAL: Extremities without clubbing, cyanosis, or edema. No obvious deformities. NEUROLOGICAL: Lethargic, postictal. No focal neurologic deficits. Moving both upper and lower extremities spontaneously. Laboratory Laboratory Tests Test 05/16/17 12:30 05/16/17 13:00 05/16/17 14:30 05/16/17 18:30 White Blood Count 9.9 Red Blood Count 4.25 Hemoglobin 12.3 Hematocrit 36.5 Mean Corpuscular Volume 85.8 Mean Corpuscular Hemoglobin 28.9 Mean Corpuscular Hemoglobin Concent 33.7 Red Cell Distribution Width 16.3 Platelet Count 219 Mean Platelet Volume 9.2 Neutrophils (%) (Auto) 78.8 Lymphocytes (%) (Auto) 9.0 Monocytes (%) (Auto) 11.6 Eosinophils (%) (Auto) 0.0 Basophils (%) (Auto) 0.6 Neutrophils # (Auto) 7.8 Lymphocytes # (Auto) 0.9 Monocytes # (Auto) 1.2 Eosinophils # (Auto) 0.0 Basophils # (Auto) 0.1 CBC Comment DIFF FINAL Differential Comment Lactic Acid Level 2.4 3.6 Ammonia 16 Prothrombin Time 11.4 Prothromb Time International Ratio 1.1 Activated Partial Thromboplast Time 22.6 Urine Color YELLOW Urine Turbidity CLEAR Urine pH 6.0 Urine Specific [place] 1.016 Urine Protein 100 Urine Glucose (UA) NEG Urine Ketones 10 Urine Occult Blood LARGE Urine Nitrite NEG Urine Bilirubin NEG Urine Urobilinogen LESS THAN 2.0 Urine Leukocyte Esterase SMALL Urine RBC 2 Urine WBC 3 Urine Squamous Epithelial Cells <1 Urine Bacteria RARE Urine Mucus FEW Microscopic Urinalysis Comment CATH-CULTURE IND Urine Opiates Screen POS Urine Barbiturates Screen POS Urine Amphetamines Screen NEG Urine Benzodiazepines Screen NEG Urine Cocaine Screen NEG Urine Cannabinoids Screen NEG Blood Urea Nitrogen 8 Creatinine 1.08 Random Glucose 177 Total Protein 8.1 Albumin 3.2 Calcium Level 8.4 Alkaline Phosphatase 72 Aspartate Amino Transf (AST/SGOT) 39 Alanine Aminotransferase (ALT/SGPT) 17 Total Bilirubin 0.5 Sodium Level 139 Potassium Level 3.1 Chloride Level 104 Carbon Dioxide Level 25.4 Anion Gap 10 Estimat Glomerular Filtration Rate 51 Total Creatine Kinase 962 Creatine Kinase MB 8.9 Creatine Kinase MB % 0.9 Troponin I 0.04 Thyroid Stimulating Hormone 3rd Gen 0.026 Date/Time Source Procedure Growth Status 05/16/17 13:00 Blood Peripheral Aerobic Blood Culture Pending Received 05/16/17 13:00 Blood Peripheral Anaerobic Blood Culture Pending Received 05/16/17 13:00 Urine Catheterized Urine Urine Culture Pending Worksheet Result Diagram: 05/16/17 1230 05/16/17 1430 Caprini VTE Risk Assessment Caprini VTE Risk Assessment: No/Low Risk (score <= 1) Caprini Risk Assessment Model Point Value = 1 Point Value = 2 Point Value = 3 Point Value = 5 Age 41-60 Minor surgery BMI > 25 kg/m2 Swollen legs Varicose veins or History of unexplained or recurrent spontaneous Oral contraceptives or hormone replacement Sepsis (< 1 month) Serious lung disease, including pneumonia (< 1 month) Abnormal pulmonary function Acute myocardial infarction Congestive heart failure (< 1 month) History of inflammatory bowel disease Medical patient at bed rest Age 61-74 Arthroscopic surgery Major open surgery (> 45 min) Laparoscopic surgery (> 45 min) Malignancy Confined to bed (> 72 hours) Immobilizing plaster cast Central venous access Age >= 75 History of VTE Family history of VTE Factor V Leiden Prothrombin [id number] Lupus anticoagulant Anticardiolipin antibodies Elevated serum homocysteine Heparin-induced thrombocytopenia Other congenital or acquired thrombophilia Stroke (< 1 month) Elective arthroplasty Hip, pelvis, or leg fracture Acute spinal cord injury (< 1 month) Prophylaxis Regimen Total Risk Factor Score Risk Level Prophylaxis Regimen 0-1 Low Early ambulation 2 Moderate Order ONE of the following: *Sequential Compression Device (SCD) *Heparin 5000 units SQ BID 3-4 Higher Order ONE of the following medications: *Heparin 5000 units SQ TID *Enoxaparin/Lovenox 40 mg SQ daily (WT < 150 kg, CrCl > 30 mL/min) *Enoxaparin/Lovenox 30 mg SQ daily (WT < 150 kg, CrCl > 10-29 mL/min) *Enoxaparin/Lovenox 30 mg SQ BID (WT < 150 kg, CrCl > 30 mL/min) AND/OR *Sequential Compression Device (SCD) 5 or more Highest Order ONE of the following medications: *Heparin 5000 units SQ TID (Preferred with Epidurals) *Enoxaparin/Lovenox 40 mg SQ daily (WT < 150 kg, CrCl > 30 mL/min) *Enoxaparin/Lovenox 30 mg SQ daily (WT < 150 kg, CrCl > 10-29 mL/min) *Enoxaparin/Lovenox 30 mg SQ BID (WT < 150 kg, CrCl > 30 mL/min) AND *Sequential Compression Device (SCD) Assessment and Plan Problem List: (1) Encephalopathy ICD Code: G93.40 - Encephalopathy, unspecified (2) SBO (small bowel obstruction) ICD Code: K56.609 - Unspecified intestinal obstruction, unspecified as to partial versus complete obstruction (3) Seizure ICD Code: R56.9 - Unspecified convulsions Status: Acute (4) Lactic acidosis ICD Code: E87.2 - Acidosis (5) UTI (urinary tract infection) ICD Code: N39.0 - Urinary tract infection, site not specified (6) Renal insufficiency ICD Code: N28.9 - Disorder of kidney and ureter, unspecified (7) Rhabdomyolysis ICD Code: M62.82 - Rhabdomyolysis Status: Acute Assessment and Plan A/P: 1. Encephalopathy: Likely multifactorial-medication related, UTI and acute seizure w/ post-ictal state. CT Head w/ no acute findings, images reviewed by me. Neuro checks q4h. Hold all home medications for the time being until mental status improves. 2. Seizure Disorder: w/ breakthrough seizure, seizure x2 while in ER, s/p Ativan 6mg, currently post-ictal/sedated. Neuro checks as above. Per review of records, previous EEG 07/13/16 w/ mild encephalopathy suggesting cortical irritability, improved from previous EEG. EEG 03/09/17 w/ no seizure activity. Unclear what medications she is on for seizure control. Seizure Precautions, Ativan prn, Consult Neurology for further recommendations. Attempt to obtain up to date medication list. 3. SBO: CT Abd/Pelvis w/ dilated loops of small bowel, likely ileus/ obstruction, images reviewed by me. No nausea/vomiting. NPO, IVF, consult Gen Sx for further evaluation, unlikely surgical intervention. 4. Lactic Acidosis: Lactate 2.4 repeat 3.6 after seizure activity. Likely secondary to dehydration/UTI compounded by seizure. IVF for hydration. Repeat lactate for trend. No evidence of sepsis at this time. 5. UTI: U/a w/ UTI. Start IV Rocephin, IVF for hydration, follow up urine cultures. 6. Renal Insufficiency: Chronic. Creatinine 1.08, previously 1.12 on . IVF for hydration, repeat labs in a.m. 7. Rhabdomyolysis: CPK 962. Likely secondary to seizure activity/ dehydration. Check serial CPK for trend, IVF. 8. DVT Prophylaxis: SCD/teds. 9. Social work for DC planning as needed. 10. Case discussed at length with ER physician, lab/records/imaging reviewed by me. Physician Certification 2 Midnight Certification Type: Admission for Inpatient Services Order for Inpatient Services The services are ordered in accordance with Medicare regulations or non- Medicare payer requirements, as applicable. In the case of services not specified as inpatient-only, they are appropriately provided as inpatient services in accordance with the 2-midnight benchmark. Estimated LOS (days): 2 days is the estimated time the patient will need to remain in the hospital, assuming treatment plan goals are met and no additional complications. Post-Hospital Plan: Not yet determined Angella Viveros MD May 16, 2017 19:18
[2017-05-16] MEDS: cefTRIAXone INJ 1,000 MG in SODIUM CHLORIDE 0.9% INJ 100 ML IV SCH (20:00)
[2017-05-16 20:56] VITALS: BP 180/99; PULSE 91; RESP 16; O2SAT 96
[2017-05-16] MEDS: DOCUSATE SODIUM 50 MG/SENNA 8.6 MG TAB PO SCH (21:00)
[2017-05-16] MEDS: SODIUM CHLORIDE 0.9% FLUSH 10 ML FLUSH IV FLUSH SCH (21:00)
[2017-05-16 21:22] VITALS: BP 182/97; PULSE 104; RESP 18; TEMP 101.7; O2SAT 91
[2017-05-16] MEDS ORDERED: ENALAPRILAT 2.5 MG/2 ML VIAL IV PUSH ONE (23:00)
[2017-05-16] MEDS ORDERED: ACETAMINOPHEN 1000 MG/100 ML 100 ML IV ONE (23:00)
[2017-05-17 01:45] VITALS: BP 180/91; PULSE 62; RESP 18; TEMP 102.4; O2SAT 95
[2017-05-17 01:51] LABS: AUTOMATED NEUTROPHIL # 13.1 TH/MM3 (1.8-7.7); BASOPHIL # 0.1 TH/MM3 (0-0.2); BASOPHIL % 0.5 % (0.0-2.0); HEMATOCRIT 41.1 % (35.0-46.0); HEMOGLOBIN 13.8 GM/DL (11.6-15.3); LYMPH % 8.5 % (9.0-44.0); LYMPHOCYTE # 1.4 TH/MM3 (1.0-4.8); MEAN CELL VOLUME 85.1 FL (80.0-100.0); MEAN CORPUSCULAR HEMOGLOBIN 28.5 PG (27.0-34.0); MEAN CORPUSCULAR HGB CONC 33.5 % (32.0-36.0); MEAN PLATELET VOLUME 8.8 FL (7.0-11.0); MONO % 12.4 % (0.0-8.0); MONOCYTE # 2.1 TH/MM3 (0-0.9); NEUT % 78.6 % (16.0-70.0); PLATELET COUNT 265 TH/MM3 (150-450); RED BLOOD COUNT 4.83 MIL/MM3 (4.00-5.30); RED CELL DISTRIBUTION WIDTH 16.8 % (11.6-17.2); WHITE BLOOD COUNT 16.7 TH/MM3 (4.0-11.0)
[2017-05-17 02:25] LABS: ALBUMIN 3.2 GM/DL (3.4-5.0); ALKALINE PHOSPHATASE 73 U/L (45-117); ALT (GPT) 18 U/L (10-53); AST (GOT) 55 U/L (15-37); BICARBONATE 26.5 MEQ/L (21.0-32.0); BLOOD UREA NITROGEN 7 MG/DL (7-18); CALCIUM 8.3 MG/DL (8.5-10.1); CHLORIDE 104 MEQ/L (98-107); CREATININE 1.09 MG/DL (0.50-1.00); GLOMERULAR FILTRATION RATE 51 ML/MIN (>89); GLUCOSE,RANDOM 154 MG/DL (74-106); SODIUM (NA) 140 MEQ/L (136-145); TOTAL BILIRUBIN ADULT 0.7 MG/DL (0.2-1.0); TROPONIN I 0.11 NG/ML (0.02-0.05)
[2017-05-17] MEDS: POTASSIUM CHLOR 20 MEQ PREMIX 100 ML IV SCH ×2 (02:50→05:04)
[2017-05-17] MEDS: SODIUM CHLOR 0.9% 1000 ML INJ 1,000 ML IV SCH ×4 (04:17→19:06)
[2017-05-17 05:30] VITALS: PULSE 89; RESP 28; TEMP 101.3; O2SAT 96
[2017-05-17 08:00] VITALS: BP 148/87; PULSE 80; RESP 28; TEMP 101.1; O2SAT 97
[2017-05-17] MEDS: DOCUSATE SODIUM 50 MG/SENNA 8.6 MG TAB PO SCH ×2 (09:00→21:00)
[2017-05-17] MEDS: SODIUM CHLORIDE 0.9% FLUSH 10 ML FLUSH IV FLUSH SCH ×2 (09:00→21:00)
--- NOTE | 2017-05-17 09:09 | RADRPT ---
EXAM DATE/TIME: 05/17/2017 08:17 [place] COMPARISON: CT ABDOMEN & PELVIS W CONTRAST, May 16, 2017, 17:46. INDICATIONS : Ileus. MEDICAL HISTORY : None. SURGICAL HISTORY : None. ENCOUNTER: Initial ACUITY: 2 days PAIN SCORE: Non-responsive. LOCATION: Abdomen. FINDINGS: Multiple loops of slightly distended gas filled small bowel throughout the abdomen. Overall, there is slightly improved gaseous distention. Air is noted throughout the colon extending to the rectum. No gross pneumatosis or free air. Remainder of exam is unchanged. CONCLUSION: 1. Slightly improved adynamic ileus versus partial small bowel obstruction bowel gas pattern. Leonides Ceja MD on May 17, 2017 at 9:05 Board Certified Radiologist. This report was verified electronically.
[2017-05-17] MEDS ORDERED: ACETAMINOPHEN 650 MG SUPP RECTAL PRN (10:15)
[2017-05-17] MEDS: MORPHINE SULFATE 4 MG/ML INJ IV PUSH PRN ×3 (10:26→19:47)
[2017-05-17] MEDS: LABETALOL HCL 100 MG/20 ML VIAL IV PUSH PRN ×2 (10:26→19:41)
[2017-05-17 10:52] LABS: AUTOMATED NEUTROPHIL # 7.2 TH/MM3 (1.8-7.7); BASOPHIL % 0.2 % (0.0-2.0); HEMATOCRIT 36.9 % (35.0-46.0); HEMOGLOBIN 12.5 GM/DL (11.6-15.3); LYMPH % 14.1 % (9.0-44.0); LYMPHOCYTE # 1.4 TH/MM3 (1.0-4.8); MEAN CORPUSCULAR HEMOGLOBIN 28.9 PG (27.0-34.0); MEAN CORPUSCULAR HGB CONC 33.9 % (32.0-36.0); MEAN PLATELET VOLUME 8.3 FL (7.0-11.0); MONO % 13.6 % (0.0-8.0); MONOCYTE # 1.4 TH/MM3 (0-0.9); NEUT % 72.1 % (16.0-70.0); PLATELET COUNT 203 TH/MM3 (150-450); RED BLOOD COUNT 4.33 MIL/MM3 (4.00-5.30); RED CELL DISTRIBUTION WIDTH 16.9 % (11.6-17.2)
[2017-05-17] MEDS: hydrALAZINE HCL 20 MG/ML VIAL IV PUSH PRN ×3 (11:09→20:53)
[2017-05-17 11:22] LABS: ALKALINE PHOSPHATASE 66 U/L (45-117); ALT (GPT) 22 U/L (10-53); AST (GOT) 57 U/L (15-37); BICARBONATE 27.6 MEQ/L (21.0-32.0); BLOOD UREA NITROGEN 7 MG/DL (7-18); CALCIUM 7.9 MG/DL (8.5-10.1); CHLORIDE 106 MEQ/L (98-107); CREATININE 0.93 MG/DL (0.50-1.00); FREE T4 0.97 NG/DL (0.76-1.46); GLOMERULAR FILTRATION RATE 61 ML/MIN (>89); GLUCOSE,RANDOM 136 MG/DL (74-106); MAGNESIUM 1.8 MG/DL (1.5-2.5); PHOSPHORUS 2.4 MG/DL (2.5-4.9); SODIUM (NA) 142 MEQ/L (136-145); TOTAL BILIRUBIN ADULT 0.7 MG/DL (0.2-1.0); TOTAL PROTEIN 7.6 GM/DL (6.4-8.2)
[2017-05-17 11:34] LABS: TROPONIN I 0.1 NG/ML (0.02-0.05)
--- NOTE | 2017-05-17 11:38 | EKG ---
Date Performed: 05/16/2017 Time Performed: 14:17:24 PTAGE: 62 years EKG: SINUS TACHYCARDIA WITH FIRST DEGREE AV BLOCK WITH OCCASIONAL ECTOPIC PREMATURE COMPLEXES MO DERATE ST DEPRESSION Compared to prior tracing nonspecific ST segment depression is now present ABNOR MAL ECG PREVIOUS TRACING : 03/12/2017 11.18 DOCTOR: Taiwo Sosa Interpretating Date/Time 05/17/2017 11:37:35
[2017-05-17 12:00] VITALS: BP 177/98; PULSE 104; RESP 30; TEMP 101.7; O2SAT 97
[2017-05-17] MEDS ORDERED: SODIUM PHOSPHATE INJ 30 MMOL in SODIUM CHLOR 0.9% 250 ML INJ 240 ML IV PRN (12:15)
[2017-05-17] MEDS ORDERED: POTASSIUM PHOSPHATE INJ 30 MMOL in SODIUM CHLOR 0.9% 250 ML INJ 250 ML IV PRN (12:15)
[2017-05-17] MEDS ORDERED: MAGNESIUM OXIDE 400 MG TAB PO PRN (12:15)
[2017-05-17] MEDS ORDERED: MAGNESIUM SULFATE INJ 4 GM in SODIUM CHLORIDE 0.9% INJ 92 ML IV PRN (12:15)
[2017-05-17] MEDS ORDERED: POTASSIUM CHLORIDE 25 MEQ EFFERVESCENT TAB PO PRN (12:15)
[2017-05-17] MEDS ORDERED: POTASSIUM CHLOR 20 MEQ PREMIX 100 ML IV PRN (12:15)
[2017-05-17] MEDS ORDERED: POTASSIUM PHOSPHATE MONOBASIC 500 MG TAB PO PRN (12:15)
[2017-05-17] MEDS ORDERED: POTASSIUM CHLOR 40 MEQ PREMIX 100 ML IV PRN ×2 (12:15)
[2017-05-17] MEDS ORDERED: MAGNESIUM SULFATE INJ 2 GM in SODIUM CHLORIDE 0.9% INJ 96 ML IV PRN (12:15)
[2017-05-17] MEDS ORDERED: POTASSIUM PHOSPHATE MONOBASIC 500 MG TAB PO/TUBE PRN (12:15)
[2017-05-17] MEDS: POTASSIUM CHLOR 20 MEQ PREMIX 100 ML IV PRN ×4 (12:44→19:06)
[2017-05-17 16:00] VITALS: BP 167/91; PULSE 114; RESP 20; TEMP 100; O2SAT 98
[2017-05-17] MEDS ORDERED: ACETAMINOPHEN 1000 MG/100 ML 100 ML IV PRN (16:15)
[2017-05-17 16:43] LABS: HEMOGLOBIN A1C 5.7 % (4.3-6.0)
--- NOTE | 2017-05-17 16:44 | PD.CONS ---
cc: Zia Huntley MD [facility] Service CONSULTATION NOTE FOR SURGICAL ATTENDING, DR. ZIA HUNTLEY General Surgery Consult Requested By Dr. Jameson Reason for Consult SBO vs ileus Primary Care Physician Unknown History of Present Illness This is a 62-year-old female with a past medical history of anxiety, depression , hypertension, CAD, dyslipidemia, thyroid cancer, migraines, chronic back pain incurred. The patient was brought in to the Emergency Department by her family and a neighbor for evaluation of AMS. An urinalysis was complete which is indicates an urinary tract infection. Per the ED report, the patient had some bilious vomit and a CT abdomen and pelvis was obtained which shows dilated loops of small bowel and a question of ileus versus partial small bowel obstruction. The patient does have an elevated white blood cell count. The patient's toxicology is positive for opiates and barbiturates. The patient is a poor historian and much of the details of the patient's past medical history and history of present illness is obtained from the sister, Flavia, at the bedside. A General Surgery consultation has been requested. Review of Systems ROS Limitations: Clinical Condition Past Family Social History Past Medical History Anxiety Depression Hypertension CAD Dyslipidemia Thyroid cancer Migraines Chronic back pain GERD Past Surgical History Thyroidectomy Laparoscopic cholecystectomy Hysterectomy Tonsillectomy Pain pump insertion Reported Medications Ceturizine Carapres Norvasc Aspirin Gabapentin Trazodone Seroquel Potassium replacement Probiotic Zofran Carafate Protonix Reglan Levothyroxine Fioricet Allergies: Coded Allergies: cyclobenzaprine (Verified Allergy, Severe, hives, 03/12/17) paroxetine (Verified Allergy, Severe, rash, 03/12/17) sulfamethoxazole (Verified Allergy, Severe, rash, 03/12/17) trimethoprim (Verified Allergy, Intermediate, rash, 03/12/17) codeine (Verified Adverse Reaction, Severe, NAUSEA, 03/12/17) Active Ordered Medications Current Medications Medications (Trade) Dose Ordered Sig/Obudlia Route Start Time Stop Time Status Last Admin (Ativan Inj) 1 mg Q5M PRN IV PUSH 05/16/17 19:15 Sodium Chloride 1,000 ml @ 100 mls/hr Q10H IV 05/16/17 19:06 05/17/17 07:24 (NS Flush) 2 ml UNSCH PRN IV FLUSH 05/16/17 19:15 (NS Flush) 2 ml BID IV FLUSH 05/16/17 21:00 05/17/17 09:00 (Zofran Inj) 4 mg Q6H PRN IVP 05/16/17 19:15 (Anahi-Colace) 1 tab BID PO 05/16/17 21:00 (Milk Of Magnesia Liq) 30 ml Q12H PRN PO 05/16/17 19:15 (Senokot) 17.2 mg Q12H PRN PO 05/16/17 19:15 (Dulcolax Supp) 10 mg DAILY PRN RECTAL 05/16/17 19:15 (Lactulose Liq) 30 ml DAILY PRN PO 05/16/17 19:15 Ceftriaxone Sodium 1000 mg/ Sodium Chloride 100 ml @ 200 mls/hr Q24H IV 05/16/17 20:00 (Trandate Inj) 10 mg Q6H PRN IV PUSH 05/17/17 03:00 05/17/17 10:26 (Tylenol Supp) 650 mg Q6H PRN RECTAL 05/17/17 10:15 05/17/17 10:27 (Morphine Inj) 2 mg Q3H PRN IV PUSH 05/17/17 10:15 (Morphine Inj) 4 mg Q3H PRN IV PUSH 05/17/17 10:15 05/17/17 14:45 (Apresoline Inj) 20 mg Q4H PRN IV PUSH 05/17/17 10:15 05/17/17 14:45 Potassium Chloride 100 ml @ 50 mls/hr Q2H PRN IV 05/17/17 12:15 Potassium Chloride 100 ml @ 50 mls/hr Q2H PRN IV 05/17/17 12:15 05/17/17 15:53 (K-Lyte Cl Eff) 50 meq UNSCH PRN PO 05/17/17 12:15 Potassium Chloride 100 ml @ 25 mls/hr UNSCH PRN IV 05/17/17 12:15 Potassium Chloride 100 ml @ 50 mls/hr Q2H PRN IV 05/17/17 12:15 Magnesium Sulfate 4 gm/Sodium Chloride 100 ml @ 50 mls/hr UNSCH PRN IV 05/17/17 12:15 (Mag-Ox) 800 mg UNSCH PRN PO 05/17/17 12:15 Magnesium Sulfate 2 gm/Sodium Chloride 100 ml @ 50 mls/hr UNSCH PRN IV 05/17/17 12:15 (K-Phos) 2,000 mg Q4H PRN PO 05/17/17 12:15 Sodium Phosphate 30 mmol/Sodium Chloride 250 ml @ 42 mls/hr UNSCH PRN IV 05/17/17 12:15 (K-Phos) 2,000 mg UNSCH PRN PO/TUBE 05/17/17 12:15 Potassium Phosphate 30 mmol/ Sodium Chloride 260 ml @ 42 mls/hr UNSCH PRN IV 05/17/17 12:15 Acetaminophen 100 ml @ 400 mls/hr Q6H PRN IV 05/17/17 16:15 Family History Noncontributory Social History Per the sister Flavia the patient denies any tobacco use, EtOH use or illicit drugs. The patient does have a morphine implanted pain pump which is scheduled to be replaced next month. The patient does not drive. The patient is able to ambulate independently. The patient lives with her 82-year-old mother. Physical Exam Vital Signs Vital Signs Date Time Temp Pulse Resp B/P (MAP) Pulse Ox O2 Delivery O2 Flow Rate FiO2 05/17/17 16:00 100.0 114 20 167/91 (116) 98 05/17/17 12:00 101.7 104 30 177/98 (124) 97 05/17/17 08:00 101.1 80 28 148/87 (107) 97 05/17/17 05:30 101.3 89 28 96 05/17/17 01:45 102.4 62 18 180/91 (120) 95 05/16/17 23:50 Nasal Cannula 2.00 05/16/17 21:22 101.7 104 18 182/97 (125) 91 05/16/17 21:00 05/16/17 20:56 91 16 180/99 (126) 96 Room Air 05/16/17 18:42 97 18 186/90 (122) 100 Nasal Cannula 2.00 05/16/17 17:03 99 18 164/82 (109) 100 Nasal Cannula 2.00 Physical Exam GENERAL: 62 year old female resting in bed sleeping; difficult to arouse. SKIN: Warm and dry. Red [place] on BUE forearms. HEAD: Atraumatic. Normocephalic. EYES: Pupils equal and round. No scleral icterus. No injection or drainage. ENT: No nasal bleeding or discharge. Mucous membranes pink and moist. NECK: Trachea midline. CARDIOVASCULAR: Regular rate and rhythm. RESPIRATORY: No accessory muscle use. Clear to auscultation. Breath sounds equal bilaterally. GASTROINTESTINAL: Abdomen soft, non-tender, nondistended. Very faint well- healed laparoscopic incisions. No visible hernias. MUSCULOSKELETAL: Extremities without clubbing, cyanosis, or edema. No obvious deformities. NEUROLOGICAL: Difficult to examine; patient is lethargic and difficult to arouse. Follows one step commands and able to answer yes and no questions. Eyes closed. PSYCHIATRIC: Difficult to examine. Laboratory Laboratory Tests Test 05/16/17 18:30 05/17/17 01:42 05/17/17 10:36 Lactic Acid Level 3.6 1.6 White Blood Count 16.7 10.0 Red Blood Count 4.83 4.33 Hemoglobin 13.8 12.5 Hematocrit 41.1 36.9 Mean Corpuscular Volume 85.1 85.0 Mean Corpuscular Hemoglobin 28.5 28.9 Mean Corpuscular Hemoglobin Concent 33.5 33.9 Red Cell Distribution Width 16.8 16.9 Platelet Count 265 203 Mean Platelet Volume 8.8 8.3 Neutrophils (%) (Auto) 78.6 72.1 Lymphocytes (%) (Auto) 8.5 14.1 Monocytes (%) (Auto) 12.4 13.6 Eosinophils (%) (Auto) 0.0 0.0 Basophils (%) (Auto) 0.5 0.2 Neutrophils # (Auto) 13.1 7.2 Lymphocytes # (Auto) 1.4 1.4 Monocytes # (Auto) 2.1 1.4 Eosinophils # (Auto) 0.0 0.0 Basophils # (Auto) 0.1 0.0 CBC Comment DIFF FINAL DIFF FINAL Differential Comment Blood Urea Nitrogen 7 7 Creatinine 1.09 0.93 Random Glucose 154 136 Total Protein 8.0 7.6 Albumin 3.2 3.0 Calcium Level 8.3 7.9 Alkaline Phosphatase 73 66 Aspartate Amino Transf (AST/SGOT) 55 57 Alanine Aminotransferase (ALT/SGPT) 18 22 Total Bilirubin 0.7 0.7 Sodium Level 140 142 Potassium Level 2.8 2.8 Chloride Level 104 106 Carbon Dioxide Level 26.5 27.6 Anion Gap 10 8 Estimat Glomerular Filtration Rate 51 61 Total Creatine Kinase 1318 1284 Creatine Kinase MB 8.1 7.0 Creatine Kinase MB % 0.6 0.5 Troponin I 0.11 0.10 Phosphorus Level 2.4 Magnesium Level 1.8 Free Thyroxine 0.97 Thyroid Stimulating Hormone 3rd Gen 0.084 Date/Time Source Procedure Growth Status 05/16/17 13:00 Blood Peripheral Aerobic Blood Culture - Preliminary NO GROWTH IN 1 DAY Resulted 05/16/17 13:00 Blood Peripheral Anaerobic Blood Culture - Preliminary NO GROWTH IN 1 DAY Resulted 05/16/17 13:00 Urine Catheterized Urine Urine Culture - Preliminary NO GROWTH IN 24 HOURS. Resulted Result Diagram: 05/17/17 1036 05/17/17 1036 Imaging Last 48 hours Impressions Abdomen X-Ray 05/17/17 0000 Signed Impressions: Service Date/Time: Wednesday, May 17, 2017 08:17 - CONCLUSION: 1. Slightly improved adynamic ileus versus partial small bowel obstruction bowel gas pattern. Leonides Ceja MD Head CT 05/16/17 1216 Signed Impressions: Service Date/Time: Tuesday, May 16, 2017 13:50 - CONCLUSION: Intracranially negative. Sinus disease as described above with an air-fluid level right maxillary sinus suggesting acute sinusitis Major Alfred MD Chest X-Ray 05/16/17 1216 Signed Impressions: Service Date/Time: Tuesday, May 16, 2017 14:05 - CONCLUSION: No acute disease. No significant change has occurred. Major Alfred MD Abdomen/Pelvis CT 05/16/17 0000 Signed Impressions: Service Date/Time: Tuesday, May 16, 2017 17:46 - CONCLUSION: 1. Multiple dilated loops of small bowel down to the right lower quadrant without significant air-fluid levels. No abdominal mass seen. Different considerations include ileus and partial obstruction. 2. Stable appearance to multiple sigmoid diverticula without radiographic evidence of diverticulitis. 3. 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 Arnaud Alan MD Assessment and Plan Assessment and Plan 62 year old female with AMS; UTI; ileus secondary to UTI -KUB shows improvement -Continue IV hydration -Antibiotics for UTI -Ofirmev PRN for fevers -Once more awake---okay for sips of clear liquids -Patient had large BM this morning; unlikely obstruction but likely ileus secondary to UTI -Will repeat KUB in AM -Discussed with Flavia (sister) at bedside -Will plan for nonoperative treatment -Thank you for this consult; We will continue to follow Discussed Condition With Dr. Yuko Alejandro (sister) Attending Statement NOTE FOR SURGICAL ATTENDING, DR. ZIA HUNTLEY Patient seen in the intensive care unit Still confused Nurses report numerous bowel movements Abdomen soft I suspect she had an ileus from her urinary tract infection possibly urosepsis causing her mental status changes. No surgical intervention at this time Correct electrolyte derangements I agree with above assessment and plan. The exam, history, and the medical decision-making described in the above note were completed with the assistance of the mid-level provider. I reviewed and agree with the findings presented. I attest that I had a [id number] encounter with the patient on the same day, and personally performed and documented my assessment and findings in the medical record. The following services were provided during this hospital visit: Chart data review, vital sign assessments/reviewing monitor data Review of consultations notes if present. Medication orders/review and/or management Ordering and/or reviewing lab tests Ordering and/or interpreting/reviewing x-rays and/or diagnostic studies Care of the patient and discussion of the patient with the care team Documentation time To help prompt me to consider important information that might be impacting today's encounter and assessment, information from prior notes written by myself or my colleagues may have been "brought forward/copy and pasted" into today's note. Tita Fox May 17, 2017 16:44 Zia Huntley MD May 17, 2017 18:29
--- NOTE | 2017-05-17 17:50 | HHI.PR ---
Subjective Remarks This is a 62-year-old female with a PMH of Anxiety, Depression, HTN, CAD, Hyperlipidemia, Thyroid CA s/p Thyroidectomy, Seizure Disorder, Migraine, Chronic Back Pain s/p Morphine Pump Implantation and GERD who was brought to the ER secondary to AMS. Patient very poor historian, unable to provide history. Per report, pt's Mother noted pt to be more confused, which she believes is secondary to her pain medication. While in ER, pt w/ seizure x2 requiring several doses of Ativan. Per review of records, pt w/ h/o seizure disorder, unclear what medications she takes. On arrival, BP 208/100, HR 88, O2 sat 97% on RA, Afebrile. W WBC Senna-Gen unremarkable. Creatinine 1.08, previously 1.12 on 03/12/17. Lactic Acid 2.4. INR 1.1. UA positive for UTI. Urine Drug Screen positive for Opiates and Barbiturates (on Fioricet/Morphine per review of home meds). CXR with no acute findings. CT Head negative. On exam, pt noted to have abdominal pain. CT Abd/Pelvis w/ dilated loops of small bowel likely ileus/partial obstruction. 2-12 seen by general surgery had bowel movement today suspected ileus still remains confused dw RN AND PT AM LABS PT AND OT ELECTROLYTE PROTOCOLS SOFT RESTRAINTS FOR HER SAFETY Objective Vitals Vital Signs Date Time Temp Pulse Resp B/P (MAP) Pulse Ox O2 Delivery O2 Flow Rate FiO2 05/17/17 16:00 100.0 114 20 167/91 (116) 98 05/17/17 12:00 101.7 104 30 177/98 (124) 97 05/17/17 08:00 101.1 80 28 148/87 (107) 97 05/17/17 05:30 101.3 89 28 96 05/17/17 01:45 102.4 62 18 180/91 (120) 95 05/16/17 23:50 Nasal Cannula 2.00 05/16/17 21:22 101.7 104 18 182/97 (125) 91 05/16/17 21:00 05/16/17 20:56 91 16 180/99 (126) 96 Room Air 05/16/17 18:42 97 18 186/90 (122) 100 Nasal Cannula 2.00 I/O 2/02/2005/16/17 05/16/17 05/17/17 05/17/17 05/17/17 06:59 14:59 22:59 06:59 14:59 22:59 Intake Total 200 ml 1000 ml 200 ml Balance 200 ml 1000 ml 200 ml Intake IV Total 200 ml 1000 ml 200 ml # Bowel Movements 0 Result Diagram: 05/17/17 1036 05/17/17 1036 Other Results Laboratory Tests Test 05/16/17 12:30 05/16/17 13:00 05/16/17 14:30 05/16/17 18:30 White Blood Count 9.9 TH/MM3 Red Blood Count 4.25 MIL/MM3 Hemoglobin 12.3 GM/DL Hematocrit 36.5 % Mean Corpuscular Volume 85.8 FL Mean Corpuscular Hemoglobin 28.9 PG Mean Corpuscular Hemoglobin Concent 33.7 % Red Cell Distribution Width 16.3 % Platelet Count 219 TH/MM3 Mean Platelet Volume 9.2 FL Neutrophils (%) (Auto) 78.8 % Lymphocytes (%) (Auto) 9.0 % Monocytes (%) (Auto) 11.6 % Eosinophils (%) (Auto) 0.0 % Basophils (%) (Auto) 0.6 % Neutrophils # (Auto) 7.8 TH/MM3 Lymphocytes # (Auto) 0.9 TH/MM3 Monocytes # (Auto) 1.2 TH/MM3 Eosinophils # (Auto) 0.0 TH/MM3 Basophils # (Auto) 0.1 TH/MM3 CBC Comment DIFF FINAL Differential Comment Lactic Acid Level 2.4 mmol/L 3.6 mmol/L Ammonia 16 MCMOL/L Prothrombin Time 11.4 SEC Prothromb Time International Ratio 1.1 RATIO Activated Partial Thromboplast Time 22.6 SEC Urine Color YELLOW Urine Turbidity CLEAR Urine pH 6.0 Urine Specific [place] 1.016 Urine Protein 100 mg/dL Urine Glucose (UA) NEG mg/dL Urine Ketones 10 mg/dL Urine Occult Blood LARGE Urine Nitrite NEG Urine Bilirubin NEG Urine Urobilinogen LESS THAN 2.0 MG/DL Urine Leukocyte Esterase SMALL Urine RBC 2 /hpf Urine WBC 3 /hpf Urine Squamous Epithelial Cells <1 /hpf Urine Bacteria RARE /hpf Urine Mucus FEW /lpf Microscopic Urinalysis Comment CATH-CULTURE IND Urine Opiates Screen POS Urine Barbiturates Screen POS Urine Amphetamines Screen NEG Urine Benzodiazepines Screen NEG Urine Cocaine Screen NEG Urine Cannabinoids Screen NEG Blood Urea Nitrogen 8 MG/DL Creatinine 1.08 MG/DL Random Glucose 177 MG/DL Total Protein 8.1 GM/DL Albumin 3.2 GM/DL Calcium Level 8.4 MG/DL Alkaline Phosphatase 72 U/L Aspartate Amino Transf (AST/SGOT) 39 U/L Alanine Aminotransferase (ALT/SGPT) 17 U/L Total Bilirubin 0.5 MG/DL Sodium Level 139 MEQ/L Potassium Level 3.1 MEQ/L Chloride Level 104 MEQ/L Carbon Dioxide Level 25.4 MEQ/L Anion Gap 10 MEQ/L Estimat Glomerular Filtration Rate 51 ML/MIN Total Creatine Kinase 962 U/L Creatine Kinase MB 8.9 NG/ML Creatine Kinase MB % 0.9 % Troponin I 0.04 NG/ML Thyroid Stimulating Hormone 3rd Gen 0.026 uIU/ML Phenobarbital Level LESS THAN 2.1 MCG/ML Test 05/17/17 01:42 05/17/17 06:40 05/17/17 10:36 White Blood Count 16.7 TH/MM3 10.0 TH/MM3 Red Blood Count 4.83 MIL/MM3 4.33 MIL/MM3 Hemoglobin 13.8 GM/DL 12.5 GM/DL Hematocrit 41.1 % 36.9 % Mean Corpuscular Volume 85.1 FL 85.0 FL Mean Corpuscular Hemoglobin 28.5 PG 28.9 PG Mean Corpuscular Hemoglobin Concent 33.5 % 33.9 % Red Cell Distribution Width 16.8 % 16.9 % Platelet Count 265 TH/MM3 203 TH/MM3 Mean Platelet Volume 8.8 FL 8.3 FL Neutrophils (%) (Auto) 78.6 % 72.1 % Lymphocytes (%) (Auto) 8.5 % 14.1 % Monocytes (%) (Auto) 12.4 % 13.6 % Eosinophils (%) (Auto) 0.0 % 0.0 % Basophils (%) (Auto) 0.5 % 0.2 % Neutrophils # (Auto) 13.1 TH/MM3 7.2 TH/MM3 Lymphocytes # (Auto) 1.4 TH/MM3 1.4 TH/MM3 Monocytes # (Auto) 2.1 TH/MM3 1.4 TH/MM3 Eosinophils # (Auto) 0.0 TH/MM3 0.0 TH/MM3 Basophils # (Auto) 0.1 TH/MM3 0.0 TH/MM3 CBC Comment DIFF FINAL DIFF FINAL Differential Comment Blood Urea Nitrogen 7 MG/DL 7 MG/DL Creatinine 1.09 MG/DL 0.93 MG/DL Random Glucose 154 MG/DL 136 MG/DL Total Protein 8.0 GM/DL 7.6 GM/DL Albumin 3.2 GM/DL 3.0 GM/DL Calcium Level 8.3 MG/DL 7.9 MG/DL Alkaline Phosphatase 73 U/L 66 U/L Aspartate Amino Transf (AST/SGOT) 55 U/L 57 U/L Alanine Aminotransferase (ALT/SGPT) 18 U/L 22 U/L Total Bilirubin 0.7 MG/DL 0.7 MG/DL Sodium Level 140 MEQ/L 142 MEQ/L Potassium Level 2.8 MEQ/L 2.8 MEQ/L Chloride Level 104 MEQ/L 106 MEQ/L Carbon Dioxide Level 26.5 MEQ/L 27.6 MEQ/L Anion Gap 10 MEQ/L 8 MEQ/L Estimat Glomerular Filtration Rate 51 ML/MIN 61 ML/MIN Lactic Acid Level 1.6 mmol/L Total Creatine Kinase 1318 U/L 1284 U/L Creatine Kinase MB 8.1 NG/ML 7.0 NG/ML Creatine Kinase MB % 0.6 % 0.5 % Troponin I 0.11 NG/ML 0.10 NG/ML Phosphorus Level 2.4 MG/DL Magnesium Level 1.8 MG/DL Free Thyroxine 0.97 NG/DL Thyroid Stimulating Hormone 3rd Gen 0.084 uIU/ML Imaging Last Impressions Abdomen X-Ray 05/17/17 0000 Signed Impressions: Service Date/Time: Wednesday, May 17, 2017 08:17 - CONCLUSION: 1. Slightly improved adynamic ileus versus partial small bowel obstruction bowel gas pattern. Leonides Ceja MD Head CT 05/16/17 1216 Signed Impressions: Service Date/Time: Tuesday, May 16, 2017 13:50 - CONCLUSION: Intracranially negative. Sinus disease as described above with an air-fluid level right maxillary sinus suggesting acute sinusitis Major Alfred MD Chest X-Ray 05/16/17 1216 Signed Impressions: Service Date/Time: Tuesday, May 16, 2017 14:05 - CONCLUSION: No acute disease. No significant change has occurred. Major Alfred MD Abdomen/Pelvis CT 05/16/17 0000 Signed Impressions: Service Date/Time: Tuesday, May 16, 2017 17:46 - CONCLUSION: 1. Multiple dilated loops of small bowel down to the right lower quadrant without significant air-fluid levels. No abdominal mass seen. Different considerations include ileus and partial obstruction. 2. Stable appearance to multiple sigmoid diverticula without radiographic evidence of diverticulitis. 3. 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 Arnaud Alan MD Objective Remarks GENERAL: AWAKE ALERT AND QUITE CONFUSED IN SOFT RESTRAINTS FOR HER PROTECTION SKIN: Warm and dry. HEAD: Atraumatic. Normocephalic. EYES: Pupils equal and round. No scleral icterus. No injection or drainage. EOMI ENT: No nasal bleeding or discharge. Mucous membranes pink and moist. TONGUE MIDLINE NECK: Trachea midline. No JVD. SUPPLE CARDIOVASCULAR: Regular rate and rhythm. S1, S2 NO S3 OR S4 NO HEAVE OR THRILL RESPIRATORY: No accessory muscle use. Clear to auscultation. Breath sounds equal bilaterally. GASTROINTESTINAL: Abdomen soft, non-tender, SOME DISTENTION. Hepatic and splenic margins not palpable. HYPOACTIVE BOWEL SOUNDS OBESE MUSCULOSKELETAL: Extremities without clubbing, cyanosis, PLUS 1 TO 2 LE EDEMA No obvious deformities. NEUROLOGICAL: Awake and alert. No obvious cranial nerve deficits. Motor grossly within normal limits. 4 out of 5 muscle strength in the arms and legs. ABNormal speech. PSYCHIATRIC: INAppropriate mood and affect; insight and judgment ABnormal. Medications and IVs Current Medications Sodium Chloride 1,000 ml @ 999 mls/hr BOLUS ONCE IV Last administered on 05/16at 12:30; Start 05/16/17 at 12:30; Stop 05/16/17 at 13:30; Status DC Lorazepam (Ativan Inj) 2 mg STK-MED ONCE .ROUTE ; Start 05/16/17 at 12:33; Stop 05/16/17 at 12:34; Status DC Lorazepam (Ativan Inj) 2 mg STK-MED ONCE .ROUTE ; Start 05/16/17 at 12:34; Stop 05/16/17 at 12:35; Status DC Lorazepam (Ativan Inj) 2 mg STK-MED ONCE .ROUTE ; Start 05/16/17 at 12:39; Stop 05/16/17 at 12:40; Status DC Lorazepam (Ativan Inj) 2 mg STK-MED ONCE .ROUTE ; Start 05/16/17 at 12:43; Stop 05/16/17 at 12:44; Status DC Lorazepam (Ativan Inj) 4 mg ONCE ONCE IV PUSH Last administered on 05/16/17at 13:00; Start 05/16/17 at 13:00; Stop 05/16/17 at 13:02; Status DC Lorazepam (Ativan Inj) 2 mg ONCE ONCE IV PUSH ; Start 05/16/17 at 13:00; Stop 05/16/17 at 13:02; Status DC Ondansetron HCl (Zofran Inj) 4 mg ONCE ONCE IV PUSH Last administered on at 15:32; Start 05/16/17 at 15:30; Stop 05/16/17 at 15:31; Status DC Iohexol (Omnipaque 350 Inj) 75 ml STK-MED ONCE IVCONTRAST Last administered on 05/16/17at 18:05; Start 05/16/17 at 18:05; Stop 05/16/17 at 18:06; Status DC Ondansetron HCl (Zofran Inj) 4 mg ONCE ONCE IV PUSH Last administered on at 18:41; Start 05/16/17 at 18:15; Stop 05/16/17 at 18:16; Status DC Metoclopramide HCl (Reglan Inj) 10 mg ONCE ONCE IV PUSH Last administered on at 18:40; Start 05/16/17 at 18:15; Stop 05/16/17 at 18:16; Status DC Potassium Chloride 100 ml @ 100 mls/hr BOLUS ONCE IV Last administered on 02/20at 18:41; Start 05/16/17 at 18:30; Stop 05/16/17 at 19:29; Status DC Lorazepam (Ativan Inj) 1 mg Q5M PRN IV PUSH SEIZURE; Start 05/16/17 at 19:15 Sodium Chloride 1,000 ml @ 100 mls/hr Q10H IV Last administered on 05/17/17at 07:24; Start 05/16/17 at 19:06 Sodium Chloride (NS Flush) 2 ml UNSCH PRN IV FLUSH FLUSH AFTER USING IV ACCESS ; Start 05/16/17 at 19:15 Sodium Chloride (NS Flush) 2 ml BID IV FLUSH Last administered on 05/17/17at 09: 00; Start 05/16/17 at 21:00 Ondansetron HCl (Zofran Inj) 4 mg Q6H PRN IVP NAUSEA OR VOMITING; Start at 19:15 Acetaminophen (Tylenol) 650 mg Q6H PRN PO FEVER/PAIN SCALE 1 TO 2; Start at 19:15; Stop 05/17/17 at 10:19; Status DC Morphine Sulfate (Morphine Inj) 4 mg Q3H PRN IV PUSH Pain 6-10;if unable to take PO Last administered on 05/17/17at 02:01; Start 05/16/17 at 19:15; Stop 03/22 at 10:19; Status DC Senna/Docusate Sodium (Anahi-Colace) 1 tab BID PO ; Start 05/16/17 at 21:00 Magnesium Hydroxide (Milk Of Magnesia Liq) 30 ml Q12H PRN PO Mild constipation ; Start 05/16/17 at 19:15 Sennosides (Senokot) 17.2 mg Q12H PRN PO Moderate constipation; Start 05/16/17 at 19:15 Bisacodyl (Dulcolax Supp) 10 mg DAILY PRN RECTAL SEVERE CONSITIPATION; Start at 19:15 Lactulose (Lactulose Liq) 30 ml DAILY PRN PO SEVERE CONSITIPATION; Start at 19:15 Ceftriaxone Sodium 1000 mg/ Sodium Chloride 100 ml @ 200 mls/hr Q24H IV ; Start 05/16/17 at 20:00 Enalaprilat (Vasotec Inj) 2.5 mg ONCE ONCE IV PUSH Last administered on at 23:26; Start 05/16/17 at 23:00; Stop 05/16/17 at 23:01; Status DC Acetaminophen 100 ml @ 400 mls/hr ONCE ONCE IV Last administered on at 23:27; Start 05/16/17 at 23:00; Stop 05/16/17 at 23:14; Status DC Potassium Chloride 100 ml @ 50 mls/hr Q2H IV Last administered on 05/17/17at 05 :04; Start 05/17/17 at 03:00; Stop 05/17/17 at 06:59; Status DC Labetalol HCl (Trandate Inj) 10 mg Q6H PRN IV PUSH SEE LABEL COMMENTS Last administered on 05/17/17at 10:26; Start 05/17/17 at 03:00 Acetaminophen (Tylenol Supp) 650 mg Q6H PRN RECTAL FEVER/PAIN 1-2 Last administered on 05/17/17at 10:27; Start 05/17/17 at 10:15 Morphine Sulfate (Morphine Inj) 2 mg Q3H PRN IV PUSH PAIN 3-6; Start 05/17/17 at 10:15 Morphine Sulfate (Morphine Inj) 4 mg Q3H PRN IV PUSH PAIN 7 TO 10 Last administered on 05/17/17at 14:45; Start 05/17/17 at 10:15 Hydralazine HCl (Apresoline Inj) 20 mg Q4H PRN IV PUSH SBP >160 Last administered on 05/17/17at 14:45; Start 05/17/17 at 10:15 Potassium Chloride 100 ml @ 50 mls/hr Q2H PRN IV For Potassium 2.8 - 3.2 mEq/L ; Start 05/17/17 at 12:15 Potassium Chloride 100 ml @ 50 mls/hr Q2H PRN IV For Potassium 2.8 - 3.2 mEq/ L Last administered on 05/17/17at 17:17; Start 05/17/17 at 12:15 Potassium Bicarb/ Potassium Chloride (K-Lyte Cl Eff) 50 meq UNSCH PRN PO For Potassium 3.3 - 3.5 mEq/L; Start 05/17/17 at 12:15 Potassium Chloride 100 ml @ 25 mls/hr UNSCH PRN IV For Potassium 3.3 - 3.5 mEq /L; Start 05/17/17 at 12:15 Potassium Chloride 100 ml @ 50 mls/hr Q2H PRN IV For Potassium 3.3 - 3.5 mEq/L ; Start 05/17/17 at 12:15 Magnesium Sulfate 4 gm/Sodium Chloride 100 ml @ 50 mls/hr UNSCH PRN IV For Magnesium 0.9 - 1.1 mg/dL; Start 05/17/17 at 12:15 Magnesium Oxide (Mag-Ox) 800 mg UNSCH PRN PO For Magnesium 1.2 - 1.6 mg/dL; Start 05/17/17 at 12:15 Magnesium Sulfate 2 gm/Sodium Chloride 100 ml @ 50 mls/hr UNSCH PRN IV For Magnesium 1.2 - 1.6 mg/dL; Start 05/17/17 at 12:15 Potassium Phosphate (K-Phos) 2,000 mg Q4H PRN PO For Phosphorus < 2.5 mg/dL; Start 05/17/17 at 12:15 Sodium Phosphate 30 mmol/Sodium Chloride 250 ml @ 42 mls/hr UNSCH PRN IV For Phosphorus < 2.5 mg/dL; Start 05/17/17 at 12:15 Potassium Phosphate (K-Phos) 2,000 mg UNSCH PRN PO/TUBE SEE LABEL COMMENTS; Start 05/17/17 at 12:15 Potassium Phosphate 30 mmol/ Sodium Chloride 260 ml @ 42 mls/hr UNSCH PRN IV SEE LABEL COMMENTS; Start 05/17/17 at 12:15 Acetaminophen 100 ml @ 400 mls/hr Q6H PRN IV fever > 101.0; Start 05/17/17 at 16:15 A/P Problem List: (1) Encephalopathy ICD Code: G93.40 - Encephalopathy, unspecified (2) SBO (small bowel obstruction) ICD Code: K56.609 - Unspecified intestinal obstruction, unspecified as to partial versus complete obstruction (3) Seizure ICD Code: R56.9 - Unspecified convulsions Status: Acute (4) Lactic acidosis ICD Code: E87.2 - Acidosis (5) UTI (urinary tract infection) ICD Code: N39.0 - Urinary tract infection, site not specified (6) Renal insufficiency ICD Code: N28.9 - Disorder of kidney and ureter, unspecified (7) Rhabdomyolysis ICD Code: M62.82 - Rhabdomyolysis Status: Acute Assessment and Plan 1. Encephalopathy: Likely multifactorial-medication related, UTI and acute seizure w/ post-ictal state. CT Head w/ no acute findings, images reviewed. Neuro checks q4h. Hold all home medications for the time being until mental status improves. - SOFT RESTRAINTS NEEDED FOR PATIENT SAFETY 2. Seizure Disorder: w/ breakthrough seizure, seizure x2 while in ER, s/p Ativan 6mg, currently post-ictal/sedated. Neuro checks as above. Per review of records, previous EEG 07/13/16 w/ mild encephalopathy suggesting cortical irritability, improved from previous EEG. EEG 03/09/17 w/ no seizure activity. Unclear what medications she is on for seizure control. Seizure Precautions, Ativan prn, Consult Neurology for further recommendations. Attempt to obtain up to date medication list. 3. SBO: CT Abd/Pelvis w/ dilated loops of small bowel, likely ileus/ obstruction, images reviewed by me. No nausea/vomiting. NPO, IVF, consult Gen Sx for further evaluation, unlikely surgical intervention. LIKELY ILEUS- HAD BM TODAY 2-12 MORE ABDOMINAL SERIES TOMORROW 4. Lactic Acidosis: Lactate 2.4 repeat 3.6 after seizure activity. Likely secondary to dehydration/UTI compounded by seizure. IVF for hydration. Repeat lactate for trend. No evidence of sepsis at this time. 5. UTI: U/a w/ UTI. Start IV Rocephin, IVF for hydration, follow up urine cultures. CONTINUE ROCEPHIN 6. Renal Insufficiency: Chronic. Creatinine 1.08, previously 1.12 on . IVF for hydration, repeat labs in a.m. 7. Rhabdomyolysis: CPK 962. Likely secondary to seizure activity/ dehydration. Check serial CPK for trend, IVF. ELECTROLYTE DISORDER- REPLACE BY PROTOCOLS HOPEFULLY MORE ALERT TOMORROW AM LABS 8. DVT Prophylaxis: SCD/teds. Discharge Planning PENDING MENTAL STATUS IMPROVEMENT Real Ambrosio DO May 17, 2017 17:50
[2017-05-17] MEDS: cefTRIAXone INJ 1,000 MG in SODIUM CHLORIDE 0.9% INJ 100 ML IV SCH (19:47)
[2017-05-17 20:00] VITALS: BP 142/63; PULSE 93; RESP 25; TEMP 98.7; O2SAT 97
[2017-05-17] MEDS: levETIRAcetam INJ 500 MG in SODIUM CHLORIDE 0.9% INJ 100 ML IV SCH (20:02)
[2017-05-17] MEDS: SODIUM CHLORIDE 0.9% IV SCH (20:02)
[2017-05-17] MEDS: ACYCLOVIR IV SCH (20:02)
--- NOTE | 2017-05-17 21:49 | MB ---
cc: SARAH DOUGHRETY DATE OF CONSULTATION 05/17/2017 REASON FOR CONSULTATION Seizure and mental status change. HISTORY OF PRESENT ILLNESS Ms. Manley is a 62-year-old woman who has a history of seizure disorder who was brought to the hospital when her mother noted her to be more confused which her mother thought was due to pain medication. She had two seizures, a grand mal seizure in the emergency room requiring Ativan. She has had no recurrent seizures. She states she has had seizures in the past but does not recall medications that she is on for seizures. PAST MEDICAL HISTORY 1. History of seizure disorder. 2. Migraine headaches. 3. Thyroid cancer. 4. Coronary artery disease. 5. Hyperlipidemia. 6. Hypertension. 7. Depression. 8. Anxiety. 9. Chronic back pain with a morphine pump implantation. 10. Cholecystectomy. 11. Hysterectomy. 12. Tonsillectomy. 13. Thyroidectomy. ALLERGIES TO CYCLOBENZAPRINE, PAROXETINE, SULFAMETHOXAZOLE, TRIMETHOPRIM, CODEINE. SOCIAL HISTORY No history of drug use or tobacco use or alcohol use. MEDICATIONS Current medications are: 1. Seroquel 300 mg daily. 2. Synthroid 200 mcg daily. 3. Potassium chloride. 4. Magnesium sulfate. 5. Sodium phosphate. 6. Morphine sulfate. 7. Hydralazine p.r.n. 8. Colace. 9. Ceftriaxone. 10. Ativan as needed. 11. Zofran p.r.n. NEUROLOGIC EXAMINATION VITAL SIGNS: Blood pressure 177/98, pulse is 104, respirations 30, temperature 101.7. Higher cortical functions, the patient is alert, disoriented. She did not answer questions appropriately, is very confused. There is no neglect. Cranial nerves intact. Neck is supple. Motor exam she has normal strength in all major groups in both upper and lower extremities. She has normal muscle tone. IMAGING CT of the brain, air fluid level right maxillary sinus, intracranially is normal. Chest x-ray unremarkable. Abdominal x-ray slightly improved ileus versus partial small-bowel obstruction. Bowel gas pattern. LABORATORY DATA White count is 10,000, hemoglobin is 12.5, hematocrit 36.9%. Platelet count 203,000. PT 11.4, INR 1.1, APTT 22.6. Sodium is 142, potassium 2.8, chloride 106, CO2 is 27.6. The BUN is 7, creatinine 0.93. GFR is 61, glucose 136. AST 57, ALT 22, ammonia level 16. TSH 0.084. Tox screen positive for opiates, barbiturates. Phenobarbital less than 2.1. Urinalysis the pH is 6.0, specific gravity 1.016, protein is 100, wbc's 3, rbc's 2, leukocyte esterase is small high. Rare urine bacteria identified. IMPRESSION Mental status change with seizure. Possible postictal state, possible reaction to opiate pain medication. However, with profound mental status change as well as fever also recommend lumbar puncture to rule out [employer] POLICY ANALYST infection. Will start acyclovir pending results of the LP. We will start Keppra as well for seizure prophylaxis. I would like to get an MRI brain as well as an EEG for further evaluation. MD SHUN Latham/JULIETTE /6:05 PM /9:31 PM
[2017-05-18] VITALS (15 sets, daily range): BP systolic 117–169; BP diastolic 70–88; PULSE 75–113; RESP 10–29; TEMP 97.8–98.8; O2SAT 95–98
[2017-05-18] MEDS: ACYCLOVIR IV SCH ×3 (02:14→18:35)
[2017-05-18] MEDS: MORPHINE SULFATE 4 MG/ML INJ IV PUSH PRN ×2 (02:14→15:46)
[2017-05-18] MEDS: SODIUM CHLORIDE 0.9% IV SCH ×3 (02:14→18:35)
[2017-05-18] MEDS: levETIRAcetam INJ 500 MG in SODIUM CHLORIDE 0.9% INJ 100 ML IV SCH ×4 (02:15→18:22)
--- NOTE | 2017-05-18 05:53 | MB ---
cc: KERRY CAMPBELL DATE OF CONSULTATION 05/17/2017 HISTORY OF PRESENT ILLNESS Ms. Manley is a 62-year-old white female with a history of hypertension, coronary artery disease, dyslipidemia, thyroid cancer status post thyroidectomy, chronic back pain, morphine pump implantation. She was brought to the ER by her mother since she was more confused. She had two seizures in the emergency room. She has been poorly responsive since her seizures. PAST MEDICAL HISTORY Positive for - 1. Anxiety. 2. Hypertension. 3. Coronary disease. 4. Dyslipidemia. 5. Thyroid cancer. 6. Thyroidectomy. 7. Depression. 8. Seizure disorder. 9. Migraine headaches. 10. Chronic back pain. 11. Morphine pump implantation. 12. Gastroesophageal reflux disease. ALLERGIES CODEINE. TRIMETHOPRIM/SULFAMETHOXAZOLE. PAROXETINE. CYCLOBENZAPRINE. FAMILY HISTORY Negative for heart disease. SOCIAL HISTORY The patient does not smoke. She does not drink alcohol. She lives with her mother. REVIEW OF SYSTEMS Otherwise negative. PHYSICAL EXAMINATION Vital Signs: Blood pressure of 177/98, pulse 104 and was regular. HEENT: Negative. 2+ carotid upstrokes. No bruits. Lungs: Clear. Heart: Regular rate with no murmur or gallop. Abdomen: Soft. No bruits. Extremities: Without edema. 2+ pulses. Neurologic: Grossly nonfocal although the patient is lethargic and was poorly responsive. EKG Reviewed and showed normal sinus rhythm with normal axis and intervals, PACs, nonspecific ST changes. LABORATORY DATA Hemoglobin 12.5, potassium 2.8, creatinine 0.98, AST 57, ALT 22. CK 1318 and 1284. CK-MB index normal. Troponin 0.11, 0.10. TSH 0.084. DIAGNOSES 1. Encephalopathy. 2. Seizure. 3. Mildly abnormal troponin. 4. Rhabdomyolysis. 5. Renal insufficiency. 6. UTI. 7. Small bowel obstruction. DISPOSITION Ms. Manley will be monitored on telemetry. I recommend to continue and titrate verapamil for hypertension. Troponin is slightly elevated but is not trending in the direction. There is no clear evidence for acute coronary syndrome at this time. I will follow her for cardiology during her hospitalization. I will also see her back for followup in our office after discharge. The patient is undergoing neurologic evaluation including EEG. MD DYLON Carver/SSB /6:29 PM /5:33 AM
[2017-05-18] MEDS ORDERED: LEVOTHYROXINE SODIUM 200 MCG TAB PO SCH (06:00)
--- NOTE | 2017-05-18 06:01 | RADRPT ---
EXAM DATE/TIME: 05/18/2017 05:13 [facility] COMPARISON: No previous studies available for comparison. INDICATIONS : Ileus. MEDICAL HISTORY : Cardiovascular disease. SURGICAL HISTORY : Cholecystectomy. Hysterectomy. Morphine pump. ENCOUNTER: Subsequent ACUITY: 3 days PAIN SCORE: Non-responsive. LOCATION: all quadrants. FINDINGS: Supine view of the abdomen was performed. The abdominal bowel gas pattern is normal. No abnormal ma sses, calcifications, or organomegaly is seen. The osseous structures are unremarkable. CONCLUSION: Nonobstructive bowel gas pattern. Jimmy David MD on May 18, 2017 at 6:00 Board Certified Radiologist. This report was verified electronically.
[2017-05-18] MEDS: SODIUM CHLOR 0.9% 1000 ML INJ 1,000 ML IV SCH ×2 (06:03→21:32)
[2017-05-18] MEDS: QUEtiapine FUMARATE 300 MG TAB PO SCH ×2 (07:24→07:41)
[2017-05-18] MEDS: DOCUSATE SODIUM 50 MG/SENNA 8.6 MG TAB PO SCH ×2 (07:24→21:31)
[2017-05-18] MEDS: SODIUM CHLORIDE 0.9% FLUSH 10 ML FLUSH IV FLUSH SCH ×2 (07:41→21:31)
[2017-05-18 08:47] LABS: AUTOMATED NEUTROPHIL # 5.2 TH/MM3 (1.8-7.7); BASOPHIL % 0.4 % (0.0-2.0); EOSINOPHIL % 0.1 % (0.0-4.0); HEMATOCRIT 32.6 % (35.0-46.0); LYMPHOCYTE # 1.1 TH/MM3 (1.0-4.8); MEAN CELL VOLUME 86.1 FL (80.0-100.0); MEAN CORPUSCULAR HGB CONC 33.6 % (32.0-36.0); MEAN PLATELET VOLUME 8.1 FL (7.0-11.0); MONO % 10.6 % (0.0-8.0); MONOCYTE # 0.8 TH/MM3 (0-0.9); NEUT % 72.9 % (16.0-70.0); PLATELET COUNT 142 TH/MM3 (150-450); RED BLOOD COUNT 3.79 MIL/MM3 (4.00-5.30); WHITE BLOOD COUNT 7.1 TH/MM3 (4.0-11.0)
[2017-05-18] MEDS ORDERED: LORazepam 2 MG/ML VIAL IV PUSH PRN (09:00)
[2017-05-18 09:30] LABS: ALBUMIN 2.4 GM/DL (3.4-5.0); BICARBONATE 22.9 MEQ/L (21.0-32.0); BLOOD UREA NITROGEN 10 MG/DL (7-18); CALCIUM 7.5 MG/DL (8.5-10.1); CHLORIDE 110 MEQ/L (98-107); CREATININE 0.64 MG/DL (0.50-1.00); GLOMERULAR FILTRATION RATE 94 ML/MIN (>89); GLUCOSE,RANDOM 117 MG/DL (74-106); MAGNESIUM 1.7 MG/DL (1.5-2.5); SODIUM (NA) 141 MEQ/L (136-145)
[2017-05-18 09:32] LABS: ALT (GPT) 18 U/L (10-53); AST (GOT) 43 U/L (15-37); PHOSPHORUS 2.9 MG/DL (2.5-4.9)
[2017-05-18 09:35] LABS: ALKALINE PHOSPHATASE 52 U/L (45-117); TOTAL BILIRUBIN ADULT 0.4 MG/DL (0.2-1.0); TOTAL PROTEIN 6.3 GM/DL (6.4-8.2); TROPONIN I 0.05 NG/ML (0.02-0.05)
--- NOTE | 2017-05-18 10:13 | PD.RAD ---
Post Procedure Progress Note Pre Procedure Diagnosis: (1) Nausea & vomiting (2) Headache Post Procedure Diagnosis: (1) Nausea & vomiting (2) Headache Procedure Date: May 18, 2017 Supervising Radiologist: Zeke Mark Estimated blood loss: none Anesthesia: Local Plan of Activity Patient to Unit: Nursing Unit Patient Condition: Poor Additional Comments: LP completed without difficulty. 17cc of clear csf removed.' Full dictated report to follow See PACS Report for procedural detail/treatment Zeke Mark MD May 18, 2017 10:13
[2017-05-18 11:02] LABS: TOTAL PROTEIN,CSF 44.5 MG/DL (15.0-45.0)
[2017-05-18] MEDS ORDERED: GADODIAMIDE PF 287 MG/ML 20 ML VIAL (for RAD MRI) IVCONTRAST ONE (11:25)
[2017-05-18 11:26] LABS: SUPERNATE COLOR TUBE #1 CLEAR (CLEAR)
[2017-05-18 11:32] LABS: CSF LYMPHOCYTES 64 %; CSF MONOCYTES 16 %; CSF NEUTROPHILS 20 %; RBC TUBE #4 1037 /MM3; WBC TUBE #4 10 /MM3 (0-10)
--- NOTE | 2017-05-18 11:32 | RADRPT ---
EXAM DATE/TIME: 05/18/2017 09:55 [facility] COMPARISON: No previous studies available for comparison. INDICATIONS : Patient presents with altered mental status in need of lumbar puncture for further evaluation. MEDICAL HISTORY : Anxiety Depression HTN CAD Hyperlipidemia Thyroid CA Seizure Disorder Migraine Chronic Back Pain s/p Morphine GERD SURGICAL HISTORY : Pain Pump Implantation Cholecystectomy Hysterectomy Tonsillectomy Thyroidectomy ENCOUNTER: Initial ACUITY: 3 days PAIN SCORE: 8/10 LOCATION: Lower back pain LUMBAR PUNCTURE TIME: 10:05 hours FLUORO TIME: 0.5 minutes IMAGE SERIES: 0 ACCESS LEVEL: L4-5 FLUID: 17 cc of clear, red CSF was collected and sent to the laboratory for analysis. PROCEDURE : 1. Fluoroscopic guided lumbar puncture. The risks, benefits and alternatives to the procedure were explained and verbal and written consent w as obtained. The site was prepped in sterile fashion. Full sterile technique was used, including ca p, mask, sterile gloves and gown and a large sterile sheet. Hand hygiene and 2% chlorhexidine and/or betadine/alcohol prep was utilized per protocol for cutaneous antisepsis. The skin and subcutaneous tissues were infiltrated with local anesthetic solution. With fluoroscopic guidance the lumbar thecal sac was punctured at the level above. The fluid describ ed above was removed without difficulty. The patient tolerated the procedure well and there were no complications. CONCLUSION: Uncomplicated fluoroscopically guided lumbar puncture. Zeke Mark MD on May 18, 2017 at 11:29 Board Certified Radiologist. This report was verified electronically.
[2017-05-18] MEDS: POTASSIUM CHLOR 20 MEQ PREMIX 100 ML IV PRN ×2 (12:02→13:52)
--- NOTE | 2017-05-18 13:47 | HHI.PR ---
cc: Zia Huntley MD Subjective Subjective Notes DAILY PROGRESS NOTE FOR SURGICAL ATTENDING, DR. ZIA HUNTLEY Resting in bed Wakes up when I called her name Objective Vitals/I&O Vital Signs Date Time Temp Pulse Resp B/P (MAP) Pulse Ox O2 Delivery O2 Flow Rate FiO2 05/18/17 12:00 98.7 113 29 117/80 (92) 98 05/18/17 09:10 21 05/18/17 07:00 Room Air 05/16/17 23:50 2.00 Labs Laboratory Tests Test 05/18/17 08:32 05/18/17 10:05 White Blood Count 7.1 Red Blood Count 3.79 Hemoglobin 11.0 Hematocrit 32.6 Mean Corpuscular Volume 86.1 Mean Corpuscular Hemoglobin 29.0 Mean Corpuscular Hemoglobin Concent 33.6 Red Cell Distribution Width 17.0 Platelet Count 142 Mean Platelet Volume 8.1 Neutrophils (%) (Auto) 72.9 Lymphocytes (%) (Auto) 16.0 Monocytes (%) (Auto) 10.6 Eosinophils (%) (Auto) 0.1 Basophils (%) (Auto) 0.4 Neutrophils # (Auto) 5.2 Lymphocytes # (Auto) 1.1 Monocytes # (Auto) 0.8 Eosinophils # (Auto) 0.0 Basophils # (Auto) 0.0 CBC Comment DIFF FINAL Differential Comment Blood Urea Nitrogen 10 Creatinine 0.64 Random Glucose 117 Total Protein 6.3 Albumin 2.4 Calcium Level 7.5 Phosphorus Level 2.9 Magnesium Level 1.7 Alkaline Phosphatase 52 Aspartate Amino Transf (AST/SGOT) 43 Alanine Aminotransferase (ALT/SGPT) 18 Total Bilirubin 0.4 Sodium Level 141 Potassium Level 3.1 Chloride Level 110 Carbon Dioxide Level 22.9 Anion Gap 8 Estimat Glomerular Filtration Rate 94 Ammonia LESS THAN 10 Total Creatine Kinase 658 Creatine Kinase MB 3.5 Creatine Kinase MB % 0.5 Troponin I 0.05 CSF Volume (Tube 1) 4.0 CSF Supernatant Color (tube 1) CLEAR CSF Gross Blood (Tube 1) 1+ CSF Volume (Tube 2) 5.0 CSF Supernatant Color (tube 2) CLEAR CSF Gross Blood (Tube 2) 1+ CSF Volume (Tube 3) 3.5 CSF Supernatant Color (tube 3) CLEAR CSF Gross Blood (Tube 3) 1+ CSF Volume (Tube 4) 3.8 CSF Supernatant Color (tube 4) CLEAR CSF Gross Blood (Tube 4) TRACE CSF WBC (Tube 4) 10 CSF RBC (Tube 4) 1037 CSF Neutrophils 20 CSF Lymphocytes 64 CSF Monocytes 16 CSF Glucose 78 CSF Total Protein 44.5 Date/Time Source Procedure Growth Status 05/16/17 13:00 Blood Peripheral Aerobic Blood Culture - Preliminary NO GROWTH IN 2 DAYS Resulted 05/16/17 13:00 Blood Peripheral Anaerobic Blood Culture - Preliminary NO GROWTH IN 2 DAYS Resulted 05/18/17 10:05 Cerebral Spinal Fluid Lumbar Puncture Fungal Smear - Final NO FUNGAL ELEMENTS SEEN. Resulted 05/18/17 10:05 Cerebral Spinal Fluid Lumbar Puncture Fungal Culture Pending Resulted 05/16/17 13:00 Urine Catheterized Urine Urine Culture - Final NO GROWTH IN 48 HOURS. Complete Radiology Last 48 hours Impressions Abdomen X-Ray 05/17/17 0000 Signed Impressions: Service Date/Time: Wednesday, May 17, 2017 08:17 - CONCLUSION: 1. Slightly improved adynamic ileus versus partial small bowel obstruction bowel gas pattern. Leonides Ceja MD Head CT 05/16/17 1216 Signed Impressions: Service Date/Time: Tuesday, May 16, 2017 13:50 - CONCLUSION: Intracranially negative. Sinus disease as described above with an air-fluid level right maxillary sinus suggesting acute sinusitis Major Alfred MD Chest X-Ray 05/16/176 Signed Impressions: Service Date/Time: Tuesday, May 16, 2017 14:05 - CONCLUSION: No acute disease. No significant change has occurred. Major Alfred MD Abdomen/Pelvis CT 05/16/17 0000 Signed Impressions: Service Date/Time: Tuesday, May 16, 2017 17:46 - CONCLUSION: 1. Multiple dilated loops of small bowel down to the right lower quadrant without significant air-fluid levels. No abdominal mass seen. Different considerations include ileus and partial obstruction. 2. Stable appearance to multiple sigmoid diverticula without radiographic evidence of diverticulitis. 3. 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 Arnaud Alan MD Cardiovascular: Regular Lungs: Clear Abdomen: Non-distended, Non-tender Extremities: No edema A/P Assessment and Plan 62 year old female with AMS; UTI; ileus secondary to UTI -Continues to have Neurology workup---s/p MRI Brain and lumbar puncture -KUB continues to show improvement -Continue IV hydration -Antibiotics for UTI -Ofirmev PRN for fevers ---afebrile overnight -Clear liquids; advance as tolerated -Patient continues to have bowel function -Will continue with nonoperative treatment -General Surgery will sign off--- please call with questions Attending Statement NOTE FOR SURGICAL ATTENDING, DR. ZIA HUNTLEY Patient beginning to have bowel movements I suspect her ileus was a result of a urinary tract infection Advance diet and activities as tolerated I agree with above assessment and plan. The exam, history, and the medical decision-making described in the above note were completed with the assistance of the mid-level provider. I reviewed and agree with the findings presented. I attest that I had a [id number] encounter with the patient on the same day, and personally performed and documented my assessment and findings in the medical record. The following services were provided during this hospital visit: Chart data review, vital sign assessments/reviewing monitor data Review of consultations notes if present. Medication orders/review and/or management Ordering and/or reviewing lab tests Ordering and/or interpreting/reviewing x-rays and/or diagnostic studies Care of the patient and discussion of the patient with the care team Documentation time To help prompt me to consider important information that might be impacting today's encounter and assessment, information from prior notes written by myself or my colleagues may have been "brought forward/copy and pasted" into today's note. Tita Fox May 18, 2017 13:47 Zia Huntley MD May 19, 2017 15:35
--- NOTE | 2017-05-18 14:17 | HHI.PR ---
Subjective Remarks The patient was asking to be taken out of the restraints. She has family at the bedside. The patient denied any pain. She said she went for the procedure and MRI. Discussed with nursing. Objective Vitals Vital Signs Date Time Temp Pulse Resp B/P (MAP) Pulse Ox O2 Delivery O2 Flow Rate FiO2 05/18/17 12:00 98.7 113 29 117/80 (92) 98 05/18/17 09:10 95 21 05/18/17 08:00 97.8 80 10 145/70 (95) 95 05/18/17 07:00 98 Room Air 05/18/17 04:00 98.0 81 23 160/85 (110) 98 05/18/17 00:00 98.3 75 25 152/74 (100) 96 05/17/17 20:00 98 Room Air 05/17/17 20:00 98.7 93 25 142/63 (89) 97 05/17/17 19:52 20 05/17/17 16:00 100.0 114 20 167/91 (116) 98 I/O 05/17/17 05/17/17 05/17/17 05/18/17 05/18/17 05/18/17 07:00 15:00 23:00 07:00 15:00 23:00 Intake Total 1000 ml 1655 ml 1250 ml 355 ml Output Total 1000 ml 1500 ml Balance 1000 ml 655 ml -250 ml 355 ml Intake IV Total 1000 ml 1655 ml 1250 ml 355 ml Output Urine Total 1000 ml 1500 ml # Bowel Movements 0 1 0 Result Diagram: 05/18/17 0832 05/18/17 0832 Imaging Last Impressions Abdomen X-Ray 05/18/17 0600 Signed Impressions: Service Date/Time: Thursday, May 18, 2017 05:13 - CONCLUSION: Nonobstructive bowel gas pattern. Jimmy David MD Lumbar Puncture Fluoroscopy 05/18/17 0000 Signed Impressions: Service Date/Time: Thursday, May 18, 2017 09:55 - CONCLUSION: Uncomplicated fluoroscopically guided lumbar puncture. Zeke Mark MD Head CT 05/16/17 1216 Signed Impressions: Service Date/Time: Tuesday, May 16, 2017 13:50 - CONCLUSION: Intracranially negative. Sinus disease as described above with an air-fluid level right maxillary sinus suggesting acute sinusitis Major Alfred MD Chest X-Ray 05/16/17 1216 Signed Impressions: Service Date/Time: Tuesday, May 16, 2017 14:05 - CONCLUSION: No acute disease. No significant change has occurred. Major Alfred MD Abdomen/Pelvis CT 05/16/17 0000 Signed Impressions: Service Date/Time: Tuesday, May 16, 2017 17:46 - CONCLUSION: 1. Multiple dilated loops of small bowel down to the right lower quadrant without significant air-fluid levels. No abdominal mass seen. Different considerations include ileus and partial obstruction. 2. Stable appearance to multiple sigmoid diverticula without radiographic evidence of diverticulitis. 3. 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 Arnaud Alan MD Objective Remarks GENERAL: Appears comfortable. SKIN: Warm and dry. HEAD: Atraumatic. Normocephalic. EYES: Pupils equal and round. No scleral icterus. No injection or drainage. EOMI. ENT: No nasal bleeding or discharge. Mucous membranes pink and moist. NECK: Trachea midline. No JVD. CARDIOVASCULAR: Regular rate and rhythm. RESPIRATORY: No accessory muscle use. Clear to auscultation. Breath sounds equal bilaterally. GASTROINTESTINAL: Abdomen soft, non-tender, mild distention. Hepatic and splenic margins not palpable. MUSCULOSKELETAL: Extremities without clubbing, cyanosis, no obvious deformities. NEUROLOGICAL: Awake and alert. No obvious cranial nerve deficits. Motor grossly within normal limits. 4 out of 5 muscle strength in the arms and legs. PSYCHIATRIC: Calm. Medications and IVs Current Medications Medications (Trade) Dose Ordered Sig/Obdulia Route Start Time Stop Time Status Last Admin (Ativan Inj) 1 mg Q5M PRN IV PUSH 05/16/17 19:15 Sodium Chloride 1,000 ml @ 100 mls/hr Q10H IV 05/16/17 19:06 05/18/17 06:03 (NS Flush) 2 ml UNSCH PRN IV FLUSH 05/16/17 19:15 (NS Flush) 2 ml BID IV FLUSH 05/16/17 21:00 05/18/17 07:41 (Zofran Inj) 4 mg Q6H PRN IVP 05/16/17 19:15 (Anahi-Colace) 1 tab BID PO 05/16/17 21:00 (Milk Of Magnesia Liq) 30 ml Q12H PRN PO 05/16/17 19:15 (Senokot) 17.2 mg Q12H PRN PO 05/16/17 19:15 (Dulcolax Supp) 10 mg DAILY PRN RECTAL 05/16/17 19:15 (Lactulose Liq) 30 ml DAILY PRN PO 05/16/17 19:15 Ceftriaxone Sodium 1000 mg/ Sodium Chloride 100 ml @ 200 mls/hr Q24H IV 05/16/17 20:00 05/17/17 19:47 (Tylenol Supp) 650 mg Q6H PRN RECTAL 05/17/17 10:15 05/17/17 10:27 (Morphine Inj) 2 mg Q3H PRN IV PUSH 05/17/17 10:15 (Morphine Inj) 4 mg Q3H PRN IV PUSH 05/17/17 10:15 05/18/17 02:14 Potassium Chloride 100 ml @ 50 mls/hr Q2H PRN IV 05/17/17 12:15 Potassium Chloride 100 ml @ 50 mls/hr Q2H PRN IV 05/17/17 12:15 05/18/17 13:52 (K-Lyte Cl Eff) 50 meq UNSCH PRN PO 05/17/17 12:15 Potassium Chloride 100 ml @ 25 mls/hr UNSCH PRN IV 05/17/17 12:15 Potassium Chloride 100 ml @ 50 mls/hr Q2H PRN IV 05/17/17 12:15 Magnesium Sulfate 4 gm/Sodium Chloride 100 ml @ 50 mls/hr UNSCH PRN IV 05/17/17 12:15 (Mag-Ox) 800 mg UNSCH PRN PO 05/17/17 12:15 Magnesium Sulfate 2 gm/Sodium Chloride 100 ml @ 50 mls/hr UNSCH PRN IV 05/17/17 12:15 (K-Phos) 2,000 mg Q4H PRN PO 05/17/17 12:15 Sodium Phosphate 30 mmol/Sodium Chloride 250 ml @ 42 mls/hr UNSCH PRN IV 05/17/17 12:15 (K-Phos) 2,000 mg UNSCH PRN PO/TUBE 05/17/17 12:15 Potassium Phosphate 30 mmol/ Sodium Chloride 260 ml @ 42 mls/hr UNSCH PRN IV 05/17/17 12:15 Acetaminophen 100 ml @ 400 mls/hr Q6H PRN IV 05/17/17 16:15 (SEROquel) 300 mg DAILY PO 05/18/17 09:00 05/18/17 07:41 Acyclovir Sodium 812 mg/Sodium Chloride 150 ml @ 150 mls/hr Q8H IV 05/17/17 19:00 05/18/17 12:02 Levetriacetam 500 mg/Sodium Chloride 105 ml @ 420 mls/hr Q6HR IV 05/17/17 19:00 05/18/17 12:02 (Ativan Inj) 1 mg Q15M PRN IV PUSH 05/18/17 09:00 05/18/17 11:09 (Norvasc) 10 mg DAILY PO 05/18/17 13:30 (Synthroid) 175 mcg DAILY@0600 PO 05/19/17 06:00 UNV A/P Problem List: (1) Encephalopathy ICD Code: G93.40 - Encephalopathy, unspecified (2) SBO (small bowel obstruction) ICD Code: K56.609 - Unspecified intestinal obstruction, unspecified as to partial versus complete obstruction (3) Seizure ICD Code: R56.9 - Unspecified convulsions Status: Acute (4) Lactic acidosis ICD Code: E87.2 - Acidosis (5) UTI (urinary tract infection) ICD Code: N39.0 - Urinary tract infection, site not specified (6) Renal insufficiency ICD Code: N28.9 - Disorder of kidney and ureter, unspecified (7) Rhabdomyolysis ICD Code: M62.82 - Rhabdomyolysis Status: Acute Assessment and Plan Encephalopathy Likely multifactorial-medication related, UTI and acute seizure w/ post-ictal state. CT Head w/ no acute findings, images reviewed. - Neuro checks. - Hold sedating home medications for the time being until mental status improves. Resume trazodone and gabapentin at lower doses. - d/c restraints as tolerated. Seizure Disorder With breakthrough seizure, seizure x2 while in ER, s/p Ativan 6mg. Per review of records, previous EEG 07/13/16 w/ mild encephalopathy suggesting cortical irritability, improved from previous EEG. EEG 03/09/17 w/ no seizure activity. - Seizure precautions, Ativan prn. - imaging per neurology. - continue Keppra. SBO CT Abd/Pelvis w/ dilated loops of small bowel, likely ileus/obstruction. No nausea/vomiting. Gen Sx consult appreciated. - clears per surgery. - serial abdominal exams. - PPI. UTI U/a w/ UTI. Urine culture negative. - d/c Rocephin. Rhabdomyolysis Likely secondary to seizure activity/dehydration. - improved with IVFs. Hyperthyroidism TSH low. - decrease levothyroxine to 175 mcg daily. Electrolyte abnormalities Likely s/t decreased PO intake. - replete and monitor. - telemetry. PPx: Rusty Hinton DO May 18, 2017 14:17
[2017-05-18] MEDS ORDERED: GABAPENTIN 100 MG CAP PO PRN (14:30)
--- NOTE | 2017-05-18 14:42 | RADRPT ---
EXAM DATE/TIME: 05/18/2017 11:02 [facility] COMPARISON: MRI BRAIN W & W/O CONTRAST, March 08, 2017, 15:02. INDICATIONS : Seizures. CONTRAST: 16 cc Omniscan (gadodiamide) IV MEDICAL HISTORY : Hypertension. Seizures. Cardiovascular disease. SURGICAL HISTORY : Cholecystectomy. Hysterectomy. Tonsillectomy. Thyroidectomy. Back surgery. Morphine pump implanted. ENCOUNTER: Subsequent ACUITY: 2 day PAIN SCORE: 0/10 LOCATION: head. TECHNIQUE: Multiplanar, multisequence MRI of the brain was performed both prior to and following the administrat ion of paramagnetic contrast. FINDINGS: CEREBRUM: The ventricles are normal for age. No evidence of midline shift, mass lesion, hemorrhage or acute in farction. No extraaxial fluid collections are seen. The pituitary gland and suprasellar cistern are normal in configuration. WHITE MATTER: Scattered areas of high flair signal involving the cortical and subcortical aspects of both frontal l obes, parietal lobes, occipital lobes, and cerebellar hemispheres consistent with a postictal state. The underlying chronic small vessel ischemic change is masked. POSTERIOR FOSSA: The cerebellum and brainstem are intact. The 4th ventricle is midline. The cerebellopontine angle is unremarkable. The cerebellar tonsils are normal in position. DIFFUSION IMAGING: No focal areas of restricted diffusion are seen. No evidence of acute infarction. EXTRACRANIAL: The visualized portions of the orbits and paranasal sinuses are unremarkable. POST-CONTRAST: No abnormal areas of parenchymal or dural enhancement. No evidence of blood-brain barrier breakdown. CONCLUSION: 1. Diffuse signal change throughout both cerebral hemispheres and cerebellar hemispheres consistent w ith a postictal state. 2. Underlying chronic small vessel ischemic change. Arnaud Guzman Jr., MD on May 18, 2017 at 14:36 Board Certified Radiologist. This report was verified electronically.
--- NOTE | 2017-05-18 15:51 | MG ---
cc: SARAH DOUGHERTY Lab No:[id number] Date: 05/18/2017 Age: Sex: F Race: TECHNIQUE This is 17 channel EEG. DESCRIPTION The background rhythm reveals normal sleep activity initially with sleep spindles present and slowing in the theta range. Occasional vertex sharp waves identified. No lateralizing features are seen and no epileptiform discharges are identified. Photic results and a poor driving response. There is some eye movement artifact occasionally as well. INTERPRETATION This appears to be a normal sleep electroencephalogram. MD SHUN Latham/jayla /3:10 PM /3:39 PM
--- NOTE | 2017-05-18 17:14 | PD.CARD.PN ---
Subjective Subjective Remarks Awake, denies CP or SOB, c/o back pain, had LP Objective Medications Current Medications Medications (Trade) Dose Ordered Sig/Obdulia Route Start Time Stop Time Status Last Admin (Ativan Inj) 1 mg Q5M PRN IV PUSH 05/16/17 19:15 Sodium Chloride 1,000 ml @ 100 mls/hr Q10H IV 05/16/17 19:06 05/18/17 06:03 (NS Flush) 2 ml UNSCH PRN IV FLUSH 05/16/17 19:15 (NS Flush) 2 ml BID IV FLUSH 05/16/17 21:00 05/18/17 07:41 (Zofran Inj) 4 mg Q6H PRN IVP 05/16/17 19:15 (Anahi-Colace) 1 tab BID PO 05/16/17 21:00 (Milk Of Magnesia Liq) 30 ml Q12H PRN PO 05/16/17 19:15 (Senokot) 17.2 mg Q12H PRN PO 05/16/17 19:15 (Dulcolax Supp) 10 mg DAILY PRN RECTAL 05/16/17 19:15 (Lactulose Liq) 30 ml DAILY PRN PO 05/16/17 19:15 (Tylenol Supp) 650 mg Q6H PRN RECTAL 05/17/17 10:15 05/17/17 10:27 (Morphine Inj) 2 mg Q3H PRN IV PUSH 05/17/17 10:15 (Morphine Inj) 4 mg Q3H PRN IV PUSH 05/17/17 10:15 05/18/17 15:46 Acetaminophen 100 ml @ 400 mls/hr Q6H PRN IV 05/17/17 16:15 (SEROquel) 300 mg DAILY PO 05/18/17 09:00 05/18/17 07:41 Acyclovir Sodium 812 mg/Sodium Chloride 150 ml @ 150 mls/hr Q8H IV 05/17/17 19:00 05/18/17 12:02 Levetriacetam 500 mg/Sodium Chloride 105 ml @ 420 mls/hr Q6HR IV 05/17/17 19:00 05/18/17 12:02 (Ativan Inj) 1 mg Q15M PRN IV PUSH 05/18/17 09:00 05/18/17 11:09 (Norvasc) 10 mg DAILY PO 05/18/17 13:30 (Synthroid) 75 mcg DAILY@0600 PO 05/19/17 06:00 (Desyrel) 100 mg HS PO 05/18/17 21:00 (Neurontin) 100 mg TID PRN PO 05/18/17 14:30 (Protonix) 40 mg Q12HR PO 05/18/17 21:00 (Synthroid) 100 mcg DAILY@0600 PO 05/19/17 06:00 Vital Signs / I&O Vital Signs Date Time Temp Pulse Resp B/P (MAP) Pulse Ox O2 Delivery O2 Flow Rate FiO2 05/18/17 12:00 98.7 113 29 117/80 (92) 98 05/18/17 09:10 95 21 05/18/17 08:00 97.8 80 10 145/70 (95) 95 05/18/17 07:00 98 Room Air 05/18/17 04:00 98.0 81 23 160/85 (110) 98 05/18/17 00:00 98.3 75 25 152/74 (100) 96 05/17/17 20:00 98 Room Air 05/17/17 20:00 98.7 93 25 142/63 (89) 97 05/17/17 19:52 20 I/O 05/17/17 05/17/17 05/17/17 05/18/17 05/18/17 05/18/17 07:00 15:00 23:00 07:00 15:00 23:00 Intake Total 1000 ml 1655 ml 1250 ml 355 ml Output Total 1000 ml 1500 ml Balance 1000 ml 655 ml -250 ml 355 ml Intake IV Total 1000 ml 1655 ml 1250 ml 355 ml Output Urine Total 1000 ml 1500 ml # Bowel Movements 0 1 0 Physical Exam GENERAL: In NAD, mildly confused SKIN: Warm and dry. HEAD: Normocephalic. EYES: No scleral icterus. No injection or drainage. NECK: Supple, trachea midline. No JVD or lymphadenopathy. CARDIOVASCULAR: Regular rate and rhythm without murmurs, gallops, or rubs. RESPIRATORY: Breath sounds equal bilaterally. No accessory muscle use. GASTROINTESTINAL: Abdomen soft, non-tender, nondistended. MUSCULOSKELETAL: No cyanosis, or edema. Laboratory Laboratory Tests Test 05/18/17 08:32 05/18/17 10:05 White Blood Count 7.1 TH/MM3 Red Blood Count 3.79 MIL/MM3 Hemoglobin 11.0 GM/DL Hematocrit 32.6 % Mean Corpuscular Volume 86.1 FL Mean Corpuscular Hemoglobin 29.0 PG Mean Corpuscular Hemoglobin Concent 33.6 % Red Cell Distribution Width 17.0 % Platelet Count 142 TH/MM3 Mean Platelet Volume 8.1 FL Neutrophils (%) (Auto) 72.9 % Lymphocytes (%) (Auto) 16.0 % Monocytes (%) (Auto) 10.6 % Eosinophils (%) (Auto) 0.1 % Basophils (%) (Auto) 0.4 % Neutrophils # (Auto) 5.2 TH/MM3 Lymphocytes # (Auto) 1.1 TH/MM3 Monocytes # (Auto) 0.8 TH/MM3 Eosinophils # (Auto) 0.0 TH/MM3 Basophils # (Auto) 0.0 TH/MM3 CBC Comment DIFF FINAL Differential Comment Blood Urea Nitrogen 10 MG/DL Creatinine 0.64 MG/DL Random Glucose 117 MG/DL Total Protein 6.3 GM/DL Albumin 2.4 GM/DL Calcium Level 7.5 MG/DL Phosphorus Level 2.9 MG/DL Magnesium Level 1.7 MG/DL Alkaline Phosphatase 52 U/L Aspartate Amino Transf (AST/SGOT) 43 U/L Alanine Aminotransferase (ALT/SGPT) 18 U/L Total Bilirubin 0.4 MG/DL Sodium Level 141 MEQ/L Potassium Level 3.1 MEQ/L Chloride Level 110 MEQ/L Carbon Dioxide Level 22.9 MEQ/L Anion Gap 8 MEQ/L Estimat Glomerular Filtration Rate 94 ML/MIN Ammonia LESS THAN 10 MCMOL/L Total Creatine Kinase 658 U/L Creatine Kinase MB 3.5 NG/ML Creatine Kinase MB % 0.5 % Troponin I 0.05 NG/ML CSF Volume (Tube 1) 4.0 ML CSF Supernatant Color (tube 1) CLEAR CSF Gross Blood (Tube 1) 1+ CSF Volume (Tube 2) 5.0 ML CSF Supernatant Color (tube 2) CLEAR CSF Gross Blood (Tube 2) 1+ CSF Volume (Tube 3) 3.5 ML CSF Supernatant Color (tube 3) CLEAR CSF Gross Blood (Tube 3) 1+ CSF Volume (Tube 4) 3.8 ML CSF Supernatant Color (tube 4) CLEAR CSF Gross Blood (Tube 4) TRACE CSF WBC (Tube 4) 10 /MM3 CSF RBC (Tube 4) 1037 /MM3 CSF Neutrophils 20 % CSF Lymphocytes 64 % CSF Monocytes 16 % CSF Glucose 78 MG/DL CSF Total Protein 44.5 MG/DL Imaging Last 24 hours Impressions Abdomen X-Ray 05/18/17 0600 Signed Impressions: Service Date/Time: Thursday, May 18, 2017 05:13 - CONCLUSION: Nonobstructive bowel gas pattern. Jimmy David MD Lumbar Puncture Fluoroscopy 05/18/17 0000 Signed Impressions: Service Date/Time: Thursday, May 18, 2017 09:55 - CONCLUSION: Uncomplicated fluoroscopically guided lumbar puncture. Zeke Mark MD Brain MRI 05/18/17 0000 Signed Impressions: Service Date/Time: Thursday, May 18, 2017 11:02 - CONCLUSION: 1. Diffuse signal change throughout both cerebral hemispheres and cerebellar hemispheres consistent with a postictal state. 2. Underlying chronic small vessel ischemic change. Arnaud Guzman Jr., MD Assessment and Plan Problem List: (1) Encephalopathy ICD Codes: G93.40 - Encephalopathy, unspecified (2) Seizure ICD Codes: R56.9 - Unspecified convulsions Status: Acute (3) Rhabdomyolysis ICD Codes: M62.82 - Rhabdomyolysis Status: Acute (4) Renal insufficiency ICD Codes: N28.9 - Disorder of kidney and ureter, unspecified (5) UTI (urinary tract infection) ICD Codes: N39.0 - Urinary tract infection, site not specified (6) SBO (small bowel obstruction) ICD Codes: K56.609 - Unspecified intestinal obstruction, unspecified as to partial versus complete obstruction Assessment and Plan MS improving. Continue monitoring. Mild troponin elevation is nonspecific, unlikely to represent ACS. Increase activity, PT. Neuro eval in progress. Will schedule outpt f/u after discharge. Gail Mendoza MD May 18, 2017 17:14
[2017-05-18] MEDS ORDERED: LORazepam 0.5 MG TAB PO PRN (18:45)
[2017-05-18] MEDS: cloNIDine HCL 0.1 MG TAB PO SCH (18:56)
[2017-05-18] MEDS: traZODone HCL 100 MG TAB PO SCH (21:31)
[2017-05-18] MEDS: PANTOPRAZOLE SOD 40 MG DELAYED RELEASE TAB PO SCH (21:31)
[2017-05-19] VITALS (23 sets, daily range): BP systolic 153–172; BP diastolic 93–112; PULSE 70–122; RESP 16–20; TEMP 97.8–98.6; O2SAT 97–99
[2017-05-19] MEDS: ENALAPRILAT 1.25 MG/ML VIAL IV PUSH PRN (00:18)
[2017-05-19] MEDS: levETIRAcetam INJ 500 MG in SODIUM CHLORIDE 0.9% INJ 100 ML IV SCH ×2 (00:25→08:29)
[2017-05-19] MEDS: MORPHINE SULFATE 4 MG/ML INJ IV PUSH PRN ×2 (04:12→20:39)
[2017-05-19] MEDS ORDERED: cloNIDine HCL 0.1 MG TAB PO ONE (04:45)
[2017-05-19] MEDS: LEVOTHYROXINE SODIUM 100 MCG TAB PO SCH (04:53)
[2017-05-19] MEDS: LEVOTHYROXINE SODIUM 75 MCG TAB PO SCH (04:53)
[2017-05-19] MEDS: ACYCLOVIR IV SCH ×3 (05:02→18:19)
[2017-05-19] MEDS: SODIUM CHLORIDE 0.9% IV SCH ×3 (05:02→18:19)
[2017-05-19 07:05] LABS: BICARBONATE 22.3 MEQ/L (21.0-32.0); CREATININE 0.72 MG/DL (0.50-1.00); MAGNESIUM 1.8 MG/DL (1.5-2.5); PHOSPHORUS 2.6 MG/DL (2.5-4.9)
[2017-05-19 07:20] LABS: HEMATOCRIT 32.5 % (35.0-46.0); HEMOGLOBIN 10.8 GM/DL (11.6-15.3); MEAN CELL VOLUME 86.3 FL (80.0-100.0); MEAN CORPUSCULAR HEMOGLOBIN 28.8 PG (27.0-34.0); MEAN CORPUSCULAR HGB CONC 33.3 % (32.0-36.0); MEAN PLATELET VOLUME 8.4 FL (7.0-11.0); PLATELET COUNT 143 TH/MM3 (150-450); RED BLOOD COUNT 3.76 MIL/MM3 (4.00-5.30); RED CELL DISTRIBUTION WIDTH 17.1 % (11.6-17.2); WHITE BLOOD COUNT 5.9 TH/MM3 (4.0-11.0)
[2017-05-19 07:41] LABS: HSV 1,PCR Negative (Negative)
--- NOTE | 2017-05-19 08:07 | HHI.PR ---
Subjective Remarks in no distress. denies pain or headache. no seizures over night. on and off confusion and noted that was placed on restraints. d/w the RN at the bedside. Objective Vitals Vital Signs Date Time Temp Pulse Resp B/P (MAP) Pulse Ox O2 Delivery O2 Flow Rate FiO2 05/19/17 04:00 98.4 87 20 165/112 (129) 98 05/19/17 00:00 98.5 76 20 172/100 (124) 98 05/18/17 20:00 98.7 77 20 162/85 (110) 98 05/18/17 20:00 98 Room Air 05/18/17 18:20 18 05/18/17 18:00 86 05/18/17 17:00 94 05/18/17 16:00 96 05/18/17 15:30 98.8 101 20 169/88 (115) 96 05/18/17 15:00 82 05/18/17 12:00 98.7 113 29 117/80 (92) 98 05/18/17 09:10 95 21 I/O 05/18/17 05/18/17 05/18/17 05/19/17 05/19/17 05/19/17 07:00 15:00 23:00 07:00 15:00 23:00 Intake Total 1250 ml 355 ml 225 ml 240 ml Output Total 1500 ml 400 ml 750 ml Balance -250 ml 355 ml -175 ml -510 ml Intake Oral 120 ml 240 ml IV Total 1250 ml 355 ml 105 ml Output Urine Total 1500 ml 400 ml 750 ml # Bowel Movements 0 0 0 Result Diagram: 05/19/17 0516 05/19/17 0516 Imaging Last Impressions Abdomen X-Ray 05/18/17 0600 Signed Impressions: Service Date/Time: Thursday, May 18, 2017 05:13 - CONCLUSION: Nonobstructive bowel gas pattern. Jimmy David MD Lumbar Puncture Fluoroscopy 05/18/17 0000 Signed Impressions: Service Date/Time: Thursday, May 18, 2017 09:55 - CONCLUSION: Uncomplicated fluoroscopically guided lumbar puncture. Zeke Mark MD Brain MRI 05/18/17 0000 Signed Impressions: Service Date/Time: Thursday, May 18, 2017 11:02 - CONCLUSION: 1. Diffuse signal change throughout both cerebral hemispheres and cerebellar hemispheres consistent with a postictal state. 2. Underlying chronic small vessel ischemic change. Arnaud Guzman Jr., MD Head CT 05/16/17 1216 Signed Impressions: Service Date/Time: Tuesday, May 16, 2017 13:50 - CONCLUSION: Intracranially negative. Sinus disease as described above with an air-fluid level right maxillary sinus suggesting acute sinusitis Major Alfred MD Chest X-Ray 05/16/17 1216 Signed Impressions: Service Date/Time: Tuesday, May 16, 2017 14:05 - CONCLUSION: No acute disease. No significant change has occurred. Major Alfred MD Abdomen/Pelvis CT 05/16/17 0000 Signed Impressions: Service Date/Time: Tuesday, May 16, 2017 17:46 - CONCLUSION: 1. Multiple dilated loops of small bowel down to the right lower quadrant without significant air-fluid levels. No abdominal mass seen. Different considerations include ileus and partial obstruction. 2. Stable appearance to multiple sigmoid diverticula without radiographic evidence of diverticulitis. 3. 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 Arnaud Alan MD Objective Remarks GENERAL: This is a well-nourished, well-developed patient, in no apparent distress. CARDIOVASCULAR: Regular rate and regular rhythm without murmurs, gallops, or rubs. RESPIRATORY: Clear to auscultation. Breath sounds equal bilaterally. No wheezes , rales, or rhonchi. GASTROINTESTINAL: Abdomen soft, non-tender, nondistended. Normal, active bowel sounds MUSCULOSKELETAL: Extremities without clubbing, cyanosis, or edema. NEURO: awake and alert. Procedures LP Medications and IVs Inpatient Medications Acetaminophen 100 ml @ 400 mls/hr Q6H PRN IV fever > 101.0; Start 05/17/17 at 16:15 Acetaminophen (Tylenol Supp) 650 mg Q6H PRN RECTAL FEVER/PAIN 1-2 Last administered on 05/17/17at 10:27; Start 05/17/17 at 10:15 Acetaminophen (Tylenol) 650 mg Q6H PRN PO FEVER/PAIN SCALE 1 TO 2; Start at 19:15; Stop 05/17/17 at 10:19; Status DC Acyclovir Sodium 812 mg/Sodium Chloride 150 ml @ 150 mls/hr Q8H IV Last administered on 05/19/17at 05:02; Start 05/17/17 at 19:00 Amlodipine Besylate (Norvasc) 10 mg DAILY PO ; Start 05/18/17 at 13:30 Bisacodyl (Dulcolax Supp) 10 mg DAILY PRN RECTAL SEVERE CONSITIPATION; Start at 19:15 Ceftriaxone Sodium 1000 mg/ Sodium Chloride 100 ml @ 200 mls/hr Q24H IV Last administered on 05/17/17at 19:47; Start 05/16/17 at 20:00; Stop 05/18/17 at 14:20 ; Status DC Clonidine (Catapres) 0.1 mg ONCE ONCE PO Last administered on 05/19/17at 04:53 ; Start 05/19/17 at 04:45; Stop 05/19/17 at 04:46; Status DC Enalaprilat (Vasotec Inj) 1.25 mg Q6H PRN IV PUSH SBP> OR = 180, DBP> OR = 100 Last administered on 05/19/17at 00:18; Start 05/18/17 at 18:45 Gabapentin (Neurontin) 100 mg TID PRN PO neuropathy; Start 05/18/17 at 14:30 Hydralazine HCl (Apresoline Inj) 20 mg Q4H PRN IV PUSH SBP >160 Last administered on 05/17/17at 20:53; Start 05/17/17 at 10:15; Stop 05/18/17 at 12:26 ; Status DC Labetalol HCl (Trandate Inj) 10 mg Q6H PRN IV PUSH SEE LABEL COMMENTS Last administered on 05/17/17at 19:41; Start 05/17/17 at 03:00; Stop 05/18/17 at 12:26 ; Status DC Lactulose (Lactulose Liq) 30 ml DAILY PRN PO SEVERE CONSITIPATION; Start at 19:15 Levetriacetam 500 mg/Sodium Chloride 105 ml @ 420 mls/hr Q6HR IV Last administered on 05/19/17at 00:25; Start 05/17/17 at 19:00 Levothyroxine Sodium (Synthroid) 100 mcg DAILY@0600 PO Last administered on at 04:53; Start 05/19/17 at 06:00 Lorazepam (Ativan Inj) 1 mg Q15M PRN IV PUSH MRI anxiety Last administered on at 11:09; Start 05/18/17 at 09:00; Stop 05/18/17 at 18:36; Status DC Lorazepam (Ativan) 0.5 mg Q8H PRN PO ANXIETY; Start 05/18/17 at 18:45 Magnesium Hydroxide (Milk Of Magnesia Liq) 30 ml Q12H PRN PO Mild constipation ; Start 05/16/17 at 19:15 Magnesium Oxide (Mag-Ox) 800 mg UNSCH PRN PO For Magnesium 1.2 - 1.6 mg/dL; Start 05/17/17 at 12:15; Stop 05/18/17 at 14:51; Status DC Magnesium Sulfate 2 gm/Sodium Chloride 100 ml @ 50 mls/hr UNSCH PRN IV For Magnesium 1.2 - 1.6 mg/dL; Start 05/17/17 at 12:15; Stop 05/18/17 at 14:51; Status DC Magnesium Sulfate 4 gm/Sodium Chloride 100 ml @ 50 mls/hr UNSCH PRN IV For Magnesium 0.9 - 1.1 mg/dL; Start 05/17/17 at 12:15; Stop 05/18/17 at 14:51; Status DC Metoclopramide HCl (Reglan Inj) 10 mg ONCE ONCE IV PUSH Last administered on at 18:40; Start 05/16/17 at 18:15; Stop 05/16/17 at 18:16; Status DC Morphine Sulfate (Morphine Inj) 4 mg Q3H PRN IV PUSH PAIN 7 TO 10 Last administered on 05/19/17at 04:12; Start 05/17/17 at 10:15 Ondansetron HCl (Zofran Inj) 4 mg Q6H PRN IVP NAUSEA OR VOMITING; Start at 19:15 Pantoprazole Sodium (Protonix) 40 mg Q12HR PO Last administered on 05/18/17at 21 :31; Start 05/18/17 at 21:00 Potassium Phosphate (K-Phos) 2,000 mg UNSCH PRN PO/TUBE SEE LABEL COMMENTS; Start 05/17/17 at 12:15; Stop 05/18/17 at 14:51; Status DC Potassium Phosphate 30 mmol/ Sodium Chloride 260 ml @ 42 mls/hr UNSCH PRN IV SEE LABEL COMMENTS; Start 05/17/17 at 12:15; Stop 05/18/17 at 14:51; Status DC Potassium Bicarb/ Potassium Chloride (K-Lyte Cl Eff) 50 meq UNSCH PRN PO For Potassium 3.3 - 3.5 mEq/L; Start 05/17/17 at 12:15; Stop 05/18/17 at 14:51; Status DC Potassium Chloride 100 ml @ 50 mls/hr Q2H PRN IV For Potassium 3.3 - 3.5 mEq/L ; Start 05/17/17 at 12:15; Stop 05/18/17 at 14:51; Status DC Quetiapine Fumarate (SEROquel) 300 mg DAILY PO Last administered on 05/18/17at 07:41; Start 05/18/17 at 09:00 Senna/Docusate Sodium (Anahi-Colace) 1 tab BID PO Last administered on at 21:31; Start 05/16/17 at 21:00 Sennosides (Senokot) 17.2 mg Q12H PRN PO Moderate constipation; Start 05/16/17 at 19:15 Sodium Chloride (NS Flush) 2 ml BID IV FLUSH Last administered on 05/18/17at 21: 31; Start 05/16/17 at 21:00 Sodium Phosphate 30 mmol/Sodium Chloride 250 ml @ 42 mls/hr UNSCH PRN IV For Phosphorus < 2.5 mg/dL; Start 05/17/17 at 12:15; Stop 05/18/17 at 14:51; Status DC Trazodone HCl (Desyrel) 100 mg HS PO Last administered on 05/18/17at 21:31; Start 05/18/17 at 21:00 A/P Problem List: (1) Encephalopathy ICD Code: G93.40 - Encephalopathy, unspecified (2) SBO (small bowel obstruction) ICD Code: K56.609 - Unspecified intestinal obstruction, unspecified as to partial versus complete obstruction (3) Seizure ICD Code: R56.9 - Unspecified convulsions Status: Acute (4) Lactic acidosis ICD Code: E87.2 - Acidosis (5) UTI (urinary tract infection) ICD Code: N39.0 - Urinary tract infection, site not specified (6) Renal insufficiency ICD Code: N28.9 - Disorder of kidney and ureter, unspecified (7) Rhabdomyolysis ICD Code: M62.82 - Rhabdomyolysis Status: Acute Assessment and Plan Encephalopathy Likely multifactorial-medication related, UTI and acute seizure w/ post-ictal state. CT Head w/ no acute findings, images reviewed. - Neuro checks. - Hold sedating home medications for the time being until mental status improves. Resumed trazodone and gabapentin at lower doses. - d/c restraints as tolerated. Seizure Disorder With breakthrough seizure, seizure x2 while in ER, s/p Ativan 6mg. Per review of records, previous EEG 07/13/16 w/ mild encephalopathy suggesting cortical irritability, improved from previous EEG. EEG 03/09/17 w/ no seizure activity. - Seizure precautions, Ativan prn. - imaging per neurology. -s/p LP; will follow the culttures. - on Acyclovir - continue Keppra. -awaiting neurology f/u and recommendations. SBO- improved. CT Abd/Pelvis w/ dilated loops of small bowel, likely ileus/obstruction. - will advance the diet slowly. - PPI. -evaluated by surgery and signed off. UTI U/a w/ UTI. Urine culture negative. - d/c'ed Rocephin. Rhabdomyolysis Likely secondary to seizure activity/dehydration. - improved with IVFs. Hyperthyroidism TSH low. - decreased levothyroxine to 175 mcg daily. Electrolyte abnormalities Likely s/t decreased PO intake. - replete and monitor as needed. - telemetry. PPx: SCDs continue PT. Kaylynn Tejada MD May 19, 2017 08:07
[2017-05-19] MEDS: SODIUM CHLOR 0.9% 1000 ML INJ 1,000 ML IV SCH ×2 (08:28→20:46)
[2017-05-19] MEDS ORDERED: POTASSIUM CHLORIDE 10 MEQ CONTROLLED RELEASE TAB PO ONE ×2 (08:30→12:00)
[2017-05-19] MEDS ORDERED: cloNIDine HCL 0.1 MG TAB PO SCH (09:00)
--- NOTE | 2017-05-19 09:29 | HHI.PR ---
Review/Management Diagnosis seizure--stable on keppra Plan change keppra to PO repeat MRI brain in one weak d/c acyclovir if HSV PCR comes back negative. Diagnosis/Plan: Subjective Subjective Comments No acute events reported No sz denies headache Active Medications Current Medications Medications (Trade) Dose Ordered Sig/Obdulia Route Start Time Stop Time Status Last Admin (Ativan Inj) 1 mg Q5M PRN IV PUSH 05/16/17 19:15 Sodium Chloride 1,000 ml @ 100 mls/hr Q10H IV 05/16/17 19:06 05/19/17 08:28 (NS Flush) 2 ml UNSCH PRN IV FLUSH 05/16/17 19:15 (NS Flush) 2 ml BID IV FLUSH 05/16/17 21:00 05/18/17 21:31 (Zofran Inj) 4 mg Q6H PRN IVP 05/16/17 19:15 (Anahi-Colace) 1 tab BID PO 05/16/17 21:00 05/18/17 21:31 (Milk Of Magnesia Liq) 30 ml Q12H PRN PO 05/16/17 19:15 (Senokot) 17.2 mg Q12H PRN PO 05/16/17 19:15 (Dulcolax Supp) 10 mg DAILY PRN RECTAL 05/16/17 19:15 (Lactulose Liq) 30 ml DAILY PRN PO 05/16/17 19:15 (Tylenol Supp) 650 mg Q6H PRN RECTAL 05/17/17 10:15 05/17/17 10:27 (Morphine Inj) 2 mg Q3H PRN IV PUSH 05/17/17 10:15 (Morphine Inj) 4 mg Q3H PRN IV PUSH 05/17/17 10:15 05/19/17 04:12 Acetaminophen 100 ml @ 400 mls/hr Q6H PRN IV 05/17/17 16:15 (SEROquel) 300 mg DAILY PO 05/18/17 09:00 05/18/17 07:41 Acyclovir Sodium 812 mg/Sodium Chloride 150 ml @ 150 mls/hr Q8H IV 05/17/17 19:00 05/19/17 05:02 Levetriacetam 500 mg/Sodium Chloride 105 ml @ 420 mls/hr Q6HR IV 05/17/17 19:00 05/19/17 08:29 (Norvasc) 10 mg DAILY PO 05/18/17 13:30 (Synthroid) 75 mcg DAILY@0600 PO 05/19/17 06:00 05/19/17 04:53 (Desyrel) 100 mg HS PO 05/18/17 21:00 05/18/17 21:31 (Neurontin) 100 mg TID PRN PO 05/18/17 14:30 (Protonix) 40 mg Q12HR PO 05/18/17 21:00 05/18/17 21:31 (Synthroid) 100 mcg DAILY@0600 PO 05/19/17 06:00 05/19/17 04:53 (Vasotec Inj) 1.25 mg Q6H PRN IV PUSH 05/18/17 18:45 05/19/17 00:18 (Ativan) 0.5 mg Q8H PRN PO 05/18/17 18:45 (Catapres) 0.1 mg TID PO 05/18/17 18:45 05/18/17 18:56 (KCl) 30 meq ONCE ONCE PO 05/19/17 12:00 05/19/17 12:01 Allergies Allergies Coded Allergies cyclobenzaprine (Verified Allergy, Severe, hives, 03/12/17) paroxetine (Verified Allergy, Severe, rash, 03/12/17) sulfamethoxazole (Verified Allergy, Severe, rash, 03/12/17) trimethoprim (Verified Allergy, Intermediate, rash, 03/12/17) codeine (Verified Adverse Reaction, Severe, NAUSEA, 03/12/17) Review of Systems All other ROS: ROS reviewed as documented in chart Exam I&O / VS Vital Signs Date Time Temp Pulse Resp B/P (MAP) Pulse Ox O2 Delivery O2 Flow Rate FiO2 05/19/17 07:30 98.6 84 16 165/102 (123) 98 05/19/17 05:00 76 05/19/17 04:00 98.4 87 20 165/112 (129) 98 05/19/17 04:00 86 05/19/17 03:00 88 05/19/17 02:00 78 05/19/17 01:00 82 05/19/17 00:00 98 05/19/17 00:00 98.5 76 20 172/100 (124) 98 2/13/18 23:00 84 05/18/17 22:00 82 05/18/17 21:00 92 05/18/17 20:00 98.7 77 20 162/85 (110) 98 05/18/17 20:00 98 Room Air 05/18/17 20:00 94 05/18/17 19:00 94 05/18/17 18:20 18 05/18/17 18:00 86 05/18/17 17:00 94 05/18/17 16:00 96 05/18/17 15:30 98.8 101 20 169/88 (115) 96 05/18/17 15:00 82 05/18/17 12:00 98.7 113 29 117/80 (92) 98 General: Alert and Oriented, No acute distress Eye: PERRL, EOMI Respiratory: Non-labored respirations Cardiology: Normal rate Neurologic: Alert, Normal sensory, Normal motor, No focal defects, CN II-XII intact Psychiatric: Cooperative Exam Comments alert, oriented to self and place, speech normal and follows commands CN intact MOTOR 5/5 BUE Objective Radiology Results MRI brain ---diffuse signal change c/w post ictal state Micro and Labs Laboratory Tests Test 05/18/17 10:05 05/19/17 05:16 CSF Volume (Tube 1) 4.0 CSF Supernatant Color (tube 1) CLEAR CSF Gross Blood (Tube 1) 1+ CSF Volume (Tube 2) 5.0 CSF Supernatant Color (tube 2) CLEAR CSF Gross Blood (Tube 2) 1+ CSF Volume (Tube 3) 3.5 CSF Supernatant Color (tube 3) CLEAR CSF Gross Blood (Tube 3) 1+ CSF Volume (Tube 4) 3.8 CSF Supernatant Color (tube 4) CLEAR CSF Gross Blood (Tube 4) TRACE CSF WBC (Tube 4) 10 CSF RBC (Tube 4) 1037 CSF Neutrophils 20 CSF Lymphocytes 64 CSF Monocytes 16 CSF Glucose 78 CSF Total Protein 44.5 Herpes Simplex Virus I DNA (PCR) Negative Herpes Simplex Virus II DNA (PCR) Negative White Blood Count 5.9 Red Blood Count 3.76 Hemoglobin 10.8 Hematocrit 32.5 Mean Corpuscular Volume 86.3 Mean Corpuscular Hemoglobin 28.8 Mean Corpuscular Hemoglobin Concent 33.3 Red Cell Distribution Width 17.1 Platelet Count 143 Mean Platelet Volume 8.4 Blood Urea Nitrogen 9 Creatinine 0.72 Random Glucose 84 Calcium Level 8.0 Phosphorus Level 2.6 Magnesium Level 1.8 Sodium Level 143 Potassium Level 3.1 Chloride Level 112 Carbon Dioxide Level 22.3 Anion Gap 9 Estimat Glomerular Filtration Rate 82 Date/Time Source Procedure Growth Status 05/16/17 13:00 Blood Peripheral Aerobic Blood Culture - Preliminary NO GROWTH IN 2 DAYS Resulted 05/16/17 13:00 Blood Peripheral Anaerobic Blood Culture - Preliminary NO GROWTH IN 2 DAYS Resulted 05/18/17 10:05 Cerebral Spinal Fluid Lumbar Puncture Fungal Smear - Final NO FUNGAL ELEMENTS SEEN. Resulted 05/18/17 10:05 Cerebral Spinal Fluid Lumbar Puncture Fungal Culture Pending Resulted 05/16/17 13:00 Urine Catheterized Urine Urine Culture - Final NO GROWTH IN 48 HOURS. Complete Richie Aceves MD PhD May 19, 2017 09:29
[2017-05-19] MEDS: cloNIDine HCL 0.1 MG TAB PO SCH ×3 (09:55→17:02)
[2017-05-19] MEDS: DOCUSATE SODIUM 50 MG/SENNA 8.6 MG TAB PO SCH ×2 (09:55→20:43)
[2017-05-19] MEDS: PANTOPRAZOLE SOD 40 MG DELAYED RELEASE TAB PO SCH ×2 (09:57→20:44)
[2017-05-19] MEDS: QUEtiapine FUMARATE 300 MG TAB PO SCH (09:58)
[2017-05-19] MEDS: SODIUM CHLORIDE 0.9% FLUSH 10 ML FLUSH IV FLUSH SCH ×2 (09:59→20:41)
[2017-05-19] MEDS: MORPHINE SULFATE 2 MG/ML INJ IV PUSH PRN ×2 (12:01→17:03)
[2017-05-19] MEDS: levETIRAcetam 500 MG TAB PO SCH ×2 (13:03→20:43)
--- NOTE | 2017-05-19 15:45 | PD.CARD.PN ---
Subjective Subjective Remarks Feels much better, denies CP or SOB Objective Medications Current Medications Medications (Trade) Dose Ordered Sig/Obdulia Route Start Time Stop Time Status Last Admin (Ativan Inj) 1 mg Q5M PRN IV PUSH 05/16/17 19:15 Sodium Chloride 1,000 ml @ 100 mls/hr Q10H IV 05/16/17 19:06 05/19/17 08:28 (NS Flush) 2 ml UNSCH PRN IV FLUSH 05/16/17 19:15 (NS Flush) 2 ml BID IV FLUSH 05/16/17 21:00 05/19/17 09:59 (Zofran Inj) 4 mg Q6H PRN IVP 05/16/17 19:15 (Anahi-Colace) 1 tab BID PO 05/16/17 21:00 05/19/17 09:55 (Milk Of Magnesia Liq) 30 ml Q12H PRN PO 05/16/17 19:15 (Senokot) 17.2 mg Q12H PRN PO 05/16/17 19:15 (Dulcolax Supp) 10 mg DAILY PRN RECTAL 05/16/17 19:15 (Lactulose Liq) 30 ml DAILY PRN PO 05/16/17 19:15 (Tylenol Supp) 650 mg Q6H PRN RECTAL 05/17/17 10:15 05/17/17 10:27 (Morphine Inj) 2 mg Q3H PRN IV PUSH 05/17/17 10:15 05/19/17 12:01 (Morphine Inj) 4 mg Q3H PRN IV PUSH 05/17/17 10:15 05/19/17 04:12 Acetaminophen 100 ml @ 400 mls/hr Q6H PRN IV 05/17/17 16:15 (SEROquel) 300 mg DAILY PO 05/18/17 09:00 05/19/17 09:58 Acyclovir Sodium 812 mg/Sodium Chloride 150 ml @ 150 mls/hr Q8H IV 05/17/17 19:00 05/19/17 13:04 (Norvasc) 10 mg DAILY PO 05/18/17 13:30 05/19/17 09:55 (Synthroid) 75 mcg DAILY@0600 PO 05/19/17 06:00 05/19/17 04:53 (Desyrel) 100 mg HS PO 05/18/17 21:00 05/18/17 21:31 (Neurontin) 100 mg TID PRN PO 05/18/17 14:30 (Protonix) 40 mg Q12HR PO 05/18/17 21:00 05/19/17 09:57 (Synthroid) 100 mcg DAILY@0600 PO 05/19/17 06:00 05/19/17 04:53 (Vasotec Inj) 1.25 mg Q6H PRN IV PUSH 05/18/17 18:45 05/19/17 00:18 (Ativan) 0.5 mg Q8H PRN PO 05/18/17 18:45 (Catapres) 0.1 mg TID PO 05/18/17 18:45 05/19/17 12:01 (Keppra) 1,000 mg Q12HR PO 05/19/17 12:00 05/19/17 13:03 Vital Signs / I&O Vital Signs Date Time Temp Pulse Resp B/P (MAP) Pulse Ox O2 Delivery O2 Flow Rate FiO2 05/19/17 15:09 98.1 98 20 153/102 (119) 99 05/19/17 14:00 86 05/19/17 13:00 88 05/19/17 12:30 17 05/19/17 12:00 84 05/19/17 11:59 97.8 79 17 167/97 (120) 97 05/19/17 11:00 76 05/19/17 10:00 84 05/19/17 09:00 80 05/19/17 09:00 98 Room Air 05/19/17 08:00 82 05/19/17 07:30 98.6 84 16 165/102 (123) 98 05/19/17 07:00 70 05/19/17 05:00 76 05/19/17 04:00 98.4 87 20 165/112 (129) 98 05/19/17 04:00 86 05/19/17 03:00 88 05/19/17 02:00 78 05/19/17 01:00 82 05/19/17 00:00 98 05/19/17 00:00 98.5 76 20 172/100 (124) 98 05/18/17 23:00 84 05/18/17 22:00 82 05/18/17 21:00 92 2/13/18 20:00 98.7 77 20 162/85 (110) 98 05/18/17 20:00 98 Room Air 05/18/17 20:00 94 05/18/17 19:00 94 05/18/17 18:20 18 05/18/17 18:00 86 05/18/17 17:00 94 05/18/17 16:00 96 I/O 05/18/17 05/18/17 05/18/17 05/19/17 05/19/17 05/19/17 07:00 15:00 23:00 07:00 15:00 23:00 Intake Total 1250 ml 355 ml 225 ml 240 ml Output Total 1500 ml 400 ml 750 ml Balance -250 ml 355 ml -175 ml -510 ml Intake Oral 120 ml 240 ml IV Total 1250 ml 355 ml 105 ml Output Urine Total 1500 ml 400 ml 750 ml # Bowel Movements 0 0 0 Physical Exam GENERAL: In NAD SKIN: Warm and dry. HEAD: Normocephalic. EYES: No scleral icterus. No injection or drainage. NECK: Supple, trachea midline. No JVD or lymphadenopathy. CARDIOVASCULAR: Regular rate and rhythm without murmurs, gallops, or rubs. RESPIRATORY: Breath sounds equal bilaterally. No accessory muscle use. GASTROINTESTINAL: Abdomen soft, non-tender, nondistended. MUSCULOSKELETAL: No cyanosis, or edema. Laboratory Laboratory Tests Test 05/19/17 05:16 White Blood Count 5.9 TH/MM3 Red Blood Count 3.76 MIL/MM3 Hemoglobin 10.8 GM/DL Hematocrit 32.5 % Mean Corpuscular Volume 86.3 FL Mean Corpuscular Hemoglobin 28.8 PG Mean Corpuscular Hemoglobin Concent 33.3 % Red Cell Distribution Width 17.1 % Platelet Count 143 TH/MM3 Mean Platelet Volume 8.4 FL Blood Urea Nitrogen 9 MG/DL Creatinine 0.72 MG/DL Random Glucose 84 MG/DL Calcium Level 8.0 MG/DL Phosphorus Level 2.6 MG/DL Magnesium Level 1.8 MG/DL Sodium Level 143 MEQ/L Potassium Level 3.1 MEQ/L Chloride Level 112 MEQ/L Carbon Dioxide Level 22.3 MEQ/L Anion Gap 9 MEQ/L Estimat Glomerular Filtration Rate 82 ML/MIN Assessment and Plan Problem List: (1) Encephalopathy ICD Codes: G93.40 - Encephalopathy, unspecified (2) Seizure ICD Codes: R56.9 - Unspecified convulsions Status: Acute (3) Rhabdomyolysis ICD Codes: M62.82 - Rhabdomyolysis Status: Acute (4) Renal insufficiency ICD Codes: N28.9 - Disorder of kidney and ureter, unspecified (5) UTI (urinary tract infection) ICD Codes: N39.0 - Urinary tract infection, site not specified (6) SBO (small bowel obstruction) ICD Codes: K56.609 - Unspecified intestinal obstruction, unspecified as to partial versus complete obstruction Assessment and Plan Remains stable from cardiac standpoint. Mild troponin elevation is nonspecific, unlikely to represent ACS. Continue current program. Increase activity, PT. Neuro eval in progress. Will schedule outpt f/u after discharge. Gail Mendoza MD May 19, 2017 15:45
[2017-05-19] MEDS: traZODone HCL 100 MG TAB PO SCH (20:43)
[2017-05-20] VITALS (13 sets, daily range): BP systolic 129–174; BP diastolic 9–114; PULSE 65–116; RESP 18–20; TEMP 98–98.9; O2SAT 96–98
[2017-05-20] MEDS: MORPHINE SULFATE 4 MG/ML INJ IV PUSH PRN ×3 (01:00→21:04)
[2017-05-20] MEDS: ACYCLOVIR IV SCH (03:59)
[2017-05-20] MEDS: SODIUM CHLORIDE 0.9% IV SCH (03:59)
[2017-05-20] MEDS: LEVOTHYROXINE SODIUM 75 MCG TAB PO SCH (06:37)
[2017-05-20] MEDS: LEVOTHYROXINE SODIUM 100 MCG TAB PO SCH (06:37)
[2017-05-20] MEDS ORDERED: POTASSIUM CHLORIDE 10 MEQ CONTROLLED RELEASE TAB PO ONE ×3 (09:15→17:00)
--- NOTE | 2017-05-20 09:15 | HHI.PR ---
Subjective Remarks in no acute distress. feels and looks better today. mental status has much improved. no fever. d/w the RN and no acute issues over night. Objective Vitals Vital Signs Date Time Temp Pulse Resp B/P (MAP) Pulse Ox O2 Delivery O2 Flow Rate FiO2 05/20/17 04:04 18 05/20/17 04:00 65 05/20/17 00:00 89 05/20/17 00:00 98.5 88 20 162/100 (120) 98 05/19/17 20:00 87 05/19/17 20:00 97.9 83 20 155/93 (113) 97 05/19/17 20:00 Room Air 05/19/17 15:09 98.1 98 20 153/102 (119) 99 05/19/17 15:00 99 05/19/17 14:00 86 05/19/17 13:00 88 05/19/17 12:30 17 05/19/17 12:00 84 05/19/17 11:59 97.8 79 17 167/97 (120) 97 05/19/17 11:00 76 05/19/17 10:00 84 I/O 05/19/17 05/19/17 05/19/17 05/20/17 05/20/17 05/20/17 07:00 15:00 23:00 07:00 15:00 23:00 Intake Total 240 ml 840 ml Output Total 750 ml 2000 ml Balance -510 ml -1160 ml Intake Oral 240 ml 840 ml Output Urine Total 750 ml 2000 ml # Bowel Movements 0 Result Diagram: 05/19/17 0516 05/20/17 0453 Imaging Last Impressions Abdomen X-Ray 05/18/17 0600 Signed Impressions: Service Date/Time: Thursday, May 18, 2017 05:13 - CONCLUSION: Nonobstructive bowel gas pattern. Jimmy David MD Lumbar Puncture Fluoroscopy 05/18/17 0000 Signed Impressions: Service Date/Time: Thursday, May 18, 2017 09:55 - CONCLUSION: Uncomplicated fluoroscopically guided lumbar puncture. Zeke Mark MD Brain MRI 05/18/17 0000 Signed Impressions: Service Date/Time: Thursday, May 18, 2017 11:02 - CONCLUSION: 1. Diffuse signal change throughout both cerebral hemispheres and cerebellar hemispheres consistent with a postictal state. 2. Underlying chronic small vessel ischemic change. Arnaud Guzman Jr., MD Head CT 05/16/17 1216 Signed Impressions: Service Date/Time: Tuesday, May 16, 2017 13:50 - CONCLUSION: Intracranially negative. Sinus disease as described above with an air-fluid level right maxillary sinus suggesting acute sinusitis Major Alfred MD Chest X-Ray 05/16/17 1216 Signed Impressions: Service Date/Time: Tuesday, May 16, 2017 14:05 - CONCLUSION: No acute disease. No significant change has occurred. Major Alfred MD Abdomen/Pelvis CT 05/16/17 0000 Signed Impressions: Service Date/Time: Tuesday, May 16, 2017 17:46 - CONCLUSION: 1. Multiple dilated loops of small bowel down to the right lower quadrant without significant air-fluid levels. No abdominal mass seen. Different considerations include ileus and partial obstruction. 2. Stable appearance to multiple sigmoid diverticula without radiographic evidence of diverticulitis. 3. 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 Arnaud Alan MD Objective Remarks GENERAL: This is a well-nourished, well-developed patient, in no apparent distress. CARDIOVASCULAR: Regular rate and regular rhythm without murmurs, gallops, or rubs. RESPIRATORY: Clear to auscultation. Breath sounds equal bilaterally. No wheezes , rales, or rhonchi. GASTROINTESTINAL: Abdomen soft, non-tender, nondistended. Normal, active bowel sounds MUSCULOSKELETAL: Extremities without clubbing, cyanosis, or edema. NEURO: awake and alert. Procedures LP Medications and IVs Inpatient Medications Acetaminophen 100 ml @ 400 mls/hr Q6H PRN IV fever > 101.0; Start 05/17/17 at 16:15 Acetaminophen (Tylenol Supp) 650 mg Q6H PRN RECTAL FEVER/PAIN 1-2 Last administered on 05/17/17at 10:27; Start 05/17/17 at 10:15 Acetaminophen (Tylenol) 650 mg Q6H PRN PO FEVER/PAIN SCALE 1 TO 2; Start at 19:15; Stop 05/17/17 at 10:19; Status DC Acyclovir Sodium 812 mg/Sodium Chloride 150 ml @ 150 mls/hr Q8H IV Last administered on 05/20/17at 03:59; Start 05/17/17 at 19:00 Amlodipine Besylate (Norvasc) 10 mg DAILY PO Last administered on 05/19/17at 09: 55; Start 05/18/17 at 13:30 Bisacodyl (Dulcolax Supp) 10 mg DAILY PRN RECTAL SEVERE CONSITIPATION; Start at 19:15 Ceftriaxone Sodium 1000 mg/ Sodium Chloride 100 ml @ 200 mls/hr Q24H IV Last administered on 05/17/17at 19:47; Start 05/16/17 at 20:00; Stop 05/18/17 at 14:20 ; Status DC Clonidine (Catapres) 0.1 mg ONCE ONCE PO Last administered on 05/19/17at 04:53 ; Start 05/19/17 at 04:45; Stop 05/19/17 at 04:46; Status DC Enalaprilat (Vasotec Inj) 1.25 mg Q6H PRN IV PUSH SBP> OR = 180, DBP> OR = 100 Last administered on 05/19/17at 00:18; Start 05/18/17 at 18:45 Gabapentin (Neurontin) 100 mg TID PRN PO neuropathy; Start 05/18/17 at 14:30 Hydralazine HCl (Apresoline Inj) 20 mg Q4H PRN IV PUSH SBP >160 Last administered on 05/17/17at 20:53; Start 05/17/17 at 10:15; Stop 05/18/17 at 12:26 ; Status DC Labetalol HCl (Trandate Inj) 10 mg Q6H PRN IV PUSH SEE LABEL COMMENTS Last administered on 05/17/17at 19:41; Start 05/17/17 at 03:00; Stop 05/18/17 at 12:26 ; Status DC Lactulose (Lactulose Liq) 30 ml DAILY PRN PO SEVERE CONSITIPATION; Start at 19:15 Levetriacetam (Keppra) 1,000 mg Q12HR PO Last administered on 05/19/17at 20:43; Start 05/19/17 at 12:00 Levetriacetam 500 mg/Sodium Chloride 105 ml @ 420 mls/hr Q6HR IV Last administered on 05/19/17at 08:29; Start 05/17/17 at 19:00; Stop 05/19/17 at 09:27 ; Status DC Levothyroxine Sodium (Synthroid) 100 mcg DAILY@0600 PO Last administered on at 06:37; Start 05/19/17 at 06:00 Lorazepam (Ativan Inj) 1 mg Q15M PRN IV PUSH MRI anxiety Last administered on at 11:09; Start 05/18/17 at 09:00; Stop 05/18/17 at 18:36; Status DC Lorazepam (Ativan) 0.5 mg Q8H PRN PO ANXIETY; Start 05/18/17 at 18:45 Magnesium Hydroxide (Milk Of Magnesia Liq) 30 ml Q12H PRN PO Mild constipation ; Start 05/16/17 at 19:15 Magnesium Oxide (Mag-Ox) 800 mg UNSCH PRN PO For Magnesium 1.2 - 1.6 mg/dL; Start 05/17/17 at 12:15; Stop 05/18/17 at 14:51; Status DC Magnesium Sulfate 2 gm/Sodium Chloride 100 ml @ 50 mls/hr UNSCH PRN IV For Magnesium 1.2 - 1.6 mg/dL; Start 05/17/17 at 12:15; Stop 05/18/17 at 14:51; Status DC Magnesium Sulfate 4 gm/Sodium Chloride 100 ml @ 50 mls/hr UNSCH PRN IV For Magnesium 0.9 - 1.1 mg/dL; Start 05/17/17 at 12:15; Stop 05/18/17 at 14:51; Status DC Metoclopramide HCl (Reglan Inj) 10 mg ONCE ONCE IV PUSH Last administered on at 18:40; Start 05/16/17 at 18:15; Stop 05/16/17 at 18:16; Status DC Morphine Sulfate (Morphine Inj) 4 mg Q3H PRN IV PUSH PAIN 7 TO 10 Last administered on 05/20/17at 03:59; Start 05/17/17 at 10:15 Ondansetron HCl (Zofran Inj) 4 mg Q6H PRN IVP NAUSEA OR VOMITING; Start at 19:15 Pantoprazole Sodium (Protonix) 40 mg Q12HR PO Last administered on 05/19/17at 20 :44; Start 05/18/17 at 21:00 Potassium Phosphate (K-Phos) 2,000 mg UNSCH PRN PO/TUBE SEE LABEL COMMENTS; Start 05/17/17 at 12:15; Stop 05/18/17 at 14:51; Status DC Potassium Phosphate 30 mmol/ Sodium Chloride 260 ml @ 42 mls/hr UNSCH PRN IV SEE LABEL COMMENTS; Start 05/17/17 at 12:15; Stop 05/18/17 at 14:51; Status DC Potassium Bicarb/ Potassium Chloride (K-Lyte Cl Eff) 50 meq UNSCH PRN PO For Potassium 3.3 - 3.5 mEq/L; Start 05/17/17 at 12:15; Stop 05/18/17 at 14:51; Status DC Potassium Chloride (KCl) 30 meq ONCE ONCE PO Last administered on 05/19/17at 13 :03; Start 05/19/17 at 12:00; Stop 05/19/17 at 12:01; Status DC Quetiapine Fumarate (SEROquel) 300 mg DAILY PO Last administered on 05/19/17at 09:58; Start 05/18/17 at 09:00 Senna/Docusate Sodium (Anahi-Colace) 1 tab BID PO Last administered on at 20:43; Start 05/16/17 at 21:00 Sennosides (Senokot) 17.2 mg Q12H PRN PO Moderate constipation; Start 05/16/17 at 19:15 Sodium Chloride (NS Flush) 2 ml BID IV FLUSH Last administered on 05/19/17at 20: 41; Start 05/16/17 at 21:00 Sodium Phosphate 30 mmol/Sodium Chloride 250 ml @ 42 mls/hr UNSCH PRN IV For Phosphorus < 2.5 mg/dL; Start 05/17/17 at 12:15; Stop 05/18/17 at 14:51; Status DC Trazodone HCl (Desyrel) 100 mg HS PO Last administered on 05/19/17at 20:43; Start 05/18/17 at 21:00 A/P Problem List: (1) Encephalopathy ICD Code: G93.40 - Encephalopathy, unspecified (2) SBO (small bowel obstruction) ICD Code: K56.609 - Unspecified intestinal obstruction, unspecified as to partial versus complete obstruction (3) Seizure ICD Code: R56.9 - Unspecified convulsions Status: Acute (4) Lactic acidosis ICD Code: E87.2 - Acidosis (5) UTI (urinary tract infection) ICD Code: N39.0 - Urinary tract infection, site not specified (6) Renal insufficiency ICD Code: N28.9 - Disorder of kidney and ureter, unspecified (7) Rhabdomyolysis ICD Code: M62.82 - Rhabdomyolysis Status: Acute Assessment and Plan Encephalopathy- has improved. Likely multifactorial-medication related, UTI and acute seizure w/ post-ictal state. - Neuro checks. - Hold sedating home medications for the time being until mental status improves. Resumed trazodone and gabapentin at lower doses. - d/c restraints as tolerated. Seizure Disorder With breakthrough seizure, seizure x2 while in ER, s/p Ativan 6mg. Per review of records, previous EEG 07/13/16 w/ mild encephalopathy suggesting cortical irritability, improved from previous EEG. EEG 03/09/17 w/ no seizure activity. - Seizure precautions, Ativan prn. -s/p LP. - continue Keppra. -HSV PCR negative; will dc Acyclovir. -MRI brain in one week- per neurology. SBO- improved. CT Abd/Pelvis w/ dilated loops of small bowel, likely ileus/obstruction. - continue to advance the diet. - PPI. -evaluated by surgery and signed off. Rhabdomyolysis Likely secondary to seizure activity/dehydration. - improved with IVFs. Hypothyroidism TSH low. - decreased levothyroxine to 175 mcg daily. Electrolyte abnormalities Likely s/t decreased PO intake. - replete and monitor as needed. - telemetry. PPx: SCDs continue PT. Discharge Planning case management for rehab. discharge tomorrow if stable. Kaylynn Tejada MD May 20, 2017 09:15
[2017-05-20] MEDS: MORPHINE SULFATE 2 MG/ML INJ IV PUSH PRN ×2 (09:23→12:59)
[2017-05-20] MEDS: DOCUSATE SODIUM 50 MG/SENNA 8.6 MG TAB PO SCH ×2 (09:24→21:05)
[2017-05-20] MEDS: SODIUM CHLORIDE 0.9% FLUSH 10 ML FLUSH IV FLUSH SCH ×2 (09:24→21:04)
[2017-05-20] MEDS: levETIRAcetam 500 MG TAB PO SCH ×2 (09:24→21:02)
[2017-05-20] MEDS: QUEtiapine FUMARATE 300 MG TAB PO SCH (09:24)
[2017-05-20] MEDS: PANTOPRAZOLE SOD 40 MG DELAYED RELEASE TAB PO SCH ×2 (09:24→21:02)
[2017-05-20] MEDS: cloNIDine HCL 0.1 MG TAB PO SCH ×3 (09:24→17:08)
[2017-05-20] MEDS: SODIUM CHLOR 0.9% 1000 ML INJ 1,000 ML IV SCH ×3 (09:32→21:13)
[2017-05-20 17:52] LABS: CALIFORNIA ENCEPH AB IGG <1:4 (<1:4); CALIFORNIA ENCEPH AB IGM <1:4 (<1:4); CSF CRYPTOCOCCUS ANTIGEN NOT DETECTED (NEGATIVE); EAST EQUINE ENCEPH AB IGG <1:4 (<1:4); EAST EQUINE ENCEPH AB IGM <1:4 (<1:4); ST LOUIS ENCEPH AB IGG <1:4 (<1:4); ST LOUIS ENCEPH AB IGM <1:4 (<1:4); WEST EQUINE ENCEPH AB IGG <1:4 (<1:4); WEST EQUINE ENCEPH AB IGM <1:4 (<1:4)
--- NOTE | 2017-05-20 19:17 | PD.CARD.PN ---
Subjective Subjective Remarks No CP, SOB or dizziness Objective Medications Current Medications Medications (Trade) Dose Ordered Sig/Obdulia Route Start Time Stop Time Status Last Admin (Ativan Inj) 1 mg Q5M PRN IV PUSH 05/16/17 19:15 Sodium Chloride 1,000 ml @ 100 mls/hr Q10H IV 05/16/17 19:06 05/20/17 13:06 (NS Flush) 2 ml UNSCH PRN IV FLUSH 05/16/17 19:15 (NS Flush) 2 ml BID IV FLUSH 05/16/17 21:00 05/20/17 09:24 (Zofran Inj) 4 mg Q6H PRN IVP 05/16/17 19:15 (Anahi-Colace) 1 tab BID PO 05/16/17 21:00 05/20/17 09:24 (Milk Of Magnesia Liq) 30 ml Q12H PRN PO 05/16/17 19:15 (Senokot) 17.2 mg Q12H PRN PO 05/16/17 19:15 (Dulcolax Supp) 10 mg DAILY PRN RECTAL 05/16/17 19:15 (Lactulose Liq) 30 ml DAILY PRN PO 05/16/17 19:15 (Tylenol Supp) 650 mg Q6H PRN RECTAL 05/17/17 10:15 05/17/17 10:27 (Morphine Inj) 2 mg Q3H PRN IV PUSH 05/17/17 10:15 05/20/17 12:59 (Morphine Inj) 4 mg Q3H PRN IV PUSH 05/17/17 10:15 05/20/17 03:59 Acetaminophen 100 ml @ 400 mls/hr Q6H PRN IV 05/17/17 16:15 (SEROquel) 300 mg DAILY PO 05/18/17 09:00 05/20/17 09:24 (Norvasc) 10 mg DAILY PO 05/18/17 13:30 05/20/17 09:24 (Synthroid) 75 mcg DAILY@0600 PO 05/19/17 06:00 05/20/17 06:37 (Desyrel) 100 mg HS PO 05/18/17 21:00 05/19/17 20:43 (Neurontin) 100 mg TID PRN PO 05/18/17 14:30 (Protonix) 40 mg Q12HR PO 05/18/17 21:00 05/20/17 09:24 (Synthroid) 100 mcg DAILY@0600 PO 05/19/17 06:00 05/20/17 06:37 (Vasotec Inj) 1.25 mg Q6H PRN IV PUSH 05/18/17 18:45 05/19/17 00:18 (Ativan) 0.5 mg Q8H PRN PO 05/18/17 18:45 (Catapres) 0.1 mg TID PO 05/18/17 18:45 05/20/17 17:08 (Keppra) 1,000 mg Q12HR PO 05/19/17 12:00 05/20/17 09:24 Vital Signs / I&O Vital Signs Date Time Temp Pulse Resp B/P (MAP) Pulse Ox O2 Delivery O2 Flow Rate FiO2 05/20/17 16:14 98.9 90 20 129/9 (49) 98 05/20/17 11:01 98.2 82 20 151/87 (108) 96 05/20/17 09:03 98.0 78 18 174/97 (122) 98 05/20/17 09:03 97 Room Air 05/20/17 06:43 65 05/20/17 06:00 72 05/20/17 05:00 66 05/20/17 04:04 18 05/20/17 04:00 65 05/20/17 03:00 116 05/20/17 02:00 70 05/20/17 01:00 78 05/20/17 00:00 89 05/20/17 00:00 98.5 88 20 162/100 (120) 98 05/19/17 23:00 80 05/19/17 22:00 70 05/19/17 21:00 76 05/19/17 20:00 87 05/19/17 20:00 97.9 83 20 155/93 (113) 97 05/19/17 20:00 Room Air I/O 05/19/17 05/19/17 05/19/17 05/20/17 05/20/17 05/20/17 07:00 15:00 23:00 07:00 15:00 23:00 Intake Total 240 ml 840 ml 480 ml 600 ml Output Total 750 ml 2000 ml 2800 ml 1600 ml Balance -510 ml -1160 ml -2320 ml -1000 ml Intake Oral 240 ml 840 ml 480 ml 600 ml Output Urine Total 750 ml 2000 ml 2800 ml 1600 ml # Voids 1 # Bowel Movements 0 1 2 Physical Exam GENERAL: In NAD SKIN: Warm and dry. HEAD: Normocephalic. EYES: No scleral icterus. No injection or drainage. NECK: Supple, trachea midline. No JVD or lymphadenopathy. CARDIOVASCULAR: Regular rate and rhythm without murmurs, gallops, or rubs. RESPIRATORY: Breath sounds equal bilaterally. No accessory muscle use. GASTROINTESTINAL: Abdomen soft, non-tender, nondistended. MUSCULOSKELETAL: No cyanosis, or edema. Laboratory Laboratory Tests Test 05/20/17 04:53 Potassium Level 3.0 MEQ/L Assessment and Plan Problem List: (1) Encephalopathy ICD Codes: G93.40 - Encephalopathy, unspecified (2) Seizure ICD Codes: R56.9 - Unspecified convulsions Status: Acute (3) Rhabdomyolysis ICD Codes: M62.82 - Rhabdomyolysis Status: Acute (4) Renal insufficiency ICD Codes: N28.9 - Disorder of kidney and ureter, unspecified (5) UTI (urinary tract infection) ICD Codes: N39.0 - Urinary tract infection, site not specified (6) SBO (small bowel obstruction) ICD Codes: K56.609 - Unspecified intestinal obstruction, unspecified as to partial versus complete obstruction Assessment and Plan No new cardiac issues. Mild troponin elevation is nonspecific, unlikely to represent ACS. Continue current program. Increase activity, PT. Neuro eval. Anticipate discharge soon. Will schedule outpt f/u after discharge. Gail Mendoza MD May 20, 2017 19:17
[2017-05-20 19:53] LABS: VDRL CSF NON-REACTIVE (NON-REACTVE)
[2017-05-20] MEDS: traZODone HCL 100 MG TAB PO SCH (21:02)
--- NOTE | 2017-05-20 21:07 | HHI.PR ---
Review/Management Diagnosis seizure--stable on keppra Plan change keppra to PO repeat MRI brain in one weak Diagnosis/Plan: Subjective Subjective Comments No acute events reported No headache No sz. Active Medications Current Medications Medications (Trade) Dose Ordered Sig/Obdulia Route Start Time Stop Time Status Last Admin (Ativan Inj) 1 mg Q5M PRN IV PUSH 05/16/17 19:15 Sodium Chloride 1,000 ml @ 100 mls/hr Q10H IV 05/16/17 19:06 05/20/17 13:06 (NS Flush) 2 ml UNSCH PRN IV FLUSH 05/16/17 19:15 (NS Flush) 2 ml BID IV FLUSH 05/16/17 21:00 05/20/17 09:24 (Zofran Inj) 4 mg Q6H PRN IVP 05/16/17 19:15 (Anahi-Colace) 1 tab BID PO 05/16/17 21:00 05/20/17 09:24 (Milk Of Magnesia Liq) 30 ml Q12H PRN PO 05/16/17 19:15 (Senokot) 17.2 mg Q12H PRN PO 05/16/17 19:15 (Dulcolax Supp) 10 mg DAILY PRN RECTAL 05/16/17 19:15 (Lactulose Liq) 30 ml DAILY PRN PO 05/16/17 19:15 (Tylenol Supp) 650 mg Q6H PRN RECTAL 05/17/17 10:15 05/17/17 10:27 (Morphine Inj) 2 mg Q3H PRN IV PUSH 05/17/17 10:15 05/20/17 12:59 (Morphine Inj) 4 mg Q3H PRN IV PUSH 05/17/17 10:15 05/20/17 03:59 Acetaminophen 100 ml @ 400 mls/hr Q6H PRN IV 05/17/17 16:15 (SEROquel) 300 mg DAILY PO 05/18/17 09:00 05/20/17 09:24 (Norvasc) 10 mg DAILY PO 05/18/17 13:30 05/20/17 09:24 (Synthroid) 75 mcg DAILY@0600 PO 05/19/17 06:00 05/20/17 06:37 (Desyrel) 100 mg HS PO 05/18/17 21:00 05/19/17 20:43 (Neurontin) 100 mg TID PRN PO 05/18/17 14:30 (Protonix) 40 mg Q12HR PO 05/18/17 21:00 05/20/17 09:24 (Synthroid) 100 mcg DAILY@0600 PO 05/19/17 06:00 05/20/17 06:37 (Vasotec Inj) 1.25 mg Q6H PRN IV PUSH 05/18/17 18:45 05/19/17 00:18 (Ativan) 0.5 mg Q8H PRN PO 05/18/17 18:45 (Catapres) 0.1 mg TID PO 05/18/17 18:45 05/20/17 17:08 (Keppra) 1,000 mg Q12HR PO 05/19/17 12:00 05/20/17 09:24 Allergies Allergies Coded Allergies cyclobenzaprine (Verified Allergy, Severe, hives, 03/12/17) paroxetine (Verified Allergy, Severe, rash, 03/12/17) sulfamethoxazole (Verified Allergy, Severe, rash, 03/12/17) trimethoprim (Verified Allergy, Intermediate, rash, 03/12/17) codeine (Verified Adverse Reaction, Severe, NAUSEA, 03/12/17) Review of Systems All other ROS: ROS reviewed as documented in chart Exam I&O / VS 05/20/17 05/20/17 05/21/17 15:00 23:00 07:00 Intake Total 600 ml Output Total 1600 ml Balance -1000 ml Intake Oral 600 ml Output Urine Total 1600 ml # Bowel Movements 2 Vital Signs Date Time Temp Pulse Resp B/P (MAP) Pulse Ox O2 Delivery O2 Flow Rate FiO2 05/20/17 20:57 98.7 96 18 170/114 (132) 96 05/20/17 16:14 98.9 90 20 129/9 (49) 98 05/20/17 11:01 98.2 82 20 151/87 (108) 96 05/20/17 09:03 98.0 78 18 174/97 (122) 98 05/20/17 09:03 97 Room Air 05/20/17 06:43 65 05/20/17 06:00 72 05/20/17 05:00 66 05/20/17 04:04 18 05/20/17 04:00 65 05/20/17 03:00 116 05/20/17 02:00 70 05/20/17 01:00 78 05/20/17 00:00 89 05/20/17 00:00 98.5 88 20 162/100 (120) 98 05/19/17 23:00 80 05/19/17 22:00 70 General: Alert and Oriented, No acute distress Eye: PERRL, EOMI Respiratory: Non-labored respirations Cardiology: Normal rate Neurologic: Alert, Normal sensory, Normal motor, No focal defects, CN II-XII intact Psychiatric: Cooperative Exam Comments alert, oriented to self and place, speech normal and follows commands CN intact MOTOR 5/5 BUE Objective Micro and Labs Laboratory Tests Test 05/20/17 04:53 Potassium Level 3.0 Date/Time Source Procedure Growth Status 05/16/17 13:00 Blood Peripheral Aerobic Blood Culture - Preliminary NO GROWTH IN 4 DAYS Resulted 05/16/17 13:00 Blood Peripheral Anaerobic Blood Culture - Preliminary NO GROWTH IN 4 DAYS Resulted 05/18/17 10:05 Cerebral Spinal Fluid Lumbar Puncture Fungal Smear - Final NO FUNGAL ELEMENTS SEEN. Resulted 05/18/17 10:05 Cerebral Spinal Fluid Lumbar Puncture Fungal Culture Pending Resulted 05/16/17 13:00 Urine Catheterized Urine Urine Culture - Final NO GROWTH IN 48 HOURS. Complete Richie Aceves MD PhD May 20, 2017 21:07
[2017-05-21] VITALS (10 sets, daily range): BP systolic 123–188; BP diastolic 75–113; PULSE 63–95; RESP 16–18; TEMP 98.1–98.7; O2SAT 96–98
[2017-05-21] MEDS: MORPHINE SULFATE 4 MG/ML INJ IV PUSH PRN ×6 (00:29→20:50)
[2017-05-21] MEDS: ENALAPRILAT 1.25 MG/ML VIAL IV PUSH PRN (00:29)
[2017-05-21] MEDS: LEVOTHYROXINE SODIUM 75 MCG TAB PO SCH (05:03)
[2017-05-21] MEDS: LEVOTHYROXINE SODIUM 100 MCG TAB PO SCH (05:03)
[2017-05-21] MEDS: PANTOPRAZOLE SOD 40 MG DELAYED RELEASE TAB PO SCH ×2 (09:49→20:49)
[2017-05-21] MEDS: DOCUSATE SODIUM 50 MG/SENNA 8.6 MG TAB PO SCH ×2 (09:49→20:49)
[2017-05-21] MEDS: cloNIDine HCL 0.1 MG TAB PO SCH ×3 (09:49→17:37)
[2017-05-21] MEDS: SODIUM CHLORIDE 0.9% FLUSH 10 ML FLUSH IV FLUSH SCH ×2 (09:49→20:50)
[2017-05-21] MEDS: levETIRAcetam 500 MG TAB PO SCH ×2 (09:49→20:49)
[2017-05-21] MEDS: SODIUM CHLOR 0.9% 1000 ML INJ 1,000 ML IV SCH (09:55)
[2017-05-21 10:40] LABS: CSF CRYPTOCOCCUS AG CONF ND (NOT DETECTD)
[2017-05-21] MEDS ORDERED: GABA100C4 PO (12:57)
[2017-05-21] MEDS ORDERED: SYNT175T PO (12:57)
[2017-05-21] MEDS ORDERED: LEVE500 PO (12:57)
[2017-05-21] MEDS: QUEtiapine FUMARATE 300 MG TAB PO SCH (13:26)
--- NOTE | 2017-05-21 17:07 | PD.CARD.PN ---
Subjective Subjective Remarks No CP, SOB or dizziness, c/o back pain Objective Medications Current Medications Medications (Trade) Dose Ordered Sig/Obdulia Route Start Time Stop Time Status Last Admin (Ativan Inj) 1 mg Q5M PRN IV PUSH 05/16/17 19:15 Sodium Chloride 1,000 ml @ 100 mls/hr Q10H IV 05/16/17 19:06 05/21/17 09:55 (NS Flush) 2 ml UNSCH PRN IV FLUSH 05/16/17 19:15 (NS Flush) 2 ml BID IV FLUSH 05/16/17 21:00 05/21/17 09:49 (Zofran Inj) 4 mg Q6H PRN IVP 05/16/17 19:15 (Anahi-Colace) 1 tab BID PO 05/16/17 21:00 05/21/17 09:49 (Milk Of Magnesia Liq) 30 ml Q12H PRN PO 05/16/17 19:15 (Senokot) 17.2 mg Q12H PRN PO 05/16/17 19:15 (Dulcolax Supp) 10 mg DAILY PRN RECTAL 05/16/17 19:15 (Lactulose Liq) 30 ml DAILY PRN PO 05/16/17 19:15 (Tylenol Supp) 650 mg Q6H PRN RECTAL 05/17/17 10:15 05/17/17 10:27 (Morphine Inj) 2 mg Q3H PRN IV PUSH 05/17/17 10:15 05/20/17 12:59 (Morphine Inj) 4 mg Q3H PRN IV PUSH 05/17/17 10:15 05/21/17 13:28 Acetaminophen 100 ml @ 400 mls/hr Q6H PRN IV 05/17/17 16:15 (SEROquel) 300 mg DAILY PO 05/18/17 09:00 05/21/17 13:26 (Norvasc) 10 mg DAILY PO 05/18/17 13:30 05/21/17 09:49 (Synthroid) 75 mcg DAILY@0600 PO 05/19/17 06:00 05/21/17 05:03 (Desyrel) 100 mg HS PO 05/18/17 21:00 05/20/17 21:02 (Neurontin) 100 mg TID PRN PO 05/18/17 14:30 (Protonix) 40 mg Q12HR PO 05/18/17 21:00 05/21/17 09:49 (Synthroid) 100 mcg DAILY@0600 PO 05/19/17 06:00 05/21/17 05:03 (Vasotec Inj) 1.25 mg Q6H PRN IV PUSH 05/18/17 18:45 05/21/17 00:29 (Ativan) 0.5 mg Q8H PRN PO 05/18/17 18:45 (Catapres) 0.1 mg TID PO 05/18/17 18:45 05/21/17 13:26 (Keppra) 1,000 mg Q12HR PO 05/19/17 12:00 05/21/17 09:49 Vital Signs / I&O Vital Signs Date Time Temp Pulse Resp B/P (MAP) Pulse Ox O2 Delivery O2 Flow Rate FiO2 05/21/17 12:40 98.1 95 16 148/88 (108) 98 05/21/17 07:00 66 05/21/17 07:00 98 Room Air 05/21/17 04:59 98.6 72 16 153/91 (111) 96 05/21/17 04:00 63 05/21/17 00:37 152/100 (117) 05/21/17 00:23 98.6 72 16 188/113 (138) 96 05/20/17 20:57 98.7 96 18 170/114 (132) 96 05/20/17 20:55 Room Air I/O 05/20/17 05/20/17 05/20/17 05/21/17 05/21/17 05/21/17 07:00 15:00 23:00 07:00 15:00 23:00 Intake Total 480 ml 600 ml 480 ml Output Total 2800 ml 1600 ml 450 ml Balance -2320 ml -1000 ml 30 ml Intake Oral 480 ml 600 ml 480 ml Output Urine Total 2800 ml 1600 ml 450 ml # Voids 1 # Bowel Movements 1 2 Physical Exam GENERAL: In NAD SKIN: Warm and dry. HEAD: Normocephalic. EYES: No scleral icterus. No injection or drainage. NECK: Supple, trachea midline. No JVD or lymphadenopathy. CARDIOVASCULAR: Regular rate and rhythm without murmurs, gallops, or rubs. RESPIRATORY: Breath sounds equal bilaterally. No accessory muscle use. GASTROINTESTINAL: Abdomen soft, non-tender, nondistended. MUSCULOSKELETAL: No cyanosis, or edema. Laboratory Laboratory Tests Test 05/21/17 06:07 Potassium Level 3.4 MEQ/L Assessment and Plan Problem List: (1) Encephalopathy ICD Codes: G93.40 - Encephalopathy, unspecified (2) Seizure ICD Codes: R56.9 - Unspecified convulsions Status: Acute (3) Rhabdomyolysis ICD Codes: M62.82 - Rhabdomyolysis Status: Acute (4) Renal insufficiency ICD Codes: N28.9 - Disorder of kidney and ureter, unspecified (5) UTI (urinary tract infection) ICD Codes: N39.0 - Urinary tract infection, site not specified (6) SBO (small bowel obstruction) ICD Codes: K56.609 - Unspecified intestinal obstruction, unspecified as to partial versus complete obstruction Assessment and Plan Remains stable from cardiac standpoint. Continue current program. Increase activity, PT. Anticipate discharge to rehab soon. Will schedule outpt f/u after discharge. Gail Mendoza MD May 21, 2017 17:07
--- NOTE | 2017-05-21 18:20 | HHI.PR ---
Subjective Remarks Resting comfortably in bed No event overnight Denied chest and or short of breath No fever or chills Objective Vitals Vital Signs Date Time Temp Pulse Resp B/P (MAP) Pulse Ox O2 Delivery O2 Flow Rate FiO2 05/21/17 12:40 98.1 95 16 148/88 (108) 98 05/21/17 07:00 66 05/21/17 07:00 98 Room Air 05/21/17 04:59 98.6 72 16 153/91 (111) 96 05/21/17 04:00 63 05/21/17 00:37 152/100 (117) 05/21/17 00:23 98.6 72 16 188/113 (138) 96 05/20/17 20:57 98.7 96 18 170/114 (132) 96 05/20/17 20:55 Room Air I/O 05/20/17 05/20/17 05/20/17 05/21/17 05/21/17 05/21/17 07:00 15:00 23:00 07:00 15:00 23:00 Intake Total 480 ml 600 ml 480 ml 820 ml Output Total 2800 ml 1600 ml 450 ml Balance -2320 ml -1000 ml 30 ml 820 ml Intake Oral 480 ml 600 ml 480 ml IV Total 820 ml Output Urine Total 2800 ml 1600 ml 450 ml # Voids 1 # Bowel Movements 1 2 Result Diagram: 05/19/17 0516 05/21/17 0607 Objective Remarks GENERAL: This is a well-nourished, well-developed patient, in no apparent distress. SKIN: No rashes, warm and dry HEAD: Atraumatic. Normocephalic. EYES: Pupils equal round and reactive. Extraocular motions intact. No scleral icterus. ENT: Nose without bleeding, or drainage, Airway patent. NECK: Trachea midline. Supple CARDIOVASCULAR: Regular rate and rhythm without murmurs, gallops, or rubs. RESPIRATORY: Fair air entry bilaterally. No wheezes, rales, or rhonchi. GASTROINTESTINAL: Abdomen soft, non-tender, nondistended. Positive bowel sounds MUSCULOSKELETAL: Extremities without clubbing, cyanosis, or edema. Pedal pulses appreciated NEUROLOGICAL: Awake and alert. Moves all extremity. Normal speech.no focal neurological deficit Procedures LP A/P Problem List: (1) Encephalopathy ICD Code: G93.40 - Encephalopathy, unspecified (2) SBO (small bowel obstruction) ICD Code: K56.609 - Unspecified intestinal obstruction, unspecified as to partial versus complete obstruction (3) Seizure ICD Code: R56.9 - Unspecified convulsions Status: Acute (4) Lactic acidosis ICD Code: E87.2 - Acidosis (5) UTI (urinary tract infection) ICD Code: N39.0 - Urinary tract infection, site not specified (6) Renal insufficiency ICD Code: N28.9 - Disorder of kidney and ureter, unspecified (7) Rhabdomyolysis ICD Code: M62.82 - Rhabdomyolysis Status: Acute Assessment and Plan 05/21: Continue current care, discussed with case aide regarding discharge to rehab today A/P: Encephalopathy- has improved. Likely multifactorial-medication related, UTI and acute seizure w/ post-ictal state. - Neuro checks. - Hold sedating home medications for the time being until mental status improves. Resumed trazodone and gabapentin at lower doses. - d/c restraints as tolerated. Seizure Disorder With breakthrough seizure, seizure x2 while in ER, s/p Ativan 6mg. Per review of records, previous EEG 07/13/16 w/ mild encephalopathy suggesting cortical irritability, improved from previous EEG. EEG 03/09/17 w/ no seizure activity. - Seizure precautions, Ativan prn. -s/p LP. - continue Keppra. -HSV PCR negative; will dc Acyclovir. -MRI brain in one week- per neurology. SBO- improved. CT Abd/Pelvis w/ dilated loops of small bowel, likely ileus/obstruction. - continue to advance the diet. - PPI. -evaluated by surgery and signed off. Rhabdomyolysis Likely secondary to seizure activity/dehydration. - improved with IVFs. Hypothyroidism TSH low. - decreased levothyroxine to 175 mcg daily. Electrolyte abnormalities Likely s/t decreased PO intake. - replete and monitor as needed. - telemetry. PPx: SCDs continue PT. Discharge Planning To rehab Cale Arguello MD May 21, 2017 18:20
[2017-05-21] MEDS: traZODone HCL 100 MG TAB PO SCH (20:49)
[2017-05-22] VITALS (8 sets, daily range): BP systolic 101–171; BP diastolic 75–103; PULSE 64–91; RESP 16; TEMP 97.8–98.5; O2SAT 95–97
[2017-05-22] MEDS: MORPHINE SULFATE 4 MG/ML INJ IV PUSH PRN ×5 (00:26→21:07)
[2017-05-22] MEDS: LEVOTHYROXINE SODIUM 75 MCG TAB PO SCH (05:22)
[2017-05-22] MEDS: LEVOTHYROXINE SODIUM 100 MCG TAB PO SCH (05:22)
[2017-05-22] MEDS: levETIRAcetam 500 MG TAB PO SCH ×2 (08:28→21:06)
[2017-05-22] MEDS: QUEtiapine FUMARATE 300 MG TAB PO SCH (08:28)
[2017-05-22] MEDS: DOCUSATE SODIUM 50 MG/SENNA 8.6 MG TAB PO SCH ×2 (08:28→21:06)
[2017-05-22] MEDS: cloNIDine HCL 0.1 MG TAB PO SCH ×3 (08:28→18:00)
[2017-05-22] MEDS: PANTOPRAZOLE SOD 40 MG DELAYED RELEASE TAB PO SCH ×2 (08:29→21:07)
[2017-05-22] MEDS: SODIUM CHLORIDE 0.9% FLUSH 10 ML FLUSH IV FLUSH SCH ×2 (08:30→21:07)
[2017-05-22] MEDS: ONDANSETRON HCL 4 MG/2 ML VIAL IVP PRN (09:38)
--- NOTE | 2017-05-22 16:43 | HHI.PR ---
Subjective Remarks Patient doing well, stable, she was discharged yesterday however we are waiting on insurance authorization Objective Vitals Vital Signs Date Time Temp Pulse Resp B/P (MAP) Pulse Ox O2 Delivery O2 Flow Rate FiO2 05/22/17 11:38 97.9 83 16 101/75 (84) 95 05/22/17 08:22 Room Air 05/22/17 08:22 98.2 78 16 144/103 (117) 95 05/22/17 05:20 98.3 71 16 171/102 (125) 97 05/22/17 04:00 64 05/22/17 00:22 97.8 78 16 151/87 (108) 96 05/22/17 00:00 68 05/21/17 20:42 98.7 77 18 123/75 (91) 96 05/21/17 20:40 Room Air 05/21/17 20:00 84 I/O 05/21/17 05/21/17 05/21/17 05/22/17 05/22/17 05/22/17 07:00 15:00 23:00 07:00 15:00 23:00 Intake Total 480 ml 1780 ml 480 ml Output Total 450 ml 1 ml 600 ml Balance 30 ml 1779 ml -120 ml Intake Oral 480 ml 960 ml 480 ml IV Total 820 ml Output Urine Total 450 ml 600 ml Stool Total 1 ml # Voids 5 Result Diagram: 05/19/17 0516 05/21/17 0607 Objective Remarks GENERAL: This is a well-nourished, well-developed patient, in no apparent distress. CARDIOVASCULAR: Regular rate and rhythm without murmurs, gallops, or rubs. RESPIRATORY: Clear to auscultation. Breath sounds equal bilaterally. No wheezes , rales, or rhonchi. GASTROINTESTINAL: Abdomen soft, non-tender, nondistended. Normal active bowel sounds MUSCULOSKELETAL: Extremities without clubbing, cyanosis, or edema. NEURO: Alert & Oriented x4 to person, place, time, situation. Moves all ext x4 Procedures LP A/P Problem List: (1) Encephalopathy ICD Code: G93.40 - Encephalopathy, unspecified (2) SBO (small bowel obstruction) ICD Code: K56.609 - Unspecified intestinal obstruction, unspecified as to partial versus complete obstruction (3) Seizure ICD Code: R56.9 - Unspecified convulsions Status: Acute (4) Lactic acidosis ICD Code: E87.2 - Acidosis (5) UTI (urinary tract infection) ICD Code: N39.0 - Urinary tract infection, site not specified (6) Renal insufficiency ICD Code: N28.9 - Disorder of kidney and ureter, unspecified (7) Rhabdomyolysis ICD Code: M62.82 - Rhabdomyolysis Status: Acute Assessment and Plan 05/22: No acute issues continue efforts for discharge A/P: Encephalopathy- has improved. Likely multifactorial-medication related, UTI and acute seizure w/ post-ictal state. - Neuro checks. - Hold sedating home medications for the time being until mental status improves. Resumed trazodone and gabapentin at lower doses. Seizure Disorder With breakthrough seizure, seizure x2 while in ER, s/p Ativan 6mg. Per review of records, previous EEG 07/13/16 w/ mild encephalopathy suggesting cortical irritability, improved from previous EEG. EEG 03/09/17 w/ no seizure activity. - Seizure precautions, Ativan prn. -s/p LP. - continue Keppra. -HSV PCR negative; will dc Acyclovir. -MRI brain in one week- per neurology. SBO- improved. CT Abd/Pelvis w/ dilated loops of small bowel, likely ileus/obstruction. - continue to advance the diet. - PPI. -evaluated by surgery and signed off. Rhabdomyolysis Likely secondary to seizure activity/dehydration. - improved with IVFs. Hypothyroidism TSH low. - decreased levothyroxine to 175 mcg daily. Electrolyte abnormalities Likely s/t decreased PO intake. - replete and monitor as needed. - telemetry. PPx: SCDs continue PT. Cale Arguello MD May 22, 2017 16:43
--- NOTE | 2017-05-22 18:57 | PD.CARD.PN ---
Subjective Subjective Remarks No CP, SOB or dizziness, c/o abd pain Objective Medications Current Medications Medications (Trade) Dose Ordered Sig/Obdulia Route Start Time Stop Time Status Last Admin (Ativan Inj) 1 mg Q5M PRN IV PUSH 05/16/17 19:15 (NS Flush) 2 ml UNSCH PRN IV FLUSH 05/16/17 19:15 (NS Flush) 2 ml BID IV FLUSH 05/16/17 21:00 05/22/17 08:30 (Zofran Inj) 4 mg Q6H PRN IVP 05/16/17 19:15 05/22/17 09:38 (Anahi-Colace) 1 tab BID PO 05/16/17 21:00 05/22/17 08:28 (Milk Of Magnesia Liq) 30 ml Q12H PRN PO 05/16/17 19:15 (Senokot) 17.2 mg Q12H PRN PO 05/16/17 19:15 (Dulcolax Supp) 10 mg DAILY PRN RECTAL 05/16/17 19:15 (Lactulose Liq) 30 ml DAILY PRN PO 05/16/17 19:15 (Tylenol Supp) 650 mg Q6H PRN RECTAL 05/17/17 10:15 05/17/17 10:27 (Morphine Inj) 2 mg Q3H PRN IV PUSH 05/17/17 10:15 05/20/17 12:59 (Morphine Inj) 4 mg Q3H PRN IV PUSH 05/17/17 10:15 05/22/17 13:07 Acetaminophen 100 ml @ 400 mls/hr Q6H PRN IV 05/17/17 16:15 (SEROquel) 300 mg DAILY PO 05/18/17 09:00 05/22/17 08:28 (Norvasc) 10 mg DAILY PO 05/18/17 13:30 05/22/17 08:29 (Synthroid) 75 mcg DAILY@0600 PO 05/19/17 06:00 05/22/17 05:22 (Desyrel) 100 mg HS PO 05/18/17 21:00 05/21/17 20:49 (Neurontin) 100 mg TID PRN PO 05/18/17 14:30 (Protonix) 40 mg Q12HR PO 05/18/17 21:00 05/22/17 08:29 (Synthroid) 100 mcg DAILY@0600 PO 05/19/17 06:00 05/22/17 05:22 (Vasotec Inj) 1.25 mg Q6H PRN IV PUSH 05/18/17 18:45 05/21/17 00:29 (Ativan) 0.5 mg Q8H PRN PO 05/18/17 18:45 (Catapres) 0.1 mg TID PO 05/18/17 18:45 05/22/17 08:28 (Keppra) 1,000 mg Q12HR PO 05/19/17 12:00 05/22/17 08:28 Vital Signs / I&O Vital Signs Date Time Temp Pulse Resp B/P (MAP) Pulse Ox O2 Delivery O2 Flow Rate FiO2 05/22/17 16:46 98.5 91 16 109/77 (88) 95 05/22/17 11:38 97.9 83 16 101/75 (84) 95 05/22/17 08:22 Room Air 05/22/17 08:22 98.2 78 16 144/103 (117) 95 05/22/17 05:20 98.3 71 16 171/102 (125) 97 05/22/17 04:00 64 05/22/17 00:22 97.8 78 16 151/87 (108) 96 05/22/17 00:00 68 05/21/17 20:42 98.7 77 18 123/75 (91) 96 05/21/17 20:40 Room Air 05/21/17 20:00 84 I/O 05/21/17 05/21/17 05/21/17 05/22/17 05/22/17 05/22/17 07:00 15:00 23:00 07:00 15:00 23:00 Intake Total 480 ml 1780 ml 480 ml Output Total 450 ml 1 ml 600 ml Balance 30 ml 1779 ml -120 ml Intake Oral 480 ml 960 ml 480 ml IV Total 820 ml Output Urine Total 450 ml 600 ml Stool Total 1 ml # Voids 5 Physical Exam GENERAL: In NAD SKIN: Warm and dry. HEAD: Normocephalic. EYES: No scleral icterus. No injection or drainage. NECK: Supple, trachea midline. No JVD or lymphadenopathy. CARDIOVASCULAR: Regular rate and rhythm without murmurs, gallops, or rubs. RESPIRATORY: Breath sounds equal bilaterally. No accessory muscle use. GASTROINTESTINAL: Abdomen soft, non-tender, nondistended. MUSCULOSKELETAL: No cyanosis, or edema. Assessment and Plan Problem List: (1) Encephalopathy ICD Codes: G93.40 - Encephalopathy, unspecified (2) Seizure ICD Codes: R56.9 - Unspecified convulsions Status: Acute (3) Rhabdomyolysis ICD Codes: M62.82 - Rhabdomyolysis Status: Acute (4) Renal insufficiency ICD Codes: N28.9 - Disorder of kidney and ureter, unspecified (5) UTI (urinary tract infection) ICD Codes: N39.0 - Urinary tract infection, site not specified (6) SBO (small bowel obstruction) ICD Codes: K56.609 - Unspecified intestinal obstruction, unspecified as to partial versus complete obstruction Assessment and Plan No new cardiac issues. Continue current program. Increase activity, PT. Anticipate discharge to rehab. Will schedule outpt f/u after discharge from rehab. Gail Mendoza MD May 22, 2017 18:57
[2017-05-22] MEDS: traZODone HCL 100 MG TAB PO SCH (21:06)
[2017-05-23] VITALS (16 sets, daily range): BP systolic 91–122; BP diastolic 60–80; PULSE 68–90; RESP 16; TEMP 97.4–98.1; O2SAT 93–96
[2017-05-23] MEDS: MORPHINE SULFATE 4 MG/ML INJ IV PUSH PRN ×6 (00:50→23:58)
[2017-05-23] MEDS: LEVOTHYROXINE SODIUM 100 MCG TAB PO SCH (06:39)
[2017-05-23] MEDS: LEVOTHYROXINE SODIUM 75 MCG TAB PO SCH (06:39)
[2017-05-23] MEDS: DOCUSATE SODIUM 50 MG/SENNA 8.6 MG TAB PO SCH ×2 (08:39→20:44)
[2017-05-23] MEDS: levETIRAcetam 500 MG TAB PO SCH ×2 (08:39→20:44)
[2017-05-23] MEDS: cloNIDine HCL 0.1 MG TAB PO SCH (08:39)
[2017-05-23] MEDS: PANTOPRAZOLE SOD 40 MG DELAYED RELEASE TAB PO SCH ×2 (08:39→20:44)
[2017-05-23] MEDS: QUEtiapine FUMARATE 300 MG TAB PO SCH (08:39)
[2017-05-23] MEDS: SODIUM CHLORIDE 0.9% FLUSH 10 ML FLUSH IV FLUSH SCH ×2 (08:46→20:45)
--- NOTE | 2017-05-23 19:18 | PD.CARD.PN ---
Subjective Subjective Remarks No CP, SOB or dizziness, c/o pain all over Objective Medications Current Medications Medications (Trade) Dose Ordered Sig/Obdulia Route Start Time Stop Time Status Last Admin (Ativan Inj) 1 mg Q5M PRN IV PUSH 05/16/17 19:15 (NS Flush) 2 ml UNSCH PRN IV FLUSH 05/16/17 19:15 (NS Flush) 2 ml BID IV FLUSH 05/16/17 21:00 05/23/17 08:46 (Zofran Inj) 4 mg Q6H PRN IVP 05/16/17 19:15 05/22/17 09:38 (Anahi-Colace) 1 tab BID PO 05/16/17 21:00 05/23/17 08:39 (Milk Of Magnesia Liq) 30 ml Q12H PRN PO 05/16/17 19:15 (Senokot) 17.2 mg Q12H PRN PO 05/16/17 19:15 (Dulcolax Supp) 10 mg DAILY PRN RECTAL 05/16/17 19:15 (Lactulose Liq) 30 ml DAILY PRN PO 05/16/17 19:15 (Tylenol Supp) 650 mg Q6H PRN RECTAL 05/17/17 10:15 05/17/17 10:27 (Morphine Inj) 2 mg Q3H PRN IV PUSH 05/17/17 10:15 05/20/17 12:59 (Morphine Inj) 4 mg Q3H PRN IV PUSH 05/17/17 10:15 05/23/17 16:33 Acetaminophen 100 ml @ 400 mls/hr Q6H PRN IV 05/17/17 16:15 (SEROquel) 300 mg DAILY PO 05/18/17 09:00 05/23/17 08:39 (Norvasc) 10 mg DAILY PO 05/18/17 13:30 05/23/17 08:39 (Synthroid) 75 mcg DAILY@0600 PO 05/19/17 06:00 05/23/17 06:39 (Desyrel) 100 mg HS PO 05/18/17 21:00 05/22/17 21:06 (Neurontin) 100 mg TID PRN PO 05/18/17 14:30 (Protonix) 40 mg Q12HR PO 05/18/17 21:00 05/23/17 08:39 (Synthroid) 100 mcg DAILY@0600 PO 05/19/17 06:00 05/23/17 06:39 (Vasotec Inj) 1.25 mg Q6H PRN IV PUSH 05/18/17 18:45 05/21/17 00:29 (Ativan) 0.5 mg Q8H PRN PO 05/18/17 18:45 (Catapres) 0.1 mg TID PO 05/18/17 18:45 Future Hold 05/23/17 08:39 (Keppra) 1,000 mg Q12HR PO 05/19/17 12:00 05/23/17 08:39 Vital Signs / I&O Vital Signs Date Time Temp Pulse Resp B/P (MAP) Pulse Ox O2 Delivery O2 Flow Rate FiO2 05/23/17 16:26 98.1 78 16 122/66 (84) 96 05/23/17 16:20 94/60 (71) 05/23/17 13:01 91/63 (72) 05/23/17 11:53 97.4 78 16 94/62 (73) 93 05/23/17 08:33 98.0 90 16 111/80 (90) 95 05/23/17 08:33 Room Air 05/23/17 06:35 97.7 78 16 104/68 (80) 93 05/23/17 04:00 70 05/23/17 03:58 18 05/23/17 00:42 97.5 85 16 118/78 (91) 95 05/23/17 00:00 71 05/22/17 20:00 81 05/22/17 20:00 Room Air 21 I/O 05/22/17 05/22/17 05/22/17 05/23/17 05/23/17 05/23/17 07:00 15:00 23:00 07:00 15:00 23:00 Intake Total 480 ml 960 ml 240 ml 1440 ml Output Total 600 ml 500 ml Balance -120 ml 960 ml -260 ml 1440 ml Intake Oral 480 ml 960 ml 240 ml 1440 ml Output Urine Total 600 ml 500 ml # Voids 8 5 # Bowel Movements 0 Physical Exam GENERAL: In NAD SKIN: Warm and dry. HEAD: Normocephalic. EYES: No scleral icterus. No injection or drainage. NECK: Supple, trachea midline. No JVD or lymphadenopathy. CARDIOVASCULAR: Regular rate and rhythm without murmurs, gallops, or rubs. RESPIRATORY: Breath sounds equal bilaterally. No accessory muscle use. GASTROINTESTINAL: Abdomen soft, non-tender, nondistended. MUSCULOSKELETAL: No cyanosis, or edema. Assessment and Plan Problem List: (1) Encephalopathy ICD Codes: G93.40 - Encephalopathy, unspecified (2) Seizure ICD Codes: R56.9 - Unspecified convulsions Status: Acute (3) Rhabdomyolysis ICD Codes: M62.82 - Rhabdomyolysis Status: Acute (4) Renal insufficiency ICD Codes: N28.9 - Disorder of kidney and ureter, unspecified (5) UTI (urinary tract infection) ICD Codes: N39.0 - Urinary tract infection, site not specified (6) SBO (small bowel obstruction) ICD Codes: K56.609 - Unspecified intestinal obstruction, unspecified as to partial versus complete obstruction Assessment and Plan Remains stable from cardiac standpoint. Continue current program. Increase activity, PT. Anticipate discharge to rehab soon. Will schedule outpt f/u after discharge from rehab. Gail Mendoza MD May 23, 2017 19:18
[2017-05-23] MEDS: traZODone HCL 100 MG TAB PO SCH (20:44)
--- NOTE | 2017-05-23 23:45 | HHI.PR ---
Subjective Remarks Patient denies acute complaints, except for body aching, blood pressure on the lower side we will then hold clonidine, continue efforts toward discharge to rehab Objective Vitals Vital Signs Date Time Temp Pulse Resp B/P (MAP) Pulse Ox O2 Delivery O2 Flow Rate FiO2 05/23/17 22:08 69 05/23/17 21:01 85 05/23/17 20:41 97.7 78 16 105/63 (77) 95 05/23/17 20:10 87 05/23/17 19:05 78 05/23/17 16:26 98.1 78 16 122/66 (84) 96 05/23/17 16:20 94/60 (71) 05/23/17 13:01 91/63 (72) 05/23/17 11:53 97.4 78 16 94/62 (73) 93 05/23/17 08:33 98.0 90 16 111/80 (90) 95 05/23/17 08:33 Room Air 05/23/17 06:35 97.7 78 16 104/68 (80) 93 05/23/17 04:00 70 05/23/17 03:58 18 05/23/17 00:42 97.5 85 16 118/78 (91) 95 05/23/17 00:00 71 I/O 05/23/17 05/23/17 05/23/17 05/24/17 05/24/17 05/24/17 07:00 15:00 23:00 07:00 15:00 23:00 Intake Total 240 ml 1440 ml Output Total 500 ml Balance -260 ml 1440 ml Intake Oral 240 ml 1440 ml Output Urine Total 500 ml # Voids 5 # Bowel Movements 0 Result Diagram: 05/19/17 0516 05/21/17 0607 Objective Remarks GENERAL: This is a well-nourished, well-developed patient, in no apparent distress. Procedures LP A/P Problem List: (1) Encephalopathy ICD Code: G93.40 - Encephalopathy, unspecified (2) SBO (small bowel obstruction) ICD Code: K56.609 - Unspecified intestinal obstruction, unspecified as to partial versus complete obstruction (3) Seizure ICD Code: R56.9 - Unspecified convulsions Status: Acute (4) Lactic acidosis ICD Code: E87.2 - Acidosis (5) UTI (urinary tract infection) ICD Code: N39.0 - Urinary tract infection, site not specified (6) Renal insufficiency ICD Code: N28.9 - Disorder of kidney and ureter, unspecified (7) Rhabdomyolysis ICD Code: M62.82 - Rhabdomyolysis Status: Acute Assessment and Plan 05/23: Hold clonidine due to low blood pressure, awaiting authorization to discharge to rehab Encephalopathy- has improved. Likely multifactorial-medication related, UTI and acute seizure w/ post-ictal state. - Neuro checks. - Hold sedating home medications for the time being until mental status improves. Resumed trazodone and gabapentin at lower doses. - d/c restraints as tolerated. Seizure Disorder With breakthrough seizure, seizure x2 while in ER, s/p Ativan 6mg. Per review of records, previous EEG 07/13/16 w/ mild encephalopathy suggesting cortical irritability, improved from previous EEG. EEG 03/09/17 w/ no seizure activity. - Seizure precautions, Ativan prn. -s/p LP. - continue Keppra. -HSV PCR negative; will dc Acyclovir. -MRI brain in one week- per neurology. SBO- improved. CT Abd/Pelvis w/ dilated loops of small bowel, likely ileus/obstruction. - continue to advance the diet. - PPI. -evaluated by surgery and signed off. Rhabdomyolysis Likely secondary to seizure activity/dehydration. - improved with IVFs. Hypothyroidism TSH low. - decreased levothyroxine to 175 mcg daily. Electrolyte abnormalities Likely s/t decreased PO intake. - replete and monitor as needed. - telemetry. PPx: SCDs continue PT. Cale Arguello MD May 23, 2017 23:45
[2017-05-23] MEDS: ONDANSETRON HCL 4 MG/2 ML VIAL IVP PRN (23:55)
[2017-05-24] VITALS (19 sets, daily range): BP systolic 102–119; BP diastolic 63–77; PULSE 65–92; RESP 16; TEMP 97.5–98.4; O2SAT 93–97
[2017-05-24] MEDS: MORPHINE SULFATE 4 MG/ML INJ IV PUSH PRN ×2 (02:57→08:35)
[2017-05-24] MEDS: LEVOTHYROXINE SODIUM 75 MCG TAB PO SCH (05:48)
[2017-05-24] MEDS: LEVOTHYROXINE SODIUM 100 MCG TAB PO SCH (05:48)
[2017-05-24] MEDS: QUEtiapine FUMARATE 300 MG TAB PO SCH (08:35)
[2017-05-24] MEDS: PANTOPRAZOLE SOD 40 MG DELAYED RELEASE TAB PO SCH ×2 (08:35→21:34)
[2017-05-24] MEDS: DOCUSATE SODIUM 50 MG/SENNA 8.6 MG TAB PO SCH ×2 (08:35→21:33)
[2017-05-24] MEDS: levETIRAcetam 500 MG TAB PO SCH ×2 (08:35→21:33)
[2017-05-24] MEDS: SODIUM CHLORIDE 0.9% FLUSH 10 ML FLUSH IV FLUSH SCH ×2 (08:38→21:36)
[2017-05-24] MEDS ORDERED: ACETAMINOPHEN/HYDROcodone 325 MG/5 MG TAB PO PRN (09:45)
[2017-05-24] MEDS ORDERED: MORPHINE SULFATE 4 MG/ML INJ IV PUSH PRN (09:45)
[2017-05-24] MEDS: ACETAMINOPHEN/HYDROcodone 325 MG/7.5 MG TAB PO PRN ×2 (12:06→21:33)
--- NOTE | 2017-05-24 14:39 | PD.CARD.PN ---
Subjective Subjective Remarks No CP, SOB or dizziness, feels better Objective Medications Current Medications Medications (Trade) Dose Ordered Sig/Obdulia Route Start Time Stop Time Status Last Admin (Ativan Inj) 1 mg Q5M PRN IV PUSH 05/16/17 19:15 (NS Flush) 2 ml UNSCH PRN IV FLUSH 05/16/17 19:15 05/23/17 23:58 (NS Flush) 2 ml BID IV FLUSH 05/16/17 21:00 05/24/17 08:38 (Zofran Inj) 4 mg Q6H PRN IVP 05/16/17 19:15 05/23/17 23:55 (Anahi-Colace) 1 tab BID PO 05/16/17 21:00 05/24/17 08:35 (Milk Of Magnesia Liq) 30 ml Q12H PRN PO 05/16/17 19:15 (Senokot) 17.2 mg Q12H PRN PO 05/16/17 19:15 (Dulcolax Supp) 10 mg DAILY PRN RECTAL 05/16/17 19:15 (Lactulose Liq) 30 ml DAILY PRN PO 05/16/17 19:15 (Tylenol Supp) 650 mg Q6H PRN RECTAL 05/17/17 10:15 05/17/17 10:27 Acetaminophen 100 ml @ 400 mls/hr Q6H PRN IV 05/17/17 16:15 (SEROquel) 300 mg DAILY PO 05/18/17 09:00 05/24/17 08:35 (Norvasc) 10 mg DAILY PO 05/18/17 13:30 05/24/17 08:35 (Synthroid) 75 mcg DAILY@0600 PO 05/19/17 06:00 05/24/17 05:48 (Desyrel) 100 mg HS PO 05/18/17 21:00 05/23/17 20:44 (Neurontin) 100 mg TID PRN PO 05/18/17 14:30 (Protonix) 40 mg Q12HR PO 05/18/17 21:00 05/24/17 08:35 (Synthroid) 100 mcg DAILY@0600 PO 05/19/17 06:00 05/24/17 05:48 (Vasotec Inj) 1.25 mg Q6H PRN IV PUSH 05/18/17 18:45 05/21/17 00:29 (Ativan) 0.5 mg Q8H PRN PO 05/18/17 18:45 (Catapres) 0.1 mg TID PO 05/18/17 18:45 Future Hold 05/23/17 08:39 (Keppra) 1,000 mg Q12HR PO 05/19/17 12:00 05/24/17 08:35 ([place] 5-325 Mg) 1 tab Q4H PRN PO 05/24/17 09:45 ([place] 7.5-325 Mg) 1 tab Q4H PRN PO 05/24/17 09:45 05/24/17 12:06 (Morphine Inj) 2 mg Q4H PRN IV PUSH 05/24/17 09:45 Vital Signs / I&O Vital Signs Date Time Temp Pulse Resp B/P (MAP) Pulse Ox O2 Delivery O2 Flow Rate FiO2 05/24/17 12:05 97.7 78 16 103/63 (76) 96 05/24/17 08:26 97.9 70 16 119/77 (91) 96 05/24/17 07:15 Room Air 05/24/17 07:02 67 05/24/17 06:07 75 05/24/17 05:03 92 05/24/17 04:02 69 05/24/17 03:06 65 05/24/17 03:00 97.5 71 16 115/70 (85) 96 05/24/17 02:01 70 05/24/17 01:10 74 05/24/17 00:09 79 05/23/17 23:53 97.5 73 16 119/77 (91) 96 05/23/17 23:02 68 05/23/17 22:08 69 05/23/17 21:01 85 05/23/17 20:41 97.7 78 16 105/63 (77) 95 05/23/17 20:40 Room Air 05/23/17 20:10 87 05/23/17 19:05 78 05/23/17 16:26 98.1 78 16 122/66 (84) 96 05/23/17 16:20 94/60 (71) I/O 05/23/17 05/23/17 05/23/17 05/24/17 05/24/1718 07:00 15:00 23:00 07:00 15:00 23:00 Intake Total 240 ml 1440 ml 240 ml Output Total 500 ml Balance -260 ml 1440 ml 240 ml Intake Oral 240 ml 1440 ml 240 ml Output Urine Total 500 ml # Voids 5 4 # Bowel Movements 0 Physical Exam GENERAL: In NAD SKIN: Warm and dry. HEAD: Normocephalic. EYES: No scleral icterus. No injection or drainage. NECK: Supple, trachea midline. No JVD or lymphadenopathy. CARDIOVASCULAR: Regular rate and rhythm without murmurs, gallops, or rubs. RESPIRATORY: Breath sounds equal bilaterally. No accessory muscle use. GASTROINTESTINAL: Abdomen soft, non-tender, nondistended. MUSCULOSKELETAL: No cyanosis, or edema. Laboratory Laboratory Tests Test 05/24/17 14:00 Assessment and Plan Problem List: (1) Encephalopathy ICD Codes: G93.40 - Encephalopathy, unspecified (2) Seizure ICD Codes: R56.9 - Unspecified convulsions Status: Acute (3) Rhabdomyolysis ICD Codes: M62.82 - Rhabdomyolysis Status: Acute (4) Renal insufficiency ICD Codes: N28.9 - Disorder of kidney and ureter, unspecified (5) UTI (urinary tract infection) ICD Codes: N39.0 - Urinary tract infection, site not specified (6) SBO (small bowel obstruction) ICD Codes: K56.609 - Unspecified intestinal obstruction, unspecified as to partial versus complete obstruction Assessment and Plan No new cardiac issues. No cardiac symptoms. Continue current program. Increase activity, PT. Anticipate discharge to rehab soon. Will schedule outpt f/u after discharge from rehab. Gail Mendoza MD May 24, 2017 14:39
[2017-05-24] MEDS: traZODone HCL 100 MG TAB PO SCH (21:33)
--- NOTE | 2017-05-24 22:03 | HHI.PR ---
Subjective Remarks no acute issue doing well she is concerned about the discharge Objective Vitals Vital Signs Date Time Temp Pulse Resp B/P (MAP) Pulse Ox O2 Delivery O2 Flow Rate FiO2 05/24/17 21:36 98.4 78 16 116/75 (89) 97 05/24/17 16:00 76 16 102/66 (78) 95 05/24/17 12:05 97.7 78 16 103/63 (76) 96 05/24/17 08:26 97.9 70 16 119/77 (91) 96 05/24/17 07:15 Room Air 05/24/17 07:02 67 05/24/17 06:07 75 05/24/17 05:03 92 05/24/17 04:02 69 05/24/17 03:06 65 05/24/17 03:00 97.5 71 16 115/70 (85) 96 05/24/17 02:01 70 05/24/17 01:10 74 05/24/17 00:09 79 05/23/17 23:53 97.5 73 16 119/77 (91) 96 05/23/17 23:02 68 05/23/17 22:08 69 I/O 05/23/17 05/23/17 05/23/17 05/24/17 05/24/17 05/24/17 07:00 15:00 23:00 07:00 15:00 23:00 Intake Total 240 ml 1440 ml 240 ml 1800 ml Output Total 500 ml 200 ml Balance -260 ml 1440 ml 240 ml 1600 ml Intake Oral 240 ml 1440 ml 240 ml 1800 ml Output Urine Total 500 ml 200 ml # Voids 5 4 10 # Bowel Movements 0 Result Diagram: 05/24/17 1400 Objective Remarks GENERAL: This is a well-nourished, well-developed patient, in no apparent distress. CARDIOVASCULAR: Regular rate and rhythm without murmurs, gallops, or rubs. RESPIRATORY: Clear to auscultation. Breath sounds equal bilaterally. No wheezes , rales, or rhonchi. GASTROINTESTINAL: Abdomen soft, non-tender, nondistended. Normal active bowel sounds MUSCULOSKELETAL: Extremities without clubbing, cyanosis, or edema. NEURO: Alert & Oriented x4 to person, place, time, situation. Moves all ext x4 Procedures LP A/P Problem List: (1) Encephalopathy ICD Code: G93.40 - Encephalopathy, unspecified (2) SBO (small bowel obstruction) ICD Code: K56.609 - Unspecified intestinal obstruction, unspecified as to partial versus complete obstruction (3) Seizure ICD Code: R56.9 - Unspecified convulsions Status: Acute (4) Lactic acidosis ICD Code: E87.2 - Acidosis (5) UTI (urinary tract infection) ICD Code: N39.0 - Urinary tract infection, site not specified (6) Renal insufficiency ICD Code: N28.9 - Disorder of kidney and ureter, unspecified (7) Rhabdomyolysis ICD Code: M62.82 - Rhabdomyolysis Status: Acute Assessment and Plan 05/24: still awaiting authorization i will check ck and K today Encephalopathy- has improved. Likely multifactorial-medication related, UTI and acute seizure w/ post-ictal state. - Neuro checks. - Hold sedating home medications for the time being until mental status improves. Resumed trazodone and gabapentin at lower doses. - d/c restraints as tolerated. Seizure Disorder With breakthrough seizure, seizure x2 while in ER, s/p Ativan 6mg. Per review of records, previous EEG 07/13/16 w/ mild encephalopathy suggesting cortical irritability, improved from previous EEG. EEG 03/09/17 w/ no seizure activity. - Seizure precautions, Ativan prn. -s/p LP. - continue Keppra. -HSV PCR negative; will dc Acyclovir. -MRI brain in one week- per neurology. SBO- improved. CT Abd/Pelvis w/ dilated loops of small bowel, likely ileus/obstruction. - continue to advance the diet. - PPI. -evaluated by surgery and signed off. Rhabdomyolysis Likely secondary to seizure activity/dehydration. - improved with IVFs. Hypothyroidism TSH low. - decreased levothyroxine to 175 mcg daily. Electrolyte abnormalities Likely s/t decreased PO intake. - replete and monitor as needed. - telemetry. PPx: SCDs continue PT. Cale Arguello MD May 24, 2017 22:03
[2017-05-25] VITALS (14 sets, daily range): BP systolic 97–131; BP diastolic 68–84; PULSE 68–95; RESP 16–20; TEMP 97.2–98.8; O2SAT 92–97
[2017-05-25] MEDS: ACETAMINOPHEN/HYDROcodone 325 MG/7.5 MG TAB PO PRN ×3 (03:44→15:21)
[2017-05-25] MEDS: LEVOTHYROXINE SODIUM 75 MCG TAB PO SCH (06:33)
[2017-05-25] MEDS: LEVOTHYROXINE SODIUM 100 MCG TAB PO SCH (06:33)
[2017-05-25] MEDS: QUEtiapine FUMARATE 300 MG TAB PO SCH (08:44)
[2017-05-25] MEDS: DOCUSATE SODIUM 50 MG/SENNA 8.6 MG TAB PO SCH ×2 (08:44→21:00)
[2017-05-25] MEDS: SODIUM CHLORIDE 0.9% FLUSH 10 ML FLUSH IV FLUSH SCH ×2 (08:45→21:26)
[2017-05-25] MEDS: levETIRAcetam 500 MG TAB PO SCH ×2 (08:45→21:25)
[2017-05-25] MEDS: PANTOPRAZOLE SOD 40 MG DELAYED RELEASE TAB PO SCH ×2 (08:45→21:25)
[2017-05-25] MEDS ORDERED: SOD PHOSPHATE/SOD BIPHOSPHATE (ADULT) ENEMA 133ML RECTAL PRN (12:45)
--- NOTE | 2017-05-25 17:12 | PD.CARD.PN ---
Subjective Subjective Remarks No CP, SOB or dizziness, c/o constipation Objective Medications Current Medications Medications (Trade) Dose Ordered Sig/Obdulia Route Start Time Stop Time Status Last Admin (Ativan Inj) 1 mg Q5M PRN IV PUSH 05/16/17 19:15 (NS Flush) 2 ml UNSCH PRN IV FLUSH 05/16/17 19:15 05/23/17 23:58 (NS Flush) 2 ml BID IV FLUSH 05/16/17 21:00 05/25/17 08:45 (Zofran Inj) 4 mg Q6H PRN IVP 05/16/17 19:15 05/23/17 23:55 (Anahi-Colace) 1 tab BID PO 05/16/17 21:00 05/25/17 08:44 (Milk Of Magnesia Liq) 30 ml Q12H PRN PO 05/16/17 19:15 05/24/17 23:23 (Senokot) 17.2 mg Q12H PRN PO 05/16/17 19:15 (Dulcolax Supp) 10 mg DAILY PRN RECTAL 05/16/17 19:15 05/25/17 11:57 (Lactulose Liq) 30 ml DAILY PRN PO 05/16/17 19:15 05/25/17 08:48 (Tylenol Supp) 650 mg Q6H PRN RECTAL 05/17/17 10:15 05/17/17 10:27 Acetaminophen 100 ml @ 400 mls/hr Q6H PRN IV 05/17/17 16:15 (SEROquel) 300 mg DAILY PO 05/18/17 09:00 05/25/17 08:44 (Norvasc) 10 mg DAILY PO 05/18/17 13:30 05/25/17 08:45 (Synthroid) 75 mcg DAILY@0600 PO 05/19/17 06:00 05/25/17 06:33 (Desyrel) 100 mg HS PO 05/18/17 21:00 05/24/17 21:33 (Neurontin) 100 mg TID PRN PO 05/18/17 14:30 (Protonix) 40 mg Q12HR PO 05/18/17 21:00 05/25/17 08:45 (Synthroid) 100 mcg DAILY@0600 PO 05/19/17 06:00 05/25/17 06:33 (Vasotec Inj) 1.25 mg Q6H PRN IV PUSH 05/18/17 18:45 05/21/17 00:29 (Ativan) 0.5 mg Q8H PRN PO 05/18/17 18:45 (Catapres) 0.1 mg TID PO 05/18/17 18:45 Future Hold 05/23/17 08:39 (Keppra) 1,000 mg Q12HR PO 05/19/17 12:00 05/25/17 08:45 ([place] 5-325 Mg) 1 tab Q4H PRN PO 05/24/17 09:45 ([place] 7.5-325 Mg) 1 tab Q4H PRN PO 05/24/17 09:45 05/25/17 15:21 (Morphine Inj) 2 mg Q4H PRN IV PUSH 05/24/17 09:45 (Oramorph Sr) 15 mg Q12HR PO 05/25/17 21:00 05/27/17 20:59 (Fleets Enema (Adult)) 133 ml UNSCH X1 PRN RECTAL 05/25/17 12:45 06/01/17 12:44 Vital Signs / I&O Vital Signs Date Time Temp Pulse Resp B/P (MAP) Pulse Ox O2 Delivery O2 Flow Rate FiO2 05/25/17 16:12 98.4 95 20 102/70 (81) 95 05/25/17 12:00 98.8 81 20 97/68 (78) 95 05/25/17 11:54 98.4 82 20 97/68 (78) 93 05/25/17 08:30 69 05/25/17 08:30 98.5 75 20 111/72 (85) 94 05/25/17 06:04 70 05/25/17 05:16 94 05/25/17 04:27 69 05/25/17 03:46 98.7 76 16 131/84 (100) 97 05/25/17 03:05 68 05/25/17 02:13 73 05/25/17 01:03 69 05/25/17 00:02 73 05/24/17 23:33 98.4 79 16 112/65 (81) 93 05/24/17 23:07 78 05/24/17 22:06 86 05/24/17 21:40 Room Air 05/24/17 21:36 98.4 78 16 116/75 (89) 97 05/24/17 21:05 81 05/24/17 20:04 79 05/24/17 19:09 77 I/O 05/24/17 05/24/17 05/24/17 05/25/17 05/25/17 05/25/17 07:00 15:00 23:00 07:00 15:00 23:00 Intake Total 240 ml 1800 ml 480 ml Output Total 200 ml 850 ml Balance 240 ml 1600 ml -370 ml Intake Oral 240 ml 1800 ml 480 ml Output Urine Total 200 ml 850 ml # Voids 4 10 Physical Exam GENERAL: In NAD SKIN: Warm and dry. HEAD: Normocephalic. EYES: No scleral icterus. No injection or drainage. NECK: Supple, trachea midline. No JVD or lymphadenopathy. CARDIOVASCULAR: Regular rate and rhythm without murmurs, gallops, or rubs. RESPIRATORY: Breath sounds equal bilaterally. No accessory muscle use. GASTROINTESTINAL: Abdomen soft, non-tender, nondistended. MUSCULOSKELETAL: No cyanosis, or edema. Assessment and Plan Problem List: (1) Encephalopathy ICD Codes: G93.40 - Encephalopathy, unspecified (2) Seizure ICD Codes: R56.9 - Unspecified convulsions Status: Acute (3) Rhabdomyolysis ICD Codes: M62.82 - Rhabdomyolysis Status: Acute (4) Renal insufficiency ICD Codes: N28.9 - Disorder of kidney and ureter, unspecified (5) UTI (urinary tract infection) ICD Codes: N39.0 - Urinary tract infection, site not specified (6) SBO (small bowel obstruction) ICD Codes: K56.609 - Unspecified intestinal obstruction, unspecified as to partial versus complete obstruction Assessment and Plan Remains stable from cardiac standpoint. No arrhythmias. Continue current program. Increase activity, PT. Anticipate discharge to rehab soon. Will schedule outpt f/u after discharge from rehab. Gail Mendoza MD May 25, 2017 17:12
[2017-05-25] MEDS: MORPHINE SULFATE 15 MG CONTROLLED RELEASE TAB PO SCH (21:24)
[2017-05-25] MEDS: traZODone HCL 100 MG TAB PO SCH (21:25)
--- NOTE | 2017-05-25 21:59 | HHI.PR ---
Subjective Remarks Patient blood pressure is low 97/68 today, she reported feeling dizzy, she is requesting to get morphine SR since her pump is not working I explained to her that this causing her blood pressure to go low. Patient still waiting on discharge to rehab when insurance authorization obtained Objective Vitals Vital Signs Date Time Temp Pulse Resp B/P (MAP) Pulse Ox O2 Delivery O2 Flow Rate FiO2 05/25/17 20:00 97.2 76 18 106/70 (82) 92 05/25/17 16:12 98.4 95 20 102/70 (81) 95 05/25/17 16:00 80 05/25/17 12:00 98.8 81 20 97/68 (78) 95 05/25/17 11:54 98.4 82 20 97/68 (78) 93 05/25/17 08:30 69 05/25/17 08:30 98.5 75 20 111/72 (85) 94 05/25/17 06:04 70 05/25/17 05:16 94 05/25/17 04:27 69 05/25/17 03:46 98.7 76 16 131/84 (100) 97 05/25/17 03:05 68 05/25/17 02:13 73 05/25/17 01:03 69 05/25/17 00:02 73 05/24/17 23:33 98.4 79 16 112/65 (81) 93 05/24/17 23:07 78 05/24/17 22:06 86 I/O 05/24/17 05/24/17 05/24/17 05/25/17 05/25/17 05/25/17 07:00 15:00 23:00 07:00 15:00 23:00 Intake Total 240 ml 1800 ml 480 ml Output Total 200 ml 850 ml 452 ml Balance 240 ml 1600 ml -370 ml -452 ml Intake Oral 240 ml 1800 ml 480 ml Output Urine Total 200 ml 850 ml 450 ml Stool Total 2 ml # Voids 4 10 Result Diagram: 05/24/17 1400 Objective Remarks GENERAL: This is a well-nourished, well-developed patient, in no apparent distress. CARDIOVASCULAR: Regular rate and rhythm without murmurs, gallops, or rubs. RESPIRATORY: Clear to auscultation. Breath sounds equal bilaterally. No wheezes , rales, or rhonchi. GASTROINTESTINAL: Abdomen soft, non-tender, nondistended. Normal active bowel sounds MUSCULOSKELETAL: Extremities without clubbing, cyanosis, or edema. NEURO: Alert & Oriented x4 to person, place, time, situation. Moves all ext x4 Procedures LP A/P Problem List: (1) Encephalopathy ICD Code: G93.40 - Encephalopathy, unspecified (2) SBO (small bowel obstruction) ICD Code: K56.609 - Unspecified intestinal obstruction, unspecified as to partial versus complete obstruction (3) Seizure ICD Code: R56.9 - Unspecified convulsions Status: Acute (4) Lactic acidosis ICD Code: E87.2 - Acidosis (5) UTI (urinary tract infection) ICD Code: N39.0 - Urinary tract infection, site not specified (6) Renal insufficiency ICD Code: N28.9 - Disorder of kidney and ureter, unspecified (7) Rhabdomyolysis ICD Code: M62.82 - Rhabdomyolysis Status: Acute Assessment and Plan 05/25: CK back to normal level, blood pressure on the lower side 97/68 used to morphine, patient used to be on morphine pump and she is requesting morphine SR as a replacement this need to be addressed as an outpatient with her pain management physician A/P: Encephalopathy- has improved. Likely multifactorial-medication related, UTI and acute seizure w/ post-ictal state. - Neuro checks. - Hold sedating home medications for the time being until mental status improves. Resumed trazodone and gabapentin at lower doses. - d/c restraints as tolerated. Seizure Disorder With breakthrough seizure, seizure x2 while in ER, s/p Ativan 6mg. Per review of records, previous EEG 07/13/16 w/ mild encephalopathy suggesting cortical irritability, improved from previous EEG. EEG 03/09/17 w/ no seizure activity. - Seizure precautions, Ativan prn. -s/p LP. - continue Keppra. -HSV PCR negative; will dc Acyclovir. -MRI brain in one week- per neurology. SBO- improved. CT Abd/Pelvis w/ dilated loops of small bowel, likely ileus/obstruction. - continue to advance the diet. - PPI. -evaluated by surgery and signed off. Rhabdomyolysis Likely secondary to seizure activity/dehydration. - improved with IVFs. Hypothyroidism TSH low. - decreased levothyroxine to 175 mcg daily. Electrolyte abnormalities Likely s/t decreased PO intake. - replete and monitor as needed. - telemetry. PPx: SCDs continue PT. Discharge Planning To rehab, awaiting authorization Cale Arguello MD May 25, 2017 21:59
[2017-05-26] VITALS: BP 104/65; PULSE 82; RESP 18; TEMP 97; O2SAT 92
[2017-05-26 04:00] VITALS: BP 126/74; PULSE 75; RESP 18; TEMP 97.1; O2SAT 93
[2017-05-26] MEDS: LEVOTHYROXINE SODIUM 100 MCG TAB PO SCH (06:09)
[2017-05-26] MEDS: LEVOTHYROXINE SODIUM 75 MCG TAB PO SCH (06:09)
[2017-05-26 07:55] VITALS: PULSE 87
[2017-05-26 08:00] VITALS: BP 107/62; PULSE 78; RESP 16; TEMP 97.8; O2SAT 95
[2017-05-26] MEDS: PANTOPRAZOLE SOD 40 MG DELAYED RELEASE TAB PO SCH (09:42)
[2017-05-26] MEDS: QUEtiapine FUMARATE 300 MG TAB PO SCH (09:42)
[2017-05-26] MEDS: levETIRAcetam 500 MG TAB PO SCH (09:42)
[2017-05-26] MEDS: MORPHINE SULFATE 15 MG CONTROLLED RELEASE TAB PO SCH (09:43)
[2017-05-26] MEDS: DOCUSATE SODIUM 50 MG/SENNA 8.6 MG TAB PO SCH (09:43)
--- NOTE | 2017-05-26 11:26 | PD.CARD.PN ---
Subjective Subjective Remarks No CP, SOB or dizziness, no constipation, feels much better Objective Medications Current Medications Medications (Trade) Dose Ordered Sig/Obdulia Route Start Time Stop Time Status Last Admin (Ativan Inj) 1 mg Q5M PRN IV PUSH 05/16/17 19:15 (NS Flush) 2 ml UNSCH PRN IV FLUSH 05/16/17 19:15 05/23/17 23:58 (NS Flush) 2 ml BID IV FLUSH 05/16/17 21:00 05/25/17 21:26 (Zofran Inj) 4 mg Q6H PRN IVP 05/16/17 19:15 05/23/17 23:55 (Anahi-Colace) 1 tab BID PO 05/16/17 21:00 05/26/17 09:43 (Milk Of Magnesia Liq) 30 ml Q12H PRN PO 05/16/17 19:15 05/24/17 23:23 (Senokot) 17.2 mg Q12H PRN PO 05/16/17 19:15 (Dulcolax Supp) 10 mg DAILY PRN RECTAL 05/16/17 19:15 05/25/17 11:57 (Lactulose Liq) 30 ml DAILY PRN PO 05/16/17 19:15 05/25/17 08:48 (Tylenol Supp) 650 mg Q6H PRN RECTAL 05/17/17 10:15 05/17/17 10:27 Acetaminophen 100 ml @ 400 mls/hr Q6H PRN IV 05/17/17 16:15 (SEROquel) 300 mg DAILY PO 05/18/17 09:00 05/26/17 09:42 (Norvasc) 10 mg DAILY PO 05/18/17 13:30 05/26/17 09:43 (Synthroid) 75 mcg DAILY@0600 PO 05/19/17 06:00 05/26/17 06:09 (Desyrel) 100 mg HS PO 05/18/17 21:00 05/25/17 21:25 (Neurontin) 100 mg TID PRN PO 05/18/17 14:30 (Protonix) 40 mg Q12HR PO 05/18/17 21:00 05/26/17 09:42 (Synthroid) 100 mcg DAILY@0600 PO 05/19/17 06:00 05/26/17 06:09 (Vasotec Inj) 1.25 mg Q6H PRN IV PUSH 05/18/17 18:45 05/21/17 00:29 (Ativan) 0.5 mg Q8H PRN PO 05/18/17 18:45 (Catapres) 0.1 mg TID PO 05/18/17 18:45 Future Hold 05/23/17 08:39 (Keppra) 1,000 mg Q12HR PO 05/19/17 12:00 05/26/17 09:42 ([place] 5-325 Mg) 1 tab Q4H PRN PO 05/24/17 09:45 ([place] 7.5-325 Mg) 1 tab Q4H PRN PO 05/24/17 09:45 05/25/17 15:21 (Morphine Inj) 2 mg Q4H PRN IV PUSH 05/24/17 09:45 (Oramorph Sr) 15 mg Q12HR PO 05/25/17 21:00 05/27/17 20:59 05/26/17 09:43 (Fleets Enema (Adult)) 133 ml UNSCH X1 PRN RECTAL 05/25/17 12:45 06/01/17 12:44 Vital Signs / I&O Vital Signs Date Time Temp Pulse Resp B/P (MAP) Pulse Ox O2 Delivery O2 Flow Rate FiO2 05/26/17 08:00 97.8 78 16 107/62 (77) 95 05/26/17 04:00 97.1 75 18 126/74 (91) 93 05/26/17 00:00 97.0 82 18 104/65 (78) 92 05/25/17 20:00 97.2 76 18 106/70 (82) 92 05/25/17 16:12 98.4 95 20 102/70 (81) 95 05/25/17 16:00 80 05/25/17 12:00 98.8 81 20 97/68 (78) 95 05/25/17 11:54 98.4 82 20 97/68 (78) 93 I/O 05/25/17 05/25/17 05/25/17 05/26/17 05/26/17 05/26/17 07:00 15:00 23:00 07:00 15:00 23:00 Intake Total 480 ml Output Total 850 ml 452 ml 500 ml Balance -370 ml -452 ml -500 ml Intake Oral 480 ml Output Urine Total 850 ml 450 ml 500 ml Stool Total 2 ml # Bowel Movements 2 Physical Exam GENERAL: In NAD SKIN: Warm and dry. HEAD: Normocephalic. EYES: No scleral icterus. No injection or drainage. NECK: Supple, trachea midline. No JVD or lymphadenopathy. CARDIOVASCULAR: Regular rate and rhythm without murmurs, gallops, or rubs. RESPIRATORY: Breath sounds equal bilaterally. No accessory muscle use. GASTROINTESTINAL: Abdomen soft, non-tender, nondistended. MUSCULOSKELETAL: No cyanosis, or edema. Assessment and Plan Problem List: (1) Encephalopathy ICD Codes: G93.40 - Encephalopathy, unspecified (2) Seizure ICD Codes: R56.9 - Unspecified convulsions Status: Acute (3) Rhabdomyolysis ICD Codes: M62.82 - Rhabdomyolysis Status: Acute (4) Renal insufficiency ICD Codes: N28.9 - Disorder of kidney and ureter, unspecified (5) UTI (urinary tract infection) ICD Codes: N39.0 - Urinary tract infection, site not specified (6) SBO (small bowel obstruction) ICD Codes: K56.609 - Unspecified intestinal obstruction, unspecified as to partial versus complete obstruction Assessment and Plan No new cardiac issues, await placement. No arrhythmias. No angina or CHF. Increase activity, PT. Anticipate discharge to rehab. Will schedule card outpt f /u in our office after discharge from rehab. Gail Mendoza MD May 26, 2017 11:25
[2017-05-26 12:00] VITALS: BP 99/55; PULSE 84; RESP 16; TEMP 97.5; O2SAT 96
[2017-05-26] MEDS ORDERED: HYDR-3516 PO (14:39)
[2017-05-26] MEDS ORDERED: MORP1TAB24 PO (14:39)
[2017-05-26] MEDS ORDERED: HYDR-3580 PO (14:39)
--- NOTE | 2017-05-26 14:49 | HHI.DCPOC ---
Discharge Care Plan Diagnosis: (1) Hypothyroidism (2) Hyperlipidemia (3) Hypertension (4) Seizure (5) Encephalopathy (6) Elevated troponin (7) Rhabdomyolysis (8) Renal insufficiency (9) SBO (small bowel obstruction) Goals to Promote Your Health * To prevent worsening of your condition and complications * To maintain your health at the optimal level Directions to Meet Your Goals Take your medications as prescribed Follow your dietary instruction Follow activity as directed Keep your appointments as scheduled Take your immunizations and boosters as scheduled If your symptoms worsen call your PCP, if no PCP go to Urgent Care Center or Emergency Room Smoking is Dangerous to Your Health. Avoid second hand smoke Call the 24-hour hour crisis hotline for domestic abuse at Fermín De Paz MD May 26, 2017 14:49
--- NOTE | 2017-05-26 14:52 | HHI.DS ---
Discharge Summary Admission Date May 16, 2017 at 19:13 Discharge Date: May 26, 2017 Admitting Diagnosis AMS, acute encephalopathy, SBO vs ileus (1) Encephalopathy ICD Code: G93.40 - Encephalopathy, unspecified (2) SBO (small bowel obstruction) ICD Code: K56.609 - Unspecified intestinal obstruction, unspecified as to partial versus complete obstruction (3) Seizure ICD Code: R56.9 - Unspecified convulsions Status: Acute (4) Lactic acidosis ICD Code: E87.2 - Acidosis (5) UTI (urinary tract infection) ICD Code: N39.0 - Urinary tract infection, site not specified (6) Renal insufficiency ICD Code: N28.9 - Disorder of kidney and ureter, unspecified (7) Rhabdomyolysis ICD Code: M62.82 - Rhabdomyolysis Status: Acute Procedures LP Brief History - From Admission This is a 62-year-old female with a PMH of Anxiety, Depression, HTN, CAD, Hyperlipidemia, Thyroid CA s/p Thyroidectomy, Seizure Disorder, Migraine, Chronic Back Pain s/p Morphine Pump Implantation and GERD who was brought to the ER secondary to AMS. Patient very poor historian, unable to provide history. Per report, pt's Mother noted pt to be more confused, which she believes is secondary to her pain medication. While in ER, pt w/ seizure x2 requiring several doses of Ativan. Per review of records, pt w/ h/o seizure disorder, unclear what medications she takes. On arrival, BP 208/100, HR 88, O2 sat 97% on RA, Afebrile. W WBC Senna-Gen unremarkable. Creatinine 1.08, previously 1.12 on 03/12/17. Lactic Acid 2.4. INR 1.1. UA positive for UTI. Urine Drug Screen positive for Opiates and Barbiturates (on Fioricet/Morphine per review of home meds). CXR with no acute findings. CT Head negative. On exam, pt noted to have abdominal pain. CT Abd/Pelvis w/ dilated loops of small bowel likely ileus/partial obstruction. CBC/BMP: 05/24/17 1400 Significant Findings Laboratory Tests Test 05/24/17 14:00 Potassium Level 3.2 MEQ/L (3.5-5.1) Imaging Last Impressions Abdomen X-Ray 05/18/17 0600 Signed Impressions: Service Date/Time: Thursday, May 18, 2017 05:13 - CONCLUSION: Nonobstructive bowel gas pattern. Jimmy David MD Lumbar Puncture Fluoroscopy 05/18/17 0000 Signed Impressions: Service Date/Time: Thursday, May 18, 2017 09:55 - CONCLUSION: Uncomplicated fluoroscopically guided lumbar puncture. Zeke Mark MD Brain MRI 05/18/17 0000 Signed Impressions: Service Date/Time: Thursday, May 18, 2017 11:02 - CONCLUSION: 1. Diffuse signal change throughout both cerebral hemispheres and cerebellar hemispheres consistent with a postictal state. 2. Underlying chronic small vessel ischemic change. Arnaud Guzman Jr., MD Head CT 05/16/17 1216 Signed Impressions: Service Date/Time: Tuesday, May 16, 2017 13:50 - CONCLUSION: Intracranially negative. Sinus disease as described above with an air-fluid level right maxillary sinus suggesting acute sinusitis Major Alfred MD Chest X-Ray 05/16/17 1216 Signed Impressions: Service Date/Time: Tuesday, May 16, 2017 14:05 - CONCLUSION: No acute disease. No significant change has occurred. Major Alfred MD Abdomen/Pelvis CT 05/16/17 0000 Signed Impressions: Service Date/Time: Tuesday, May 16, 2017 17:46 - CONCLUSION: 1. Multiple dilated loops of small bowel down to the right lower quadrant without significant air-fluid levels. No abdominal mass seen. Different considerations include ileus and partial obstruction. 2. Stable appearance to multiple sigmoid diverticula without radiographic evidence of diverticulitis. 3. 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 Arnaud Alan MD PE at Discharge GENERAL: This is a well-nourished, well-developed patient, in no apparent distress. CARDIOVASCULAR: Regular rate and rhythm without murmurs, gallops, or rubs. RESPIRATORY: Clear to auscultation. Breath sounds equal bilaterally. No wheezes , rales, or rhonchi. GASTROINTESTINAL: Abdomen soft, non-tender, nondistended. Normal active bowel sounds MUSCULOSKELETAL: Extremities without clubbing, cyanosis, or edema. NEURO: Alert & Oriented x4 to person, place, time, situation. Moves all ext x4 Pt Condition on Discharge: Fair Discharge Disposition: Discharge to SNF Discharge Time: > 30 minutes Discharge Instructions DIET: Follow Instructions for: Heart Healthy Diet Activities you can perform: See Additionl Instruction Other Activity Instructions: per PT Follow up Referrals: Cardiology - 3 Weeks with Gail Mendoza MD Neurology - 3 Weeks with Richie Aceves MD PhD New Medications: Levothyroxine (Synthroid) 175 Mcg Tab 175 MCG PO DAILY for Thyroid, #30 TAB 0 Refills Gabapentin (Gabapentin) 100 Mg Cap 100 MG PO TID PRN for neuropathy, #90 CAP Hydrocodone/Acetaminophen (Hydrocodone-Acetamin 5-325 mg) 5 Mg-325 Mg Tablet 1 TAB PO Q4H PRN for PAIN SCALE 3 TO 5, #10 TAB Hydrocodone/Acetaminophen (Hydrocodone-Acetamin 7.5-325) 7.5 Mg-325 Mg Tablet 1 TAB PO Q4H PRN for PAIN SCALE 6 TO 10, #10 TAB Levetiracetam (Keppra) 500 Mg Tab 1000 MG PO Q12HR for ., #60 TAB Morphine ER (Morphine ER) 15 Mg Tab 15 MG PO Q12HR for Pain Management, #20 TAB Continued Medications: Aspirin DR (Aspir-81) 81 Mg Tabdr 1 TAB PO HS for Blood Clot Prevention Cetirizine (Cetirizine) 10 Mg Tab 10 MG PO Q12HR for Allergies for 30 Days, TAB Clonidine (Catapres) 0.1 Mg Tab 0.1 MG PO TID for Blood Pressure Management MDD 0.9 quantity for 30 Days, #90 TAB Lactobacillus Acidophilus (Probiotic) 10 Billion Cell Cap 1 CAP PO TIDAC for Nutritional Supplement, #90 CAP 0 Refills Levothyroxine (Levothyroxine) 200 Mcg Tab 200 MCG PO DAILY for Thyroid, #30 TAB 0 Refills Metoclopramide (Reglan) 10 Mg Tab 10 MG PO QID for 10 Days, #30 TAB 0 Refills Ondansetron (Zofran) 4 Mg Tab 4 MG PO Q12HR PRN for NAUSEA OR VOMITING for 30 Days, TAB 0 Refills Pantoprazole (Pantoprazole) 40 Mg Tab 40 MG PO Q12HR for Reflux for 30 Days, TAB Potassium Chloride ER (Potassium Chloride ER) 10 Meq Cap 10 MEQ PO BID for Electrolyte Replacement for 30 Days, #60 CAP Quetiapine (Seroquel) 300 Mg Tab 300 MG PO DAILY for Depression Control, #30 TAB 0 Refills Sucralfate Liq (Sucralfate Liq) 1 Gram/10 Ml Tiffanie 1 GM PO TID for Duodenal ulcer, #900 ML 0 Refills on empty stomach Trazodone (Trazodone) 100 Mg Tablet 200 MG PO HS for Control Depression, #30 TAB 0 Refills Discontinued Medications: Amlodipine (Norvasc) 10 Mg Tab 10 MG PO DAILY for Blood Pressure Management for 30 Days, #30 TAB Fermín De Paz MD May 26, 2017 14:52
[2017-05-26 16:00] VITALS: BP 104/70; PULSE 75; RESP 17; TEMP 95.5; O2SAT 95
[2017-05-26] MEDS: ACETAMINOPHEN/HYDROcodone 325 MG/7.5 MG TAB PO PRN (17:52)
== END 2017-05-26 17:44 | DRG 388 ==
LOC: NEPC 11:56 → NEDA 19:13 → NEPGCP 20:58 → N03B 05-17 06:04 → HCIS 05-18 14:05 → HCIN 05-20 20:17 → N07A 05-25 19:05
PROVIDERS: ADMIT Hospitalist; ATTEND Hospitalist
PROC: 009U3ZX Drainage of Spinal Canal, Percutaneous Approach, Diagnostic (ICD-10-PCS; principal; 2017-05-18)
DX: K56.609 Unspecified intestinal obstruction, unspecified as to partial versus complete obstruction (principal); G93.40 Encephalopathy, unspecified; E87.2 Acidosis; M62.82 Rhabdomyolysis; Z78.1 Physical restraint status; G40.409 Other generalized epilepsy and epileptic syndromes, not intractable, without status epilepticus; I25.10 Atherosclerotic heart disease of native coronary artery without angina pectoris; E78.5 Hyperlipidemia, unspecified; K21.9 Gastro-esophageal reflux disease without esophagitis; G89.29 Other chronic pain; M54.5 Low back pain; E86.0 Dehydration; I12.9 Hypertensive chronic kidney disease with stage 1 through stage 4 chronic kidney disease, or unspecified chronic kidney disease; N18.9 Chronic kidney disease, unspecified; M19.90 Unspecified osteoarthritis, unspecified site; G47.30 Sleep apnea, unspecified; R32 Unspecified urinary incontinence; R00.0 Tachycardia, unspecified; E87.6 Hypokalemia; E89.0 Postprocedural hypothyroidism; R74.8 Abnormal levels of other serum enzymes; F32.9 Major depressive disorder, single episode, unspecified; Z79.899 Other long term (current) drug therapy; Z85.850 Personal history of malignant neoplasm of thyroid
CPT/HCPCS: 62270; 70450; 70553; 71045; 74018; 74177; 76937; 77003; 80048; 80053; 80184; 80307; 81001; 82140; 82550; 82552; 82945; 83036; 83605; 83735; 84100; 84132; 84157; 84439; 84443; 84484; 85025; 85027; 85610; 85730; 86403; 86592; 86651; 86652; 86653; 86654; 87015; 87040; 87070; 87086; 87102; 87116; 87205; 87206; 87529; 87641; 89051; 93005; 95819; 96361; 96374; 96375; A9579; J0131; J0133; J0360; J0696; J1953; J2060; J2270; J2405; J2765; J3480; J7030; Q9967

== ENCOUNTER → 2017-06-14 | Outpatient (CLI) | payer MEDICARE ==
[~2017-06-14] MED LIST changes: +ACET-822 PO; -AMLO10 PO; +GABA100C4 PO; +HYDR-3516 PO; +HYDR-3580 PO; +LEVE500 PO; +MORP1TAB24 PO; +SYNT175T PO
[2017-06-14 13:53] LABS: BLOOD, URINE NEG (NEG); GLUCOSE,URINE NEG (NEG); KETONE, URINE TRACE mg/dL (NEG); NITRITE,URINE NEG (NEG); URINE COLOR YELLOW (YELLW/STRAW); URINE LEUKOCYTE ESTERASE TRACE (NEG)
[2017-06-14 14:00] LABS: BILIRUBIN, URINE NEG (NEG)
[2017-06-14 14:02] LABS: RBC, URINE 0-2 /hpf (0-3); SQUAMOUS EPITHELIAL CELL URINE 0-5 /hpf (0-5); WBC, URINE 0-2 /hpf (0-5)
== END ==
LOC: PHPRE 12:41
PROVIDERS: ATTEND Pain Medicine Interventional Pain Medicine
DX: Z01.812 Encounter for preprocedural laboratory examination (principal); Z45.49 Encounter for adjustment and management of other implanted nervous system device
CPT/HCPCS: 81001

== ENCOUNTER 2017-08-09 01:03 | Observation (INO) | payer MEDICARE, MEDICAID ==
[~2017-08-09] VITALS: Ht 167.6 cm; Wt 98.0 kg
[2017-08-09] VITALS (8 sets, daily range): BP systolic 153–176; BP diastolic 67–85; PULSE 70–106; RESP 15–20; TEMP 97.8–98.8; O2SAT 94–98
[~2017-08-09 01:03] MED LIST changes: -Acet-Butal-Caff 325-50-40 Mg PO; -GABA300C5 PO; -HYDR-3580 PO; -KLOR25PO2 PO; -LEVO200T4 PO
--- NOTE | 2017-08-09 01:10 | PD ---
HPI Chief Complaint: Respiratory Symptoms Time Seen by Provider: 01:05 Travel History International Travel<30 days: No Contact w/Intl Traveler<30days: No Traveled to known affect area: No History of Present Illness HPI The patient is a 62 year old female who presents to the [facility] emergency department with a history of pain in the center of the chest that began between 6 to 6:30PM. It is a sharp pain associated with a sensation of someone sitting on her chest. The pain radiates under her left breast. She had associated shortness of breath and the pain was worse with taking a deep breath. It has been constant since the onset. She has had increased congestion over the last few nights. She denies having any significant cough. She has had increased lower ext edema for the last few days. She is unsure of her cardiac history. She reports that she has some memory problems since having a stroke in the past. She reports that she has been seen by desk sergeant previously. She cannot recall the name of her desk sergeant. The patient reports that ambulance services provided for low-dose aspirin and 3 sublingual nitroglycerin. She reports that the nitroglycerin did seem to help. On review of systems otherwise, the patient denies having any known recent fevers, neck pain, abdominal pain, vomiting, diarrhea, urinary symptoms, or neurologic symptoms. [facility] Past Medical History Narrative Medical The patient's past medical history is significant for anxiety, depression, hypertension, coronary artery disease, hyperlipidemia, thyroid cancer status post thyroidectomy, history of seizure disorder, migraine headaches, prior history of stroke, history of chronic back pain with an implanted pain pump, and acid reflux. Hx Anticoagulant Therapy: Yes Arthritis: Yes (HANDS) Asthma: No Atrial Fibrillation: Yes Autoimmune Disease: No Blood Disorders: No Anxiety: Yes Depression: Yes Heart Rhythm Problems: No Cancer: Yes (thyroid cancer) Cardiac Catheterization: Yes (20 % CLOGGED ) Cardiovascular Problems: Yes High Cholesterol: Yes Chemotherapy: No Chest Pain: No Congestive Heart Failure: No COPD: No Cerebrovascular Accident: No Coronary Artery Disease: Yes Diabetes: No Diminished Hearing: No Endocrine: Yes Gastrointestinal Disorders: Yes (REFLUX; HX ULCERS) GERD: No Glaucoma: No Genitourinary: No Headaches: No Hepatitis: No Hiatal Hernia: No Hypertension: Yes Immune Disorder: No Implanted Vascular Access Dvce: Yes (MORPHINE PUMP) Kidney Stones: No Musculoskeletal: Yes (CHRONIC BACK PAIN;ARTHRITIS) Neurologic: Yes (MIGRAINES) Psychiatric: No Reproductive: No Respiratory: Yes (copd) Migraines: Yes Myocardial Infarction: No Radiation Therapy: No Renal Failure: No Seizures: No Sickle Cell Disease: No Sleep Apnea: No Thyroid Disease: Yes (thyroidectomy, from thyroid cancer) Ulcer: Yes PNEUMOCCOCAL Vaccine (Year): 2 Menopausal: Yes Tubal Ligation: Yes Past Surgical History Narrative Surgical The patient's past surgical history is significant for pain pump implants, cholecystectomy, hysterectomy, tonsillectomy, thyroidectomy. Abdominal Surgery: Yes ("STOMACH/ESOPHAGUS" sx; NAFISA) AICD: No Appendectomy: No Arteriovenous Shunt: No Body Medical Devices: morphine pain pump implanted in lower back Cardiac Surgery: No Cholecystectomy: Yes Coronary Artery Bypass Graft: No Ear Surgery: No Endocrine Surgery: No Eye Surgery: No Genitourinary Surgery: No Gynecologic Surgery: No Hysterectomy: Yes Insulin Pump: No Joint Replacement: No Neurologic Surgery: No Oral Surgery: No Pacemaker: No Thoracic Surgery: No Tonsillectomy: Yes Other Surgery: Yes (THYROIDECTOMY) Social History Alcohol Use: No Tobacco Use: No Substance Use: No Allergies-Medications (Allergen,Severity, Reaction): Coded Allergies: cyclobenzaprine (Verified Allergy, Severe, hives, 08/09/17) paroxetine (Verified Allergy, Severe, rash, 08/09/17) sulfamethoxazole (Verified Allergy, Severe, rash, 08/09/17) trimethoprim (Verified Allergy, Intermediate, rash, 08/09/17) codeine (Verified Adverse Reaction, Severe, NAUSEA, 08/09/17) Reported Meds & Prescriptions Reported Meds & Active Scripts Active Keflex (Cephalexin) 500 Mg Capsule 500 Mg PO Q8H 7 Days Hydrocodone-Acetamin 5-325 mg (Hydrocodone/Acetaminophen) 5 Mg-325 Mg Tablet 1 Tab PO Q4H PRN Morphine ER (Morphine Sulfate) 15 Mg Tab 15 Mg PO Q12HR Synthroid (Levothyroxine Sodium) 175 Mcg Tab 175 Mcg PO DAILY Gabapentin 100 Mg Cap 100 Mg PO TID PRN Sucralfate Liq (Sucralfate) 1 Gram/10 Ml Tiffanie 1 Gm PO TID on empty stomach Reglan (Metoclopramide HCl) 10 Mg Tab 10 Mg PO QID 10 Days Cetirizine (Cetirizine HCl) 10 Mg Tab 10 Mg PO Q12HR 30 Days Potassium Chloride ER (Potassium Chloride) 10 Meq Cap 10 Meq PO BID 30 Days Pantoprazole (Pantoprazole Sodium) 40 Mg Tab 40 Mg PO Q12HR 30 Days Zofran (Ondansetron HCl) 4 Mg Tab 4 Mg PO Q12HR PRN 30 Days Catapres (Clonidine) 0.1 Mg Tab 0.1 Mg PO TID MDD 0.9 quantity 30 Days Reported Loperamide (Loperamide HCl) 2 Mg Cap 2 Mg PO DIRECTED PRN One capsule after each loose stool. Not to exceed 8 capsules per day. Seroquel (Quetiapine Fumarate) 300 Mg Tab 300 Mg PO TID Tylenol Extra Strength (Acetaminophen) 500 Mg Tablet 1 Tab PO Q8HR PRN Keppra (Levetiracetam) 500 Mg Tab 500 Mg PO BID Trazodone (Trazodone HCl) 100 Mg Tablet 200 Mg PO HS Seroquel (Quetiapine Fumarate) 300 Mg Tab 300 Mg PO DAILY Review of Systems Except as stated in HPI: all other systems reviewed are Neg General / Constitutional: No: Fever Eyes: No: Visual changes HENT: Positive: Congestion, No: Headaches Cardiovascular: Positive: Chest Pain or Discomfort, Dyspnea on exertion, Edema , No: Diaphoresis Respiratory: Positive: Shortness of Breath, No: Cough Gastrointestinal: No: Nausea, Vomiting, Diarrhea, Abdominal Pain Genitourinary: No: Dysuria Musculoskeletal: No: Pain Skin: No Rash Neurologic: No: Weakness Psychiatric: No: Depression Endocrine: No: Polydipsia Hematologic/Lymphatic: No: Easy Bruising Physical Exam Narrative General: The patient is a well-developed well-nourished female in no acute distress. Head and Neck exam: Head is normocephalic atraumatic. Eyes: EOMI, pupils are equal round and reactive to light. Nose: Midline septum with pink mucous membranes Mouth: Dentition unremarkable. Moist mucus membranes. Posterior oropharynx is not erythematous. No tonsillar hypertrophy. Uvula midline. Airway patent. Neck: No palpable lymphadenopathy. No nuchal rigidity. No thyromegaly. Cardiovascular: Regular rate and rhythm without murmurs, gallops, or rubs. No pulse deficit to the extremities on simultaneous auscultation and palpation of her radial artery. Lungs: Clear to auscultation bilaterally. No wheezes, rhonchi, or rales. Abdomen: Soft, without tenderness to palpation in all 4 quadrants of the abdomen. No guarding, rebound, or rigidity. Normal bowel sounds are audible. No tenderness on palpation of McBurney's point. Negative Allen sign. Extremities: No clubbing or cyanosis. The patient has 1+ pitting edema bilateral lower extremities. 2+ pulses in all 4 extremities. No calf tenderness on palpation. Back: No spinous process tenderness to palpation. No costovertebral angle tenderness to palpation. Neurologic Exam: Grossly nonfocal. Skin Exam: No rash noted. Intact skin that is warm and dry. Data Data Last Documented VS Vital Signs Date Time Temp Pulse Resp B/P (MAP) Pulse Ox O2 Delivery O2 Flow Rate FiO2 08/09/17 02:31 81 18 169/84 (112) 95 Nasal Cannula 3.00 08/09/17 01:07 98.8 Orders Orders Complete Blood Count With Diff (08/09/17 01:05) Comprehensive Metabolic Panel (08/09/17 01:05) B-Type Natriuretic Peptide (08/09/17 01:05) Act Partial Throm Time (Ptt) (08/09/17 01:05) Prothrombin Time / Inr (Pt) (08/09/17 01:05) Magnesium (Mg) (08/09/17 01:05) Ckmb (Isoenzyme) Profile (08/09/17 01:05) Troponin I (08/09/17 01:05) Iv Access Insert/Monitor (08/09/17 01:05) Electrocardiogram (08/09/17 01:05) Ecg Monitoring (08/09/17 01:05) Oximetry (08/09/17 01:05) Oxygen Administration (08/09/17 01:05) Chest, Single Ap (08/09/17 01:05) Sodium Chloride 0.9% Flush (Ns Flush) (08/09/17 01:15) Albuterol Neb (Albuterol Neb) (08/09/17 01:15) Nitroglycerin 2% Oint (Nitroglycerin 2% (08/09/17 01:45) CKMB (08/09/17 01:15) CKMB% (08/09/17 01:15) Urinalysis - C+S If Indicated (08/09/17 02:41) Urine Culture (08/09/17 02:43) Ct Pulmonary Angiogram (08/09/17 03:20) Ceftriaxone Inj (Rocephin Inj) (08/09/17 03:30) Admit Order (Ed Use Only) (08/09/17 03:49) Labs Laboratory Tests Test 08/09/17 01:15 08/09/17 02:43 White Blood Count 5.0 TH/MM3 Red Blood Count 3.60 MIL/MM3 Hemoglobin 10.2 GM/DL Hematocrit 30.1 % Mean Corpuscular Volume 83.4 FL Mean Corpuscular Hemoglobin 28.2 PG Mean Corpuscular Hemoglobin Concent 33.8 % Red Cell Distribution Width 16.1 % Platelet Count 191 TH/MM3 Mean Platelet Volume 7.9 FL Neutrophils (%) (Auto) 47.5 % Lymphocytes (%) (Auto) 36.8 % Monocytes (%) (Auto) 13.2 % Eosinophils (%) (Auto) 2.0 % Basophils (%) (Auto) 0.5 % Neutrophils # (Auto) 2.4 TH/MM3 Lymphocytes # (Auto) 1.8 TH/MM3 Monocytes # (Auto) 0.7 TH/MM3 Eosinophils # (Auto) 0.1 TH/MM3 Basophils # (Auto) 0.0 TH/MM3 CBC Comment DIFF FINAL Differential Comment Prothrombin Time 9.8 SEC Prothromb Time International Ratio 1.0 RATIO Activated Partial Thromboplast Time 24.3 SEC Blood Urea Nitrogen 17 MG/DL Creatinine 1.29 MG/DL Random Glucose 142 MG/DL Total Protein 7.5 GM/DL Albumin 3.1 GM/DL Calcium Level 8.2 MG/DL Magnesium Level 2.1 MG/DL Alkaline Phosphatase 94 U/L Aspartate Amino Transf (AST/SGOT) 30 U/L Alanine Aminotransferase (ALT/SGPT) 21 U/L Total Bilirubin 0.2 MG/DL Sodium Level 144 MEQ/L Potassium Level 4.2 MEQ/L Chloride Level 109 MEQ/L Carbon Dioxide Level 28.5 MEQ/L Anion Gap 7 MEQ/L Estimat Glomerular Filtration Rate 42 ML/MIN Total Creatine Kinase 187 U/L Creatine Kinase MB 6.6 NG/ML Troponin I LESS THAN 0.02 NG/ML B-Type Natriuretic Peptide 43 PG/ML Urine Color YELLOW Urine Turbidity CLEAR Urine pH 5.5 Urine Specific [place] 1.023 Urine Protein TRACE mg/dL Urine Glucose (UA) NEG mg/dL Urine Ketones NEG mg/dL Urine Occult Blood NEG Urine Nitrite NEG Urine Bilirubin NEG Urine Urobilinogen LESS THAN 2.0 MG/DL Urine Leukocyte Esterase LARGE Urine RBC 3 /hpf Urine WBC 30 /hpf Urine Squamous Epithelial Cells 1 /hpf Urine Transitional Epithelial Cells <1 /hpf Urine Renal Epithelial Cells <1 /hpf Urine Bacteria RARE /hpf Urine Hyaline Casts 2 /lpf Urine Mucus FEW /lpf Microscopic Urinalysis Comment CULTURE INDICATED MDM Medical Decision Making Medical Screen Exam Complete: Yes Emergency Medical Condition: Yes Medical Record Reviewed: Yes Differential Diagnosis Acute coronary syndrome, versus pulmonary embolism, versus pneumonia, versus congestive heart failure Narrative Course During the course of the patient's emergency department visit, the patient's history, examination, and differential diagnosis were reviewed with the patient. The patient was placed on a campus monitor with oximetry and frequent blood pressure monitoring. The patient had IV access obtained and blood work sent for analysis. The patient had an EKG done on arrival. The patient's EKG shows a sinus rhythm with a heart rate of 92, QRS duration 80 ms, QTC [address] segment elevation. T waves are inverted in V1. The patient was initially provided nitroglycerin 1 inch to the chest wall. The patient was initially evaluated respiratory therapy and they recommended a single DuoNeb. This was administered 1. The patient's laboratory studies were reviewed and remarkable for 08/09/17 01:15 Total Protein 7.5, Albumin 3.1 L, Calcium Level 8.2 L, Magnesium Level 2.1, Alkaline Phosphatase 94, Aspartate Amino Transf (AST/SGOT) 30, Alanine Aminotransferase (ALT/SGPT) 21, Total Bilirubin 0.2, BNP is 43. PT PTT within normal limits, urinalysis shows large leukocyte esterase, 30 WBCs, rare bacteria , culture indicated. The patient was given Rocephin 1 g IV. The patient did experience urinary frequency in the emergency department. She denies dysuria or urinary urgency Radiology studies were reviewed and remarkable for a chest x-ray that showed no evidence of acute cardiopulmonary disease. CTA to rule out PE showed no evidence of infiltrate, no evidence of pulmonary embolism. The patient will be admitted to the chest pain center for rule out serial cardiac enzyme protocol followed by consideration of additional evaluation by the desk sergeant. The patient's results were discussed with the patient, including the plan of care. I explained that further testing and/ or monitoring is indicated based on the patient's history, examination, and/ or laboratory findings. Therefore, I recommended admission for additional evaluation. The patient expressed understanding and was agreeable with this plan. The patient was admitted to the hospital in stable condition and sent to a bed under the care of the chest pain center. Diagnosis Primary Impression: Chest pain, rule out acute myocardial infarction Additional Impression: Urinary tract infection Qualified Codes: N30.00 - Acute cystitis without hematuria Admitting Information Admitting Physician Requests: Observation Scripts Cephalexin (Keflex) 500 Mg Capsule 500 MG PO Q8H for Infection for 7 Days, #21 CAP 0 Refills Prov: Naomi Zamora MD 08/09/17 Naomi Zamora MD August 09, 2017 01:10
[2017-08-09] MEDS ORDERED: RESP: ALBUTEROL 2.5 MG/3 ML NEB (SCH) INH ONE (01:15)
[2017-08-09] MEDS ORDERED: SODIUM CHLORIDE 0.9% FLUSH 10 ML FLUSH IVF PRN (01:15)
[2017-08-09] MEDS ORDERED: SERO300T PO (01:28)
[2017-08-09] MEDS ORDERED: LOPE2CAP PO (01:28)
[2017-08-09 01:36] LABS: AUTOMATED NEUTROPHIL # 2.4 TH/MM3 (1.8-7.7); BASOPHIL % 0.5 % (0.0-2.0); EOSINOPHIL # 0.1 TH/MM3 (0-0.4); HEMATOCRIT 30.1 % (35.0-46.0); HEMOGLOBIN 10.2 GM/DL (11.6-15.3); LYMPH % 36.8 % (9.0-44.0); LYMPHOCYTE # 1.8 TH/MM3 (1.0-4.8); MEAN CELL VOLUME 83.4 FL (80.0-100.0); MEAN CORPUSCULAR HEMOGLOBIN 28.2 PG (27.0-34.0); MEAN CORPUSCULAR HGB CONC 33.8 % (32.0-36.0); MEAN PLATELET VOLUME 7.9 FL (7.0-11.0); MONO % 13.2 % (0.0-8.0); MONOCYTE # 0.7 TH/MM3 (0-0.9); NEUT % 47.5 % (16.0-70.0); PLATELET COUNT 191 TH/MM3 (150-450); RED CELL DISTRIBUTION WIDTH 16.1 % (11.6-17.2)
[2017-08-09] MEDS ORDERED: NITROGLYCERIN 2% OINT 1 GM PACKET TOPICAL ONE (01:45)
[2017-08-09 01:50] LABS: PROTHROMBIN TIME - PATIENT 9.8 SEC (9.8-11.6)
--- NOTE | 2017-08-09 01:53 | RADRPT ---
EXAM DATE/TIME: 08/09/2017 01:19 [facility] COMPARISON: CHEST SINGLE AP, May 16, 2017, 14:05. INDICATIONS : Short of breath. MEDICAL HISTORY : Chronic obstructive pulmonary disease. SURGICAL HISTORY : None. ENCOUNTER: Initial ACUITY: 1 day PAIN SCORE: 0/10 LOCATION: Bilateral chest FINDINGS: A single view of the chest demonstrates the lungs to be symmetrically aerated without evidence of mas s, infiltrate or effusion. The cardiomediastinal contours are unremarkable. Osseous structures are intact. CONCLUSION: Normal examination. Ed Sheehan MD on August 09, 2017 at 1:52 Board Certified Radiologist. This report was verified electronically.
[2017-08-09 01:54] LABS: ALBUMIN 3.1 GM/DL (3.4-5.0); ALT (GPT) 21 U/L (10-53); AST (GOT) 30 U/L (15-37); BICARBONATE 28.5 MEQ/L (21.0-32.0); BLOOD UREA NITROGEN 17 MG/DL (7-18); CALCIUM 8.2 MG/DL (8.5-10.1); CHLORIDE 109 MEQ/L (98-107); CREATININE 1.29 MG/DL (0.50-1.00); GLOMERULAR FILTRATION RATE 42 ML/MIN (>89); GLUCOSE,RANDOM 142 MG/DL (74-106); MAGNESIUM 2.1 MG/DL (1.5-2.5); SODIUM (NA) 144 MEQ/L (136-145)
[2017-08-09 01:56] LABS: ALKALINE PHOSPHATASE 94 U/L (45-117); TOTAL BILIRUBIN ADULT 0.2 MG/DL (0.2-1.0); TOTAL PROTEIN 7.5 GM/DL (6.4-8.2); TROPONIN I LESS THAN 0.02 NG/ML (0.02-0.05)
[2017-08-09 03:08] LABS: BACTERIA, URINE RARE /hpf; BILIRUBIN, URINE NEG (NEG); BLOOD, URINE NEG (NEG); GLUCOSE,URINE NEG (NEG); HYALINE CAST, URINE 2 /lpf (RARE); KETONE, URINE NEG (NEG); MUCUS URINE FEW /lpf (OCC); NITRITE,URINE NEG (NEG); PH, URINE 5.5 (5.0-8.5); RENAL EPITHELIAL CELLS <1 /hpf; SQUAMOUS EPITHELIAL CELL URINE 1 /hpf (0-5); TRANSITIONAL EPI CELLS, URINE <1 /hpf; URINE COLOR YELLOW (YELLW/STRAW); URINE LEUKOCYTE ESTERASE LARGE (NEG)
[2017-08-09] MEDS ORDERED: cefTRIAXone INJ 1,000 MG in SODIUM CHLORIDE 0.9% INJ 100 ML IV ONE (03:30)
[2017-08-09] MEDS ORDERED: IOHEXOL 350 MG/ML 10 ML VIAL (for RAD DIAG) IVCONTRAST ONE (03:51)
--- NOTE | 2017-08-09 04:18 | RADRPT ---
EXAM DATE/TIME: 08/09/2017 03:56 [facility] COMPARISON: CT PULMONARY ANGIOGRAM, May 07, 2015, 19:04. INDICATIONS : Chest pain. IV CONTRAST: 56 cc Omnipaque 350 (iohexol) IV RADIATION DOSE: 21.28 CTDIvol (mGy) MEDICAL HISTORY : Cardiovascular disease. Hypertension. Chronic obstructive pulmonary disease.Thyroid cancer SURGICAL HISTORY : Thyroidectomy. Cholecystectomy.Hysterectomy.Morphine pump ENCOUNTER: Initial ACUITY: 1 day PAIN SCALE: 6/10 LOCATION: chest TECHNIQUE: Volumetric scanning of the chest was performed using a pulmonary embolism protocol MIP images were re constructed. Using automated exposure control and adjustment of the mA and/or kV according to patien t size, radiation dose was kept as low as reasonably achievable to obtain optimal diagnostic quality images. DICOM format image data is available electronically for review and comparison. Follow-up recommendations for detected pulmonary nodules are based at a minimum on nodule size and pa tient risk factors according to Fleischner Society Guidelines. FINDINGS: PULMONARY ARTERIES: No filling defects are seen in the pulmonary arteries through the segmental level. LUNGS: There is no consolidation or pneumothorax . No concerning pulmonary nodule is visualized. PLEURAE: There is no pleural thickening or pleural effusion. MEDIASTINUM: There is good visualization of the great vessels of the middle mediastinum. No evidence of mediastin al or hilar adenopathy/mass. MUSCULOSKELETAL: Within normal limits for patient age. MISCELLANEOUS: The visualized upper abdominal organs demonstrate no acute abnormality. CONCLUSION: Normal examination. Ed Sheehan MD on August 09, 2017 at 4:17 Board Certified Radiologist. This report was verified electronically.
[2017-08-09] MEDS ORDERED: CEPH-460 PO (04:22)
[2017-08-09] MEDS ORDERED: ACETAMINOPHEN 500 MG CPLT PO PRN (04:30)
[2017-08-09] MEDS ORDERED: SODIUM CHLORIDE 0.9% FLUSH 10 ML FLUSH IV FLUSH PRN (04:30)
[2017-08-09] MEDS: NITROGLYCERIN 2% OINT 1 GM PACKET TOP SCH ×2 (04:58→12:00)
[2017-08-09 05:19] LABS: TROPONIN I LESS THAN 0.02 NG/ML (0.02-0.05)
[2017-08-09 08:15] LABS: TROPONIN I LESS THAN 0.02 NG/ML (0.02-0.05)
--- NOTE | 2017-08-09 08:33 | MH ---
cc: Taiwo Sosa MD DATE OF ADMISSION: 08/09/2017 HISTORY OF PRESENT ILLNESS: This is a 62-year-old woman who was admitted to the hospital with chest discomfort. She has a long history of chronic pain primarily in her back and legs for which she originally had a morphine pump. This apparently ran out of medications 2 months ago and she has had trouble refilling it; however, her doctors have okayed her for refill and that is pending. Last night after dinner, she developed a sharp substernal chest discomfort which was pleuritic in nature. She noted questionable nausea, no diaphoresis was present. This persisted for several hours and she came to the emergency department. No cough or sputum production has been present. She denies any real shortness of breath apart from the pain with taking a deep breath. She does have a history of cardiac disease, although she cannot recall the details of that. In reviewing her record, we do note that she has had multiple normal stress tests with a normal heart cardiac catheterization in 2006. She does follow with Dr. Mendoza who has seen her recently. Risk factors for coronary disease are significant for hypertension. She is a nonsmoker. She denies any history of diabetes. She was recently admitted to the hospital for a questionable CVA and since that time, her memory has been somewhat poor. MEDICATIONS: Her medications at home have included: 1. Keflex. 2. Synthroid. 3. Morphine. 4. Gabapentin. 5. Reglan. 6. Potassium. 7. Catapres. 8. Seroquel 9. Aspirin. 10. Keppra. 11. Trazodone. 12. Seroquel. PAST MEDICAL HISTORY: Her past history has otherwise been rather complicated including a history of hypothyroidism, COPD, depression, cholecystectomy, thyroidectomy and chronic back pain with lumbar surgeries x 4. PHYSICAL EXAMINATION: GENERAL: She is awake and alert. She is in no acute distress. VITAL SIGNS: Her blood pressure is 136/70, pulse is 93. NECK: There is no neck vein distention. No carotid bruits are present. LUNGS: Clear. CARDIOVASCULAR: Exam reveals a regular rate and rhythm. No significant murmur is present. There is no gallop. EXTREMITIES: Reveal no edema and her peripheral pulses are intact. LABORATORY DATA: Demonstrates normal troponins and normal BNP. She does have some mild renal insufficiency. Urine shows WBCs of 30 per high power field with rare bacteria. A culture has been sent. We do note that she is already on Keflex. Electrocardiogram and chest x-ray are normal, as is a CT angiogram, which revealed no abnormalities in either pulmonary arteries or the lung parenchyma. ASSESSMENT: The patient has atypical chest discomfort. She does not appear to have any signs to suggest unstable angina or pulmonary emboli or pulmonic pathology acutely. I will discuss this with her poultry dressing worker, Dr. Mendoza. He agrees with allowing her to [facility] and he will see her tomorrow or Wednesday for a followup. MD MAE Rodriguez/ERICA , 08:14 AM , 08:31 AM
[2017-08-09] MEDS ORDERED: SODIUM CHLORIDE 0.9% FLUSH 10 ML FLUSH IV FLUSH SCH (09:00)
--- NOTE | 2017-08-09 09:41 | HHI.DCPOC ---
Discharge Care Plan Diagnosis: (1) Atypical chest pain Goals to Promote Your Health * To prevent worsening of your condition and complications * To maintain your health at the optimal level Directions to Meet Your Goals Take your medications as prescribed Follow your dietary instruction Follow activity as directed Keep your appointments as scheduled Take your immunizations and boosters as scheduled If your symptoms worsen call your PCP, if no PCP go to Urgent Care Center or Emergency Room Smoking is Dangerous to Your Health. Avoid second hand smoke Call the 24-hour hour crisis hotline for domestic abuse at Dejah Parker August 09, 2017 09:41
--- NOTE | 2017-08-09 16:20 | EKG ---
Date Performed: 08/09/2017 Time Performed: 01:10:08 PTAGE: 62 years EKG: NORMAL Sinus rhythm WITH SHORT AK INTERVAL ABNORMAL RHYTHM ECG PREVIOUS TRACING : 05/16/2017 14.17 Since previous tracing, no significant change noted DOCTOR: Taiwo Sosa Interpretating Date/Time 08/09/2017 16:17:56
--- NOTE | 2017-08-09 16:21 | EKG ---
Date Performed: 08/09/2017 Time Performed: 04:33:50 PTAGE: 62 years EKG: Sinus rhythm WITH FIRST DEGREE AV BLOCK ABNORMAL ECG PREVIOUS TRACING : 08/09/2017 01.10 Since previous tracing, no significant change noted DOCTOR: Taiwo Sosa Interpretating Date/Time 08/09/2017 16:18:42
--- NOTE | 2017-08-09 16:22 | EKG ---
Date Performed: 08/09/2017 Time Performed: 07:55:10 PTAGE: 62 years EKG: Sinus rhythm WITH FIRST DEGREE AV BLOCK ABNORMAL ECG PREVIOUS TRACING : 08/09/2017 04.33 Since previous tracing, no significant change noted DOCTOR: Taiwo Sosa Interpretating Date/Time 08/09/2017 16:19:24
== END 2017-08-09 14:47 ==
LOC: NEPC 01:03 → NEDA 03:50 → NEPFCDU 05:11
PROVIDERS: ADMIT Internal Medicine Interventional Cardiology; ATTEND Internal Medicine Interventional Cardiology
DX: R07.89 Other chest pain (principal); N30.00 Acute cystitis without hematuria; M54.9 Dorsalgia, unspecified; G89.29 Other chronic pain; R94.31 Abnormal electrocardiogram [ECG] [EKG]; E07.9 Disorder of thyroid, unspecified; G43.909 Migraine, unspecified, not intractable, without status migrainosus
CPT/HCPCS: 71045; 71275; 80053; 81001; 82550; 82552; 83735; 83880; 84484; 85025; 85610; 85730; 87086; 93005; 94664; 96365; 99285; G0378; J0696; J7613; Q9967

== ENCOUNTER → 2017-09-01 | Outpatient (CLI) | payer MEDICARE ==
[~2017-09-01] MED LIST changes: -ASPI81TA81 PO; +CEPH-460 PO; -LACTCAP8 PO; +LOPE2CAP PO
[2017-09-01 10:25] LABS: AUTOMATED NEUTROPHIL # 5.1 TH/MM3 (1.8-7.7); BASOPHIL # 0.1 TH/MM3 (0-0.2); BASOPHIL % 1.1 % (0.0-2.0); EOSINOPHIL # 0.1 TH/MM3 (0-0.4); EOSINOPHIL % 1.8 % (0.0-4.0); HEMATOCRIT 38.4 % (35.0-46.0); HEMOGLOBIN 12.6 GM/DL (11.6-15.3); LYMPH % 28.8 % (9.0-44.0); LYMPHOCYTE # 2.4 TH/MM3 (1.0-4.8); MEAN CELL VOLUME 83.9 FL (80.0-100.0); MEAN CORPUSCULAR HEMOGLOBIN 27.5 PG (27.0-34.0); MEAN CORPUSCULAR HGB CONC 32.7 % (32.0-36.0); MEAN PLATELET VOLUME 8.3 FL (7.0-11.0); MONOCYTE # 0.5 TH/MM3 (0-0.9); NEUT % 62.3 % (16.0-70.0); PLATELET COUNT 289 TH/MM3 (150-450); RED BLOOD COUNT 4.57 MIL/MM3 (4.00-5.30); RED CELL DISTRIBUTION WIDTH 17.2 % (11.6-17.2); WHITE BLOOD COUNT 8.2 TH/MM3 (4.0-11.0)
[2017-09-01 10:25] LABS: BILIRUBIN, URINE NEG (NEG); BLOOD, URINE NEG (NEG); GLUCOSE,URINE NEG (NEG); KETONE, URINE NEG (NEG); NITRITE,URINE NEG (NEG); PH, URINE 5.5 (5.0-8.5); URINE COLOR YELLOW (YELLW/STRAW); URINE LEUKOCYTE ESTERASE NEG (NEG)
[2017-09-01 10:31] LABS: RBC, URINE 0-3 /hpf (0-3); WBC, URINE 0-2 /hpf (0-5)
== END ==
LOC: PHPRE 09:48
PROVIDERS: ATTEND Pain Medicine Interventional Pain Medicine
DX: Z01.812 Encounter for preprocedural laboratory examination (principal); Z45.49 Encounter for adjustment and management of other implanted nervous system device
CPT/HCPCS: 36415; 81001; 84132; 85025

== ENCOUNTER → 2017-09-09 | Day surgery (SDC) | payer MEDICARE, MEDICAID ==
[~2017-09-09] VITALS: Ht 170.2 cm; Wt 92.0 kg
[~2017-09-09] MED LIST changes: +*MEPERIDINE 25 MG INJ VIAL PERIprocedural Use ONLY ONE; -ACET-822 PO; +BUPIVACAINE/EPINEPHRINE 0.75% PF 30 ML VIAL ONE; -CEPH-460 PO; +CHLORHEXIDINE GLUCONATE 2 % 1 PACK (2 CLOTHS) TOPICAL PRN; +INSULIN HUMAN REGULAR 1,000 UNITS/10 ML VIAL SQ PRN; +LACTATED RINGER'S 1000 ML IV PRN; +LIDOCAINE HCL 1% 20 ML VIAL ONE; -LOPE2CAP PO; +METOPROLOL TARTRATE 25 MG TAB PO PRN; +MORPHINE SULFATE IT ONE; +POVIDONE IODINE 5% (ANTISEPSIS KIT) 4 APPLICATIONS EACH NARE PRN; +SODIUM CHLORID 0.9% 500 ML IV PRN; +VANCOMYCIN 500 MG/NS 100 ML IV SCH; +ceFAZolin 1,000 MG/NS 100 ML IV SCH
[2017-09-09 12:20] VITALS: PULSE 86
[2017-09-09 13:15] VITALS: PULSE 78; TEMP 97.5
--- NOTE | 2017-09-09 13:41 | MP ---
cc: Giovanni Cunningham MD DATE OF OPERATION: 09/09/2017 PROCEDURE PERFORMED: Implantation of Medtronic SynchroMed pump. PREOPERATIVE DIAGNOSIS: Failed back syndrome with intractable pain. POSTPROCEDURE DIAGNOSIS: Failed back syndrome with intractable pain. DETAILS OF PROCEDURE: An IV was started in the holding area. The patient was given IV antibiotics. Surgical consent was signed. The surgical site was marked. The patient was taken to the operating room, given general LMA anesthesia. Her abdomen was prepped with ChloraPrep and draped with sterile drapes. The area over her implanted pump in the left abdominal wall was infiltrated with Marcaine 0.75%, which contained epinephrine. Then, an incision was made over the pump and the pump was exteriorized using blunt and sharp dissection. Then, a new Medtronics SynchroMed pump had been filled with sterile morphine on a side table and purged, the old pump was disconnected from the intrathecal catheter, and immediately the new pump was connected to the intrathecal catheter over the nipple and then secured with a 2-0 Ethibond suture. Then, the subcutaneous pocket and incisions were irrigated with Betadine. The new pump was placed in the subcutaneous pocket and anchored to the underlying fascia using a 2-0 Ethibond suture. Then, the incision was closed using 3-0 Monocryl in the subcuticular tissue and 3-0 nylon on the skin. The incision was covered with sterile adhesive dressings, and the patient was taken to the recovery room with stable vital signs and neurologically intact. MD DAVID Alvarado/RASHMI , 01:27 PM , 01:40 PM
[2017-09-09 13:50] VITALS: BP 138/99; PULSE 88; RESP 16; O2SAT 96
== END | disposition home or self-care (01) ==
LOC: PHSDC 08:58
PROVIDERS: ATTEND Pain Medicine Interventional Pain Medicine
DX: M96.1 Postlaminectomy syndrome, not elsewhere classified (principal); M54.5 Low back pain; I10 Essential (primary) hypertension; I48.91 Unspecified atrial fibrillation; J44.9 Chronic obstructive pulmonary disease, unspecified
CPT/HCPCS: 00300; 62362; C1772; J2175; J2274; J3010; J3370; J7120